=== PATIENT | female | born 1935 | race Hispanic/Latino ===

== ENCOUNTER 2017-06-26 20:02 | Observation (INO) | payer OTHER ==
--- OUTSIDE RECORDS SUMMARY | 2017-06-26 20:04 | XMS REPORT | Clinical Summary ---
:1935 Author Organization [facility] Address [address] [place] [address] Care Team Providers Name Role Phone Arslan Lema MD Primary Care Provider Allergies Active Allergy Reactions Severity Noted Date Comments Ramipril 10/30/2016 Codeine GI Intolerance 10/30/2016 Propoxyphene N-Acetaminophen 10/30/2016 Hydrocodone 10/30/2016 Feels like "drunk" Morphine Itching 10/30/2016 Clopidogrel GI Intolerance 10/30/2016 Enalapril Maleate 10/30/2016 Hydrocodone-Acetaminophen 10/30/2016 Simvastatin GI Intolerance 10/30/2016 Current Medications Prescription Sig. Disp. Refills Start Date End Date Status bimatoprost Administer 1 Active (LUMIGAN) 0.03 % drop to both ophthalmic drops eyes nightly. insulin regular Inject under the Active (HumuLIN-R, skin 3 (three) NovoLIN-R) 100 times a day. Per unit/mL injection sliding scale atorvastatin Take 40 mg by Active (LIPITOR) 40 MG mouth daily. tablet hydrALAZINE Take 50 mg by Active (APRESOLINE) 50 MG mouth 3 (three) tablet times a day. lisinopril Take 20 mg by Active (PRINIVIL,ZESTRIL) mouth 2 (two) 20 mg tablet times a day. QUEtiapine Take 50 mg by Active (SEROquel) 50 MG mouth nightly. tablet gabapentin Take 300 mg by Active (NEURONTIN) 300 mg mouth 2 (two) capsule times a day. warfarin Take 4 mg by Active (COUMADIN) 4 MG mouth daily. tablet B complex-minerals Take by mouth. Active tablet calcium acetate TK 2 CS PO WITH 11 10/07/2016 Active (PHOSLO) 667 mg MEALS AND 1 C PO capsule WITH SNACK carvedilol (COREG) Take 6.25 mg by Active 6.25 MG tablet mouth 2 (two) times a day with meals. citalopram Take 1.5 tablets 0 08/17/2016 Active (CeleXA) 20 MG by mouth daily. tablet clonIDINE TK 1 T PO Q 8 H 2 10/03/2016 Active (CATAPRES) 0.1 MG PRN IF SYSTOLIC tablet BLOOD PRESSURE IS GREATER THAN 160-180 fluticasone USE 1 SPRAY IEN 5 10/25/2016 Active (FLONASE) 50 BID mcg/actuation nasal spray GÓMEZ-CASSIA RX 1 tablet daily. 8 09/27/2016 Active 1-60-300 mg-mg-mcg tablet carvedilol (COREG) Take 12.5 mg by Discontinued 12.5 MG tablet mouth 2 (two) 7 times a day with meals. citalopram Take 10 mg by Discontinued (CeleXA) 10 MG mouth daily. 7 tablet traMADol (ULTRAM) Take 1 tablet 40 tablet 0 11/08/2016 50 mg tablet (50 mg total) by 7 mouth every 6 (six) hours as needed for moderate pain for up to 40 doses. Active Problems No known active problems Encounters Date Type Specialty Care Team Description 11/09/2016 Office Visit General Surgery [place], ESRD on dialysis Herman Bazan MD (Primary Dx) 11/08/2016 Hospital Encounter General Surgery [place], ESRD (end stage renal Herman Bazan MD disease) on dialysis (Primary Dx) 11/08/2016 Procedure Pass General Surgery 11/08/2016 Surgery General Surgery [place], LEFT UPPER EXTREMITY Herman Bazan MD AV GRAFT REVISION 10/30/2016 Pre-Admit Testing Pre-Admission [place], Preop testing Appointment Testing Herman Bazan MD (Primary Dx) 10/30/2016 Office Visit General Surgery [place], Hemodialysis access, Herman Bazan MD AV graft (Primary Dx) 10/30/2016 Anesthesia Event General [facility], TOMAS after 06/25/2016 Social History Tobacco Use Types Packs/Day Years Used Date Former Smoker Cigarettes Quit: 1989 Smokeless Tobacco: Never Used Alcohol Use Drinks/Week oz/Week Comments Yes wine occasionally Sex Assigned at Date Recorded Not on file Last Filed Vital Signs Vital Sign Reading Time Taken Blood Pressure 159/72 11/08/2016 3:26 PM CDT Pulse 71 11/08/2016 3:26 PM CDT Temperature 36.5 C (97.7 F) 11/08/2016 3:26 PM CDT Respiratory Rate 18 11/08/2016 3:26 PM CDT Oxygen Saturation 95% 11/08/2016 3:26 PM CDT Inhaled Oxygen Concentration - - Weight 68.5 kg (151 lb) 11/08/2016 10:10 AM CDT Height 160 cm (5' 3") 11/08/2016 10:10 AM CDT Body Mass Index 26.75 11/08/2016 10:10 AM CDT Plan of Treatment Health Maintenance Due Date Last Done Comments ZOSTER VACCINE 1996 PNEUMOCOCCAL POLYSACCHARIDE VACCINE AGE 65 AND OVER 2001 PNEUMOCOCCAL-13 2001 INFLUENZA VACCINE 10/24/2016 Implants Implanted Type Area Grounds Supervisor Device Expiration Model / Identifier Date Serial / Lot Graft Vasclr Acuseal 40cm 6mm - [id number] - [id number] Vascular N/A: N/A W L GORE 05/19/2019 [id number] / Implanted: Qty: 1 on 11/08/2016 by Herman Fraga MD Graft [id number] / [id number] Procedures Procedure Name Priority Date/Time Associated Diagnosis Comments NJ AN ELECTIVE Routine 11/08/2016 11:06 AM SUPRAGLOTTIC AIRWAY CDT Procedure Note - Gene Coffman MD - 11/08/2016 11:05 AM CDT Airway Performed by: GENE COFFMAN Authorized by: GENE COFFMAN Location: OR Urgency: Elective Difficult Airway: No Preoxygenated with 100% O2: No C-spine Precautions Maintained Throughout: No Mask Ventilation: Assisted mask Final Airway Type: Supraglottic airway Final LMA: Classic LMA Size: 4 Number of Attempts at Approach: 1 LEFT UPPER EXTREMITY AV GRAFT 11/08/2016 10:30 AM CDT End stage renal disease REVISION after 06/25/2016 Results POC glucose (11/08/2016 12:58 PM)Only the most recent of2 resultswithin the time period is included. Component Value Ref Range POC glucose 85 65 - 99 mg/dL Comment: Meter ID: [id number] Shredded Filler Cigar Maker Machine: Beni Lowry Specimen Performing Laboratory [facility] DEPARTMENT OF PATHOLOGY AND [facility] MEDICINE [address] [place] [id number] Potassium, syringe (11/08/2016 9:50 AM) Component Value Ref Range Potassium, syringe 3.7 3.5 - 5.0 mEq/L Specimen Performing Laboratory Blood [facility] DEPARTMENT OF PATHOLOGY AND [facility] MEDICINE [address] [place] [address] Hemoglobin, syringe (11/08/2016 9:50 AM) Component Value Ref Range Hemoglobin, syringe 10.2 (L) 12.0 - 16.0 g/dL Specimen Performing Laboratory Blood [facility] DEPARTMENT OF PATHOLOGY AND [facility] MEDICINE [address] [place] [phone] Glucose level, syringe (11/08/2016 9:50 AM) Component Value Ref Range Glucose, syringe 99 65 - 99 mg/dL Specimen Performing Laboratory Blood [facility] DEPARTMENT OF PATHOLOGY [address] [address] Partial thromboplastin time, activated (11/08/2016 9:50 AM)Only the most recent of2 resultswithin the time period is included. Component Value Ref Range PTT 37.3 (H) 23.0 - 36.0 sec Comment: PTT therapeutic range for unfractionated heparin is 61.0-112.0 seconds which corresponds to Anti-Xa 0.3-0.7 U/ml. Specimen Performing Laboratory Blood [facility] DEPARTMENT PATHOLOGY [facility] MEDICINE [address] [place] [address] Prothrombin time with INR (11/08/2016 9:50 AM)Only the most recent of2 resultswithin the time period is included. Component Value Ref Range Prothrombin time 15.4 (H) 12.0 - 15.0 sec INR 1.2 Comment: The International Normalized Ratio (INR) is a therapeutic monitoring tool for patients who are stable on oral anticoagulant therapy. An INR of 2.0-3.0 is suggested for deep vein thrombosis/pulmonary embolism. Specimen Performing Laboratory Blood [facility] DEPARTMENT PATHOLOGY AND [facility] MEDICINE [address] [place] [address] ECG Pre/Post Op (10/30/2016 1:45 PM) Component Value Ref Range Ventricular rate 66 Atrial rate 66 QRSD interval 84 QT interval 442 QTC interval 463 QRS axis 1 56 T wave axis 112 EKG impression Electronic atrial pacemaker-Low voltage QRS-Cannot rule out Anterior infarct , age undetermined-Abnormal ECG- Specimen Performing Laboratory [facility] MUSE [address] [place] [phone] Estimated GFR (10/30/2016 1:29 PM) Component Value Ref Range GFR Non Af Amer 6 (A) mL/min/1.73 m2 GFR Af Amer 7 (A) mL/min/1.73 m2 Comment: Chronic kidney disease: <60 mL/min/1.73m2 Kidney failure: <15 mL/min/1.73m2 The estimated GFR is calculated from the IDMS-traceable Modification of Diet in Renal Disease Equation. The accuracy of the calculation is poor when the creatinine is normal. Calculated values >90 mL/min/1.73m2 are not reported. This equation has not been validated in children (<18 years), women, the elderly (>70 years), or ethnic groups other than Caucasians and Americans. Specimen Performing Laboratory Plasma specimen [facility] DEPARTMENT OF PATHOLOGY AND GENOMIC MEDICINE [address] [place] [address] CBC with platelet and differential (10/30/2016 1:29 PM) Component Value Ref Range WBC 7.17 4.50 - 11.00 k/uL RBC 3.32 (L) 4.20 - 5.50 m/uL HGB 10.1 (L) 12.0 - 16.0 g/dL HCT 33.1 (L) 37.0 - 47.0 % MCV 99.7 82.0 - 100.0 fL MCH 30.4 27.0 - 34.0 pg MCHC 30.5 (L) 31.0 - 37.0 g/dL RDW - SD 51.8 37.0 - 55.0 fL MPV 10.2 8.8 - 13.2 fL Platelet count 278 150 - 400 k/uL Nucleated RBC 0.00 /100 WBC Neutrophils 71.1 (H) 39.0 - 69.0 % Lymphocytes 14.4 (L) 25.0 - 45.0 % Monocytes 9.1 0.0 - 10.0 % Eosinophils 4.2 0.0 - 5.0 % Basophils 0.4 0.0 - 1.0 % Immature granulocytes 0.8Comment: "Immature granulocytes" 0.0 - 1.0 % (promyelocytes, myelocytes, metamyelocytes) Specimen Performing Laboratory Blood [facility] DEPARTMENT OF PATHOLOGY AND GENOMIC MEDICINE [address] [place] [address] Hemoglobin A1c (10/30/2016 1:29 PM) Component Value Ref Range Hemoglobin A1C 6.5 (H) 4.0 - 5.6 % Comment: HbA1c cutoffs for diagnosing diabetes: 4.0% - 5.6%=normal 5.7% - 6.4%=increased risk for diabetes (prediabetes) >=6.5%=diabetes Goals for glycemic control (ADA 2016) < 7.0%Target for non adults with diabetes. More or less stringent targets may be appropriate for individual patients. <7.5% Target for Children and adolescents with type 1 diabetes. Specimen Performing Laboratory Blood [facility] DEPARTMENT OF PATHOLOGY AND GENOMIC MEDICINE [address] [place] [address] Comprehensive metabolic panel (10/30/2016 1:29 PM) Component Value Ref Range Sodium 135 135 - 148 mEq/L Potassium 4.7 3.5 - 5.0 mEq/L Chloride 94 (L) 98 - 112 mEq/L CO2 26 24 - 31 mEq/L Anion gap 15 7 - 15 mEq/L Comment: Starting from June , anion gap calculation no longer incorporates potassium. Please note the change. BUN 30 (H) 8 - 23 mg/dL Creatinine 6.6 (H) 0.5 - 0.9 mg/dL Glucose 104 (H) 65 - 99 mg/dL Calcium 9.6 8.8 - 10.2 mg/dL Protein 6.9 6.3 - 8.3 g/dL Comment: [place] 4.6-7.0 g/dL 1 week 4.4-7.6 g/dL 7 months-1year5.1-7.3 g/dL 1-2 years5.6-7.5 g/dL >3 years6.0-8.0 g/dL 18-150 6.3-8.3 g/dL Albumin 3.2 (L) 3.5 - 5.0 g/dL A/G ratio 0.9 0.7 - 3.8 Alkaline phosphatase 119 (H) 35 - 104 U/L AST 18 10 - 35 U/L ALT 14 5 - 50 U/L Total bilirubin 0.4 0.0 - 1.2 mg/dL Specimen Performing Laboratory Plasma specimen [facility] DEPARTMENT OF PATHOLOGY AND GENOMIC MEDICINE [address] [place] [address] after 06/25/2016 Insurance Payer Benefit Plan / Group Subscriber ID Type Phone Address MEDICARE MEDICARE PART A AND B xxxxxxxxxx Medicare [place], [place] [phone] [place], [place] [address]
[2017-06-26 21:02] LABS: Absolute Lymphocytes (CBC) 1.2 K/uL (0.7-4.9); Absolute Monocytes 0.6 K/uL (0.1-1.3); Absolute Neutrophil 6.6 K/uL (1.8-8.0); Basophils % 0.9 % (0-1.3); Eosinophils % 2.7 % (0-4.4); Hematocrit 38.9 % (36.0-45.0); Lymphocytes % 13.5 % (15.3-44.8); MCH 30.6 pg (27.0-35.0); MCV 93.3 fL (80-100); MPV 8.3 fL (7.6-11.3); Monocytes % 6.9 % (3.3-12.3); RBC Red Blood Cell Count 4.16 M/uL (3.86-4.86)
[2017-06-26] MEDS ORDERED: MUPIROCIN 2% OINT 22GM TUBE TOP ONE (21:07)
[2017-06-26] MEDS ORDERED: NA CHLORIDE 0.9% 1,000 ML ONE (21:07)
[2017-06-26 21:21] LABS: Albumin 3.9 g/dL (3.2-5.5); Bilirubin Total 0.8 mg/dL (0.3-1.2); Protein, Total 7.8 g/dL (6.0-8.3)
--- NOTE | 2017-06-26 21:39 | EDPHYS ---
Physician Documentation [facility] Name: Dianelys Carroll Age: 82 yrs Sex: Female : 1935 Arrival Date: 06/26/2017 Time: 20:06 Bed 15 Private MD: Arslan Lema ED Physician Michael Tamayo HPI: 06/26 20:43 This 82 yrs old Female presents to ER via Wheelchair with complaints of Toe aron Injury. 20:43 The patient presents with pain, tenderness. The complaints affect the right foot. aron Context: The problem was sustained at an unknown location. Onset: The symptoms/episode began/occurred 2 day(s) ago. Modifying factors: The symptoms are alleviated by elevation of extremity, the symptoms are aggravated by nothing. wearing shoes. Associated signs and symptoms: The patient has no apparent associated signs or symptoms. Severity of symptoms: At their worst the symptoms were mild, moderate, in the emergency department the symptoms are unchanged. The patient has experienced similar episodes in the past, several times. Historical: - Allergies: 20:17 clopidogrel bisulfate; aj 20:17 Codeine; aj 20:17 enalapril maleate; aj 20:17 enalaprilat dihydrate; aj 20:17 hydrocodone bitartrate; aj 20:17 OPIATES; aj 20:17 propoxyphene napsylate; aj 20:17 Ramipril; aj 20:17 Simvastatin; aj 20:17 Demerol; aj - Home Meds: 20:17 carvedilol Oral [Active]; insulin [Active]; carvedilol 12.5 mg oral tab 1 tab 2 times aj per day [Active]; Lipitor 40 mg Oral tab 1 tab once daily [Active]; lisinopril 20 mg Oral tab 1 tab once daily [Active]; Seroquel 50 mg Oral tab 1 tab 2 times per day [Active]; citalopram oral 30mg once daily [Active]; gabapentin 300 mg oral cap 1 cap 3 times per day [Active]; - PMHx: 20:17 Diabetes - IDDM; ESRD; Pacemaker; Dialysis; aj - PSHx: 20:17 dialysis graft to left arm; Bladder suspension; Carpal Tunnel Repair; Hysterectomy; aj Kidney stents; cataract surgery; - Immunization history:: Adult Immunizations up to date. - Social history:: Smoking status: Patient/guardian denies using tobacco. - Family history:: not pertinent. ROS: 20:43 Constitutional: Negative for fever, chills, and weight loss, Eyes: Negative for injury, aron pain, redness, and discharge, ENT: Negative for injury, pain, and discharge, Neck: Negative for injury, pain, and swelling, Cardiovascular: Negative for chest pain, palpitations, and edema, Respiratory: Negative for shortness of breath, cough, wheezing, and pleuritic chest pain, Abdomen/GI: Negative for abdominal pain, nausea, vomiting, diarrhea, and constipation, Back: Negative for injury and pain, : Negative for injury, bleeding, discharge, and swelling, Skin: Negative for injury, rash, and discoloration, Neuro: Negative for headache, weakness, numbness, tingling, and seizure, Psych: Negative for depression, anxiety, suicide ideation, homicidal ideation, and hallucinations, Allergy/Immunology: Negative for hives, rash, and allergies, Endocrine: Negative for neck swelling, polydipsia, polyuria, polyphagia, and marked weight changes. 20:43 MS/extremity: Positive for decreased range of motion, pain, tenderness, of the ball of right foot. Exam: 20:43 Constitutional: This is a well developed, well nourished patient who is awake, alert, aron and in no acute distress. Head/Face: Normocephalic, atraumatic. Eyes: Pupils equal round and reactive to light, extra-ocular motions intact. Lids and lashes normal. Conjunctiva and sclera are non-icteric and not injected. Cornea within normal limits. Periorbital areas with no swelling, redness, or edema. ENT: Nares patent. No nasal discharge, no septal abnormalities noted. Tympanic membranes are normal and external auditory canals are clear. Oropharynx with no redness, swelling, or masses, exudates, or evidence of obstruction, uvula midline. Mucous membranes moist. Neck: Trachea midline, no thyromegaly or masses palpated, and no cervical lymphadenopathy. Supple, full range of motion without nuchal rigidity, or vertebral point tenderness. No Meningismus. Chest/axilla: Normal chest wall appearance and motion. Nontender with no deformity. No lesions are appreciated. Cardiovascular: Regular rate and rhythm with a normal S1 and S2. No gallops, murmurs, or rubs. Normal PMI, no JVD. No pulse deficits. Respiratory: Lungs have equal breath sounds bilaterally, clear to auscultation and percussion. No rales, rhonchi or wheezes noted. No increased work of breathing, no retractions or nasal flaring. Abdomen/GI: Soft, non-tender, with normal bowel sounds. No distension or tympany. No guarding or rebound. No evidence of tenderness throughout. Back: No spinal tenderness. No costovertebral tenderness. Full range of motion. Female : Normal external genitalia. Neuro: Awake and alert, GCS 15, oriented to person, place, time, and situation. Cranial nerves II-XII grossly intact. Motor strength 5/5 in all extremities. Sensory grossly intact. Cerebellar exam normal. Normal gait. Psych: Awake, alert, with orientation to person, place and time. Behavior, mood, and affect are within normal limits. 20:43 Skin: Appearance: Color: erythematous, Temperature: cool, Moisture: dry, petechiae, not noted, ecchymosis, not noted, diaphoresis is not appreciated. Vital Signs: 20:17 BP 85 / 47; Pulse 81; Resp 18; Temp 97.5; Pulse Ox 92% on R/A; Weight 66 kg; Height 5 aj ft. 3 in. (160.02 cm); 21:30 BP 115 / 57; Pulse 80; Resp 14; Pulse Ox 98% ; bp 22:30 BP 118 / 73; Pulse 73; Resp 19; Pulse Ox 97% ; bp 23:08 BP 111 / 62; Pulse 73; Resp 17; Pulse Ox 99% on R/A; Pain 0/10; bs1 06/27 00:00 BP 115 / 68; Pulse 82; Resp 16; Pulse Ox 99% on R/A; Pain 0/10; bs1 06/26 20:17 Body Mass Index 25.77 (66.00 kg, 160.02 cm) [facility]: 06/26 20:23 Patient medically screened. [facility] 20:43 Data reviewed: vital signs, nurses notes, lab test result(s), EKG, radiologic studies, aron doppler, plain films. 06/26 20:42 Order name: CBC with Diff; Complete Time: 21:25 [facility] 06/26 20:42 Order name: Comprehensive Metabolic Panel [facility] 06/26 20:46 Order name: Troponin I; Complete Time: 21:25 [facility] 06/26 20:58 Order name: Creatine Phosphokinase EDUT 06/26 20:42 Order name: Chest Single View XRAY [facility] 06/26 20:42 Order name: US Lower Extremity (Artery [employer]) [facility] 06/26 20:42 Order name: Foot Right 2 View XRAY [facility] 06/26 20:58 Order name: CKMB Creatine Kinase MB EDUT 06/26 22:00 Order name: Sed Rate [facility] 06/26 23:19 Order name: Sedimentation Rate, Stephanieren EDUT 06/26 20:42 Order name: EKG; Complete Time: 20:43 [facility] 06/26 20:42 Order name: EKG - Nurse/Tech; Complete Time: 20:53 [facility] Administered Medications: 21:09 Drug: Bactroban Ointment 2 % 1 application Route: Topical; Site: affected area; bs1 21:18 Drug: NS 0.9% 1000 ml Route: IV; Rate: 100 ml/hr; Site: right forearm; bs1 22:59 Follow up: IV Status: Completed infusion bp 22:21 Drug: Zosyn 2.25 grams Route: IVPB; Infused Over: 60 mins; Site: right hand; bp 22:59 Follow up: IV Status: Completed infusion bp Disposition: 06/26/17 21:38 Hospitalization ordered by Nisha Lee for Observation. Preliminary diagnosis are Other peripheral vascular diseases, Type 1 diabetes mellitus, Non-pressure chronic ulcer of other part of right foot, Hypotension - elevated troponion. - Bed requested for Telemetry/MedSurg (observation). - Status is Observation. bs1 - Condition is Fair. - Problem is new. - Symptoms have improved. UTI on Admission? No Signatures: Dispatcher [employer] EDMS Vanda Mejia RN RN kl Myers, Amanda, RN RN aj Anderson, Corey, MD MD cha Peltier, Brian, RN RN bp Salazar, Brittany, RN RN bs1 Corrections: (The following items were deleted from the chart) 20:58 20:46 CREATINE PHOSPHOKINASE+C.LAB.BRZ ordered. EDMS EDMS 20:58 20:46 CKMB+C.LAB.BRZ ordered. EDMS EDMS
--- NOTE | 2017-06-26 21:39 | ER ---
Nurse's Notes [facility] Name: Dianelys Carroll Age: 82 yrs Sex: Female : 1935 Arrival Date: 06/26/2017 Time: 20:06 Bed 15 Private MD: Arslan Lema Diagnosis: Other peripheral vascular diseases;Type 1 diabetes mellitus;Non-pressure chronic ulcer of other part of right foot;Hypotension-elevated troponion Presentation: 06/26 20:13 Presenting complaint: Patient states: Wound to right foot for 1 week. Transition of aj care: patient was not received from another setting of care. Onset of symptoms was June 19, 2017. Care prior to arrival: None. 20:13 Method Of Arrival: Wheelchair aj 20:13 Acuity: EFRAÍN 3 aj Triage Assessment: 20:17 General: Appears in no apparent distress. comfortable, Behavior is calm, cooperative, aj appropriate for age. Pain: Complains of pain in medial aspect of right toes. Neuro: Level of Consciousness is awake, alert, obeys commands, Oriented to person, place, time, situation. Respiratory: Airway is patent Respiratory effort is even, unlabored, Respiratory pattern is regular, symmetrical. Derm: Skin is intact, is healthy with good turgor, Skin is pink, warm \T\ dry. normal, Wound noted medial aspect of right toes. Historical: - Allergies: 20:17 clopidogrel bisulfate; aj 20:17 Codeine; aj 20:17 enalapril maleate; aj 20:17 enalaprilat dihydrate; aj 20:17 hydrocodone bitartrate; aj 20:17 OPIATES; aj 20:17 propoxyphene napsylate; aj 20:17 Ramipril; aj 20:17 Simvastatin; aj 20:17 Demerol; aj - Home Meds: 20:17 carvedilol Oral [Active]; insulin [Active]; carvedilol 12.5 mg oral tab 1 tab 2 times aj per day [Active]; Lipitor 40 mg Oral tab 1 tab once daily [Active]; lisinopril 20 mg Oral tab 1 tab once daily [Active]; Seroquel 50 mg Oral tab 1 tab 2 times per day [Active]; citalopram oral 30mg once daily [Active]; gabapentin 300 mg oral cap 1 cap 3 times per day [Active]; - PMHx: 20:17 Diabetes - IDDM; ESRD; Pacemaker; Dialysis; aj - PSHx: 20:17 dialysis graft to left arm; Bladder suspension; Carpal Tunnel Repair; Hysterectomy; aj Kidney stents; cataract surgery; - Immunization history:: Adult Immunizations up to date. - Social history:: Smoking status: Patient/guardian denies using tobacco. - Family history:: not pertinent. Screenin:07 Abuse screen: Denies threats or abuse. Denies injuries from another. Nutritional bs1 screening: No deficits noted. Tuberculosis screening: No symptoms or risk factors identified. Fall Risk None identified. Assessment: 21:03 General: Appears in no apparent distress. uncomfortable, Behavior is calm, cooperative, bs1 appropriate for age. Pain: Complains of pain in ball of right foot Pain does not radiate. Pain currently is 6 out of 10 on a pain scale. Neuro: Level of Consciousness is awake, alert, obeys commands, Oriented to person, place, time, situation, Appropriate for age Pantograph Watcher are equal bilaterally Moves all extremities. Cardiovascular: Denies chest pain, palpitations, shortness of breath, Heart tones S1 S2 present Capillary refill < 3 seconds Patient's skin is warm and dry. Respiratory: Airway is patent Trachea midline Respiratory effort is even, unlabored, Respiratory pattern is regular, symmetrical, Breath sounds are clear bilaterally. GI: No deficits noted. No signs and/or symptoms were reported involving the gastrointestinal system. : No deficits noted. No signs and/or symptoms were reported regarding the genitourinary system. EENT: No deficits noted. No signs and/or symptoms were reported regarding the EENT system. Derm: Skin open sore noted to right ball of foot, red/swollen, no drainage noted, no sign of infection noted. Musculoskeletal: Circulation, motion, and sensation intact. Capillary refill < 3 seconds, Range of motion: limited in right foot Swelling present in ball of right foot and right foot small healing sores noted to left /right foot, old sore noted to right 3rd digit. No drainage noted. Some discoloration noted to bilateral feet, purple in color. 21:26 Reassessment: Cleansed right foot w/ NS, bactroban applied, with band aid. Tolerated bs1 well. 22:30 Reassessment: DIVINSKI AT B/S FOR ADMIT EVAL. bp 23:08 Reassessment: No changes from previously documented assessment. Patient and/or family bs1 updated on plan of care and expected duration. Pain level reassessed. Patient is alert, oriented x 3, equal unlabored respirations, skin warm/dry/pink. 06/27 00:00 Reassessment: Patient appears in no apparent distress at this time. Patient and/or bs1 family updated on plan of care and expected duration. Pain level reassessed. Patient is alert, oriented x 3, equal unlabored respirations, skin warm/dry/pink. Vital Signs: 06/26 20:17 BP 85 / 47; Pulse 81; Resp 18; Temp 97.5; Pulse Ox 92% on R/A; Weight 66 kg; Height 5 aj ft. 3 in. (160.02 cm); 21:30 BP 115 / 57; Pulse 80; Resp 14; Pulse Ox 98% ; bp 22:30 BP 118 / 73; Pulse 73; Resp 19; Pulse Ox 97% ; bp 23:08 BP 111 / 62; Pulse 73; Resp 17; Pulse Ox 99% on R/A; Pain 0/10; bs1 06/27 00:00 BP 115 / 68; Pulse 82; Resp 16; Pulse Ox 99% on R/A; Pain 0/10; bs1 06/26 20:17 Body Mass Index 25.77 (66.00 kg, 160.02 cm) aj ED Course: 06/26 20:06 Patient arrived in ED. es 20:06 Arslan Lema MD is Private Physician. es 20:14 Triage completed. aj 20:17 Arm band placed on left wrist. Patient placed in an exam room. aj 20:23 Michael Tamayo MD is Attending Physician. aron 20:25 Jennifer Costa, JOSE is Primary Nurse. bs1 20:53 Troponin I Sent. cc 20:53 Comprehensive Metabolic Panel Sent. cc 20:53 CBC with Diff Sent. cc 20:53 Initial lab(s) drawn, by me, sent to lab. Inserted saline lock: 20 gauge in right cc wrist, using aseptic technique. 20:57 EKG done, by ED staff, reviewed by Michael Tamayo MD. ao 21:02 X-ray completed. Portable x-ray completed in exam room. Patient tolerated procedure kc2 well. 21:03 Chest Single View XRAY In Process Unspecified. EDMS 21:03 Foot Right 2 View XRAY In Process Unspecified. EDMS 21:08 Patient has correct armband on for positive identification. Bed in low position. Call bs1 light in reach. Side rails up X 1. Pulse ox on. NIBP on. 21:18 Ultrasound completed. Patient tolerated well. aa4 21:23 US Lower Extremity (Artery Uni Ltd) In Process Unspecified. EDMS 21:36 Nisha Lee MD is Hospitalizing Provider. aron 23:53 No provider procedures requiring assistance completed. Patient admitted, IV remains in bp place. Administered Medications: 21:09 Drug: Bactroban Ointment 2 % 1 application Route: Topical; Site: affected area; bs1 21:18 Drug: NS 0.9% 1000 ml Route: IV; Rate: 100 ml/hr; Site: right forearm; bs1 22:59 Follow up: IV Status: Completed infusion bp 22:21 Drug: Zosyn 2.25 grams Route: IVPB; Infused Over: 60 mins; Site: right hand; bp 22:59 Follow up: IV Status: Completed infusion bp Outcome: 21:38 Decision to Hospitalize by Provider. aron 23:53 Admitted to Tele accompanied by tech, family with patient, via stretcher, room 405, bp with chart, Report called to 4TH FLOOR TELE 23:53 Condition: stable 23:53 Instructed on the need for admit. 04/04 00:08 Patient left the ED. bs1 Signatures: Dispatcher [employer] Loretta Johnson, RN RN Mcihael Guillermo MD MD cha Salyer, Edna es Frazier, Amanda aa4 Jaqueline Balderas cc Yandel Beasley, RN Minnie Alonso 2 Rajeev Mercado RN RN bp Jennifer Costa RN RN bs1 Corrections: (The following items were deleted from the chart) 06/26 20:58 20:53 CKMB+C.LAB.BRZ drawn and sent. cc EDWI 20:58 20:53 CREATINE PHOSPHOKINASE+C.LAB.BRZ drawn and sent. cc EDMS
[2017-06-26] MEDS ORDERED: D50W 25 GM/50 ML SYRINGE IV PRN (21:46)
[2017-06-26] MEDS ORDERED: GLUCAGON 1 MG/VIAL IM PRN (21:46)
--- NOTE | 2017-06-26 22:00 | RAD REPORT ---
EXAM DESCRIPTION: RAD - Chest Single View - 06/26/2017 9:03 pm CLINICAL HISTORY: Cough COMPARISON: January 2017 TECHNIQUE: AP portable chest image was obtained 2055 hours . FINDINGS: Lung volumes are low. Interstitial markings are prominent, accentuated by shallow inspirat ion. Lung markings are less pronounced than seen previously. No focal consolidation. Early edema or i nfiltrate can be masked. Pacemaker is in place. Heart size is normal for shallow inspiration. No pamella urable pleural effusion and no pneumothorax. No gross bony abnormality seen. No acute aortic findings suspected. IMPRESSION: No peripheral mass or consolidation. Prominent interstitial markings, decreased from comparison.
--- NOTE | 2017-06-26 22:03 | RAD REPORT ---
EXAM DESCRIPTION: RAD - Foot Right 2 View - 06/26/2017 9:04 pm CLINICAL HISTORY: Soft tissue wound, location not specified COMPARISON: None. FINDINGS: No fracture, dislocation or periosteal reaction. Underlying osteopenic changes are present . Plantar and Achilles spurs are present. Dense arterial tree calcifications are noted. IP joint dege nerative changes are present. There degenerative changes moderate in degree at the tibiotalar joint s pace. No destructive bone process seen. No air or foreign body in the soft tissues. IMPRESSION: Osteopenic and degenerative bony changes are present. No acute or destructive bone proce ss seen.
--- NOTE | 2017-06-26 22:12 | RAD REPORT ---
EXAM DESCRIPTION: VAS - Lower Extremity Artery Uni Ltd - 06/26/2017 9:22 pm CLINICAL HISTORY: Nonhealing wound COMPARISON: None. TECHNIQUE: Doppler evaluation of the right lower extremity arterial tree performed. Waveforms and ve locity values were obtained along with visual inspection. FINDINGS: Biphasic waveform seen along the length of right lower extremity. Atherosclerotic calcific ations are present moderate in severity. No flow restricting lesion or occlusion identified. Common femoral artery velocity was 59 cm/second. Superficial femoral artery velocity range from 50-77 cm/second. Popliteal was 26 cm/second with posterior tibial and dorsalis pedis artery velocities 37 cm/second and 59 cm/second, respectively. IMPRESSION: At least moderate severity right lower extremity peripheral arterial disease is present. No occlusion or focal flow restricting lesion identified.
[2017-06-26] MEDS ORDERED: PIPER/TAZO/NS 2.25gm 2.25 GM/50 ML BAG ONE (22:29)
[2017-06-27] MEDS ORDERED: VANCOMYCIN 1 GM in NA CHLORIDE 0.9% 500 ML IVPB ONE (00:14)
[2017-06-27] MEDS ORDERED: ONDANSETRON 4 MG/2 ML VIAL IV PRN (00:14)
[2017-06-27 00:39] VITALS: BMI 25.8
--- NOTE | 2017-06-27 01:01 | P.HP ---
Certification for Inpatient Patient admitted to: Observation With expected LOS: <2 Midnights Practitioner: I am a practitioner with admitting privileges, knowledge of patient current condition, hospital course, and medical plan of care. Services: Services provided to patient in accordance with Admission requirements found in Title 42 Section 412.3 of the Code of Federal Regulations Patient History Date of Service: 06/26/17 Reason for admission: diabetic foot ulcer History of Present Illness: Ms Carroll is an 82 years old woman with history of diabetes mellitus II, pacemaker placement, HTN, ESRD on HD, who start about 1 week ago with a bump in her right foot. It was located externally on right toe. Gradually it start growing, and was uncomfortable using shoes. Then lesion was getting worse, become ulcerated. The patient noted some secretions coming out. She also has had purple discoloration of the her right foot. She states that had fever yesterday, bur did not measure her temp. Dialysis nurse and home care nurse were agree to have the patient evaluated by a physician. At arrival the patient was afebrile, WBC WNL. Allergies ramipril [From Altace] Allergy (Unknown, Verified 05/23/16 14:17) Hives/Rash clopidogrel bisulfate [From Plavix] Allergy (Verified 05/23/16 14:17) Hives enalapril maleate [From Vasotec] Allergy (Verified 05/23/16 14:17) Hives enalaprilat dihydrate [From Vasotec] Allergy (Verified 05/23/16 14:17) Hives morphine Allergy (Verified 02/05/17 10:47) Itching/Hives/Rash propoxyphene napsylate [From Darvocet-N 100] Allergy (Verified 05/23/16 14:17) Hives/Rash simvastatin [From Zocor] Allergy (Verified 05/23/16 14:17) Hives/Rash acetaminophen [From Vicodin] Adverse Reaction (Mild, Verified 05/23/16 14:17) vomiting hives codeine [Codeine] Adverse Reaction (Mild, Verified 05/23/16 14:17) vomiting rash hydrocodone [Hydrocodone] Adverse Reaction (Mild, Verified 05/23/16 14:17) vomiting rash hydrocodone bitartrate [From Vicodin] Adverse Reaction (Mild, Verified 05/23/16 14:17) vomiting hives Hydrocodone-Acetaminophen Allergy (Mild, Uncoded 05/21/15 02:14) Hives/Rash Codeine Allergy (Unknown, Uncoded 05/21/15 02:14) Hives/Rash Home Medications: Citalopram Hydrobromide [Celexa] 10 mg PO DAILY 09/09/11 Hydralazine HCl [Apresoline] 50 mg PO TID 09/09/11 Lisinopril 20 mg PO BID 09/09/11 Quetiapine Fumarate [Seroquel Xr] 50 mg PO BEDTIME 09/09/11 Bimatoprost [Lumigan Opthalmic Drops*] 1 drop OP BEDTIME 05/20/15 Carvedilol [Coreg] 12.5 mg PO BID 05/20/15 Gabapentin [Gralise] 300 mg PO BID 05/20/15 Insulin -Regular Human [Novolin -R] See Protocol SQ ACHS 05/20/15 Atorvastatin Calcium [Lipitor] 40 mg PO DAILY 01/30/17 Gabapentin [Gralise] 1 tab PO BEDTIME 02/06/17 Prasugrel Hydrochloride [Effient] 10 mg PO DAILY #30 tab 02/07/17 - Past Medical/Surgical History Diabetic: Yes -: depression -: GERD -: HTN -: ESRD -: PACEMAKER -: IDDM -: high cholesterol -: STENTS IN HEART -: STENT IN KIDNEY -: CARPAL TUNNEL R HAND -: BLADDER SUSPENSION - Family History Father Notes: bleeding ulcers Mother -: Heart disease, Hypertension, Stroke Brother -: Heart disease, Diabetes, Stroke, Cancer Notes: esphogeal cancer Sister -: Heart disease, Hypertension, Diabetes - Social History Alcohol use: No CD- Drugs: No Caffeine use: No Place of Residence: Home Review of Systems 10-point ROS is otherwise unremarkable Physical Examination - Vital Signs Temperature: 97.7 F Blood Pressure: 137/64 Pulse: 72 Respirations: 17 Pulse Ox (%): 98 - Physical Exam General: Alert, In no apparent distress HEENT: Atraumatic, PERRLA, Mucous membr. moist/pink, EOMI, Sclerae nonicteric Neck: Supple, 2+ carotid pulse no bruit, No LAD, Without JVD or thyroid abnormality Respiratory: Clear to auscultation bilaterally, Normal air movement Cardiovascular: Regular rate/rhythm, Normal S1 S2 Gastrointestinal: Normal bowel sounds, No tenderness Musculoskeletal: No tenderness Integumentary: Cyanosis (right foot), Diabetic ulcer Neurological: Normal speech, Normal strength at 5/5 x4 extr, Normal tone, Normal affect Lymphatics: No axilla or inguinal lymphadenopathy - Studies Laboratory Data (last 24 hrs) 06/26/17 20:45: Troponin I 0.10 H 06/26/17 20:45: Sodium 133 L, Potassium 5.0, BUN 25 H, Creatinine 5.43 H*, Glucose 119, Total Bilirubin 0.8, AST 16, ALT 13, Alkaline Phosphatase 70 06/26/17 20:45: WBC 8.6, Hgb 12.7, Hct 38.9, Plt Count 273 Assessment and Plan - Problems (Diagnosis) (1) diabetic wound Current Visit: Yes Status: Acute (2) PVD (peripheral vascular disease) Current Visit: Yes Status: Acute (3) ESRD (end stage renal disease) Onset Date: 06/17/14 Current Visit: No Status: Acute (4) Diabetes mellitus Current Visit: No Status: Chronic Qualifiers: Diabetes mellitus type: type 2 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 She has PVD, arterial doppler US shows moderate PVD on the right leg without flow obstruction. Will start empiric antibiotic, consult Dr Marley. She will need a vascular surgeon evaluation down the road. - Advance Directives Does patient have a Living Will: No Does patient have a Durable POA for Healthcare: No - Code Status/Comfort Care Code Status Assessed: Yes Code Status: Full Code
[2017-06-27] MEDS ORDERED: Levofloxacin500mg IV 500 MG/100 ML BAG IV ONE (01:05)
[2017-06-27] MEDS ORDERED: VANCOMYCIN/NS 1 gm 1 GM/250 ML BAG ONE (01:41)
[2017-06-27] MEDS: ACETAMINOPHEN 500 MG TAB PO PRN ×2 (05:18→11:11)
[2017-06-27] MEDS: INSULIN -REGULAR HUMAN 50 UNIT/0.5 ML ML SQ SCH ×2 (07:30→11:30)
--- NOTE | 2017-06-27 07:35 | EKG ---
Test Date: 2017-06-26 Test Time: 20:52:33 Manager Of Application Development: SHAILESH MEASUREMENT RESULTS: Intervals: Rate: 79 MA: QRSD: 158 QT: 464 QTc: 532 [place]: P: MA: QRS: -82 T: 103 INTERPRETIVE STATEMENTS: Ventricular-paced rhythm Abnormal ECG Compared to ECG 02/07/2017 06:35:58 Atrial-sensed ventricular-paced complex(es) or rhythm no longer present Electronically Signed On 06-27-17 07:34:50 CDT by Boris Page
[2017-06-27 11:07] VITALS: O2SAT 95
[2017-06-27] MEDS ORDERED: MANNITOL 25% 12.5 GM/50 ML VIAL IV PRN (11:28)
[2017-06-27] MEDS ORDERED: NA CHLORIDE 0.9% 1,000 ML IV PRN (11:28)
[2017-06-27] MEDS ORDERED: ALBUMIN HUMAN 25% 50 ML IV SCH (12:00)
[2017-06-27] MEDS ORDERED: CA ACETATE 667 MG CAP PO SCH (12:00)
[2017-06-27 12:09] VITALS: BP 150/68; TEMP 97.2
--- NOTE | 2017-06-27 12:58 | P.CNS ---
Date of Consult: 06/27/17 Reason for Consult: wound right foot Requesting Physician: Reddy Ferreira Chief Complaint: diabetic foot ulcer History of Present Illness: Patient states that the wound has been present for several days. Has been applying antibiotic ointment to the wound and irrigating with saliine. Has also applied betadine Allergies ramipril [From Altace] Allergy (Unknown, Verified 06/27/17 03:26) Hives/Rash clopidogrel bisulfate [From Plavix] Allergy (Verified 06/27/17 03:26) Hives enalapril maleate [From Vasotec] Allergy (Verified 06/27/17 03:26) Hives morphine Allergy (Verified 06/27/17 03:26) Itching/Hives/Rash propoxyphene napsylate [From Darvocet-N 100] Allergy (Verified 06/27/17 03:26) Hives/Rash simvastatin [From Zocor] Allergy (Verified 06/27/17 03:26) Hives/Rash acetaminophen [From Vicodin] Adverse Reaction (Mild, Verified 06/27/17 03:26) vomiting hives codeine [Codeine] Adverse Reaction (Mild, Verified 06/27/17 03:26) vomiting rash hydrocodone [Hydrocodone] Adverse Reaction (Mild, Verified 06/27/17 03:26) vomiting rash Home Medications: Citalopram Hydrobromide [Celexa] 30 mg PO DAILY 09/09/11 Hydralazine HCl [Apresoline] 50 mg PO TID 09/09/11 Lisinopril 20 mg PO BID 09/09/11 Quetiapine Fumarate [Seroquel Xr] 50 mg PO BEDTIME 09/09/11 Bimatoprost [Lumigan Opthalmic Drops*] 1 drop OP BEDTIME 05/20/15 Carvedilol [Coreg] 12.5 mg PO BID 05/20/15 Gabapentin [Gralise] 600 mg PO BEDTIME 05/20/15 Insulin -Regular Human [Novolin -R*] See Protocol SQ ACHS 05/20/15 Atorvastatin Calcium [Lipitor] 40 mg PO DAILY 01/30/17 Prasugrel Hydrochloride [Effient*] 10 mg PO DAILY #30 tab 02/07/17 Calcium Acetate 3 cap PO TID 06/27/17 Levofloxacin [Levaquin] 500 mg PO SEECOM #10 tab 06/27/17 - Past Medical/Surgical History Diabetic: Yes -: depression -: GERD -: HTN -: ESRD -: PACEMAKER -: IDDM -: high cholesterol -: PVD -: STENTS IN HEART -: STENT IN KIDNEY -: CARPAL TUNNEL R HAND -: BLADDER SUSPENSION - Family History Father Notes: bleeding ulcers Mother Medical History: Heart disease, Hypertension, Stroke Brother Medical History: Heart disease, Diabetes, Stroke, Cancer Notes: esphogeal cancer Sister Medical History: Heart disease, Hypertension, Diabetes - Social History Smoking Status: Former smoker, Never smoker Alcohol use: No CD- Drugs: No Caffeine use: No Place of Residence: Home Review of Systems 10-point ROS is otherwise unremarkable Physical Examination Temp Pulse Resp BP Pulse Ox 97.2 F 78 18 150/68 H 92 06/27/17 12:00 06/27/17 12:00 06/27/17 12:00 06/27/17 12:00 06/27/17 12:00 General: Alert, In no apparent distress, Oriented x3 Cardiovascular: No edema, Abnormal pulses Capillary refill: <2 Seconds Musculoskeletal: No clubbing, No swelling, No contractures, No erythema, No tenderness, No warmth Integumentary: Diabetic ulcer (ulceration to medial aspect of left 1st mpj measuring 0.5cm X 0.3cm X 0.2cm with fibrinous base, no probing or undermining, no purulence noted. Mild painon palpation of are) Neurological: Sensation intact Laboratory Data (last 24 hrs) 06/26/17 20:45: Troponin I 0.10 H 06/26/17 20:45: Sodium 133 L, Potassium 5.0, BUN 25 H, Creatinine 5.43 H*, Glucose 119, Total Bilirubin 0.8, AST 16, ALT 13, Alkaline Phosphatase 70 06/26/17 20:45: WBC 8.6, Hgb 12.7, Hct 38.9, Plt Count 273 - Problems (1) diabetic wound Current Visit: Yes Status: Acute Conclusions/Impression: Tierney grade II ulceration right foot without signs of symptoms of infection. Santyl to be applied to wound daily with saline moistened gauze. Patient to follow up with Dr. Marley in the wound care center Physician Review: Patient Assessed, Agree with Above Assessment and Plan Critical Care: No
[2017-06-27] MEDS ORDERED: HYDRALAZINE HCL 25 MG TABLET PO SCH (14:00)
--- NOTE | 2017-06-27 20:25 | CON ---
Date of Consultation: 06/27/2017 Additional Consulting Physician: Reddy Ferreira M.D. Reason For Consultation: Elevated BUN and creatinine, hypertension, fluid management, end-stage chandni l disease. History Of Present Illness: This is a pleasant 82-year-old female, well known to me from the [facility] with significant past medical history of end-stage renal disease, on hemodialysis; TTS at [facility]; hypertension; diabetes; coronary artery disease status post PTCA in 2014; hype rlipidemia; COPD; the patient was in her regular state of health, started complaining of pain in her right feet with ulceration and slight swelling, went to the dialysis. After dialysis pain get worse, for that reason home health evaluated her and sent her to the ER. In the ER, the patient was admitt ed. The patient denied any fever or any chills. Past Medical History: 1.End-stage renal disease, on hemodialysis. 2.TTS at [facility]. 3.Hypertension. 4.Diabetes complicated with neuropathy and nephropathy. 5.Coronary artery disease status post PTCA back in 2014. 6.Hyperlipidemia. 7.COPD. Allergies: TO PLAVIX, ENALAPRIL, SIMVASTATIN, RAMIPRIL, TYLENOL, CODEINE, AND HYDROCODONE. Past Surgical History: 1.AV fistula. 2.Cardiac cath. 3.PTCA. 4.Hysterectomy. Social History: Denies smoking, denies drinking, denies drugs abuse. Medications: Home medications include: 1.Aspirin. 2.Insulin. 3.Carvedilol. 4.PhosLo. 5.Gabapentin. 6.Lisinopril. Current medications include: 1.Insulin. 2.Pantoprazole. 3.Tylenol. 4.Citalopram. 5.Lumigan. 6.PhosLo. Physical Examination: Vital Signs: When I saw the patient, blood pressure 150/68, pulse of 78, afebrile. Chest: Clear to auscultation. Heart: S1, S2. Regular. Abdomen: Soft, nontender. Extremities: Tenderness on the right sole. Neurologic: Alert and oriented x3. Review of Systems: Head and Neck: No red eye. No ear pain. GI: No nausea. No vomiting. : No polyuria. No dysuria. No hematuria. 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 Respiratory: No shortness of breath. Cardiovascular: No chest pain. Neurologic: Has neuropathy. Musculoskeletal: Has right foot pain. Endocrine: No polydipsia. Skin: No rash. Laboratory Data: WBC 8.6, H and H 12.7/38.9, and platelet 273. Sodium 133, potassium 5, bicarb 28, BUN 25, creatinine 5, calcium 10.3. Assessment And Plan: 1.End-stage renal disease, marginal hyperkalemia. We will arrange for dialysis tomorrow. 2.Hypertension, controlled optimal. Continue current medication. 3.Electrolyte imbalance with alkalosis, secondary to poor intake, and it will be corrected on dialys is. 4.Anemia of chronic kidney disease. No need for JESSICA. 5.Foot infection. Will follow up with podiatry. The patient cleared from the renal standpoint for discharge planning. JOHNNY Voice ID: [id number] Report ID: [id number]
[2017-06-27] MEDS ORDERED: ATORVASTATIN 40 MG TAB PO SCH (21:00)
[2017-06-27] MEDS ORDERED: HOME MED 1 EA UNK (Gabapentin [Gralise] 600 MG) PO SCH (21:00)
[2017-06-27] MEDS ORDERED: LISINOPRIL 20 MG TAB PO SCH (21:00)
[2017-06-27] MEDS ORDERED: QUETIAPINE FUMARATE 50 MG PO SCH (21:00)
[2017-06-27] MEDS ORDERED: BIMATOPROST OPHTH DROPS/2.5 ML BTL OPTH SCH (21:00)
[2017-06-27] MEDS ORDERED: CARVEDILOL 12.5 MG TAB PO SCH (21:00)
--- NOTE | 2017-06-28 01:11 | DS ---
Date of Discharge: 06/27/2017 Bulk Tank Car Unloader: Dr. Marley. Procedures: None. Admitting Diagnoses: 1.Diabetic foot wound. 2.Peripheral vascular disease. 3.End-stage renal disease. 4.Diabetes mellitus type 2 with long-term use of insulin. 5.Essential hypertension. Discharge Diagnoses: 1.Diabetic foot wound, right. 2.Peripheral vascular disease. 3.End-stage renal disease. 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 5.Essential hypertension. 6.Major depressive disorder. 7.Gastroesophageal reflux disease without esophagitis. 8.Status post pacemaker. 9.Hyperlipidemia. Hospital Course: The patient is an 82-year-old female, who came in with diabetic foot ulcer on her r ight foot. The patient felt that her wound was becoming ulcerated and having some secretions, having some discharge, therefore came in for further evaluation. The patient was started on IV antibiotics . Her white count was normal. Of note, the patient did have a mildly elevated troponin of 0.1, but no chest pain. Her EKG showed a paced rhythm. No acute changes. X-ray of her foot was done, which showed osteopenic and degenerative bony changes. No destructive bone process seen. Dr. Marley with P odiatry was consulted. The patient did well on IV antibiotics. She responded well to treatment. Th e patient was then cleared for discharge and was sent home in a fair condition. Activity: As tolerated. Diet: Diabetic. Followup: Follow up with primary care physician in 1 week. Follow up with electrical inspector, Dr. Marley, in 1 to 2 weeks. Return to ER for worsening condition. Medications: As per medication reconciliation list. Physical Examination: General: Awake, alert, oriented, no acute distress, elderly female. CV: S1, S2. No murmurs. Decreased pulses peripherally. Respiratory: Moving air well bilaterally. No wheezing. Abdomen: Soft, nontender, nondistended. Positive bowel sounds. Extremities: No clubbing, cyanosis, edema. Skin: The patient has some diabetic foot wound on the lateral aspect of the right foot and 5th digit . No active drainage. SA/MODL Voice ID: [id number] Report ID: [id number]
[2017-06-28] MEDS ORDERED: CITALOPRAM 10 MG TABLET PO SCH (09:00)
[2017-06-28] MEDS ORDERED: PRASUGREL (EFFIENT) 10 MG TAB PO SCH (09:00)
[2017-06-28] MEDS ORDERED: COLLAGENASE 30 GM OINTMENT TOP SCH (09:00)
[2017-06-29] MEDS ORDERED: Levofloxacin500mg IV 500 MG/100 ML BAG IV SCH ×2 (09:00)
== END 2017-06-27 15:06 | disposition home or self-care (01) ==
LOC: ER 20:02 → ERHOLD 21:38 → 4TH 23:28
PROVIDERS: ADMIT Internal Medicine; ATTEND Internal Medicine
DX: E11.621 Type 2 diabetes mellitus with foot ulcer (principal); L97.519 Non-pressure chronic ulcer of other part of right foot with unspecified severity; I12.0 Hypertensive chronic kidney disease with stage 5 chronic kidney disease or end stage renal disease; E11.22 Type 2 diabetes mellitus with diabetic chronic kidney disease; N18.6 End stage renal disease; K21.9 Gastro-esophageal reflux disease without esophagitis; I73.9 Peripheral vascular disease, unspecified; I25.10 Atherosclerotic heart disease of native coronary artery without angina pectoris; E78.5 Hyperlipidemia, unspecified; J44.9 Chronic obstructive pulmonary disease, unspecified; E87.3 Alkalosis; D63.1 Anemia in chronic kidney disease; F32.9 Major depressive disorder, single episode, unspecified; Z95.5 Presence of coronary angioplasty implant and graft; Z95.0 Presence of cardiac pacemaker
CPT/HCPCS: 36415; 71045; 73620; 80053; 82550; 82553; 82962 ×2; 84484; 85025; 85652; 87040 ×2; 93005; 93926; 96361; 96365; 99285; G0378 ×2; J2543; J3370; J7030; J3590

== ENCOUNTER 2017-07-03 09:51 | Emergency (ER) | payer OTHER ==
--- OUTSIDE RECORDS SUMMARY | 2017-07-03 09:53 | XMS REPORT | Clinical Summary ---
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 after 07/02/2016 Social History Tobacco Use Types Packs/Day Years [...] 11/08/2016 10:10 AM CDT Plan of Treatment Date Type Specialty Care Team Description 07/09/2017 Office Visit General Surgery Herman Fraga MD [address] [facility] [address] [place] [id number] 07/11/2017 Procedure Pass General Surgery Health Maintenance Due Date Last Done Comments ZOSTER VACCINE 1996 PNEUMOCOCCAL POLYSACCHARIDE VACCINE AGE 65 AND OVER 2001 PNEUMOCOCCAL-13 2001 INFLUENZA VACCINE 10/24/2017 Implants Implanted Type Area Addiction Counselor Device Expiration Model / Identifier Date Serial / Lot Graft Vasclr Acuseal 40cm 6mm - [id number] - [id number] Vascular N/A: N/A [employer] 05/19/2019 [id number] / Implanted: Qty: 1 on 11/08/2016 by Herman Fraga MD Graft [id number] / [id number] Procedures Procedure Name Priority Date/Time Associated Diagnosis Comments VA AN ELECTIVE Routine 11/08/2016 11:06 AM SUPRAGLOTTIC [...] CDT End stage renal disease REVISION after 07/02/2016 Results POC glucose (11/08/2016 12:58 PM)Only the most recent of2 resultswithin the time period is included. Component Value Ref Range POC glucose 85 65 - 99 mg/dL Comment: Meter ID: [id number] Hand Nailer: Beni Lowry Specimen Performing Laboratory [facility] DEPARTMENT OF PATHOLOGY AND GENOMIC MEDICINE [address] [place] [phone] Potassium, syringe (11/08/2016 9:50 AM) Component Value Ref Range Potassium, syringe 3.7 3.5 - 5.0 mEq/L Specimen Performing Laboratory Blood [facility] DEPARTMENT OF PATHOLOGY AND [facility] MEDICINE [address] [place] [phone] Hemoglobin, syringe (11/08/2016 9:50 AM) Component Value Ref Range Hemoglobin, syringe 10.2 (L) 12.0 - 16.0 g/dL Specimen Performing Laboratory Blood [facility] DEPARTMENT OF PATHOLOGY AND [facility] [address] [place] [phone] Glucose level, syringe (11/08/2016 9:50 AM) Component Value Ref Range Glucose, syringe 99 65 - 99 mg/dL Specimen Performing Laboratory Blood [facility] DEPARTMENT OF PATHOLOGY AND [facility] [address] [place] [phone] Partial thromboplastin time, activated (11/08/2016 9:50 AM)Only the most recent of2 resultswithin the time period is included. Component Value Ref Range PTT 37.3 (H) 23.0 - 36.0 sec Comment: PTT therapeutic range for unfractionated heparin is 61.0-112.0 seconds which corresponds to Anti-Xa 0.3-0.7 U/ml. Specimen Performing Laboratory Blood [facility] DEPARTMENT PATHOLOGY [facility] MEDICINE [address] [place] [address] Prothrombin time with INR (11/08/2016 9:50 AM)Only [...] vein thrombosis/pulmonary embolism. Specimen Performing Laboratory Blood [facility] OF PATHOLOG[facility] AND GENOMIC MEDICINE [address] [place] [address] ECG Pre/Post Op (10/30/2016 1:45 PM) Component Value Ref Range Ventricular rate 66 Atrial rate 66 QRSD interval 84 QT interval 442 QTC interval 463 QRS axis 1 56 T wave axis 112 EKG impression Electronic atrial pacemaker-Low voltage QRS-Cannot rule out Anterior infarct , age undetermined-Abnormal ECG- Specimen Performing Laboratory [facility] MUSE [address] [place] [phone] Estimated GFR (10/30/2016 1:29 PM) Component Value [...] and Americans. Specimen Performing Laboratory Plasma specimen [facility] DEPARTMENT OF PATHOLOGY AND GENOMIC MEDICINE [address] [place] [phone] CBC with platelet and differential (10/30/2016 1:29 [...] (promyelocytes, myelocytes, metamyelocytes) Specimen Performing Laboratory Blood [facility] DEPARTMENT OF PATHOLOGY AND GENOMIC MEDICINE [address] [place] [phone] Hemoglobin A1c (10/30/2016 1:29 PM) Component Value [...] type 1 diabetes. Specimen Performing Laboratory Blood [facility] DEPARTMENT OF PATHOLOGY AND [facility] [address] [place] [phone] Comprehensive metabolic panel (10/30/2016 1:29 PM) Component [...] Protein 6.9 6.3 - 8.3 g/dL Comment: [place] 4.6-7.0 g/dL 1 week 4.4-7.6 g/dL 7 months-1year5.1-7.3 g/dL 1-2 years5.6-7.5 g/dL >3 years6.0-8.0 g/dL 18-150 6.3-8.3 g/dL Albumin 3.2 (L) 3.5 - 5.0 g/dL A/G ratio 0.9 0.7 - 3.8 Alkaline phosphatase 119 (H) 35 - 104 U/L AST 18 10 - 35 U/L ALT 14 5 - 50 U/L Total bilirubin 0.4 0.0 - 1.2 mg/dL Specimen Performing Laboratory Plasma specimen [facility] DEPARTMENT OF PATHOLOGY AND GENOMIC MEDICINE [address] [place] [address] after 07/02/2016 Insurance Payer Benefit Plan / Group Subscriber ID Type Phone Address MEDICARE MEDICARE PART A AND B xxxxxxxxxx Medicare [place], [place] [phone] [address]
--- NOTE | 2017-07-03 11:06 | RAD REPORT ---
EXAM DESCRIPTION: CT - Head Brain Wo Cont - 07/03/2017 10:50 am CLINICAL HISTORY: Fall, head injury COMPARISON: 05/16/2016 TECHNIQUE: All CT scans are performed using dose optimization technique as appropriate and may inclu de automated exposure control or mA/KV adjustment according to patient size. FINDINGS: No intracranial hemorrhage, hydrocephalus or extra-axial fluid collection.Generalized brai n atrophy is present, moderate in severity.No areas of brain edema or evidence of midline shift. The paranasal sinuses and mastoids are clear. The calvarium is intact. Vertebral arteries are calcifi ed. IMPRESSION: No acute intracranial abnormality.
--- NOTE | 2017-07-03 11:11 | ER ---
Nurse's Notes [facility] Name: Dianelys Carroll Age: 82 yrs Sex: Female : 1935 Arrival Date: 07/03/2017 Time: 09:52 Bed 26 Private MD: Arslan Lema Diagnosis: Fall;Superficial injury of head Presentation: 07/03 10:02 Presenting complaint: Patient states: "i fell last night, hit my head on the window tw2 seal and fell again this morning, the boot i have for the wound on my foot made me slip and fall" has been off blood thinners (warfarin) for 5 days now. Transition of care: patient was not received from another setting of care. Onset of symptoms was July 03, 2017. Care prior to arrival: None. 10:02 Method Of Arrival: Wheelchair tw2 10:02 Acuity: EFRAÍN 3 tw2 Triage Assessment: 10:05 General: Appears in no apparent distress. well groomed, Behavior is calm, cooperative, tw2 appropriate for age. Pain: Complains of pain in left parietal area and right parietal area Pain currently is 6 out of 10 on a pain scale. Historical: - Allergies: 10:04 clopidogrel bisulfate; tw2 10:04 Codeine; tw2 10:04 Demerol; tw2 10:04 enalapril maleate; tw2 10:04 enalaprilat dihydrate; tw2 10:04 hydrocodone bitartrate; tw2 10:04 OPIATES; tw2 10:04 propoxyphene napsylate; tw2 10:04 Ramipril; tw2 10:04 Simvastatin; tw2 10:04 Ibuprofen; tw2 - Home Meds: 10:04 carvedilol 12.5 mg Oral tab 1 tab 2 times per day [Active]; citalopram oral 30mg once tw2 daily [Active]; gabapentin 300 mg Oral cap 1 cap 3 times per day [Active]; insulin [Active]; Lipitor 40 mg Oral tab 1 tab once daily [Active]; lisinopril 20 mg Oral tab 1 tab once daily [Active]; Seroquel 50 mg Oral tab 1 tab 2 times per day [Active]; - PMHx: 10:04 Diabetes - IDDM; ESRD; Pacemaker; Dialysis; tw2 - PSHx: 10:04 dialysis graft to left arm; Bladder suspension; Carpal Tunnel Repair; Kidney stents; tw2 cataract surgery; Hysterectomy; - Immunization history:: Adult Immunizations up to date. - Social history:: Smoking status: Patient/guardian denies using tobacco. - Family history:: not pertinent. - Hospitalizations: : No recent hospitalization is reported. Screenin:32 Abuse screen: Denies threats or abuse. Denies injuries from another. Nutritional aj1 screening: No deficits noted. Tuberculosis screening: No symptoms or risk factors identified. 11:49 Fall Risk None identified. aj1 Assessment: 10:32 General: Appears in no apparent distress. comfortable, Behavior is calm, cooperative, aj1 appropriate for age. Pain: Complains of pain in right parietal area and left parietal area Pain does not radiate. Pain currently is 6 out of 10 on a pain scale. Quality of pain is described as aching. Neuro: Level of Consciousness is awake, alert, obeys commands, Oriented to person, place, time, situation, Non Destructive Evaluation Manager are equal bilaterally Moves all extremities. Weakness in left leg(s) Speech is normal, Facial symmetry appears normal, Pupils are PERRLA, Reports dizziness, nausea, patient was given Phenergan in dialysis which has relieved her nausea. Cardiovascular: Denies chest pain, Heart tones S1 S2 present Patient's skin is warm and dry. Rhythm is regular. Respiratory: Airway is patent Respiratory effort is even, unlabored, Respiratory pattern is regular, symmetrical, Breath sounds are clear bilaterally. GI: No signs and/or symptoms were reported involving the gastrointestinal system. : No signs and/or symptoms were reported regarding the genitourinary system. EENT: No signs and/or symptoms were reported regarding the EENT system. Derm: No signs and/or symptoms reported regarding the dermatologic system. Skin is pink, warm \\T\\ dry. normal. Musculoskeletal: No signs and/or symptoms reported regarding the musculoskeletal system. Circulation, motion, and sensation intact. 11:48 Reassessment: Patient appears in no apparent distress at this time. No changes from aj1 previously documented assessment. Patient and/or family updated on plan of care and expected duration. Pain level reassessed. Patient is alert, oriented x 3, equal unlabored respirations, skin warm/dry/pink. Vital Signs: 10:05 BP 135 / 63; Pulse 82; Resp 16; Temp 98.7(O); Pulse Ox 100% on R/A; Weight 66 kg (R); tw2 Height 5 ft. 3 in. (160.02 cm) (R); Pain 6/10; 11:47 BP 158 / 58; Pulse 67; Resp 19; Pulse Ox 100% on R/A; hb 10:05 Body Mass Index 25.77 (66.00 kg, 160.02 cm) tw2 ED Course: 09:52 Patient arrived in ED. mr 09:53 Arslan Lema MD is Private Physician. mr 10:03 Triage completed. tw2 10:06 Arm band placed on. tw2 10:20 Pam Beltran, RN is Primary Nurse. aj1 10:27 Pop Howard MD is Attending Physician. rn 10:32 Patient has correct armband on for positive identification. Bed in low position. Call aj1 light in reach. Side rails up X 1. compliance monitor on. Pulse ox on. NIBP on. 10:32 No provider procedures requiring assistance completed. aj1 10:49 CT completed. Patient tolerated procedure well. Patient moved to CT via stretcher. Patient moved back from CT. 10:49 CT Head Brain wo Cont In Process Unspecified. EDMS 11:10 Arslan Lema MD is Referral Physician. rn 11:49 Patient did not have IV access during this emergency room visit. aj1 Administered Medications: No medications were administered Outcome: 11:11 Discharge ordered by . rn 11:47 Discharged to home via wheelchair, with family. hb 11:47 Condition: stable 11:47 Discharge instructions given to patient, Instructed on discharge instructions, follow up and referral plans. Demonstrated understanding of instructions, follow-up care. 11:48 Patient left the ED. hb Signatures: Dispatcher [employer] EDAL Pam Beltran, RN RN aj1 ReadGrace Magalys Sorto Pop Howard MD MD rn Baxter, Heather, RN RN hb Wise, Tara, RN RN tw2
--- NOTE | 2017-07-03 11:11 | EDPHYS ---
Physician Documentation [facility] Name: Dianelys Carroll Age: 82 yrs Sex: Female : 1935 Arrival Date: 07/03/2017 Time: 09:52 Bed 26 Private MD: Arslan Lema ED Physician Pop Howard HPI: 07/03 11:08 This 82 yrs old Female presents to ER via Wheelchair with complaints of Fall rn Injury. 11:08 Details of fall: The patient fell from an upright position, while walking. Onset: The rn symptoms/episode began/occurred last night. Associated injuries: The patient sustained injury to the head. Severity of symptoms: At their worst the symptoms were very mild, in the emergency department the symptoms are unchanged. The patient has experienced similar episodes in the past. The patient has not recently seen a physician. Fall, hit back of head last night and this AM, tripped over her boot, no LOC, off her coumadin for 5 days. . Historical: - Allergies: 10:04 clopidogrel bisulfate; tw2 10:04 Codeine; tw2 10:04 Demerol; tw2 10:04 enalapril maleate; tw2 10:04 enalaprilat dihydrate; tw2 10:04 hydrocodone bitartrate; tw2 10:04 OPIATES; tw2 10:04 propoxyphene napsylate; tw2 10:04 Ramipril; tw2 10:04 Simvastatin; tw2 10:04 Ibuprofen; tw2 - Home Meds: 10:04 carvedilol 12.5 mg Oral tab 1 tab 2 times per day [Active]; citalopram oral 30mg once tw2 daily [Active]; gabapentin 300 mg Oral cap 1 cap 3 times per day [Active]; insulin [Active]; Lipitor 40 mg Oral tab 1 tab once daily [Active]; lisinopril 20 mg Oral tab 1 tab once daily [Active]; Seroquel 50 mg Oral tab 1 tab 2 times per day [Active]; - PMHx: 10:04 Diabetes - IDDM; ESRD; Pacemaker; Dialysis; tw2 - PSHx: 10:04 dialysis graft to left arm; Bladder suspension; Carpal Tunnel Repair; Kidney stents; tw2 cataract surgery; Hysterectomy; - Immunization history:: Adult Immunizations up to date. - Social history:: Smoking status: Patient/guardian denies using tobacco. - Family history:: not pertinent. - Hospitalizations: : No recent hospitalization is reported. ROS: 11:08 Constitutional: Negative for fever, chills, and weight loss, Eyes: Negative for injury, rn pain, redness, and discharge, Neck: Negative for injury, pain, and swelling, Cardiovascular: Negative for chest pain, palpitations, and edema, Respiratory: Negative for shortness of breath, cough, wheezing, and pleuritic chest pain, Abdomen/GI: Negative for abdominal pain, nausea, vomiting, diarrhea, and constipation, Back: Negative for injury and pain, MS/Extremity: Negative for injury and deformity, Skin: Negative for injury, rash, and discoloration, Neuro: Negative for headache, weakness, numbness, tingling, and seizure. Exam: 11:08 Constitutional: This is a well developed, well nourished patient who is awake, alert, rn and in no acute distress. Head/Face: Normocephalic, atraumatic. Eyes: Pupils equal round and reactive to light, extra-ocular motions intact. Lids and lashes normal. Conjunctiva and sclera are non-icteric and not injected. Cornea within normal limits. Periorbital areas with no swelling, redness, or edema. Neck: Trachea midline, no thyromegaly or masses palpated, and no cervical lymphadenopathy. Supple, full range of motion without nuchal rigidity, or vertebral point tenderness. No Meningismus. Cardiovascular: Regular rate and rhythm with a normal S1 and S2. No gallops, murmurs, or rubs. Normal PMI, no JVD. No pulse deficits. Respiratory: Lungs have equal breath sounds bilaterally, clear to auscultation and percussion. No rales, rhonchi or wheezes noted. No increased work of breathing, no retractions or nasal flaring. MS/ Extremity: Pulses equal, no cyanosis. Neurovascular intact. Full, normal range of motion. Equal circumference. Neuro: Awake and alert, GCS 15, oriented to person, place, time, and situation. Cranial nerves II-XII grossly intact. Motor strength 5/5 in all extremities. Sensory grossly intact. Cerebellar exam normal. Normal gait. Vital Signs: 10:05 BP 135 / 63; Pulse 82; Resp 16; Temp 98.7(O); Pulse Ox 100% on R/A; Weight 66 kg (R); tw2 Height 5 ft. 3 in. (160.02 cm) (R); Pain 6/10; 11:47 BP 158 / 58; Pulse 67; Resp 19; Pulse Ox 100% on R/A; hb 10:05 Body Mass Index 25.77 (66.00 kg, 160.02 cm) tw2 MDM: 10:27 Patient medically screened. rn 11:08 Differential diagnosis: closed head injury, contusion. Data reviewed: vital signs, rn nurses notes, radiologic studies, CT scan, and as a result, I will discharge patient. Counseling: I had a detailed discussion with the patient and/or guardian regarding: the historical points, exam findings, and any diagnostic results supporting the discharge/admit diagnosis, radiology results, the need for outpatient follow up, to return to the emergency department if symptoms worsen or persist or if there are any questions or concerns that arise at home. Special discussion: Based on the patient's history, exam and DX evaluation, there is no indication for emergent intervention or inpatient [place]. It is understood by the patient/guardian that if the SXs persist or worsen they need to return immediately for re-evaluation. I discussed with the patient/guardian in detail that at this point there is no indication for admission to the hospital. It is understood, however, that if the symptoms persist or worsen the patient needs to return immediately for re-evaluation. 07/03 10:33 Order name: CT Head Brain wo Cont; Complete Time: 11:08 rn Administered Medications: No medications were administered Disposition: 07/03/17 11:11 Discharged to Home. Impression: Fall, Superficial injury of head. - Condition is Stable. - Discharge Instructions: Head Injury, Adult. - Medication Reconciliation Form, Thank You Letter, Antibiotic Education, Prescription Opioid Use form. - Follow up: Arslan Lema MD; When: As needed; Reason: Recheck today's complaints, Re-evaluation by your physician. - Problem is new. - Symptoms have improved. Signatures: Dispatcher [employer] EDMS Pop Howard MD MD rn Baxter, Heather, RN RN hb Wise, Tara, RN RN tw2
[2017-07-03 11:52] VITALS: TEMP 98.7; O2SAT 100
[2017-07-03 11:53] VITALS: BP 158/58
== END 2017-07-03 11:48 | disposition home or self-care (01) ==
LOC: ER 09:51
DX: S00.90XA Unspecified superficial injury of unspecified part of head, initial encounter (principal); E11.9 Type 2 diabetes mellitus without complications; W01.0XXA Fall on same level from slipping, tripping and stumbling without subsequent striking against object, initial encounter; Y93.9 Activity, unspecified; Y92.009 Unspecified place in unspecified non-institutional (private) residence as the place of occurrence of the external cause; Z88.6 Allergy status to analgesic agent; Z88.1 Allergy status to other antibiotic agents
CPT/HCPCS: 70450; 99284

== ENCOUNTER 2017-10-16 08:14 | Observation (INO) | payer OTHER ==
--- OUTSIDE RECORDS SUMMARY | 2017-10-16 08:16 | XMS REPORT | Clinical Summary ---
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 after 10/15/2016 Social History Tobacco Use Types Packs/Day Years [...] Health Maintenance Due Date Last Done Comments SHINGRIX VACCINE (#1) 1986 ZOSTER VACCINE 1996 PNEUMOCOCCAL POLYSACCHARIDE VACCINE AGE 65 AND OVER 2001 PNEUMOCOCCAL-13 2001 INFLUENZA VACCINE 10/24/2017 Implants Implanted Type Area Equipment Processer Storage Device Expiration Model / Identifier Date Serial / Lot Graft Vasclr Acuseal 40cm 6mm - [id number] - [id number] Vascular N/A: N/A [employer] 05/19/2019 [id number] / Implanted: Qty: 1 on 11/08/2016 by Herman Fraga MD Graft [id number] / [id number] Procedures Procedure Name Priority Date/Time Associated Comments Diagnosis POC GLUCOSE Routine 11/08/2016 12:58 Results for this PM CDT procedure are in the results section. LA AN ELECTIVE Routine 11/08/2016 11:06 SUPRAGLOTTIC AIRWAY AM CDT Procedure Note - Gene Coffman MD - 11/08/2016 11:05 AM CDT Airway Performed by: GENE OCFFMAN Authorized by: GENE COFFMAN Location: OR Urgency: Elective Difficult Airway: No Preoxygenated with 100% O2: No C-spine Precautions Maintained Throughout: No Mask Ventilation: Assisted mask Final Airway Type: Supraglottic airway Final LMA: Classic LMA Size: 4 Number of Attempts at Approach: 1 THROMBECTOMY, AV GRAFT, 11/08/2016 10:30 AM End stage renal WITH REVISION CDT disease PARTIAL THROMBOPLASTIN STAT 11/08/2016 9:50 AM Results for this TIME (PTT) CDT procedure are in the results section. PROTHROMBIN TIME WITH STAT 11/08/2016 9:50 AM Results for this INR CDT procedure are in the results section. HEMOGLOBIN, SYRINGE STAT 11/08/2016 9:50 AM Results for this CDT procedure are in the results section. POTASSIUM, SYRINGE STAT 11/08/2016 9:50 AM Results for this CDT procedure are in the results section. GLUCOSE LEVEL, SYRINGE STAT 11/08/2016 9:50 AM Results for this CDT procedure are in the results section. POC GLUCOSE Routine 11/08/2016 9:40 AM Results for this CDT procedure are in the results section. ECG PRE/POST OP Routine 10/30/2016 1:45 PM Preop testing Results for this CDT procedure are in the results section. ESTIMATED GFR Routine 10/30/2016 1:29 PM Results for this CDT procedure are in the results section. HEMOGLOBIN A1C Routine 10/30/2016 1:29 PM Preop testing Results for this CDT procedure are in the results section. PARTIAL THROMBOPLASTIN Routine 10/30/2016 1:29 PM Preop testing Results for this TIME (PTT) CDT procedure are in the results section. PROTHROMBIN TIME WITH Routine 10/30/2016 1:29 PM Preop testing Results for this INR CDT procedure are in the results section. COMPREHENSIVE METABOLIC Routine 10/30/2016 1:29 PM Preop testing Results for this PANEL CDT procedure are in the results section. HC COMPLETE BLD COUNT Routine 10/30/2016 1:29 PM Preop testing Results for this W/AUTO DIFF CDT procedure are in the results section. after 10/15/2016 Results POC glucose (11/08/2016 12:58 PM)Only the most recent of2 resultswithin the time period is included. POC glucose 85 65 - 99 mg/dL [facility] DEPARTMENT OF PATHOLOGY AND Comment: GENOMIC MEDICINE Meter ID: [id number] Block Cableman: Beni Lowry Performing Organization Address City/State/Zipcode Phone Number [facility] DEPARTMENT OF PATHOLOGY AND [address] [place] [address] [employer] [facility] Potassium, syringe (11/08/2016 9:50 AM) Potassium, syringe 3.7 3.5 - 5.0 mEq/L [facility] DEPARTMENT OF PATHOLOGY AND GENOMIC MEDICINE Specimen Blood Performing Organization Address [facility] Phone Number [facility] DEPARTMENT OF PATHOLOGY AND [address] [place] [address] Hemoglobin, syringe (11/08/2016 9:50 AM) Hemoglobin, syringe 10.2 (L) 12.0 - 16.0 g/dL [facility] DEPARTMENT OF PATHOLOGY AND GENOMIC MEDICINE Specimen Blood Performing Organization Address [facility] Phone Number [facility] DEPARTMENT OF PATHOLOGY AND [address] [place] [address] Glucose level, syringe (11/08/2016 9:50 AM) Glucose, syringe 99 65 - 99 mg/dL [facility] DEPARTMENT OF PATHOLOGY AND GENOMIC MEDICINE Specimen Blood Performing Organization Address [facility] Number [facility] DEPARTMENT OF PATHOLOGY AND [address] [place] [address] Partial thromboplastin time, activated (11/08/2016 9:50 AM)Only the most recent of2 resultswithin the time period is included. PTT 37.3 (H) 23.0 - 36.0 sec [facility] DEPARTMENT OF PATHOLOGY Comment: AND [facility] PTT therapeutic range for unfractionated heparin is 61.0-112.0 seconds which corresponds to Anti-Xa 0.3-0.7 U/ml. Specimen Blood Performing Organization Address [facility] Phone Number [facility] DEPARTMENT OF PATHOLOGY AND [address] [place] [address] Prothrombin time with INR (11/08/2016 9:50 AM)Only the most recent of2 resultswithin the time period is included. Prothrombin time 15.4 (H) 12.0 - 15.0 sec [facility] DEPARTMENT OF PATHOLOGY AND GENOMIC MEDICINE INR 1.2 [facility] DEPARTMENT OF Comment: PATHOLOGY AND GENOMIC The International Normalized Ratio (INR) is a therapeutic MEDICINE monitoring tool for patients who are stable on oral anticoagulant therapy. An INR of 2.0-3.0 is suggested for deep vein thrombosis/pulmonary embolism. Specimen Blood Performing Organization Address [facility] Phone Number [facility] DEPARTMENT OF PATHOLOGY AND [address] [place] [address] MEDICINE ECG Pre/Post Op (10/30/2016 1:45 PM) Ventricular rate 66 [facility] Atrial rate 66 [facility] QRSD interval 84 [facility] QT interval 442 [facility] QTC interval 463 [facility] QRS axis 1 56 [facility] T wave axis 112 [facility] EKG impression Electronic atrial pacemaker-Low voltage [facility] QRS-Cannot rule out Anterior infarct , age undetermined-Abnormal ECG- Performing Organization Address [facility] Phone Number [facility] MUSE [address] [place] [address] Estimated GFR (10/30/2016 1:29 PM) GFR Non Af Amer 6 (A) mL/min/1.73 m2 [facility] DEPARTMENT OF PATHOLOGY AND GENOMIC MEDICINE GFR Af Amer 7 (A) mL/min/1.73 m2 [facility] DEPARTMENT OF Comment: PATHOLOGY AND GENOMIC Chronic kidney disease: <60 mL/min/1.73m2 MEDICINE Kidney failure: <15 mL/min/1.73m2 The estimated GFR is calculated from the IDMS-traceable Modification of Diet in Renal Disease Equation. The accuracy of the calculation is poor when the creatinine is normal. Calculated values >90 mL/min/1.73m2 are not reported. This equation has not been validated in children (<18 years), women, the elderly (>70 years), or ethnic groups other than Caucasians and Americans. Specimen Plasma specimen Performing Organization Address City/[facility] Phone Number [facility] DEPARTMENT OF PATHOLOGY AND [address] [place], [place] [id number] [facility] CBC with platelet and differential (10/30/2016 1:29 PM) WBC 7.17 4.50 - 11.00 k/uL [facility] DEPARTMENT OF PATHOLOGY AND GENOMIC MEDICINE RBC 3.32 (L) 4.20 - 5.50 m/uL [facility] DEPARTMENT OF PATHOLOGY AND GENOMIC MEDICINE HGB 10.1 (L) 12.0 - 16.0 g/dL [facility] DEPARTMENT OF PATHOLOGY AND GENOMIC MEDICINE HCT 33.1 (L) 37.0 - 47.0 % [facility] DEPARTMENT OF PATHOLOGY AND GENOMIC MEDICINE MCV 99.7 82.0 - 100.0 fL [facility] DEPARTMENT OF PATHOLOGY AND GENOMIC MEDICINE MCH 30.4 27.0 - 34.0 pg [facility] DEPARTMENT OF PATHOLOGY AND GENOMIC MEDICINE MCHC 30.5 (L) 31.0 - 37.0 g/dL [facility] DEPARTMENT OF PATHOLOGY AND GENOMIC MEDICINE RDW - SD 51.8 37.0 - 55.0 fL [facility] DEPARTMENT OF PATHOLOGY AND GENOMIC MEDICINE MPV 10.2 8.8 - 13.2 fL [facility] DEPARTMENT OF PATHOLOGY AND GENOMIC MEDICINE Platelet count 278 150 - 400 k/uL [facility] DEPARTMENT OF PATHOLOGY AND GENOMIC MEDICINE Nucleated RBC 0.00 /100 WBC [facility] DEPARTMENT OF PATHOLOGY AND GENOMIC MEDICINE Neutrophils 71.1 (H) 39.0 - 69.0 % [facility] DEPARTMENT OF PATHOLOGY AND GENOMIC MEDICINE Lymphocytes 14.4 (L) 25.0 - 45.0 % [facility] DEPARTMENT OF PATHOLOGY AND GENOMIC MEDICINE Monocytes 9.1 0.0 - 10.0 % [facility] DEPARTMENT OF PATHOLOGY AND GENOMIC MEDICINE Eosinophils 4.2 0.0 - 5.0 % [facility] DEPARTMENT OF PATHOLOGY AND GENOMIC MEDICINE Basophils 0.4 0.0 - 1.0 % [facility] DEPARTMENT OF PATHOLOGY AND GENOMIC MEDICINE Immature granulocytes 0.8Comment: 0.0 - 1.0 % [facility] DEPARTMENT OF "Immature PATHOLOGY AND GENOMIC granulocytes" MEDICINE (promyelocytes, myelocytes, metamyelocytes) Specimen Blood Performing Organization Address City/State/Zipcode Phone Number [facility] DEPARTMENT OF PATHOLOGY AND [address] [place] [address] Hemoglobin A1c (10/30/2016 1:29 PM) Hemoglobin A1C 6.5 (H) 4.0 - 5.6 % [facility] DEPARTMENT OF PATHOLOGY Comment: AND GENOMIC MEDICINE HbA1c cutoffs for diagnosing diabetes: 4.0% - 5.6%=normal 5.7% - 6.4%=increased risk for diabetes (prediabetes) >=6.5%=diabetes Goals for glycemic control (ADA 2016) < 7.0%Target for non adults with diabetes. More or less stringent targets may be appropriate for individual patients. <7.5% Target for Children and adolescents with type 1 diabetes. Specimen Blood Performing Organization Address City/State/Zipcode Phone Number [facility] DEPARTMENT OF PATHOLOGY AND [address] [place] [phone] [facility] Comprehensive metabolic panel (10/30/2016 1:29 PM) Sodium 135 135 - 148 mEq/L [facility] DEPARTMENT OF PATHOLOGY AND GENOMIC MEDICINE Potassium 4.7 3.5 - 5.0 mEq/L [facility] DEPARTMENT OF PATHOLOGY AND GENOMIC MEDICINE Chloride 94 (L) 98 - 112 mEq/L [facility] DEPARTMENT OF PATHOLOGY AND GENOMIC MEDICINE CO2 26 24 - 31 mEq/L [facility] DEPARTMENT OF PATHOLOGY AND GENOMIC MEDICINE Anion gap 15 7 - 15 mEq/L [facility] DEPARTMENT OF Comment: PATHOLOGY AND GENOMIC Starting from June , anion gap calculation MEDICINE no longer incorporates potassium. Please note the change. BUN 30 (H) 8 - 23 mg/dL [facility] DEPARTMENT OF PATHOLOGY AND GENOMIC MEDICINE Creatinine 6.6 (H) 0.5 - 0.9 mg/dL [facility] DEPARTMENT OF PATHOLOGY AND GENOMIC MEDICINE Glucose 104 (H) 65 - 99 mg/dL [facility] DEPARTMENT OF PATHOLOGY AND GENOMIC MEDICINE Calcium 9.6 8.8 - 10.2 mg/dL [facility] DEPARTMENT OF PATHOLOGY AND GENOMIC MEDICINE Protein 6.9 6.3 - 8.3 g/dL [facility] DEPARTMENT OF Comment: PATHOLOGY AND GENOMIC 4.6-7.0 g/dL MEDICINE 1 week 4.4-7.6 g/dL 7 months-1year5.1-7.3 g/dL 1-2 years5.6-7.5 g/dL >3 years6.0-8.0 g/dL 18-150 6.3-8.3 g/dL Albumin 3.2 (L) 3.5 - 5.0 g/dL [facility] DEPARTMENT OF PATHOLOGY AND GENOMIC MEDICINE A/G ratio 0.9 0.7 - 3.8 [facility] DEPARTMENT OF PATHOLOGY AND GENOMIC MEDICINE Alkaline phosphatase 119 (H) 35 - 104 U/L [facility] DEPARTMENT OF PATHOLOGY AND GENOMIC MEDICINE AST 18 10 - 35 U/L [facility] DEPARTMENT OF PATHOLOGY AND GENOMIC MEDICINE ALT 14 5 - 50 U/L [facility] DEPARTMENT OF PATHOLOGY AND GENOMIC MEDICINE Total bilirubin 0.4 0.0 - 1.2 mg/dL [facility] DEPARTMENT OF PATHOLOGY AND GENOMIC MEDICINE Specimen Plasma specimen Performing Organization Address City/State/Zipcode Phone Number [facility] DEPARTMENT OF PATHOLOGY AND [address] [place] [address] GENOMIC [facility] after 10/15/2016 Insurance Payer Benefit Plan / Group Subscriber ID Type Phone Address MEDICARE MEDICARE PART A AND B xxxxxxxxxx Medicare [place], [place] Home: [address] [facility] [phone] [address]
[2017-10-16 08:55] LABS: Absolute Monocytes 0.5 K/uL (0.1-1.3); Absolute Neutrophil 8.1 K/uL (1.8-8.0); Basophils % 0.6 % (0-1.3); Eosinophils % 3.3 % (0-4.4); Hematocrit 34.9 % (36.0-45.0); MCH 30.7 pg (27.0-35.0); MCV 92.4 fL (80-100); MPV 8.8 fL (7.6-11.3); RBC Red Blood Cell Count 3.78 M/uL (3.86-4.86)
[2017-10-16 08:58] LABS: Protime INR 0.99
--- NOTE | 2017-10-16 09:14 | RAD REPORT ---
EXAM DESCRIPTION: Adam Single View10/16/2017 8:34 am CLINICAL HISTORY: Chest pain COMPARISON: June 2017 FINDINGS: Mild bilateral interstitial lung opacities are suspected. The heart is mildly enlarged. Pa cemaker leads are in place. IMPRESSION: Mild CHF
--- NOTE | 2017-10-16 10:02 | ER ---
Nurse's Notes [facility] Name: Dianelys Carroll Age: 82 yrs Sex: Female : 1935 Arrival Date: 10/16/2017 Time: 08:15 Bed 2 Private MD: Arslan Lema Diagnosis: Chest pain, unspecified;End stage renal disease Presentation: 10/16 08:10 Presenting complaint: EMS states: Pt was receiving dialysis and had about 0.8 L removed sv and pt started c/o midsternal chest pressure with no radiation. Pain 10/10. BP 224/100 96% RA. Nitro x 2 and ASA 324 mg PO given BP 179/98. c/o SOB. Transition of care: Dialysis center. Onset of symptoms was October 16, 2017. Risk Assessment: Do you want to hurt yourself or someone else? Patient reports no desire to harm self or others. Initial Sepsis Screen: Does the patient meet any 2 criteria? No. Patient's initial sepsis screen is negative. Does the patient have a suspected source of infection? No. Patient's initial sepsis screen is negative. Care prior to arrival: Medication(s) given: ASA, 81 mg, x 4, Nitroglycerin, 0.4 mg SL x 2. 08:10 Method Of Arrival: EMS: [facility] sv 08:10 Acuity: EFRAÍN 3 sv Triage Assessment: 08:10 General: Appears in no apparent distress. comfortable, Behavior is calm, cooperative, sv appropriate for age. Pain: Complains of pain in mid-sternal area Pain does not radiate. Pain currently is 6 out of 10 on a pain scale. Quality of pain is described as pressure, Pain began 30 min ago. Is intermittent. EENT: No signs and/or symptoms were reported regarding the EENT system. Neuro: Level of Consciousness is awake, alert, obeys commands, Oriented to person, place, time, situation, Moves all extremities. Full function Gait is steady. Cardiovascular: Patient's skin is warm and dry. Respiratory: Reports shortness of breath at rest Respiratory effort is even, unlabored, Respiratory pattern is regular, symmetrical. Derm: Skin is pink, warm \\T\\ dry. Musculoskeletal: Range of motion: intact in all extremities. Historical: - Allergies: 08:20 clopidogrel bisulfate; sv 08:20 Codeine; sv 08:20 Demerol; sv 08:20 enalapril maleate; sv 08:20 enalaprilat dihydrate; sv 08:20 hydrocodone bitartrate; sv 08:20 Ibuprofen; sv 08:20 OPIATES; sv 08:20 propoxyphene napsylate; sv 08:20 Ramipril; sv 08:20 Simvastatin; sv 08:44 Vioxx; sv 08:44 altase; sv - Home Meds: 08:26 Lipitor 40 mg Oral tab 1 tab once daily [Active]; lisinopril 20 mg Oral tab 1 tab once tw2 daily [Active]; 08:44 carvedilol 6.25 mg oral tab 2 times per day [Active]; citalopram 20 mg oral tab once sv daily [Active]; gabapentin 300 mg Oral cap 1 cap nightly [Active]; Seroquel 50 mg Oral tab 1 tab daily [Active]; aspirin 81 mg Oral TbEC 1 tab once daily [Active]; novolin SS [Active]; PhosLo 667 mg Oral cap 3 caps 3 times per day [Active]; renavite 1 tab after HD [Active]; warfarin 5 mg Oral tab 1 tab once daily [Active]; - PMHx: 08:20 Diabetes - IDDM; Dialysis; ESRD; Pacemaker; sv 08:44 Anemia; hypercalcemia; hyperkalemia; hyperglycemia; High Cholesterol; sv hyperparathyroidism; - PSHx: 08:20 dialysis graft to left arm; Bladder suspension; Carpal Tunnel Repair; Kidney stents; sv cataract surgery; Hysterectomy; - Immunization history:: Adult Immunizations up to date. - Ebola Screening: : No symptoms or risks identified at this time. - Family history:: not pertinent. - Social history:: Smoking status: Patient/guardian denies using tobacco. - Hospitalizations: : No recent hospitalization is reported. Screenin:21 Abuse screen: Denies threats or abuse. Denies injuries from another. Nutritional sv screening: No deficits noted. Tuberculosis screening: No symptoms or risk factors identified. Fall Risk None identified. Assessment: 09:00 Reassessment: see triage assessment. tw2 09:28 Reassessment: Patient appears in no apparent distress at this time. Patient and/or tw2 family updated on plan of care and expected duration. Pain level reassessed. Patient is alert, oriented x 3, equal unlabored respirations, skin warm/dry/pink. 09:28 Reassessment: pt states "the pain is better". tw2 10:30 Reassessment: Patient appears in no apparent distress at this time. Patient and/or tw2 family updated on plan of care and expected duration. Pain level reassessed. Patient is alert, oriented x 3, equal unlabored respirations, skin warm/dry/pink. 11:58 Reassessment: Patient appears in no apparent distress at this time. Patient and/or tw2 family updated on plan of care and expected duration. Pain level reassessed. Patient is alert, oriented x 3, equal unlabored respirations, skin warm/dry/pink. 12:24 Reassessment: Patient appears in no apparent distress at this time. Patient and/or tw2 family updated on plan of care and expected duration. Pain level reassessed. Patient is alert, oriented x 3, equal unlabored respirations, skin warm/dry/pink. Vital Signs: 08:20 BP 144 / 61; Pulse 79; Resp 14; Temp 97.8(O); Pulse Ox 96% on 2 lpm NC; sv 09:26 BP 141 / 65; Pulse 72; Resp 18; Pulse Ox 95% on 2 lpm NC; sv 10:29 BP 151 / 63; Pulse 71; Resp 18; Pulse Ox 98% on 2 lpm NC; sv 11:00 BP 169 / 64; Pulse 68; Resp 17; Pulse Ox 96% on 2 lpm NC; tw2 11:57 BP 150 / 68; Pulse 68; Resp 19; Pulse Ox 98% on 2 lpm NC; tw2 ED Course: 08:10 Oxygen administration via nasal cannula \\T\\ 2L/min. sv 08:15 Patient arrived in ED. sv 08:16 Lorrie Shukla, RN is Primary Nurse. sv 08:16 Pop Howard MD is Attending Physician. rn 08:19 Triage completed. sv 08:21 Arm band placed on left wrist. sv 08:21 Patient has correct armband on for positive identification. Placed in gown. Bed in low sv position. Call light in reach. Side rails up X2. classroom monitor on. Pulse ox on. NIBP on. Door closed. Warm blanket given. Head of bed elevated. 08:24 Missed attempt(s): 22 gauge in right wrist. Bleeding controlled, band aid applied, tw2 catheter tip intact. Missed attempt(s): 22 gauge in right forearm. Bleeding controlled, band aid applied, catheter tip intact. 08:27 X-ray(s) taken. sv 08:32 X-ray completed. Portable x-ray completed in exam room. Patient tolerated procedure jb2 well. 08:32 XRAY Chest (1 view) In Process Unspecified. EDMS 08:44 Initial lab(s) drawn, by me, sent to lab. Inserted saline lock: 22 gauge in right em1 forearm, using aseptic technique. Blood collected. 09:17 EKG done, by battery service technician. reviewed by Pop Howard MD. at1 09:45 Arslan Lema MD is Private Physician. as 10:00 Arslan Lema MD is Hospitalizing Provider. rn 12:02 attempted to call report, was told this nurse is getting all the pts from ER per tw2 JOSE Beltran and I can hold or call back, holding at this time. 12:10 Awaiting: still on hold at this time with 2nd floor trying to give report. tw2 12:23 Awaiting: still on HOLD at this time to give report to 2nd floor. tw2 12:24 No provider procedures requiring assistance completed. Patient admitted, IV remains in tw2 place. 12:31 Awaiting: able to call report at this time. tw2 Administered Medications: No medications were administered Point of Care Testing: Blood Glucose: 08:39 Blood Glucose: 137 mg/dL; sv Ranges: Outcome: 10:01 Decision to Hospitalize by Provider. rn 12:29 Admitted to Med/surg accompanied by tech, via stretcher, room 220, with chart, Report tw2 called to JOSE Mercado 12:29 Condition: stable 12:29 Instructed on the need for admit. 12:54 Patient left the ED. tw2 Signatures: Dispatcher [employer] EDMS Lorrie Shukla RN RN sv Buechter, Jesse jb2 Yee Rondon Roman, MD MD rn Martinez, Eric em1 Loretta goodrich, chef EKG Tat1 Adelaida Vazquez RN RN tw2 Corrections: (The following items were deleted from the chart) 08:44 08:26 Home Meds: carvedilol 12.5 mg Oral tab 1 tab 2 times per day; tw2 sv 08:44 08:26 Home Meds: citalopram oral 30mg once daily; 08: Home Meds: gabapentin 300 mg Oral cap 1 cap 3 times per day; 08: Home Meds: insulin; 08: Home Meds: Seroquel 50 mg Oral tab 1 tab 2 times per day;
--- NOTE | 2017-10-16 10:02 | EDPHYS ---
Physician Documentation [facility] Name: Dianelys Carroll Age: 82 yrs Sex: Female : 1935 Arrival Date: 10/16/2017 Time: 08:15 Bed 2 Private MD: Arslan Lema ED Physician Pop Howard HPI: 10/16 08:18 This 82 yrs old Female presents to ER via Unassigned with complaints of Chest rn Pressure. 08:18 The patient or guardian reports chest pain that is located primarily in the substernal rn area. Onset: just prior to arrival. The pain does not radiate. Associated signs and symptoms: Pertinent positives: cough, shortness of breath, Pertinent negatives: abdominal pain, diaphoresis, headache, lightheadedness, palpitations, syncope, vomiting. The chest pain is described as a pressure. Duration: The patient or guardian reports a single episode, that is still ongoing. Severity of pain: At its worst the pain was moderate in the emergency department the pain has improved. The patient has not experienced similar symptoms in the past. Reports chest pain, substernal, no radiation, happened during dialysis, was 10/10, improved to 6/10 after nitro and aspirin.. Historical: - Allergies: 08:20 clopidogrel bisulfate; sv 08:20 Codeine; sv 08:20 Demerol; sv 08:20 enalapril maleate; sv 08:20 enalaprilat dihydrate; sv 08:20 hydrocodone bitartrate; sv 08:20 Ibuprofen; sv 08:20 OPIATES; sv 08:20 propoxyphene napsylate; sv 08:20 Ramipril; sv 08:20 Simvastatin; sv 08:44 Vioxx; sv 08:44 altase; sv - Home Meds: 08:26 Lipitor 40 mg Oral tab 1 tab once daily [Active]; lisinopril 20 mg Oral tab 1 tab once tw2 daily [Active]; 08:44 carvedilol 6.25 mg oral tab 2 times per day [Active]; citalopram 20 mg oral tab once sv daily [Active]; gabapentin 300 mg Oral cap 1 cap nightly [Active]; Seroquel 50 mg Oral tab 1 tab daily [Active]; aspirin 81 mg Oral TbEC 1 tab once daily [Active]; novolin SS [Active]; PhosLo 667 mg Oral cap 3 caps 3 times per day [Active]; renavite 1 tab after HD [Active]; warfarin 5 mg Oral tab 1 tab once daily [Active]; - PMHx: 08:20 Diabetes - IDDM; Dialysis; ESRD; Pacemaker; sv 08:44 Anemia; hypercalcemia; hyperkalemia; hyperglycemia; High Cholesterol; sv hyperparathyroidism; - PSHx: 08:20 dialysis graft to left arm; Bladder suspension; Carpal Tunnel Repair; Kidney stents; sv cataract surgery; Hysterectomy; - Immunization history:: Adult Immunizations up to date. - Ebola Screening: : No symptoms or risks identified at this time. - Family history:: not pertinent. - Social history:: Smoking status: Patient/guardian denies using tobacco. - Hospitalizations: : No recent hospitalization is reported. ROS: 08:18 Constitutional: Negative for fever, chills, and weight loss, Eyes: Negative for injury, rn pain, redness, and discharge, Cardiovascular: + chest pain Respiratory: + sob Abdomen/GI: Negative for abdominal pain, nausea, vomiting, diarrhea, and constipation, Back: Negative for injury and pain, MS/Extremity: Negative for injury and deformity, Neuro: Negative for headache, weakness, numbness, tingling, and seizure. Exam: 08:18 Constitutional: This is a well developed, well nourished patient who is awake, alert, rn and in no acute distress. Head/Face: Normocephalic, atraumatic. Eyes: Pupils equal round and reactive to light, extra-ocular motions intact. Lids and lashes normal. Conjunctiva and sclera are non-icteric and not injected. Cornea within normal limits. Periorbital areas with no swelling, redness, or edema. Cardiovascular: Regular rate and rhythm with a normal S1 and S2. No pulse deficits. Respiratory: + bibasilar crackles, no wheezing Abdomen/GI: Soft, non-tender, with normal bowel sounds. No distension or tympany. No guarding or rebound. No evidence of tenderness throughout. MS/ Extremity: Pulses equal, no cyanosis. Neurovascular intact. Full, normal range of motion. Equal circumference. + thrill LUE dialysis access Neuro: Awake and alert, GCS 15, oriented to person, place, time, and situation. Cranial nerves II-XII grossly intact. Motor strength 5/5 in all extremities. Sensory grossly intact. Vital Signs: 08:20 BP 144 / 61; Pulse 79; Resp 14; Temp 97.8(O); Pulse Ox 96% on 2 lpm NC; sv 09:26 BP 141 / 65; Pulse 72; Resp 18; Pulse Ox 95% on 2 lpm NC; sv 10:29 BP 151 / 63; Pulse 71; Resp 18; Pulse Ox 98% on 2 lpm NC; sv 11:00 BP 169 / 64; Pulse 68; Resp 17; Pulse Ox 96% on 2 lpm NC; tw2 11:57 BP 150 / 68; Pulse 68; Resp 19; Pulse Ox 98% on 2 lpm NC; tw2 MDM: 08:17 Patient medically screened. rn 09:59 Differential diagnosis: abnormal EKG, acute myocardial infarction, acute pericarditis, rn coronary artery disease pleurisy, pneumothorax, stable angina, unstable angina. The patient was not given aspirin in the Emergency Department. Administered by EMS. Data reviewed: vital signs, nurses notes, lab test result(s), EKG, radiologic studies, plain films, and as a result, I will admit patient. Counseling: I had a detailed discussion with the patient and/or guardian regarding: the historical points, exam findings, and any diagnostic results supporting the discharge/admit diagnosis, lab results, radiology results, the need for further work-up and treatment in the hospital. Response to treatment: the patient's symptoms have mildly improved after treatment, and as a result, I will admit patient. Admission orders: after a detailed discussion of the patient's condition and case, the admit orders are written by me. ED course: Spoke with Dr. Lema, will admit for cardiac eval, cardiology consult, and renal consult.. 10/16 08:18 Order name: Basic Metabolic Panel; Complete Time: : rn 10/16 08:18 Order name: CBC with Diff; Complete Time: : rn 10/16 08:18 Order name: NT PRO-BNP; Complete Time: 10/16 08:18 Order name: PT-INR; Complete Time: 09:10/16 08:18 Order name: Ptt, Activated; Complete Time: :10/16 08:18 Order name: Troponin (emerg Dept Use Only); Complete Time: 09:21 rn 10/16 08:18 Order name: XRAY Chest (1 view); Complete Time: 09:17 rn 10/16 08:18 Order name: EKG; Complete Time: 08:18 rn 10/16 08:18 Order name: Cardiac monitoring; Complete Time: 08:24 rn 10/16 08:18 Order name: EKG - Nurse/Tech; Complete Time: 10:04 rn 10/16 08:18 Order name: IV Saline Lock; Complete Time: 08:43 rn 10/16 08:56 Order name: Glucose, Ancillary Testing; Complete Time: 09:00 EDMS 10/16 10:12 Order name: Renal Panel 10/16 12:49 Order name: Renal Panel EDWY 10/16 08:18 Order name: Labs collected and sent; Complete Time: 08:44 rn 10/16 08:18 Order name: O2 Per Protocol; Complete Time: 08:25 rn 10/16 08:18 Order name: O2 Sat Monitoring; Complete Time: 08:25 rn 10/16 11:32 Order name: Labs - recollect needed; Complete Time: 12:30 bd Administered Medications: No medications were administered Point of Care Testing: Blood Glucose: 08:39 Blood Glucose: 137 mg/dL; sv Ranges: Critical Glucose Levels:Adult <50 mg/dl or >400 mg/dl <40 mg/dl or >180 mg/dl Disposition: 10/16/17 10:01 Hospitalization ordered by Arslan Lema for Observation. Preliminary diagnosis are Chest pain, unspecified, End stage renal disease. - Bed requested for Telemetry/MedSurg (observation). - Status is Observation. tw2 - Condition is Stable. - Problem is new. - Symptoms have improved. UTI on Admission? No Signatures: Dispatcher [employer] EDMS Nicolasa Blair Stephanie, RN RN sv Woody, Diana, RN RN dw Nieto, Roman, MD MD rn Wise, Tara, RN RN tw2 Corrections: (The following items were deleted from the chart) 08:44 08:26 Home Meds: carvedilol 12.5 mg Oral tab 1 tab 2 times per day; tw2 sv 08:44 08:26 Home Meds: citalopram oral 30mg once daily; tw2 sv 08:44 08:26 Home Meds: gabapentin 300 mg Oral cap 1 cap 3 times per day; tw2 sv 44 08:26 Home Meds: insulin; tw2 sv :44 08:26 Home Meds: Seroquel 50 mg Oral tab 1 tab 2 times per day; tw2 sv 11:27 10:01 Hospitalization Ordered by Arslan Lema MD for Observation. Preliminary dw diagnosis is Chest pain, unspecified; End stage renal disease. Bed requested for Telemetry/MedSurg (observation). Status is Observation. Condition is Stable. Problem is new. Symptoms have improved. UTI on Admission? No. rn 12:54 11:27 10/16/2017 10:01 Hospitalization Ordered by Arslan Lema MD for Observation. tw2 Preliminary diagnosis is Chest pain, unspecified; End stage renal disease. Bed requested for Telemetry/MedSurg (observation). Status is Observation. Condition is Stable. Problem is new. Symptoms have improved. UTI on Admission? No. dw
--- NOTE | 2017-10-16 12:13 | EKG ---
Test Date: 2017-10-16 Test Time: 08:50:43 Superintendent Recreation: KAYLYN MEASUREMENT RESULTS: Intervals: Rate: 73 [place]: 326 QRSD: 172 QT: 516 QTc: 568 [place]: P: [place]: 326 QRS: -79 T: 94 INTERPRETIVE STATEMENTS: Atrial-sensed ventricular-paced rhythm with prolonged AV conduction Abnormal ECG Compared to ECG 06/26/2017 20:52:33 No significant changes Electronically Signed On 10-16-17 12:11:46 CDT by Boris Page
[2017-10-16] MEDS ORDERED: ONDANSETRON 4 MG/2 ML VIAL IV PRN (12:48)
[2017-10-16] MEDS ORDERED: ACETAMINOPHEN 500 MG TAB PO PRN (12:48)
[2017-10-16 12:49] LABS: Albumin 2.9 g/dL (3.4-5.0)
[2017-10-16 13:15] LABS: Potassium 4.1 mmol/L (3.5-5.1)
[2017-10-16 13:23] LABS: Phosphorus 3.7 mg/dL (2.5-4.9)
--- NOTE | 2017-10-17 01:21 | CON ---
Date of Consultation: 10/16/2017 Reason For Consultation: Unstable angina. History Of Present Illness: Ms. Carroll is an 82-year-old white woman. She is known to me for many year s because of history of coronary artery disease status post PCI in January of 2017. She had a SUB s tent in the past. She has had an RCA stent. She has a history of diabetes, end-stage renal disease on dialysis. While she was having hemodialysis today, developed substernal chest pressure radiating to the back and the jaw with some nausea, diaphoresis, but no vomiting. She had shortness of breath. She denied any PND, orthopnea, pedal edema, palpitations, or syncope. She had a positive troponin of 0.19. Her EKG showed nonspecific changes. The chest x-ray was unremarkable. Her creatinine was 6.1. Allergies: PLAVIX, GAIL INHIBITORS, MORPHINE. Medications: At home include Lipitor, Coreg, hydralazine, Effient, and lisinopril. Family History: Negative. Social History: Negative. Review of Systems: Negative. Physical Examination: Vital Signs: Stable. She is afebrile. HEENT: Negative. Neck: Supple without any bruit, lymphadenopathy, JVD, or thyromegaly. Chest: Clear to auscultation and percussion. Cardiac: Revealed a regular rhythm and rate with an S4 gallops. No murmurs or rubs. Abdomen: Benign. Extremities: Revealed no clubbing, cyanosis, or edema. Diagnostic Data: As stated earlier. Impression And Plan: 1.Acute coronary syndrome, elevated troponin, classic symptoms for unstable angina. 2.History of coronary artery disease, status post RCA stent and circumflex stent in the past. I rec ommend we do a heart catheterization on her tomorrow to evaluate her coronary anatomy. She will be d ue for dialysis on 10/18/2017. 3.Hypertension, poorly controlled. We may have to go up on the hydralazine dose or the Coreg dose. 4.Diabetes. 5.Dyslipidemia, on Lipitor. 6.Allergies to Plavix. The patient is taking Effient instead. We will follow her along. GHAZALA/MICHAEL Voice ID: [id number] Report ID: [id number]
[2017-10-17 04:19] LABS: Absolute Lymphocytes (CBC) 1.2 K/uL (0.7-4.9); Absolute Monocytes 0.8 K/uL (0.1-1.3); Absolute Neutrophil 5.7 K/uL (1.8-8.0); Basophils % 1.2 % (0-1.3); Eosinophils % 6.6 % (0-4.4); Hematocrit 32.1 % (36.0-45.0); Lymphocytes % 14.6 % (15.3-44.8); MCH 30.5 pg (27.0-35.0); MCV 92.5 fL (80-100); MPV 8.4 fL (7.6-11.3); Monocytes % 9.6 % (3.3-12.3); RBC Red Blood Cell Count 3.47 M/uL (3.86-4.86)
[2017-10-17 04:33] LABS: Albumin 2.9 g/dL (3.4-5.0); Phosphorus 4.3 mg/dL (2.5-4.9); Potassium 4.9 mmol/L (3.5-5.1)
[2017-10-17] MEDS ORDERED: LIDOCAINE 1% MPF 2 ML AMPULE ONE ×2 (07:09→08:13)
[2017-10-17] MEDS ORDERED: HEPA 1000U/500MLS 2,000 UNIT/1,000 ML BAG IV ONE (07:09)
[2017-10-17] MEDS ORDERED: NA CHLORIDE 0.9% 500 ML ONE (07:40)
[2017-10-17] MEDS ORDERED: MIDAZOLAM HCL 2 MG/2 ML INJ ONE (07:40)
[2017-10-17] MEDS ORDERED: FENTANYL CITR 100 MCG/2 ML ONE (07:41)
[2017-10-17] MEDS ORDERED: ATROPINE SULF 1 MG/10 ML SYR IV ONE (07:45)
[2017-10-17] MEDS ORDERED: NA CHLORIDE 0.9% 50 ML ONE (07:45)
[2017-10-17] MEDS ORDERED: NICARDIPINE HCL 25 MG/10 ML IV ONE (07:45)
[2017-10-17] MEDS: ASPIRIN EC 81 MG TAB PO SCH (08:51)
[2017-10-17] MEDS ORDERED: PRASUGREL (EFFIENT) 10 MG TAB ONE (09:17)
[2017-10-17] MEDS ORDERED: HYDRALAZINE HCL 20 MG/ML VIAL ONE (09:22)
[2017-10-17] MEDS ORDERED: NITROGLYCERIN 0.4 MG/TAB SL ONE (09:47)
[2017-10-17] MEDS ORDERED: cloNIDine HCl 0.1 MG TAB PO PRN (10:00)
--- NOTE | 2017-10-17 10:27 | EKG ---
Test Date: 2017-10-17 Test Time: 09:41:55 Senior Mechanical Development Engineer: KAYLYN MEASUREMENT RESULTS: Intervals: Rate: 74 ND: 296 QRSD: 166 QT: 504 QTc: 559 [place]: P: ND: 296 QRS: -79 T: 100 INTERPRETIVE STATEMENTS: Electronic ventricular pacemaker Compared to ECG 10/16/2017 08:50:43 Atrial-sensed ventricular-paced complex(es) or rhythm no longer present Electronically Signed On 10-17-17 10:27:42 CDT by Marcelo Napoles
[2017-10-17] MEDS: CA ACETATE 667 MG CAP PO SCH ×2 (12:00→16:38)
[2017-10-17] MEDS: MEDIHONEY 44 ML TOPICAL TUBE TOP SCH (15:44)
--- NOTE | 2017-10-17 18:55 | PN ---
Subjective: The patient seems much better this evening. She is no longer short of breath. Her rhyt hm is stable. She has been seen by Cardiology. A catheterization will be done in the a.m. HR/MODL Voice ID: [id number] Report ID: [id number]
--- NOTE | 2017-10-17 19:08 | HP ---
Date of Admission: 10/16/2017 Entrance Complaint: Shortness of breath. History Of Present Illness: The patient states she was in her usual state of health when she went to dialysis the morning of admission. Part way through she started getting some chest discomfort, wandy me painful, associated with this was some dyspnea. She was removed from dialysis and sent to the ER where diagnosis of acute CHF was made. She was diuresed and admitted for further evaluation. Past Medical History: The patient has had significant cardiovascular events over the past few years associated with cardiac, renal, and peripheral vascular. She has had down healing wounds at the [facility] ent time, which is being seen in the [facility]ound Center here and has been has evaluations and treatments by Peripheral Vascular Surgery in [place]. She was seen by Cardiology off and on for a number of ye ars as well. She is currently undergoing dialysis, which has been going on for a number of years wit hout any events that of the morning. Social History: Nonsmoker, nondrinker. Family History: Noncontributory. Physical Examination: GENERAL: At present time, patient is comfortable, elderly female, orientated. Vital Signs: Stable. Head and Neck: Normocephalic. Pupils equal and reactive to light and accommodation. Fundi negative . Trachea midline. Thyroid not palpable. ENT: Negative. Chest: Occasional rhonchi bilaterally. However, increased rales at both bases. Adequate air entry and movement bilaterally. No use of accessory muscles. Cardiovascular: PMI in midclavicular line. Heart: Sounds normal. Peripheral pulses are present and equal bilaterally. Abdomen: No organomegaly. Bowel sounds present. Extremities: Slightly dehydrated. Good tone and movement. Bilateral reflexes. Physiologic: Deferred. Rectal: Deferred. Pelvic: Deferred. Impression: Acute episode of congestive heart failure superimposed on chronic congestive heart failu re, renal failure on dialysis, peripheral vascular disease with multiple peripheral wounds nonhealing at present, cardiac arrhythmia, controlled by pacemaker, hypertension controlled, insulin-dependent diabetes mellitus controlled. Plan: The patient will be admitted and diuresed. Depending on the cardiology evaluation, initially looked like the troponin was elevated. The possibility of vascular incident leading to the CHF was m ore than likely factor being considered for catheterization in the morning. HR/MODL Voice ID: [id number]
--- NOTE | 2017-10-17 19:48 | OP ---
Surgeon: Marcelo Napoles MD Procedure: Left heart catheterization with coronary angiography, percutaneous coronary intervention of the mid right coronary artery with 2 stents, a 3.0 x 12 and a 3.0 x 9 Synergy stent. Both stents were post dilated with a 3.0 x 15 Emerge balloon to 14 atmospheres. Procedure Findings: The angiographic result was good. There was 10% residual stenosis. The stenosi s appeared to be friable and possibly thrombosed before and that resolved with the stenting procedure . Procedure In Detail: The patient was brought to the cardiac clinical genetics laboratory chief in fasting state, sedated with Versed and fentanyl. Right femoral artery was used. Lidocaine was used to anesthetize the tissues a round the right femoral artery, was entered using an 18-gauge needle, short J-wire, modified Seldinge r technique, 4-Venezuelan sheath. We angiogramed the coronaries with 4-Venezuelan JL4, 4-Venezuelan 3DRC. Decis ion was made to do a stent, so we gave Angiomax, demonstrated activated clotting time more than 300 s econds. We exchanged for a 6-Venezuelan sheath. Our guide catheter was a 6-Venezuelan 3DRC with side holes. The wire was a [place] wire. There was no predilation. Stents were deployed in [address]. It appeared to be that after the first stent, the more proximal part of the artery looked more abnor mal, so we placed a second stent more proximal to the first and post dilated both with an Emerge ball oon. The angiographic result was good, all the friability thrombus had resolved. CHAYA flow was 3. No complications, so after pictures were taken, wires and balloons removed from the patient, angiogra m was done of the right femoral artery through the sheath. Decision was made to close with Angio-Seal when the activated clotting time was less than 250 seconds . JUDY/MICHAEL Voice ID: [id number] Report ID: [id number]
[2017-10-17] MEDS ORDERED: QUETIAPINE FUMARATE 50 MG PO SCH (21:00)
[2017-10-17] MEDS ORDERED: HOME MED 1 EA UNK (Gabapentin [Gralise] 300 MG) PO SCH (21:00)
[2017-10-17] MEDS ORDERED: ATORVASTATIN 80 MG TAB PO SCH (21:00)
--- NOTE | 2017-10-18 01:35 | CON ---
Date of Consultation: 10/17/2017 Reason For Consultation: Elevated BUN and creatinine, hypertension, end-stage renal disease. History Of Present Illness: This is an 82-year-old female with significant past medical history of e nd-stage renal disease, on hemodialysis, TTS; hypertension; diabetes, complicated with neuropathy and nephropathy; carotid artery disease, status post PTCA; COPD; hypertension. The patient was in her r ular state of health yesterday on dialysis, the patient started having chest pain. For that reason , sent to the hospital. Primary workup showed unstable angina. Today, the patient underwent cardiac cath. The patient is anuric. Denied any nausea, any vomiting. Lab showed acidosis. Past Medical History: 1.Hypertension. 2.Hyperlipidemia. 3.End-stage renal disease, on hemodialysis, TTS. 4.Diabetes, complicated with neuropathy and nephropathy. 5.Coronary artery disease, status post PTCA. 6.COPD. Allergies: TO PLAVIX, ENALAPRIL, SIMVASTATIN, TYLENOL, RAMIPRIL, CODEINE, AND HYDROCODONE. Past Surgical History: PTCA, cardiac cath, AV fistula creation, hysterectomy. Social History: Denies smoking, denies drinking, denies drugs abuse. Home Medications: 1.Aspirin. 2.Insulin. 3.Carvedilol. 4.PhosLo. 5.Gabapentin. 6.Lisinopril. Review of Systems: Head and Neck: No red eye. No ear pain. GI: No nausea, no vomiting. : No polyuria. No dysuria. No hematuria. SILK FOLDER: No vaginal discharge. Respiratory: Has no shortness of breath. Cardiovascular: Has chest pain. Endocrine: No polydipsia. Skin: No rash. Neuro: Has neuropathy. Musculoskeletal: No joint pain. Skin: No rash. Physical Examination: Vital Signs: When I saw the patient, her blood pressure of the 174/73, pulse of 85, afebrile. Chest: Clear to auscultation. Heart: S1, S2. Systolic murmur. Abdomen: Soft, nontender. Extremities: No edema. Laboratory Data: WBC 8.4, H and H 10.6/32.1, platelets 260. Sodium 135, potassium 4.9, bicarb 30, B UN 38, creatinine 7.2, calcium 8.8, phosphorus 4.3. Medications: Current medications in the hospital include Tylenol, aspirin, atorvastatin, carvedilol 3.25 b.i.d., lisinopril 20, Zofran. Assessment And Plan: 1.End-stage renal disease, normal volume, anuric. I am going to go ahead and arrange for dialysis t omorrow as per her schedule. 2.Hypertension, controlled, optimal. Continue current medication. 3.Alkalosis, secondary to renal failure. We will continue dialysis. 4.Anemia of chronic kidney disease. Resume Epogen. 5.Marginal hyperkalemia. We will dialyze on low potassium bath. 6.Coronary artery disease as by Cardiology. MARY/MICHAEL Voice ID: [id number] Report ID: [id number]
[2017-10-18 05:26] VITALS: BMI 26.3
[2017-10-18 07:44] LABS: Hematocrit 30.7 % (36.0-45.0); MCH 30.7 pg (27.0-35.0); MCV 91.5 fL (80-100); MPV 8.7 fL (7.6-11.3); RBC Red Blood Cell Count 3.36 M/uL (3.86-4.86)
[2017-10-18 07:55] LABS: Potassium 5.4 mmol/L (3.5-5.1)
[2017-10-18] MEDS ORDERED: PRASUGREL (EFFIENT) 10 MG TAB PO SCH ×2 (09:00)
[2017-10-18] MEDS ORDERED: CARVEDILOL 3.125 MG TAB PO SCH (09:00)
[2017-10-18] MEDS ORDERED: LISINOPRIL 20 MG TAB PO SCH (09:00)
[2017-10-18] MEDS ORDERED: CITALOPRAM 10 MG TABLET PO SCH (09:00)
[2017-10-18] MEDS: ASPIRIN EC 81 MG TAB PO SCH (09:37)
[2017-10-18] MEDS: CA ACETATE 667 MG CAP PO SCH ×3 (09:39→17:00)
[2017-10-18] MEDS: MEDIHONEY 44 ML TOPICAL TUBE TOP SCH (09:41)
[2017-10-18 14:20] VITALS: O2SAT 98
[2017-10-18 18:44] VITALS: BP 112/75; TEMP 96.7
--- NOTE | 2017-10-18 19:24 | PN ---
Date of Progress Note: 10/17/2017 The patient underwent catheterization procedure. She was actually feeling quite a bit better prior t o the procedure. Depending on the results, further disposition will be made. Review of her records from the [facility]ound Center does reveal extensive bilateral peripheral vascular disease necessitating proce dures over the past few months, compatible with her cardiac status as well. HR/MODL Voice ID: [id number] Report ID: [id number]
--- NOTE | 2017-10-18 21:49 | PN ---
Date of Progress Note: 10/18/2017 Subjective: The patient doing better. Status post cardiac cath yesterday, tolerated well. The vaughn ent is scheduled for dialysis today. Physical Examination: Vital Signs: When I saw the patient, the patient lying in bed, comfortable, not in any distress. Vital Signs: Blood pressure 150/78, pulse of 88. Chest: Clear to auscultation. Heart: S1, S2. Regular. Abdomen: Soft, nontender. Extremities: No edema. Current Medications: The patient is on include; 1.Pantoprazole. 2.Nitroglycerin p.r.n. 3.Zofran. 4.Lopressor. Laboratory Data: Reviewed. Creatinine 10.6. BUN above 50. No hyperkalemia. H and H 10.3/30.7. Sodium 132, potassium 5.4, bicarb 27, BUN 46, creatinine 8.7. Assessment And Plan: 1.End-stage renal disease, normal volume. The patient is going to be scheduled for dialysis today. 2.Hypertension, controlled, optimal. Continue current medication. 3.Coronary artery disease as by Cardiology. 4.Hyperkalemia. The patient is going to be dialyzed on low potassium bath. The patient cleared for discharge planning. Cardiology clear. Will follow up as outpatient. Case d iscussed with the patient, verbalized understanding. Discussed with the staff, agreed. JOHNNY Voice ID: [id number] Report ID: [id number]
--- NOTE | 2017-10-19 18:46 | PN ---
Date of Progress Note: 10/18/2017 The patient has completed her dialysis today. She states she feels back to baseline. She has tolera geovanna the catheterization and stent placement without problem. She will be discharged on the same medi cation. Follow up with myself and Cardiology next week. HR/MODL Voice ID: [id number] Report ID: [id number]
--- NOTE | 2017-10-21 19:28 | PN ---
Date of Progress Note: 10/18/2017 Ms. Carroll was admitted on 10/16/2017. On 10/18/2017 because of unstable angina, underwent an RCA stent by Dr. Dony mcduffie. The patient tolerated the procedure well. She will be having hemodialysis today. No complications. No telemetry issues. Cath site is intact. She can go home on her home me dications plus Effient. She is allergic to Plavix. We will see her in the office in 2 weeks. GHAZALA/MICHAEL Voice ID: [id number] Report ID: [id number]
--- NOTE | 2017-11-19 23:14 | CON ---
Date of Consultation: 11/19/2017 History Of Present Illness: Ms. Carroll is an 82-year-old patient with multiple medical problems [place] end-stage renal disease, on hemodialysis; found to have a gangrene of the left foot multiple digit and a surgical consult were obtained for left below-knee amputation. Dr. Marley one of the podiatris t in the area had seen the patient in the wound healing center trying to get this foot better, has be en working hard and trying to her improved, but noticed in the last 24 hours had changed dramatically to the point that she has gangrene over that area. Surgical consult was obtained for the below-knee amputation. Past Medical History: End-stage renal disease, on hemodialysis; cardiac disease. The patient has hi story of stent placed 1 month ago. I discussed the case with Dr. Napoles today. The patient also hav e revascularization in [place] by the Vascular surgeons with this still in the process of also doi richard some more workup even if the amputation is done. Social History: She does not smoke. She does not drink alcohol. Family History: Noncontributory. Review of Systems: Ten points otherwise unremarkable. Physical Examination: General: The patient awake, alert. No distress. HEENT: Pupils anicteric. Neck: Supple. Chest: Clear. Abdomen: Soft and depressible. Nontender. Nondistended. Extremities: Over the left foot area, patient has gangrenous changes in the distal part of the foot and digits. Dorsalis pedis pulses now present. The patient also have gangrenous changes in the sole of the foot near the heel region. Assessment: An 82-year-old patient with gangrene of the left foot area distally on the patient and t he primary doctors sat down and then discuss with me the possibility of left below-knee amputation. I discussed the case also with Cardiology Department. We are going to proceed with left below-knee a mputation with benefits, alternatives, and risks fully explained to the patient, which include but ar e not limited to infection, bleeding, damage to adjacent structures, anesthesia complication, flap fa ilure, myocardial infarction, or even . She also understands this may not relieve symptoms. Sh e might need more than one surgical intervention. She understands the importance of continue workup for her vascular problems including any necessary procedures that they believe is prudent to improve the circulation to the stump area to increase the chance of healing. HM/MICHAEL Voice ID: [id number] Report ID: [id number]
== END 2017-10-18 19:05 | disposition home or self-care (01) ==
LOC: ER 08:14 → ERHOLD 10:02 → 2ND 12:31
PROVIDERS: ADMIT Family Medicine; ATTEND Family Medicine
PROC: 5A1D70Z Performance of Urinary Filtration, Intermittent, Less than 6 Hours Per Day (ICD-10-PCS; principal; 2017-10-18)
DX: I25.110 Atherosclerotic heart disease of native coronary artery with unstable angina pectoris (principal); Z95.5 Presence of coronary angioplasty implant and graft; I13.2 Hypertensive heart and chronic kidney disease with heart failure and with stage 5 chronic kidney disease, or end stage renal disease; E11.22 Type 2 diabetes mellitus with diabetic chronic kidney disease; N18.6 End stage renal disease; I50.9 Heart failure, unspecified; Z99.2 Dependence on renal dialysis; E11.40 Type 2 diabetes mellitus with diabetic neuropathy, unspecified; J44.9 Chronic obstructive pulmonary disease, unspecified; E78.5 Hyperlipidemia, unspecified; E87.5 Hyperkalemia; E87.3 Alkalosis; I73.9 Peripheral vascular disease, unspecified; Z79.82 Long term (current) use of aspirin
CPT/HCPCS: 36415; 71045; 80048; 80069; 82962; 83880; 84484; 85025; 85027; 85347; 85610; 85730; 93005; 93280; 93454; 99285; C1725; C1760; C1893; C9600; G0378; J0360; J0583; J2001; J2250; J3010

== ENCOUNTER 2017-11-19 10:30 | Inpatient (IN) | payer OTHER ==
--- OUTSIDE RECORDS SUMMARY | 2017-11-19 12:12 | XMS REPORT | Clinical Summary ---
:1935 Author Organization [facility] Address [address] [place] [address] Care Team Providers Name Role Phone Arslan [...] Date End Date Status bimatoprost Administer 1 drop Active (LUMIGAN) 0.03 % to both eyes ophthalmic drops nightly. insulin regular Inject under the Active [...] 2 (two) capsule times a day. warfarin (COUMADIN) Take 4 mg by Active 4 MG tablet mouth daily. B complex-minerals Take by mouth. Active tablet calcium acetate TK 2 CS PO WITH 11 10/07/2016 Active (PHOSLO) 667 mg MEALS AND 1 C PO capsule WITH SNACK carvedilol (COREG) Take 6.25 mg by Active 6.25 MG tablet mouth 2 (two) times a day with meals. citalopram (CeleXA) Take 1.5 tablets 0 08/17/2016 Active 20 MG tablet by mouth daily. clonIDINE (CATAPRES) TK 1 T PO Q 8 H 2 10/03/2016 Active 0.1 MG tablet PRN IF SYSTOLIC BLOOD PRESSURE IS GREATER THAN 160-180 fluticasone USE 1 SPRAY IEN 5 10/25/2016 Active (FLONASE) 50 BID mcg/actuation nasal spray GÓMEZ-CASSIA RX 1 tablet daily. 8 09/27/2016 Active 1-60-300 mg-mg-mcg tablet traMADol (ULTRAM) 50 Take 1 tablet (50 40 tablet 0 11/08/2016 11/22/2016 mg tablet mg total) by mouth every 6 (six) hours as needed for moderate pain for up to 40 doses. Active Problems No known active problems Encounters Date Type Specialty Care Team Description 07/11/2017 Procedure Pass General Surgery after 11/18/2016 Social History Tobacco Use Types Packs/Day Years Used Date Former Smoker Cigarettes Quit: 1989 Smokeless Tobacco: Never Used Alcohol Use Drinks/Week oz/Week Comments Yes wine occasionally Sex Assigned at Date Recorded Not on file Last Filed Vital Signs Not on file Plan of Treatment Health Maintenance Due Date Last Done Comments SHINGRIX VACCINE (#1) 1986 ZOSTER VACCINE 1996 PNEUMOCOCCAL POLYSACCHARIDE VACCINE AGE 65 AND OVER 2001 PNEUMOCOCCAL-13 2001 INFLUENZA VACCINE 10/24/2017 Implants Implanted Type Area Production Support Specialist Device Expiration Model / Identifier Date Serial / Lot Graft Vasclr Acuseal 40cm 6mm - [id number] - [id number] Vascular N/A: N/A W Amie GORE 05/19/2019 [id number] / Implanted: Qty: 1 on 11/08/2016 by Herman Fraga MD Graft [id number] / [id number] Results Not on fileafter 11/18/2016 Insurance Payer Benefit Plan / Group Subscriber ID Type Phone Address MEDICARE MEDICARE PART A AND B xxxxxxxxxx Medicare [place], [place] [phone] [id number]
[2017-11-19] MEDS ORDERED: ACETAMINOPHEN 500 MG TAB PO PRN (12:15)
[2017-11-19 13:01] LABS: Absolute Lymphocytes (CBC) 1.4 K/uL (0.7-4.9); Absolute Monocytes 0.9 K/uL (0.1-1.3); Absolute Neutrophil 10.9 K/uL (1.8-8.0); Basophils % 0.6 % (0-1.3); Eosinophils % 3.2 % (0-4.4); Hematocrit 28.9 % (36.0-45.0); Lymphocytes % 10.3 % (15.3-44.8); MCH 29.4 pg (27.0-35.0); MCV 92.7 fL (80-100); MPV 8.2 fL (7.6-11.3); Monocytes % 6.5 % (3.3-12.3); RBC Red Blood Cell Count 3.12 M/uL (3.86-4.86)
[2017-11-19 13:04] LABS: Potassium 3.7 mmol/L (3.5-5.1)
[2017-11-19 13:19] LABS: Protime INR 1.14
[2017-11-19] MEDS: NA CHLORIDE 0.9% 1,000 ML IV SCH (14:03)
--- NOTE | 2017-11-19 15:45 | EKG ---
Test Date: 2017-11-19 Test Time: 12:41:00 Mutuel Machine Operator: WANDER MEASUREMENT RESULTS: Intervals: Rate: 67 MN: 400 QRSD: 178 QT: 492 QTc: 519 Saxe: P: MN: 400 QRS: -78 T: 105 INTERPRETIVE STATEMENTS: Electronic ventricular pacemaker Compared to ECG 10/17/2017 09:41:55 No significant changes Electronically Signed On 11-19-17 15:44:54 CDT by Marcelo Napoles
[2017-11-19] MEDS: PIPER/TAZO/NS 2.25gm 2.25 GM/50 ML BAG IVPB SCH (18:07)
[2017-11-19] MEDS ORDERED: cloNIDine HCl 0.1 MG TAB PO PRN (19:48)
--- NOTE | 2017-11-19 20:58 | CON ---
Ms. Carroll is in the hospital because of problems with her left foot. Dr. Rondon has recommended a be [id number] amputation. She has very poor circulation, gangrene of the fifth digit, evidence of pina lulitis and osteomyelitis. Otherwise, 1 month ago, she had 2 intracoronary stents placed in right co ronary and she remains on anti-platelet therapy for that. She is allergic to Plavix but she has been on Effient and aspirin. On October 16, 2017 so it is definitely not a time when we should w ithhold Effient from her even though she needs an amputation. Hemostasis can be obtained even though Plavix undesirable, but we are at the point where the removal of the foot is emergent and equally urgent is preventing stent closure. We will talk with Dr. Rondon some of the recommendati ons. JUDY/MICHAEL Voice ID: [id number] Report ID: [id number]
[2017-11-19] MEDS: HOME MED 1 EA UNK (Gabapentin [Gralise] 600 MG) PO SCH (21:00)
[2017-11-19] MEDS: LATANOPROST 0.005% 2.5ML OPTH OPTH SCH (21:00)
[2017-11-19] MEDS: QUETIAPINE FUMARATE 50 MG PO SCH (21:00)
[2017-11-19] MEDS: INSULIN -REGULAR HUMAN 50 UNIT/0.5 ML ML SQ SCH (21:00)
[2017-11-19] MEDS: CA ACETATE 667 MG CAP PO SCH (21:19)
[2017-11-19] MEDS: ATORVASTATIN 80 MG TAB PO SCH (21:20)
[2017-11-19] MEDS: TRAMADOL HCL 50 MG TAB PO PRN (21:20)
[2017-11-19] MEDS: CARVEDILOL 3.125 MG TAB PO SCH (21:20)
--- NOTE | 2017-11-19 23:59 | HP ---
Date of Admission: 11/19/2017 Primary Care Physician: Dr. Lema. Consultants: Dr. Rondon and Dr. Napoles with Surgery and Cardiology respectively. Chief Complaint: Gangrene of the fourth and fifth left toe. Code Status: Full code. Hpi: The patient is an 82-year-old female with past medical history of severe peripheral arterial disease, coronary artery disease with recent stents and multiple wounds, who has been following [facility] as well as with Dr. Marley. The patient states that her left fifth toe became erythematous and then subsequently gangrenous over the past couple of days. She does report foul smelling odor and redness that is extending around her left foot with some pain and swelling. The patient's symptoms are constant, moderate, progressively worsening; therefore, she came into the [facility], was seen by Dr. Marley today and was referred for direct admission to the floor for cellulitis and possible amputation. Past Medical History: Cardiovascular disease with multiple stents in her heart and her legs, multiple wounds, recent atherectomy and stent placement in her lower extremities in [place]. ESRD on HD Medications: List reviewed. Allergies: TO RAMIPRIL, PLAVIX, ENALAPRIL, MORPHINE, HYDROCODONE, CODEINE, ACETAMINOPHEN FROM VICODIN, SIMVASTATIN, PROPOXYPHENE FROM DARVOCET. Social History: The patient denies any tobacco use, alcohol use, or illicit drug use. Family History: Denies any premature coronary artery disease in the family. Review of Systems: An 11-point system reviewed, negative except as per HPI. Physical Examination: Vital Signs: HR:66 RR:16 BP: 173/79 O2 saturation is 91% on room air. General: Awake, alert, oriented x3. Some mild distress. Elderly female, ill- appearing. HEENT: Normocephalic, atraumatic. PERRLA. EOMI. Moist mucous membranes. Poor dentition. Oropharynx is clear. Conjunctiva is anicteric. Neck: Supple. No JVD. Trachea midline. CV: S1, S2. Peripheral pulses weak bilaterally. No murmurs. Respiratory: Moving air well bilaterally. No wheezing. No stridor. Gastrointestinal: Abdomen is soft, nontender, nondistended. Positive bowel sounds. No guarding or rigidity. Extremities: No clubbing, cyanosis. The patient does have lower extremity edema. No calf tenderness. Neuro: Cranial nerves 2 through 12 intact grossly. No focal neurological deficit. Speech is normal. Skin: Left foot, fourth and fifth toe are gangrenous along with erythema of the foot with swelling and some mild tenderness to palpation. Warm to touch. Psych: Mood is okay. Affect is full. Insight and judgment are good. Laboratory Data: Sodium 137, potassium 3.7, chloride 100, CO2 29, BUN 27, creatinine 6.6, glucose 141, calcium 10.3. INR pending. WBC 13.7, H and H 7.2 and 28.9, platelets 355, neutrophils 79%. Assessment And Plan: An 82-year-old female with: 1. Left fourth and fifth toe gangrene with cellulitis. The patient will likely need amputation. Dr. Rondon is being consulted. Spoke with Dr. Page, the patient's trade show specialist. Okay for surgery from his standpoint. The patient already took her blood thinner today. Would anticipate surgery in a.m. 2. Severe peripheral vascular disease, status post stents. 3. Coronary artery disease, [place] artery and [place] heart without angina, status post stents, on blood thinners. 4. End-stage renal disease, on hemodialysis. We will consult the patient's nip wrapper. She has seen Dr. Crowder in the past. We will continue hemodialysis as scheduled. 5. Gastrointestinal and deep venous thrombosis prophylaxis addressed. Plan: Admit the patient to Med-Surg, place as inpatient. We will start on IV antibiotics. Obtain wound cultures and blood cultures. Transfer service to Dr Lema once he is back /MICHAEL Voice ID: [id number] [facility] HOSPITALAishwarya
--- NOTE | 2017-11-20 02:53 | CON ---
Date of Consultation: 11/19/2017 Chief Complaint: End-stage renal disease, on dialysis. History Of Present Illness: The patient has history of end-stage renal disease , she has been dialyzed 3 times per week on Sunday, , Sunday. She has severe peripheral vascular disease, and she is admitted for the fifth digit gangrene. There is severe cellulitis and osteomyelitis in left lower extremity. The patient is to have BKA. Cardiology consultation was obtained to evaluate the patient prior to surgery and cleared her for procedure. Lab work was obtained in the hospital and it showed leukocytosis, WBC 13.7. The patient has chronic anemia, hemoglobin is 9.2. There is no evidence of bleeding. Electrolytes are stable, potassium level is 3.7, and there is no evidence of decompensated metabolic acidosis. Review of Systems: Constitutional: The patient is complaining of generalized weakness. Denies fever, chills. Eyes: Denies vision changes. Ears, Nose, Mouth, and Throat. Denies sore throat, earache. Respiratory: Denies PND, orthopnea. Cardiovascular: Denies chest pain, palpitation. GI: Denies nausea, vomiting. : Denies dysuria, hematuria. Musculoskeletal: Denies muscle aches or joint swelling. All other systems reviewed and all are negative. Past Medical History: Hypertension; hyperlipidemia; end-stage renal disease, on Sunday, , and Sunday; diabetes mellitus with peripheral neuropathy , nephropathy, retinopathy; coronary artery disease status post PTCA; COPD. Past Surgical History: Hysterectomy, AV fistula creation, PTCA, cardiac catheterization, AV graft. Social History: Denies tobacco, alcohol, or illicit drugs. Family History: No kidney disease in the family. Physical Examination: General: The patient is awake, alert. Eyes: Anicteric sclerae. EOMI. Ears, Nose, Mouth, and Throat: Oral mucosa moist. No pallor. Neck: Supple. No JVD. No bruits. Lungs: Clear to auscultation bilaterally. Heart: S1, S2. No pericardial friction rub. Abdomen: Soft, benign, nontender. Extremities: Dressing on right feet. No oozing, no drainage of blood. Neurological: Moving extremities. Cranial nerves intact. Psychiatric: Alert, oriented x3. Normal affect. Laboratory Data: WBC 13.7, hemoglobin 9.2, platelet count is 355,000. Chemistry showed sodium 137, potassium 3.7, chloride 100, CO2 29, BUN 27, creatinine 6.6, calcium 10.3. Impression And Plan: 1. End-stage renal disease, dialysis will be done tomorrow morning. 2. Potassium level is in good control. Monitor electrolytes. 3. Hypertension. Continue blood pressure medication. 4. Severe peripheral vascular disease. Recommendations from Cardiology. 5. Anemia in chronic kidney disease. Continue JESSICA. 6. Cellulitis, osteomyelitis, gangrene. Continue IV antibiotics. The patient is awaiting BKA. RINA/MICHAEL Voice ID: [id number] Report ID: [id number] MTDAishwarya
[2017-11-20] MEDS: NA CHLORIDE 0.9% 1,000 ML IV SCH ×3 (03:29→13:17)
[2017-11-20] MEDS: PIPER/TAZO/NS 2.25gm 2.25 GM/50 ML BAG IVPB SCH ×3 (03:29→17:26)
[2017-11-20 05:12] LABS: Absolute Lymphocytes (CBC) 0.8 K/uL (0.7-4.9); Absolute Monocytes 0.7 K/uL (0.1-1.3); Absolute Neutrophil 7.5 K/uL (1.8-8.0); Basophils % 0.9 % (0-1.3); Eosinophils % 4.2 % (0-4.4); Hematocrit 25.1 % (36.0-45.0); Lymphocytes % 8.1 % (15.3-44.8); MCH 30.5 pg (27.0-35.0); MPV 8.1 fL (7.6-11.3); Monocytes % 7.7 % (3.3-12.3); RBC Red Blood Cell Count 2.73 M/uL (3.86-4.86)
[2017-11-20 05:35] LABS: Potassium 3.6 mmol/L (3.5-5.1)
[2017-11-20] MEDS: VANCOMYCIN 500 MG in NA CHLORIDE 0.9% 100 ML IV SCH (06:34)
[2017-11-20] MEDS: INSULIN -REGULAR HUMAN 50 UNIT/0.5 ML ML SQ SCH ×4 (07:30→21:00)
[2017-11-20] MEDS: CA ACETATE 667 MG CAP PO SCH ×3 (09:00→20:51)
[2017-11-20] MEDS: PRASUGREL (EFFIENT) 10 MG TAB PO SCH (09:00)
[2017-11-20] MEDS ORDERED: LISINOPRIL 20 MG TAB PO SCH (09:00)
[2017-11-20] MEDS: CARVEDILOL 3.125 MG TAB PO SCH ×2 (09:00→20:51)
[2017-11-20] MEDS: CITALOPRAM 10 MG TABLET PO SCH (09:00)
[2017-11-20] MEDS ORDERED: DESMOPRESSIN 4 MCG/ML AMP IV ONE (11:05)
[2017-11-20] MEDS ORDERED: DIPHENHYDRAMINE 50 MG/ML VIAL IV ONE (11:06)
[2017-11-20] MEDS ORDERED: DESMOPRESSIN 20 MCG in NA CHLORIDE 0.9% 50 ML IV ONE (11:15)
[2017-11-20] MEDS ORDERED: FENTANYL CITR 100 MCG/2 ML ONE (12:41)
[2017-11-20] MEDS ORDERED: MIDAZOLAM HCL 2 MG/2 ML INJ ONE (12:41)
[2017-11-20] MEDS ORDERED: ETOMIDATE 20 MG/10 ML VIAL IV ONE (12:42)
[2017-11-20] MEDS ORDERED: KETAMINE HCL 500 MG/5 ML VIAL ONE (12:58)
--- NOTE | 2017-11-20 14:47 | P.BOP ---
Preoperative diagnosis: Left foot gangrene Postoperative diagnosis: same Primary procedure: Left Below knee amputation Estimated blood loss: <10occ Specimen: foot Findings: as above Anesthesia: General Complications: None Drain(s): HAZEL drain Transferred to: Recovery Room Condition: Good
[2017-11-20] MEDS ORDERED: MORPHINE 4 MG/ML SYR ONE (14:58)
[2017-11-20] MEDS ORDERED: MEPERIDINE HCL 50 MG/ML AMP ONE (15:04)
[2017-11-20] MEDS: FENTANYL CITR 100 MCG/2 ML ONE ×7 (15:16→16:28)
[2017-11-20] MEDS ORDERED: MEPERIDINE HCL 50 MG/ML AMP IV PRN (15:31)
[2017-11-20] MEDS: MIDAZOLAM HCL 2 MG/2 ML INJ ONE ×3 (15:44→16:41)
[2017-11-20] MEDS: TRAMADOL HCL 50 MG TAB PO PRN ×2 (17:55→21:49)
[2017-11-20] MEDS: MEPERIDINE HCL 50 MG/ML AMP IV PRN ×2 (18:05→20:48)
[2017-11-20] MEDS: LATANOPROST 0.005% 2.5ML OPTH OPTH SCH (21:00)
[2017-11-20] MEDS: QUETIAPINE FUMARATE 50 MG PO SCH (21:00)
[2017-11-20] MEDS: HOME MED 1 EA UNK (Gabapentin [Gralise] 600 MG) PO SCH (21:00)
[2017-11-20] MEDS: ATORVASTATIN 80 MG TAB PO SCH (21:28)
[2017-11-21] MEDS: PIPER/TAZO/NS 2.25gm 2.25 GM/50 ML BAG IVPB SCH ×3 (01:05→16:04)
--- NOTE | 2017-11-21 01:56 | PN ---
Date of Progress Note: 11/20/2017 Subjective: The patient was admitted with ischemic leg, plan for below-knee amputation. Physical Examination: Vital Signs: Blood pressure 174/81, pulse of 75. Chest: Clear to auscultation. Heart: S1, S2. Regular. Abdomen: Soft, nontender. Extremities: No edema. Gangrenous left little toe. Laboratory Data: WBC 9.5, H and H 8.3/25.1, platelets 281. Sodium 141, potassium 3.6, bicarb 32, BU N 13, creatinine 3.8, calcium 9.2. Medications: Current medications the patient on it include: 1.Vancomycin. 2.Zosyn. 3.Carvedilol 3.125. 4.Clonidine 0.1 p.r.n. 5.Lisinopril 20 daily. 6.Tylenol. 7.PhosLo. 8.Normal saline at 75 per hour. Assessment And Plan: 1.End-stage renal disease, stable on baseline. Continue hemodialysis. The patient will be schedule d for dialysis tomorrow. The patient is going to be undergoing foot amputation. I am going to go ah ead and give DDAVP and we will follow up the patient. 2.Hypertension, uncontrolled. We will go ahead and increase her lisinopril to b.i.d. and increase h er carvedilol and we will follow up the patient. 3.Diabetes as by primary. 4.Gangrenous toe with peripheral vascular disease. Follow up with Surgery. 5.Anemia. Continue Epogen. MARY/MICHAEL Voice ID: [id number] Report ID: [id number]
[2017-11-21] MEDS: MEPERIDINE HCL 50 MG/ML AMP IV PRN ×5 (04:01→18:01)
[2017-11-21] MEDS: TRAMADOL HCL 50 MG TAB PO PRN ×4 (05:16→17:04)
[2017-11-21 05:44] LABS: Absolute Lymphocytes (CBC) 0.9 K/uL (0.7-4.9); Absolute Monocytes 0.8 K/uL (0.1-1.3); Absolute Neutrophil 9.1 K/uL (1.8-8.0); Basophils % 0.8 % (0-1.3); Eosinophils % 3.4 % (0-4.4); Hematocrit 25.4 % (36.0-45.0); Lymphocytes % 8.3 % (15.3-44.8); MCH 29.9 pg (27.0-35.0); MCV 92.1 fL (80-100); MPV 8.3 fL (7.6-11.3); Monocytes % 7.5 % (3.3-12.3); RBC Red Blood Cell Count 2.76 M/uL (3.86-4.86)
[2017-11-21 06:04] LABS: Potassium 4.3 mmol/L (3.5-5.1)
[2017-11-21] MEDS: INSULIN -REGULAR HUMAN 50 UNIT/0.5 ML ML SQ SCH ×4 (07:30→20:52)
[2017-11-21] MEDS: CARVEDILOL 3.125 MG TAB PO SCH ×2 (08:15→20:59)
[2017-11-21] MEDS: CITALOPRAM 10 MG TABLET PO SCH (08:15)
[2017-11-21] MEDS: LISINOPRIL 20 MG TAB PO SCH ×2 (08:16→21:00)
[2017-11-21] MEDS ORDERED: NALOXONE HCL 2 MG/2 ML VIAL ONE (08:31)
--- NOTE | 2017-11-21 09:04 | CON ---
Date of Consultation: 11/20/2017 Reason For Consultation: Cardiac clearance for PAD. History Of Present Illness: Mrs. Carroll is an 82-year-old woman. She is very well known to me from pre vious office visits and admission. She has recently had an OM stent by Dr. Napoles. Has had RCA and LAD stents in the past. She has a history of end-stage renal disease, on hemodialysis. She has a pa cemaker, chronic diastolic congestive heart failure, diabetes, hypertension, dyslipidemia. Has had a history of peripheral arterial disease. She sees some Vascular Clinic in [place] and they had do ne 7 or 8 stents on her legs and the left side and right side. Came in with an ischemic toe. There is plan for below-knee amputation. She has not had any cardiac symptoms since her last stent. Reque sting to see her for clearance. Past Medical History: As stated above. Allergies: SHE IS ALLERGIC TO RAMIPRIL, LISINOPRIL, PLAVIX, AND MORPHINE. Medications: Lipitor, Effient, clonidine, Coreg, and insulin. Review of Systems: Negative. Social History: Negative. Family History: Positive for heart disease and diabetes. Physical Examination: General: She was in no acute distress. Vital Signs: Stable. She was in a sinus rhythm. HEENT: Negative. Neck: Supple with no bruit, lymphadenopathy, or JVD. Chest: Clear. Cardiac Exam: Revealed a regular rhythm and rate with an S4 gallops. No murmurs or rubs. Abdomen: Benign. Extremities: Revealed no clubbing, no edema. She had cyanosis of her right foot. Diagnostic Data: Her EKGs showed LVH. White count of 13,000, hemoglobin 9.2, creatinine is 6.6. Tr oponin is negative. Impression And Plan: I think Mrs. Carroll is at low risk for perioperative mortality from a cardiac jesus dpoint. I would suggest not holding the Effient for too long to do the surgery. May need to be star geovanna frequently after the surgery just because of the recent stent. We will be available for question s if the need arise. Rest of her problems include diastolic congestive heart failure, history of pac emaker placement, end-stage renal disease, diabetes, hypertension, and dyslipidemia seem to be stable at this point. GHAZALA/MICHAEL Voice ID: [id number] Report ID: [id number]
[2017-11-21] MEDS: PRASUGREL (EFFIENT) 10 MG TAB PO SCH (09:24)
[2017-11-21] MEDS: CA ACETATE 667 MG CAP PO SCH ×3 (09:25→20:58)
[2017-11-21] MEDS: EPOETIN ALFA 10,000 UNIT/ML VIAL IV SCH (09:50)
[2017-11-21] MEDS: VANCOMYCIN 500 MG in NA CHLORIDE 0.9% 100 ML IV SCH (11:54)
[2017-11-21] MEDS ORDERED: MELOXICAM 7.5 MG TAB PO ONE (12:00)
[2017-11-21] MEDS ORDERED: LORAZEPAM 1 MG TABLET PO PRN (15:51)
[2017-11-21] MEDS: ATORVASTATIN 80 MG TAB PO SCH (21:00)
[2017-11-21] MEDS: LATANOPROST OPTH SCH (21:00)
[2017-11-21] MEDS: QUETIAPINE 50 MG PO SCH (21:01)
--- NOTE | 2017-11-21 21:56 | PN ---
Date of Progress Note: 11/21/2017 The patient is doing quite well following her BKA. Blood sugars are stable. Blood pressure is stabl e. There has been some adjustment of her medication. There is difficulty controlling her pain. How ever, it is difficult to evaluate as well as there is some overlying anxiety status as well. Various combinations will be utilized. She should be able to be transferred to the floor care in the [facility] HR/MODL Voice ID: [id number] Report ID: [id number]
--- NOTE | 2017-11-21 23:01 | PN ---
Date of Progress Note: 11/21/2017 Diagnosis: Status post below-knee amputation. Subjective: The patient is doing well. No complaints. Talkative. No distress. Physical Examination: Abdomen: Soft and depressible. Extremities: Intact surgical site. HAZEL drain, serosanguineous minimal. Laboratory Data: Blood work shows a hemoglobin of 8.3. INR is 1.14. Creatinine is 5.3. Assessment: An 82-year-old patient, status post below-knee amputation. The patient is doing well. We continue the same medical treatment. Knee immobilizer, IV antibiotics, and HAZEL drain care. HM/MODL Voice ID: [id number] Report ID: [id number]
--- NOTE | 2017-11-22 00:46 | OP ---
Date of Procedure: 11/20/2017 Surgeon: Matt Rondon MD Preoperative Diagnosis: Left foot gangrene. Postoperative Diagnosis: Left foot gangrene. Procedure: Left below-knee amputation. Anesthesia: General plus local. Drains: HAZEL #10. Indications: This is the case of a female who comes to us with gangrene of left foot, cardiac diseas e, on anticoagulation, recent MS. Due to the fast progression of the gangrene, I was asked to an marvin rgent below-knee amputation with benefits, alternatives, and risks including, but not limited to infe ction, bleeding, damage to adjacent structures, anesthesia complication, flap failure, MS, and even d eath. She also understands this may not relieve any symptoms, she might need more than one surgical intervention. The case was discussed with the family member, Dr. Napoles, Dr. Page, Dr. Lema, Aishwarya Marley, and . After discussing the pros and cons, we just came to the conclusion pato t knee amputation emergently will be the best for her at this moment. Procedure In Detail: The patient was brought to the operating room, placed in supine position. Anes thesia was done without complication. The left foot and leg were prepped and draped in usual sterile fashion. After that, anterior and posterior skin incisions were outlined with a marking pen. An in cision was made in the anterior skin about 12 cm from anterior tuberosity distal, extending medial an d lateral down to the edges of the gastrocnemius muscle. At that moment, we proceeded to distally ab out 12 cm from the tibia. We proceeded to create a posterior flap. The skin and subcutaneous tissue s were carefully incised down to the fascia. Saphenous veins were identified and ligated. The fasci a and muscle were then divided with electrocautery. The muscles in the anterior and lateral compartm ents were divided exposing the anterior tibial vessels which looked calcified, but still suture ligat ed with 0 silk. Interosseous membrane was carefully incised. Periosteal tibia was circumferentially elevated with a periosteum elevator. The periosteum was then stripped down to about 2 cm. The tibi a was transected with a Gigli saw with an anterior bevel. The fibula was then exposed, dissected cir cumferentially, and transected with a bone cutter. Amputation was then completed with a nice transec ting the soleus muscle, gastrocnemius muscle. The posterior tibia and peroneal vessels were also lig ated, although once again looked calcified with minimal bleeding. The bone was then filed. __ was placed on the bone medulla. The fascia of the anterior and posterior muscle flaps were approx imated with 0 Vicryl. Then, the skin was approximated with staple after putting a HAZEL drain in exitin g through a different side and secured in place with 2-0 nylon. The patient tolerated the procedure well. Sterile dressing was placed over the area. Flaps have good capillary refill. Sponge count an d instrument counts were correct. The patient was sent to recovery in stable condition. GALINDO/MICHAEL Voice ID: [id number] Report ID: [id number]
[2017-11-22] MEDS: PIPER/TAZO/NS 2.25gm 2.25 GM/50 ML BAG IVPB SCH ×3 (00:58→17:34)
--- NOTE | 2017-11-22 02:17 | PN ---
Date of Progress Note: 11/21/2017 Subjective: The patient is status post below-knee amputation yesterday, tolerated well. Today, had a hemodialysis management to remove 700. The patient has episode of altered mental status during the dialysis and malfunction with the clot removal from the access. Physical Examination: Vital Signs: Blood pressure 137/66, pulse of 64. Chest: Clear to auscultation. Heart: S1, S2. Systolic murmur. Abdomen: Soft, nontender, Extremities: Left below-knee amputation. Neurologic: Alert. Nonfocal. Laboratory Data: WBC 11.3, H and H 8.3/25.4, platelets 277. Sodium 141, potassium 4.3, bicarb 29, B UN 21, creatinine 5.3, calcium 9.1. Medications: Current medications the patient on include Zosyn; vancomycin; Epogen 10,000; atorvastat in; carvedilol 6.25; clonidine 0.1; lisinopril 20 b.i.d.; citalopram; Lorazepam; PhosLo 3 tablets wit h each meal; tramadol p.r.n. Assessment And Plan: 1.End-stage renal disease. Normal volume. Continue current dialysis; Sunday, Sunday, Sunday. 2.Secondary hyperparathyroidism. Continue PhosLo. 3.Hypertension, controlled, optimal. Continue current dose of lisinopril. 4.Anemia of chronic kidney disease. Continue Epogen. 5.Gangrenous toe. Status post below-knee amputation. Follow up with the Surgery. Continue current antibiotic. Gram stain growing Proteus mirabilis, resistant to ampicillin, sensitive to Zosyn; we will continue. 6.Diabetes as by primary. MARY/JUAN JL Voice ID: [id number] Report ID: [id number]
[2017-11-22 05:31] LABS: Absolute Lymphocytes (CBC) 1.2 K/uL (0.7-4.9); Absolute Monocytes 1.1 K/uL (0.1-1.3); Absolute Neutrophil 9.5 K/uL (1.8-8.0); Basophils % 0.7 % (0-1.3); Hematocrit 23.6 % (36.0-45.0); Lymphocytes % 10.1 % (15.3-44.8); MCH 30.3 pg (27.0-35.0); MCV 92.2 fL (80-100); MPV 8.4 fL (7.6-11.3); Monocytes % 8.8 % (3.3-12.3); RBC Red Blood Cell Count 2.56 M/uL (3.86-4.86)
[2017-11-22 06:00] LABS: Potassium 3.9 mmol/L (3.5-5.1)
[2017-11-22] MEDS: INSULIN -REGULAR HUMAN 50 UNIT/0.5 ML ML SQ SCH ×4 (07:30→21:00)
[2017-11-22] MEDS: LISINOPRIL 20 MG TAB PO SCH ×2 (08:36→21:52)
[2017-11-22] MEDS: TRAMADOL HCL 50 MG TAB PO PRN (08:36)
[2017-11-22] MEDS: CITALOPRAM 10 MG TABLET PO SCH (08:36)
[2017-11-22] MEDS: CA ACETATE 667 MG CAP PO SCH ×3 (08:36→21:53)
[2017-11-22] MEDS: CARVEDILOL 3.125 MG TAB PO SCH ×2 (08:37→17:33)
[2017-11-22] MEDS ORDERED: NA CHLORIDE 0.9% 250 ML ONE (11:13)
[2017-11-22] MEDS ORDERED: MELOXICAM 7.5 MG TAB PO ONE (12:00)
[2017-11-22] MEDS: MEPERIDINE HCL 50 MG/ML AMP IV PRN (13:59)
[2017-11-22] MEDS: PRASUGREL (EFFIENT) 10 MG TAB PO SCH (17:34)
--- NOTE | 2017-11-22 21:04 | PN ---
Date of Progress Note: 11/22/2017 The patient has dropped below appropriate level for hemoglobin, nephrology transfused, blood pressure still low. Her beta [place] dose will be decreased. Discussion with Cardiology in regard to her bl ood thinners due to the cardiac status, it is felt that when she has the transfusion should be restar geovanna, this will be done. Possibility of transfer to floor care will be considered later on today. HR/MODL Voice ID: [id number] Report ID: [id number]
[2017-11-22] MEDS: COLLAGENASE 30 GM OINTMENT TOP SCH (21:51)
[2017-11-22] MEDS: QUETIAPINE 50 MG PO SCH (21:52)
[2017-11-22] MEDS: LATANOPROST OPTH SCH (21:52)
[2017-11-22] MEDS: ATORVASTATIN 80 MG TAB PO SCH (21:53)
[2017-11-23] MEDS: TRAMADOL HCL 50 MG TAB PO PRN ×4 (01:20→21:19)
[2017-11-23] MEDS: PIPER/TAZO/NS 2.25gm 2.25 GM/50 ML BAG IVPB SCH ×3 (01:21→16:23)
--- NOTE | 2017-11-23 02:30 | PN ---
Date of Progress Note: 11/22/2017 Chief Complaint: End-stage renal disease. History Of Present Illness: The patient was dialyzed yesterday and today, the patient received blood transfusion and blood pressure medications were on hold due to borderline hypotension. The patient remains hemodynamically stable, is responding to voice and follows commands. Review of Systems: Denies fever, chills. Physical Examination: Lungs: Clear to auscultation bilaterally. Heart: S1, S2. Abdomen: Soft, benign. Extremities: Left below-knee amputation, dressing in place. Impression And Plan: 1.End-stage renal disease, volemia, electrolytes, and azotemia, controlled. 2.Dialysis will be scheduled for tomorrow. 3.Secondary hyperparathyroidism. Monitor phosphorus level. Continue PhosLo. 4.Hypertension. Blood pressure was on low side and blood pressure medication currently on hold and adjusted. 5.Gangrenous toes, status post below-knee amputation. Continue wound care and continue Zosyn accord ing to sensitivities. 6.Diabetes mellitus. Continue insulin per sliding scale. RINA/MODL Voice ID: [id number] Report ID: [id number]
[2017-11-23] MEDS: CARVEDILOL 3.125 MG TAB PO SCH ×2 (06:30→17:30)
[2017-11-23] MEDS: INSULIN -REGULAR HUMAN 50 UNIT/0.5 ML ML SQ SCH ×4 (07:30→21:00)
[2017-11-23] MEDS: LISINOPRIL 20 MG TAB PO SCH ×2 (09:00→19:49)
[2017-11-23] MEDS: COLLAGENASE 30 GM OINTMENT TOP SCH (09:00)
[2017-11-23] MEDS: CA ACETATE 667 MG CAP PO SCH ×3 (09:22→17:29)
[2017-11-23] MEDS: CITALOPRAM 10 MG TABLET PO SCH (09:22)
[2017-11-23] MEDS: PRASUGREL (EFFIENT) 10 MG TAB PO SCH (10:30)
[2017-11-23] MEDS: LATANOPROST OPTH SCH (19:48)
[2017-11-23] MEDS: ATORVASTATIN 80 MG TAB PO SCH (19:49)
[2017-11-23] MEDS: QUETIAPINE 50 MG PO SCH (19:49)
--- NOTE | 2017-11-23 20:19 | PN ---
Date of Progress Note: 11/23/2017 Subjective: The patient is seen and examined. Chart reviewed and case discussed with RN and Dr. Chi. The patient is under Dr. Lema. The patient has been transferred to hospitalist service [facility] Dr. Lema is out of town until Sunday. The patient is doing well in the ICU. Did have some ep isodes of confusion overnight. Going for dialysis today. The patient denies any significant amount of pain. Review of Systems: Negative except as above. Medications: List reviewed. Physical Examination: Vital Signs: Temperature 98, heart rate 65, blood pressure 116/60, respirations 16, O2 100% on room air. General: Awake, alert, oriented x2, not in acute distress. Elderly female. CV: S1, S2. Peripheral pulses weak bilaterally. Respiratory: Moving air well bilaterally. No wheezing. Gastrointestinal: Abdomen is soft, nontender, nondistended. Positive bowel sounds. Extremities: No clubbing, cyanosis, edema. Musculoskeletal: Left BKA. Skin: Left BKA stump bandaged. Neurologic: Nonfocal. Laboratory Data: Glucose 120/151. Wound from the toe is growing out Proteus vulgaris. Assessment And Plan: An 82-year-old female with: 1.Left fourth and fifth toe gangrene with cellulitis, status post left BKA. Appreciate Dr. Rondon 's input. 2.Severe peripheral vascular disease, status post stent. 3.Coronary artery disease, resighini artery and resighini heart without angina, status post stents. Sylwia nue blood thinner. 4.Continue on hemodialysis. 5.Gastrointestinal and deep venous thrombosis prophylaxis addressed. 6.Acute blood loss anemia, transfused. Monitor H and H. Plan: Step down from ICU. SA/MODL Voice ID: [id number] Report ID: [id number]
[2017-11-24] MEDS ORDERED: VANCOMYCIN 500 MG/VIAL ONE (00:44)
[2017-11-24] MEDS: EPOETIN ALFA 10,000 UNIT/ML VIAL IV SCH (01:52)
[2017-11-24] MEDS: PIPER/TAZO/NS 2.25gm 2.25 GM/50 ML BAG IVPB SCH ×3 (02:20→17:17)
[2017-11-24] MEDS: MEPERIDINE HCL 50 MG/ML AMP IV PRN (03:33)
[2017-11-24] MEDS ORDERED: NA CHLORIDE 0.9% 100 ML ONE (03:40)
--- NOTE | 2017-11-24 04:05 | PN ---
Date of Progress Note: 11/23/2017 Subjective: The patient was admitted with gangrenous toe status post total knee amputation. Physical Examination: Vital Signs: When I saw the patient, blood pressure 142/80, pulse of 88. Chest: Clear to auscultation. Heart: S1, S2. Regular. Abdomen: Soft, nontender. Extremities: Left below-knee amputation. Laboratory Data: The patient's H and H 7.7/23.6, sodium of 138, potassium 3.9, bicarb 30, BUN 21, cr eatinine 4.7, calcium 9.2. Medications: Current medications include 1.Zosyn. 2.Vancomycin. 3.Epogen. 4.Carvedilol 3.125 b.i.d. 5.Clonidine 0.1 p.r.n. 6.Lisinopril 20 b.i.d. 7.Citalopram. 8.Lorazepam. 9.PhosLo. 10.Tramadol. Assessment And Plan: 1.End-stage renal disease. We will continue the patient on dialysis, Sunday, Sunday, Sunday. We will schedule for dialysis today. 2.Hypertension, controlled, optimal. Continue current medication. 3.Secondary hypercholesteremia. 4.Anemia. Continue Epogen. 5.Gangrenous toe status post below-knee amputation. Continue antibiotic. We will follow up with Rosanna jade. The patient's case is discussed with family of the by bedside, verbalized understanding and agreed on the plan. JOHNNY Voice ID: [id number] Report ID: [id number]
[2017-11-24] MEDS: CARVEDILOL 3.125 MG TAB PO SCH ×2 (05:24→17:17)
[2017-11-24] MEDS: INSULIN -REGULAR HUMAN 50 UNIT/0.5 ML ML SQ SCH ×4 (07:30→21:00)
[2017-11-24] MEDS: CA ACETATE 667 MG CAP PO SCH ×3 (08:18→17:00)
[2017-11-24] MEDS: CITALOPRAM 10 MG TABLET PO SCH (08:18)
[2017-11-24] MEDS: LISINOPRIL 20 MG TAB PO SCH ×2 (08:18→21:20)
[2017-11-24] MEDS: TRAMADOL HCL 50 MG TAB PO PRN ×2 (08:19→12:40)
[2017-11-24] MEDS: COLLAGENASE 30 GM OINTMENT TOP SCH (08:28)
[2017-11-24] MEDS: PRASUGREL (EFFIENT) 10 MG TAB PO SCH (11:06)
--- NOTE | 2017-11-24 12:30 | P.PN ---
Subjective Date of Service: 11/24/17 Chief Complaint: Diarhea Subjective: Tolerating diet, Improving (Still has diarhea.No other complaints. S /P LAKA amputation) s/o LBKA and gangrenous toes R foot. c/o diarha. No other complaints Review of Systems General: Weakness Musculoskeletal: Leg Pain Physical Examination - Vital Signs Temperature: 97.7 F Blood Pressure: 151/75 Pulse: 81 Respirations: 19 Pulse Ox (%): 94 - Physical Exam General: Alert, Oriented x3 Neck: Supple Respiratory: Clear to auscultation bilaterally - Studies Microbiology Data (last 24 hrs): 11/19/17 13:40 Wound - Left Foot Gram Stain - Final 11/19/17 13:40 Wound - Left Foot Anaerobic Culture - Final NO ANAEROBES GROWN. Assessment & Plan - Problems (Diagnosis) (1) Diarrhea Current Visit: Yes Status: Acute Plan: c/o dairhea. C def pending. Qualifiers: Diarrhea type: unspecified type Qualified Code(s): R19.7 - Diarrhea, unspecified (2) PVD (peripheral vascular disease) Onset Date: 06/28/17 Current Visit: No Status: Acute Plan: s/p amputaton and gangerene of the left foot. proteus isolated. Cw Zojohnathan. Stable tx to floor. Change to Dialudid, D/C Demerol due to renal fialure
[2017-11-24] MEDS: HYDROCODONE/APAP 7.5/325 MG TAB PO PRN (15:40)
[2017-11-24] MEDS: metroNIDAZOLE 500 MG TABLET PO SCH ×2 (15:41→21:20)
[2017-11-24] MEDS: ATORVASTATIN 80 MG TAB PO SCH (21:20)
[2017-11-24] MEDS: QUETIAPINE 50 MG PO SCH (21:21)
[2017-11-24] MEDS: LATANOPROST OPTH SCH (21:22)
--- NOTE | 2017-11-25 00:25 | PN ---
Date of Progress Note: 11/24/2017 Subjective: The patient is doing better. Blood pressure maintained good. Status post dialysis yest erday. Tolerated dialysis. No fluid removal. Physical Examination: Vital Signs: When I saw the patient, blood pressure of 142/76, pulse of 88. Chest: Clear to auscultation. Heart: S1, S2. Systolic murmur. Abdomen: Soft, nontender. Extremities: Left below-knee amputation. Laboratory Data: H and H 9.2/32. Sodium 138, potassium 3.9, bicarb 30, BUN 21, creatinine 0.7, calc ium 9.2. Medications: Current medications the patient on it includes: 1.Metronidazole. 2.Zosyn. 3.Vancomycin. 4.Epogen. 5.Clonidine 0.1 t.i.d. p.r.n. 6.Lisinopril 20 b.i.d. 7.Citalopram. 8.Lorazepam. 9.PhosLo. Assessment And Plan: 1.End-stage renal disease. We will continue the patient on dialysis Sunday, Sunday, Sunday. 2.Secondary hyperparathyroidism, stable. Continue PhosLo. 3.Anemia. Continue p.r.n. transfusion. Continue Epogen. 4.Foot infection status post below-knee amputation. Follow up with Surgery. 5.Diarrhea. Possible Clostridium difficile. I will start the patient on Flagyl. JOHNNY Voice ID: [id number] Report ID: [id number]
[2017-11-25] MEDS: PIPER/TAZO/NS 2.25gm 2.25 GM/50 ML BAG IVPB SCH ×2 (00:37→09:00)
[2017-11-25] MEDS ORDERED: SODIUM CHLORIDE 0.9% 10ML INJ IV PRN (04:06)
[2017-11-25] MEDS ORDERED: MAGNES/ALUMIN/SIMET 30ML UCUP PO PRN (04:07)
[2017-11-25] MEDS: ONDANSETRON 4 MG/2 ML VIAL IV PRN ×3 (04:17→13:50)
[2017-11-25 05:24] LABS: Absolute Lymphocytes (CBC) 0.7 K/uL (0.7-4.9); Absolute Monocytes 0.7 K/uL (0.1-1.3); Absolute Neutrophil 11.6 K/uL (1.8-8.0); Basophils % 0.5 % (0-1.3); Eosinophils % 2.5 % (0-4.4); Hematocrit 30.6 % (36.0-45.0); Lymphocytes % 4.9 % (15.3-44.8); MCH 30.7 pg (27.0-35.0); MPV 8.7 fL (7.6-11.3); Monocytes % 5.4 % (3.3-12.3); RBC Red Blood Cell Count 3.29 M/uL (3.86-4.86)
[2017-11-25] MEDS: CARVEDILOL 3.125 MG TAB PO SCH (05:45)
[2017-11-25 05:57] LABS: Albumin 2.2 g/dL (3.4-5.0); Bilirubin Total 0.6 mg/dL (0.2-1.0); Magnesium 1.9 mg/dL (1.8-2.4); Phosphorus 1.2 mg/dL (2.5-4.9); Potassium 3.7 mmol/L (3.5-5.1); Protein, Total 6.4 g/dL (6.4-8.2)
[2017-11-25 06:11] LABS: Blood Morphology Comment NOTED (NOT SEEN); Burr Cells 1+; Ovalocytes 2+; Platelet Estimate ADEQ
[2017-11-25] MEDS: INSULIN -REGULAR HUMAN 50 UNIT/0.5 ML ML SQ SCH ×4 (07:30→21:00)
[2017-11-25] MEDS: PANTOPRAZOLE 40 MG INJ IVP SCH ×2 (08:36→21:11)
[2017-11-25] MEDS: CA ACETATE 667 MG CAP PO SCH (09:45)
[2017-11-25] MEDS: CITALOPRAM 10 MG TABLET PO SCH (09:47)
[2017-11-25] MEDS: LISINOPRIL 20 MG TAB PO SCH ×2 (09:48→21:08)
[2017-11-25] MEDS: metroNIDAZOLE 500 MG TABLET PO SCH (09:49)
[2017-11-25] MEDS: PRASUGREL (EFFIENT) 10 MG TAB PO SCH (09:59)
[2017-11-25] MEDS: COLLAGENASE 30 GM OINTMENT TOP SCH (10:39)
[2017-11-25] MEDS ORDERED: HYDROMORPHONE HCL 1 MG/ML INJ IV PRN (10:48)
[2017-11-25] MEDS ORDERED: DIPHENOX/ATROP SULF 1 TAB PO PRN (10:50)
--- NOTE | 2017-11-25 10:52 | P.PN ---
Subjective Date of Service: 11/25/17 Chief Complaint: Nicolerhea Patient is still complaining of for diarrhea and epigastric discomfort in addition to pain from her amputation Review of Systems General: Weakness Gastrointestinal: Abdominal Pain, Diarrhea Musculoskeletal: Leg Pain Physical Examination - Vital Signs Temperature: 98.1 F Blood Pressure: 173/78 Pulse: 79 Respirations: 20 Pulse Ox (%): 92 - Physical Exam General: Alert, Oriented x3 Respiratory: Clear to auscultation bilaterally Cardiovascular: No edema, Normal S1 S2 Gastrointestinal: Normal bowel sounds, Soft and benign, No tenderness - Studies Laboratory Data (last 24 hrs) 11/25/17 05:12: Sodium 138, Potassium 3.7, BUN 20 H, Creatinine 5.20 H*, Glucose 153 H, Phosphorus 1.2 L, Magnesium 1.9, Total Bilirubin 0.6, AST 15, ALT 16, Alkaline Phosphatase 69 11/25/17 05:12: WBC 13.4 H, Hgb 10.1 L, Hct 30.6 L D, Plt Count 280 D Microbiology Data (last 24 hrs): 11/23/17 22:55 Stool Clostridium difficile Toxin Assay - Final Assessment & Plan - Problems (Diagnosis) (1) Diarrhea Current Visit: Yes Status: Acute Plan: Patient still continues to have diarrhea C. difficile negative Dc Flagyl Qualifiers: Diarrhea type: unspecified type Qualified Code(s): R19.7 - Diarrhea, unspecified (2) PVD (peripheral vascular disease) Onset Date: 06/28/17 Current Visit: No Status: Acute Plan: Patient has significant pain I have added Dilaudid continue with p.o. meds continue with present antibiotic blood pressure is mildly elevated
[2017-11-25] MEDS: Levofloxacin 250mg IV 250 MG/50 ML BAG IV SCH (12:36)
[2017-11-25] MEDS: HYDROCODONE/APAP 7.5/325 MG TAB PO PRN (13:49)
--- NOTE | 2017-11-25 16:46 | PN ---
Date of Progress Note: 11/25/2017 Subjective: The patient complaining from diarrhea and abdominal cramps, yesterday had dialysis. Physical Examination: Vital Signs: Blood pressure 158/78, afebrile. Chest: Clear to auscultation. Heart: S1, S2. Regular. Abdomen: Soft. Nontender. Extremities: Left below-knee amputation. Laboratory Data: H and H 10.1/30.6, sodium 138, potassium 3.7, bicarb 31, BUN 20, creatinine 5.2, ca lcium 9.2, phosphor 1.2. Medications: Current medications the patient on include: 1.Epogen. 2.Zosyn. 3.Vancomycin. 4.Atorvastatin. 5.Carvedilol 3.125. 6.Lisinopril 20. 7.Citalopram. 8.Lorazepam. 9.Tramadol. Culture growing Proteus mirabilis, sensitive to quinolone and Zosyn. Assessment And Plan: 1.End-stage renal disease. We will maintain the patient on dialysis, Sunday, Sunday, Sunday. Sc heduled for dialysis tomorrow. 2.Hypertension, uncontrolled. I am going to increase carvedilol. 3.Foot infection status post transmetatarsal amputation. Culture of Proteus mirabilis, giving the r esist of diarrhea. I am going to stop the current antibiotic. I will follow up culture. We will place the patient on Levaquin 250 daily and we will follow up the patient. JOHNNY Voice ID: [id number] Report ID: [id number]
[2017-11-25] MEDS: TRAMADOL HCL 50 MG TAB PO PRN ×2 (17:07→21:08)
[2017-11-25] MEDS: CARVEDILOL 6.25 MG TAB PO SCH (17:11)
[2017-11-25] MEDS: ATORVASTATIN 80 MG TAB PO SCH (21:11)
[2017-11-25] MEDS: QUETIAPINE 50 MG PO SCH (21:12)
[2017-11-25] MEDS: LATANOPROST OPTH SCH (21:12)
[2017-11-26] MEDS: HYDROCODONE/APAP 7.5/325 MG TAB PO PRN ×4 (05:01→21:12)
[2017-11-26] MEDS: CARVEDILOL 6.25 MG TAB PO SCH ×2 (05:01→16:52)
[2017-11-26] MEDS: INSULIN -REGULAR HUMAN 50 UNIT/0.5 ML ML SQ SCH ×5 (08:43→20:59)
[2017-11-26] MEDS: PANTOPRAZOLE 40 MG INJ IVP SCH (08:44)
[2017-11-26] MEDS: LISINOPRIL 20 MG TAB PO SCH ×2 (08:44→21:06)
[2017-11-26] MEDS: CITALOPRAM 10 MG TABLET PO SCH (08:45)
[2017-11-26] MEDS: COLLAGENASE 30 GM OINTMENT TOP SCH (08:50)
[2017-11-26] MEDS: PRASUGREL (EFFIENT) 10 MG TAB PO SCH (08:52)
--- NOTE | 2017-11-26 11:15 | P.PN ---
Subjective Date of Service: 11/26/17 Chief Complaint: Diarhea Subjective: Improving (Patient has no issues with the L BKA site) Physical Examination - Vital Signs Temperature: 97.1 F Blood Pressure: 144/69 Pulse: 72 Respirations: 16 Pulse Ox (%): 96 - Physical Exam General: Alert, In no apparent distress, Cooperative Musculoskeletal: Other (Left BKA site is clean and dry, flaps viable, HAZEL in place) Assessment And Plan - Current Problems (Diagnosis) (1) Below knee amputation status Current Visit: Yes Status: Acute Plan: - dressings changed, stump is viable - HAZEL removed with minimal output - continue immobilizer, elevation, dressing changes daily
[2017-11-26] MEDS: Levofloxacin 250mg IV 250 MG/50 ML BAG IV SCH (12:00)
--- NOTE | 2017-11-26 12:42 | PN ---
Date of Progress Note: 11/26/2017 Subjective: The patient seen and examined, chart reviewed, and case discussed with RN. The patient in dialysis today. Somewhat emotionally labile, tearful, stating that she is hurting. Review of Systems: Negative except as above. Medications: List reviewed. Objective: Vital Signs: Temperature 97.1, heart rate 72, blood pressure 144/69, respirations 16, O2 96% on room air. General: Awake, alert, oriented x3. Some mild distress. Elderly female, ill-appearing. CV: S1 and S2. No murmurs. Peripheral pulses on the right lower extremity weak. Respiratory: Moving air well bilaterally. No wheezing. Gastrointestinal: Abdomen is soft, nontender, nondistended. Positive bowel sounds. Extremities: No clubbing, cyanosis, or edema on the lower extremity. Musculoskeletal: Left BKA. Skin: left BKA incision site bandaged. No oozing. Right foot second and third toe ulceration. Neurologic: Nonfocal. Laboratory Data: Glucose 88 and 91. Otherwise, labs are pending. Wound culture growing out Proteus vulgaris from the toe. C. diff assay is negative. 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 Appreciate Dr. Bond's input. Dres sing changed today. Tissues viable. We will continue with PT. 2.End-stage renal disease, on hemodialysis. The patient being dialyzed today. 3.Diarrhea. Clostridium difficile ruled out, improving. We will continue with Lactinex. 4.Severe peripheral vascular disease status post stent. 5.Coronary artery disease, [place] artery, [place] heart without angina, status post stent. Continue blood thinner. 6.Acute blood loss anemia. Transfuse. H and H stable. 7.Right foot second and third digit ulceration. Continue wound care. Plan: Continue antibiotics. The patient currently growing Proteus vulgaris. She will likely need 2 -4 weeks of IV antibiotics. Service will be switched over to Dr. Lema tomorrow at 7:00 a.m. once he is back in town. /MICHAEL Voice ID: [id number] Report ID: [id number]
[2017-11-26] MEDS: levoFLOXacin 250 MG TAB PO SCH (15:36)
[2017-11-26] MEDS: PANTOPRAZOLE 40MG TABLET PO SCH (15:36)
--- NOTE | 2017-11-26 20:04 | PN ---
Date of Progress Note: 11/26/2017 Chief Complaint: End-stage renal disease. Subjective: The patient was scheduled to have dialysis with ultrafiltration. Dialysis was well tole rated. The patient has severe peripheral vascular disease. She underwent BKA for diabetic foot infe ction with gangrene. Review of Systems: Denies PND, orthopnea. Physical Examination: Lungs: Clear to auscultation bilaterally. Heart: S1, S2. Abdomen: Soft. Benign. Extremities: Left below-knee amputation. Laboratory Data: Potassium 3.7, BUN 20, creatinine 5.2, phosphorus 1.2, calcium 9.2. Impression And Plan: 1.End-stage renal disease. Continue dialysis 3 times per week. 2.Diarrhea, resolved. The patient is undergoing workup to rule out C. diff colitis. 3.Status post BKA and diabetic foot infection. Continue antibiotics. Cultures show proteus mirabil is. The patient is on Levaquin, adjust antibiotics according to sensitivity panel. 4.Anemia chronic kidney disease. Monitor hemoglobin level. Adjust JESSICA. 5.Renal osteodystrophy. Phosphorus level below normal ranges. Replacement as needed and advance di et as tolerated. EB/MODL Voice ID: [id number] Report ID: [id number]
[2017-11-26] MEDS: LATANOPROST OPTH SCH (21:00)
[2017-11-26] MEDS: ATORVASTATIN 80 MG TAB PO SCH (21:06)
[2017-11-26] MEDS: QUETIAPINE 50 MG PO SCH (21:07)
[2017-11-27 05:12] LABS: Absolute Lymphocytes (CBC) 0.9 K/uL (0.7-4.9); Absolute Monocytes 0.8 K/uL (0.1-1.3); Absolute Neutrophil 9.5 K/uL (1.8-8.0); Basophils % 0.6 % (0-1.3); Eosinophils % 3.3 % (0-4.4); Hematocrit 29.6 % (36.0-45.0); Lymphocytes % 7.8 % (15.3-44.8); MCH 30.5 pg (27.0-35.0); MCV 93.7 fL (80-100); Monocytes % 6.6 % (3.3-12.3); RBC Red Blood Cell Count 3.16 M/uL (3.86-4.86)
[2017-11-27] MEDS: CARVEDILOL 6.25 MG TAB PO SCH ×2 (05:15→17:11)
[2017-11-27] MEDS: HYDROCODONE/APAP 7.5/325 MG TAB PO PRN ×2 (05:16→09:26)
[2017-11-27 05:33] LABS: Bilirubin Total 0.5 mg/dL (0.2-1.0); Phosphorus 1.7 mg/dL (2.5-4.9); Potassium 3.9 mmol/L (3.5-5.1); Protein, Total 5.9 g/dL (6.4-8.2)
[2017-11-27] MEDS: INSULIN -REGULAR HUMAN 50 UNIT/0.5 ML ML SQ SCH ×4 (07:30→20:58)
[2017-11-27] MEDS: PANTOPRAZOLE 40MG TABLET PO SCH ×2 (09:12→17:12)
[2017-11-27] MEDS: CHOLESTYRAMINE/ASP 4 GM/PKT PO SCH (09:12)
[2017-11-27] MEDS: levoFLOXacin 250 MG TAB PO SCH (09:13)
[2017-11-27] MEDS: LISINOPRIL 20 MG TAB PO SCH ×2 (09:14→21:01)
[2017-11-27] MEDS: CITALOPRAM 10 MG TABLET PO SCH (09:15)
[2017-11-27] MEDS: PRASUGREL (EFFIENT) 10 MG TAB PO SCH (09:15)
[2017-11-27] MEDS: COLLAGENASE 30 GM OINTMENT TOP SCH (09:19)
[2017-11-27] MEDS: HYDROMORPHONE HCL 2 MG/ML inj IV PRN (13:55)
--- NOTE | 2017-11-27 20:10 | PN ---
Date of Progress Note: 11/27/2017 Subjective: The patient doing well. Diarrhea has been subsided. Complaining of some itching. Objective: Vital Signs: Blood pressure 176/71, pulse of 79. Earlier blood pressure was under 150. Chest: Clear to auscultation. Heart: S1, S2. Regular. Abdomen: Soft. Nontender. Extremity: Left below-knee amputation. Laboratory Data: H and H 9.6/29.6. Sodium 139, potassium 3.9, bicarb 28, BUN 16, creatinine 4.7, ca lcium 8.5, phosphorus 1.7. Current Medications: The patient on is include: 1.Epogen. 2.Levaquin. 3.Carvedilol 6.25. 4.Clonidine p.r.n. 5.Lisinopril 20. 6.Citalopram. 7.Zofran. 8.Pantoprazole. 9.Tramadol. Assessment And Plan: 1.End-stage renal disease, stable. We will continue dialysis Sunday, Sunday, Sunday. The patien t is going to be scheduled for dialysis tomorrow, and we will follow up. 2.Hypertension, controlled, optimal. We will accept current blood pressure as the patient had occas ional low blood pressure on dialysis. 3.Peripheral vascular disease, status post below-knee amputation for foot infection. Continue Levaq uin as the culture grew Proteus mirabilis. 4.Diarrhea secondary to antibiotic, resolved. 5.Secondary hyperparathyroid. Phosphorus on the lower side. Discontinue all binder. We will sophie nue. 6.Anemia of chronic kidney disease. Continue Epogen. 7.Deconditioning follow up with the primary, PT/OT. Consult for rehab. MARY/MODL Voice ID: [id number] Report ID: [id number]
[2017-11-27] MEDS: LATANOPROST OPTH SCH (21:00)
[2017-11-27] MEDS: ATORVASTATIN 80 MG TAB PO SCH (21:01)
[2017-11-27] MEDS: QUETIAPINE 50 MG PO SCH (21:02)
[2017-11-28] MEDS: ONDANSETRON 4 MG/2 ML VIAL IV PRN ×2 (01:30→14:09)
[2017-11-28 05:13] VITALS: BMI 28.5
[2017-11-28] MEDS: HYDROCODONE/APAP 7.5/325 MG TAB PO PRN ×2 (05:13→12:09)
[2017-11-28] MEDS: CARVEDILOL 6.25 MG TAB PO SCH ×2 (05:31→16:49)
[2017-11-28] MEDS: INSULIN -REGULAR HUMAN 50 UNIT/0.5 ML ML SQ SCH ×3 (07:30→16:30)
[2017-11-28] MEDS: CHOLESTYRAMINE/ASP 4 GM/PKT PO SCH (08:41)
[2017-11-28] MEDS: PANTOPRAZOLE 40MG TABLET PO SCH ×2 (08:42→16:50)
[2017-11-28] MEDS: LISINOPRIL 20 MG TAB PO SCH (08:42)
[2017-11-28] MEDS: CITALOPRAM 10 MG TABLET PO SCH (08:43)
[2017-11-28] MEDS: PRASUGREL (EFFIENT) 10 MG TAB PO SCH (08:43)
[2017-11-28] MEDS: levoFLOXacin 250 MG TAB PO SCH (08:43)
[2017-11-28] MEDS: COLLAGENASE 30 GM OINTMENT TOP SCH (08:47)
[2017-11-28] MEDS: HYDROMORPHONE HCL 2 MG/ML inj IV PRN (09:18)
[2017-11-28] MEDS ORDERED: MANNITOL 25% 12.5 GM/50 ML VIAL IV PRN (11:21)
[2017-11-28] MEDS ORDERED: LORAZEPAM 1 MG TABLET PO PRN (11:56)
[2017-11-28] MEDS ORDERED: ALBUMIN HUMAN 25% 50 ML IV SCH (12:00)
[2017-11-28] MEDS: EPOETIN ALFA 10,000 UNIT/ML VIAL IV SCH (12:15)
[2017-11-28 13:10] VITALS: TEMP 97.4
--- NOTE | 2017-11-28 15:11 | PN ---
Date of Progress Note: 11/28/2017 Diagnosis: Left foot gangrene, status post left below-knee amputation. Subjective: The patient is doing well. No complaint on the foot amputation area. Review of Systems: Ten points otherwise unremarkable. Physical Examination: General: The patient is awake and alert. No distress. Abdomen: Soft and depressible. Benign. Extremity: Below-knee amputation looks intact. Flaps are intact. No cellulitis present. Incisions are intact. No cyanosis. Plan: Continue rehabilitation and medical optimization. The patient may be discharged home or to re hab whenever the medical doctor believes is safe from the medical standpoint. GALINDO/MICHAEL Voice ID: [id number] Report ID: [id number]
[2017-11-28 16:59] VITALS: BP 112/68
[2017-11-28 18:10] VITALS: O2SAT 98
--- NOTE | 2017-11-28 19:32 | PN ---
Date of Progress Note: 11/27/2017 The patient is progressing quite nicely post BKA, although she complains of significant pain episodes . She, in fact, seems out of proportion to her actual responsiveness, as when she starts talking it seems to dissipate some, although obviously she does have some pain. As far as her right leg is conc erned, she states this too has been worse, but in an actual fact, areas of necrosis have stabilized i f not improved somewhat on the antibiotic treatment. She continues to undergo dialysis. Blood work is basically stable as is her vital signs. Disposition will be made with PT, rehab, and/or SNF units . This probably will be arranged in the next 24 to 48 hours. HR/MODL Voice ID: [id number] Report ID: [id number]
--- NOTE | 2017-11-28 20:04 | PN ---
Date of Progress Note: 11/28/2017 The patient is basically status quo. She has been accepted at local SNF unit. This will occur this afternoon. She has been under the 21-day scenario. Issues were discussed with the family as far as physician and placement following this period of time, obviously depending on the circumstances, vari ous possibilities exist. She was discharged on same medications she has been on here and continue wi th her dialysis. HR/MODL Voice ID: [id number] Report ID: [id number]
--- NOTE | 2017-11-28 22:08 | PN ---
Date of Progress Note: 11/28/2017 Subjective: The patient has no event, feeling okay. Physical Examination: Vital Signs: Blood pressure of 151/71, pulse of 77. Chest: Clear to auscultation. Heart: S1, S2. Systolic murmur. Abdomen: Soft, nontender. Extremities: Left below-knee amputation. Laboratory Data: H and H 9.6/29.6. Sodium 139, potassium 3.9, bicarb 28, BUN 16, creatinine 4.7, ca lcium 8.5. Current Medications: 1.Epogen. 2.Atorvastatin. 3.Carvedilol 6.25. 4.Clonidine p.r.n. 5.Lisinopril 20 b.i.d. 6.Citalopram. 7.Lorazepam. 8.Insulin. 9.Gabapentin. Assessment And Plan: 1.End-stage renal disease, normal volume. We will continue dialysis. The patient is going to be sc heduled for dialysis tomorrow. 2.Hypertension, controlled, optimal. Continue current medication. 3.Anemia of chronic kidney disease. Continue Epogen. 4.Foot infection, status post amputation. Follow up with PT/OT. The patient is going to be dischar ged to rehab. MARY/MICHAEL Voice ID: [id number] Report ID: [id number]
--- NOTE | 2017-11-29 20:47 | PN ---
Date of Progress Note: 11/28/2017 The patient basically is status quo, feels she is ready to be transferred to SNF for further treatmen t and rehab and depending on our progress is perhaps physical therapy units at a later date. She is to continue on her dialysis. She has been somewhat emotional and Ativan was added to her regimen. B lood pressure is still labile. She is especially hypotensive after her dialysis, somewhat borderline hypertensive in between. Wounds seem to be healing okay and her vital signs otherwise are stable. Arrangements were been made to transfer to local SNF this afternoon and this will be done. HR/MODL Voice ID: [id number] Report ID: [id number]
== END 2017-11-28 18:37 | DRG 239 ==
LOC: 4TH 12:10 → 3RD-ICU 11-20 14:58 → INP 11-20 15:01 → 3RD-ICU 11-20 15:34 → 2ND 11-24 13:51
PROVIDERS: ADMIT Family Medicine; ATTEND Family Medicine
PROC: 5A1D70Z Performance of Urinary Filtration, Intermittent, Less than 6 Hours Per Day (ICD-10-PCS; 2017-11-19)
PROC: 30233N1 Transfusion of Nonautologous Red Blood Cells into Peripheral Vein, Percutaneous Approach (ICD-10-PCS; 2017-11-19)
PROC: 0Y6J0Z1 Detachment at Left Lower Leg, High, Open Approach (ICD-10-PCS; principal; 2017-11-20 11:00)
DX: E11.52 Type 2 diabetes mellitus with diabetic peripheral angiopathy with gangrene (principal); N18.6 End stage renal disease; I96 Gangrene, not elsewhere classified; N25.81 Secondary hyperparathyroidism of renal origin; K52.1 Toxic gastroenteritis and colitis; D62 Acute posthemorrhagic anemia; I13.2 Hypertensive heart and chronic kidney disease with heart failure and with stage 5 chronic kidney disease, or end stage renal disease; I50.32 Chronic diastolic (congestive) heart failure; M86.672 Other chronic osteomyelitis, left ankle and foot; E11.22 Type 2 diabetes mellitus with diabetic chronic kidney disease; Z99.2 Dependence on renal dialysis; D63.1 Anemia in chronic kidney disease; B96.4 Proteus (mirabilis) (morganii) as the cause of diseases classified elsewhere; T36.95XA Adverse effect of unspecified systemic antibiotic, initial encounter; Y92.230 Patient room in hospital as the place of occurrence of the external cause; E11.621 Type 2 diabetes mellitus with foot ulcer; L97.529 Non-pressure chronic ulcer of other part of left foot with unspecified severity; N25.0 Renal osteodystrophy; I25.10 Atherosclerotic heart disease of native coronary artery without angina pectoris; L97.519 Non-pressure chronic ulcer of other part of right foot with unspecified severity; L03.032 Cellulitis of left toe; Z95.5 Presence of coronary angioplasty implant and graft; Z95.0 Presence of cardiac pacemaker; E78.5 Hyperlipidemia, unspecified; Z95.820 Peripheral vascular angioplasty status with implants and grafts; Z88.5 Allergy status to narcotic agent; Z88.8 Allergy status to other drugs, medicaments and biological substances; E11.42 Type 2 diabetes mellitus with diabetic polyneuropathy; E11.21 Type 2 diabetes mellitus with diabetic nephropathy; E11.319 Type 2 diabetes mellitus with unspecified diabetic retinopathy without macular edema; E11.69 Type 2 diabetes mellitus with other specified complication
CPT/HCPCS: 36415; 80048; 80053; 80202; 82962; 83735; 84100; 85018; 85025; 85610; 86850; 86900; 86901; 87070; 87075; 87077; 87186; 87205; 87493; 88307; 88311; 90935; 93005; 94760; 97163; 99215; C9113; J1170; J2150; J2175; J2250; J2405; J2597; J3010; J3590; J7030; P9016; P9047; Q4081

== ENCOUNTER 2018-01-13 19:48 | Inpatient (IN) | payer OTHER ==
--- OUTSIDE RECORDS SUMMARY | 2018-01-13 19:51 | XMS REPORT | Clinical Summary ---
:1935 Author Organization [facility] Address [address] [place] [address] Care Team Providers Name Role Phone Arslan Lema MD Primary Care Provider Allergies Active Allergy Reactions Severity Noted Date Comments Ramipril 10/30/2016 Codeine GI Intolerance 10/30/2016 Propoxyphene N-Acetaminophen 10/30/2016 Hydrocodone 10/30/2016 Feels like "drunk" Morphine Itching 10/30/2016 Clopidogrel GI Intolerance 10/30/2016 Enalapril Maleate 10/30/2016 Hydrocodone-Acetaminophen 10/30/2016 Simvastatin GI Intolerance 10/30/2016 Current Medications Prescription Sig. Disp. Refills Start Date End Date Status bimatoprost (LUMIGAN) Administer 1 drop to Active 0.03 % ophthalmic drops both eyes nightly. insulin regular Inject under the skin Active (HumuLIN-R, NovoLIN-R) 3 (three) times a 100 unit/mL injection day. Per sliding scale atorvastatin (LIPITOR) Take 40 mg by mouth Active 40 MG tablet daily. hydrALAZINE Take 50 mg by mouth 3 Active (APRESOLINE) 50 MG (three) times a day. tablet lisinopril Take 20 mg by mouth 2 Active (PRINIVIL,ZESTRIL) 20 (two) times a day. mg tablet QUEtiapine (SEROquel) Take 50 mg by mouth Active 50 MG tablet nightly. gabapentin (NEURONTIN) Take 300 mg by mouth Active 300 mg capsule 2 (two) times a day. warfarin (COUMADIN) 4 Take 4 mg by mouth Active MG tablet daily. B complex-minerals Take by mouth. Active tablet calcium acetate TK 2 CS PO WITH MEALS 11 10/07/2016 Active (PHOSLO) 667 mg capsule AND 1 C PO WITH SNACK carvedilol (COREG) 6.25 Take 6.25 mg by mouth Active MG tablet 2 (two) times a day with meals. citalopram (CeleXA) 20 Take 1.5 tablets by 0 08/17/2016 Active MG tablet mouth daily. clonIDINE (CATAPRES) TK 1 T PO Q 8 H PRN 2 10/03/2016 Active 0.1 MG tablet IF SYSTOLIC BLOOD PRESSURE IS GREATER THAN 160-180 fluticasone (FLONASE) USE 1 SPRAY IEN BID 5 10/25/2016 Active 50 mcg/actuation nasal spray GÓMEZ-ACSSIA RX 1-60-300 1 tablet daily. 8 09/27/2016 Active mg-mg-mcg tablet Active Problems No known active problems Encounters Date Type Specialty Care Team Description 07/11/2017 Procedure Pass General Surgery after 01/12/2017 Social History Tobacco Use Types Packs/Day Years [...] INFLUENZA VACCINE 10/24/2017 Implants Implanted Type Area Hair Colorist Device Expiration Model / Identifier Date Serial / Lot Graft Vasclr Acuseal 40cm 6mm - [id number] - [id number] Vascular N/A: N/A W L GORE 05/19/2019 [id number] / Implanted: Qty: 1 on 11/08/2016 by Herman Fraga MD Graft [id number] / [id number] Results Not on fileafter 01/12/2017 Insurance Payer Benefit Plan / Group Subscriber ID Type Phone Address MEDICARE MEDICARE PART A AND B xxxxxxxxxx Medicare [place], [place] [phone] [address] [place] [address]
[2018-01-13 20:46] LABS: Absolute Monocytes 0.7 K/uL (0.1-1.3); Basophils % 0.8 % (0-1.3); Eosinophils % 4.4 % (0-4.4); Hematocrit 26.6 % (36.0-45.0); MCV 87.4 fL (80-100); MPV 8.8 fL (7.6-11.3); Monocytes % 7.7 % (3.3-12.3); RBC Red Blood Cell Count 3.05 M/uL (3.86-4.86)
[2018-01-13 21:16] LABS: Potassium 3.7 mmol/L (3.5-5.1)
[2018-01-13] MEDS ORDERED: HYDROCODONE/APAP 5/325 MG TAB ONE (21:41)
[2018-01-13] MEDS ORDERED: VANCOMYCIN 1 GM/250 ML BAG ONE (21:42)
--- NOTE | 2018-01-13 21:46 | ER ---
Nurse's Notes [facility] Name: Dianelys Carroll Age: 82 yrs Sex: Female : 1935 Arrival Date: 01/13/2018 Time: 19:50 Bed 18 Private MD: Diagnosis: Cellulitis of left lower limb Presentation: 01/13 19:52 Presenting complaint: EMS states: Tone up for reported amputated foot infections. ao Patient reports having amputated left foot last month. Transition of care: patient was not received from another setting of care. Onset of symptoms is unknown. Risk Assessment: Do you want to hurt yourself or someone else? Patient reports no desire to harm self or others. Initial Sepsis Screen: Does the patient meet any 2 criteria? No. Patient's initial sepsis screen is negative. Does the patient have a suspected source of infection? Yes: Skin breakdown/wound Bone or joint infection. Care prior to arrival: None. 19:52 Method Of Arrival: EMS: [facility] ao 19:52 Acuity: EFRAÍN 3 ao Historical: - Allergies: 19:59 altase; ao 19:59 clopidogrel bisulfate; ao 19:59 Codeine; ao 19:59 Demerol; ao 19:59 enalapril maleate; ao 19:59 enalaprilat dihydrate; ao 19:59 Ibuprofen; ao 19:59 OPIATES; ao 19:59 propoxyphene napsylate; ao 19:59 Ramipril; ao 19:59 Simvastatin; ao 19:59 Vioxx; ao - Home Meds: 22:59 calcium acetate oral oral [Active]; Imodium Oral [Active]; Lidocaine Viscous mucous ao membrane MM [Active]; gabapentin 300 mg Oral cap 1 cap nightly [Active]; tramadol 50 mg oral tab [Active]; Effient oral oral [Active]; carvedilol 3.125 mg oral tab [Active]; lisinopril 20 mg Oral tab 1 tab once daily [Active]; citalopram 20 mg tab once daily [Active]; novolin SS [Active]; Lipitor 40 mg Oral tab 1 tab once daily [Active]; clonidine HCl 0.1 mg Oral tab 1 tab 2 times per day [Active]; Ativan Oral [Active]; - PMHx: 19:59 Anemia; Diabetes - IDDM; Dialysis; ESRD; High Cholesterol; hypercalcemia; ao HYPERGLYCEMIA; hyperkalemia; hyperparathyroidism; Pacemaker; - PSHx: 19:59 None; ao - Immunization history:: Adult Immunizations unknown. - Social history:: Smoking status: Patient/guardian denies using tobacco. - Ebola Screening: : Patient negative for fever greater than or equal to 101.5 degrees Fahrenheit, and additional compatible Ebola Virus Disease symptoms Patient denies exposure to infectious person Patient denies travel to an Ebola-affected area in the 21 days before illness onset. - Family history:: not pertinent. - Hospitalizations: : The patient was recently seen at [facility]. Screenin:50 Abuse screen: Denies threats or abuse. Denies injuries from another. Nutritional aa1 screening: No deficits noted. Tuberculosis screening: No symptoms or risk factors identified. Fall Risk Gait- Impaired (20 pts.). Assessment: 19:50 General: Appears in no apparent distress. comfortable, Behavior is calm, cooperative, aa1 appropriate for age. Pain: Complains of pain in left leg Pain began several weeks ago after AKA sx Is continuous. Neuro: Level of Consciousness is awake, alert, obeys commands, Oriented to person, place, time, situation, Moves all extremities. Speech is normal. Respiratory: Airway is patent Respiratory effort is even, unlabored, Respiratory pattern is regular, symmetrical. GI: No signs and/or symptoms were reported involving the gastrointestinal system. : No signs and/or symptoms were reported regarding the genitourinary system. EENT: No signs and/or symptoms were reported regarding the EENT system. Derm: Skin is intact, is healthy with good turgor, Skin is pink, warm \T\ dry. Musculoskeletal: Amputation of L AKA done approx 1 month ago. Incision slightly reddened with eschar present. No drainage or odor noted at this time Circulation, motion, and sensation intact. Capillary refill < 3 seconds, Range of motion: intact in all extremities. 20:59 Reassessment: Patient appears in no apparent distress at this time. Patient and/or ao family updated on plan of care and expected duration. Pain level reassessed. 22:18 Reassessment: Patient appears in no apparent distress at this time. Patient and/or ao family updated on plan of care and expected duration. Pain level reassessed. Patient to be admitted to the hospital. Patient agree with POC. 22:46 Reassessment: Call 4th for report and nurse unavailable. Nurse to call back 10 -20 min. ao Vital Signs: 19:54 BP 111 / 56; Pulse 72; Resp 16; Temp 99.0(O); Pulse Ox 94% on R/A; Weight 77.11 kg (R); ao Height 5 ft. 1 in. (154.94 cm) (R); Pain 6/10; 20:59 BP 128 / 60; Pulse 75; Resp 16; Pulse Ox 96% on R/A; ao 21:43 BP 149 / 67; Pulse 70; Resp 16; Pulse Ox 95% on R/A; mt 22:18 BP 147 / 69; Pulse 73; Resp 16; Pulse Ox 98% on R/A; ao 19:54 Body Mass Index 32.12 (77.11 kg, 154.94 cm) ao ED Course: 19:50 Patient arrived in ED. aa1 19:50 Patient has correct armband on for positive identification. Placed in gown. Bed in low aa1 position. Call light in reach. Side rails up X2. Pulse ox on. NIBP on. 19:51 Yandel Beasley RN is Primary Nurse. ao 19:53 Pop Howard MD is Attending Physician. rn 19:54 Triage completed. ao 20:25 Arm band placed on Patient placed in an exam room, on a stretcher, on pulse oximetry, ao Patient notified of wait time. 21:45 Nisha Lee MD is Hospitalizing Provider. rn 23:27 No provider procedures requiring assistance completed. Patient admitted, IV remains in ao place. Administered Medications: 21:45 Drug: vancoMYCIN 1 grams Route: IVPB; Infused Over: 2 hrs; Site: right forearm; ao 23:29 Follow up: IV Status: Infusion continued upon admission ao 21:54 Drug: [place] 5 mg-325 mg 1 tabs Route: PO; ao 23:20 Follow up: Response: No adverse reaction ao Outcome: 21:45 Decision to Hospitalize by Provider. rn 23:27 Admitted to Tele accompanied by nurse, room 416, with chart, Report called to delicia Edwards RN 23:27 Condition: stable 23:27 Instructed on the need for admit. 23:28 Patient left the ED. ao Signatures: Ashely Castillo RN RN aa1 Pop Howard MD MD rn Ortiz, Alex, RN RN ao Thompson, Moriah pr Corrections: (The following items were deleted from the chart) 23:00 19:59 Allergies: hydrocodone bitartrate; delicia nesbitt
--- NOTE | 2018-01-13 21:46 | EDPHYS ---
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 20:16 The patient presents with pain. The complaints affect the left BKA wound. Onset: The rn symptoms/episode began/occurred at an unknown time. Modifying factors: The symptoms are alleviated by nothing. the symptoms are aggravated by nothing. Severity of symptoms: At their worst the symptoms were mild, in the emergency department the symptoms are unchanged. The patient has not experienced similar symptoms in the past. REports had BKA amputation 3-4 weeks ago, by Dr. Howard, reports has been having pain since surgery, prison/rehab sent her here because wound a little red and smelling different, unknown onset, patient reports hasn't noticed a difference, no drainage, no fever. . Historical: - Allergies: 19:59 altase; ao 19:59 clopidogrel bisulfate; ao 19:59 Codeine; ao 19:59 Demerol; ao 19:59 enalapril maleate; ao 19:59 enalaprilat dihydrate; ao 19:59 Ibuprofen; ao 19:59 OPIATES; ao 19:59 propoxyphene napsylate; ao 19:59 Ramipril; ao 19:59 Simvastatin; ao 19:59 Vioxx; ao - Home Meds: 22:59 calcium acetate oral oral [Active]; Imodium Oral [Active]; Lidocaine Viscous mucous ao membrane MM [Active]; gabapentin 300 mg Oral cap 1 cap nightly [Active]; tramadol 50 mg oral tab [Active]; Effient oral oral [Active]; carvedilol 3.125 mg oral tab [Active]; lisinopril 20 mg Oral tab 1 tab once daily [Active]; citalopram 20 mg tab once daily [Active]; novolin SS [Active]; Lipitor 40 mg Oral tab 1 tab once daily [Active]; clonidine HCl 0.1 mg Oral tab 1 tab 2 times per day [Active]; Ativan Oral [Active]; - PMHx: 19:59 Anemia; Diabetes - IDDM; Dialysis; ESRD; High Cholesterol; hypercalcemia; ao HYPERGLYCEMIA; hyperkalemia; hyperparathyroidism; Pacemaker; - PSHx: 19:59 None; ao - Immunization history:: Adult Immunizations unknown. - Social history:: Smoking status: Patient/guardian denies using tobacco. - Ebola Screening: : Patient negative for fever greater than or equal to 101.5 degrees Fahrenheit, and additional compatible Ebola Virus Disease symptoms Patient denies exposure to infectious person Patient denies travel to an Ebola-affected area in the 21 days before illness onset. - Family history:: not pertinent. - Hospitalizations: : The patient was recently seen at [facility]. ROS: 20:16 Constitutional: Negative for fever, chills, and weight loss, Eyes: Negative for injury, rn pain, redness, and discharge, Cardiovascular: Negative for chest pain, palpitations, and edema, Respiratory: Negative for shortness of breath, cough, wheezing, and pleuritic chest pain, Abdomen/GI: Negative for abdominal pain, nausea, vomiting, diarrhea, and constipation, MS/Extremity: Negative for injury and deformity, Skin: + redness to wound Neuro: Negative for headache, weakness, numbness, tingling, and seizure. Exam: 20:16 Constitutional: This is a well developed, well nourished patient who is awake, alert, rn and in no acute distress. Cardiovascular: Regular rate and rhythm Respiratory: Lungs have equal breath sounds bilaterally, clear to auscultation. No increased work of breathing, no retractions or nasal flaring. Abdomen/GI: soft, non-tender MS/ Extremity: Left BKA wound with mild erythema surrounding wound, slight odor, no drainage, no fluctuance, wound intact Vital Signs: 19:54 BP 111 / 56; Pulse 72; Resp 16; Temp 99.0(O); Pulse Ox 94% on R/A; Weight 77.11 kg (R); ao Height 5 ft. 1 in. (154.94 cm) (R); Pain 6/10; 20:59 BP 128 / 60; Pulse 75; Resp 16; Pulse Ox 96% on R/A; ao 21:43 BP 149 / 67; Pulse 70; Resp 16; Pulse Ox 95% on R/A; mt 22:18 BP 147 / 69; Pulse 73; Resp 16; Pulse Ox 98% on R/A; ao 19:54 Body Mass Index 32.12 (77.11 kg, 154.94 cm) ao MDM: 19:53 Patient medically screened. rn 21:44 Differential diagnosis: cellulitis. Data reviewed: vital signs, nurses notes, lab test rn result(s), and as a result, I will admit patient. Counseling: I had a detailed discussion with the patient and/or guardian regarding: the historical points, exam findings, and any diagnostic results supporting the discharge/admit diagnosis, lab results, the need for further work-up and treatment in the hospital. Response to treatment: the patient's symptoms have mildly improved after treatment, and as a result, I will admit patient. Admission orders: after a detailed discussion of the patient's condition and case, the admit orders are written by me. ED course: Pt with diabetes, ESRD, wound appears infected, localized, no abscess, + foul smell, elevated procalcitonin, will admit with IV abx to Dr. Brown. . 01/13 19:54 Order name: CBC with Diff; Complete Time: 21:27 rn 01/13 19:54 Order name: Basic Metabolic Panel; Complete Time: 21:27 rn 01/13 19:54 Order name: Blood Culture Adult (2) rn 01/13 19:54 Order name: Procalcitonin; Complete Time: 21:27 rn 01/13 19:54 Order name: IV Start; Complete Time: 20:25 rn Administered Medications: 21:45 Drug: vancoMYCIN 1 grams Route: IVPB; Infused Over: 2 hrs; Site: right forearm; ao 23:29 Follow up: IV Status: Infusion continued upon admission ao 21:54 Drug: [place] 5 mg-325 mg 1 tabs Route: PO; ao 23:20 Follow up: Response: No adverse reaction ao Disposition: 01/13/18 21:45 Hospitalization ordered by Nisha Lee for Inpatient Admission. Preliminary diagnosis is Cellulitis of left lower limb. - Bed requested for Telemetry/MedSurg (Inpatient). - Status is Inpatient Admission. ao - Condition is Stable. - Problem is new. - Symptoms have improved. UTI on Admission? No Signatures: Dispatcher [employer] EDMS Pop Howard MD MD rn Ortiz, Alex, RN RN ao Neo Gaines mw2 Corrections: (The following items were deleted from the chart) 22:35 21:45 Hospitalization Ordered by Nisha Lee MD for Inpatient Admission. Preliminary mw2 diagnosis is Cellulitis of left lower limb. Bed requested for Telemetry/MedSurg (Inpatient). Status is Inpatient Admission. Condition is Stable. Problem is new. Symptoms have improved. UTI on Admission? No. rn 23:00 19:59 Allergies: hydrocodone bitartrate; ao ao 23:28 22:35 01/13/2018 21:45 Hospitalization Ordered by Nisha Lee MD for Inpatient ao Admission. Preliminary diagnosis is Cellulitis of left lower limb. Bed requested for Telemetry/MedSurg (Inpatient). Status is Inpatient Admission. Condition is Stable. Problem is new. Symptoms have improved. UTI on Admission? No. mw2
--- NOTE | 2018-01-13 22:31 | P.HP ---
Certification for Inpatient Patient admitted to: Inpatient With expected LOS: >2 Midnights Practitioner: I am a practitioner with admitting privileges, knowledge of patient current condition, hospital course, and medical plan of care. Services: Services provided to patient in accordance with Admission requirements found in Title 42 Section 412.3 of the Code of Federal Regulations Patient History Date of Service: 01/13/18 Reason for admission: Left BKA surgical wound infection History of Present Illness: Ms Carroll is an 82-year-old woman with history of hypertension, end-stage renal disease on hemodialysis, diabetes mellitus, dyslipidemia who had a left BKA done about [address] Rondon. The patient was discharged head to the [facility]. Today the patient was sent to ER due to foul swelling secretions, increasing swelling, pain and getting warmer. No reported history of fever or chills. In ER the patient was in no distress, temperature was 99 F. lab work shows normal WBC count but elevated procalcitonin. Allergies ramipril [From Altace] Allergy (Unknown, Verified 06/27/17 03:26) Hives/Rash clopidogrel bisulfate [From Plavix] Allergy (Verified 06/27/17 03:26) Hives enalapril maleate [From Vasotec] Allergy (Verified 06/27/17 03:26) Hives morphine Allergy (Verified 06/27/17 03:26) Itching/Hives/Rash propoxyphene napsylate [From Darvocet-N 100] Allergy (Verified 06/27/17 03:26) Hives/Rash simvastatin [From Zocor] Allergy (Verified 06/27/17 03:26) Hives/Rash acetaminophen [From Vicodin] Adverse Reaction (Mild, Verified 06/27/17 03:26) vomiting hives codeine [Codeine] Adverse Reaction (Mild, Verified 06/27/17 03:26) vomiting rash hydrocodone [Hydrocodone] Adverse Reaction (Mild, Verified 06/27/17 03:26) vomiting rash Home medications list reviewed: Yes Home Medications: Citalopram Hydrobromide [Celexa] 20 mg PO DAILY 09/09/11 Lisinopril 20 mg PO DAILY 09/09/11 Quetiapine Fumarate [Seroquel Xr] 50 mg PO BEDTIME 09/09/11 Carvedilol [Coreg] 3.125 mg PO BID 05/20/15 Gabapentin [Gralise] 300 mg PO BID PRN 05/20/15 Insulin -Regular Human [Novolin -R*] See Protocol SQ ACHS 05/20/15 Calcium Acetate 3 cap PO TID 06/27/17 Clonidine HCl [Catapres] 0.1 mg PO SEECOM PRN 10/16/17 Latanoprost [Xalatan] 1 drop EACH EYE BEDTIME 10/16/17 Atorvastatin Calcium [Lipitor] 80 mg PO BEDTIME tab 10/18/17 Prasugrel Hydrochloride [Effient*] 10 mg PO DAILY tab 10/18/17 LORazepam [Ativan] 1 mg PO Q6HP PRN #12 tab 11/28/17 - Past Medical/Surgical History Diabetic: Yes -: depression -: GERD -: HTN -: ESRD -: PACEMAKER -: IDDM -: high cholesterol -: PVD -: STENTS IN HEART -: STENT IN KIDNEY -: CARPAL TUNNEL R HAND -: BLADDER SUSPENSION -: Hysterectomy - Family History Father Notes: bleeding ulcers Mother -: Heart disease, Hypertension, Stroke Brother -: Heart disease, Diabetes, Stroke, Cancer Notes: esphogeal cancer Sister -: Heart disease, Hypertension, Diabetes - Social History Alcohol use: No CD- Drugs: No Caffeine use: Yes Place of Residence: Shelter Review of Systems 10-point ROS is otherwise unremarkable Physical Examination - Physical Exam General: Alert, In no apparent distress HEENT: Atraumatic, PERRLA, Mucous membr. moist/pink, EOMI, Sclerae nonicteric Neck: Supple, 2+ carotid pulse no bruit, No LAD, Without JVD or thyroid abnormality Respiratory: Clear to auscultation bilaterally, Normal air movement Cardiovascular: Regular rate/rhythm, Normal S1 S2 Gastrointestinal: Normal bowel sounds, No tenderness Musculoskeletal: Erythema, Tenderness, Warmth, Other (Left surgical wound has necrotic eschar with yellowish secretion coming out) Integumentary: No rashes Neurological: Normal speech, Normal strength at 5/5 x4 extr, Normal tone, Normal affect Lymphatics: No axilla or inguinal lymphadenopathy - Studies Laboratory Data (last 24 hrs) 01/13/18 20:20: Sodium 134 L, Potassium 3.7, BUN 46 H, Creatinine 5.30 H*, Glucose 191 H 01/13/18 20:20: WBC 9.3, Hgb 8.8 L, Hct 26.6 L, Plt Count 286 Assessment and Plan - Problems (Diagnosis) (1) Status post below knee amputation of left lower extremity Current Visit: Yes Status: Acute (2) Surgical wound infection Current Visit: Yes Status: Acute (3) Diabetes mellitus Onset Date: 06/28/17 Current Visit: No Status: Chronic Qualifiers: Diabetes mellitus type: type 2 Diabetes mellitus usp insulin use: with 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 inspector use Diabetes mellitus complication status: with neurologic complications Diabetes mellitus complication detail: with unspecified neuropathy Qualified Code(s): E11.40 - Type 2 diabetes mellitus with diabetic neuropathy, unspecified; Z79.4 - director long term care (current) use of insulin (4) ESRD on hemodialysis Onset Date: 06/28/17 Current Visit: No Status: Chronic (5) Hypertension Onset Date: 06/28/17 Current Visit: No Status: Chronic Qualifiers: Hypertension type: essential hypertension Qualified Code(s): I10 - Essential (primary) hypertension - Plan The patient will be admitted to the hospital due to a surgical wound infection. Will start empiric IV antibiotic, blood cultures are in process, will order CT to rule out fluid collection osteomyelitis. Consult Dr. 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
[2018-01-13] MEDS ORDERED: ONDANSETRON 4 MG/2 ML VIAL IV PRN (22:53)
[2018-01-13] MEDS ORDERED: VANCOMYCIN 1 GM in NA CHLORIDE 0.9% 500 ML IVPB SCH (23:00)
[2018-01-14] MEDS ORDERED: PIPER/TAZO/NS 2.25gm 4.50 GM/100 ML BAG ONE (01:31)
[2018-01-14 05:59] LABS: Absolute Lymphocytes (CBC) 1.1 K/uL (0.7-4.9); Absolute Monocytes 0.7 K/uL (0.1-1.3); Absolute Neutrophil 5.7 K/uL (1.8-8.0); Basophils % 0.8 % (0-1.3); Eosinophils % 6.1 % (0-4.4); Hematocrit 27.5 % (36.0-45.0); MCH 28.7 pg (27.0-35.0); MCV 88.4 fL (80-100); MPV 8.9 fL (7.6-11.3); Monocytes % 9.1 % (3.3-12.3); RBC Red Blood Cell Count 3.11 M/uL (3.86-4.86)
[2018-01-14] MEDS: PIPER/TAZO/NS 2.25gm 2.25 GM/50 ML BAG IVPB SCH ×4 (06:00→18:41)
[2018-01-14 06:24] LABS: Potassium 3.9 mmol/L (3.5-5.1)
[2018-01-14] MEDS ORDERED: POTASSIUM CL SA 10 MEQ TAB PO ONE (06:41)
[2018-01-14] MEDS: ACETAMINOPHEN 500 MG TAB PO PRN ×2 (06:58→15:13)
[2018-01-14] MEDS: INSULIN -REGULAR HUMAN 50 UNIT/0.5 ML ML SQ SCH ×6 (07:30→21:00)
--- NOTE | 2018-01-14 07:46 | RAD REPORT ---
EXAM DESCRIPTION: CT - Lower Ext Wo Con W/ Mpr - 01/14/2018 6:23 am CLINICAL HISTORY: Below-knee amputation left leg, soft tissue swelling, suspected abscess A preliminary report was provided at the time of the study and reviewed prior to final report. COMPARISON: None. TECHNIQUE: Axial noncontrast 2 millimeter thick images were obtained from the distal left femoral sh aft through the soft tissue stump of the amputation. Sagittal and coronal reformatted images were gen erated and reviewed. The CT scan was performed using dose optimization techniques as appropriate to a performed exam incl uding one or more of the following: Automated exposure control, adjustment of the mA and/or kV accord ing to patient size (this includes techniques or standardized protocols for targeted exams where dose is matched to indication/reason for exam) and use of iterative reconstruction technique. FINDINGS: Osteopenic changes involve the distal femur. No cortical thickening, disruption or acute d istal femur finding. Osteopenia of the patella present as well. Patient has a tri compartment degener ative pattern at the knee joint. There is marginal spurring present. Meniscal calcifications are pres ent. Punctate intra-articular calcified loose bodies also present. Supra patella joint effusion is pr esent with relatively high attenuation value of 45 Hounsfield units. This could be high protein damon nt or hemorrhagic material within the joint space. No intra-articular air. Osteopenic changes involve the tibia from plateau to amputation site. Margins of the amputation are r elatively crisp and distinct. No erosive or destructive change to elevate likelihood of osteomyelitis . There is a comminuted fracture at the distal fibula. Multiple small bone fragments are seen. Age is uncertain. There is some callus formation but no union of the fragment seen. No erosive or destructi ve component to elevate probability of osteomyelitis. Dense vascular calcifications are present. Approximately 5 centimeter Carr's cyst is present in the medial popliteal fossa. This has a heterogeneous, relatively high attenuation value similar to the jairo int effusion. There is likely high protein content or hemorrhagic debris in the popliteal fossa cyst as well. No air or foreign body in the soft tissues. There is edema attenuation at the soft tissue stump. Hete rogeneous low-attenuation material distal to the tibia stump could be reactive fluid or edema small a bscess collections in the soft tissues cannot be excluded. The absence of contrast limits ability to define an abscess rind. IMPRESSION: No CT evidence for osteomyelitis of the distal tibia or fibula. Osteopenic changes are p resent. Comminuted distal fibula fracture. Age is uncertain. Fragments show no union and there is only a mini mal amount of callus formation seen. Edema and ill-defined soft tissue at the soft tissue stump. Small soft tissue abscess is not entirely excluded. No air in the soft tissues. Large 5 centimeter carr cyst and moderately large joint effusion, both with increased attenuation in dicating high protein content and/ or hemorrhagic material. No acute bone or joint finding as a sourc e for intra-articular hemorrhage.
[2018-01-14] MEDS ORDERED: SODIUM CHLORIDE 0.9% 10ML INJ IV PRN (09:35)
[2018-01-14] MEDS: PANTOPRAZOLE 40 MG INJ IVP SCH (11:06)
[2018-01-14] MEDS ORDERED: VANCOMYCIN 1 GM in NA CHLORIDE 0.9% 250 ML IVPB SCH (13:00)
[2018-01-14] MEDS ORDERED: VANCOMYCIN 1 GM in NA CHLORIDE 0.9% 500 ML IVPB SCH (13:00)
[2018-01-14] MEDS ORDERED: ACETAMINOPHEN 650 MG PO PRN (14:47)
[2018-01-14] MEDS ORDERED: cloNIDine HCl 0.1 MG TAB PO PRN (14:47)
[2018-01-14] MEDS ORDERED: NA CHLORIDE 0.9% 1,000 ML IV PRN (14:52)
[2018-01-14] MEDS ORDERED: LIDOCAINE 1% MPF 5 ML VIAL IJ SCH (15:00)
[2018-01-14] MEDS ORDERED: EPOETIN ALFA 10,000 UNIT/ML VIAL IV SCH (15:00)
[2018-01-14] MEDS ORDERED: ALBUMIN HUMAN 25% 50 ML IV SCH (15:00)
[2018-01-14] MEDS: TRAMADOL HCL 50 MG TAB PO PRN (15:37)
[2018-01-14] MEDS ORDERED: HOME MED 1 EA UNK (Gabapentin [Gralise] 300 MG) PO SCH (17:00)
[2018-01-14] MEDS: GABAPENTIN 300 MG CAP PO SCH (17:00)
[2018-01-14] MEDS: LATANOPROST EACH EYE SCH (21:00)
[2018-01-14] MEDS: CARVEDILOL 3.125 MG TAB PO SCH (21:20)
[2018-01-14] MEDS: LORAZEPAM 1 MG TABLET PO PRN (21:20)
[2018-01-14] MEDS: CA ACETATE 667 MG CAP PO SCH (21:21)
[2018-01-14] MEDS: ATORVASTATIN 80 MG TAB PO SCH (21:21)
[2018-01-14] MEDS: HYDROCODONE/APAP 5/325 MG TAB PO PRN (21:32)
[2018-01-15] MEDS: GABAPENTIN 300 MG CAP PO SCH ×3 (00:51→16:08)
[2018-01-15] MEDS: PIPER/TAZO/NS 2.25gm 2.25 GM/50 ML BAG IVPB SCH ×4 (00:51→17:47)
--- NOTE | 2018-01-15 02:19 | CON ---
Date of Consultation: 01/14/2018 Chief Complaint: End-stage renal disease. History Of Present Illness: The patient is undergoing dialysis 3 times per week on Sunday, , and Sunday. The patient was dialyzed on Sunday. The patient presented to the hospital because of left BKA surgical wound infection, nonhealing surgical wound. The patient is to have revision of the surgical wound with infected stump, status post left BKA. The patient is an 82-year-old woman w ith history of hypertension; end-stage renal disease, on dialysis; diabetes mellitus; and dyslipidemi a. Recently, she had a BKA done 6 weeks ago. The patient was discharged to the half-way. The p atient was sent to ER because of a redness, swelling of the stump, and increased warmness. The patie nt does not report fever or chills. Review of Systems: Constitutional: Denies fever or chills. Eyes: Denies vision changes. Ears, Nose, Mouth, and Throat: Denies sore throat or earache. Respiratory: Denies PND or orthopnea. Cardiovascular: Denies chest pain or palpitation. Gastrointestinal: Denies nausea or vomiting. All other systems are reviewed and all are negative. Past Medical History: 1.Diabetes mellitus, on insulin. 2.Depression. 3.GERD. 4.Hypertension. 5.End-stage renal disease. 6.Pacemaker. 7.Hypercholesteremia. 8.Peripheral vascular disease. 9.Stent for coronary artery disease. 10.Stents for renovascular disease. 11.Carpal tunnel syndrome. 12.Bladder suspension. 13.Hysterectomy. Family History: Father with bleeding ulcer. Mother with hypertension and stroke. Brother with stro ke, diabetes, and heart disease. Social History: Denies tobacco, alcohol, or illicit drug. Physical Examination: General: The patient is alert and oriented x3. Eyes: Anicteric sclerae. EOMI. Ears, Nose, Mouth, and Throat: Oral mucosa is moist. No pallor. Neck: Supple. No JVD. No bruits. Lungs: Clear to auscultation bilaterally. Heart: S1 and S2. Abdomen: Soft and benign. Extremities: Infected stump with redness. There is no bleeding. No oozing. No discharge. Neurological: Moving extremities. Cranial nerves intact. Psychiatric: Alert and oriented x3. Normal affect. Laboratory Data: Sodium 134, potassium 3.7, BUN 46, creatinine 5.3, and glucose 191. Hemoglobin 8.8 , hematocrit 26.6. Impression And Plan: 1.Status post [id number] amputation of the left lower extremity. The patient will have antibiot ics and is to have surgical evaluation for possible revision of the stump. 2.Diabetes mellitus. Continue insulin. 3.End-stage renal disease, mild fluid overload. Dialysis will be done today to control fluid overlo ad and control electrolytes. Monitor fluid balance and continue p.o. fluid restriction. 4.Diabetes mellitus. Continue insulin. Adjust treatment as needed. 5.Hypertension. Blood pressure is controlled. Continue p.o. fluid restriction, low-sodium diet, an d continue blood pressure medication. 6.Renal osteodystrophy. The patient will continue low-phosphorus diet. Binders as before. RINA/MODL Voice ID: [id number] Report ID: [id number]
[2018-01-15 06:22] LABS: Potassium 4.3 mmol/L (3.5-5.1)
[2018-01-15] MEDS: INSULIN -REGULAR HUMAN 50 UNIT/0.5 ML ML SQ SCH ×5 (07:30→21:00)
[2018-01-15] MEDS ORDERED: HOME MED 1 EA UNK (Citalopram Hydrobromide [Celexa] 20 MG) PO SCH (09:00)
[2018-01-15] MEDS: CA ACETATE 667 MG CAP PO SCH ×2 (09:50→21:25)
[2018-01-15] MEDS: LISINOPRIL 20 MG TAB PO SCH (09:50)
[2018-01-15] MEDS: PRASUGREL (EFFIENT) 10 MG TAB PO SCH (09:51)
[2018-01-15] MEDS: CITALOPRAM 10 MG TABLET PO SCH (09:51)
[2018-01-15] MEDS: CARVEDILOL 3.125 MG TAB PO SCH ×2 (09:51→21:23)
[2018-01-15] MEDS: PANTOPRAZOLE 40 MG INJ IVP SCH (09:51)
[2018-01-15] MEDS: HYDROCODONE/APAP 5/325 MG TAB PO PRN (10:11)
[2018-01-15] MEDS: LORAZEPAM 1 MG TABLET PO PRN (11:36)
--- NOTE | 2018-01-15 19:43 | RAD REPORT ---
EXAM DESCRIPTION: RAD - Foot Right 2 View - 01/15/2018 7:28 pm CLINICAL HISTORY: Right foot wound not further localized COMPARISON: June 2017 FINDINGS: No fracture or dislocation seen. Degenerative changes at the first MTP joint noted. Lucenc y in the base of the first proximal phalanx is probably degenerative change. This is progressive even from June. More distally the first proximal phalanx and the distal first phalanx show no additional acute findings. No erosive or destructive change to the first metatarsal head. The second- fifth toe s and metatarsals show no acute finding or progressive change from June. Patient has midfoot degener ative change that is stable. Dense arterial tree calcifications are present. No air or foreign body in the soft tissues. IMPRESSION: No fracture seen and no frankly destructive bone process identifiable. Degenerative changes are present at the first MTP joint and there is some subtle increase in lucency at the base of the first proximal phalanx. Provided history did not indicate the location of the foot wound. First proximal phalanx osteomyeliti s is not excluded if the wound is in proximity to the MTP joint.
[2018-01-15] MEDS: LATANOPROST EACH EYE SCH (21:23)
[2018-01-15] MEDS: ATORVASTATIN 80 MG TAB PO SCH (21:24)
[2018-01-15] MEDS: QUETIAPINE 25 MG TAB PO SCH (21:25)
[2018-01-16] MEDS: PIPER/TAZO/NS 2.25gm 2.25 GM/50 ML BAG IVPB SCH ×4 (00:11→17:23)
[2018-01-16] MEDS: GABAPENTIN 300 MG CAP PO SCH ×3 (01:00→17:20)
--- NOTE | 2018-01-16 02:25 | CON ---
Date of Consultation: 01/15/2018 Additional Consulting Physician: Arslan Lema MD Reason For Consultation: Elevated BUN and creatinine, fluid management. History Of Present Illness: This is a pleasant 82-year-old female, well known to me from the dialysi s with significant past medical history of hypertension; end-stage renal disease on hemodialysis, Sun, Sunday, Sunday at [facility]; peripheral vascular disease status post bel ow-knee amputation recently; hypertension; hyperlipidemia; coronary artery disease status post MO; co ngestive heart failure; diabetes complicated with neuropathy and nephropathy; COPD; the patient came to the hospital for foot infection and cellulitis of the stump, but apparently she has some gangrenou s toe change on the other foot. Physical Examination: Vital Signs: When I saw the patient, the patient lying in bed, comfortable, not on any distress. Chest: Clear to auscultation. Heart: S1, S2. Regular. Abdomen: Soft, nontender. Extremities: Left below-knee amputation, right dressing on the foot with the 2 middle toe gangrenous plaque. Laboratory Data: WBC 8.1, H and H 8.9/27.5, platelets 247. Sodium 137, potassium 4.3, bicarb 28, BU N 25, creatinine 3.9, calcium of 9. Current Medications: The patient at home includes: 1.Zosyn. 2.Vancomycin. 3.Epogen. 4.Carvedilol 3.25. 5.Lisinopril. 6.Clonidine. 7.Pantoprazole. 8.Hydrocodone. Assessment And Plan: 1.End-stage renal disease, stable. We will continue the patient on dialysis Sunday, Sunday, ay. We will arrange for the dialysis tomorrow and we will follow up the patient. 2.Hypertension, controlled, optimal. Continue current medication. 3.Secondary hyperparathyroidism, stable. Continue to monitor. 4.Anemia. Start the patient on Epogen. 5.Gangrenous toe, will follow up culture. Continue current antibiotic, dose appropriate. 6.Diabetes as by primary. MARY/MICHAEL Voice ID: [id number] Report ID: [id number]
--- NOTE | 2018-01-16 04:21 | PN ---
Date of Progress Note: 01/15/2018 The patient states she feels considerably better today and she is much more alert. Examination of th e wounds shows minimal changes in the stump part of the wound. No evidence of any active infection, however, the right lower medial aspect of the ankle still shows some necrotic area. However, it is n oticed this area is erythematous as has been. In view of this, we will continue IV antibiotics. We will obtain an x-ray of the area to make sure there is no osteomyelitis. Depending on results, an MR I may be necessary. Continue on her IV antibiotics. She was seen by Renal, will continue her dialysi s. HR/MODL Voice ID: [id number] Report ID: [id number]
[2018-01-16] MEDS: INSULIN -REGULAR HUMAN 50 UNIT/0.5 ML ML SQ SCH ×4 (07:30→21:00)
[2018-01-16] MEDS: HYDROCODONE/APAP 5/325 MG TAB PO PRN ×3 (09:21→22:24)
[2018-01-16] MEDS: CITALOPRAM 10 MG TABLET PO SCH (09:22)
[2018-01-16] MEDS: PRASUGREL (EFFIENT) 10 MG TAB PO SCH (09:22)
[2018-01-16] MEDS: CA ACETATE 667 MG CAP PO SCH ×2 (09:22→22:04)
[2018-01-16] MEDS: CARVEDILOL 3.125 MG TAB PO SCH ×2 (09:22→22:11)
[2018-01-16] MEDS: LISINOPRIL 20 MG TAB PO SCH (09:22)
[2018-01-16] MEDS: PANTOPRAZOLE 40 MG INJ IVP SCH (09:22)
[2018-01-16] MEDS: TRAMADOL HCL 50 MG TAB PO PRN (13:50)
--- NOTE | 2018-01-16 14:39 | PN ---
Date of Progress Note: 01/16/2018 Subjective: The patient doing well. No nausea. No vomiting. Sleepy today. Physical Examination: Vital Signs: Blood pressure 147/70, pulse of 70. Chest: Clear to auscultation. Heart: S1, S2. Regular. Abdomen: Soft, nontender. Extremities: Dressing on the left stump with dressing on the right foot gangrenous second and third toe. Neuro: No focal. Laboratory Data: WBC 8.1, H and H 8.9/27.5, platelets 247. Sodium of 137, potassium 4.3, bicarb 28, BUN 25, creatinine 3.9, calcium 9.0. Current Medications: The patient on its include: 1.Zosyn. 2.Vancomycin. 3.Epogen. 4.Carvedilol 3.125 b.i.d. 5.Clonidine p.r.n. 6.Lisinopril. 7.Atorvastatin. 8.Gabapentin 300 t.i.d. 9.Citalopram. 10.PhosLo 2 tablets with each meal. 11.Tramadol. 12.Hydrocodone. 13.Pantoprazole. 14.Tylenol. Assessment And Plan: 1.End-stage renal disease. We will continue the patient on dialysis Sunday, Sunday, and Sunday. Scheduled for dialysis today. 2.Hypertension, controlled, optimal. Continue current medication. 3.Secondary hyperparathyroid. I am going to continue with PhosLo. 4.Stump infection. Continue current antibiotic. Culture still negative. 5.Possible osteomyelitis on the right foot. We will consider MRI. I will discuss the case with Dr. Lema and we will follow up. 6.Diabetes as by primary. MARY/JUAN JL Voice ID: [id number] Report ID: [id number]
[2018-01-16] MEDS: MUPIROCIN 2% OINT 22GM TUBE TOP SCH (17:19)
[2018-01-16 18:41] LABS: HBsAG Nonreactive (Nonreactive)
[2018-01-16] MEDS: EPOETIN ALFA 10,000 UNIT/ML VIAL IV SCH (19:49)
[2018-01-16] MEDS: ATORVASTATIN 80 MG TAB PO SCH (22:04)
[2018-01-16] MEDS: LATANOPROST EACH EYE SCH (22:05)
[2018-01-16] MEDS: QUETIAPINE 25 MG TAB PO SCH (22:06)
[2018-01-16] MEDS: PROMOD 30 ML DOSE PO SCH (22:06)
[2018-01-17] MEDS: GABAPENTIN 300 MG CAP PO SCH ×3 (01:00→17:59)
[2018-01-17] MEDS: PIPER/TAZO/NS 2.25gm 2.25 GM/50 ML BAG IVPB SCH ×4 (01:12→17:59)
[2018-01-17] MEDS: VANCOMYCIN 1.25 GM in NA CHLORIDE 0.9% 250 ML IVPB SCH ×2 (02:00→03:45)
[2018-01-17] MEDS: INSULIN -REGULAR HUMAN 50 UNIT/0.5 ML ML SQ SCH ×4 (07:30→20:34)
[2018-01-17] MEDS: PROMOD 30 ML DOSE PO SCH ×2 (09:00→20:35)
[2018-01-17] MEDS: HYDROCODONE/APAP 5/325 MG TAB PO PRN ×2 (09:57→15:50)
[2018-01-17] MEDS: CITALOPRAM 10 MG TABLET PO SCH (09:59)
[2018-01-17] MEDS: PRASUGREL (EFFIENT) 10 MG TAB PO SCH (09:59)
[2018-01-17] MEDS: CA ACETATE 667 MG CAP PO SCH ×2 (09:59→20:31)
[2018-01-17] MEDS: CARVEDILOL 3.125 MG TAB PO SCH ×2 (09:59→20:32)
[2018-01-17] MEDS: LISINOPRIL 20 MG TAB PO SCH (09:59)
[2018-01-17] MEDS: PANTOPRAZOLE 40 MG INJ IVP SCH (10:00)
[2018-01-17] MEDS: MUPIROCIN 2% OINT 22GM TUBE TOP SCH (10:00)
--- NOTE | 2018-01-17 15:31 | PN ---
Date of Progress Note: 01/17/2018 Subjective: The patient doing well. No nausea. No vomiting. More comfortable. Physical Examination: Vital Signs: Blood pressure 124/56, pulse of 70, afebrile. Chest: Clear to auscultation. Heart: S1, S2. Regular. Abdomen: Soft, nontender. Extremities: Dressing on the right foot and stump of the left below-knee amputation. Laboratory Data: H and H 8.9/27.5. Sodium 137, potassium 4.3, bicarb 28, BUN 25, creatinine 3.9. Current Medications: The patient on include Epogen, , atorvastatin, clonidine p.r.n., carv edilol 3.125, lisinopril 20, Tylenol, Zofran, pantoprazole, Zosyn, and vancomycin. Assessment And Plan: 1.End-stage renal disease. We will arrange patient on for dialysis tomorrow. 2.Hypertension, controlled, optimal. We will continue to monitor the patient. 3.Anemia of chronic kidney disease. Continue current Epogen. 4.Secondary hyperparathyroid, stable. 5.Osteomyelitis with stump infection. Continue current antibiotic. Culture still pending. Waiting for bone scan to evaluate if there is osteomyelitis or cellulitis on the right foot. JOHNNY Voice ID: [id number] Report ID: [id number]
--- NOTE | 2018-01-17 17:01 | PN ---
Date of Progress Note: 01/17/2018 Subjective: The patient doing well. Physical Examination: Vital Signs: Blood pressure 139/63, pulse of 75. Chest: Clear to auscultation. Heart: S1 and S2. Systolic murmur. Abdomen: Soft, nontender. Extremities: Dressing on the right foot gangrenous tip, second, third and first. Dressing on the st ump. Neuro: No focal. Laboratory Data: H and H 8.9/27.5. Sodium of 137, potassium 4.3, bicarb 25, BUN 25, creatinine 3.9, calcium of 9. Current Medications: The patient on its include: 1.Hydrocodone. 2.Atorvastatin. 3.PhosLo. 4.Carvedilol 3.125. 5.Gabapentin. 6.Epogen. 7.Pantoprazole. 8.Zosyn. 9.Vancomycin. 10.Tramadol. Assessment And Plan: 1.End-stage renal disease. We will continue the patient on dialysis Sunday, Sunday, Sunday. The patient is scheduled for dialysis tomorrow. 2.Secondary hyperparathyroid, stable. Continue binder. 3.Anemia of chronic kidney disease. Continue Epogen. 4.Stump infection and cellulitis of the foot with gangrenous toe, possible osteomyelitis. Waiting for bone scan 3 phase. We will follow up with the primary. Continu e current antibiotic. JOHNNY Voice ID: [id number] Report ID: [id number]
--- NOTE | 2018-01-17 19:22 | CON ---
Date of Consultation: 01/17/2018 Reason For Consultation: Right lower extremity open wounds. History Of Present Illness: This is the case of an 82-year-old patient with a history of peripheral vascular disease, who received an emergent left below-knee amputation several months ago and now come with a new findings in the right foot with ischemia changes under toes region with severe peripheral vascular disease. The patient cannot give much information. Most of the information obtained from the chart and from the family. The patient came here with some foul-smelling secretion. Allergies: REVIEWED. Past Medical History: Problems reviewed including depression, renal failure, diabetes, peripheral va scular disease. Family History: Stroke, cardiac disease. Review of Systems: Unable to be obtained. Physical Examination: General: The patient is awake and alert. HEENT: Pupils anicteric. Abdomen: Soft and depressible. Extremities: Left below-knee area with some scabs over the amputation site. The patient has not baldo ng in the office before. There is still no purulent discharge present and no cellulitis present at t his moment. The right foot region shows open ulcers and diabetic ulcers in the foot itself with isch emic changes of the toes 1-4. Distal dorsalis pedis in the right side is not palpable. 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 Imaging: CAT scan of the leg shows no CT evidence of osteomyelitis or distal fibula, some postop aron nges at stump. No evidence of fluctuance seen, no crepitus. Assessment: An 82-year-old patient with nonhealing wound. The patient has some new changes on the s tump area of the pressure points and then patient also have ischemic changes in the right foot. The left stump area looks intact with no cellulitis. There is a pressure for patient bending her leg that is just compromising some of the flaps. No fluctuance, no crepitus. No evidence of an abscess or fluid collection. On the right foot, patient has cellulitis of the with open u lcer and ischemic changes. So, the impression will be osteomyelitis of the right foot multiple phala nx. From the stump standpoint, the left side we are going to leave that alone. We can go and remove the scab and exposed areas in that region. She has severe peripheral vascular disease. There is no fluctuance or crepitus in that area. On the right side, patient's osteomyelitis will be treated wit h antibiotics. She may develop a changes enough that required below-knee amputation, but we know pato t below-knee amputations on her does not heal properly because of the severe peripheral vascular dise ase and we know that also above-knee amputation of higher mortality. So at this moment, w e are trying to get the evidence of osteomyelitis within possible MRI. They allows and then proceed accordingly. If below-knee amputation is needed, then we will proceed accordingly. GALINDO/MICHAEL Voice ID: [id number] Report ID: [id number]
[2018-01-17] MEDS: ATORVASTATIN 80 MG TAB PO SCH (20:32)
[2018-01-17] MEDS: QUETIAPINE 25 MG TAB PO SCH (20:32)
[2018-01-17] MEDS: LATANOPROST EACH EYE SCH (20:32)
[2018-01-18] MEDS: PIPER/TAZO/NS 2.25gm 2.25 GM/50 ML BAG IVPB SCH ×4 (00:54→17:41)
[2018-01-18] MEDS: GABAPENTIN 300 MG CAP PO SCH ×3 (00:55→16:59)
--- NOTE | 2018-01-18 01:17 | PN ---
Date of Progress Note: 01/16/2018 The patient states she continues to feel somewhat better. Her wound on the right medial aspect of th e ankle does look somewhat better, although it is still necrotic, central area, and some erythema norman und the end of the BKA areas. No significant change. She continues on dialysis. X-ray was nonspeci fic as far as the osteo was concerned. After discussion with the Nephrology, it was felt that determ ination need to be made as far as which way to treat the ulceration and wound on the right. In view of overall findings, we decided to do study with the thought being if it was positive for , she will require IV antibiotics probably at [facility]. If it was negative, she could continue with symptomatic treatment and p.o. antibiotics. Therefore, the latter was ordered, and depending o n this, disposition will be made. /MICHAEL Voice ID: [id number] Report ID: [id number]
[2018-01-18 07:18] LABS: Albumin 2.2 g/dL (3.4-5.0); Phosphorus 2.5 mg/dL (2.5-4.9); Potassium 4.1 mmol/L (3.5-5.1)
[2018-01-18] MEDS: INSULIN -REGULAR HUMAN 50 UNIT/0.5 ML ML SQ SCH ×4 (07:30→21:00)
[2018-01-18] MEDS: PANTOPRAZOLE 40 MG INJ IVP SCH (08:45)
[2018-01-18] MEDS: LISINOPRIL 20 MG TAB PO SCH (08:45)
[2018-01-18] MEDS: PRASUGREL (EFFIENT) 10 MG TAB PO SCH (08:45)
[2018-01-18] MEDS: CITALOPRAM 10 MG TABLET PO SCH (08:45)
[2018-01-18] MEDS: CA ACETATE 667 MG CAP PO SCH ×2 (08:46→21:01)
[2018-01-18] MEDS: MUPIROCIN 2% OINT 22GM TUBE TOP SCH (08:46)
[2018-01-18] MEDS: CARVEDILOL 3.125 MG TAB PO SCH ×2 (08:46→21:01)
[2018-01-18] MEDS: PROMOD 30 ML DOSE PO SCH ×2 (08:47→21:02)
[2018-01-18] MEDS: COLLAGENASE 30 GM OINTMENT TOP SCH (08:47)
--- NOTE | 2018-01-18 11:46 | RAD REPORT ---
EXAM DESCRIPTION: NM - Bone Imaging Three Phase - 01/18/2018 11:13 am CLINICAL HISTORY: Foot wound, abnormal plain films COMPARISON: Right foot films January 15 TECHNIQUE: The patient was administered 25.2 mCi Tc 99m MDP. Dynamic flow imaging was performed at the area of interest. Immediate blood pool and 3-4 hour delayed images were obtained. FINDINGS: Dynamic flow imaging shows an increase in activity in the right foot near the MTP joint. T his matches the area of abnormality on plain film. Blood pool and delayed imaging shows focally inten se activity in the region of the first MTP joint. This could be in the first metatarsal head, first p roximal phalanx or both. There is increased activity in the midfoot and ankle region as well. Midfoot and ankle activity was not abnormal on either blood pool or dynamic flow sequences. In the setting of a known soft tissue wound and suspected bone loss on plain film, findings are most likely osteomyelitis. An active inflammatory or degenerative process would be possible as well. Exact site of the soft tissue wound is not known. The midfoot and ankle activity is favored to be degenera tive. IMPRESSION: Abnormal 3 phase bone scan showing abnormal activity in the region of first MTP joint. Based on collective imaging and history, osteomyelitis is favored over inflammatory or active degener ative change.
[2018-01-18] MEDS: HYDROCODONE/APAP 5/325 MG TAB PO PRN ×2 (13:09→21:02)
--- NOTE | 2018-01-18 17:56 | CON ---
Reason For Consultation: Right foot cellulitis, osteomyelitis, diabetic ulcers, ischemia, peripheral vascular disease. History Of Present Illness: This is the case of an 82-year-old patient known to us with severe perip heral vascular disease that required several months ago an amputation of a left below knee emergently . She has not been seen since the day of the surgery but now she comes to the hospital with the righ t foot cellulitis, open ulcers and osteomyelitis. Physical Examination: General: The patient is awake and alert. Abdomen: Soft and depressible. Extremities: Left leg, the patient has below-knee amputation. Scabs are present. No fluctuance, no crepitus. On the right lower extremity, the patient has diabetic ulcers between the toes with ische luís changes. Chronic ischemia of the toes and the foot but no dorsalis pedis present, possible osteo myelitis. Laboratory Data: Blood work shows WBC count of 8.1 with hemoglobin of 8.9. Bone scan, osteomyelitis of the first MTP joint that is on the right foot. Assessment: This is an 82-year-old patient with a right foot osteomyelitis and cellulitis. In the p ast, the patient had an amputation of the left lower extremity since peripheral vascular disease had not allowed this to heal properly. Even that, healing in that area has been difficult with scabs pre sent in the amputation, imagine when we trying to go the right side but apparently with this inflamma tion and no way to improve her circulation that might be the case either below or above-knee amputati on. We will discuss the case with the family once again to see what their wishes are. In the meantime, the antibiotics, infectious disease evaluation should be done. GALINDO/MICHAEL Voice ID: [id number] Report ID: [id number]
[2018-01-18] MEDS: QUETIAPINE 25 MG TAB PO SCH (21:01)
[2018-01-18] MEDS: ATORVASTATIN 80 MG TAB PO SCH (21:01)
[2018-01-18] MEDS: LATANOPROST EACH EYE SCH (21:03)
[2018-01-19] MEDS: GABAPENTIN 300 MG CAP PO SCH ×3 (00:14→17:06)
[2018-01-19] MEDS: PIPER/TAZO/NS 2.25gm 2.25 GM/50 ML BAG IVPB SCH ×4 (00:14→17:05)
--- NOTE | 2018-01-19 01:42 | PN ---
Date of Progress Note: 01/18/2018 Chief Complaint: End-stage renal disease on dialysis. History Of Present Illness: The patient is scheduled to have dialysis today. Volemia and electrolyt es are controlled. The patient has history of hypertension and blood pressure remains well controlle d on blood pressure medication. History of peripheral vascular disease with gangrene. The patient previously underwent amputation an d she is admitted for stump infection and cellulitis of the foot with gangrenous toe. Review of Systems: Denies fever, chills. Physical Examination: Lungs: Clear to auscultation bilaterally. Heart: S1, S2. Abdomen: Soft, benign. Extremities: Dressing in place. Impression And Plan: 1.End-stage renal disease. Dialysis will be done today with ultrafiltration. Continue low-sodium d iet and renal diet. Monitor electrolytes. 2.Secondary hyperparathyroidism. Continue binder and monitor intact PTH. Monitor phosphorus level. Adjust binder as needed. 3.Anemia in chronic kidney disease. The patient will continue JESSICA. 4.Stump infection cellulitis, possible osteomyelitis. Start the antibiotics per primary team and Marte yasmany, wound care per Surgery. EB/MODL Voice ID: [id number] Report ID: [id number]
[2018-01-19 07:13] LABS: Albumin 2.1 g/dL (3.4-5.0); Phosphorus 2.1 mg/dL (2.5-4.9); Potassium 3.9 mmol/L (3.5-5.1)
[2018-01-19] MEDS: INSULIN -REGULAR HUMAN 50 UNIT/0.5 ML ML SQ SCH ×4 (07:30→21:00)
[2018-01-19] MEDS: COLLAGENASE 30 GM OINTMENT TOP SCH (09:00)
[2018-01-19] MEDS: HYDROCODONE/APAP 5/325 MG TAB PO PRN ×3 (09:50→21:17)
[2018-01-19] MEDS: LISINOPRIL 20 MG TAB PO SCH (10:18)
[2018-01-19] MEDS: CA ACETATE 667 MG CAP PO SCH ×2 (10:18→21:05)
[2018-01-19] MEDS: CARVEDILOL 3.125 MG TAB PO SCH ×2 (10:19→21:05)
[2018-01-19] MEDS: PRASUGREL (EFFIENT) 10 MG TAB PO SCH (10:19)
[2018-01-19] MEDS: CITALOPRAM 10 MG TABLET PO SCH (10:19)
[2018-01-19] MEDS: PANTOPRAZOLE 40 MG INJ IVP SCH (10:20)
[2018-01-19] MEDS: MUPIROCIN 2% OINT 22GM TUBE TOP SCH (10:21)
[2018-01-19] MEDS: PROMOD 30 ML DOSE PO SCH ×2 (10:21→21:07)
[2018-01-19] MEDS: TRAMADOL HCL 50 MG TAB PO PRN (16:17)
--- NOTE | 2018-01-19 20:42 | PN ---
Date of Progress Note: 01/18/2018 The patient is basically status quo. She states she continues to feel better; however, the area on t he right medial aspect of the malleolus was a little more open today, culture was taken. The plan wi ll be to continue her on her IV antibiotics. The area was evaluated with various modalities for oste o and was rather suspicious for a small amount. The discussion for disposition, whether to go home a nd/or return to the senior care home will be undertaken over the next day or so with her family. HR/MODL Voice ID: [id number] Report ID: [id number]
[2018-01-19] MEDS: LATANOPROST EACH EYE SCH (21:04)
[2018-01-19] MEDS: ATORVASTATIN 80 MG TAB PO SCH (21:05)
[2018-01-19] MEDS: QUETIAPINE 25 MG TAB PO SCH (21:06)
[2018-01-20] MEDS: PIPER/TAZO/NS 2.25gm 2.25 GM/50 ML BAG IVPB SCH ×4 (00:30→17:33)
[2018-01-20] MEDS: GABAPENTIN 300 MG CAP PO SCH ×3 (00:30→17:33)
--- NOTE | 2018-01-20 03:20 | PN ---
Date of Progress Note: 01/19/2018 Chief Complaint: End-stage renal disease. History Of Present Illness: The patient received dialysis yesterday. The patient is stable after di alysis. Review of Systems: Denies PND, orthopnea. Physical Examination: Lungs: Clear to auscultation bilaterally. Heart: S1, S2. Abdomen: Soft, benign. Extremities: Dressing in place. Impression And Plan: 1.End-stage renal disease. Next dialysis on Sunday. Monitor electrolytes closely. Continue potass ium diet/renal diet. 2.Secondary hyperparathyroidism. Continue binders and monitor phosphorus level. 3.Anemia in chronic kidney disease. Monitor hemoglobin level. Adjust JESSICA. 4.Stump infection cellulitis, osteomyelitis. Continue antibiotics and wound care. EB/MODL Voice ID: [id number] Report ID: [id number]
--- NOTE | 2018-01-20 06:04 | PN ---
Date of Progress Note: 01/19/2018 Subjective: Status quo as far as her overall condition. Discussion in regard to how aggressive william tment of her leg ulcers will be done with the family once her cultures are obtained. At the present time, I favor the conservative treatment in form of IV vancomycin at the time of dialysis, possible a ddition of oral medication. Disposition should be made for the next 24-48 hours. HR/MODL Voice ID: [id number] Report ID: [id number]
[2018-01-20 06:57] LABS: Albumin 2.2 g/dL (3.4-5.0); Potassium 4.1 mmol/L (3.5-5.1)
[2018-01-20] MEDS: INSULIN -REGULAR HUMAN 50 UNIT/0.5 ML ML SQ SCH ×4 (07:30→21:00)
[2018-01-20] MEDS: MUPIROCIN 2% OINT 22GM TUBE TOP SCH (09:00)
[2018-01-20] MEDS: COLLAGENASE 30 GM OINTMENT TOP SCH (09:00)
[2018-01-20] MEDS: PROMOD 30 ML DOSE PO SCH ×3 (09:00→21:32)
[2018-01-20] MEDS: HYDROCODONE/APAP 5/325 MG TAB PO PRN ×2 (10:28→15:24)
[2018-01-20] MEDS: CITALOPRAM 10 MG TABLET PO SCH (10:29)
[2018-01-20] MEDS: PRASUGREL (EFFIENT) 10 MG TAB PO SCH (10:29)
[2018-01-20] MEDS: CARVEDILOL 3.125 MG TAB PO SCH ×2 (10:29→21:30)
[2018-01-20] MEDS: CA ACETATE 667 MG CAP PO SCH ×2 (10:29→21:28)
[2018-01-20] MEDS: LISINOPRIL 20 MG TAB PO SCH (10:29)
[2018-01-20] MEDS: PANTOPRAZOLE 40 MG INJ IVP SCH (10:30)
[2018-01-20] MEDS: TRAMADOL HCL 50 MG TAB PO PRN (21:28)
[2018-01-20] MEDS: QUETIAPINE 25 MG TAB PO SCH (21:28)
[2018-01-20] MEDS: ATORVASTATIN 80 MG TAB PO SCH (21:28)
[2018-01-20] MEDS: LATANOPROST EACH EYE SCH (21:30)
[2018-01-20] MEDS: LORAZEPAM 1 MG TABLET PO PRN (21:46)
[2018-01-21] MEDS: GABAPENTIN 300 MG CAP PO SCH ×3 (00:42→17:05)
[2018-01-21] MEDS: PIPER/TAZO/NS 2.25gm 2.25 GM/50 ML BAG IVPB SCH ×4 (00:42→18:00)
[2018-01-21 05:33] LABS: Albumin 2.2 g/dL (3.4-5.0); Potassium 4.4 mmol/L (3.5-5.1)
[2018-01-21 05:53] VITALS: BMI 25.9
[2018-01-21] MEDS: INSULIN -REGULAR HUMAN 50 UNIT/0.5 ML ML SQ SCH ×4 (07:30→21:00)
[2018-01-21] MEDS: CITALOPRAM 10 MG TABLET PO SCH (10:44)
[2018-01-21] MEDS: LISINOPRIL 20 MG TAB PO SCH (10:44)
[2018-01-21] MEDS: CA ACETATE 667 MG CAP PO SCH ×2 (10:44→21:08)
[2018-01-21] MEDS: CARVEDILOL 3.125 MG TAB PO SCH ×2 (10:44→21:09)
[2018-01-21] MEDS: PRASUGREL (EFFIENT) 10 MG TAB PO SCH (10:45)
[2018-01-21] MEDS: PANTOPRAZOLE 40 MG INJ IVP SCH (10:45)
[2018-01-21] MEDS: TRAMADOL HCL 50 MG TAB PO PRN (10:54)
[2018-01-21] MEDS: MUPIROCIN 2% OINT 22GM TUBE TOP SCH (10:56)
[2018-01-21] MEDS: PROMOD 30 ML DOSE PO SCH ×2 (10:56→21:10)
[2018-01-21] MEDS: COLLAGENASE 30 GM OINTMENT TOP SCH (10:57)
[2018-01-21] MEDS: HYDROCODONE/APAP 5/325 MG TAB PO PRN ×2 (14:23→21:08)
[2018-01-21] MEDS: EPOETIN ALFA 10,000 UNIT/ML VIAL IV SCH (19:12)
--- NOTE | 2018-01-21 20:17 | PN ---
Date of Progress Note: 01/21/2018 The patient states she feels okay. She does seem stable. She is more alert and the discussion was h marce with the radiologist as a osteomyelitis of the right foot was concerned secondary to the ulcer an d he felt that there was a high likelihood this was . Culture came back, MRSA sensitive to vancomycin and Bactrim. to have strength according to dialysis protocol and the question is what procedure should be done if any and I feel at this stage the antibiotics as indicated may be the best course. ID will be consulted. If in fact if this is agreeable, then will be transferred baylee sony to her residential hopefully tomorrow. If in fact this does not produce an improveme nt, then surgical procedure as discussed with Dr. Rondon may be indicated. However, for the time baylee mayers, I would like to put this on hold if at all possible. HR/MODL Voice ID: [id number] Report ID: [id number]
[2018-01-21] MEDS: LATANOPROST EACH EYE SCH (21:08)
[2018-01-21] MEDS: SMZ./TMP. 800/160 MG TABLET PO SCH (21:09)
[2018-01-21] MEDS: ATORVASTATIN 80 MG TAB PO SCH (21:09)
[2018-01-21] MEDS: QUETIAPINE 25 MG TAB PO SCH (21:10)
[2018-01-22] MEDS: GABAPENTIN 300 MG CAP PO SCH ×3 (00:41→17:15)
[2018-01-22] MEDS: PIPER/TAZO/NS 2.25gm 2.25 GM/50 ML BAG IVPB SCH ×2 (00:41→05:00)
--- NOTE | 2018-01-22 01:27 | PN ---
Date of Progress Note: 01/21/2018 Chief Complaint: End-stage renal disease, on dialysis. History Of Present Illness: The patient is scheduled to have dialysis today with ultrafiltration. Review of Systems: Denies PND, orthopnea. Cardiovascular: Denies chest pain, palpitation, syncope. All other systems reviewed and all are negative. Impression And Plan: 1.End-stage renal disease, on dialysis. Continue with dialysis 3 times per week. 2.Severe peripheral vascular disease, nonhealing lower extremity wounds. Physical therapy will be or dered as tolerated. 3.Anemia of chronic kidney disease, continue JESSICA. 4.Renal osteodystrophy. Continue renal diet and binders. EB/MODL Voice ID: [id number] Report ID: [id number]
[2018-01-22 06:24] LABS: Albumin 2.1 g/dL (3.4-5.0); Phosphorus 2.7 mg/dL (2.5-4.9); Potassium 4.2 mmol/L (3.5-5.1)
[2018-01-22] MEDS: INSULIN -REGULAR HUMAN 50 UNIT/0.5 ML ML SQ SCH ×4 (07:30→21:00)
[2018-01-22] MEDS: MUPIROCIN 2% OINT 22GM TUBE TOP SCH (09:00)
[2018-01-22] MEDS: COLLAGENASE 30 GM OINTMENT TOP SCH (09:00)
--- NOTE | 2018-01-22 09:00 | CON ---
History Of Present Illness: This is an 82-year-old female, known to me from a shelter admission. The patient had a significant history of left BKA, which has a scar tissue and a scab formation at the stump location and then also has right foot with some gangrenous changes in first, second, third, and fifth toes. The patient came in after being discharged from the nursing facility with swelling and secretion and pain in her left leg. The patient also had a temperature of 99 degrees. Past Medical History: Depression, reflux, end-stage renal disease on dialysis, hypertension, pacemaker, insulin-dependent diabetes, hypercholesteremia, PVD, stent in heart and kidney, carpal tunnel in the right hand and bladder suspension, hysterectomy. Surgical History: Nonsmoker, nondrinker. Family History: Noncontributory. Medications: Zosyn and Bactrim. Allergies: PLAVIX, MORPHINE, CODEINE, SIMVASTATIN, ALTACE. Review of Systems: A 10-point review was performed. Physical Examination: General: This is an 82-year-old female, lying in bed, not in any acute cardiopulmonary distress. Vital Signs: Temperature 98, pulse 88, respirations 16, blood pressure 130/70. HEENT: Unremarkable. Neck: Supple. Lungs: Basal crackles. Heart: S1, S2. Regular. Abdomen: Soft, nontender. Bowel sounds positive. Extremities: Left BKA wound noted. Right foot ulceration noted. Laboratory Data: Shows WBC 8.1, hemoglobin 8.9, platelets of 247. Chemistry shows sodium 137, potassium 4.4, chloride 102, bicarb 28, BUN 26, creatinine 0.6 , glucose 130. Micro data shows MRSA from the right foot wound culture. Nuclear bone scan shows that the patient has osteomyelitis MTP joint placed on right foot. Assessment And Plan: Right foot osteomyelitis, first metatarsal joint; nonhealing left BKA wound; right foot first, second, third, and fifth toe gangrenous changes with peripheral vascular disease. Poor prognosis, possible in the near future left AKA and right BKA. Prognosis guarded. Continue supportive care and antibiotics. Consider half-way facility. We will follow the patient as needed. TONE/MODL Voice ID: [id number] Report ID: [id number] MARIAELENA
[2018-01-22] MEDS: PRASUGREL (EFFIENT) 10 MG TAB PO SCH (09:58)
[2018-01-22] MEDS: CITALOPRAM 10 MG TABLET PO SCH (09:58)
[2018-01-22] MEDS: LISINOPRIL 20 MG TAB PO SCH (09:58)
[2018-01-22] MEDS: PANTOPRAZOLE 40 MG INJ IVP SCH (09:58)
[2018-01-22] MEDS: CARVEDILOL 3.125 MG TAB PO SCH ×2 (09:59→21:17)
[2018-01-22] MEDS: SMZ./TMP. 800/160 MG TABLET PO SCH ×2 (09:59→21:18)
[2018-01-22] MEDS: CA ACETATE 667 MG CAP PO SCH (09:59)
[2018-01-22] MEDS: PROMOD 30 ML DOSE PO SCH ×2 (10:01→21:20)
[2018-01-22] MEDS: HYDROCODONE/APAP 5/325 MG TAB PO PRN ×2 (14:43→21:17)
--- NOTE | 2018-01-22 16:24 | PN ---
Date of Progress Note: 01/22/2018 Subjective: The patient complaining of diaper rash. The patient was admitted with some infection an d gangrenous toe. Physical Examination: Vital Signs: Blood pressure 167/71, pulse of 74. Chest: Clear to auscultation. Heart: S1 and S2 regular. Abdomen: Soft, nontender. Extremities: Left below-knee amputation. Dressing on the stump, right 3 toe gangrene. Dressing as left. Laboratory Data: WBC 8.1, H and H 8.9/27.5, platelets 247. Sodium 138, potassium 4.2, bicarb 27, BU N 16, creatinine 3.8, GFR of 11, calcium 8.4, phos 2.7, albumin 2.1. Corrected calcium is 10. Current Medications: The patient on its include Zosyn, Bactrim, and vancomycin. Epogen, carvedilol 3.125, clonidine 0.1 as needed, lisinopril 20, gabapentin, PhosLo. Assessment And Plan: 1.End-stage renal disease, normal volume. I am going to continue dialysis. We will arrange for macey lysis tomorrow. She been dialyzed Sunday, Sunday and Sunday. 2.Secondary hyperparathyroid. Calcium and phosphorus on the goal. In fact phosphorus on the lower side. I am going to go ahead and discontinue PhosLo. We will monitor the patient. 3.Diaper rash. Start the patient on nystatin local. 4.Methicillin-resistant Staphylococcus aureus wound infection with osteomyelitis on the right foot. The patient was started on Vanco and Bactrim, we will continue. The patient is going to need vancom ycin for 6 week, then re-evaluate. We will follow up with the primary. 5.Diabetes, as by primary. 6.Peripheral vascular disease with ischemic toe, as above. MARY/MICHAEL Voice ID: [id number] Report ID: [id number]
[2018-01-22] MEDS: NYSTATIN PWDR 100000 UNIT/GM TOP SCH ×2 (17:15→21:19)
--- NOTE | 2018-01-22 21:11 | PN ---
Subjective: The patient lying in bed, not in any acute distress. Objective: Vital Signs: Temperature 98, pulse 77, respirations 18, blood pressure 173/76. Lungs: Basilar crackles. Heart: S1, S2. Regular. Abdomen: Soft, nontender. Bowel sounds positive. Extremities: Left BKA wound noted. Right foot wound noted. Laboratory Data: No new labs available at this time. Micro data from 01/19 shows MRSA in right foot wound. Currently patient is on vancomycin. Assessment And Plan: Right foot osteomyelitis, left below-knee amputation wound, healing. Continue wound care and IV antibiotic, total course of 6 weeks. We will follow the patient as needed. TONE/MODAmie Voice ID: [id number] Report ID: [id number]
[2018-01-22] MEDS: QUETIAPINE 25 MG TAB PO SCH (21:17)
[2018-01-22] MEDS: LORAZEPAM 1 MG TABLET PO PRN (21:17)
[2018-01-22] MEDS: ATORVASTATIN 80 MG TAB PO SCH (21:18)
[2018-01-22] MEDS: LATANOPROST EACH EYE SCH (21:19)
--- NOTE | 2018-01-23 00:06 | PN ---
Date of Progress Note: 01/22/2018 The patient is status quo. The wound did not look much different. After discussion with various phy sicians involved, it was felt that we should attempt the IV antibiotics, p.o. antibiotics for 4-6 wee ks, and then make a reassessment as far as the osteo is concerned. Arrangements are in progress to montse lechuga to [facility]. HR/MODL Voice ID: [id number] Report ID: [id number]
[2018-01-23] MEDS: INSULIN -REGULAR HUMAN 50 UNIT/0.5 ML ML SQ SCH ×2 (07:30→11:30)
[2018-01-23] MEDS: NYSTATIN PWDR 100000 UNIT/GM TOP SCH (09:00)
[2018-01-23] MEDS: LISINOPRIL 20 MG TAB PO SCH ×2 (09:00)
[2018-01-23] MEDS: SMZ./TMP. 800/160 MG TABLET PO SCH (09:00)
[2018-01-23] MEDS: PROMOD 30 ML DOSE PO SCH (09:00)
[2018-01-23] MEDS: CARVEDILOL 3.125 MG TAB PO SCH (09:00)
[2018-01-23] MEDS: PRASUGREL (EFFIENT) 10 MG TAB PO SCH (09:21)
[2018-01-23] MEDS: PANTOPRAZOLE 40 MG INJ IVP SCH (09:21)
[2018-01-23] MEDS: CITALOPRAM 10 MG TABLET PO SCH (09:21)
[2018-01-23] MEDS: GABAPENTIN 300 MG CAP PO SCH ×2 (09:22)
[2018-01-23] MEDS: HYDROCODONE/APAP 5/325 MG TAB PO PRN (09:51)
[2018-01-23 12:03] VITALS: O2SAT 100
[2018-01-23] MEDS: COLLAGENASE 30 GM OINTMENT TOP SCH (14:00)
[2018-01-23] MEDS: MUPIROCIN 2% OINT 22GM TUBE TOP SCH (14:00)
[2018-01-23 15:41] VITALS: BP 157/67; TEMP 98
--- NOTE | 2018-01-23 16:37 | PN ---
Subjective: The patient is doing well. The patient was seen by ID, recommended antibiotic. The pat ient is going to need antibiotic for 6 weeks, and depending on the response, we will decide if the pa tient is going to need amputation or debridement for the time being. Physical Examination: General: When I saw the patient, the patient lying on her back, comfortable, not in any distress. Vital signs: Blood pressure 106/55, pulse of 68. Afebrile. Chest: Clear to auscultation. Heart: S1, S2. Systolic murmur. Abdomen: Soft, nontender. Extremities: Left rogcg-sni-lobb amputation with dressing on the stump. Right foot in dressing. Wh en I saw yesterday, she had 3 toes gangrene. Laboratory Data: WBC 8.1, H and H 8.9/27.5. Sodium 138, potassium 4.2, bicarb 27, BUN 15, creatinin e 3.8, calcium 8.4. Medications: Current medications the patient on its include nystatin, vancomycin, bactrim, Epogen, c lonidine 0.1 p.r.n., Carvedilol 3.125, lisinopril 20 daily, citalopram, quetiapine, Zofran, lorazepam , insulin, and pain medication. Assessment And Plan: 1.End-stage renal disease. I am going to put the patient back on her regular schedule as TTS, and w e will follow up the patient. 2.Hypertension, controlled, optimal. Discontinue clonidine. 3.Anemia of chronic kidney disease, stable. Continue Epogen. 4.Secondary hyperparathyroid, controlled. Off binder. We will follow up with Primary. 5.Osteomyelitis. We will follow up with ID and Primary. Continue vancomycin and Bactrim for the ti me being. 6.Diabetes, as by Primary. 7.Peripheral vascular disease. Continue supportive care. MARY/MICHAEL Voice ID: [id number] Report ID: [id number]
== END 2018-01-23 16:25 | DRG 862 ==
LOC: ER 19:48 → ERHOLD 22:02 → 4TH 23:01
PROVIDERS: ADMIT Family Medicine; ATTEND Family Medicine
PROC: 5A1D70Z Performance of Urinary Filtration, Intermittent, Less than 6 Hours Per Day (ICD-10-PCS; principal; 2018-01-14)
PROC: 5A1D70Z Performance of Urinary Filtration, Intermittent, Less than 6 Hours Per Day (ICD-10-PCS; 2018-01-16)
PROC: 5A1D70Z Performance of Urinary Filtration, Intermittent, Less than 6 Hours Per Day (ICD-10-PCS; 2018-01-18)
PROC: 5A1D70Z Performance of Urinary Filtration, Intermittent, Less than 6 Hours Per Day (ICD-10-PCS; 2018-01-21)
DX: T81.42XA Infection following a procedure, deep incisional surgical site, initial encounter (principal); N18.6 End stage renal disease; T87.44 Infection of amputation stump, left lower extremity; I12.0 Hypertensive chronic kidney disease with stage 5 chronic kidney disease or end stage renal disease; N25.81 Secondary hyperparathyroidism of renal origin; E11.52 Type 2 diabetes mellitus with diabetic peripheral angiopathy with gangrene; I96 Gangrene, not elsewhere classified; L97.518 Non-pressure chronic ulcer of other part of right foot with other specified severity; M86.171 Other acute osteomyelitis, right ankle and foot; Z99.2 Dependence on renal dialysis; E11.22 Type 2 diabetes mellitus with diabetic chronic kidney disease; E78.5 Hyperlipidemia, unspecified; F32.9 Major depressive disorder, single episode, unspecified; K21.9 Gastro-esophageal reflux disease without esophagitis; Z95.0 Presence of cardiac pacemaker; E11.40 Type 2 diabetes mellitus with diabetic neuropathy, unspecified; Z79.4 Long term (current) use of insulin; N25.0 Renal osteodystrophy; I25.2 Old myocardial infarction; I25.10 Atherosclerotic heart disease of native coronary artery without angina pectoris; Z95.5 Presence of coronary angioplasty implant and graft; E11.21 Type 2 diabetes mellitus with diabetic nephropathy; E11.621 Type 2 diabetes mellitus with foot ulcer; D63.1 Anemia in chronic kidney disease; E11.69 Type 2 diabetes mellitus with other specified complication; B95.62 Methicillin resistant Staphylococcus aureus infection as the cause of diseases classified elsewhere
CPT/HCPCS: 36415; 73700; 76377; 78315; 80048; 80069; 80202; 82962; 83735; 84145; 85025; 86704; 86706; 86803; 87040; 87070; 87075; 87077; 87186; 87205; 87340; 90935; 96365; 96366; 99285; A9503; C9113; J2543; J3370; J3590; Q4081

== ENCOUNTER 2018-02-20 14:35 | Inpatient (IN) | payer OTHER ==
--- OUTSIDE RECORDS SUMMARY | 2018-02-20 14:37 | XMS REPORT | Clinical Summary ---
:1935 Author Organization [facility] Address [address] [place] [address] Care Team Providers Name Role Phone Arslan Lema MD Primary Care Provider Allergies Active Allergy Reactions Severity Noted Date Comments Ramipril 10/30/2016 Codeine GI Intolerance 10/30/2016 Propoxyphene N-Acetaminophen 10/30/2016 Hydrocodone 10/30/2016 Feels like "drunk" Morphine Itching 10/30/2016 Clopidogrel GI Intolerance 10/30/2016 Enalapril Maleate 10/30/2016 Hydrocodone-Acetaminophen 10/30/2016 Simvastatin GI Intolerance 10/30/2016 Medications Medication Sig Dispensed Refills Start Date End Date Status bimatoprost (LUMIGAN) Administer 1 drop 0 Active 0.03 % ophthalmic to both eyes drops nightly. insulin regular Inject under the 0 Active (HumuLIN-R, skin 3 (three) NovoLIN-R) 100 times a day. Per unit/mL injection sliding scale atorvastatin Take 40 mg by mouth 0 Active (LIPITOR) 40 MG daily. tablet hydrALAZINE Take 50 mg by mouth 0 Active (APRESOLINE) 50 MG 3 (three) times a tablet day. lisinopril Take 20 mg by mouth 0 Active (PRINIVIL,ZESTRIL) 20 2 (two) times a mg tablet day. QUEtiapine (SEROquel) Take 50 mg by mouth 0 Active 50 MG tablet nightly. gabapentin Take 300 mg by 0 Active (NEURONTIN) 300 mg mouth 2 (two) times capsule a day. warfarin (COUMADIN) 4 Take 4 mg by mouth 0 Active MG tablet daily. B complex-minerals Take by mouth. 0 Active tablet calcium acetate TK 2 CS PO WITH 11 10/07/2016 Active (PHOSLO) 667 mg MEALS AND 1 C PO capsule WITH SNACK carvedilol (COREG) Take 6.25 mg by 0 Active 6.25 MG tablet mouth 2 (two) times a day with meals. citalopram (CeleXA) Take 1.5 tablets by 0 08/17/2016 Active 20 MG tablet mouth daily. clonIDINE (CATAPRES) TK 1 T PO Q 8 H PRN 2 10/03/2016 Active 0.1 MG tablet IF SYSTOLIC BLOOD PRESSURE IS GREATER THAN 160-180 fluticasone (FLONASE) USE 1 SPRAY IEN BID 5 10/25/2016 Active 50 mcg/actuation nasal spray GÓMEZ-CASSIA RX 1-60-300 1 tablet daily. 8 09/27/2016 Active mg-mg-mcg tablet Active Problems No known active problems Social History Tobacco Use Types Packs/Day Years Used Date Former Smoker Cigarettes Quit: 1989 Smokeless Tobacco: Never Used Alcohol Use Drinks/Week oz/Week Comments Yes wine occasionally Sex Assigned at Date Recorded Not on file Job Start Date Occupation Industry Not on file Not on file Not on file Travel History Travel Start Travel End No recent travel history available. Last Filed Vital Signs Not on file Plan of Treatment Health Maintenance Due Date Last Done Comments SHINGRIX VACCINE (1 of 2) 1986 ZOSTER VACCINE 1996 PNEUMOCOCCAL POLYSACCHARIDE VACCINE AGE 65 AND OVER 2001 PNEUMOCOCCAL-13 2001 INFLUENZA VACCINE 10/24/2017 Implants Implanted Type Area Field Checker Device Shelf Model / Identifier Expiration Serial / Date Lot Graft Vasclr Acuseal 40cm 6mm - [id number] - [id number] Vascular N/A: N/A W L GORE 05/19/2019 [id number] / Implanted: Qty: 1 on 11/08/2016 by Herman Fraga MD Graft [id number] / [id number] Results Not on fileafter 02/19/2017 Insurance Payer Benefit Plan / Group Subscriber ID Type Phone Address MEDICARE MEDICARE PART A AND B xxxxxxxxxx Medicare [place], [place] Advance Directives Patient has advance care planning documents on file. For more information, please contact:Joseluis Gentile[address] [place] [address]
--- NOTE | 2018-02-20 15:42 | RAD REPORT ---
EXAM DESCRIPTION: CT - Head Brain Wo Cont - 02/20/2018 3:18 pm CLINICAL HISTORY: Transient alteration of awareness COMPARISON: From July 03, 2017 TECHNIQUE: Axial 5 mm thick images of the head were obtained without IV contrast. All CT scans are performed using dose optimization technique as appropriate and may include automated exposure control or mA/KV adjustment according to patient size. FINDINGS: No intracranial hemorrhage, mass, edema or shift of mid-line structures. No acute infarcti on changes seen. Advanced atrophy and chronic ischemic changes are present. Ventricles are in proport ion to volume loss. Physiologic and dense arterial tree calcifications are present. Intracranial find ings are similar to comparison. Mastoid air cells and visualized portions of the paranasal sinuses are clear. No acute bony findings. IMPRESSION: Advanced atrophy and chronic ischemic change similar to comparison. No acute finding.
--- NOTE | 2018-02-20 15:53 | RAD REPORT ---
EXAM DESCRIPTION: RAD - Chest Single View - 02/20/2018 3:39 pm CLINICAL HISTORY: Cough and congestion, altered mental status COMPARISON: October 16 TECHNIQUE: AP portable chest image was obtained 1525 hours . FINDINGS: Low lung volumes noted. Diffusely prominent interstitial markings are present progressive from comparison. Cardiomegaly is present but not substantially different. Mild vascular engorgement. Right-sided pacemaker in place. No measurable pleural effusion and no pneumothorax. No acute bony abn ormality seen. No acute aortic findings suspected. IMPRESSION: Increased interstitial markings above baseline fibrosis. Failure/volume overload is favored over infectious etiology.
[2018-02-20 16:09] LABS: Absolute Lymphocytes (CBC) 1.2 K/uL (0.7-4.9); Absolute Monocytes 0.5 K/uL (0.1-1.3); Absolute Neutrophil 5.8 K/uL (1.8-8.0); Eosinophils % 1.8 % (0-4.4); Hematocrit 31.1 % (36.0-45.0); Lymphocytes % 15.9 % (15.3-44.8); MCH 28.1 pg (27.0-35.0); MPV 8.9 fL (7.6-11.3); Monocytes % 6.5 % (3.3-12.3); RBC Red Blood Cell Count 3.62 M/uL (3.86-4.86)
[2018-02-20 16:14] LABS: Protime INR 1.26
--- NOTE | 2018-02-20 17:02 | EDPHYS ---
Physician Documentation [facility] Name: Dianelys Carroll Age: 82 yrs Sex: Female : 1935 Arrival Date: 02/20/2018 Time: 14:49 Bed 20 Private MD: ED Physician Michael Tamayo HPI: 02/20 15:36 This 82 yrs old Female presents to ER via EMS with complaints of Altered aron Mental Status. 15:39 The patient presents with confusion. Onset: The symptoms/episode began/occurred 3 aron day(s) ago. Possible causes: unknown. Associated signs and symptoms: Pertinent positives: diarrhea, nausea, vomiting. Patient's baseline: Neuro: alert and fully oriented, alert but confused. The patient has experienced similar episodes in the past, a few times. Historical: - Allergies: 18:12 altase; tl3 18:12 clopidogrel bisulfate; tl3 18:12 Codeine; tl3 18:12 Demerol; tl3 18:12 enalapril maleate; tl3 18:12 enalaprilat dihydrate; tl3 18:12 Ibuprofen; tl3 18:12 OPIATES; tl3 18:12 propoxyphene napsylate; tl3 18:12 Ramipril; tl3 18:12 Simvastatin; tl3 18:12 Vioxx; tl3 - Home Meds: 18:12 Ativan 1 mg oral tab 1 tab every 6 hours for Anxiety [Active]; calcium acetate 667 mg tl3 oral cap 2 caps twice a day [Active]; carvedilol 3.125 mg Oral tab 1 tab 2 times per day [Active]; citalopram 20 mg tab once daily for Anxiety with Depression [Active]; clonidine HCl 0.1 mg Oral tab 1 tab 2 times per day [Active]; Effient 10 mg oral tab 1 tab once daily [Active]; gabapentin 300 mg Oral cap 1 cap nightly [Active]; Imodium Oral [Active]; Lipitor 40 mg Oral tab 1 tab once daily [Active]; tramadol 50 mg Oral tab [Active]; novolin SS [Active]; lisinopril 20 mg Oral tab 1 tab once daily [Active]; - PMHx: 18:12 Anemia; Diabetes - IDDM; Dialysis; ESRD; High Cholesterol; hypercalcemia; tl3 HYPERGLYCEMIA; hyperkalemia; hyperparathyroidism; Pacemaker; - PSHx: 18:12 left BKA; tl3 - Immunization history:: Adult Immunizations up to date. - Social history:: Smoking status: unknown. - Ebola Screening: : No symptoms or risks identified at this time. ROS: 15:40 Constitutional: Negative for fever, chills, and weight loss, Eyes: Negative for injury, aron pain, redness, and discharge, ENT: Negative for injury, pain, and discharge, Neck: Negative for injury, pain, and swelling, Cardiovascular: Negative for chest pain, palpitations, and edema, Respiratory: Negative for shortness of breath, cough, wheezing, and pleuritic chest pain, Abdomen/GI: Negative for abdominal pain, nausea, vomiting, diarrhea, and constipation, Back: Negative for injury and pain, : Negative for injury, bleeding, discharge, and swelling, Skin: Negative for injury, rash, and discoloration, Psych: Negative for depression, anxiety, suicide ideation, homicidal ideation, and hallucinations, Allergy/Immunology: Negative for hives, rash, and allergies, Endocrine: Negative for neck swelling, polydipsia, polyuria, polyphagia, and marked weight changes, Hematologic/Lymphatic: Negative for swollen nodes, abnormal bleeding, and unusual bruising. 15:40 MS/extremity: Positive for decreased range of motion, pain. Exam: 15:40 Constitutional: This is a well developed, well nourished patient who is awake, alert, aron and in no acute distress. Head/Face: Normocephalic, atraumatic. Eyes: Pupils equal round and reactive to light, extra-ocular motions intact. Lids and lashes normal. Conjunctiva and sclera are non-icteric and not injected. Cornea within normal limits. Periorbital areas with no swelling, redness, or edema. ENT: Nares patent. No nasal discharge, no septal abnormalities noted. Tympanic membranes are normal and external auditory canals are clear. Oropharynx with no redness, swelling, or masses, exudates, or evidence of obstruction, uvula midline. Mucous membranes moist. Neck: Trachea midline, no thyromegaly or masses palpated, and no cervical lymphadenopathy. Supple, full range of motion without nuchal rigidity, or vertebral point tenderness. No Meningismus. Chest/axilla: Normal chest wall appearance and motion. Nontender with no deformity. No lesions are appreciated. Cardiovascular: Regular rate and rhythm with a normal S1 and S2. No gallops, murmurs, or rubs. Normal PMI, no JVD. No pulse deficits. Respiratory: Lungs have equal breath sounds bilaterally, clear to auscultation and percussion. No rales, rhonchi or wheezes noted. No increased work of breathing, no retractions or nasal flaring. Abdomen/GI: Soft, non-tender, with normal bowel sounds. No distension or tympany. No guarding or rebound. No evidence of tenderness throughout. Back: No spinal tenderness. No costovertebral tenderness. Full range of motion. Female : Normal external genitalia. Skin: Warm, dry with normal turgor. Normal color with no rashes, no lesions, and no evidence of cellulitis. MS/ Extremity: Pulses equal, no cyanosis. Neurovascular intact. Full, normal range of motion. Psych: Awake, alert, with orientation to person, place and time. Behavior, mood, and affect are within normal limits. 15:40 Neuro: Orientation: is normal, appropriate for stated age, no acute changes, Mentation: slow to respond, Cerebellar function: is grossly normal based on the patient's age, no acute changes, Motor: moves all fours, Sensation: no obvious gross deficits, appropriate no acute changes, Gait: not tested. Babinski testing is normal, seizure activity, is not displayed by the patient. Vital Signs: 14:53 BP 146 / 52; Pulse 79; Resp 18; Temp 98(O); Pulse Ox 96% ; tl3 16:00 BP 155 / 61; Pulse 79; Resp 18; Pulse Ox 98% on R/A; tl3 18:17 BP 142 / ???; Pulse 96; Resp 18; Pulse Ox 99% on R/A; tl3 MDM: 14:58 Patient medically screened. [facility] 15:41 Data reviewed: vital signs, nurses notes, lab test result(s), EKG, radiologic studies, [facility] CT scan, plain films. 02/20 14:57 Order name: Basic Metabolic Panel; Complete Time: 17:34 [facility] 02/20 14:57 Order name: CBC with Diff; Complete Time: 17:24 [facility] 02/20 14:57 Order name: LFT's; Complete Time: 17:34 [facility] 02/20 14:57 Order name: Magnesium; Complete Time: 17:34 [facility] 02/20 14:57 Order name: NT PRO-BNP; Complete Time: 17:34 [facility] 02/20 14:57 Order name: PT-INR; Complete Time: 17:00 [facility] 02/20 14:57 Order name: Troponin (emerg Dept Use Only); Complete Time: 17:34 [facility] 02/20 14:57 Order name: Urine Culture [facility] 02/20 14:57 Order name: Lipase; Complete Time: 17:34 [facility] 02/20 15:39 Order name: Stool Culture [facility] 02/20 15:39 Order name: Fecal Leukocyte Stain [facility] 02/20 15:39 Order name: CDIFF [facility] 02/20 16:13 Order name: CBC Smear Scan; Complete Time: 17:24 [facility] 02/20 17:09 Order name: Basic Metabolic Panel [facility] 02/20 14:57 Order name: XRAY Chest (1 view); Complete Time: 17:00 [facility] 02/20 14:57 Order name: EKG; Complete Time: 14:59 [facility] 02/20 14:57 Order name: CT Head Brain wo Cont; Complete Time: 17:00 [facility] 02/20 17:09 Order name: CONS Physician Consult [facility] 02/20 17:09 Order name: Basic Metabolic Panel [facility] 02/20 17:09 Order name: CBC with Automated Diff [facility] 02/20 17:09 Order name: CBC with Automated Diff [facility] 02/20 17:09 Order name: NT PRO-BNP [facility] 02/20 17:09 Order name: NT PRO-BNP [facility] 02/20 17:09 Order name: Troponin I [facility] 02/20 17:09 Order name: Troponin I [facility] 02/20 17:09 Order name: Troponin I [facility] 02/20 17:09 Order name: Chest Single View [facility] 02/20 17:10 Order name: Chest Single View [facility] 02/20 14:57 Order name: Cardiac monitoring; Complete Time: 18:27 [facility] 02/20 14:57 Order name: EKG - Nurse/Tech; Complete Time: 18:27 [facility] 02/20 14:57 Order name: IV Saline Lock; Complete Time: 18:27 [facility] 02/20 14:57 Order name: Labs collected and sent; Complete Time: 17:54 [facility] 02/20 14:57 Order name: O2 Per Protocol; Complete Time: 17:54 [facility] 02/20 14:57 Order name: O2 Sat Monitoring; Complete Time: 17:54 [facility] 02/20 16:20 Order name: Labs - recollect needed; Complete Time: 18:26 02/20 17:09 Order name: Consistent Carb (ADA) [address] EDWA 02/20 17:09 Order name: EKG Electrocardiogram EDWA 02/20 17:09 Order name: EKG Electrocardiogram EDMS Administered Medications: 15:29 CANCELLED (Duplicate Order): NS 0.9% 1000 ml IV at 125 ml/hr continuous [facility] 18:26 Drug: Aspirin 81 mg Route: PO; tl3 Disposition: 02/20/18 17:02 Hospitalization ordered by Arslan Lema for Inpatient Admission. Preliminary diagnosis are Altered mental status, unspecified, Weakness, End stage renal disease, Unspecified combined systolic (congestive) and diastolic (congestive) heart failure, Hypokalemia. - Bed requested for Telemetry/MedSurg (Inpatient). - Status is Inpatient Admission. tl3 - Condition is Fair. - Problem is new. - Symptoms have improved. UTI on Admission? No Signatures: Dispatcher [employer] EDWA Michael Tamayo MD MD cha Williams, Irene, RN RN Shelby Grace RN RN tl3 Shawnee Mckeon Corrections: (The following items were deleted from the chart) 15:29 14:57 NS 0.9% 1000 ml IV at 125 ml/hr continuous ordered. [facility] 17:36 17:02 Hospitalization Ordered by Arslan Lema MD for Inpatient Admission. Preliminary diagnosis is Altered mental status, unspecified; Weakness; End stage renal disease; Unspecified combined systolic (congestive) and diastolic (congestive) heart failure. Bed requested for Telemetry/MedSurg (Inpatient). Status is Inpatient Admission. Condition is Fair. Problem is new. Symptoms have improved. UTI on Admission? No. aron 17:37 17:36 02/20/2018 17:02 Hospitalization Ordered by Arslan Lema MD for Inpatient [facility] Admission. Preliminary diagnosis is Altered mental status, unspecified; Weakness; End stage renal disease; Unspecified combined systolic (congestive) and diastolic (congestive) heart failure. Bed requested for Telemetry/MedSurg (Inpatient). Status is Inpatient Admission. Condition is Fair. Problem is new. Symptoms have improved. UTI on Admission? No. 17:54 14:57 Urine Dipstick-Ancillary ordered. aron tl3 18:27 17:37 02/20/2018 17:02 Hospitalization Ordered by Arslan Lema MD for Inpatient tl3 Admission. Preliminary diagnosis is Altered mental status, unspecified; Weakness; End stage renal disease; Unspecified combined systolic (congestive) and diastolic (congestive) heart failure; Hypokalemia. Bed requested for Telemetry/MedSurg (Inpatient). Status is Inpatient Admission. Condition is Fair. Problem is new. Symptoms have improved. UTI on Admission? No. aron
--- NOTE | 2018-02-20 17:02 | ER ---
Nurse's Notes [facility] Name: Dianelys Carroll Age: 82 yrs Sex: Female : 1935 Arrival Date: 02/20/2018 Time: 14:49 Bed 20 Private MD: Diagnosis: Altered mental status, unspecified;Weakness;End stage renal disease;Unspecified combined systolic (congestive) and diastolic (congestive) heart failure;Hypokalemia Presentation: 02/20 14:53 Presenting complaint: EMS states: detention felt that pt was not returning to A\T\O X tl3 3 after dialysis. Pt able to tell her name, date, president's name and the appropriate year. Transition of care: patient was received from another setting of care (long-term care [facility]), [facility]. Onset of symptoms was February 19, 2018 at 15:00. Risk Assessment: Do you want to hurt yourself or someone else? Patient reports no desire to harm self or others. Initial Sepsis Screen: Does the patient meet any 2 criteria? No. Patient's initial sepsis screen is negative. Does the patient have a suspected source of infection? Yes:. Care prior to arrival: None. 14:53 Method Of Arrival: EMS: [facility] tl3 14:53 Acuity: EFRAÍN 4 tl3 Triage Assessment: 14:53 General: Appears in no apparent distress. comfortable, slender, well groomed, well tl3 developed, well nourished, Behavior is calm, cooperative, appropriate for age. Pain: Denies pain. Neuro: No deficits noted. Level of Consciousness is awake, alert, obeys commands, Oriented to person, place, time, situation, Appropriate for age. Cardiovascular: Patient's skin is warm and dry. Respiratory: Airway is patent Respiratory effort is even, unlabored, Respiratory pattern is regular, symmetrical. GI: No signs and/or symptoms were reported involving the gastrointestinal system. : No signs and/or symptoms were reported regarding the genitourinary system. Derm: No signs and/or symptoms reported regarding the dermatologic system. Musculoskeletal: Amputation of lower left leg. Historical: - Allergies: 18:12 altase; tl3 18:12 clopidogrel bisulfate; tl3 18:12 Codeine; tl3 18:12 Demerol; tl3 18:12 enalapril maleate; tl3 18:12 enalaprilat dihydrate; tl3 18:12 Ibuprofen; tl3 18:12 OPIATES; tl3 18:12 propoxyphene napsylate; tl3 18:12 Ramipril; tl3 18:12 Simvastatin; tl3 18:12 Vioxx; tl3 - Home Meds: 18:12 Ativan 1 mg oral tab 1 tab every 6 hours for Anxiety [Active]; calcium acetate 667 mg tl3 oral cap 2 caps twice a day [Active]; carvedilol 3.125 mg Oral tab 1 tab 2 times per day [Active]; citalopram 20 mg tab once daily for Anxiety with Depression [Active]; clonidine HCl 0.1 mg Oral tab 1 tab 2 times per day [Active]; Effient 10 mg oral tab 1 tab once daily [Active]; gabapentin 300 mg Oral cap 1 cap nightly [Active]; Imodium Oral [Active]; Lipitor 40 mg Oral tab 1 tab once daily [Active]; tramadol 50 mg Oral tab [Active]; novolin SS [Active]; lisinopril 20 mg Oral tab 1 tab once daily [Active]; - PMHx: 18:12 Anemia; Diabetes - IDDM; Dialysis; ESRD; High Cholesterol; hypercalcemia; tl3 HYPERGLYCEMIA; hyperkalemia; hyperparathyroidism; Pacemaker; - PSHx: 18:12 left BKA; tl3 - Immunization history:: Adult Immunizations up to date. - Social history:: Smoking status: unknown. - Ebola Screening: : No symptoms or risks identified at this time. Screenin:16 Abuse screen: Denies threats or abuse. Nutritional screening: No deficits noted. tl3 Tuberculosis screening: No symptoms or risk factors identified. Fall Risk Secondary diagnosis (15 points) impaired mobility. Assessment: 15:16 Reassessment: No changes from previously documented assessment. tl3 16:00 Reassessment: No changes from previously documented assessment. Patient and/or family tl3 updated on plan of care and expected duration. Pain level reassessed. Patient is alert, oriented x 3, equal unlabored respirations, skin warm/dry/pink. daughter at bedside. 18:17 Reassessment: Patient appears in no apparent distress at this time. No changes from tl3 previously documented assessment. Patient and/or family updated on plan of care and expected duration. Pain level reassessed. Patient is alert, oriented x 3, equal unlabored respirations, skin warm/dry/pink. report called to JOSE Fabian. Vital Signs: 14:53 BP 146 / 52; Pulse 79; Resp 18; Temp 98(O); Pulse Ox 96% ; tl3 16:00 BP 155 / 61; Pulse 79; Resp 18; Pulse Ox 98% on R/A; tl3 18:17 BP 142 / ???; Pulse 96; Resp 18; Pulse Ox 99% on R/A; tl3 ED Course: 14:49 Patient arrived in ED. tl3 14:53 Arm band placed on right wrist. tl3 14:56 Triage completed. tl3 14:58 Michael Tamayo MD is Attending Physician. aron 15:16 CT completed. Patient tolerated procedure well. Patient moved to CT via stretcher. vr Patient moved back from CT. 15:16 Patient has correct armband on for positive identification. Bed in low position. Call tl3 light in reach. Side rails up X2. Adult w/ patient. Pulse ox on. NIBP on. 15:16 No provider procedures requiring assistance completed. tl3 15:18 CT Head Brain wo Cont In Process Unspecified. EDMS 15:28 EKG done, by air moving technician. reviewed by Michael Tamayo MD. at1 15:34 X-ray completed. Portable x-ray completed in exam room. Patient tolerated procedure ag1 well. 15:39 XRAY Chest (1 view) In Process Unspecified. EDMS 16:00 Initial lab(s) drawn, by md, sent to lab. Inserted saline lock: 20 gauge in right tl3 wrist, using aseptic technique. Blood collected. 17:01 Arslan Lema MD is Hospitalizing Provider. aron 17:52 Shelby Grace, JOSE is Primary Nurse. tl3 18:17 Patient admitted, IV remains in place. tl3 Administered Medications: 15:29 CANCELLED (Duplicate Order): NS 0.9% 1000 ml IV at 125 ml/hr continuous aron 18:26 Drug: Aspirin 81 mg Route: PO; tl3 Outcome: 17:02 Decision to Hospitalize by Provider. aron 18:17 Admitted to Med/surg accompanied by tech, via stretcher, with chart, Report called to 3 JOSE Fabian 18:17 Condition: stable 18:17 Instructed on the need for admit, Demonstrated understanding of instructions. 18:27 Patient left the ED. tl3 Signatures: Dispatcher [employer] EDMS Michael Tamayo, Eliza Anthony MD, cha, Amanda, assistant hall director EKG Tat1 Bailee Dillard1 Shelby Grace, RN RN tl3
[2018-02-20] MEDS ORDERED: IPRATROPIUM BROM 0.5MG/2.5ML NEB PRN (17:05)
[2018-02-20] MEDS ORDERED: ALBUTEROL 2.5 MG/3 ML NEB SOL NEB PRN (17:05)
[2018-02-20 17:22] LABS: Anisocytosis 1+; Blood Morphology Comment NOTED (NOT SEEN); Burr Cells 2+; Platelet Estimate ADEQ; Urine White Blood Cell Casts OK
[2018-02-20 17:29] LABS: Bilirubin Direct 0.2 mg/dL (0-0.2); Bilirubin Total 0.3 mg/dL (0.2-1.0); Magnesium 2.3 mg/dL (1.8-2.4); Potassium 3.1 mmol/L (3.5-5.1); Protein, Total 7.4 g/dL (6.4-8.2)
[2018-02-20 17:31] LABS: Troponin (Emerg Dept Use Only) 0.52 ng/mL (0.0-0.045)
[2018-02-20] MEDS: INSULIN -REGULAR HUMAN 50 UNIT/0.5 ML ML SQ SCH (21:00)
[2018-02-20] MEDS ORDERED: D50W 25 GM/50 ML SYRINGE IV PRN (21:06)
[2018-02-20] MEDS ORDERED: cloNIDine HCl 0.1 MG TAB PO ONE (21:06)
[2018-02-20] MEDS ORDERED: GLUCAGON 1 MG/VIAL IM PRN (21:06)
[2018-02-21] MEDS: CARVEDILOL 3.125 MG TAB PO SCH ×2 (05:42→16:30)
[2018-02-21] MEDS: ONDANSETRON 4 MG/2 ML VIAL IV PRN ×2 (06:12→13:32)
--- NOTE | 2018-02-21 06:45 | RAD REPORT ---
EXAM DESCRIPTION: RAD - Chest Single View - 02/21/2018 6:39 am CLINICAL HISTORY: Chest pain COMPARISON: February 20 TECHNIQUE: AP portable chest image was obtained 0622 hours . FINDINGS: Interstitial opacification remains throughout both lung lazo. No new or progressive lung parenchymal process. Heart size remains prominent. Mild vascular engorgement remains. No pneumothora x or enlarging pleural effusion. No acute bony abnormality seen. No acute aortic findings suspected. IMPRESSION: Diffuse lung parenchymal process similar to comparison. No new or progressive finding.
--- NOTE | 2018-02-21 07:20 | EKG ---
Test Date: 2018-02-20 Test Time: 15:06:36 Furniture Mover Helper: EMERY MEASUREMENT RESULTS: Intervals: Rate: 79 AR: 202 QRSD: 78 QT: 406 QTc: 465 [place]: P: 100 AR: 202 QRS: -40 T: 102 INTERPRETIVE STATEMENTS: Normal sinus rhythm Left axis deviation Low voltage QRS Inferior infarct, age undetermined Cannot rule out Anterior infarct, age undetermined Abnormal ECG Compared to ECG 11/19/2017 12:41:00 Left-axis deviation now present Low QRS voltage now present Myocardial infarct finding now present Ventricular-paced complex(es) or rhythm no longer present Electronically Signed On 02-21-18 07:19:32 PRESSURE CONTROLLER by Marcelo Napoles
[2018-02-21] MEDS: INSULIN -REGULAR HUMAN 50 UNIT/0.5 ML ML SQ SCH ×4 (07:30→20:52)
[2018-02-21 08:04] LABS: Absolute Lymphocytes (CBC) 0.6 K/uL (0.7-4.9); Absolute Monocytes 0.5 K/uL (0.1-1.3); Absolute Neutrophil 5.5 K/uL (1.8-8.0); Basophils % 1.2 % (0-1.3); Eosinophils % 1.9 % (0-4.4); Hematocrit 28.9 % (36.0-45.0); Lymphocytes % 9.4 % (15.3-44.8); MCH 28.4 pg (27.0-35.0); MCV 85.7 fL (80-100); MPV 8.3 fL (7.6-11.3); RBC Red Blood Cell Count 3.37 M/uL (3.86-4.86)
[2018-02-21 08:19] LABS: Potassium 3.2 mmol/L (3.5-5.1)
[2018-02-21] MEDS ORDERED: LISINOPRIL 20 MG TAB PO SCH (09:00)
[2018-02-21] MEDS ORDERED: cloNIDine HCl 0.1 MG TAB PO PRN ×2 (09:00→11:51)
[2018-02-21] MEDS ORDERED: DIPHENHYDRAMINE 25 MG TAB/CAP PO PRN (11:51)
--- NOTE | 2018-02-21 13:20 | P.CNS ---
Date of Consult: 02/21/18 Reason for Consult: ESRD and volume management Chief Complaint: AMS History of Present Illness: AN 82-year-old female, PMHx of hypertension; ESRD on hemodialysis at [facility], HLD , HTN , DM with PVD and lt BKA and Rt foot infection , CAD with UT and CHD and COPD pt was admitted for AMS now Pt , AAOX 2-3 , cant remeber what happened, head CT : not significant ca ok, BS >70 , afebrile no leuckocytosis Allergies ramipril [From Altace] Allergy (Unknown, Verified 06/27/17 03:26) Hives/Rash acetaminophen [From Vicodin] Allergy (Verified 02/20/18 20:23) unknown clopidogrel bisulfate [From Plavix] Allergy (Verified 06/27/17 03:26) Hives enalapril maleate [From Vasotec] Allergy (Verified 06/27/17 03:26) Hives hydrocodone [From Vicodin] Allergy (Verified 02/20/18 20:23) unknown morphine Allergy (Verified 06/27/17 03:26) Itching/Hives/Rash propoxyphene napsylate [From Darvocet-N 100] Allergy (Verified 06/27/17 03:26) Hives/Rash simvastatin [From Zocor] Allergy (Verified 06/27/17 03:26) Hives/Rash codeine [Codeine] Adverse Reaction (Mild, Verified 06/27/17 03:26) vomiting rash Home Medications: Atorvastatin Calcium [Lipitor] 80 mg PO BEDTIME 02/20/18 Calcium Acetate [Phoslo] 2 cap PO BID 02/20/18 Carvedilol [Coreg*] 1 tab PO BID 02/20/18 Citalopram Hydrobromide [Citalopram HBr] 1 tab PO DAILY 02/20/18 Clonidine HCl [Catapres] 0.1 mg PO Q12HP PRN 02/20/18 Diphenhydramine [Benadryl*] 25 mg PO Q12HP PRN 02/20/18 Gabapentin 1 cap PO TID 02/20/18 Margarita-Lanta 30 ml PO Q4HP PRN 02/20/18 Insulin -Regular Human [Novolin -R*] See Protocol SQ ACHS 02/20/18 LORazepam [Ativan*] 1 mg PO Q6HP PRN 02/20/18 Latanoprost/Pf [Latanoprost 0.005% Eye Drop] 1 gtt EACH EYE BEDTIME 02/20/18 Lisinopril [Prinivil*] 20 mg PO DAILY 02/20/18 Ondansetron HCl [Zofran] 4 mg PO Q6HP PRN 02/20/18 Prasugrel Hydrochloride [Effient*] 1 tab PO DAILY 02/20/18 Smz./Tmp. [Bactrim Ds 800 MG/160 MG*] 1 tab PO BID 02/20/18 Tramadol HCl [Ultram] 2 tab PO Q4HP PRN 02/20/18 Vancomycin HCl in Dextrose 5 % [Vancomycin 1.25 Gram/250Ml-D5w] 1 bag IV SEECOM 02/20/18 - Past Medical/Surgical History Diabetic: Yes -: depression -: GERD -: HTN -: ESRD -: PACEMAKER -: IDDM -: high cholesterol -: PVD -: STENTS IN HEART -: STENT IN KIDNEY -: CARPAL TUNNEL R HAND -: BLADDER SUSPENSION -: Hysterectomy - Family History Father Notes: bleeding ulcers Mother Medical History: Heart disease, Hypertension, Stroke Brother Medical History: Heart disease, Diabetes, Stroke, Cancer Notes: esphogeal cancer Sister Medical History: Heart disease, Hypertension, Diabetes - Social History Smoking Status: Unknown if ever smoked Alcohol use: Yes CD- Drugs: No Caffeine use: Yes Physical Examination Temp Pulse Resp BP Pulse Ox 97.1 F 81 17 176/81 H 95 02/21/18 08:00 02/21/18 08:00 02/21/18 08:00 02/21/18 08:00 02/21/18 08:00 General: Oriented x2, Oriented x1 HEENT: Atraumatic Neck: Supple, Without JVD or thyroid abnormality Respiratory: Clear to auscultation bilaterally Cardiovascular: No edema, Regular rate/rhythm, Normal S1 S2 Laboratory Data (last 24 hrs) 02/20/18 16:30: Sodium 135 L, Potassium 3.1 L, BUN 25 H, Creatinine 4.50 H, Glucose 78, Magnesium 2.3, Total Bilirubin 0.3, AST 16, ALT 12, Alkaline Phosphatase 83, Lipase 72 L 02/20/18 15:45: PT 14.9 H, INR 1.26 02/20/18 15:45: WBC 7.8 D, Hgb 10.2 L, Hct 31.1 L, Plt Count 242 - Problems (1) Altered mental status Onset Date: 02/21/18 Current Visit: No Status: Acute (2) ESRD (end stage renal disease) Onset Date: 06/17/14 Current Visit: No Status: Chronic (3) PVD (peripheral vascular disease) Onset Date: 06/28/17 Current Visit: No Status: Chronic (4) Status post below knee amputation of left lower extremity Current Visit: No Status: Chronic Conclusions/Impression: AN 82-year-old female, PMHx of hypertension; ESRD on hemodialysis at [facility], HLD , HTN , DM with PVD and lt BKA and Rt foot infection , CAD with UT and CHD and COPD pt was admitted for AMS now Pt , AAOX 2-3 , cant remeber what happened, head CT : not significant ca ok, BS >70 , afebrile no leuckocytosis ESRD on HD Will Cont TTsat for now renal diet renal dose all meds AMS improved head CT : not significant ca ok, BS >70 , afebrile no leuckocytosis Hypertension, controlled, resume home meds and increase lisniopril to 40mg daily Secondary hyperparathyroidism, stable. Continue to monitor. Anemia. Start the patient on Epogen. Rt food wound Wound care Podiatry evaluation Diabetes as by primary
[2018-02-21] MEDS ORDERED: POTASSIUM CL SA 10 MEQ TAB PO ONE ×2 (13:28→23:30)
[2018-02-21] MEDS: LISINOPRIL 20 MG TAB PO SCH (13:30)
[2018-02-21] MEDS: ASPIRIN 81 MG CHEWABLE TABLET PO SCH (13:31)
[2018-02-21] MEDS: FUROSEMIDE 20 MG/ 2ML VIAL IV SCH ×2 (13:31→16:29)
[2018-02-21] MEDS: CA ACETATE 667 MG CAP PO SCH (13:45)
--- NOTE | 2018-02-21 14:58 | ECHO ---
HEIGHT: 5 ft 3 in WEIGHT: 137 lb 0 oz DATE OF STUDY: 02/21/[address]: Boris Page MD 2-DIMENSIONAL: YES M.MODE: YES DOPPLER: YES COLOR FLOW: YES TDS: NO PORTABLE: NO DEFINITY: NO BUBBLE STUDY: NO DIAGNOSIS: AORTIC STENOSIS, HIGH TROPONIN CARDIAC HISTORY: CATHERIZATION: YES SURGERY: NO PROSTHETIC VALVE: NO PACEMAKER: YES MEASUREMENTS (cm) DIASTOLIC (NORMALS) SYSTOLIC (NORMALS) IVSd 1.1 (0.6-1.2) LA Diam 3.6 (1.9-4.0) LVEF 77% LVIDd 3.6 (3.5-5.7) LVIDs 2.0 (2.0-3.5) %FS 44% LVPWd 1.4 (0.6-1.2) Ao Diam 2.8 (2.0-3.7) 2 DIMENSIONAL ASSESSMENT: RIGHT ATRIUM: NORMAL LEFT ATRIUM: NORMAL RIGHT VENTRICLE: NORMAL LEFT VENTRICLE: LEFT VENTRICULAR HYPERTROPHY TRICUSPID VALVE: NORMAL MITRAL VALVE: MITRAL ANNULAR CALCIFICATION PULMONIC VALVE: NORMAL AORTIC VALVE: STENOSIS PERICARDIAL EFFUSION: MODERATE TO LARGE AORTIC ROOT: NORMAL LEFT VENTRICULAR WALL MOTION: NORMAL DOPPLER/COLOR FLOW: MILD AORTIC, MITRAL AND TRICUSPID REGURGITATION. COMMENTS: MODERATE TO LARGE PERCARDIAL EFFUSION. NO SIGN OF TAMPONADE. MITRAL ANNULAR CALCIFICATION. MILD AORTIC, MITRAL AND TRICUSPID REGURGITATION. MILD AORTIC STENOSIS 1.6 CENTIMETERS SQUARED. LEFT VENTRICULAR HYPERTROPHY. DECREASED LEFT VENTRICULAR COMPLIANCE. NORMAL LEFT VENTRICULAR EJECTION FRACTION. TECHNOLOGIST: Lavell BETH
[2018-02-21] MEDS: LOPERAMIDE HCL 2 MG CAPSULE PO PRN (16:29)
[2018-02-21] MEDS: CLOTRIMAZ/BETAMETH CREAM 15GM TOP SCH (20:51)
[2018-02-21] MEDS: QUETIAPINE 25 MG TAB PO SCH (20:53)
[2018-02-21] MEDS ORDERED: CARVEDILOL 3.125 MG TAB PO SCH (21:00)
--- NOTE | 2018-02-21 22:06 | PN ---
Date of Progress Note: 02/21/2018 The patient is still somewhat confused this afternoon. However, according to her family, is not quit e as marked as when she came to the hospital, referred by the Physical Therapy Department and the sta ff that she is at. She underwent dialysis this morning, and lab work is basically stable for. [facility] laura, I think the combination of DICTATION ENDS HERE. HR/MODL Voice ID: [id number] Report ID: [id number]
[2018-02-21] MEDS: ACETAMINOPHEN 500 MG TAB PO PRN (23:29)
[2018-02-22] MEDS: QUETIAPINE 25 MG TAB PO SCH ×2 (00:10→19:40)
[2018-02-22] MEDS: ONDANSETRON 4 MG/2 ML VIAL IV PRN (00:31)
[2018-02-22] MEDS: ACETAMINOPHEN 500 MG TAB PO PRN ×2 (04:32→14:59)
[2018-02-22] MEDS: CARVEDILOL 3.125 MG TAB PO SCH ×2 (05:15→17:11)
[2018-02-22 05:16] VITALS: BMI 28.1
[2018-02-22 06:17] LABS: Potassium 4.2 mmol/L (3.5-5.1)
[2018-02-22] MEDS: INSULIN -REGULAR HUMAN 50 UNIT/0.5 ML ML SQ SCH ×4 (07:30→21:00)
[2018-02-22] MEDS: CA ACETATE 667 MG CAP PO SCH ×2 (08:22→17:00)
[2018-02-22] MEDS: FUROSEMIDE 20 MG/ 2ML VIAL IV SCH ×2 (08:22→17:00)
[2018-02-22] MEDS: LOPERAMIDE HCL 2 MG CAPSULE PO PRN ×2 (08:23→10:30)
[2018-02-22] MEDS: LISINOPRIL 20 MG TAB PO SCH (08:23)
[2018-02-22] MEDS: ASPIRIN 81 MG CHEWABLE TABLET PO SCH (08:23)
[2018-02-22] MEDS: CLOTRIMAZ/BETAMETH CREAM 15GM TOP SCH ×2 (09:00→19:42)
[2018-02-22 09:05] VITALS: O2SAT 95
[2018-02-22] MEDS ORDERED: EPOETIN ALFA 10,000 UNIT/ML VIAL SQ SCH (10:00)
--- NOTE | 2018-02-22 12:50 | P.PN ---
Subjective Date of Service: 02/22/18 Chief Complaint: AMS Subjective: No new changes No new complaints pericardial effusion, no tamponade will arrange for daily HD as an OP Physical Examination - Vital Signs Temperature: 97.4 F Blood Pressure: 142/76 Pulse: 72 Respirations: 18 Pulse Ox (%): 98 - Physical Exam General: Alert, In no apparent distress HEENT: Atraumatic Neck: Supple, Without JVD or thyroid abnormality Respiratory: Clear to auscultation bilaterally Cardiovascular: Normal pulses, Regular rate/rhythm, Normal S1 S2 Assessment And Plan - Current Problems (Diagnosis) (1) Altered mental status Onset Date: 02/21/18 Current Visit: No Status: Acute (2) ESRD (end stage renal disease) Onset Date: 06/17/14 Current Visit: No Status: Chronic (3) PVD (peripheral vascular disease) Onset Date: 06/28/17 Current Visit: No Status: Chronic (4) Status post below knee amputation of left lower extremity Current Visit: No Status: Chronic - Plan AN 82-year-old female, PMHx of hypertension; ESRD on hemodialysis at [facility], HLD , HTN , DM with PVD and lt BKA and Rt foot infection , CAD with ND and CHD and COPD pt was admitted for AMS now Pt ar baseline mental status , cant remeber what happened, head CT : not significant ca ok, BS >70 , afebrile no leuckocytosis ESRD on HD now with pericardial effusion will arrange for daily HD renal diet renal dose all meds AMS resolved head CT : not significant ca ok, BS >70 , afebrile no leuckocytosis Pericardial now with pericardial effusion will arrange for daily HD f/u with cardiology after 2-3 wks to reasses and pericardial window if needed Hypertension, controlled, resume home meds and increase lisniopril to 40mg daily Secondary hyperparathyroidism, stable. Continue to monitor. Anemia. Start the patient on Epogen. Rt food wound Wound care Podiatry evaluation Diabetes as by primary
--- NOTE | 2018-02-22 13:19 | CON ---
Brief History: Mrs. Carroll is 82. She is a hemodialysis patient and is slowly developing a pericardial effusion. We do not have any suspicion that it is due to an underlying malignancy. She has recentl y had a coronary stent procedure in obtuse marginal that was in September 2017. She had a left below-the- knee amputation following several stent procedures in her left leg. Outpatient Medications: Latanoprost,atorvastatin, clonidine, vancomycin, Prasugrel, calcium acetate, escitalopram, carvedilol, gabapentin, Bactrim, lisinopril, insulin, Zofran, lorazepam, diphenhydrami ne, tramadol, and Margarita-Lanta. Allergies: SHE REPORTS DRUG INTOLERANCE TO RAMIPRIL, ACETAMINOPHEN, AND PLAVIX. Physical Examination: General: She is sleepy, arousable, somewhat confused. Vital Signs: Her blood pressure is 169/81. Lungs: Clear. Heart: Does not reveal a friction rub. It reveals a regular rate and rhythm. Extremities: Left [id number] amputation. Right distal pulses are not palpable. Impression: Mrs. Degroot has a pericardial effusion that is growing. The most likely cause of it is h ypertension and end-stage renal disease. She is not exhibiting signs of tamponade, so the preferred treatment for this would be acceleration of hemodialysis. Often times an effusion like this will res olve, if dialysis is done 6 days a week for a few weeks, and I would recommend that. If not then, a pericardial window should be given, the procedure that can be done up in [place], but not here in [facility]. Thank you very much for your kind referral of Mrs. Carroll. I will follow her with you. JUDY/MICHAEL Voice ID: [id number] Report ID: [id number]
[2018-02-22 19:43] VITALS: BP 182/98
[2018-02-22 20:34] VITALS: TEMP 97.6
--- NOTE | 2018-02-22 21:19 | PN ---
Date of Progress Note: 02/22/2018 The patient is seen, much more alert, orientated today, although she does have some short periods of confusion, which has been somewhat compatible with her pattern at the assisted. The only differe nce of significance in her medication was the use of Seroquel once again and no Ativan. However, christa fox was discussed with the emergency services director at the assisted and apparently the Seroquel unless y ou have a specific diagnosis which this patient does not have, cannot be given. The Ativan, there is some question whether playing a part or not and she only had a few doses over the past few weeks and one last dose 3 days before she became "ultimately confused." However, there may be some difference in the pharmacokinetics with dialysis. The latter has been increased to 6 times a week for a couple more weeks and until a repeat echo is done to see if we can remove some more fluid. She can be disch arged back to her SNF unit, which will be done later today. Continue on the same medication, althoug h any difference medicine cramer, other than the medication for her anxiety, is the increased lisinopri l from 20 to 40. HR/MODL Voice ID: [id number] Report ID: [id number]
--- NOTE | 2018-02-26 12:49 | CON ---
Date of Consultation: 02/21/2018 Reason For Consultation: Altered mental status and elevated troponin. History Of Present Illness: Ms. Carroll is 82, she is very well known to me from her recent hospital vis it and admission. She most recently had a stent in September of 2017 of circumflex and did not really hav e any cardiac symptoms per se. She came with altered mental status. Potassium 3.1 tropon in was 0.46. Denied any chest pain, shortness of breath, nausea, vomiting, syncope. Past Medical History: 1. status post PCI x2 most recent in September 2017. 2.Diastolic congestive heart failure. 3.Diabetes. 4.Hypertension. 5. . 6.Status post recent left BKA. 7.Mild aortic stenosis. 8.History of hyperparathyroidism. Allergies: SHE IS ALLERGIC TO MORPHINE, RAMIPRIL, PLAVIX, TYLENOL, AND ZOCOR. Medications At Home: Include lisinopril, Neurontin, Ativan, Effient, Colace, clonidine . Review of Systems: Negative. Social History: Negative. Family History: Negative. Physical Examination: General: She appears to be rather somnolent. . Vital Signs: Stable. She is in sinus rhythm. HEENT: Negative. Neck: Supple with no adenopathy, JVD or thyromegaly. Chest: Clear. Cardiac: Exam revealed a regular rhythm and rate. . Abdomen: Benign. Extremities: Revealed no edema status post left BKA. Diagnostic Data: As stated earlier. White blood cell count was 4.5, hemoglobin 10.2. CT of the hea d showed chronic ischemic changes. Impression And Plan: 1.Altered mental status, most likely secondary to end-stage renal disease and chronic ischemic encep halopathy type. 2.Elevated troponin, not clinically significant with elevated BNP and this was in the face of end-st age renal disease. We will repeat an echocardiogram to see if there are any new wall motion abnormal ities. 3.Aortic stenosis that is mild. 4.Status post pacemaker placement. 5.Status post left below knee amputation. 6.Hyperparathyroidism. 7.Coronary artery disease, status post recent stent. 8.Diastolic congestive heart failure. 9.Diabetes. 10.Hypertension, poorly controlled. 11.Dyslipidemia. We will see what her echocardiogram shows prior to making any final decisions. He r mainstay of therapy remains dialysis as usual. GHAZALA/MICHAEL Voice ID: [id number] Report ID: [id number]
--- NOTE | 2018-02-26 12:52 | PN ---
Addendum: The question of her mental acuity is whether or not it is a combination of vascular insuff iciency and generalized dementia from aging process and/or medication. The latter will be adjusted. We are holding the Ativan which she has been on in the halfway and getting her back to [facility] [place] with a tentative diagnosis of dementia with behavior problems and hallucinations and/or the other me dication that she has taken for her diabetes. Therefore, some adjustments will be made during her ho spitalization and depending on her mental acuity, she may or may not be able to be discharged in next day or so. HR/MODL Voice ID: [id number] Report ID: [id number]
== END 2018-02-22 21:40 | DRG 291 ==
LOC: ER 14:35 → ERHOLD 17:03 → 2ND 18:09
PROVIDERS: ADMIT Family Medicine; ATTEND Family Medicine
PROC: 5A1D70Z Performance of Urinary Filtration, Intermittent, Less than 6 Hours Per Day (ICD-10-PCS; principal; 2018-02-20)
DX: I13.2 Hypertensive heart and chronic kidney disease with heart failure and with stage 5 chronic kidney disease, or end stage renal disease (principal); I50.43 Acute on chronic combined systolic (congestive) and diastolic (congestive) heart failure; N18.6 End stage renal disease; I31.3 Pericardial effusion (noninflammatory); N25.81 Secondary hyperparathyroidism of renal origin; G93.49 Other encephalopathy; R41.82 Altered mental status, unspecified; E11.22 Type 2 diabetes mellitus with diabetic chronic kidney disease; Z99.2 Dependence on renal dialysis; Z89.512 Acquired absence of left leg below knee; I25.10 Atherosclerotic heart disease of native coronary artery without angina pectoris; Z98.61 Coronary angioplasty status; Z95.0 Presence of cardiac pacemaker; E78.5 Hyperlipidemia, unspecified; F41.9 Anxiety disorder, unspecified; F32.9 Major depressive disorder, single episode, unspecified; J44.9 Chronic obstructive pulmonary disease, unspecified; D64.9 Anemia, unspecified
CPT/HCPCS: 36415; 70450; 71045; 80048; 80076; 82962; 83690; 83735; 83880; 84132; 84484; 85025; 85610; 87045; 87046; 87070; 87077; 87186; 87205; 87493; 89055; 90935; 93005; 93306; 99285; J1644; J1940; J2405

== ENCOUNTER 2018-02-25 21:00 | Emergency (ER) | payer OTHER ==
--- OUTSIDE RECORDS SUMMARY | 2018-02-25 21:03 | XMS REPORT | Clinical Summary ---
:1935 Author Organization [facility] Address [address] [place] [address] Care Team Providers Name Role Phone Arslan [...] INFLUENZA VACCINE 10/24/2017 Implants Implanted Type Area Music Composer Device Shelf Model / Identifier Expiration Serial / Date Lot Graft Vasclr Acuseal 40cm 6mm - [id number] - [id number] Vascular N/A: N/A W L GORE 05/19/2019 [id number] / Implanted: Qty: 1 on 11/08/2016 by Herman Fraga MD Graft [id number] / [id number] Results Not on fileafter 02/24/2017 Insurance Payer Benefit Plan / Group Subscriber ID Type Phone Address MEDICARE MEDICARE PART A AND B xxxxxxxxxx Medicare [place], [place] Advance Directives Patient has advance care planning documents on file. For more information, please contact:Joseluis Gentile[address] [place] [address]
[2018-02-25 21:38] LABS: Bilirubin Total 0.5 mg/dL (0.2-1.0); Potassium 3.3 mmol/L (3.5-5.1); Protein, Total 7.3 g/dL (6.4-8.2)
--- NOTE | 2018-02-25 21:43 | RAD REPORT ---
EXAM DESCRIPTION: RAD - Chest Single View - 02/25/2018 9:35 pm CLINICAL HISTORY: graft bleed Chest pain. COMPARISON: Chest Single View dated 02/21/2018; Chest Single View dated 02/20/2018; Chest Single Vie w dated 10/16/2017; Chest Single View dated 06/26/2017 FINDINGS: Portable technique limits examination quality. Mild interstitial pulmonary edema is present. The heart is mildly to moderately enlarged in size with a dual lead pacer device present. No displaced fractures.Aortic atherosclerosis seen. Left-sided vas cular stenting present. IMPRESSION: Mild CHF versus volume overload pattern.
[2018-02-25 21:46] LABS: Absolute Lymphocytes (CBC) 0.7 K/uL (0.7-4.9); Absolute Monocytes 0.5 K/uL (0.1-1.3); Absolute Neutrophil 5.7 K/uL (1.8-8.0); Basophils % 0.9 % (0-1.3); Eosinophils % 3.7 % (0-4.4); Hematocrit 31.2 % (36.0-45.0); Lymphocytes % 9.7 % (15.3-44.8); MCH 27.7 pg (27.0-35.0); MPV 8.7 fL (7.6-11.3); RBC Red Blood Cell Count 3.58 M/uL (3.86-4.86)
[2018-02-25 21:53] LABS: Protime INR 1.21
--- NOTE | 2018-02-25 22:43 | EDPHYS ---
Physician Documentation [facility] Name: Dianelys Carroll Age: 82 yrs Sex: Female : 1935 Arrival Date: 02/25/2018 Time: 21:02 Bed 2 Private MD: ED Physician Kaden Tran HPI: 02/25 21:22 This 82 yrs old Female presents to ER via EMS with complaints of bleeding L wa arm AV graft. 21:22 The patient has a laceration related to: had dialysis earlier today. states had to get wa stuck 3 times with 16 gauge needle. on return to the rehab center noted brisk bleed. tourniquet applied by EMS in route. The laceration(s) is(are) located on the left arm. Onset: The symptoms/episode began/occurred just prior to arrival. Associated signs and symptoms: The patient has no apparent associated signs or symptoms. The patient has experienced similar episodes in the past, a few times. The patient has not recently seen a physician. as noted above. AV graft arterial bleed. Historical: - Allergies: 21:05 altase; bb 21:05 clopidogrel bisulfate; bb 21:05 Codeine; bb 21:05 Demerol; bb 21:05 enalapril maleate; bb 21:05 enalaprilat dihydrate; bb 21:05 Ibuprofen; bb 21:05 OPIATES; bb 21:05 propoxyphene napsylate; bb 21:05 Ramipril; bb 21:05 Simvastatin; bb 21:05 Vioxx; bb - Home Meds: 21:05 Ativan 1 mg Oral TbER 1 tab every 6 hours for Anxiety [Active]; calcium acetate 667 mg bb Oral cap 2 caps twice a day [Active]; carvedilol 3.125 mg Oral TbER 1 tab 2 times per day [Active]; citalopram 20 mg TbER once daily for Anxiety with Depression [Active]; clonidine HCl 0.1 mg Oral TbER 1 tab 2 times per day [Active]; Effient 10 mg Oral TbER 1 tab once daily [Active]; gabapentin 300 mg Oral cap 1 cap nightly [Active]; Imodium Oral [Active]; Lipitor 40 mg Oral TbER 1 tab once daily [Active]; lisinopril 20 mg Oral TbER 1 tab once daily [Active]; novolin SS [Active]; tramadol 50 mg Oral TbER [Active]; - PMHx: 21:05 Anemia; Diabetes - IDDM; Dialysis; ESRD; High Cholesterol; hypercalcemia; bb HYPERGLYCEMIA; hyperkalemia; hyperparathyroidism; Pacemaker; - Immunization history:: Adult Immunizations up to date. - Social history:: Smoking status: unknown. - Ebola Screening: : No symptoms or risks identified at this time. - Family history:: not pertinent. - Hospitalizations: : The patient was recently seen at [facility]. ROS: 21:27 Constitutional: Negative for fever, chills, and weight loss, Eyes: Negative for injury, wa pain, redness, and discharge, ENT: Negative for injury, pain, and discharge, Neck: Negative for injury, pain, and swelling, Cardiovascular: Negative for chest pain, palpitations, and edema, Respiratory: Negative for shortness of breath, cough, wheezing, and pleuritic chest pain, Abdomen/GI: Negative for abdominal pain, nausea, vomiting, diarrhea, and constipation, Back: Negative for injury and pain, : Negative for injury, bleeding, discharge, and swelling, MS/Extremity: Negative for injury and deformity, Neuro: Negative for headache, weakness, numbness, tingling, and seizure. 21:27 Skin: Positive for L upper arm bleeding graft.. Exam: 21:28 Constitutional: This is a well developed, well nourished patient who is awake, alert, wa and in no acute distress. Head/Face: Normocephalic, atraumatic. Eyes: Pupils equal round and reactive to light, extra-ocular motions intact. Lids and lashes normal. Conjunctiva and sclera are non-icteric and not injected. Cornea within normal limits. Periorbital areas with no swelling, redness, or edema. ENT: Nares patent. No nasal discharge, no septal abnormalities noted. Tympanic membranes are normal and external auditory canals are clear. Oropharynx with no redness, swelling, or masses, exudates, or evidence of obstruction, uvula midline. Mucous membranes moist. Neck: Trachea midline, no thyromegaly or masses palpated, and no cervical lymphadenopathy. Supple, full range of motion without nuchal rigidity, or vertebral point tenderness. No Meningismus. Chest/axilla: Normal chest wall appearance and motion. Nontender with no deformity. No lesions are appreciated. Cardiovascular: Regular rate and rhythm with a normal S1 and S2. No gallops, murmurs, or rubs. Normal PMI, no JVD. No pulse deficits. Respiratory: Lungs have equal breath sounds bilaterally, clear to auscultation and percussion. No rales, rhonchi or wheezes noted. No increased work of breathing, no retractions or nasal flaring. Abdomen/GI: Soft, non-tender, with normal bowel sounds. No distension or tympany. No guarding or rebound. No evidence of tenderness throughout. Back: No spinal tenderness. No costovertebral tenderness. Full range of motion. MS/ Extremity: Pulses equal, no cyanosis. Neurovascular intact. Full, normal range of motion. Neuro: Awake and alert, GCS 15, oriented to person, place, time, and situation. Cranial nerves II-XII grossly intact. Motor strength 5/5 in all extremities. Sensory grossly intact. Cerebellar exam normal. Normal gait. Psych: Awake, alert, with orientation to person, place and time. Behavior, mood, and affect are within normal limits. 21:28 Skin: injury, noted 3 small lacerations possibly trauma from 16 gauge dialysis needle. profuse bleed resolved when tourniquet was taken down. Vital Signs: 21:05 BP 177 / 79; Pulse 85; Resp 14 S; Pulse Ox 98% on R/A; Weight 58.97 kg (R); Height 5 bb ft. 3 in. (160.02 cm) (R); 21:15 BP 157 / 71; Pulse 86; Resp 21; Pulse Ox 99% on R/A; lp1 21:30 BP 132 / 78; Pulse 85; Resp 15; Pulse Ox 98% on R/A; lp1 22:20 BP 149 / 80; Pulse 83; Resp 18; Pulse Ox 97% on R/A; ea 22:40 BP 159 / 69; Pulse 85; Resp 20; Pulse Ox 100% ; rr5 21:05 Body Mass Index 23.03 (58.97 kg, 160.02 cm) MDM: 21:22 Patient medically screened. ca 21:30 Differential diagnosis: will dress with surgicel and gauze. will transfer to definitive ca vascular evaluation. 22:34 Data reviewed: vital signs, nurses notes, lab test result(s), radiologic studies. Test ca interpretation: by ED physician or midlevel provider: labs noted for elevated BNP at 8881. low K at 3.3. hyperglycemia at 163. GFR of 16. CXR: mild interstitial pulm edema. Response to treatment: the patient's symptoms have markedly improved after treatment. ED course: reassessment at 2230 hrs: no active bleed. dressing intact. Accepted by vascular surgery at [facility] (pt had her graft placed there). will effect transport via ground. 22:40 Physician consultation:. wa 02/25 21:08 Order name: CBC with Diff lp1 02/25 21:08 Order name: Type And Screen lp1 02/25 21:08 Order name: PT-INR; Complete Time: 22:30 lp1 02/25 21:08 Order name: BNP; Complete Time: 22:30 lp1 02/25 21:08 Order name: CMP; Complete Time: 22:30 lp1 02/25 21:08 Order name: XRAY Chest (1 view); Complete Time: 22:31 lp1 02/25 21:48 Order name: CBC Smear Scan EDMS Administered Medications: No medications were administered Disposition: 02/25/18 22:42 Transfer ordered to [facility]. Diagnosis is Bleeding L upper arm AV graft. - Reason for transfer: Higher level of care. - Accepting physician is Dr. Fraga ([facility]). - Condition is Stable. - Problem is new. - Symptoms have improved. Signatures: Dispatcher [employer] EDHI Carmen Leo RN RN Kaden Tran MD MD wa Roque, Raymond RN RN rr5 Corrections: (The following items were deleted from the chart) 21:11 21:09 BASIC METABOLIC PANEL+C.LAB.BRZ ordered. EDHI EDMS 23:22 22:42 02/25/2018 22:42 Transfer ordered to [facility]. Diagnosis is rr5 Bleeding L upper arm AV graft. Reason for transfer: Higher level of care. Accepting physician is Dr. Fraga ([facility]). Condition is Stable. Problem is new. Symptoms have improved. gene
--- NOTE | 2018-02-25 22:43 | ER ---
Nurse's Notes [facility] Name: Dianelys Carroll Age: 82 yrs Sex: Female : 1935 Arrival Date: 02/25/2018 Time: 21:02 Bed 2 Private MD: Diagnosis: Bleeding L upper arm AV graft Presentation: 02/25 21:02 Presenting complaint: EMS states: they were toned out for report of pt having an bb arterial bleed from her dialysis graft to her left arm. Transition of care: patient was received from another setting of care ([facility]. Onset of symptoms was February 25, 2018. Risk Assessment: Do you want to hurt yourself or someone else? Patient reports no desire to harm self or others. Initial Sepsis Screen: Does the patient meet any 2 criteria? No. Patient's initial sepsis screen is negative. Does the patient have a suspected source of infection? No. Patient's initial sepsis screen is negative. Care prior to arrival: pressure dressing. 21:02 Method Of Arrival: EMS: [facility] bb 21:02 Acuity: EFRAÍN 1 bb Historical: - Allergies: 21:05 altase; bb 21:05 clopidogrel bisulfate; bb 21:05 Codeine; bb 21:05 Demerol; bb 21:05 enalapril maleate; bb 21:05 enalaprilat dihydrate; bb 21:05 Ibuprofen; bb 21:05 OPIATES; bb 21:05 propoxyphene napsylate; bb 21:05 Ramipril; bb 21:05 Simvastatin; bb 21:05 Vioxx; bb - Home Meds: 21:05 Ativan 1 mg Oral TbER 1 tab every 6 hours for Anxiety [Active]; calcium acetate 667 mg bb Oral cap 2 caps twice a day [Active]; carvedilol 3.125 mg Oral TbER 1 tab 2 times per day [Active]; citalopram 20 mg TbER once daily for Anxiety with Depression [Active]; clonidine HCl 0.1 mg Oral TbER 1 tab 2 times per day [Active]; Effient 10 mg Oral TbER 1 tab once daily [Active]; gabapentin 300 mg Oral cap 1 cap nightly [Active]; Imodium Oral [Active]; Lipitor 40 mg Oral TbER 1 tab once daily [Active]; lisinopril 20 mg Oral TbER 1 tab once daily [Active]; novolin SS [Active]; tramadol 50 mg Oral TbER [Active]; - PMHx: 21:05 Anemia; Diabetes - IDDM; Dialysis; ESRD; High Cholesterol; hypercalcemia; bb HYPERGLYCEMIA; hyperkalemia; hyperparathyroidism; Pacemaker; - Immunization history:: Adult Immunizations up to date. - Social history:: Smoking status: unknown. - Ebola Screening: : No symptoms or risks identified at this time. - Family history:: not pertinent. - Hospitalizations: : The patient was recently seen at [facility]. Screenin:51 Abuse screen: Denies threats or abuse. Nutritional screening: No deficits noted. ea Tuberculosis screening: No symptoms or risk factors identified. Fall Risk Assessment: 21:15 General: Appears uncomfortable, Behavior is calm, cooperative, appropriate for age. ea Pain: Complains of pain in left arm. Neuro: Level of Consciousness is awake, alert, obeys commands, Oriented to person, place, time, situation. Cardiovascular: Heart tones S1 S2 present Patient's skin is warm and dry. Cardiovascular: Dialysis shunt: in the left arm, with palpable thrill, with no edema, mild amount of bleeding noted. Respiratory: Airway is patent Respiratory effort is even, unlabored, Respiratory pattern is regular, symmetrical, Breath sounds are clear bilaterally. Derm: Skin is pink, warm \T\ dry. 21:15 Cardiovascular: with pacemaker. rr5 21:20 Injury Description: Puncture sustained to left upper arm punctured wound is punctured rr5 wound on the dialysis shunt. 21:59 Reassessment: Patient appears in no apparent distress at this time. Patient and/or rr5 family updated on plan of care and expected duration. Pain level reassessed. dressing at left upper arm dry and intact. 22:43 Reassessment: [facility] informed and accepted the case. rr5 23:20 Reassessment: Patient appears in no apparent distress at this time. palpable radial rr5 pulse, dressing dry and intact on the left upper arm. handover to [facility]. Patient states symptoms have improved. Vital Signs: 21:05 BP 177 / 79; Pulse 85; Resp 14 S; Pulse Ox 98% on R/A; Weight 58.97 kg (R); Height 5 bb ft. 3 in. (160.02 cm) (R); 21:15 BP 157 / 71; Pulse 86; Resp 21; Pulse Ox 99% on R/A; lp1 21:30 BP 132 / 78; Pulse 85; Resp 15; Pulse Ox 98% on R/A; lp1 22:20 BP 149 / 80; Pulse 83; Resp 18; Pulse Ox 97% on R/A; ea 22:40 BP 159 / 69; Pulse 85; Resp 20; Pulse Ox 100% ; rr5 21:05 Body Mass Index 23.03 (58.97 kg, 160.02 cm) ED Course: 21:02 Patient arrived in ED. ds1 21:04 Triage completed. bb 21:05 Arm band placed on Patient placed in an exam room, on a stretcher, on pulse oximetry. bb 21:10 Patient has correct armband on for positive identification. Placed in gown. Bed in low rr5 position. Call light in reach. Side rails up X2. hog driver on. Pulse ox on. NIBP on. hog driver on. Pulse ox on. NIBP on. Head of bed elevated. 21:10 Inserted saline lock: 20 gauge in right forearm, using aseptic technique. Blood rr5 collected. 21:15 Patient has correct armband on for positive identification. Placed in gown. Bed in low ea position. Call light in reach. Side rails up X2. 21:20 assist provider in application of surgicel dressing and kerlix at left upper arm. rr5 21:22 Kaden Tran MD is Attending Physician. wa 21:35 XRAY Chest (1 view) In Process Unspecified. EDAL 21:51 Henry Umana RN is Primary Nurse. rr5 22:47 Patient transferred, IV remains in place. intact, No redness/swelling at site. rr5 Administered Medications: No medications were administered Outcome: 22:42 ER care complete, transfer ordered by . wa 22:42 Transferred by ground EMS to [facility], Transfer form completed. rr5 22:42 Condition: stable 22:42 Instructed on the need for transfer. 23:22 Patient left the ED. rr5 Signatures: Dispatcher [employer] EDAL Sharyn Salas ds1 Carmen Leo RN RN bb Starla Gramajo RN RN lp1 Greenwood, Laya, RN RN Kaden Lora MD MD wa Roque, Raymond, RN RN rr5 Corrections: (The following items were deleted from the chart) : 21:20 Dressings: Kerlix 4X4s X 4; left arm surgicel rr5 rr5 23:20 22:47 No provider procedures requiring assistance completed. rr5 rr5
[2018-02-25 23:30] LABS: Anisocytosis 1+; Blood Morphology Comment NOTED (NOT SEEN); Platelet Estimate ADEQ; Urine White Blood Cell Casts OK
[2018-02-25 23:31] LABS: Burr Cells 3+; Ovalocytes 3+
[2018-02-25 23:37] VITALS: BP 159/69; O2SAT 100
== END 2018-02-25 23:22 | disposition short-term general hospital (02) ==
LOC: ER 21:00
DX: T82.838A Hemorrhage due to vascular prosthetic devices, implants and grafts, initial encounter (principal); E11.22 Type 2 diabetes mellitus with diabetic chronic kidney disease; N18.6 End stage renal disease; E78.00 Pure hypercholesterolemia, unspecified; Z88.5 Allergy status to narcotic agent; Z88.6 Allergy status to analgesic agent; Z88.8 Allergy status to other drugs, medicaments and biological substances; Z95.0 Presence of cardiac pacemaker; Z99.2 Dependence on renal dialysis
CPT/HCPCS: 36415; 71045; 80053; 83880; 85025; 85610; 86850; 86900; 86901; 99291; 99292

== ENCOUNTER 2018-03-23 12:58 | Emergency (ER) | payer OTHER ==
--- OUTSIDE RECORDS SUMMARY | 2018-03-23 13:01 | XMS REPORT | Clinical Summary ---
:1935 Author Organization [facility] Address [address] [place] [address] Care Team Providers Name Role Phone Arslan Lema MD Primary Care Provider Allergies Active Allergy Reactions Severity Noted Date Comments Ramipril 10/30/2016 Codeine GI Intolerance 10/30/2016 Propoxyphene N-Acetaminophen 10/30/2016 Hydrocodone 10/30/2016 Feels like "drunk" Morphine Itching 10/30/2016 Clopidogrel GI Intolerance 10/30/2016 Enalapril Maleate 10/30/2016 Hydrocodone-Acetaminophen 10/30/2016 Simvastatin GI Intolerance 10/30/2016 Medications Medication Sig Dispensed Refills Start End Status Date Date insulin regular Inject under the skin every 4 (four) hours as needed. Per sliding scale: 0 Active (HumuLIN-R, If 201-250=2 unit; NovoLIN-R) 100 251-300=4 unit; unit/mL injection 301-350=6 unit; 351-400=8 unit; 401-450=10 unit give dose and call lisinopril Take 20 mg by 0 Active (PRINIVIL,ZESTRIL) mouth daily. 8 20 mg tablet Related to essential hypertension (110). Hold for sbp less than 100 or pulse less than 60 bpm. 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 8 Related to anxiety disorder clonIDINE Give 0.1 mg by 2 Active (CATAPRES) 0.1 MG mouth every 12 8 tablet hours as needed BP > 175/90 phenol Apply 2 sprays to 0 Active (CHLORASEPTIC the mouth or 8 THROAT SPRAY) 1.4 % throat every 4 aerosol,spray (four) hours as needed (for sore throat). sodium chloride 2 sprays into each 0 Active (OCEAN) 0.65 % nostril every 12 8 nasal spray (twelve) hours as needed for congestion. sodium phosphates Insert 1 Bottle 0 Active (CURAD) 19-7 into the rectum 8 gram/118 mL enema daily as needed. Insert 1 application rectally every 24 hours as needed for constipation guaiFENesin Take 5 mL by mouth 0 Active (ROBITUSSIN) 100 every 6 (six) 8 mg/5 mL syrup hours as needed for cough. magnesium hydroxide Take 30 mL by 0 Active 400 mg/5 mL mouth daily as 8 suspension needed (for constipation). acetaminophen Take 650 mg by 0 Active (TYLENOL) 325 MG mouth every 6 8 tablet (six) hours as needed (for mild pain or fever greater than 100.1 F. Do not exceed more than 3 grams in 24 hours from all sources.). acetaminophen Insert 650 mg into 0 Active (TYLENOL) 650 MG the rectum every 6 8 suppository (six) hours as needed for mild pain (or fever greater than 100.1 F. Do not exceed 3 grams in 24 hours from all sources.). diphenhydrAMINE Take 25 mg by 0 Active (BENADRYL) 25 mg mouth every 12 8 tablet (twelve) hours as needed for itching or sleep. LORAZepam (ATIVAN) Take 1 mg by mouth 0 Active 1 MG tablet every 6 (six) 8 018 hours as needed for anxiety (related to anxiety disorder). nystatin Apply 1 0 Active (MYCOSTATIN) application 8 100,000 unit/gram topically. Apply cream to perineum topically two times a day related to candidiasis of vulva and vagina ondansetron Take 4 mg by mouth 0 Active (ZOFRAN) 4 MG every 6 (six) 8 tablet hours as needed for nausea or vomiting. carvedilol (COREG) Take 3.125 mg by 0 Active 3.125 MG tablet mouth 2 (two) 8 times a day with meals. prasugrel (EFFIENT) Take 10 mg by 0 Active 10 mg tablet mouth daily. 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 traMADol (ULTRAM) Take 50 mg by 0 Active 50 mg tablet mouth every 4 (four) hours as needed for moderate pain. gabapentin Take 1 capsule 60 capsule 0 Active (NEURONTIN) 300 mg (300 mg total) by 8 019 capsule mouth 2 (two) times a day for 30 days. atorvastatin Take 1 tablet (40 30 tablet 0 Active (LIPITOR) 40 MG mg total) by mouth 8 019 tablet daily for 30 days. benzonatate Take 1 capsule 30 capsule 0 Active (TESSALON) 100 MG (100 mg total) by 8 019 capsule mouth every 6 (six) hours as needed for cough for up to 30 days. darbepoetin Inject 0.4 mL (40 1.6 mL 0 Active tang-polysorbate mcg total) under 8 019 (ARANESP) 40 the skin once a mcg/0.4 mL week at 4pm for 30 syringeIndications: days. ESRD on Dialysis povidone-iodine Apply topically as 118 mL 0 Active (BETADINE) 10 % needed for wound 8 019 external solution care for up to 30 days. B complex-vitamin Take 1 tablet by 30 tablet 0 Active C-folic acid mouth daily for 30 8 019 (FOLBEE PLUS 5 MG) days. 5 mg tablet per tablet bimatoprost Administer 1 drop 0 Discontinued (LUMIGAN) 0.03 % to both eyes 018 ophthalmic drops nightly. atorvastatin Take 80 mg by 0 Discontinued (LIPITOR) 40 MG mouth nightly. 8 018 tablet Related to hyperlipidemia hydrALAZINE Take 50 mg by 0 Discontinued (APRESOLINE) 50 MG mouth 3 (three) 018 tablet times a day. QUEtiapine Take 50 mg by 0 Discontinued (SEROquel) 50 MG mouth nightly. 018 tablet gabapentin Take 300 mg by 0 Discontinued (NEURONTIN) 300 mg mouth 3 (three) 018 capsule times a day. Related to peripheral vascular disease warfarin (COUMADIN) Take 4 mg by mouth 0 Discontinued 4 MG tablet daily. 018 B complex-minerals Take by mouth. 0 Discontinued tablet 018 carvedilol (COREG) Take 6.25 mg by 0 Discontinued 6.25 MG tablet mouth 2 (two) 018 times a day with meals. 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 Hold for systolic BP less than 100 or pulse less than 60. fluticasone USE 1 SPRAY IEN 5 Discontinued (FLONASE) 50 BID 7 018 mcg/actuation nasal spray GÓMEZ-CASSIA RX 1 tablet daily. 8 Discontinued 1-60-300 mg-mg-mcg 7 018 tablet traMADol (ULTRAM) Take 100 mg by 0 Discontinued 50 mg tablet mouth every 4 8 018 (four) hours as needed (for pain). 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/26/2018 Encounters Date Type Specialty Care Team Description 03/07/2018 Anesthesia Event General Surgery Gael Coffman MD 03/07/2018 Surgery General Surgery [place], LEFT UPPER AV GRAFT Herman Bazan MD THROMBECTOMY AND PATCH REVISION 03/05/2018 Surgery General Surgery [place], Canceled AV GRAFT Herman Bazan MD THROMBECTOMY, LEFT UPPER EXTREMITY 02/28/2018 Surgery Procedural Edwin, Cv periocardiocentesis Cardiology Haider Aviles MD [[id number] (CPT)] 02/26/2018 Hospital Cardiology Flakito, NALLELY (end stage renal disease) ( [facility]) (Primary Dx); - Encounter Herman Bazan MD 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 (HCC); 03/11/2018 Stanton Ronquillo Anemia, unspecified type MD Shanika Purvis Thuyen T., MD 02/25/2018 Intake Access N/A after 03/22/2017 Family History Medical History Relation Name Comments Ulcers Father Intracerebral hemorrhage Mother Relation Name Status Comments Father Mother Social History Tobacco Use Types Packs/Day Years Used Date Former Smoker Cigarettes Quit: 1989 Smokeless Tobacco: Never Used Alcohol Use Drinks/Week oz/Week Comments Yes wine occasionally Sex Assigned at Date Recorded Not on file Job Start Date Occupation Industry Not on file Not on file Not on file Travel History Travel Start Travel End No recent travel history available. Last Filed Vital Signs Vital Sign Reading Time Taken Blood Pressure 150/86 03/11/2018 7:50 PM [facility] Pulse 84 03/11/2018 7:50 PM [employer] Temperature 36.1 C (97 F) 03/11/2018 7:50 PM [facility] [facility] Respiratory Rate 14 03/11/2018 7:50 PM [facility] Oxygen Saturation 96% 03/11/2018 7:50 PM [employer] Inhaled Oxygen Concentration - - Weight 57.7 kg (127 lb 2 oz) 03/08/2018 7:00 AM [facility] Height 160 cm (5' 3") 03/07/2018 12:36 PM [employer] Body Mass Index 22.52 03/08/2018 7:00 AM [facility] Plan of Treatment Health Maintenance Due Date Last Done Comments SHINGLES VACCINES (1 of 2) 1986 PNEUMOCOCCAL POLYSACCHARIDE VACCINE AGE 65 AND OVER 2001 PNEUMOCOCCAL-13 2001 INFLUENZA VACCINE 10/24/2017 Implants Implanted Type Area Director Life Device Shelf Model / Identifier Expiration Serial / Date Lot Graft Vasclr Acuseal 40cm 6mm - [id number] - [id number] Vascular N/A: N/A [employer] 05/19/2019 [id number] / Implanted: Qty: 1 on 11/08/2016 by Herman Fraga MD Graft [id number] / [id number] Patch [employer] For Vasclr 0.5mm 1x9cm Acuseny - [id number] - [id number] Vascular N/ A: N/A [employer]ORE 01/09/2021 [id number] / Implanted: Qty: 1 on 03/07/2018 by Herman Fraga MD Graft [id number] / [id number] Procedures Procedure Name Priority Date/Time Associated Comments Diagnosis POC GLUCOSE Routine 03/11/2018 5:03 Results for this PM [facility] [facility] procedure are in the results section. POC GLUCOSE Routine 03/11/2018 1:26 Results for this PM [employer] [facility] procedure are in the results section. HC COMPLETE BLD COUNT Routine 03/11/2018 1:19 Results for this W/AUTO DIFF PM [employer] procedure are in the results section. ESTIMATED GFR Routine 03/11/2018 1:14 Results for this PM [employer] procedure are in the results section. PHOSPHORUS LEVEL Routine 03/11/2018 1:14 Results for this PM [employer] procedure are in the results section. BASIC METABOLIC PANEL Routine 03/11/2018 1:14 Results for this PM [employer] procedure are in the results section. POC GLUCOSE Routine 03/11/2018 11:37 Results for this AM [facility] procedure are in the results section. HEMODIALYSIS Routine 03/11/2018 10:07 AM [employer] POC GLUCOSE Routine 03/11/2018 7:44 Results for this AM [employer] procedure are in the results section. POC GLUCOSE Routine 03/10/2018 8:59 Results for this PM [employer] procedure are in the results section. POC GLUCOSE Routine 03/10/2018 5:21 Results for this PM [employer] procedure are in the results section. POC GLUCOSE Routine 03/10/2018 12:26 Results for this PM [employer] procedure are in the results section. POC GLUCOSE Routine 03/10/2018 7:56 Results for this AM [employer] procedure are in the results section. POC GLUCOSE Routine 03/09/2018 10:08 Results for this PM [employer] procedure are in the results section. POC GLUCOSE Routine 03/09/2018 6:35 Results for this PM [employer] procedure are in the results section. POC GLUCOSE Routine 03/09/2018 5:00 Results for this PM [facility] [employer] procedure are in the results section. POC GLUCOSE Routine 03/09/2018 11:51 Results for this AM [employer] [employer] procedure are in the results section. HEMODIALYSIS Routine 03/09/2018 10:41 AM [employer] ECHOCARDIOGRAM 2D Routine 03/09/2018 9:01 Results for this COMPLETE W MMODE AM [facility] [facility] procedure are in SPECTRAL COLOR DOPPLER the results (03741) section. POC GLUCOSE Routine 03/09/2018 7:42 Results for this AM [employer] procedure are in the results section. HC COMPLETE BLD COUNT Routine 03/09/2018 5:00 Results for this W/AUTO DIFF AM [facility] procedure are in the results section. ESTIMATED GFR Routine 03/09/2018 4:00 Results for this AM [facility] [employer] procedure are in the results section. PHOSPHORUS LEVEL Routine 03/09/2018 4:00 Results for this AM [facility] procedure are in the results section. BASIC METABOLIC PANEL Routine 03/09/2018 4:00 Results for this AM [employer] [employer] procedure are in the results section. POC GLUCOSE Routine 03/08/2018 10:26 Results for this PM [employer] procedure are in the results section. POC GLUCOSE Routine 03/08/2018 9:24 Results for this PM [employer] procedure are in the results section. TRANSFUSE RED BLOOD Routine 03/08/2018 9:05 CELLS PM [employer] TRANSFUSE RED BLOOD Routine 03/08/2018 7:49 CELLS PM [employer] HEMODIALYSIS Routine 03/08/2018 5:53 PM [employer] POC GLUCOSE Routine 03/08/2018 5:04 Results for this PM [facility] procedure are in the results section. POC GLUCOSE Routine 03/08/2018 3:15 Results for this PM [facility] [employer] procedure are in the results section. IR TUNNELED DIALYSIS Routine 03/08/2018 2:53 Results for this CATHETER PLACEMENT PM [facility] procedure are in the results section. POC GLUCOSE Routine 03/08/2018 11:17 Results for this AM [facility] procedure are in the results section. PREPARE RBC Timed 03/08/2018 10:58 Results for this AM [employer] procedure are in the results section. TYPE AND SCREEN Timed 03/08/2018 10:58 Results for this AM [facility] procedure are in the results section. POC GLUCOSE Routine 03/08/2018 7:17 Results for this AM [employer] procedure are in the results section. SMEAR REVIEW Routine 03/08/2018 4:37 Results for this AM [employer] procedure are in the results section. HC COMPLETE BLD COUNT Routine 03/08/2018 4:37 Results for this W/AUTO DIFF AM [facility] procedure are in the results section. ESTIMATED GFR Routine 03/08/2018 4:00 Results for this AM [facility] procedure are in the results section. PHOSPHORUS LEVEL Routine 03/08/2018 4:00 Results for this AM [employer] procedure are in the results section. BASIC METABOLIC PANEL Routine 03/08/2018 4:00 Results for this AM [employer] procedure are in the results section. POC GLUCOSE Routine 03/07/2018 9:55 Results for this PM [employer] procedure are in the results section. POC GLUCOSE Routine 03/07/2018 6:15 Results for this PM [employer] procedure are in the results section. POC GLUCOSE Routine 03/07/2018 4:32 Results for this PM [employer] procedure are in the results section. POC GLUCOSE Routine 03/07/2018 2:32 Results for this PM [facility] [employer] procedure are in the results section. NV AN ELECTIVE Routine 03/07/2018 1:32 ENDOTRACHEAL AIRWAY PM [facility] Procedure Note - Gael Coffman MD - 03/07/2018 1:32 PM [facility] ANESTHESIA INTUBATION Performed by: Gael Coffman MD Authorized by: Gael Coffman MD Location: [place] Urgency: Elective Difficult Airway: No Preoxygenated with 100% O2: Yes C-spine Precautions Maintained Throughout: Yes Mask Ventilation: Easy mask Final Airway Type: Endotracheal airway Final Endotracheal Airway: ETT Technique Used: Direct laryngoscopy Blade Type: Vaughn Laryngoscope Blade/Videolaryngoscope Blade Size: 2 ETT Size (mm): 7.0 Measured from: Lips ETT to Lips (cm): 21 Placement Verified by: CO2 detection, direct visualization and equal breath sounds Laryngoscopic view: Grade I - full view of glottis Rapid Sequence Induction (RSI): No Modified RSI: No Number of Attempts at Approach: 1 THROMBECTOMY, GRAFT, AV 03/07/2018 1:10 PM [facility] [employer] AV graft malfunction, initial encounter ([facility]) Case Notes C-ARM, R/S PER RIYA 03/06 [facility] Special Needs C-ARM SODIUM LEVEL, SYRINGE STAT 03/07/2018 12:40 PM Results for this [facility] [facility] procedure are in the results section. POTASSIUM, SYRINGE STAT 03/07/2018 12:40 PM Results for this [employer] procedure are in the results section. HEMOGLOBIN, SYRINGE STAT 03/07/2018 12:40 PM Results for this [employer] procedure are in the results section. GLUCOSE LEVEL, SYRINGE STAT 03/07/2018 12:40 PM Results for this [employer] procedure are in the results section. HEMODIALYSIS Routine 03/07/2018 12:22 PM [employer] POC GLUCOSE Routine 03/07/2018 11:13 AM Results for this [employer] procedure are in the results section. POC GLUCOSE Routine 03/07/2018 7:46 AM Results for this [employer] procedure are in the results section. POC GLUCOSE Routine 03/07/2018 5:13 AM Results for this [employer] procedure are in the results section. POC GLUCOSE Routine 03/07/2018 1:35 AM Results for this [employer] procedure are in the results section. POC GLUCOSE Routine 03/06/2018 9:23 PM Results for this [employer] procedure are in the results section. POC GLUCOSE Routine 03/06/2018 4:05 PM Results for this [employer] procedure are in the results section. POC GLUCOSE Routine 03/06/2018 12:51 PM Results for this [employer] procedure are in the results section. HEMODIALYSIS Routine 03/06/2018 12:08 PM [employer] POC GLUCOSE Routine 03/06/2018 7:30 AM Results for this [employer] procedure are in the results section. CLOSTRIDIUM DIFFICILE TOXIN Routine 03/06/2018 6:20 AM Results for this [employer] procedure are in the results section. HC COMPLETE BLD COUNT Routine 03/06/2018 4:20 AM Results for this W/AUTO DIFF [facility] procedure are in the results section. ESTIMATED GFR Routine 03/06/2018 4:00 AM Results for this [employer] procedure are in the results section. PROTHROMBIN TIME WITH INR Routine 03/06/2018 4:00 AM Results for this [employer] procedure are in the results section. PHOSPHORUS LEVEL Routine 03/06/2018 4:00 AM Results for this [employer] procedure are in the results section. BASIC METABOLIC PANEL Routine 03/06/2018 4:00 AM Results for this [employer] procedure are in the results section. POC GLUCOSE Routine 03/05/2018 10:56 PM Results for this [employer] procedure are in the results section. POC GLUCOSE Routine 03/05/2018 5:37 PM Results for this [employer] procedure are in the results section. POC GLUCOSE Routine 03/05/2018 12:11 PM Results for this [employer] procedure are in the results section. TROPONIN Timed 03/05/2018 8:00 AM Results for this [facility] procedure are in the results section. POC GLUCOSE Routine 03/05/2018 7:27 AM Results for this [facility] procedure are in the results section. ESTIMATED GFR Routine 03/05/2018 4:15 AM Results for this [employer] procedure are in the results section. PROTHROMBIN TIME WITH INR Routine 03/05/2018 4:15 AM Results for this [employer] procedure are in the results section. HC COMPLETE BLD COUNT Routine 03/05/2018 4:15 AM Results for this W/AUTO DIFF [facility] procedure are in the results section. PHOSPHORUS LEVEL Routine 03/05/2018 4:15 AM Results for this [facility] procedure are in the results section. MAGNESIUM LEVEL Routine 03/05/2018 4:15 AM Results for this [facility] procedure are in the results section. BASIC METABOLIC PANEL Routine 03/05/2018 4:15 AM Results for this [employer] procedure are in the results section. TROPONIN Timed 03/05/2018 4:15 AM Results for this [facility] procedure are in the results section. POC GLUCOSE Routine 03/04/2018 9:07 PM Results for this [facility] procedure are in the results section. XR CHEST 1 VW PORTABLE STAT 03/04/2018 7:03 PM Results for this [facility] procedure are in the results section. TYPE AND SCREEN Routine 03/04/2018 6:09 PM Results for this [employer] procedure are in the results section. POC GLUCOSE Routine 03/04/2018 5:58 PM Results for this [employer] procedure are in the results section. TROPONIN Timed 03/04/2018 4:00 PM Results for this [employer] procedure are in the results section. TROPONIN Routine 03/04/2018 2:17 PM Results for this [employer] procedure are in the results section. ECG 12-LEAD Routine 03/04/2018 1:48 PM Results for this [employer] procedure are in the results section. POC GLUCOSE Routine 03/04/2018 1:39 PM Results for this [facility] procedure are in the results section. POC GLUCOSE Routine 03/04/2018 11:53 AM Results for this [employer] procedure are in the results section. US DUPLEX HEMODIALYSIS AVG STAT 03/04/2018 9:20 AM Results for this AVF ACCESS [facility] procedure are in the results section. HEMODIALYSIS Routine 03/04/2018 9:05 AM [employer] POC GLUCOSE Routine 03/04/2018 7:47 AM Results for this [employer] procedure are in the results section. PROTHROMBIN TIME WITH INR Routine 03/04/2018 4:20 AM Results for this [employer] procedure are in the results section. HC COMPLETE BLD COUNT Routine 03/04/2018 4:20 AM Results for this W/AUTO DIFF [facility] procedure are in the results section. ESTIMATED GFR Routine 03/04/2018 4:00 AM Results for this [employer] procedure are in the results section. FERRITIN LEVEL Routine 03/04/2018 4:00 AM Results for this [employer] procedure are in the results section. TOTAL IRON BINDING CAPACITY Routine 03/04/2018 4:00 AM Results for this [employer] procedure are in the results section. PHOSPHORUS LEVEL Routine 03/04/2018 4:00 AM Results for this [employer] procedure are in the results section. MAGNESIUM LEVEL Routine 03/04/2018 4:00 AM Results for this [employer] procedure are in the results section. BASIC METABOLIC PANEL Routine 03/04/2018 4:00 AM Results for this [employer] procedure are in the results section. POC GLUCOSE Routine 03/03/2018 9:09 PM Results for this [employer] procedure are in the results section. POC GLUCOSE Routine 03/03/2018 5:17 PM Results for this [facility] procedure are in the results section. POC GLUCOSE Routine 03/03/2018 11:38 AM Results for this [employer] procedure are in the results section. POC GLUCOSE Routine 03/03/2018 7:23 AM Results for this [employer] procedure are in the results section. ESTIMATED GFR Routine 03/03/2018 4:00 AM Results for this [employer] procedure are in the results section. BASIC METABOLIC PANEL Routine 03/03/2018 4:00 AM Results for this [employer] procedure are in the results section. HC COMPLETE BLD COUNT Routine 03/03/2018 3:30 AM Results for this W/AUTO DIFF [facility] procedure are in the results section. HEMODIALYSIS CATHETER Routine 03/02/2018 8:59 PM ESRD (end Results for this PLACEMENT [facility] [facility] stage renal procedure are in disease) ([facility]) the results section. POC GLUCOSE Routine 03/02/2018 6:33 PM Results for this [employer] procedure are in the results section. HEMODIALYSIS Routine 03/02/2018 5:35 PM [employer] POC GLUCOSE Routine 03/02/2018 5:26 PM Results for this [employer] procedure are in the results section. POC GLUCOSE Routine 03/02/2018 11:35 AM Results for this [employer] procedure are in the results section. POC GLUCOSE Routine 03/02/2018 7:28 AM Results for this [employer] procedure are in the results section. ESTIMATED GFR Routine 03/02/2018 4:00 AM Results for this [employer] procedure are in the results section. PHOSPHORUS LEVEL Routine 03/02/2018 4:00 AM Results for this [employer] procedure are in the results section. BASIC METABOLIC PANEL Routine 03/02/2018 4:00 AM Results for this [employer] procedure are in the results section. POC GLUCOSE Routine 03/01/2018 9:22 PM Results for this [employer] procedure are in the results section. POC GLUCOSE Routine 03/01/2018 5:40 PM Results for this [employer] procedure are in the results section. POC GLUCOSE Routine 03/01/2018 12:11 PM Results for this [employer] procedure are in the results section. POC GLUCOSE Routine 03/01/2018 7:54 AM Results for this [employer] procedure are in the results section. POC GLUCOSE Routine 03/01/2018 4:34 AM Results for this [employer] procedure are in the results section. HC COMPLETE BLD COUNT Routine 03/01/2018 4:30 AM Results for this W/AUTO DIFF [facility] procedure are in the results section. ESTIMATED GFR Routine 03/01/2018 4:00 AM Results for this [employer] procedure are in the results section. PHOSPHORUS LEVEL Routine 03/01/2018 4:00 AM Results for this [employer] procedure are in the results section. BASIC METABOLIC PANEL Routine 03/01/2018 4:00 AM Results for this [employer] procedure are in the results section. POC GLUCOSE Routine 02/28/2018 9:14 PM Results for this [employer] procedure are in the results section. POC GLUCOSE Routine 02/28/2018 4:04 PM Results for this [employer] procedure are in the results section. HEMODIALYSIS Routine 02/28/2018 12:09 PM [employer] POC GLUCOSE Routine 02/28/2018 11:34 AM Results for this [employer] procedure are in the results section. ECHOCARDIOGRAM 2D COMPLETE Routine 02/28/2018 9:13 AM Results for this W MMODE SPECTRAL COLOR [employer] procedure are in DOPPLER ([id number]) the results section. POC GLUCOSE Routine 02/28/2018 9:09 AM Results for this [employer] procedure are in the results section. CV INTRACARDIAC Routine 02/28/2018 8:48 AM Results for this ECHOCARDIOGRAM [employer] procedure are in the results section. CV PERICARDIOCENTESIS Routine 02/28/2018 8:48 AM Results for this [employer] procedure are in the results section. PROTEIN, MISC FLUID Routine 02/28/2018 8:35 AM Results for this [employer] procedure are in the results section. LDH, MISC FLUID Routine 02/28/2018 8:35 AM Results for this [employer] procedure are in the results section. GLUCOSE LEVEL, MISC FLUID Routine 02/28/2018 8:35 AM Results for this [employer] procedure are in the results section. CELL COUNT AND Routine 02/28/2018 8:35 AM Results for this DIFFERENTIAL, BODY FLUID BOMB LOADER procedure are in the results section. CYTOLOGY Routine 02/28/2018 6:32 AM Results for this (NON-GYNECOLOGICAL) REQUEST BOMB LOADER procedure are in the results section. ESTIMATED GFR Routine 02/28/2018 3:50 AM Results for this BOMB LOADER procedure are in the results section. PHOSPHORUS LEVEL Routine 02/28/2018 3:50 AM Results for this BOMB LOADER procedure are in the results section. MAGNESIUM LEVEL Routine 02/28/2018 3:50 AM Results for this BOMB LOADER procedure are in the results section. BASIC METABOLIC PANEL Routine 02/28/2018 3:50 AM Results for this [facility]OMB LOADER procedure are in the results section. HC COMPLETE BLD COUNT Routine 02/28/2018 3:50 AM Results for this W/AUTO DIFF BOMB LOADER procedure are in the results section. PARTIAL THROMBOPLASTIN TIME Routine 02/28/2018 3:50 AM Results for this (PTT) [facility]OMB LOADER procedure are in the results section. PROTHROMBIN TIME WITH INR Routine 02/28/2018 3:50 AM Results for this BOMB LOADER procedure are in the results section. POC GLUCOSE Routine 02/27/2018 9:20 PM Results for this BOMB LOADER procedure are in the results section. POC GLUCOSE Routine 02/27/2018 6:06 PM Results for this BOMB LOADER procedure are in the results section. POC GLUCOSE Routine 02/27/2018 12:08 PM Results for this BOMB LOADER procedure are in the results section. POC GLUCOSE Routine 02/27/2018 9:44 AM Results for this BOMB LOADER procedure are in the results section. POC GLUCOSE Routine 02/27/2018 8:14 AM Results for this BOMB LOADER procedure are in the results section. HC COMPLETE BLD COUNT Routine 02/27/2018 4:20 AM Results for this W/AUTO DIFF BOMB LOADER procedure are in the results section. ESTIMATED GFR Routine 02/27/2018 4:00 AM Results for this BOMB LOADER procedure are in the results section. PHOSPHORUS LEVEL Routine 02/27/2018 4:00 AM Results for this BOMB LOADER procedure are in the results section. BASIC METABOLIC PANEL Routine 02/27/2018 4:00 AM Results for this BOMB LOADER procedure are in the results section. POC GLUCOSE Routine 02/26/2018 10:28 PM Results for this BOMB LOADER procedure are in the results section. POC GLUCOSE Routine 02/26/2018 5:50 PM Results for this BOMB LOADER procedure are in the results section. POC GLUCOSE Routine 02/26/2018 2:30 PM Results for this BOMB LOADER procedure are in the results section. HEMODIALYSIS Routine 02/26/2018 2:04 PM BOMB LOADER HEPATITIS B SURFACE ANTIGEN STAT 02/26/2018 2:00 PM Results for this BOMB LOADER procedure are in the results section. US DUPLEX HEMODIALYSIS AVG STAT 02/26/2018 12:15 PM Results for this AVF ACCESS BOMB LOADER procedure are in the results section. PROTHROMBIN TIME WITH INR Routine 02/26/2018 10:20 AM Results for this BOMB LOADER procedure are in the results section. HEMOGLOBIN A1C Routine 02/26/2018 10:20 AM Results for this BOMB LOADER procedure are in the results section. XR CHEST 1 VW PORTABLE STAT 02/26/2018 9:39 AM Results for this BOMB LOADER procedure are in the results section. POC GLUCOSE Routine 02/26/2018 9:10 AM Results for this BOMB LOADER procedure are in the results section. ECG 12-LEAD STAT 02/26/2018 8:53 AM Results for this BOMB LOADER procedure are in the results section. ECHOCARDIOGRAM 2D COMPLETE STAT 02/26/2018 8:17 AM Results for this W MMODE SPECTRAL COLOR BOMB LOADER procedure are in DOPPLER ([id number]) the results section. POC GLUCOSE Routine 02/26/2018 4:57 AM Results for this BOMB LOADER procedure are in the results section. PREPARE RBC Timed 02/26/2018 1:50 AM BOMB LOADER ESTIMATED GFR STAT 02/26/2018 1:50 AM Results for this BOMB LOADER procedure are in the results section. TYPE AND SCREEN Timed 02/26/2018 1:50 AM Results for this BOMB LOADER procedure are in the results section. PROTHROMBIN TIME WITH INR STAT 02/26/2018 1:50 AM Results for this BOMB LOADER procedure are in the results section. COMPREHENSIVE METABOLIC STAT 02/26/2018 1:50 AM Results for this PANEL BOMB LOADER procedure are in the results section. HC COMPLETE BLD COUNT STAT 02/26/2018 1:50 AM Results for this W/AUTO DIFF BOMB LOADER procedure are in the results section. after 03/22/2017 Results POC glucose (03/11/2018 5:03 PM BOMB LOADER)Only the most recent of67 resultswithin the time period is included. POC glucose 236 (H) 65 - 99 mg/dL [facility] Comment: [facility] Notified RN No Action Needed Meter ID: [id number] Storage Engineer: Pk Santillan Performing Organization Address City/State/Zipcode Phone Number [facility] DEPARTMENT OF PATHOLOGY AND [address] [place] [address] GENOMIC MEDICINE [facility] [address] [place] [phone] CBC with platelet and differential (03/11/2018 1:19 PM BOMB LOADER)Only the most recent of11 resultswithin the time period is included. WBC 11.05 (H) 4.50 - 11.00 k/uL [facility] RBC 3.55 (L) 4.20 - 5.50 m/uL [facility] HGB 10.0 (L) 12.0 - 16.0 g/dL [facility] HCT 31.6 (L) 37.0 - 47.0 % [facility] MCV 89.0 82.0 - 100.0 fL [facility] MCH 28.2 27.0 - 34.0 pg [facility] MCHC 31.6 31.0 - 37.0 g/dL [facility] RDW - SD 58.7 (H) 37.0 - 55.0 fL [facility] MPV 11.9 8.8 - 13.2 fL [facility] Platelet count 246 150 - 400 k/uL [facility] Nucleated RBC 0.00 /100 WBC [facility] Neutrophils 78.5 (H) 39.0 - 69.0 % [facility] Lymphocytes 9.2 (L) 25.0 - 45.0 % [facility] Monocytes 6.8 0.0 - 10.0 % [facility] Eosinophils 4.0 0.0 - 5.0 % [facility] Basophils 0.5 0.0 - 1.0 % [facility] Immature granulocytes 1.0Comment: "Immature 0.0 - 1.0 % [facility] granulocytes" HOSPITAL (promyelocytes, myelocytes, metamyelocytes) Specimen Blood Performing Organization Address City/State/Zipcode Phone Number [facility] DEPARTMENT OF PATHOLOGY AND [address] [place] [address] GENOMIC MEDICINE [address] [address] Estimated GFR (03/11/2018 1:14 PM BOMB LOADER)Only the most recent of12 resultswithin the time period is included. Estimated GFR 11 (A) mL/min/1.73 m2 [facility] Comment: HOSPITAL CatergoryUnitsInterpretation G1 >=90 Normal or high G2 60-89Mildly decreased [id number] to moderately decreased N1d25-52Dmeyydgbwz to severely decreased G4 15-29Severely decreased G5 <15Kidney failure The eGFR was calculated using the Chronic Kidney Disease Epidemiology Collaboration (CKD-EPI) equation. Interpretation is based on recommendations of the National Kidney Foundation-Kidney Disease Outcomes Quality Initiative (NKF-KDOQI) published in 2014. Specimen Plasma specimen Performing Organization Address City/[facility] Phone Number [facility] DEPARTMENT OF PATHOLOGY AND [address] [place] [address] Phosphorus level (03/11/2018 1:14 PM BOMB LOADER)Only the most recent of10 resultswithin the time period is included. Phosphorus 2.8 2.4 - 4.5 mg/dL [facility] Specimen Plasma specimen Performing Organization Address [facility] Phone Number [facility] DEPARTMENT OF PATHOLOGY AND [address] [place] [address] Basic metabolic panel (03/11/2018 1:14 PM BOMB LOADER)Only the most recent of11 resultswithin the time period is included. Sodium 135 135 - 148 mEq/L [facility] Potassium 4.0 3.5 - 5.0 mEq/L [facility] Chloride 95 (L) 98 - 112 mEq/L [facility] CO2 27 24 - 31 mEq/L [facility] Anion gap 13@ANIO 7 - 15 mEq/L [facility] BUN 28 (H) 8 - 23 mg/dL [facility] Creatinine 3.75 (H) 0.50 - 0.90 mg/dL [facility] Glucose 186 (H) 65 - 99 mg/dL [facility] Calcium 9.3 8.8 - 10.2 mg/dL [facility] Specimen Plasma specimen Performing Organization Address [facility] Phone Number [facility] DEPARTMENT OF PATHOLOGY AND [address] [place] [address] Echocardiogram complete w contrast and 3D if needed (03/09/2018 9:01 AM BOMB LOADER) Narrative Performed At [facility] Echocardiography Report [address] [place] [address], [address]Name:[facility]O COLLINS [facility]ID:[id number] .Date: 03/09/2018Refer.MD:SCOTT PENA MD Exam Time: 9:04:00 AMStudy Type:Routine Echo Height:63inWeight: 127lb BSA: 1.6 p9SXPVvn:1935,82Y Sex: FEMALEBP:140/62 HR:86 bpmSonogrphr: Mariposa Dent [facility] Pat. 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 LV EF is normal. RV size is normal. RV systolic function is mildly depressed. Trace circumferential pericardial effusion. Moderate pulmonary hypertension. FINDINGS: LV: LV size is normal. LV EF is normal. Overall wall motion is normal.Estimated EF is 65-69% RV: RV size is normal. A pacemaker wire is seen in the RV. RV systolicfunction is mildly depressed. LA: LA volume is severely enlarged. RA: RA size is normal. AO: Aortic root diameter is normal. JANEY: Trace circumferential pericardial effusion. AV: Mild to moderate thickening and calcification of AV leaflets.Mild aortic regurgitation. Mild to moderate aorticvalve stenosis. MV: Severe mitral annular calcification. Mild to moderate mitral regurgitation.Mild mitral stenosis. PV: No structural PV abnormalities noted. Mild pulmonic regurgitation. TV: No structural TV abnormalities noted. Mild tricuspid regurgitation Aleman: Unable to assess diastolic function. Other:Estimated PA systolic pressure is 55 mmHg, assuming a mean RAPof 15 mmHg. MEASUREMENTS: 2D Parasternal [place] LA Ds4.5 cmAo An2.4 cm LVIDd4.1 cmIndex2.6 cm/m Ao Rtd 3 cm Index1.9 cm/m LVIDs2.4 cmLV Ebxd285.4 g(87-129) LV%fs 41.5 % LVM Jjbkh501.4 g/m2 IVSd 1.3 cmRWT0.7 LVPWd1.4 cmLVOT 1.8 cm LA Sng Plane LA Area 27.5 cm2(8.8-23.4) LA Vol90.4 ml Index56.5 ml/m LA LngAx 6.9 cm DOPPLER AV For Flow/ZHENG AV pkVel 219.1 cm/s (100-170) AV AC/ET 0.3 AV mnVel 154.4 cm/Marilyn TVI44.5 cm AV pkPG 19.2 mmHgAVpkAcRt 6985.6 cm/s2 AV Mean G 11.2 mmHgAV HrMs462.3 cm/s2 AV AC 88 msec (83-118) AV Area1.1 cm2(3-5) AV ET288 msec LVOT For Flow LVOT Area2.5 cm2 LVOT SV 47.4 ml LVOTpkVel 92.2 cm/sHR87.8 bpm LVOTpkPG 3.4 mmHgLVOT CO4.2 l/min LVOTmnPG 1.7 mmHgLVOT CI2.6 l/m/m2 LVOT TVI18.6 cm MV For Flow/Valve Assess MV pkVel 151.1 cm/sMV Dec T 231 msec MV pkPG9.1 mmHgMV TVI32.1 cm MV Mean G3.7 mmHgMV Area P1/2t3.2 cm2(4-6) Signed 03/09/2018 04:57 PM Edwin Sage M.D. Procedure Note Interface, Radiology Results In - 03/09/2018 4:57 PM [facility] Echocardiography Report [address] [address] Pat.Name: YEYO COLLINS Pat.ID: [id number] .Date: 03/09/2018 Refer.MD: SCOTT PENA MD Exam Time: 9:04:00 AM Study Type:Routine Echo Height: 63in Weight: 127lb BSA: 1.6 m2 Age: 4 1935,82Y Sex: FEMALE BP: 140/62 HR: 86 bpm Sonogrphr: PARTHA Wallace Pat. 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 LV EF is normal. RV size is normal. RV systolic function is mildly depressed. Trace circumferential pericardial effusion. Moderate pulmonary hypertension. FINDINGS: LV: LV size is normal. LV EF is normal. Overall wall motion is normal. Estimated EF is 65-69% RV: RV size is normal. A pacemaker wire is seen in the RV. RV systolic function is mildly depressed. LA: LA volume is severely enlarged. RA: RA size is normal. AO: Aortic root diameter is normal. JANEY: Trace circumferential pericardial effusion. AV: Mild to moderate thickening and calcification of AV leaflets. Mild aortic regurgitation. Mild to moderate aortic valve stenosis. MV: Severe mitral annular calcification. Mild to moderate mitral regurgitation. Mild mitral stenosis. PV: No structural PV abnormalities noted. Mild pulmonic regurgitation. TV: No structural TV abnormalities noted. Mild tricuspid regurgitation Aleman: Unable to assess diastolic function. Other: Estimated PA systolic pressure is 55 mmHg, assuming a mean RAP of 15 mmHg. MEASUREMENTS: 2D Parasternal Long [place] LA Ds 4.5 cm Ao An 2.4 cm LVIDd 4.1 cm Index 2.6 cm/m Ao Rtd 3 cm Index 1.9 cm/m LVIDs 2.4 cm LV Mass 205.4 g (87-129) LV%fs 41.5 % LVM Index 128.4 g/m2 IVSd 1.3 cm RWT 0.7 LVPWd 1.4 cm LVOT 1.8 cm LA Sng Plane LA Area 27.5 cm2 (8.8-23.4) LA Vol 90.4 ml Index 56.5 ml/m LA LngAx 6.9 cm DOPPLER AV For Flow/ZHENG AV pkVel 219.1 cm/s (100-170) AV AC/ET 0.3 AV mnVel 154.4 cm/s AV TVI 44.5 cm AV pkPG 19.2 mmHg AVpkAcRt 6985.6 cm/s2 AV Mean G 11.2 mmHg AV DeRt 760.3 cm/s2 AV AC 88 msec (83-118) AV Area 1.1 cm2 (3-5) AV ET 288 msec LVOT For Flow LVOT Area 2.5 cm2 LVOT SV 47.4 ml LVOTpkVel 92.2 cm/s HR 87.8 bpm LVOTpkPG 3.4 mmHg LVOT CO 4.2 l/min LVOTmnPG 1.7 mmHg LVOT CI 2.6 l/m/m2 LVOT TVI 18.6 cm MV For Flow/Valve Assess MV pkVel 151.1 cm/s MV Dec T 231 msec MV pkPG 9.1 mmHg MV TVI 32.1 cm MV Mean G 3.7 mmHg MV Area P1/2t 3.2 cm2 (4-6) Signed 03/09/2018 04:57 PM Edwin Sage M.D. Performing Organization Address City/State/Zipcode Phone Number [facility] [address] [place] [address] Transfuse RBC (03/08/2018 9:05 PM BOMB LOADER)Only the most recent of3 resultswithin the time period is included.IR Tunneled Dialysis Catheter Placement (03/08/2018 2:53 PM BOMB LOADER) Narrative Performed At Procedure: Placement of tunneled dialysis catheter [facility] Clinical History: End-stage renal disease Sedation: Versed and fentanyl were utilized for monitored conscious sedation during the procedure. The patient was transferred to the recovery room at the end of the procedure for further monitoring. Bvjr-qv-gvgf time 20 minutes Anesthesia: Local Radiation dose: Ka,r=18 mGy Technique: After discussing the risks and benefits of the procedure and moderate conscious sedation with the patient she agreed to the procedure. All elements of maximal sterile barrier technique were followed. A recorded image of the patent left internal jugular vein was obtained. After prepping and draping the left side of the neck and chest, local anesthesia was administered and the internal jugular vein accessed with a 21-gauge needle under real-time ultrasound guidance. A 0.018 Nitrex guidewire was manipulated through the innominate vein stent and into the right atrium under fluoroscopy. A 4 [place] catheter was placed. Local anesthesia was then administered from the infraclavicular region to the initial puncture site. The 28 cm Palindrome dialysis catheter was brought through the tunnel. An Amplatz guidewire was advanced through the 4 [place] catheter and after dilatation, the dialysis catheter was placed with its tip in the right atrium. The lumens aspirated and injected easily. They were flushed with heparin. The initial puncture site was sealed with Dermabond and the catheter exit site closed with 2-0 silk suture. Complications: None Impression: Successful placement of a left internal jugular vein tunneled dialysis catheter as described above. Blood Loss: Less than 5 mL [facility]-[id number] Procedure Note Interface, Radiology Results Incoming - 03/08/2018 3:04 PM BOMB LOADER Procedure: Placement of tunneled dialysis catheter Clinical History: End-stage renal disease Sedation: Versed and fentanyl were utilized for monitored conscious sedation during the procedure. The patient was transferred to the recovery room at the end of the procedure for further monitoring. Qkfj-bx-lfth time 20 minutes Anesthesia: Local Radiation dose: Ka,r=18 mGy Technique: After discussing the risks and benefits of the procedure and moderate conscious sedation with the patient she agreed to the procedure. All elements of maximal sterile barrier technique were followed. A recorded image of the patent left internal jugular vein was obtained. After prepping and draping the left side of the neck and chest, local anesthesia was administered and the internal jugular vein accessed with a 21- gauge needle under real-time ultrasound guidance. A 0.018 Nitrex guidewire was manipulated through the innominate vein stent and into the right atrium under fluoroscopy. A 4 [place] catheter was placed. Local anesthesia was then administered from the infraclavicular region to the initial puncture site. The 28 cm Palindrome dialysis catheter was brought through the tunnel. An Amplatz guidewire was advanced through the 4 [place] catheter and after dilatation, the dialysis catheter was placed with its tip in the right atrium. The lumens aspirated and injected easily. They were flushed with heparin. The initial puncture site was sealed with Dermabond and the catheter exit site closed with 2-0 silk suture. Complications: None Impression: Successful placement of a left internal jugular vein tunneled dialysis catheter as described above. Blood Loss: Less than 5 mL [facility]-[id number] Performing Organization Address [facility] Phone Number [facility] [address] [place] [address] Prepare RBC, 2 Units (03/08/2018 10:58 AM BOMB LOADER) Product name Red Blood Cells [address] Unit number [id number] [facility] Product code [id number] [facility] Dispense status Transfused [facility] Blood expiration date [facility] Blood type code 6200 [facility] Blood type A POSITIVE [facility] Product name Red Blood Cells , [facility] Unit number [id number] [facility] Product code [id number] [facility] Dispense status Transfused [facility] Blood expiration date [facility] Blood type code 6200 [facility] Blood type A POSITIVE [facility] Performing Organization Address City/[facility]/Zipcode Phone Number [facility] DEPARTMENT OF PATHOLOGY AND [address] [place] [phone] [address] Type and screen (03/08/2018 10:58 AM BOMB LOADER)Only the most recent of3 resultswithin the time period is included. ABO grouping A [facility] Rh type POS [facility] Antibody screen (gel) NEG [facility] Specimen Blood Performing Organization Address City/[facility] Phone Number [facility] DEPARTMENT OF PATHOLOGY AND [address] [place] [phone] [address] Smear review (03/08/2018 4:37 AM BOMB LOADER) Platelet slide review Alex adequate [facility] Anisocytosis Moderate [facility] Polychromasia Moderate [facility] Schistocytes Occasional [facility] Ovalocytes Moderate [facility] Fargo cells Moderate (A) [facility] Acanthocytes Occasional [facility] Performing Organization Address [facility] Phone Number [facility] DEPARTMENT OF PATHOLOGY AND [address] [place] [phone] [address] Sodium level, syringe (03/07/2018 12:40 PM BOMB LOADER) Sodium, syringe 130 (L) 135 - 148 mEq/L [facility] Specimen Blood Performing Organization Address [facility] Phone Number [facility] DEPARTMENT OF PATHOLOGY AND [address] [place] [address] [address] Potassium, syringe (03/07/2018 12:40 PM BOMB LOADER) Potassium, syringe 4.6 3.5 - 5.0 mEq/L [facility] Specimen Blood Performing Organization Address City/[facility] Phone Number [facility] DEPARTMENT OF PATHOLOGY AND [address] [place] [phone] Hemoglobin, syringe (03/07/2018 12:40 PM BOMB LOADER) Hemoglobin, syringe 7.5 (L) 12.0 - 16.0 g/dL [facility] Specimen Blood Performing Organization Address [facility]/Zipcode Phone Number [facility] DEPARTMENT OF PATHOLOGY AND [address] [place] [phone] [place] [phone] Glucose level, syringe (03/07/2018 12:40 PM BOMB LOADER) Glucose, syringe 132 (H) 65 - 99 mg/dL [facility] Specimen Blood Performing Organization Address [facility] Phone Number [facility] DEPARTMENT OF PATHOLOGY AND [address] [place] [phone] C difficile toxin (03/06/2018 6:20 AM BOMB LOADER) Clostridium difficile No Clostridium difficle toxin present [facility] Comment: HOSPITAL Specimen Information Specimen Source: Stool Specimen Site: Nonpreserved Specimen Stool - Nonpreserved Performing Organization Address [facility] Phone Number [facility] DEPARTMENT OF PATHOLOGY AND [address] [place] [phone] Prothrombin time with INR (03/06/2018 4:00 AM BOMB LOADER)Only the most recent of6 resultswithin the time period is included. Prothrombin time 14.2 11.5 - 14.5 sec [facility] INR 1.1 [facility] Comment: [facility] The International Normalized Ratio (INR) is a therapeutic monitoring tool for patients who are stable on oral anticoagulant therapy. An INR of 2.0-3.0 is suggested for deep vein thrombosis/pulmonary embolism. Specimen Blood Performing Organization Address [facility] Phone Number [facility] DEPARTMENT OF PATHOLOGY AND [address] [place] [phone] Troponin (03/05/2018 8:00 AM BOMB LOADER)Only the most recent of4 resultswithin the time period is included. Troponin <0.30 0.00 - 0.30 ng/mL [facility] Comment: 0.30 - 1.49 ng/mlMay indicate increased risk of acute coronary syndrome. >=1.5 ng/mlConsistent with acute myocardial infarction. The diagnostic value of a single normal or non-diagnostic result is questionable.Serial samples at 2-6 hour intervals are required to rule out acute myocardial injury. Specimen Plasma specimen Performing Organization Address City/[facility] Cent[facility] Phone Number [facility] DEPARTMENT OF PATHOLOGY AND [address] [place] [address] [address] Magnesium level (03/05/2018 4:15 AM BOMB LOADER)Only the most recent of3 resultswithin the time period is included. Magnesium 1.7 1.6 - 2.4 mg/dL [facility] Specimen Plasma specimen Performing Organization Address [facility] Centercode Phone Number [facility] DEPARTMENT OF PATHOLOGY AND [address] [place] [address] [facility] [address] [place] [address] XR Chest 1 Vw Portable (03/04/2018 7:03 PM BOMB LOADER)Only the most recent of2 resultswithin the time period is included. Narrative Performed At EXAMINATION:XR CHEST 1 VW PORTABLE [facility] CLINICAL HISTORY:chest pain COMPARISON:02/26/2018 IMPRESSION: An AP radiograph of the chest is reviewed. The heart size is enlarged. A right subclavian pacemaking device is again noted. Stents are again noted over the left upper chest and left upper arm. There is mild pulmonary vascular congestion. Left basilar opacity from either volume loss and/or consolidation is unchanged. There is no consolidation. A tiny left pleural effusion versus pleural thickening is unchanged. No pneumothorax. [id number] Procedure Note Interface, Radiology Results Incoming - 03/04/2018 7:16 PM BOMB LOADER EXAMINATION: XR CHEST 1 VW PORTABLE CLINICAL HISTORY: chest pain COMPARISON: 02/26/2018 IMPRESSION: An AP radiograph of the chest is reviewed. The heart size is enlarged. A right subclavian pacemaking device is again noted. Stents are again noted over the left upper chest and left upper arm. There is mild pulmonary vascular congestion. Left basilar opacity from either volume loss and/or consolidation is unchanged. There is no consolidation. A tiny left pleural effusion versus pleural thickening is unchanged. No pneumothorax. [id number] Performing Organization Address [facility]/Zipcode Phone Number [facility] [address] [place] [address] ECG 12 lead (03/04/2018 1:48 PM BOMB LOADER)Only the most recent of2 resultswithin the time period is included. Ventricular rate 75 [facility] Atrial rate 75 [facility] NV interval 204 [facility] QRSD interval 76 [facility] QT interval 398 [facility] QTC interval 444 [facility] P axis 1 51 [facility] QRS axis 1 2 [facility] T wave axis 124 [facility] EKG impression Normal sinus rhythm-Inferior infarct (cited on or before )-ST & T wave abnormality, consider lateral ischemia-Abnormal ECG-In automated comparison with ECG of 26-FEB-2018 08:53,-T wave inversion less evident in Anterolateral leads-QT has [facility] MUSE lengthened- 5: 22:27 PM Narrative Performed At Performing Organization Address City/State/Zipcode Phone Number [facility] [address] duplex hemodialysis avg avf access (03/04/2018 9:20 AM BOMB LOADER)Only the most recent of2 resultswithin the time period is included. Narrative Performed At [facility] Vascular Ultrasound Laboratory AV Graft - Fistula Report [address]Name:[facility]YO COLLINS [facility].ID:[id number] .Date: 03/04/2018Refer.MD:SCOTT PENA MD Exam Time: 8:11:00 AMStudy Type:AV Graft - Fistula Height:63inWeight: 123lb BSA: 1.57 m2 DOBAge:1935,82Y Sex: FEMALESonogrphr: Aubree Villela RVT Pat. Stat.:Inpatient Room:[address] TapeVol: , CPT - 4: 26329 Echo Event ID:[id number] Order ID:[id number] Reason for Study:AV-graft without thrill and buit.History of CAD, HTN HLD DM ESRD.Satus post hemodialysis catheter placement on 03/02/2018. Procedures:Colorflow, Grayscale/2D, Pulsed wave Doppler Race:C SUMMARY: DUPLEX SCAN OBSERVATIONS: LEFT: There is brachial artery to axillary vein AV graft visualized in the upper arm with absent colorflow andDoppler signals.Axillary artery and brachial artery demonstrate high resistant biphasic Doppler waveform. Axillary vein and subclavian vein demonstrate phasic Doppler signals.Distal radial artery and distal ulnar artery are patent with biphasic Doppler signals. DOPPLER FINDINGS: ARTERY/Vein LOCATIONPSV (cm/sec) LEFTAxillaryProximal-third 65cm/sec BrachialProximal-third 82 cm/sec Mid-third47 cm/sec Distal-third40 cm/sec Blwrggommfr12pq/sec,0cm/sec AV-GraftJaxta0 cm/sec Arterial glvp3ls/sec Venous fqwm3ri/sec Ktrpfwcogtl16va/sec Axillary VeinDistal-edgly11za/sec Subclavian Vein Mid-hyghd44er/sec VOLUME FLOW: Oxmdifzb92 cc/min 83 cc/min PRELIMINARY FINDINGS: 1. Occluded brachial -axillary AV-graft in the left upper arm. 2. Volume flow is 45-83cc/min. 3. Patent of the left distal radial artery and leftdistal ulnar artery. PHYSICIAN INTERPRETATION: Reduced flow volume. Occluded left brachial artery to axillary vein AV graft. Patent stent in the left axillary vein. Distal left radial and ulnar arteries are patent. Compared to prior study 02/26/2018, the AV graft is now occluded. Signed 03/04/2018 02:26 PM Jacques Mattson MD, RPVI Procedure Note Interface, Radiology Results In - 03/04/2018 2:26 PM [facility] Vascular Ultrasound Laboratory AV Graft - Fistula Report [address] [place] [address] Pat.Name: YEYO COLLINS Pat.ID: [id number] .Date: 03/04/2018 Refer.MD: SCOTT PENA MD Exam Time: 8:11:00 AM Study Type:AV Graft - Fistula Height: 63in Weight: 123lb BSA: 1.57 m2 Age: 4 1935,82Y Sex: FEMALE Sonogrphr: Aubree Villela RVT Pat. Stat.:Inpatient Room: [address] Tape Vol: YM, CPT - 4: 75234 Echo Event ID:[id number] Order ID: [id number] Reason for Study:AV-graft without thrill and buit. History of CAD, HTN HLD DM ESRD. Satus post hemodialysis catheter placement on 03/02/2018. Procedures:Colorflow, Grayscale/2D, Pulsed wave Doppler Race: C SUMMARY: DUPLEX SCAN OBSERVATIONS: LEFT: There is brachial artery to axillary vein AV graft visualized in the upper arm with absent colorflow and Doppler signals. Axillary artery and brachial artery demonstrate high resistant biphasic Doppler waveform. Axillary vein and subclavian vein demonstrate phasic Doppler signals. Distal radial artery and distal ulnar artery are patent with biphasic Doppler signals. DOPPLER FINDINGS: ARTERY/Vein LOCATION PSV (cm/sec) LEFT Axillary Proximal-third 65cm/sec Brachial Proximal-third 82 cm/sec Mid-third 47 cm/sec Distal-third 40 cm/sec Anastamosis 28cm/sec, 0cm/sec AV-Graft Jaxta 0 cm/sec Arterial side 0cm/sec Venous side 0cm/sec Anastomosis 13cm/sec Axillary Vein Distal-third 18cm/sec Subclavian Vein Mid-third 42cm/sec VOLUME FLOW: Brachial 45 cc/min 83 cc/min PRELIMINARY FINDINGS: 1. Occluded brachial -axillary AV-graft in the left upper arm. 2. Volume flow is 45-83cc/min. 3. Patent of the left distal radial artery and left distal ulnar artery. PHYSICIAN INTERPRETATION: Reduced flow volume. Occluded left brachial artery to axillary vein AV graft. Patent stent in the left axillary vein. Distal left radial and ulnar arteries are patent. Compared to prior study 02/26/2018, the AV graft is now occluded. Signed 03/04/2018 02:26 PM Jacques Mattson MD, RPVI Performing Organization Address City/State/Zipcode Phone Number [facility] [address] [place] [address] Total iron binding capacity (03/04/2018 4:00 AM BOMB LOADER) Iron level 36 (L) 37 - 145 ug/dL [facility] Iron binding capacity 118 (L) 200 - 400 ug/dL [facility] % Saturation 30.5 15.0 - 38.0 % [facility] Specimen Plasma specimen Performing Organization Address City/[facility] Centercopr Phone Number [facility] DEPARTMENT OF PATHOLOGY AND [address] [place] [address] [address] Ferritin level (03/04/2018 4:00 AM BOMB LOADER) Ferritin level 978 (H) 13 - 150 ng/mL [facility] Specimen Plasma specimen Performing Organization Address [facility] Centercopr Phone Number [facility] DEPARTMENT OF PATHOLOGY AND [address] [place] [phone] [place] [phone] HEMODIALYSIS CATHETER PLACEMENT (03/02/2018 8:59 PM BOMB LOADER) Narrative Performed At Chava Hill MD 03/03/2018 12:44 PM Hemodialysis catheter placement Date/Time: 03/02/2018 8:59 PM Performed by: Rodriguez Edwards MD Authorized by: Chava Hill MD Consent: Consent obtained:Verbal and written Consent given by:Patient Risks discussed:Arterial puncture, incorrect placement, nerve damage, infection and bleeding Alternatives discussed:Delayed treatment Parnell protocol: Procedure explained and questions answered to patient or proxy's satisfaction: yes Relevant documents present and verified: yes Test results available and properly labeled: yes Required blood products, implants, devices, and special equipment available: no Site/side marked: yes Immediately prior to procedure, a time out was called: yes Patient identity confirmed:Verbally with patient, arm band and hospital-assigned identification number Pre-procedure details: Indication:Vascular access for HD Hand hygiene: Hand hygiene performed prior to insertion Sterile barrier technique: All elements of maximal sterile technique followed Skin preparation:ChloraPrep Skin preparation agent: Skin preparation agent completely dried prior to procedure Anesthesia (see MAR for exact dosages): Anesthesia method:Local infiltration Local anesthetic:Lidocaine 1% w/o epi Procedure details: Procedure supplies:Trialysis Catheter size:13F, 24 cm Catheter Site Laterality:Left Post-procedure details: Post-procedure:Dressing applied and line sutured Patient tolerance of procedure:Tolerated well, no immediate complications Comments: First attempt on the RIGHT femoral vein, inability to pass safely the wire. LEFT femoral vein access successful Echocardiogram complete w contrast and 3D if needed (02/28/2018 9:13 AM BOMB LOADER) Narrative Performed At [facility] Echocardiography Report [address] [facility], [address]Name:YEYO COLLINS.ID:[id number] .Date: 02/28/2018 Refer.MD:SCOTT PENA MD Exam Time: 8:01:00 AMStudy Type:Routine Echo Height:63inWeight: 151lb BSA: 1.72 m2 DOBAge:1935,82Y Sex: FEMALEBP:126/62 HR:86 bpmSonogrphr: PARTHA [facility]. Stat.:Inpatient Room:[place] [address] Study Status:Final Echo Event ID:[id number] Order ID:[id number] Reason for Study:Periocardiocentesis History / Clinical:Congestive Heart Failure, Coronary Artery Disease, Diabetes, Hyperlipidemia, Hypertension, ESRD/on HD, Anemia, Left BKA, Bleeding PSA of AV graft Procedures:2D Echo, Colorflow Doppler, Portable Race:C SUMMARY: This study was performed during pericardiocentesis. Pre-procedure: moderate circumferential pericardial effusion with increased intra-pericardial pressure. Post-procedure: 420 ml was removed. No evidence of pericardial effusion. FINDINGS: LV: LV size is normal. LV EF is normal. Overall wall motion is normal.Estimated EF is 60-64%. RV: RV size is normal. A pacemaker wire is seen in the RV. RV systolicfunction is normal. LA: LA size is normal. RA: RA volume is normal. A pacemaker wire is seen. AO: Aortic root diameter is normal. JANEY: No pericardial effusion. IAS:Interatrial septum morphology: lipomatous hypertrophy. AV: No structural AV abnormalities noted. MV: Moderate mitral annular calcification. PV: No structural PV abnormalities noted. TV: No structural TV abnormalities noted. Aleman: LV respiratory variation is consistent with high pericardial pressure.RV respiratory variation is consistent with high pericardialpressure. MEASUREMENTS: 2D LA Sng Plane LA Area 26.3 cm2(8.8-23.4) LA Vol89.5 ml Index52 ml/m LA LngAx 6.4 cm Signed 02/28/2018 04:12 PM Edwin Sage M.D. Procedure Note Interface, Radiology Results In - 02/28/2018 4:12 PM [facility] Echocardiography Report [address] [place] [address] Pat.Name: YEYO COLLINS Pat.ID: [id number] .Date: 02/28/2018 Refer.MD: SCOTT PENA MD Exam Time: 8:01:00 AM Study Type:Routine Echo Height: 63in Weight: 151lb BSA: 1.72 m2 Age: 4 1935,82Y Sex: FEMALE BP: 126/62 HR: 86 bpm Sonogrphr: PARTHA [facility] Pat. Stat.:Inpatient Room: [place] [address] Study Status:Final Echo Event ID:[id number] Order ID: [id number] Reason for Study:Periocardiocentesis History / Clinical:Congestive Heart Failure, Coronary Artery Disease, Diabetes, Hyperlipidemia, Hypertension, ESRD/on HD, Anemia, Left BKA, Bleeding PSA of AV graft Procedures:2D Echo, Colorflow Doppler, Portable Race: C SUMMARY: This study was performed during pericardiocentesis. Pre-procedure: moderate circumferential pericardial effusion with increased intra-pericardial pressure. Post-procedure: 420 ml was removed. No evidence of pericardial effusion. FINDINGS: LV: LV size is normal. LV EF is normal. Overall wall motion is normal. Estimated EF is 60-64%. RV: RV size is normal. A pacemaker wire is seen in the RV. RV systolic function is normal. LA: LA size is normal. RA: RA volume is normal. A pacemaker wire is seen. AO: Aortic root diameter is normal. JANEY: No pericardial effusion. IAS: Interatrial septum morphology: lipomatous hypertrophy. AV: No structural AV abnormalities noted. MV: Moderate mitral annular calcification. PV: No structural PV abnormalities noted. TV: No structural TV abnormalities noted. Aleman: LV respiratory variation is consistent with high pericardial pressure. RV respiratory variation is consistent with high pericardial pressure. MEASUREMENTS: 2D LA Sng Plane LA Area 26.3 cm2 (8.8-23.4) LA Vol 89.5 ml Index 52 ml/m LA LngAx 6.4 cm Signed 02/28/2018 04:12 PM Edwin Sage M.D. 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 [facility] Micropuncture catheter used to obtain access to pericardial space and exchange for pericardial drain. Performing Organization Address City/State/Zipcode Phone Number [facility] [address] [place] [address] Cell count and differential, body fluid (02/28/2018 8:35 AM BOMB LOADER) Misc fluid type Pericardial [facility] Color, fluid Red [facility] Appearance, fluid Hazy [facility] RBC, fluid 170,000 /CMM [facility] Nucleated cells, fluid 137 /CMM [facility] Fluid mononuclear cell See Diff [facility] Neutrophils, fluid 40 % [facility] Lymphocytes, fluid 23 % [facility] Eosinophils, fluid 5 % [facility] Macrophages, fluid 32 % [facility] Specimen Fluid Narrative Performed At Pericardial fluid [facility] DEPARTMENT OF PATHOLOGY AND GENOMIC MEDICINE Performing Organization Address City/[facility]/Zipcode Phone Number [facility] DEPARTMENT OF PATHOLOGY AND [address] [place] [address] [address] [address] Protein, misc fluid (02/28/2018 8:35 AM BOMB LOADER) Fluid type Pericardial [facility] Protein, fluid 4.3 g/dL [facility] Comment: Analysis performed on Mickey 8000 analyzer. This is not an approved methodology for this specimen type;accuracy and clinical significance uncertain. Specimen Fluid Narrative Performed At Pericardial fluid [facility] DEPARTMENT OF PATHOLOGY AND GENOMIC MEDICINE Performing Organization Address City/[facility] Centercode Phone Number [facility] DEPARTMENT OF PATHOLOGY AND [address] [place] [address] [address] LDH, misc fluid (02/28/2018 8:35 AM BOMB LOADER) Fluid type Pericardial [facility] LDH, fluid 348 U/L [facility] Comment: Analysis performed on Mickey 8000 analyzer. This is not an approved methodology for this specimen type;accuracy and clinical significance uncertain. Specimen Fluid Narrative Performed At Pericardial fluid [facility] DEPARTMENT OF PATHOLOGY AND GENOMIC MEDICINE Performing Organization Address City/State/Zipcode Phone Number [facility] DEPARTMENT OF PATHOLOGY AND [address] [place] [address] GENOMIC MEDICINE [address] [address] Glucose level, misc fluid (02/28/2018 8:35 AM BOMB LOADER) Fluid type Pericardial [facility] Glucose, fluid 126 mg/dL [facility] Comment: Analysis performed on Mickey 8000 analyzer. This is not an approved methodology for this specimen type;accuracy and clinical significance uncertain. Specimen Fluid Narrative Performed At Pericardial fluid [facility] DEPARTMENT OF PATHOLOGY AND GENOMIC MEDICINE Performing Organization Address City/State/Zipcode Phone Number [facility] DEPARTMENT OF PATHOLOGY AND [address] [place] [address] Cytology (non-gynecological) request (02/28/2018 6:32 AM BOMB LOADER) [facility] DEPARTMENT OF PATHOLOGY AND GENOMIC MEDICINE Cytology See link below for PDF [facility] DEPARTMENT OF (non-gynecological) report Lab Report PATHOLOGY AND GENOMIC MEDICINE Result status This is Final Report [facility] DEPARTMENT OF for [id number] PATHOLOGY AND GENOMIC MEDICINE Performing Organization Address City/[facility] Centercode Phone Number [facility] DEPARTMENT OF PATHOLOGY AND [address] [place] [address] Partial thromboplastin time, activated (02/28/2018 3:50 AM BOMB LOADER) PTT 35.1 23.0 - 36.0 sec [facility] Comment: PTT therapeutic range for unfractionated heparin is 61.0-112.0 seconds which corresponds to Anti-Xa 0.3-0.7 U/ml. Specimen Blood Performing Organization Address City/[facility] Centercode Phone Number [facility] DEPARTMENT OF PATHOLOGY AND [address] [place] [address] Hepatitis B surface antigen (02/26/2018 2:00 PM BOMB LOADER) Hepatitis B surface Ag Non-reactive Non-reactive [facility] Specimen Blood Performing Organization Address City/[facility]/Zipcode Phone Number [facility] DEPARTMENT OF PATHOLOGY AND [address] [place] [address] Hemoglobin A1c (02/26/2018 10:20 AM BOMB LOADER) Hemoglobin A1C 5.5 4.0 - 5.6 % [facility] Comment: HbA1c cutoffs for diagnosing diabetes: 4.0% - 5.6%=normal 5.7% - 6.4%=increased risk for diabetes (prediabetes) >=6.5%=diabetes Goals for glycemic control (ADA 2016) < 7.0%Target for non adults with diabetes. More or less stringent targets may be appropriate for individual patients. <7.5% Target for Children and adolescents with type 1 diabetes. Specimen Blood Performing Organization Address City/State/Zipcode Phone Number [facility] DEPARTMENT OF PATHOLOGY AND [address] [place] [address] GENOMIC MEDICINE [facility] [address] [place] [address] Echocardiogram complete w contrast and 3D if needed (02/26/2018 8:17 AM BOMB LOADER) Narrative Performed At [facility] Echocardiography Report [address] [facility] [address], [place] [address] Pat.Name:YEYO COLLINS.ID:[id number] .Date: 02/26/2018 Refer.MD:HERMAN FRAGA MD Exam Time: 7:27:00 AMStudy Type:Routine Echo Height:63inWeight: 151lb BSA: 1.72 m2 DOBAge:1935,82Y Sex: FEMALEBP:141/71 HR:87 bpm Sonogrphr: Laya Coffman RDCS, ISABELT Pat. Stat.:Inpatient Room:[address] Study Status:Final Echo Event ID:[id number] Order ID:[id number] Reason for Study:Pre-op clearance History / Clinical:Congestive Heart Failure, Coronary Artery Disease, Diabetes, Hyperlipidemia, Hypertension, ESRD/on HD, Anemia, Left BKA, Bleeding PSA of AV graft Procedures:2D Echo, Colorflow Doppler, Stat SUMMARY: LV EF is normal. RV systolic function is normal. Moderate to large circumferential pericardial effusion. Respiratory variation noted across the mitral and tricuspid valves suggestive of increased intrapericardial pressures. No RV diastolic collapse. FINDINGS: LV: LV size is small. There is mild concentric LV hypertrophy. LVEF is hyperdynamic. Overall wall motion is hyperdynamic. EstimatedEF is >70%. RV: RV size is normal. A pacemaker wire is seen in the RV. RV systolicfunction is normal. RV wall motion is normal. LA: LA volume is severely enlarged. RA: RA volume is normal. A pacemaker wire is seen. AO: Aortic root diameter is normal in size. Ascending aorta diameteris normal. JANEY: Moderate to large circumferential pericardial effusion. Respiratoryvariation noted across the mitral and tricuspid valvessuggestive of increased intrapericardial pressures. NoRV diastolic collapse. AV: Mild to moderate calcification of AV leaflets. Mild aortic regurgitation.Mild aortic valve stenosis. Estimated mean aorticvalve gradient 11 mmHg with a valve area of 1.4 cm2. MV: Mild to moderate calcification of mitral leaflets. Severe mitralannular calcification. Mild mitral regurgitation. Mildmitral stenosis. Estimated mean mitral valve gradient 4mmHg at a heart rate of 78 b/min. PV: No structural PV abnormalities noted. A trace of pulmonic regurgitation. TV: No structural TV abnormalities noted. A trace of tricuspid regurgitation Other:Estimated PA systolic pressure is 46 mmHg, assuming a mean RAPof 10 mmHg. MEASUREMENTS: 2D Parasternal Long [place] LVOT 1.9 cmLA Ds3.9 cm LVIDd2.9 cmIndex1.7 cm/m Ao Rtd 3.1 cm Index1.8 cm/m LVIDs1.9 cmLV Fodm936.4 g(87-129) LV%fs 35.7 % LVM Dbfik911.1 g/m2 IVSd 1.6 cmRWT1.3 LVPWd1.9 cm LA Sng Plane LA Area 25.8 cm2(8.8-23.4) LA Vol84.5 ml Index49.1 ml/m LA LngAx 6.2 cm Aorta Ao Asc 3.7 cm (2.1-3.4) DOPPLER AV For Flow/ZHENG AV pkVel 227 cm/s (100-170) AV AC/ET 0.3 AV mnVel 148 cm/Marilyn TVI41.9 cm AV pkPG 20.6 mmHgAVpkAcRt 4164.3 cm/s2 AV Mean G 10.6 mmHgAV ZyKx531.8 cm/s2 AV AC 83 msec (83-118) AV Area1.4 cm2(3-5) AV ET283 msec LVOT For Flow LVOT Area2.8 cm2 LVOT SV 60.5 ml PAUAlfXua013.7 cm/sHR77.1 bpm LVOTpkPG 4.1 mmHgLVOT CO4.7 l/min LVOTmnPG 2.4 mmHgLVOT CI2.7 l/m/m2 LVOT TVI21.3 cm MV For Flow/Valve Assess MV Dec T 859 msecMV Mean G3.9 mmHg MV pkVel 172.7 cm/sMV TVI33.2 cm MV pkPG 11.9 mmHg Signed 02/26/2018 02:41 PM Marilee King M.D. Procedure Note Interface, Radiology Results In - 02/26/2018 2:41 PM BOMB LOADER Echocardiography Report [address] [place] [address] Pat.Name: YEYO COLLINS Pat.ID: [id number] .Date: 02/26/2018 Refer.MD: HERMAN FRAGA MD Exam Time: 7:27:00 AM Study Type:Routine Echo Height: 63in Weight: 151lb BSA: 1.72 m2 Age: 4 1935,82Y Sex: FEMALE BP: 141/71 HR: 87 bpm Sonogrphr: Laya Coffman RDCS, ISABELT Pat. Stat.:Inpatient Room: [facility] Study Status:Final Echo Event ID:[id number] Order ID: [id number] Reason for Study:Pre-op clearance History / Clinical:Congestive Heart Failure, Coronary Artery Disease, Diabetes, Hyperlipidemia, Hypertension, ESRD/on HD, Anemia, Left BKA, Bleeding PSA of AV graft Procedures:2D Echo, Colorflow Doppler, Stat SUMMARY: LV EF is normal. RV systolic function is normal. Moderate to large circumferential pericardial effusion. Respiratory variation noted across the mitral and tricuspid valves suggestive of increased intrapericardial pressures. No RV diastolic collapse. FINDINGS: LV: LV size is small. There is mild concentric LV hypertrophy. LV EF is hyperdynamic. Overall wall motion is hyperdynamic. Estimated EF is >70%. RV: RV size is normal. A pacemaker wire is seen in the RV. RV systolic function is normal. RV wall motion is normal. LA: LA volume is severely enlarged. RA: RA volume is normal. A pacemaker wire is seen. AO: Aortic root diameter is normal in size. Ascending aorta diameter is normal. JANEY: Moderate to large circumferential pericardial effusion. Respiratory variation noted across the mitral and tricuspid valves suggestive of increased intrapericardial pressures. No RV diastolic collapse. AV: Mild to moderate calcification of AV leaflets. Mild aortic regurgitation. Mild aortic valve stenosis. Estimated mean aortic valve gradient 11 mmHg with a valve area of 1.4 cm2. MV: Mild to moderate calcification of mitral leaflets. Severe mitral annular calcification. Mild mitral regurgitation. Mild mitral stenosis. Estimated mean mitral valve gradient 4 mmHg at a heart rate of 78 b/min. PV: No structural PV abnormalities noted. A trace of pulmonic regurgitation. TV: No structural TV abnormalities noted. A trace of tricuspid regurgitation Other: Estimated PA systolic pressure is 46 mmHg, assuming a mean RAP of 10 mmHg. MEASUREMENTS: 2D Parasternal Long [place] LVOT 1.9 cm LA Ds 3.9 cm LVIDd 2.9 cm Index 1.7 cm/m Ao Rtd 3.1 cm Index 1.8 cm/m LVIDs 1.9 cm LV Mass 201.4 g (87-129) LV%fs 35.7 % LVM Index 117.1 g/m2 IVSd 1.6 cm RWT 1.3 LVPWd 1.9 cm LA Sng Plane LA Area 25.8 cm2 (8.8-23.4) LA Vol 84.5 ml Index 49.1 ml/m LA LngAx 6.2 cm Aorta Ao Asc 3.7 cm (2.1-3.4) DOPPLER AV For Flow/ZHENG AV pkVel 227 cm/s (100-170) AV AC/ET 0.3 AV mnVel 148 cm/s AV TVI 41.9 cm AV pkPG 20.6 mmHg AVpkAcRt 4164.3 cm/s2 AV Mean G 10.6 mmHg AV DeRt 801.8 cm/s2 AV AC 83 msec (83-118) AV Area 1.4 cm2 (3-5) AV ET 283 msec LVOT For Flow LVOT Area 2.8 cm2 LVOT SV 60.5 ml LVOTpkVel 100.7 cm/s HR 77.1 bpm LVOTpkPG 4.1 mmHg LVOT CO 4.7 l/min LVOTmnPG 2.4 mmHg LVOT CI 2.7 l/m/m2 LVOT TVI 21.3 cm MV For Flow/Valve Assess MV Dec T 859 msec MV Mean G 3.9 mmHg MV pkVel 172.7 cm/s MV TVI 33.2 cm MV pkPG 11.9 mmHg Signed 02/26/2018 02:41 PM Marilee King M.D. Performing Organization Address City/State/Zipcode Phone Number [facility] [id number] [place] [address] Comprehensive metabolic panel (02/26/2018 1:50 AM BOMB LOADER) Sodium 138 135 - 148 mEq/L [facility] Potassium 3.5 3.5 - 5.0 mEq/L [facility] Chloride 100 98 - 112 mEq/L [facility] CO2 26 24 - 31 mEq/L [facility] Anion gap 12@ANIO 7 - 15 mEq/L [facility] BUN 12 8 - 23 mg/dL [facility] Creatinine 3.07 (H) 0.50 - 0.90 mg/dL [facility] Glucose 110 (H) 65 - 99 mg/dL [facility] Calcium 9.5 8.8 - 10.2 mg/dL [facility] Protein 6.6 6.3 - 8.3 g/dL [facility] Comment: [facility] [place] 4.6-7.0 g/dL 1 week 4.4-7.6 g/dL 7 months-1year5.1-7.3 g/dL 1-2 years5.6-7.5 g/dL >3 years6.0-8.0 g/dL 18-150 6.3-8.3 g/dL Albumin 2.7 (L) 3.5 - 5.0 g/dL [facility] A/G ratio 0.7 0.7 - 3.8 [facility] Alkaline phosphatase 64 35 - 104 U/L [facility] AST 20 10 - 35 U/L [facility] ALT 8 5 - 50 U/L [facility] Total bilirubin 0.4 0.0 - 1.2 mg/dL [facility] Specimen Plasma specimen Performing Organization Address City/State/Zipcode Phone Number [facility] DEPARTMENT OF PATHOLOGY AND [address] [place] [address] [facility] [place] [phone] [place] [address] after 03/22/2017 Insurance Payer Benefit Plan / Group Subscriber ID Type Phone Address MEDICARE MEDICARE PART A AND B xxxxxxxxxx Medicare [place], [place] Advance Directives Patient has advance care planning documents on file. For more information, please contact:[address] [address]
--- NOTE | 2018-03-23 14:50 | RAD REPORT ---
EXAM DESCRIPTION: CT - Head Brain Wo Cont - 03/23/2018 2:31 pm CLINICAL HISTORY: Transient alteration of awareness COMPARISON: February 20, 2018 TECHNIQUE: Axial 5 mm thick images of the head were obtained without IV contrast. All CT scans are performed using dose optimization technique as appropriate and may include automated exposure control or mA/KV adjustment according to patient size. FINDINGS: No intracranial hemorrhage, mass, edema or shift of mid-line structures. No acute infarcti on changes seen. No cortical edema or sulcal effacement. Moderate atrophy and chronic ischemic change matches prior study. Ventricles are in proportion to volume loss. Arterial and physiologic calcifica tions are present. Mastoid air cells and visualized portions of the paranasal sinuses are clear. No acute bony findings. IMPRESSION: No acute intracranial finding. Moderate atrophy and chronic ischemic changes are present. Ventricular size is in proportion to vol ume loss. Chronic ischemic changes can mask nonhemorrhagic acute infarction. MR brain followup can be obtained if there is ongoing concern for acute ischemia.
--- NOTE | 2018-03-23 14:59 | RAD REPORT ---
EXAM DESCRIPTION: RAD - Chest Single View - 03/23/2018 2:18 pm CLINICAL HISTORY: Transient alteration of awareness, shortness of breath, dialysis patient COMPARISON: February 25 TECHNIQUE: AP portable chest image was obtained 1403 hour . FINDINGS: Lung volumes are low. Interstitial and alveolar opacification is present similar or slight ly less prominent than seen previously. Dialysis catheter and pacemaker remain in place. Heart size n ormal range for portable imaging and shallow inspiration. No pneumothorax. Small left pleural effusio n is suspected. No acute bony abnormality seen. No acute aortic findings suspected. IMPRESSION: Failure or residual volume overload are suspected. Pattern is less prominent than seen D ecember 3rd.
[2018-03-23 15:08] LABS: Protime INR 1.18
[2018-03-23 15:09] LABS: Absolute Lymphocytes (CBC) 0.8 K/uL (0.7-4.9); Absolute Monocytes 0.8 K/uL (0.1-1.3); Absolute Neutrophil 10.8 K/uL (1.8-8.0); Basophils % 0.3 % (0-1.3); Eosinophils % 1.6 % (0-4.4); Hematocrit 35.6 % (36.0-45.0); Lymphocytes % 6.5 % (15.3-44.8); MPV 8.7 fL (7.6-11.3); Monocytes % 6.1 % (3.3-12.3); RBC Red Blood Cell Count 4.07 M/uL (3.86-4.86)
[2018-03-23 15:27] LABS: Albumin 2.5 g/dL (3.4-5.0); Bilirubin Direct 0.2 mg/dL (0-0.2); Bilirubin Total 0.5 mg/dL (0.2-1.0); Protein, Total 7.3 g/dL (6.4-8.2)
[2018-03-23 15:28] LABS: Troponin (Emerg Dept Use Only) 5.03 ng/mL (0.0-0.045)
[2018-03-23 15:41] LABS: Blood Morphology Comment NOT SEEN (NOT SEEN); Platelet Estimate ADEQ; Urine White Blood Cell Casts OK
[2018-03-23] MEDS ORDERED: ASPIRIN 81 MG CHEWABLE TABLET ONE (16:05)
--- NOTE | 2018-03-23 16:16 | EKG ---
Test Date: 2018-03-23 Test Time: 13:03:09 Metal Room Dental Technician: [facility] MEASUREMENT RESULTS: Intervals: Rate: 92 DE: 208 QRSD: 84 QT: 390 QTc: 482 [place]: P: 107 DE: 208 QRS: 29 T: 135 INTERPRETIVE STATEMENTS: Normal sinus rhythm Inferior infarct, possibly acute Cannot rule out Anterior infarct, age undetermined Consider right ventricular involvement in acute inferior infarct Abnormal ECG Compared to ECG 02/20/2018 15:06:36 no significant change from previous ECG Left-axis deviation no longer present Myocardial infarct finding still present Electronically Signed On 03-23-18 16:16:37 IMPROVEMENT MANAGER by Marcelo Napoles
--- NOTE | 2018-03-23 16:55 | ER ---
Nurse's Notes [facility] Name: Dianelys Carroll Age: 82 yrs Sex: Female : 1935 Arrival Date: 03/23/2018 Time: 13:12 Bed 2 Private MD: Diagnosis: ST elevation (STEMI) myocardial infarction of other sites Presentation: 03/23 12:55 Presenting complaint: EMS states: pt was at dialysis today, finished her treatment but tw2 became confused and altered, pt aa\T\ox2 self and birthday upon EMS arrival, pt reports she thought she was at a friends house but she realized she was not, she was at dialysis, so staff called for EMS. 12:55 Method Of Arrival: EMS: [facility] tw2 12:55 Acuity: EFRAÍN 2 tw2 13:44 Transition of care: patient was not received from another setting of care. Onset of sg symptoms was March 23, 2018. Risk Assessment: Do you want to hurt yourself or someone else? Patient reports no desire to harm self or others. Initial Sepsis Screen: Does the patient meet any 2 criteria? No. Patient's initial sepsis screen is negative. Does the patient have a suspected source of infection? No. Patient's initial sepsis screen is negative. Care prior to arrival: None. Historical: - Allergies: 13:48 altase; sg 13:48 clopidogrel bisulfate; sg 13:48 Codeine; sg 13:48 Demerol; sg 13:48 enalapril maleate; sg 13:48 enalaprilat dihydrate; sg 13:48 Ibuprofen; sg 13:48 OPIATES; sg 13:48 propoxyphene napsylate; sg 13:48 Ramipril; sg 13:48 Simvastatin; sg 13:48 Vioxx; sg - Home Meds: 13:48 Ativan 1 mg Oral TbER 1 tab every 6 hours for Anxiety [Active]; sg 13:50 calcium acetate 667 mg Oral cap 2 caps twice a day [Active]; carvedilol 3.125 mg Oral sg TbER 1 tab 2 times per day [Active]; citalopram 20 mg TbER once daily for Anxiety with Depression [Active]; clonidine HCl 0.1 mg Oral TbER 1 tab 2 times per day [Active]; Effient 10 mg Oral TbER 1 tab once daily [Active]; gabapentin 300 mg Oral cap 1 cap nightly [Active]; Imodium Oral [Active]; Lipitor 40 mg Oral TbER 1 tab once daily [Active]; lisinopril 20 mg Oral TbER 1 tab once daily [Active]; novolin SS [Active]; tramadol 50 mg Oral TbER [Active]; - PMHx: 13:48 Anemia; Diabetes - IDDM; Dialysis; ESRD; High Cholesterol; hypercalcemia; sg HYPERGLYCEMIA; hyperkalemia; hyperparathyroidism; Pacemaker; - Immunization history:: Adult Immunizations unknown. - Social history:: Smoking status: unknown. - Ebola Screening: : Patient negative for fever greater than or equal to 101.5 degrees Fahrenheit, and additional compatible Ebola Virus Disease symptoms Patient denies exposure to infectious person Patient denies travel to an Ebola-affected area in the 21 days before illness onset No symptoms or risks identified at this time. Screenin:56 Abuse screen: Denies threats or abuse. Nutritional screening: No deficits noted. tw2 Tuberculosis screening: No symptoms or risk factors identified. Fall Risk Secondary diagnosis (15 points) impaired mobility. Assessment: 13:00 Reassessment: pacemaker noted to upper right chest. General: Appears in no apparent tw2 distress. Behavior is appropriate for age. Pain: Denies pain. Neuro: Level of Consciousness is awake, alert, obeys commands, Oriented to person, and only, pt states she was in a friends apartment with a glass door. Cardiovascular: Heart tones S1 S2 Patient's skin is warm and dry. Dialysis shunt: in the left arm, with palpable thrill, with auscultated bruit, with no erythema, with no edema, no bleeding noted. Respiratory: Airway is patent Respiratory effort is even, unlabored, Respiratory pattern is regular, symmetrical, Breath sounds are clear bilaterally. GI: No signs and/or symptoms were reported involving the gastrointestinal system. : No signs and/or symptoms were reported regarding the genitourinary system. EENT: No signs and/or symptoms were reported regarding the EENT system. Derm: Decubitus located on sacrum approximately 1.5 cm to 2.5 cm is stage II has macerated edges. 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 14:30 Reassessment: pt is in CT at this time. tw2 14:47 Reassessment: Patient appears in no apparent distress at this time. No changes from tw2 previously documented assessment. Patient and/or family updated on plan of care and expected duration. Pain level reassessed. 15:20 Reassessment: Patient appears in no apparent distress at this time. No changes from tw2 previously documented assessment. Patient and/or family updated on plan of care and expected duration. Pain level reassessed. 16:22 Reassessment: Patient appears in no apparent distress at this time. No changes from tw2 previously documented assessment. Patient and/or family updated on plan of care and expected duration. Pain level reassessed. 17:25 Reassessment: Patient appears in no apparent distress at this time. No changes from tw2 previously documented assessment. Patient and/or family updated on plan of care and expected duration. Pain level reassessed. Vital Signs: 12:55 BP 109 / 47; Pulse 92; Resp 17; Temp 98.7(O); Pulse Ox 98% on R/A; Pain 0/10; tw2 13:53 BP 101 / 45; Pulse 89; Resp 20; Pulse Ox 95% on R/A; tw2 14:48 BP 123 / 51; Pulse 86; Resp 17; Pulse Ox 100% on R/A; tw2 15:58 BP 113 / 59; Pulse 84; Resp 17; Pulse Ox 99% on R/A; tw2 17:05 BP 134 / 66; Pulse 83; Resp 17; Pulse Ox 100% on R/A; tw2 ED Course: 12:55 Bed in low position. Call light in reach. Side rails up X2. Adult w/ patient. Cardiac tw2 monitor on. Pulse ox on. NIBP on. Warm blanket given. 13:12 Patient arrived in ED. dm5 13:13 Asad Baker PA is PHCP. jmm 13:13 Magnolia Munoz MD is Attending Physician. jmm 13:43 Chinmay Abbasi, JOSE is Primary Nurse. sg 13:46 Triage completed. sg 13:46 Arm band placed on. sg 14:15 Chest Single View In Process Unspecified. EDMS 14:29 Head Brain Wo Cont In Process Unspecified. EDMS 14:40 No provider procedures requiring assistance completed. Inserted saline lock: 22 gauge tw2 in right antecubital area, using aseptic technique. Blood collected. 15:42 Notified Nurse Practitioner and/or Physician Cylinder Grinder of a critical lab result(s), sg Elevated Troponin. 15:55 Sprinkler Repair Technician called and left message with answering service for Asad ANGLIN/ per answering eb service she will page Dr. Napoles is water restoration technician and will call back. 15:57 Sprinkler Repair Technician returned call and connected with Asad ANGLIN for patient admission consulation.eb 16:58 \T\[id number] initiated transfer with Yarely Meza from the [facility] transfer eb center/ \T\1632 administrative approval given by Yarely Meza pt going to the Automatic Nailing Machine Operator/ Dr. Lambert accepted the patient in transfer. 17:05 Adelaida Vazquez, RN is Primary Nurse. tw2 17:17 Patient transferred, IV remains in place. intact, No redness/swelling at site. Pressure sg dressing applied. Administered Medications: 15:58 Drug: Aspirin Chewable Tablet 324 mg Route: PO; tw2 17:06 Follow up: Response: No adverse reaction tw2 Outcome: 16:55 ER care complete, transfer ordered by MD. nayak 17:17 Transferred by helicopter to [facility], Transfer form completed. sg 17:17 Condition: stable 17:17 Instructed on the need for transfer, safety practices, report given to Zeina Vicente RN Demonstrated understanding of instructions. 17:38 Patient left the ED. tw2 Signatures: Dispatcher [employer] EDMS Sahra Perez, RN RN dm5 Chinmay Abbasi RN RN Asad Summers PA PA jmm Wise, Tara, RN RN tw2 Neema Cee Corrections: (The following items were deleted from the chart) 13:55 13:44 Presenting complaint: EMS states: pt was at dialysis today, finished her tw2 treatment but became confused and altered, pt aa\T\ox2 self and birthday upon EMS arrival, pt reports she thought she was at a friends house but she realized she was not, she was at dialysis, so staff called for EMS sg 13:55 13:44 Method Of Arrival: EMS: [facility] sg tw2 13:55 13:44 Acuity: EFRAÍN 2 sg tw2 17:37 16:22 Reassessment: Patient appears in no apparent distress at this time. No changes tw2 from previously documented assessment. Patient and/or family updated on plan of care and expected duration. Pain level reassessed. Patient is alert, oriented x 3, equal unlabored respirations, skin warm/dry/pink. tw2 17:37 15:20 Reassessment: Patient appears in no apparent distress at this time. No changes tw2 from previously documented assessment. Patient and/or family updated on plan of care and expected duration. Pain level reassessed. Patient is alert, oriented x 3, equal unlabored respirations, skin warm/dry/pink. tw2
--- NOTE | 2018-03-23 16:55 | EDPHYS ---
Physician Documentation [facility] Name: Dianelys Carroll Age: 82 yrs Sex: Female : 1935 Arrival Date: 03/23/2018 Time: 13:12 Bed 2 Private MD: ED Physician Magnolia Munoz HPI: 03/23 13:25 This 82 yrs old Female presents to ER via Unassigned with complaints of jmm confusion. 13:25 The patient presents with confusion. Onset: The symptoms/episode began/occurred just jmm prior to arrival. Associated signs and symptoms: Pertinent negatives: abdominal pain, chest pain. This is a 82 year old female with a history of ESRD that presents to the ED with confusion beginning while at dialysis. These symptoms have occurred in the past after dialysis. . Historical: - Allergies: 13:48 altase; sg 13:48 clopidogrel bisulfate; sg 13:48 Codeine; sg 13:48 Demerol; sg 13:48 enalapril maleate; sg 13:48 enalaprilat dihydrate; sg 13:48 Ibuprofen; sg 13:48 OPIATES; sg 13:48 propoxyphene napsylate; sg 13:48 Ramipril; sg 13:48 Simvastatin; sg 13:48 Vioxx; sg - Home Meds: 13:48 Ativan 1 mg Oral TbER 1 tab every 6 hours for Anxiety [Active]; sg 13:50 calcium acetate 667 mg Oral cap 2 caps twice a day [Active]; carvedilol 3.125 mg Oral sg TbER 1 tab 2 times per day [Active]; citalopram 20 mg TbER once daily for Anxiety with Depression [Active]; clonidine HCl 0.1 mg Oral TbER 1 tab 2 times per day [Active]; Effient 10 mg Oral TbER 1 tab once daily [Active]; gabapentin 300 mg Oral cap 1 cap nightly [Active]; Imodium Oral [Active]; Lipitor 40 mg Oral TbER 1 tab once daily [Active]; lisinopril 20 mg Oral TbER 1 tab once daily [Active]; novolin SS [Active]; tramadol 50 mg Oral TbER [Active]; - PMHx: 13:48 Anemia; Diabetes - IDDM; Dialysis; ESRD; High Cholesterol; hypercalcemia; sg HYPERGLYCEMIA; hyperkalemia; hyperparathyroidism; Pacemaker; - Immunization history:: Adult Immunizations unknown. - Social history:: Smoking status: unknown. - Ebola Screening: : Patient negative for fever greater than or equal to 101.5 degrees Fahrenheit, and additional compatible Ebola Virus Disease symptoms Patient denies exposure to infectious person Patient denies travel to an Ebola-affected area in the 21 days before illness onset No symptoms or risks identified at this time. ROS: 13:25 Constitutional: Negative for fever, chills, and weight loss, Cardiovascular: Negative jmm for chest pain, palpitations, and edema, Respiratory: Negative for shortness of breath, cough, wheezing, and pleuritic chest pain, Abdomen/GI: Negative for abdominal pain, nausea, vomiting, diarrhea, and constipation. 13:25 Neuro: Positive for altered mental status. 13:25 All other systems are negative. Exam: 13:25 Head/Face: atraumatic. Eyes: EOMI, no conjunctival erythema appreciated ENT: Moist jmm Mucus Membranes Neck: Trachea midline, Supple Chest/axilla: Normal chest wall appearance and motion. Cardiovascular: Regular rate and rhythm. No edema appreciated Respiratory: Normal respirations, no respiratory distress appreciated Abdomen/GI: Non distended, soft Back: Normal ROM Skin: General appearance color normal MS/ Extremity: Moves all extremities, no obvious deformities appreciated, no edema noted to the lower extremities 13:25 Constitutional: The patient appears alert, awake, anxious. 13:25 Neuro: Orientation: to person, time, Not oriented to place. 13:25 Neuro: Mentation: is normal, Motor: is normal, Gait: unable to assess, left leg amputation. 13:25 Psych: Behavior/mood is pleasant, cooperative. Vital Signs: 12:55 BP 109 / 47; Pulse 92; Resp 17; Temp 98.7(O); Pulse Ox 98% on R/A; Pain 0/10; tw2 13:53 BP 101 / 45; Pulse 89; Resp 20; Pulse Ox 95% on R/A; tw2 14:48 BP 123 / 51; Pulse 86; Resp 17; Pulse Ox 100% on R/A; tw2 15:58 BP 113 / 59; Pulse 84; Resp 17; Pulse Ox 99% on R/A; tw2 17:05 BP 134 / 66; Pulse 83; Resp 17; Pulse Ox 100% on R/A; tw2 MDM: 13:22 Patient medically screened. [facility] 16:53 Data reviewed: vital signs, nurses notes. Counseling: I had a detailed discussion with malini the patient and/or guardian regarding: the historical points, exam findings, and any diagnostic results supporting the discharge/admit diagnosis, lab results, radiology results, the need to transfer to another facility. ED course: I discussed the patient with Dr. Napoles whom reviewed the ekg and recommended transfer for catheterization. I discussed the patient with Dr. Lambert whom accepted admission. Did not recommend TPA. . 16:53 Data reviewed: vital signs. [facility] 03/23 15:01 Order name: Basic Metabolic Panel; Complete Time: 15:30 [facility] 03/23 15:58 Interpretation: NA 131. [facility] 03/23 15:01 Order name: Liver (Hepatic) Function; Complete Time: 15:30 [facility] 03/23 15:01 Order name: Troponin (Emerg Dept Use Only); Complete Time: 15:30 [facility] 03/23 15:02 Order name: NT PRO-BNP; Complete Time: 15:30 [facility] 03/23 15:02 Order name: Magnesium; Complete Time: 15:30 [facility] 03/23 15:02 Order name: CBC with Automated Diff; Complete Time: 15:44 [facility] 03/23 15:02 Order name: Protime (+INR); Complete Time: 15:30 [facility] 03/23 13:23 Order name: EKG; Complete Time: 15:54 [facility] 03/23 13:23 Order name: Cardiac monitoring; Complete Time: 16:17 [facility] 03/23 13:23 Order name: EKG - Nurse/Tech; Complete Time: 16:17 [facility] 03/23 13:23 Order name: IV Saline Lock; Complete Time: 14:46 [facility] 03/23 13:23 Order name: Labs collected and sent; Complete Time: 14:46 [facility] 03/23 13:23 Order name: O2 Per Protocol; Complete Time: 14:46 [facility] 03/23 13:23 Order name: O2 Sat Monitoring; Complete Time: 14:46 [facility] 03/23 14:04 Order name: Head Brain Wo Cont; Complete Time: 15:30 [facility] 03/23 14:04 Order name: Chest Single View; Complete Time: 15:30 [facility] 03/23 15:16 Order name: CBC Smear Scan; Complete Time: 15:44 [facility] 03/23 15:46 Order name: EKG - Nurse/Tech; Complete Time: 16:06 malini Administered Medications: 15:58 Drug: Aspirin Chewable Tablet 324 mg Route: PO; tw2 17:06 Follow up: Response: No adverse reaction tw2 Disposition: 16:49 Co-signature as Attending Physician, Magnolia Munoz MD I saw this patient when ma2 presented to the er.. bib ems for confusion after HD.. she was alert oriented to time and person and not place.. she had no cp or angina equivalent. initial ekg was unchanged from prior, her troponin came back elevated to 5.. baseline trop is 0.5.. discussed with dr. napoles who agrees ekg unchanged from prior.. given no cath available today or tomorrow. patient will benefit from being transferred to cath capable center for NSTEMI . Disposition: 03/23/18 16:[address] [facility]. Diagnosis is ST elevation (STEMI) myocardial infarction of other sites. - Reason for transfer: Higher level of care. - Accepting physician is Fausto. - Condition is Stable. - Problem is new. - Symptoms are unchanged. Signatures: Dispatcher [employer] EDChinmay Oliva RN RN Asad Summers PA PA jmm Wise, Tara, RN RN 2 Magnolia Munoz MD MD ri2 Corrections: (The following items were deleted from the chart) 16:05 15:54 Chest Single View+RAD.RAD.BRZ ordered. EDKY EDMS 16:25 15:54 Head Brain Wo Cont+CT.RAD.BRZ ordered. EDKY EDMS 17:38 16:55 03/23/2018 16:[address] [facility]. Diagnosis is tw2 ST elevation (STEMI) myocardial infarction of other sites. Reason for transfer: Higher level of care. Accepting physician is Fausto. Condition is Stable. Problem is new. Symptoms are unchanged. malini
[2018-03-23 18:24] VITALS: BP 134/66; O2SAT 100
--- NOTE | 2018-03-24 10:14 | EKG ---
Test Date: 2018-03-23 Test Time: 15:57:34 Ballpoint Pen Assembly Machine Operator: [facility] MEASUREMENT RESULTS: Intervals: Rate: 85 FL: 228 QRSD: 82 QT: 392 QTc: 466 [place]: P: 93 FL: 228 QRS: 34 T: 137 INTERPRETIVE STATEMENTS: Sinus rhythm with 1st degree AV block Inferior infarct, possibly acute T wave abnormality, consider lateral ischemia Abnormal ECG Compared to ECG 03/23/2018 13:03:09 First degree AV block now present Myocardial infarct finding still present Electronically Signed On 03-24-18 10:13:45 DIRECTOR OF MARKETING ANALYTICS by Marcelo Napoles
== END 2018-03-23 17:38 | disposition short-term general hospital (02) ==
LOC: ER 12:58
DX: I21.29 ST elevation (STEMI) myocardial infarction involving other sites (principal); I44.0 Atrioventricular block, first degree; D64.9 Anemia, unspecified; E21.3 Hyperparathyroidism, unspecified; E78.00 Pure hypercholesterolemia, unspecified; E11.22 Type 2 diabetes mellitus with diabetic chronic kidney disease; N18.6 End stage renal disease; Z99.2 Dependence on renal dialysis; Z79.4 Long term (current) use of insulin; Z79.899 Other long term (current) drug therapy; Z95.0 Presence of cardiac pacemaker
CPT/HCPCS: 36415; 70450; 71045; 80048; 80076; 83735; 83880; 84484; 85025; 85610; 93005; 99285

== ENCOUNTER 2018-04-04 11:24 | Observation (INO) | payer OTHER ==
--- OUTSIDE RECORDS SUMMARY | 2018-04-04 11:28 | XMS REPORT | Clinical Summary ---
:1935 Author Organization [facility] Address [address] [place] [address] Care Team Providers Name Role Phone Arslan [...] hours as needed for itching or sleep. nystatin Apply 1 0 Active (MYCOSTATIN) application [...] 018 (four) hours as needed (for pain). LORAZepam (ATIVAN) Take 1 mg by mouth 0 1 MG tablet every 6 (six) 8 018 hours as needed for anxiety (related to anxiety disorder). 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); 03/11/2018 Stanton Ronquillo Anemia, unspecified type MD Shanika Purvis Thuyen T., MD 02/25/2018 Intake Access N/A after 04/03/2017 Family History Medical History Relation Name Comments [...] Taken Blood Pressure 150/86 03/11/2018 7:50 PM SEXER Pulse 84 03/11/2018 7:50 PM SEXER Temperature 36.1 C (97 F) 03/11/2018 7:50 PM SEXER Respiratory Rate 14 03/11/2018 7:50 PM SEXER Oxygen Saturation 96% 03/11/2018 7:50 PM SEXER Inhaled Oxygen Concentration - - Weight 57.7 kg (127 lb 2 oz) 03/08/2018 7:00 AM SEXER Height 160 cm (5' 3") 03/07/2018 12:36 PM SEXER Body Mass Index 22.52 03/08/2018 7:00 AM SEXER Plan of Treatment Health Maintenance Due Date Last Done Comments SHINGLES VACCINES (1 of 2) 1986 PNEUMOCOCCAL POLYSACCHARIDE VACCINE AGE 65 AND OVER 2001 PNEUMOCOCCAL-13 2001 INFLUENZA VACCINE 10/24/2017 Implants Implanted Type Area Oncology Account Specialist Device Shelf Model / Identifier Expiration Serial / Date Lot Graft Vasclr Acuseal 40cm 6mm - [id number] - [id number] Vascular N/A: N/A W L GORE 05/19/2019 [id number] / Implanted: Qty: 1 on 11/08/2016 by Herman Fraga MD Graft [id number] / [id number] Patch Cvs For Vasclr 0.5mm 1x9cm Acusefl - [id number] - [id number] Vascular N/ A: N/A W L GORE 01/09/2021 [id number] / Implanted: Qty: 1 on 03/07/2018 by Herman Fraga MD Graft [id number] / [id number] Procedures Procedure Name Priority Date/Time Associated Comments Diagnosis POC GLUCOSE Routine 03/11/2018 5:03 Results for this PM SEXER procedure are in the results section. POC GLUCOSE Routine 03/11/2018 1:26 Results for this PM SEXER procedure are in the results section. HC COMPLETE BLD COUNT Routine 03/11/2018 1:19 Results for this W/AUTO DIFF PM SEXER procedure are in the results section. ESTIMATED GFR Routine 03/11/2018 1:14 Results for this PM SEXER procedure are in the results section. PHOSPHORUS LEVEL Routine 03/11/2018 1:14 Results for this PM SEXER procedure are in the results section. BASIC METABOLIC PANEL Routine 03/11/2018 1:14 Results for this PM SEXER procedure are in the results section. POC GLUCOSE Routine 03/11/2018 11:37 Results for this AM SEXER procedure are in the results section. HEMODIALYSIS Routine 03/11/2018 10:07 AM SEXER POC GLUCOSE Routine 03/11/2018 7:44 Results for this AM SEXER procedure are in the results section. POC GLUCOSE Routine 03/10/2018 8:59 Results for this PM SEXER procedure are in the results section. POC GLUCOSE Routine 03/10/2018 5:21 Results for this PM SEXER procedure are in the results section. POC GLUCOSE Routine 03/10/2018 12:26 Results for this PM SEXER procedure are in the results section. POC GLUCOSE Routine 03/10/2018 7:56 Results for this AM SEXER procedure are in the results section. POC GLUCOSE Routine 03/09/2018 10:08 Results for this PM SEXER procedure are in the results section. POC GLUCOSE Routine 03/09/2018 6:35 Results for this PM SEXER procedure are in the results section. POC GLUCOSE Routine 03/09/2018 5:00 Results for this PM SEXER procedure are in the results section. POC GLUCOSE Routine 03/09/2018 11:51 Results for this AM SEXER procedure are in the results section. HEMODIALYSIS Routine 03/09/2018 10:41 AM SEXER ECHOCARDIOGRAM 2D Routine 03/09/2018 9:01 Results for this COMPLETE W MMODE AM SEXER procedure are in SPECTRAL COLOR DOPPLER the results (73733) section. POC GLUCOSE Routine 03/09/2018 7:42 Results for this AM SEXER procedure are in the results section. HC COMPLETE BLD COUNT Routine 03/09/2018 5:00 Results for this W/AUTO DIFF AM SEXER procedure are in the results section. ESTIMATED GFR Routine 03/09/2018 4:00 Results for this AM SEXER procedure are in the results section. PHOSPHORUS LEVEL Routine 03/09/2018 4:00 Results for this AM SEXER procedure are in the results section. BASIC METABOLIC PANEL Routine 03/09/2018 4:00 Results for this AM SEXER procedure are in the results section. POC GLUCOSE Routine 03/08/2018 10:26 Results for this PM SEXER procedure are in the results section. POC GLUCOSE Routine 03/08/2018 9:24 Results for this PM SEXER procedure are in the results section. TRANSFUSE RED BLOOD Routine 03/08/2018 9:05 CELLS PM SEXER TRANSFUSE RED BLOOD Routine 03/08/2018 7:49 CELLS PM SEXER HEMODIALYSIS Routine 03/08/2018 5:53 PM SEXER POC GLUCOSE Routine 03/08/2018 5:04 Results for this PM SEXER procedure are in the results section. POC GLUCOSE Routine 03/08/2018 3:15 Results for this PM SEXER procedure are in the results section. IR TUNNELED DIALYSIS Routine 03/08/2018 2:53 Results for this CATHETER PLACEMENT PM SEXER procedure are in the results section. POC GLUCOSE Routine 03/08/2018 11:17 Results for this AM SEXER procedure are in the results section. PREPARE RBC Timed 03/08/2018 10:58 Results for this AM SEXER procedure are in the results section. TYPE AND SCREEN Timed 03/08/2018 10:58 Results for this AM SEXER procedure are in the results section. POC GLUCOSE Routine 03/08/2018 7:17 Results for this AM SEXER procedure are in the results section. SMEAR REVIEW Routine 03/08/2018 4:37 Results for this AM SEXER procedure are in the results section. HC COMPLETE BLD COUNT Routine 03/08/2018 4:37 Results for this W/AUTO DIFF AM SEXER procedure are in the results section. ESTIMATED GFR Routine 03/08/2018 4:00 Results for this AM SEXER procedure are in the results section. PHOSPHORUS LEVEL Routine 03/08/2018 4:00 Results for this AM SEXER procedure are in the results section. BASIC METABOLIC PANEL Routine 03/08/2018 4:00 Results for this AM SEXER procedure are in the results section. POC GLUCOSE Routine 03/07/2018 9:55 Results for this PM SEXER procedure are in the results section. POC GLUCOSE Routine 03/07/2018 6:15 Results for this PM SEXER procedure are in the results section. POC GLUCOSE Routine 03/07/2018 4:32 Results for this PM SEXER procedure are in the results section. POC GLUCOSE Routine 03/07/2018 2:32 Results for this PM SEXER procedure are in the results section. IN AN ELECTIVE Routine 03/07/2018 1:32 ENDOTRACHEAL AIRWAY PM SEXER Procedure Note - Gael Coffman MD - 03/07/2018 1:32 PM SEXER ANESTHESIA INTUBATION Performed by: Gael Coffman MD [...] 1 THROMBECTOMY, GRAFT, AV 03/07/2018 1:10 PM SEXER AV graft malfunction, initial encounter ([facility]) Case Notes C-ARM, R/S PER RIYA 03/06 KMM Special Needs C-ARM SODIUM LEVEL, SYRINGE STAT 03/07/2018 12:40 PM Results for this SEXER procedure are in the results section. POTASSIUM, SYRINGE STAT 03/07/2018 12:40 PM Results for this SEXER procedure are in the results section. HEMOGLOBIN, SYRINGE STAT 03/07/2018 12:40 PM Results for this SEXER procedure are in the results section. GLUCOSE LEVEL, SYRINGE STAT 03/07/2018 12:40 PM Results for this SEXER procedure are in the results section. HEMODIALYSIS Routine 03/07/2018 12:22 PM SEXER POC GLUCOSE Routine 03/07/2018 11:13 AM Results for this SEXER procedure are in the results section. POC GLUCOSE Routine 03/07/2018 7:46 AM Results for this SEXER procedure are in the results section. POC GLUCOSE Routine 03/07/2018 5:13 AM Results for this SEXER procedure are in the results section. POC GLUCOSE Routine 03/07/2018 1:35 AM Results for this SEXER procedure are in the results section. POC GLUCOSE Routine 03/06/2018 9:23 PM Results for this SEXER procedure are in the results section. POC GLUCOSE Routine 03/06/2018 4:05 PM Results for this SEXER procedure are in the results section. POC GLUCOSE Routine 03/06/2018 12:51 PM Results for this SEXER procedure are in the results section. HEMODIALYSIS Routine 03/06/2018 12:08 PM SEXER POC GLUCOSE Routine 03/06/2018 7:30 AM Results for this SEXER procedure are in the results section. CLOSTRIDIUM DIFFICILE TOXIN Routine 03/06/2018 6:20 AM Results for this SEXER procedure are in the results section. HC COMPLETE BLD COUNT Routine 03/06/2018 4:20 AM Results for this W/AUTO DIFF SEXER procedure are in the results section. ESTIMATED GFR Routine 03/06/2018 4:00 AM Results for this SEXER procedure are in the results section. PROTHROMBIN TIME WITH INR Routine 03/06/2018 4:00 AM Results for this SEXER procedure are in the results section. PHOSPHORUS LEVEL Routine 03/06/2018 4:00 AM Results for this SEXER procedure are in the results section. BASIC METABOLIC PANEL Routine 03/06/2018 4:00 AM Results for this SEXER procedure are in the results section. POC GLUCOSE Routine 03/05/2018 10:56 PM Results for this SEXER procedure are in the results section. POC GLUCOSE Routine 03/05/2018 5:37 PM Results for this SEXER procedure are in the results section. POC GLUCOSE Routine 03/05/2018 12:11 PM Results for this SEXER procedure are in the results section. TROPONIN Timed 03/05/2018 8:00 AM Results for this SEXER procedure are in the results section. POC GLUCOSE Routine 03/05/2018 7:27 AM Results for this SEXER procedure are in the results section. ESTIMATED GFR Routine 03/05/2018 4:15 AM Results for this SEXER procedure are in the results section. PROTHROMBIN TIME WITH INR Routine 03/05/2018 4:15 AM Results for this SEXER procedure are in the results section. HC COMPLETE BLD COUNT Routine 03/05/2018 4:15 AM Results for this W/AUTO DIFF SEXER procedure are in the results section. PHOSPHORUS LEVEL Routine 03/05/2018 4:15 AM Results for this SEXER procedure are in the results section. MAGNESIUM LEVEL Routine 03/05/2018 4:15 AM Results for this SEXER procedure are in the results section. BASIC METABOLIC PANEL Routine 03/05/2018 4:15 AM Results for this SEXER procedure are in the results section. TROPONIN Timed 03/05/2018 4:15 AM Results for this SEXER procedure are in the results section. POC GLUCOSE Routine 03/04/2018 9:07 PM Results for this SEXER procedure are in the results section. XR CHEST 1 VW PORTABLE STAT 03/04/2018 7:03 PM Results for this SEXER procedure are in the results section. TYPE AND SCREEN Routine 03/04/2018 6:09 PM Results for this SEXER procedure are in the results section. POC GLUCOSE Routine 03/04/2018 5:58 PM Results for this SEXER procedure are in the results section. TROPONIN Timed 03/04/2018 4:00 PM Results for this SEXER procedure are in the results section. TROPONIN Routine 03/04/2018 2:17 PM Results for this SEXER procedure are in the results section. ECG 12-LEAD Routine 03/04/2018 1:48 PM Results for this SEXER procedure are in the results section. POC GLUCOSE Routine 03/04/2018 1:39 PM Results for this SEXER procedure are in the results section. POC GLUCOSE Routine 03/04/2018 11:53 AM Results for this SEXER procedure are in the results section. US DUPLEX HEMODIALYSIS AVG STAT 03/04/2018 9:20 AM Results for this AVF ACCESS SEXER procedure are in the results section. HEMODIALYSIS Routine 03/04/2018 9:05 AM SEXER POC GLUCOSE Routine 03/04/2018 7:47 AM Results for this SEXER procedure are in the results section. PROTHROMBIN TIME WITH INR Routine 03/04/2018 4:20 AM Results for this SEXER procedure are in the results section. HC COMPLETE BLD COUNT Routine 03/04/2018 4:20 AM Results for this W/AUTO DIFF SEXER procedure are in the results section. ESTIMATED GFR Routine 03/04/2018 4:00 AM Results for this SEXER procedure are in the results section. FERRITIN LEVEL Routine 03/04/2018 4:00 AM Results for this SEXER procedure are in the results section. TOTAL IRON BINDING CAPACITY Routine 03/04/2018 4:00 AM Results for this SEXER procedure are in the results section. PHOSPHORUS LEVEL Routine 03/04/2018 4:00 AM Results for this SEXER procedure are in the results section. MAGNESIUM LEVEL Routine 03/04/2018 4:00 AM Results for this SEXER procedure are in the results section. BASIC METABOLIC PANEL Routine 03/04/2018 4:00 AM Results for this SEXER procedure are in the results section. POC GLUCOSE Routine 03/03/2018 9:09 PM Results for this SEXER procedure are in the results section. POC GLUCOSE Routine 03/03/2018 5:17 PM Results for this SEXER procedure are in the results section. POC GLUCOSE Routine 03/03/2018 11:38 AM Results for this SEXER procedure are in the results section. POC GLUCOSE Routine 03/03/2018 7:23 AM Results for this SEXER procedure are in the results section. ESTIMATED GFR Routine 03/03/2018 4:00 AM Results for this SEXER procedure are in the results section. BASIC METABOLIC PANEL Routine 03/03/2018 4:00 AM Results for this SEXER procedure are in the results section. HC COMPLETE BLD COUNT Routine 03/03/2018 3:30 AM Results for this W/AUTO DIFF SEXER procedure are in the results section. HEMODIALYSIS CATHETER Routine 03/02/2018 8:59 PM ESRD (end Results for this PLACEMENT SEXER stage renal procedure are in disease) (HCC) the results section. POC GLUCOSE Routine 03/02/2018 6:33 PM Results for this SEXER procedure are in the results section. HEMODIALYSIS Routine 03/02/2018 5:35 PM SEXER POC GLUCOSE Routine 03/02/2018 5:26 PM Results for this SEXER procedure are in the results section. POC GLUCOSE Routine 03/02/2018 11:35 AM Results for this SEXER procedure are in the results section. POC GLUCOSE Routine 03/02/2018 7:28 AM Results for this SEXER procedure are in the results section. ESTIMATED GFR Routine 03/02/2018 4:00 AM Results for this SEXER procedure are in the results section. PHOSPHORUS LEVEL Routine 03/02/2018 4:00 AM Results for this SEXER procedure are in the results section. BASIC METABOLIC PANEL Routine 03/02/2018 4:00 AM Results for this SEXER procedure are in the results section. POC GLUCOSE Routine 03/01/2018 9:22 PM Results for this SEXER procedure are in the results section. POC GLUCOSE Routine 03/01/2018 5:40 PM Results for this SEXER procedure are in the results section. POC GLUCOSE Routine 03/01/2018 12:11 PM Results for this SEXER procedure are in the results section. POC GLUCOSE Routine 03/01/2018 7:54 AM Results for this SEXER procedure are in the results section. POC GLUCOSE Routine 03/01/2018 4:34 AM Results for this SEXER procedure are in the results section. HC COMPLETE BLD COUNT Routine 03/01/2018 4:30 AM Results for this W/AUTO DIFF SEXER procedure are in the results section. ESTIMATED GFR Routine 03/01/2018 4:00 AM Results for this SEXER procedure are in the results section. PHOSPHORUS LEVEL Routine 03/01/2018 4:00 AM Results for this SEXER procedure are in the results section. BASIC METABOLIC PANEL Routine 03/01/2018 4:00 AM Results for this SEXER procedure are in the results section. POC GLUCOSE Routine 02/28/2018 9:14 PM Results for this SEXER procedure are in the results section. POC GLUCOSE Routine 02/28/2018 4:04 PM Results for this SEXER procedure are in the results section. HEMODIALYSIS Routine 02/28/2018 12:09 PM SEXER POC GLUCOSE Routine 02/28/2018 11:34 AM Results for this SEXER procedure are in the results section. ECHOCARDIOGRAM 2D COMPLETE Routine 02/28/2018 9:13 AM Results for this W MMODE SPECTRAL COLOR SEXER procedure are in DOPPLER ([id number]) the results section. POC GLUCOSE Routine 02/28/2018 9:09 AM Results for this SEXER procedure are in the results section. CV INTRACARDIAC Routine 02/28/2018 8:48 AM Results for this ECHOCARDIOGRAM SEXER procedure are in the results section. CV PERICARDIOCENTESIS Routine 02/28/2018 8:48 AM Results for this SEXER procedure are in the results section. PROTEIN, MISC FLUID Routine 02/28/2018 8:35 AM Results for this SEXER procedure are in the results section. LDH, MISC FLUID Routine 02/28/2018 8:35 AM Results for this SEXER procedure are in the results section. GLUCOSE LEVEL, MISC FLUID Routine 02/28/2018 8:35 AM Results for this SEXER procedure are in the results section. CELL COUNT AND Routine 02/28/2018 8:35 AM Results for this DIFFERENTIAL, BODY FLUID SEXER procedure are in the results section. CYTOLOGY Routine 02/28/2018 6:32 AM Results for this (NON-GYNECOLOGICAL) REQUEST SEXER procedure are in the results section. ESTIMATED GFR Routine 02/28/2018 3:50 AM Results for this SEXER procedure are in the results section. PHOSPHORUS LEVEL Routine 02/28/2018 3:50 AM Results for this SEXER procedure are in the results section. MAGNESIUM LEVEL Routine 02/28/2018 3:50 AM Results for this SEXER procedure are in the results section. BASIC METABOLIC PANEL Routine 02/28/2018 3:50 AM Results for this SEXER procedure are in the results section. HC COMPLETE BLD COUNT Routine 02/28/2018 3:50 AM Results for this W/AUTO DIFF SEXER procedure are in the results section. PARTIAL THROMBOPLASTIN TIME Routine 02/28/2018 3:50 AM Results for this (PTT) SEXER procedure are in the results section. PROTHROMBIN TIME WITH INR Routine 02/28/2018 3:50 AM Results for this SEXER procedure are in the results section. POC GLUCOSE Routine 02/27/2018 9:20 PM Results for this SEXER procedure are in the results section. POC GLUCOSE Routine 02/27/2018 6:06 PM Results for this SEXER procedure are in the results section. POC GLUCOSE Routine 02/27/2018 12:08 PM Results for this SEXER procedure are in the results section. POC GLUCOSE Routine 02/27/2018 9:44 AM Results for this SEXER procedure are in the results section. POC GLUCOSE Routine 02/27/2018 8:14 AM Results for this SEXER procedure are in the results section. HC COMPLETE BLD COUNT Routine 02/27/2018 4:20 AM Results for this W/AUTO DIFF SEXER procedure are in the results section. ESTIMATED GFR Routine 02/27/2018 4:00 AM Results for this SEXER procedure are in the results section. PHOSPHORUS LEVEL Routine 02/27/2018 4:00 AM Results for this SEXER procedure are in the results section. BASIC METABOLIC PANEL Routine 02/27/2018 4:00 AM Results for this SEXER procedure are in the results section. POC GLUCOSE Routine 02/26/2018 10:28 PM Results for this SEXER procedure are in the results section. POC GLUCOSE Routine 02/26/2018 5:50 PM Results for this SEXER procedure are in the results section. POC GLUCOSE Routine 02/26/2018 2:30 PM Results for this SEXER procedure are in the results section. HEMODIALYSIS Routine 02/26/2018 2:04 PM SEXER HEPATITIS B SURFACE ANTIGEN STAT 02/26/2018 2:00 PM Results for this SEXER procedure are in the results section. US DUPLEX HEMODIALYSIS AVG STAT 02/26/2018 12:15 PM Results for this AVF ACCESS SEXER procedure are in the results section. PROTHROMBIN TIME WITH INR Routine 02/26/2018 10:20 AM Results for this SEXER procedure are in the results section. HEMOGLOBIN A1C Routine 02/26/2018 10:20 AM Results for this SEXER procedure are in the results section. XR CHEST 1 VW PORTABLE STAT 02/26/2018 9:39 AM Results for this SEXER procedure are in the results section. POC GLUCOSE Routine 02/26/2018 9:10 AM Results for this SEXER procedure are in the results section. ECG 12-LEAD STAT 02/26/2018 8:53 AM Results for this SEXER procedure are in the results section. ECHOCARDIOGRAM 2D COMPLETE STAT 02/26/2018 8:17 AM Results for this W MMODE SPECTRAL COLOR SEXER procedure are in DOPPLER ([id number]) the results section. POC GLUCOSE Routine 02/26/2018 4:57 AM Results for this SEXER procedure are in the results section. PREPARE RBC Timed 02/26/2018 1:50 AM SEXER ESTIMATED GFR STAT 02/26/2018 1:50 AM Results for this SEXER procedure are in the results section. TYPE AND SCREEN Timed 02/26/2018 1:50 AM Results for this SEXER procedure are in the results section. PROTHROMBIN TIME WITH INR STAT 02/26/2018 1:50 AM Results for this SEXER procedure are in the results section. COMPREHENSIVE METABOLIC STAT 02/26/2018 1:50 AM Results for this PANEL SEXER procedure are in the results section. HC COMPLETE BLD COUNT STAT 02/26/2018 1:50 AM Results for this W/AUTO DIFF SEXER procedure are in the results section. after 04/03/2017 Results POC glucose (03/11/2018 5:03 PM SEXER)Only the most recent of67 resultswithin the time period is included. POC glucose 236 (H) 65 - 99 mg/dL [facility] Comment: [facility] Notified RN No Action Needed Meter ID: [id number] [employer] Routeman: kP Santillan Performing Organization Address City/State/Zipcode Phone Number [facility] DEPARTMENT OF PATHOLOGY AND [address] [place] [address] GENOMIC MEDICINE [facility] [address] [place] [id number] CBC with platelet and differential (03/11/2018 1:19 PM SEXER)Only the most recent of11 resultswithin the time period is included. WBC 11.05 (H) 4.50 - 11.00 k/uL [facility] RBC 3.55 (L) 4.20 - 5.50 m/uL [facility] HGB 10.0 (L) 12.0 - 16.0 g/dL [facility] HCT 31.6 (L) 37.0 - 47.0 % [facility] MCV 89.0 82.0 - 100.0 fL [facility] MCH 28.2 27.0 - 34.0 pg [facility] MCHC 31.6 31.0 - 37.0 g/dL [facility] RDW - SD 58.7 (H) 37.0 - 55.0 fL [facility] MPV 11.9 8.8 - 13.2 fL [facility] Platelet count 246 150 - 400 k/uL [facility] Nucleated RBC 0.00 /100 WBC [facility] Neutrophils 78.5 (H) 39.0 - 69.0 % [facility] Lymphocytes 9.2 (L) 25.0 - 45.0 % [facility] Monocytes 6.8 0.0 - 10.0 % [facility] Eosinophils 4.0 0.0 - 5.0 % [facility] Basophils 0.5 0.0 - 1.0 % [facility] Immature granulocytes 1.0Comment: "Immature 0.0 - 1.0 % [facility] (promyelocytes, myelocytes, metamyelocytes) Specimen Blood Performing Organization Address City/State/Zipcode Phone Number [facility] DEPARTMENT OF PATHOLOGY AND [address] [place] [phone] GENOMIC MEDICINE [address] [address] Estimated GFR (03/11/2018 1:14 PM SEXER)Only the most recent of12 resultswithin the time period is included. Estimated GFR 11 (A) mL/min/1.73 m2 [facility] Comment: HOSPITAL CatergoryUnitsInterpretation G1 >=90 Normal or high G2 60-89Mildly decreased [id number] to moderately decreased P2k37-28Bhagnvnltu to severely decreased G4 15-29Severely decreased G5 <15Kidney failure The eGFR was calculated using the Chronic Kidney Disease Epidemiology Collaboration (CKD-EPI) equation. Interpretation is based on recommendations of the National Kidney Foundation-Kidney Disease Outcomes Quality Initiative (NKF-KDOQI) published in 2014. Specimen Plasma specimen Performing Organization Address City/[facility] Cent[facility] Phone Number [facility] DEPARTMENT OF PATHOLOGY AND [address] [place] [address] Phosphorus level (03/11/2018 1:14 PM SEXER)Only the most recent of10 resultswithin the time period is included. Phosphorus 2.8 2.4 - 4.5 mg/dL [facility] Specimen Plasma specimen Performing Organization Address [facility] Phone Number [facility] DEPARTMENT OF PATHOLOGY AND [address] [place] [address] Basic metabolic panel (03/11/2018 1:14 PM SEXER)Only the most recent of11 resultswithin the time period is included. Sodium 135 135 - 148 mEq/L [facility] Potassium 4.0 3.5 - 5.0 mEq/L [facility] Chloride 95 (L) 98 - 112 mEq/L [facility] CO2 27 24 - 31 mEq/L [facility] Anion gap 13@ANIO 7 - 15 mEq/L [facility] BUN 28 (H) 8 - 23 mg/dL [facility] Creatinine 3.75 (H) 0.50 - 0.90 mg/dL [facility] Glucose 186 (H) 65 - 99 mg/dL [facility] Calcium 9.3 8.8 - 10.2 mg/dL [facility] Specimen Plasma specimen Performing Organization Address [facility] Phone Number [facility] DEPARTMENT OF PATHOLOGY AND [address] [place] [address] Echocardiogram complete w contrast and 3D if needed (03/09/2018 9:01 AM SEXER) Narrative Performed At [facility] Echocardiography Report [address] [facility] [address], [place] [address] Pat.Name:YEYO COLLINS MPat.ID:[id number] .Date: 03/09/2018Refer.MD:SCOTT PENA MD Exam Time: 9:04:00 AMStudy Type:Routine Echo Height:63inWeight: 127lb BSA: 1.6 c5DGZWob:1935,82Y Sex: FEMALEBP:140/62 HR:86 bpmSonogrphr: Mariposa Dent [facility] Pat. Stat.:Inpatient Room: 1005 Study Status:Final Echo Event ID:[id number] Order ID:[id number] Reason for Study:Pericardial effusion History / Clinical:Congestive [...] RAPof 15 mmHg. MEASUREMENTS: 2D Parasternal [place] Ds4.5 cmAo An2.4 cm LVIDd4.1 cmIndex2.6 cm/m Ao Rtd 3 cm Index1.9 cm/m LVIDs2.4 cmLV Jhmq393.4 g(87-129) LV%fs 41.5 % LVM Fekcu720.4 g/m2 IVSd 1.3 cmRWT0.7 LVPWd1.4 cmLVOT 1.8 cm LA Sng Plane LA Area 27.5 cm2(8.8-23.4) LA Vol90.4 ml Index56.5 ml/m LA LngAx 6.9 cm DOPPLER AV For Flow/ZHENG AV pkVel 219.1 cm/s (100-170) AV AC/ET 0.3 AV mnVel 154.4 cm/Marilyn TVI44.5 cm AV pkPG 19.2 mmHgAVpkAcRt 6985.6 cm/s2 AV Mean G 11.2 mmHgAV PeEj872.3 cm/s2 AV AC 88 msec (83-118) AV [...] Radiology Results In - 03/09/2018 4:57 PM [facility] Echocardiography Report [address] [address] Pat.Name: YEYO COLLINS Pat.ID: [id number] .Date: 03/09/2018 Refer.MD: SCOTT PENA MD Exam Time: 9:04:00 AM Study Type:Routine Echo Height: 63in Weight: 127lb BSA: 1.6 m2 Age: 3 1935,82Y Sex: FEMALE BP: 140/62 HR: 86 bpm Sonogrphr: PARTHA Wallace Pat. Stat.:Inpatient Room: [facility] Study Status:Final Echo Event ID:[id number] Order ID: [id number] Reason for Study:Pericardial effusion History / Clinical:Congestive [...] of 15 mmHg. MEASUREMENTS: 2D Parasternal [place] Ds 4.5 cm Ao An 2.4 [...] Address City/State/Zipcode Phone Number [facility] [address] [place] [address] Transfuse RBC (03/08/2018 9:05 PM SEXER)Only the most recent of3 resultswithin the time period is included.IR Tunneled Dialysis Catheter Placement (03/08/2018 2:53 PM SEXER) Narrative Performed At Procedure: Placement of tunneled dialysis catheter [facility] Clinical History: End-stage renal disease Sedation: Versed and fentanyl were utilized for monitored conscious sedation during the procedure. The patient was transferred to the recovery room at the end of the procedure for further monitoring. Dngf-ji-qeku time 20 minutes Anesthesia: Local Radiation dose: [...] the right atrium under fluoroscopy. A 4 Kosovan catheter was placed. Local anesthesia was then administered from the infraclavicular region to the initial puncture site. The 28 cm Palindrome dialysis catheter was brought through the tunnel. An Amplatz guidewire was advanced through the 4 Kosovan catheter and after dilatation, the dialysis catheter [...] above. Blood Loss: Less than 5 mL [facility]-[id number] Procedure Note Interface, Radiology Results Incoming - 03/08/2018 3:04 PM SEXER Procedure: Placement of tunneled dialysis catheter Clinical History: End-stage renal disease Sedation: Versed and fentanyl were utilized for monitored conscious sedation during the procedure. The patient was transferred to the recovery room at the end of the procedure for further monitoring. Tfix-xq-tivi time 20 minutes Anesthesia: Local Radiation dose: [...] the right atrium under fluoroscopy. A 4 Kosovan catheter was placed. Local anesthesia was then administered from the infraclavicular region to the initial puncture site. The 28 cm Palindrome dialysis catheter was brought through the tunnel. An Amplatz guidewire was advanced through the 4 Kosovan catheter and after dilatation, the dialysis catheter [...] above. Blood Loss: Less than 5 mL [facility]-[id number] Performing Organization Address [facility] Phone Number [facility] [address] [place] [address] Prepare RBC, 2 Units (03/08/2018 10:58 AM SEXER) Product name Red Blood Cells [address] Unit number [id number] [facility] Product code [id number] [facility] Dispense status Transfused [facility] Blood expiration date [facility] Blood type code 6200 [facility] Blood type A POSITIVE [facility] Product name Red Blood Cells , [facility] Unit number [id number] [facility] Product code [id number] [facility] Dispense status Transfused [facility] Blood expiration date [facility] Blood type code 6200 [facility] Blood type A POSITIVE [facility] Performing Organization Address [facility]/Zipcode Phone Number [facility] DEPARTMENT OF PATHOLOGY AND [address] [place] [address] [address] Type and screen (03/08/2018 10:58 AM SEXER)Only the most recent of3 resultswithin the time period is included. ABO grouping A [facility] Rh type POS [facility] Antibody screen (gel) NEG [facility] Specimen Blood Performing Organization Address City/[facility] Centercode Phone Number [facility] DEPARTMENT OF PATHOLOGY AND [address] [place] [address] [address] Smear review (03/08/2018 4:37 AM SEXER) Platelet slide review Alex adequate [facility] Anisocytosis Moderate [facility] Polychromasia Moderate [facility] Schistocytes Occasional [facility] Ovalocytes Moderate [facility] [place] cells Moderate (A) [facility] Acanthocytes Occasional [facility] Performing Organization Address City/[facility] Phone Number [facility] DEPARTMENT OF PATHOLOGY AND [address] [place] [address] [address] Sodium level, syringe (03/07/2018 12:40 PM SEXER) Sodium, syringe 130 (L) 135 - 148 mEq/L [facility] Specimen Blood Performing Organization Address [facility] Phone Number [facility] DEPARTMENT OF PATHOLOGY AND [address] [place] [address] [address] Potassium, syringe (03/07/2018 12:40 PM SEXER) Potassium, syringe 4.6 3.5 - 5.0 mEq/L [facility] Specimen Blood Performing Organization Address City/[facility] Cent[facility]ode Phone Number [facility] DEPARTMENT OF PATHOLOGY AND [address] [place] [address] Hemoglobin, syringe (03/07/2018 12:40 PM SEXER) Hemoglobin, syringe 7.5 (L) 12.0 - 16.0 g/dL [facility] Specimen Blood Performing Organization Address [facility]/Zipcode Phone Number [facility] DEPARTMENT OF PATHOLOGY AND [address] [place] [phone] [place] [address] Glucose level, syringe (03/07/2018 12:40 PM SEXER) Glucose, syringe 132 (H) 65 - 99 mg/dL [facility] Specimen Blood Performing Organization Address [facility]ode Phone Number [facility] DEPARTMENT OF PATHOLOGY AND [address] [place] [address] C difficile toxin (03/06/2018 6:20 AM SEXER) Clostridium difficile No Clostridium difficle toxin present [facility] Comment: HOSPITAL Specimen Information Specimen Source: Stool Specimen Site: Nonpreserved Specimen Stool - Nonpreserved Performing Organization Address [facility] Phone Number [facility] DEPARTMENT OF PATHOLOGY AND [address] [place] [address] Prothrombin time with INR (03/06/2018 4:00 AM SEXER)Only the most recent of6 resultswithin the time period is included. Prothrombin time 14.2 11.5 - 14.5 sec [facility] INR 1.1 [facility] Comment: [facility] The International Normalized Ratio (INR) is a therapeutic monitoring tool for patients who are stable on oral anticoagulant therapy. An INR of 2.0-3.0 is suggested for deep vein thrombosis/pulmonary embolism. Specimen Blood Performing Organization Address [facility] Phone Number [facility] DEPARTMENT OF PATHOLOGY AND [address] [place] [address] Troponin (03/05/2018 8:00 AM SEXER)Only the most recent of4 resultswithin the time period is included. Troponin <0.30 0.00 - 0.30 ng/mL [facility] Comment: 0.30 - 1.49 ng/mlMay indicate increased risk of acute coronary syndrome. >=1.5 ng/mlConsistent with acute myocardial infarction. The diagnostic value of a single normal or non-diagnostic result is questionable.Serial samples at 2-6 hour intervals are required to rule out acute myocardial injury. Specimen Plasma specimen Performing Organization Address City/[facility] Cent[facility]ode Phone Number [facility] DEPARTMENT OF PATHOLOGY AND [address] [place] [address] [address] Magnesium level (03/05/2018 4:15 AM SEXER)Only the most recent of3 resultswithin the time period is included. Magnesium 1.7 1.6 - 2.4 mg/dL [facility] Specimen Plasma specimen Performing Organization Address [facility] Centercode Phone Number [facility] DEPARTMENT OF PATHOLOGY AND [address] [place] [address] [facility] [address] [place] [address] XR Chest 1 Vw Portable (03/04/2018 7:03 PM SEXER)Only the most recent of2 resultswithin the time period is included. Narrative Performed At EXAMINATION:XR CHEST 1 VW PORTABLE [facility] CLINICAL HISTORY:chest pain COMPARISON:02/26/2018 IMPRESSION: An [...] is unchanged. No pneumothorax. [facility]-[id number] Procedure Note Interface, Radiology Results Incoming - 03/04/2018 7:16 PM [facility] EXAMINATION: XR CHEST 1 VW PORTABLE CLINICAL [...] versus pleural thickening is unchanged. No pneumothorax. [facility]-[id number] Performing Organization Address [facility]/Zipcode Phone Number [facility] [address] [place] [address] ECG 12 lead (03/04/2018 1:48 PM SEXER)Only the most recent of2 resultswithin the time period is included. Ventricular rate 75 [facility] Atrial rate 75 [facility] IN interval 204 [facility] QRSD interval 76 [...] inversion less evident in Anterolateral leads-QT has [facility] MUSE lengthened- 5: 22:27 PM Narrative Performed At Performing Organization Address City/State/Zipcode Phone Number [facility] MUSE [address] duplex hemodialysis avg avf access (03/04/2018 9:20 AM SEXER)Only the most recent of2 resultswithin the time period is included. Narrative Performed At [facility] Vascular Ultrasound Laboratory AV Graft - Fistula Report [address]Name:YEYO COLLINS [facility].ID:[id number] .Date: 03/04/2018Refer.MD:SCOTT PENA MD Exam Time: 8:11:00 AMStudy Type:AV Graft - Fistula Height:63inWeight: 123lb BSA: 1.57 m2 DOBAge:1935,82Y Sex: FEMALESonogrphr: Aubree Villela RVT Pat. Stat.:Inpatient Room:[address] TapeVol: , CPT - 4: 11620 Echo Event ID:[id number] Order ID:[id number] Reason for Study:AV-graft without thrill and buit.History [...] BrachialProximal-third 82 cm/sec Mid-third47 cm/sec Distal-third40 cm/sec Kcqgkrwaziy80pc/sec,0cm/sec AV-GraftJaxta0 cm/sec Arterial dxyi3rm/sec Venous juxo6jm/sec Vkylmysqniw55tq/sec Axillary VeinDistal-vewid16qd/sec Subclavian Vein Mid-pgzyv03sc/sec VOLUME FLOW: Enavdpjh74 cc/min 83 cc/min PRELIMINARY FINDINGS: 1. Occluded [...] Radiology Results In - 03/04/2018 2:26 PM [facility] Vascular Ultrasound Laboratory AV Graft - Fistula Report [address] [place] [address] Pat.Name: YEYO COLLINS Pat.ID: [id number] .Date: 03/04/2018 Refer.MD: SCOTT PENA MD Exam Time: 8:11:00 AM Study Type:AV Graft - Fistula Height: 63in Weight: 123lb BSA: 1.57 m2 Age: 3 1935,82Y Sex: FEMALE Sonogrphr: Aubree Villela RVT Pat. Stat.:Inpatient Room: [address] Tape Vol: YM, CPT - 4: [address] Echo Event ID:[id number] Order ID: [id number] Reason for Study:AV-graft without thrill and buit. [...] Organization Address City/State/Zipcode Phone Number [facility] [address] [place] [address] Total iron binding capacity (03/04/2018 4:00 AM SEXER) Iron level 36 (L) 37 - 145 ug/dL [facility] Iron binding capacity 118 (L) 200 - 400 ug/dL [facility] % Saturation 30.5 15.0 - 38.0 % [facility] Specimen Plasma specimen Performing Organization Address City/[facility] Centercode Phone Number [facility] DEPARTMENT OF PATHOLOGY AND [address] [place] [phone] [place] [address] Ferritin level (03/04/2018 4:00 AM SEXER) Ferritin level 978 (H) 13 - 150 ng/mL [facility] Specimen Plasma specimen Performing Organization Address [facility] Centercode Phone Number [facility] DEPARTMENT OF PATHOLOGY AND [address] [place] [phone] [place] [address] HEMODIALYSIS CATHETER PLACEMENT (03/02/2018 8:59 PM [facility]ER) Narrative Performed At Chava Hill MD 03/03/2018 12:44 PM Hemodialysis catheter placement Date/Time: 03/02/2018 8:59 PM Performed by: Rodriguez Edwards MD Authorized by: Chava Hill MD Consent: Consent obtained:Verbal and written Consent given by:Patient Risks discussed:Arterial puncture, incorrect placement, nerve damage, infection and bleeding Alternatives discussed:Delayed treatment [place] protocol: Procedure explained and questions answered to [...] and 3D if needed (02/28/2018 9:13 AM SEXER) Narrative Performed At [facility] Echocardiography Report [address] [facility], [address]Name:YEYO COLLINS.ID:[id number] .Date: 02/28/2018 Refer.MD:SCOTT PENA MD Exam Time: 8:01:00 AMStudy Type:Routine Echo Height:63inWeight: 151lb BSA: 1.72 m2 DOBAge:1935,82Y Sex: FEMALEBP:126/62 HR:86 bpmSonogrphr: PARTHA Grant Pat. Stat.:Inpatient Room:[place] [address] Study Status:Final Echo Event ID:[id number] Order ID:[id number] Reason for Study:Periocardiocentesis History / Clinical:Congestive Heart [...] Radiology Results In - 02/28/2018 4:12 PM [facility] Echocardiography Report [address] [place] [address] Pat.Name: YEYO COLLINS Pat.ID: [id number] .Date: 02/28/2018 Refer.MD: SCOTT PENA MD Exam Time: 8:01:00 AM Study Type:Routine Echo Height: 63in Weight: 151lb BSA: 1.72 m2 Age: 3 1935,82Y Sex: FEMALE BP: 126/62 HR: 86 bpm Sonogrphr: PARTHA Grant Pat. Stat.:Inpatient Room: [place] [address] Study Status:Final Echo Event ID:[id number] Order ID: [id number] Reason for Study:Periocardiocentesis History / Clinical:Congestive Heart [...] Organization Address City/State/Zipcode Phone Number [facility] [address] [place] [address] Cv slab polisher procedure (02/28/2018 8:48 AM SEXER) Narrative Performed At S/p successful pericardiocentesis assisted with US and fluoroscopy. [facility] Micropuncture catheter used to obtain access to pericardial space and exchange for pericardial drain. Performing Organization Address City/State/Zipcode Phone Number [facility] [address] [place] [address] Cell count and differential, body fluid (02/28/2018 8:35 AM SEXER) Misc fluid type Pericardial [facility] Color, fluid Red [facility] Appearance, fluid Hazy [facility] RBC, fluid 170,000 /CMM [facility] Nucleated cells, fluid 137 /CMM [facility] Fluid mononuclear cell See Diff [facility] Neutrophils, fluid 40 % [facility] Lymphocytes, fluid 23 % [facility] Eosinophils, fluid 5 % [facility] Macrophages, fluid 32 % [facility] Specimen Fluid Narrative Performed At Pericardial fluid [facility] DEPARTMENT OF PATHOLOGY AND GENOMIC MEDICINE Performing Organization Address City/[facility]/Zipcode Phone Number [facility] DEPARTMENT OF PATHOLOGY AND [address] [place] [address] GENOMIC MEDICINE [address] [address] Protein, misc fluid (02/28/2018 8:35 AM SEXER) Fluid type Pericardial [facility] Protein, fluid 4.3 g/dL [facility] Comment: Analysis performed on Mickey 8000 analyzer. This is not an approved methodology for this specimen type;accuracy and clinical significance uncertain. Specimen Fluid Narrative Performed At Pericardial fluid [facility] DEPARTMENT OF PATHOLOGY AND GENOMIC MEDICINE Performing Organization Address City/[facility] Phone Number [facility] DEPARTMENT OF PATHOLOGY AND [address] [place] [phone] [address] LDH, misc fluid (02/28/2018 8:35 AM SEXER) Fluid type Pericardial [facility] LDH, fluid 348 U/L [facility] Comment: Analysis performed on Mickey 8000 analyzer. This is not an approved methodology for this specimen type;accuracy and clinical significance uncertain. Specimen Fluid Narrative Performed At Pericardial fluid [facility] DEPARTMENT OF PATHOLOGY AND GENOMIC MEDICINE Performing Organization Address City/State/Zipcode Phone Number [facility] DEPARTMENT OF PATHOLOGY AND [address] [place] [address] GENOMIC MEDICINE [address] [address] Glucose level, misc fluid (02/28/2018 8:35 AM SEXER) Fluid type Pericardial [facility] Glucose, fluid 126 mg/dL [facility] Comment: Analysis performed on Mickey 8000 analyzer. This is not an approved methodology for this specimen type;accuracy and clinical significance uncertain. Specimen Fluid Narrative Performed At Pericardial fluid [facility] DEPARTMENT OF PATHOLOGY AND GENOMIC MEDICINE Performing Organization Address City/State/Zipcode Phone Number [facility] DEPARTMENT OF PATHOLOGY AND [address] [place] [address] Cytology (non-gynecological) request (02/28/2018 6:32 AM SEXER) [facility] DEPARTMENT OF PATHOLOGY AND GENOMIC MEDICINE Cytology See link below for PDF [facility] DEPARTMENT OF (non-gynecological) report Lab Report PATHOLOGY AND GENOMIC MEDICINE Result status This is Final Report [facility] DEPARTMENT OF for [id number] PATHOLOGY AND GENOMIC MEDICINE Performing Organization Address City/[facility] Centercode Phone Number [facility] DEPARTMENT OF PATHOLOGY AND [address] [place] [address] Partial thromboplastin time, activated (02/28/2018 3:50 AM SEXER) PTT 35.1 23.0 - 36.0 sec [facility] Comment: PTT therapeutic range for unfractionated heparin is 61.0-112.0 seconds which corresponds to Anti-Xa 0.3-0.7 U/ml. Specimen Blood Performing Organization Address City/[facility] Phone Number [facility] DEPARTMENT OF PATHOLOGY AND [address] [place] [address] Hepatitis B surface antigen (02/26/2018 2:00 PM [facility]) Hepatitis B surface Ag Non-reactive Non-reactive [facility] Specimen Blood Performing Organization Address City/[facility]/Zipcode Phone Number [facility] DEPARTMENT OF PATHOLOGY AND [address] [place] [address] Hemoglobin A1c (02/26/2018 10:20 AM SEXER) Hemoglobin A1C 5.5 4.0 - 5.6 % [facility] Comment: HbA1c cutoffs for diagnosing diabetes: 4.0% - 5.6%=normal 5.7% - 6.4%=increased risk for diabetes (prediabetes) >=6.5%=diabetes Goals for glycemic control (ADA 2016) < 7.0%Target for non adults with diabetes. More or less stringent targets may be appropriate for individual patients. <7.5% Target for Children and adolescents with type 1 diabetes. Specimen Blood Performing Organization Address City/State/Zipcode Phone Number [facility] DEPARTMENT OF PATHOLOGY AND [address] [place] [address] GENOMIC MEDICINE [facility] [address] [place] [address] Echocardiogram complete w contrast and 3D if needed (02/26/2018 8:17 AM SEXER) Narrative Performed At [facility] Echocardiography Report [address] [facility] [address], [place] [address] Pat.Name:YEYO COLLINS.ID:[id number] .Date: 02/26/2018 Refer.MD:HERMAN FRAGA MD Exam Time: 7:27:00 AMStudy Type:Routine Echo Height:63inWeight: 151lb BSA: 1.72 m2 DOBAge:1935,82Y Sex: FEMALEBP:141/71 HR:87 bpm Sonogrphr: Laya Coffman RDCS, ISABELT Pat. Stat.:Inpatient Room:[address] Study Status:Final Echo Event ID:[id number] Order ID:[id number] Reason for Study:Pre-op clearance History / Clinical:Congestive [...] RAPof 10 mmHg. MEASUREMENTS: 2D Parasternal [place] LVOT 1.9 cmLA Ds3.9 cm LVIDd2.9 cmIndex1.7 cm/m Ao Rtd 3.1 cm Index1.8 cm/m LVIDs1.9 cmLV Khvo968.4 g(87-129) LV%fs 35.7 % LVM Btpdr021.1 g/m2 IVSd 1.6 cmRWT1.3 LVPWd1.9 cm LA Sng Plane LA Area 25.8 cm2(8.8-23.4) LA Vol84.5 ml Index49.1 ml/m LA LngAx 6.2 cm Aorta Ao Asc 3.7 cm (2.1-3.4) DOPPLER AV For Flow/ZHENG AV pkVel 227 cm/s (100-170) AV AC/ET 0.3 AV mnVel 148 cm/Marilyn TVI41.9 cm AV pkPG 20.6 mmHgAVpkAcRt 4164.3 cm/s2 AV Mean G 10.6 mmHgAV PzIg370.8 cm/s2 AV AC 83 msec (83-118) AV Area1.4 cm2(3-5) AV ET283 msec LVOT For Flow LVOT Area2.8 cm2 LVOT SV 60.5 ml AMFFwlIbj226.7 cm/sHR77.1 bpm LVOTpkPG 4.1 mmHgLVOT CO4.7 l/min LVOTmnPG 2.4 mmHgLVOT CI2.7 l/m/m2 LVOT TVI21.3 cm MV For Flow/Valve Assess MV Dec T 859 msecMV Mean G3.9 mmHg MV pkVel 172.7 cm/sMV TVI33.2 cm MV pkPG 11.9 mmHg Signed 02/26/2018 02:41 PM Marilee King M.D. Procedure Note Interface, Radiology Results In - 02/26/2018 2:41 PM [facility] Echocardiography Report [address] [place] [address] Pat.Name: YEYO COLLINS Pat.ID: [id number] .Date: 02/26/2018 Refer.MD: HERMAN FRAGA MD Exam Time: 7:27:00 AM Study Type:Routine Echo Height: 63in Weight: 151lb BSA: 1.72 m2 Age: 4 1935,82Y Sex: FEMALE BP: 141/71 HR: 87 bpm Sonogrphr: Laya Coffman RDCS, ISABELT Pat. Stat.:Inpatient Room: [facility] Study Status:Final Echo Event ID:[id number] Order ID: [id number] Reason for Study:Pre-op clearance History / Clinical:Congestive [...] of 10 mmHg. MEASUREMENTS: 2D Parasternal [place] LVOT 1.9 cm LA Ds 3.9 cm [...] Address City/State/Zipcode Phone Number [facility] [address] [place] [address] Comprehensive metabolic panel (02/26/2018 1:50 AM SEXER) Sodium 138 135 - 148 mEq/L [facility] Potassium 3.5 3.5 - 5.0 mEq/L [facility] Chloride 100 98 - 112 mEq/L [facility] CO2 26 24 - 31 mEq/L [facility] Anion gap 12@ANIO 7 - 15 mEq/L [facility] BUN 12 8 - 23 mg/dL [facility] Creatinine 3.07 (H) 0.50 - 0.90 mg/dL [facility] Glucose 110 (H) 65 - 99 mg/dL [facility] Calcium 9.5 8.8 - 10.2 mg/dL [facility] Protein 6.6 6.3 - 8.3 g/dL [facility] Comment: [facility] [place] 4.6-7.0 g/dL 1 week 4.4-7.6 g/dL 7 months-1year5.1-7.3 g/dL 1-2 years5.6-7.5 g/dL >3 years6.0-8.0 g/dL 18-150 6.3-8.3 g/dL Albumin 2.7 (L) 3.5 - 5.0 g/dL [facility] A/G ratio 0.7 0.7 - 3.8 [facility] Alkaline phosphatase 64 35 - 104 U/L [facility] AST 20 10 - 35 U/L [facility] ALT 8 5 - 50 U/L [facility] Total bilirubin 0.4 0.0 - 1.2 mg/dL [facility] Specimen Plasma specimen Performing Organization Address City/State/Zipcode Phone Number [facility] DEPARTMENT OF PATHOLOGY AND [address] [place] [address] GENOMIC MEDICINE [facility] [address] [place] [address] after 04/03/2017 Insurance Payer Benefit Plan / Group Subscriber ID Type Phone Address MEDICARE MEDICARE PART A AND B xxxxxxxxxx Medicare [place], [place] Advance Directives Patient has advance care planning documents on file. For more information, please contact:[address] [id number]
--- OUTSIDE RECORDS SUMMARY | 2018-04-04 11:28 | XMS REPORT | Clinical Summary ---
:1935 Author Organization [facility] Address [address] [place] [address] Care Team Providers Name Role Phone Anastacio Riggins Unavailable Allergies Active Allergy Reactions Severity Noted Date Comments Ramipril 03/23/2018 Codeine Rash Low 10/30/2016 Other reaction(s): vomiting rash Hydrocodone Low 10/30/2016 Other reaction(s): vomiting rash Feels like "drunk" Morphine Itching 10/30/2016 Other reaction(s): Itching/Hives/Rash Clopidogrel 03/23/2018 Propoxyphene Napsylate 06/27/2017 Other reaction(s): Hives/Rash Medications Medication Sig Dispensed Refills Start End Date Status Date atorvastatin Take 40 mg by 0 Active (LIPITOR) 40 MG mouth daily. tablet FA-vit Take by mouth. 0 Active Bcomp&A-ziolpjnc-e inc 3-70-15 mg-mcg-mg Tab citalopram Take 20 mg by 0 Active (CELEXA) 20 MG mouth 2 (two) tablet times daily with breakfast and dinner. darbepoetin Inject 40 mcg 0 Active tang-polysorbate subcutaneously (ARANESP) 40 every 7 days. mcg/0.4 mL Syrg injection gabapentin Take 300 mg by 0 Active (NEURONTIN) 300 MG mouth 3 (three) capsule times daily. insulin lispro Inject 0 Active (HUMALOG) 100 subcutaneously 3 unit/mL injection (three) times daily before meals. latanoprost 1 drop nightly. 0 Active (XALATAN) 0.005 % ophthalmic solution lisinopril Take 20 mg by 0 Active (PRINIVIL,ZESTRIL) mouth daily. 20 MG tablet nystatin Apply topically 2 0 Active (MYCOSTATIN) (two) times daily. 100,000 unit/gram cream aspirin 81 MG EC Take 1 tablet (81 90 tablet 3 03/30/19 Active tablet mg total) by mouth 9 20 daily. loperamide Take 1 capsule (2 30 capsule 0 04/08/19 Active (IMODIUM) 2 mg mg total) by mouth 9 19 capsule 4 (four) times daily as needed for Diarrhea for up to 10 days. metoprolol Take 1 tablet (25 180 tablet 3 03/29/19 Active (TOPROL-XL) 25 MG mg total) by mouth 9 20 24 hr tablet 2 (two) times daily. nitroglycerin Put 1 pill under 90 tablet 0 03/29/19 Active (NITROSTAT) 0.4 MG tongue every 5min 9 20 SL tablet as needed for chest pain. Max 3 doses in 15min.Call 911 if pain unrelieved 5min after 1st dose. ondansetron Take 1 tablet (4 20 tablet 0 04/05/19 Active (ZOFRAN-ODT) 4 MG mg total) by mouth 9 19 disintegrating every 8 (eight) tablet hours as needed for up to 7 days. ticagrelor Take 1 tablet (90 180 tablet 3 Active (BRILINTA) 90 mg mg total) by mouth 9 Tab tablet 2 (two) times daily. traMADol (ULTRAM) Take 1 tablet (50 30 tablet 0 04/08/19 Active 50 mg tablet mg total) by mouth 9 19 every 6 (six) hours as needed for up to 10 days. Max Daily Amount: 200 mg carvedilol (COREG) Take 3.125 mg by 0 03/29/19 Discontinued 3.125 MG tablet mouth 2 (two) 19 times daily with breakfast and dinner. Active Problems Problem Noted Date NSTEMI (non-ST elevated myocardial infarction) 03/24/2018 ESRD (end stage renal disease) on dialysis Encounters Date Type Specialty Care Team Description 03/24/2018 Orders Only General Internal Medicine 03/23/2018 - Hospital Encounter Cardiology Marley Lambert ST elevation ( STEMI) myocardial infarction involving other coronary artery of inferior wall ( HCC) (Primary Dx); 03/29/2018 MD Lucina ESRD (end stage renal disease) on dialysis (HCC) Jerman Perera MD 03/23/2018 Surgery Marley Lambert & EVELIN Verdugo MD 03/23/2018 Travel after 04/03/2017 Social History Tobacco Use Types Packs/Day Years Used Date Never Smoker Alcohol Use Drinks/Week oz/Week Comments No Alcohol Habits Answer Date Recorded How often do you have a drink containing alcohol? Never 03/23/2018 How many drinks containing alcohol do you have on a typical Not asked day when you are drinking? How often do you have six or more drinks on one occasion? Not asked Sex Assigned at Date Recorded Not on file Job Start Date Occupation Industry Not on file Not on file Not on file Travel History Travel Start Travel End No recent travel history available. Last Filed Vital Signs Vital Sign Reading Time Taken Blood Pressure 167/72 03/29/2018 11:31 AM BALLISTICS TESTER Pulse 65 03/29/2018 11:31 AM BALLISTICS TESTER Temperature 36.8 C (98.3 F) 03/29/2018 11:31 AM BALLISTICS TESTER Respiratory Rate 18 03/29/2018 11:31 AM BALLISTICS TESTER Oxygen Saturation 100% 03/29/2018 11:31 AM BALLISTICS TESTER Inhaled Oxygen Concentration 21% 03/25/2018 10:36 PM BALLISTICS TESTER Weight 59.4 kg (130 lb 15.3 oz) 03/26/2018 9:55 AM BALLISTICS TESTER Height 162 cm (5' 3.78") 03/23/2018 5:16 PM BALLISTICS TESTER Body Mass Index 22.63 03/26/2018 9:55 AM BALLISTICS TESTER Plan of Treatment Not on file Procedures Procedure Name Priority Date/Time Associated Diagnosis Comments POCT-GLUCOSE METER Routine 03/29/2018 12:48 PM Results for this BALLISTICS TESTER procedure are in the results section. POCT-GLUCOSE METER Routine 03/29/2018 7:48 AM Results for this BALLISTICS TESTER procedure are in the results section. ECG 12-LEAD Routine 03/29/2018 7:20 AM BALLISTICS TESTER Procedure Note - Interface, External Ris In - 03/29/2018 5:44 PM BALLISTICS TESTER Ventricular Rate 65 BPM Atrial Rate 65 BPM P-R Interval 222 ms QRS Duration 78 ms Q-T Interval 430 ms QTC Calculation(Bazett) 447 ms P Dermott 95 degrees R [place]ott -24 degrees [place] 144 degrees Sinus rhythm with 1st degree A-V block Inferior infarct (cited on or before 24-MAR-2018) Anterior infarct (cited on or before 24-MAR-2018) ST & T wave abnormality, consider lateral ischemia Abnormal ECG When compared with ECG of 29-MAR-2018 07:19, No significant change was found ECG 12-LEAD STAT 03/29/2018 7:20 AM BALLISTICS TESTER ECG 12-LEAD Routine 03/29/2018 7:19 AM BALLISTICS TESTER Procedure Note - Interface, External Ris In - 03/29/2018 5:44 PM BALLISTICS TESTER Ventricular Rate 65 BPM Atrial Rate 65 BPM P-R Interval 220 ms QRS Duration 84 ms Q-T Interval 428 ms QTC Calculation(Bazett) 445 ms P [place] 85 degrees R [place]ott -20 degrees [place] 141 degrees Sinus rhythm with 1st degree A-V block Inferior infarct (cited on or before 24-MAR-2018) Anterior infarct (cited on or before 24-MAR-2018) T wave abnormality, consider lateral ischemia ACUTE NH / STEMI Consider right ventricular involvement in acute inferior infarct Abnormal ECG When compared with ECG of 28-MAR-2018 06:45, No significant change was found ECG 12-LEAD Routine 03/29/2018 7:19 AM BALLISTICS TESTER MAGNESIUM Routine 03/29/2018 7:10 AM BALLISTICS TESTER BASIC METABOLIC PANEL (7) Routine 03/29/2018 7:10 AM BALLISTICS TESTER CBC (HEMOGRAM ONLY) Routine 03/29/2018 7:10 AM BALLISTICS TESTER POCT-GLUCOSE METER Routine 03/28/2018 10:48 PM BALLISTICS TESTER POCT-GLUCOSE METER Routine 03/28/2018 6:52 PM BALLISTICS TESTER POCT-GLUCOSE METER Routine 03/28/2018 3:32 PM BALLISTICS TESTER POCT-GLUCOSE METER Routine 03/28/2018 2:03 PM BALLISTICS TESTER C. DIFFICILE GDH TOXIN Routine 03/28/2018 10:26 AM BALLISTICS TESTER POCT-GLUCOSE METER Routine 03/28/2018 10:12 AM BALLISTICS TESTER ECG 12-LEAD Routine 03/28/2018 6:45 AM BALLISTICS TESTER Procedure Note - Interface, External Ris In - 03/28/2018 10:27 AM BALLISTICS TESTER Ventricular Rate 66 BPM Atrial Rate 66 BPM P-R Interval 224 ms QRS Duration 84 ms Q-T Interval 406 ms QTC Calculation(Bazett) 425 ms P Dermott -4 degrees R [place]ott 3 degrees T [place] 140 degrees Sinus rhythm with 1st degree A-V block Inferior infarct (cited on or before 24-MAR-2018) Cannot rule out Anterior infarct , age undetermined ST & T wave abnormality, consider lateral ischemia Abnormal ECG When compared with ECG of 27-MAR-2018 06:56, No significant change was found ECG 12-LEAD Routine 03/28/2018 6:45 AM BALLISTICS TESTER MAGNESIUM Routine 03/28/2018 4:46 AM BALLISTICS TESTER BASIC METABOLIC PANEL (7) Routine 03/28/2018 4:46 AM BALLISTICS TESTER CBC (HEMOGRAM ONLY) Routine 03/28/2018 4:46 AM BALLISTICS TESTER POCT-GLUCOSE METER Routine 03/27/2018 9:10 PM BALLISTICS TESTER POCT-GLUCOSE METER Routine 03/27/2018 5:37 PM BALLISTICS TESTER POCT-GLUCOSE METER Routine 03/27/2018 1:19 PM BALLISTICS TESTER POCT-GLUCOSE METER Routine 03/27/2018 9:55 AM BALLISTICS TESTER IR AV SHUNT/FISTULAGRAM Routine 03/27/2018 9:30 AM BALLISTICS TESTER ECG 12-LEAD Routine 03/27/2018 6:56 AM BALLISTICS TESTER Procedure Note - Interface, External Ris In - 03/27/2018 7:04 AM BALLISTICS TESTER Ventricular Rate 64 BPM Atrial Rate 64 BPM P-R Interval 230 ms QRS Duration 82 ms Q-T Interval 430 ms QTC Calculation(Bazett) 443 ms P [place]ott 95 degrees R [place]ermott -18 degrees T [place] 137 degrees Sinus rhythm with 1st degree A-V block Inferior infarct (cited on or before 24-MAR-2018) ST & T wave abnormality, consider lateral ischemia Abnormal ECG When compared with ECG of 25-MAR-2018 10:48, No significant change was found ECG 12-LEAD Routine 03/27/2018 6:56 AM BALLISTICS TESTER MAGNESIUM Routine 03/27/2018 5:50 AM BALLISTICS TESTER BASIC METABOLIC PANEL (7) Routine 03/27/2018 5:50 AM BALLISTICS TESTER CBC (HEMOGRAM ONLY) Routine 03/27/2018 5:50 AM BALLISTICS TESTER POCT-GLUCOSE METER Routine 03/26/2018 10:12 PM BALLISTICS TESTER POCT-GLUCOSE METER Routine 03/26/2018 5:43 PM BALLISTICS TESTER PHOSPHORUS Routine 03/26/2018 2:55 PM BALLISTICS TESTER POCT-GLUCOSE METER Routine 03/26/2018 2:53 PM BALLISTICS TESTER HEMODIALYSIS INPATIENT Routine 03/26/2018 2:00 PM BALLISTICS TESTER HEPATITIS B SURFACE ANTIGEN Routine 03/26/2018 9:58 AM BALLISTICS TESTER POCT-GLUCOSE METER Routine 03/26/2018 9:03 AM BALLISTICS TESTER MAGNESIUM Routine 03/26/2018 4:36 AM BALLISTICS TESTER BASIC METABOLIC PANEL (7) Routine 03/26/2018 4:36 AM BALLISTICS TESTER CBC (HEMOGRAM ONLY) Routine 03/26/2018 4:36 AM BALLISTICS TESTER PROTHROMBIN TIME/INR Routine 03/26/2018 4:36 AM BALLISTICS TESTER APTT Routine 03/26/2018 1:03 AM BALLISTICS TESTER POCT-GLUCOSE METER Routine 03/25/2018 8:48 PM BALLISTICS TESTER APTT Routine 03/25/2018 6:11 PM BALLISTICS TESTER POCT-GLUCOSE METER Routine 03/25/2018 5:18 PM BALLISTICS TESTER POCT-GLUCOSE METER Routine 03/25/2018 12:04 PM BALLISTICS TESTER APTT Routine 03/25/2018 11:42 AM BALLISTICS TESTER ECG 12-LEAD Routine 03/25/2018 10:48 AM BALLISTICS TESTER Procedure Note - Interface, External Ris In - 03/25/2018 11:00 AM BALLISTICS TESTER Ventricular Rate 62 BPM Atrial Rate 62 BPM P-R Interval 224 ms QRS Duration 82 ms Q-T Interval 428 ms QTC Calculation(Bazett) 434 ms P [place] 93 degrees R [place]ott -5 degrees T [place] 134 degrees Sinus rhythm with 1st degree A-V block Inferior infarct , possibly acute T wave abnormality, consider lateral ischemia ACUTE NH / STEMI Consider right ventricular involvement in acute inferior infarct Abnormal ECG ECG 12-LEAD STAT 03/25/2018 10:48 AM BALLISTICS TESTER ECHOCARDIOGRAM REPORT - SCAN 03/25/2018 9:51 AM BALLISTICS TESTER POCT-GLUCOSE METER Routine 03/25/2018 8:02 AM BALLISTICS TESTER APTT Routine 03/25/2018 4:20 AM BALLISTICS TESTER IRON, TIBC, % SAT. (WITHOUT Routine 03/25/2018 4:20 AM BALLISTICS TESTER Results for this FERRITIN) procedure are in the results section. MAGNESIUM Routine 03/25/2018 4:20 AM BALLISTICS TESTER BASIC METABOLIC PANEL (7) Routine 03/25/2018 4:20 AM BALLISTICS TESTER CBC (HEMOGRAM ONLY) Routine 03/25/2018 4:20 AM BALLISTICS TESTER PROTHROMBIN TIME/INR Routine 03/25/2018 4:20 AM BALLISTICS TESTER APTT Routine 03/24/2018 10:35 PM BALLISTICS TESTER POCT-GLUCOSE METER Routine 03/24/2018 9:32 PM BALLISTICS TESTER POCT-GLUCOSE METER Routine 03/24/2018 5:41 PM BALLISTICS TESTER 2D ECHO W/ DOPPLER Routine 03/24/2018 5:33 PM BALLISTICS TESTER Results for this (CW/PW/COLOR) procedure are in the results section. APTT Routine 03/24/2018 12:47 PM BALLISTICS TESTER POCT-GLUCOSE METER Routine 03/24/2018 12:44 PM BALLISTICS TESTER ECG 12-LEAD Routine 03/24/2018 8:54 AM BALLISTICS TESTER Procedure Note - Interface, External Ris In - 03/24/2018 8:57 AM BALLISTICS TESTER Ventricular Rate 69 BPM Atrial Rate 69 BPM P-R Interval 238 ms QRS Duration 76 ms Q-T Interval 402 ms QTC Calculation(Bazett) 430 ms P Dermott -11 degrees R Dermott -3 degrees T [place] 134 degrees Sinus rhythm with 1st degree A-V block Inferior infarct , age undetermined Possible Anterolateral infarct , age undetermined Abnormal ECG ECG 12-LEAD Routine 03/24/2018 8:54 AM Results for this BALLISTICS TESTER procedure are in the results section. POCT-GLUCOSE METER Routine 03/24/2018 7:31 AM Results for this BALLISTICS TESTER procedure are in the results section. CBC W/PLT COUNT & AUTO Routine 03/24/2018 5:11 AM Results for this DIFFERENTIAL BALLISTICS TESTER procedure are in the results section. APTT Routine 03/24/2018 5:11 AM Results for this BALLISTICS TESTER procedure are in the results section. PROTHROMBIN TIME/INR Routine 03/24/2018 5:11 AM Results for this BALLISTICS TESTER procedure are in the results section. CBC W/PLT COUNT & AUTO Routine 03/24/2018 5:11 AM Results for this DIFFERENTIAL BALLISTICS TESTER procedure are in the results section. PHOSPHORUS Routine 03/24/2018 5:11 AM Results for this BALLISTICS TESTER procedure are in the results section. MAGNESIUM Routine 03/24/2018 5:11 AM Results for this BALLISTICS TESTER procedure are in the results section. COMPREHENSIVE Routine 03/24/2018 5:11 AM Results for this METABOLIC PANEL BALLISTICS TESTER procedure are in the results section. CBC (HEMOGRAM ONLY) Routine 03/24/2018 5:11 AM Results for this BALLISTICS TESTER procedure are in the results section. POCT-GLUCOSE METER Routine 03/23/2018 10:37 PM Results for this BALLISTICS TESTER procedure are in the results section. APTT Routine 03/23/2018 8:43 PM Results for this BALLISTICS TESTER procedure are in the results section. PLATELET COUNT Routine 03/23/2018 8:43 PM Results for this BALLISTICS TESTER procedure are in the results section. LIPID PANEL Routine 03/23/2018 8:43 PM Results for this BALLISTICS TESTER procedure are in the results section. B-TYPE NATRIURETIC Routine 03/23/2018 8:43 PM Results for this FACTOR (BNP) BALLISTICS TESTER procedure are in the results section. TROPONIN I Routine 03/23/2018 8:43 PM Results for this BALLISTICS TESTER procedure are in the results section. L CATH & PCI 03/23/2018 5:[address] elevation BALLISTICS TESTER myocardial infarction (STEMI), unspecified artery (HCC) after 04/03/2017 Results POC-Glucose meter (03/29/2018 12:48 PM BALLISTICS TESTER)Only the most recent of24 resultswithin the time period is included. POC-Glucose Meter 148 (H)Comment: TESTED AT 70 - 110 mg/dL [facility] [address], [place] [address] Specimen Blood Performing Organization Address City/State/Zipcode Phone Number [address] [address] [phone] CENTER ECG 12 lead (03/29/2018 7:20 AM BALLISTICS TESTER)Only the most recent of6 resultswithin the time period is included. Narrative Performed At Ventricular Rate 65 BPM GE MUSE Atrial Rate 65 BPM P-R Interval 222 ms QRS Duration 78 ms Q-T Interval 430 ms QTC Calculation(Bazett) 447 ms P [place]ott 95 degrees R [place]ermott -24 degrees T [place] 144 degrees Sinus rhythm with 1st degree A-V block Inferior infarct (cited on or before 24-MAR-2018) Anterior infarct (cited on or before 24-MAR-2018) ST & T wave abnormality, consider lateral ischemia Abnormal ECG When compared with ECG of 29-MAR-2018 07:19, No significant change was found Confirmed by MD SON MAJID ([id number]) on 03/30/2018 11:47:27 AM Procedure Note Interface, External Ris In - 03/30/2018 11:47 AM BALLISTICS TESTER Ventricular Rate 65 BPM Atrial Rate 65 BPM P-R Interval 222 ms QRS Duration 78 ms Q-T Interval 430 ms QTC Calculation(Bazett) 447 ms P [place] 95 degrees R [place]ermott -24 degrees T [place] 144 degrees Sinus rhythm with 1st degree A-V block Inferior infarct (cited on or before 24-MAR-2018) Anterior infarct (cited on or before 24-MAR-2018) ST & T wave abnormality, consider lateral ischemia Abnormal ECG When compared with ECG of 29-MAR-2018 07:19, No significant change was found Confirmed by MD SON MAJID ([id number]) on 03/30/2018 11:47:27 AM Performing Organization Address City/[facility] Phone Number GE MUSE CBC (Hemogram only) (03/29/2018 7:10 AM BALLISTICS TESTER)Only the most recent of6 resultswithin the time period is included. WBC 11.9 (H) 3.5 - 10.5 K/L [facility] RBC 3.64 (L) 3.93 - 5.22 M/L [facility] Hemoglobin 10.3 (L) 11.2 - 15.7 GM/DL [facility] Hematocrit 32.7 (L) 34.1 - 44.9 % [facility] MCV 89.8 79.4 - 94.8 fL [facility] MCH 28.3 25.6 - 32.2 pg [facility] MCHC 31.5 (L) 32.2 - 35.5 GM/DL [facility] RDW 17.7 (H) 11.7 - 14.4 % [facility] Platelets 359 150 - 450 K/CU MM [facility] MPV 10.1 9.4 - 12.3 fL [facility] nRBC 0 0 - 0 /100 WBC [facility] Specimen Blood Performing Organization Address [facility] Center[facility]ar Phone Number [facility] [address] [place] [phone] CENTER Magnesium (03/29/2018 7:10 AM BALLISTICS TESTER)Only the most recent of6 resultswithin the time period is included. Magnesium 1.8 1.6 - 2.6 mg/dL [facility] Specimen Blood Narrative Performed At Please draw today if not done already. [facility] Performing Organization Address [facility] Centercode Phone Number [place] [phone] [place] [address] [place] Basic metabolic panel (03/29/2018 7:10 AM BALLISTICS TESTER)Only the most recent of5 resultswithin the time period is included. Sodium 135 (L) 136 - 145 meq/L [facility] Potassium 4.0 3.5 - 5.1 meq/L [facility] Chloride 103 98 - 107 meq/L [facility] CO2 24 22 - 29 meq/L [facility] BUN 23 (H) 7 - 21 mg/dL [facility] Creatinine 2.91 (H) 0.57 - 1.25 mg/dL [facility] Glucose 108 (H) 70 - 105 mg/dL [facility] Calcium 9.1 8.4 - 10.2 mg/dL [facility] EGFR 16Comment: ESTIMATED GFR IS mL/min/1.73 sq m [facility] NOT ACCURATE CREATININE [facility] CLEARANCE IN PREDICTING GLOMERULAR FILTRATION RATE. ESTIMATED GFR IS NOT APPLICABLE FOR DIALYSIS PATIENTS. Specimen Blood Narrative Performed At Please draw today if not done already. [facility] Performing Organization Address City/State/[facility] Phone Number [facility] [address] [place] [address] [phone] [place] Clostridium difficile GDH Toxin (03/28/2018 10:26 AM BALLISTICS TESTER) C. Difficle Toxin Negative Negative [facility] C. Difficile G[facility] Antigen NegativeComment: No Negative [facility] indication of Clostridium [facility] difficile infection and no colonization. Discontinue enteric isolation and therapy. Specimen Stool - Rectum Narrative Performed At Testing performed by Alere Rapid Cassette [facility] Assay.For GDH, published sensitivity of the assay is 98.7% compared to cytotoxicity testing.For Toxin AB, published sensitivity is 87.8% and specificity 99.4% compared to cytotoxicity testing. Verification of kit performance was done by the [facility] Microbiology Lab prior to clinical use. Performing Organization Address City/State/Zipcode Phone Number [facility] [address] [place] [address] CENTER IR AV Shunt/Fistulagram (03/27/2018 9:30 AM BALLISTICS TESTER) Narrative Performed At FINAL REPORT [facility] Procedure: Attempted declotting of left upper arm clotted AV dialysis graft, 03/27/2018 HISTORY: Clotted graft x3 weeks Anesthesia: 2% lidocaine Sedation: 0.5 mg Versed, 25 mcg fentanylmoderate conscious sedation monitored by the registered nurse. Sedation time: 15 minutes Modality: Fluoroscopy, fluoroscopy time: 2.5 minutes, total dose: 0.9 mGy, reference air kerma method TECHNIQUE: After obtaining written informed consent this procedure was performed using all elements maximal sterile barrier technique. The proximal portion of the AV graft was accessed percutaneously and a guidewire was advanced. An obstruction was encountered as the graft crosses the humerus and the upper arm. Three different types of guidewires were utilized in attempt to traverse the obstruction, but without success. The catheter was removed. CONCLUSION: Unsuccessful attempted declotting the left arm AV dialysis graft. Signed: Shaun Jorge MD Report Verified Date/Time:03/27/2018 16:13:07 Reading Location: [place] [address] Angio Body Reading Room Procedure Note Interface, External Ris In - 03/27/2018 4:15 PM BALLISTICS TESTER FINAL REPORT Procedure: Attempted declotting of left upper arm clotted AV dialysis graft, 03/27/2018 HISTORY: Clotted graft x3 weeks Anesthesia: 2% lidocaine Sedation: 0.5 mg Versed, 25 mcg fentanyl moderate conscious sedation monitored by the registered nurse. Sedation time: 15 minutes Modality: Fluoroscopy, fluoroscopy time: 2.5 minutes, total dose: 0.9 mGy, reference air kerma method TECHNIQUE: After obtaining written informed consent this procedure was performed using all elements maximal sterile barrier technique. The proximal portion of the AV graft was accessed percutaneously and a guidewire was advanced. An obstruction was encountered as the graft crosses the humerus and the upper arm. Three different types of guidewires were utilized in attempt to traverse the obstruction, but without success. The catheter was removed. CONCLUSION: Unsuccessful attempted declotting the left arm AV dialysis graft. Signed: Shaun Jorge MD Report Verified Date/Time: 03/27/2018 16:13:07 Reading Location: [facility] P048 Angio Body Reading Room Performing Organization Address City/State/Zipcode Phone Number GE RIS Phosphorus (03/26/2018 2:55 PM BALLISTICS TESTER)Only the most recent of2 resultswithin the time period is included. Phosphorus 2.0 (L) 2.3 - 4.7 mg/dL [facility] Specimen Blood - Arm, Right Performing Organization Address [facility]co[facility] [place] [address] CENTER HEMODIALYSIS INPATIENT (03/26/2018 2:00 PM BALLISTICS TESTER) Narrative Performed At Zina Strange RN 03/26/20187:25 PM HD duration 4 hoursUF 2 L. Procedure tolerated well. Vital signs stable. Lab Results Component Value Date WBC 12.0 (H) 03/26/2018 HGB 10.0 (L) 03/26/2018 HCT 31.6 (L) 03/26/2018 MCV 89.5 03/26/2018 PLT 401 03/26/2018 Lab Results Component Value Date GLUCOSE 119 (H) 03/26/2018 CALCIUM 9.2 03/26/2018 NA 125 (L) 03/26/2018 K 4.2 03/26/2018 CO2 19 (L) 03/26/2018 CL 93 (L) 03/26/2018 BUN 75 (H) 03/26/2018 CREATININE 5.98 (H) 03/26/2018 No components found for: HEPSAG Vitals: 03/26/18 1445 BP: 111/52 Pulse: 84 Resp: 16 Temp: SpO2: 97% Hepatitis B surface antigen (03/26/2018 9:58 AM BALLISTICS TESTER) hepatitis B Surface Ag NON-REACTIVE Nonreactive [facility] Specimen Blood Performing Organization Address City/[facility] Centercode Phone Number [place] [phone] [place] Prothrombin time/INR (03/26/2018 4:36 AM BALLISTICS TESTER)Only the most recent of3 resultswithin the time period is included. Protime 14.8 (H) 11.7 - 14.7 seconds [facility] INR 1.2 <=5.9 [facility] Specimen Blood Narrative Performed At RECOMMENDED COUMADIN/WARFARIN INR THERAPY [facility] RANGES STANDARD DOSE: 2.0 - 3.0 Includes: PROPHYLAXIS for venous thrombosis, systemic embolization; TREATMENT for venous thrombosis and/or pulmonary embolus. HIGH RISK: Target INR is 2.5-3.5 for patients with mechanical heart valves. Performing Organization Address City/[facility] [facility] [place] [address] [place] aPTT (03/26/2018 1:03 AM BALLISTICS TESTER)Only the most recent of8 resultswithin the time period is included. PTT 60.2 (H) 22.5 - 36.0 seconds [facility] Specimen Blood Performing Organization Address [facility] Phone Number [address] [address] [place] ECHOCARDIOGRAM REPORT - SCAN (03/25/2018 9:51 AM BALLISTICS TESTER) Narrative Performed At Iron, TIBC, % sat. (without ferritin) (03/25/2018 4:20 AM BALLISTICS TESTER) Iron 29.0 (L) 40.0 - 160.0 ug/dL [facility] TIBC 123 (L) 250 - 450 ug/dL [facility] Iron % Saturation 24 20 - 55 % [facility] Specimen Blood - Arm, Right Performing Organization Address [facility] Phone Number [address] [address] [place] Transthoracic 2D echo w/ doppler (cw/pw/color) (03/24/2018 5:33 PM BALLISTICS TESTER) Ejection Fraction [facility] ECHO [facility]ART[facility] Technologies[facility] Narrative Performed At Transthoracic Echocardiography Report (TTE) [facility] ECHO HEARTLAB [employer] [facility] Demographics Patient Name Nikolay COLLINS of Study 03/24/2018 OPAL [id number] GenderFemale Visit Number [id number] Unknown [id number] Room Number 6214 Number Date of Birth1935Referring Physician Age82 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 Clinical History Congestive Heart Failure CKD Coronary Artery Disease Diabetes Hypertension HGB 9.9 HCT 31.7 % Height: 63 inches Weight: 67.59 kg (149 lbs) BSA: 1.71 m^2 BMI: 26.39 kg/m^2 HR: 64 bpm BP: 107/48 mmHg Summary The LV endocardium is well visualized. The LV endocardium is well visualized. The left ventricle is chamber size (by PSLAX dimension) is normal (female - LVIDd 3.8-5.2cm) . Sigmoid septum with discrete basal septal hypertrophy is present. All of the LV segments contract normally . LVEF by Perry's method of disk assessment is normal (>60%) . Degree of diastolic dysfunction (LAP assessment) is inconclusive due to mitral annular calcification . Tqjw-im-rtoudsom aortic stenosis. Estimated peak systolic PA pressure is 30-35 mmHg . A trivial pericardial effusion is present . Signature Findings Left Ventricle The LV endocardium is well visualized. Th e left ventricle is chamber size (by PSLAX di mension) is normal (female - LVIDd 3.8-5.2cm) . Si gmoid septum with discrete basal septal hy pertrophy is present. Al l of the LV segments contract normally . LV EF by Perry's method of disk assessment is no rmal (>60%) . De gree of diastolic dysfunction (LAP assessment) is in conclusive due to mitral annular calcification . Left AtriumLA size is severely enlarged (>48 ml/m2) . Right VentricleRV chamber size is normal . Gl obal RV systolic function is low normal . RV pacing wire is visualized . Right Atrium RA size is normal. RA pacing wire is visualized . Aortic Valve Mild AoV cusp thickening. Ao V cusp mobility is mildly decreased . Ao V thickening primarily involves the right- and le ft- coronary cups(s). Mi pj-fh-nsdomxaw aortic stenosis. Ao V area at rest by continuity equation is in the ra nge of 1.06 cm2. Ao V area by planimtery is in the range of 1.6 cm2. Ao V resting dimensionless obstructive index (DOI) 0. 4. Mi ld aortic regurgitation. Mitral Valve Moderate mitral annular calcification. Mi ld mitral regurgitation. Mo derate calcification of both anterior and po sterior leaflet(s) of mitral valve. MV gradients are mildly increased in part due to mi tral annular calcification . Tricuspid ValveMild tricuspid regurgitation. Es timated peak systolic PA pressure is 30-35 mmHg . Pulmonic Valve Normal PV structure and function. No evidence of pulmonary regurgitation. AortaAortic root size (SInus of Valsalva diameter) is no rmal . PericardiumA trivial pericardial effusion is present . IVC/SVC/PA/PV/PleuralThe estimated RA pressure by IVC dynamics 5-10mmHg . Chambers/Structures Left Atrium LA Dimension: 4.14 cmLA Area: 21.41 cm^2 LA Volume: 94.87 ml LA Vol. Index: 55 ml/m^2 Left Ventricle LVIDd: 4.24 cm LV Septum Diastolic: 1.05 cm LV PW Diastolic: 0.86 cm LVEDV Perry's:41.15 ml LVESV Perry's:15.37 ml LVEF Perry's: 62.6 %LVEDV I: 24 ml/m^2 LVESVI: 9 ml/m^2 LVOT Diameter: 1.77 cm Right Atrium RA Vol. (Sngl Plane): 25.54 ml Right Ventricle RV Diast Dim.: 3.14 cm TAPS E: 1.37 cm Aorta Ao Root S of Angela.: 2.78 cm Doppler/Quantitative Measurements Mitral Valve MV Peak E-Wave: 1.39 m/sMV Peak A-Wave: 1.2 m/s E/A Ratio: 1.16 Mean Velocity: 0.88 m/s Peak Gradient: 7.78 mmHg Mean Gradient: 3.56 mmHgDeceleration Time: 258.9 msec Area (continuity): 1.18 cm^2 MV VTI: 46.85 cm MV Juanjo. Peak: 1.38 m/s Tissue Doppler E' Lateral Velocity: 0.04 m/s E/E': 36.76 Aortic Valve Peak Velocity: 2.49 m/sMean Velocity: 1.57 m/s Peak Gradient: 24.75 mmHgMean Gradient: 11.82 mmHg AV Area (continuity): 1.06 cm^2Area (2D): 1.6 cm^2 AV VTI: 52.13 cm AR P1/2t: 559.8 msec AV DVI: 0.43 LVOT Peak Velocity: 1.04 m/s Peak Gradient: 4.34 mmHg Mean Velocity: 0.68 m/s Mean Gradient: 2.13 mmHg LVOT Diameter: 1.77 cmLVOT VTI: 22.57 cm LVOT Area: 2.46 cm^2LVOT SV:55.51 ml LVOT CO: 3.55 l/min LVOT CI: 2.08 l/min/m^2 Tricuspid Valve TR Velocity: 2.48 m/s TR Gradient: 24.61 mmHg Procedure Note Interface, External Ris In - 03/25/2018 9:28 AM BALLISTICS TESTER Transthoracic Echocardiography Report (TTE) Demographics Patient Name YEYO COLLINS Date of Study 03/24/2018 OPAL TAYLOR [id number] Gender Female Visit Number [id number] Race Unknown Room Number 6214 Number Date of 1935 Referring Physician Age 82 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 Clinical History Congestive Heart Failure CKD Coronary Artery Disease Diabetes Hypertension HGB 9.9 HCT 31.7 % Height: 63 inches Weight: 67.59 kg (149 lbs) BSA: 1.71 m^2 BMI: 26.39 kg/m^2 HR: 64 bpm BP: 107/48 mmHg Summary The LV endocardium is well visualized. The LV endocardium is well visualized. The left ventricle is chamber size (by PSLAX dimension) is normal (female - LVIDd 3.8-5.2cm) . Sigmoid septum with discrete basal septal hypertrophy is present. All of the LV segments contract normally . LVEF by Perry's method of disk assessment is normal (>60%) . Degree of diastolic dysfunction (LAP assessment) is inconclusive due to mitral annular calcification . Sfmi-os-ynpdvagv aortic stenosis. Estimated peak systolic PA pressure is 30-35 mmHg . A trivial pericardial effusion is present . Signature Findings Left Ventricle The LV endocardium is well visualized. The left ventricle is chamber size (by PSLAX dimension) is normal (female - LVIDd 3.8-5.2cm) . Sigmoid septum with discrete basal septal hypertrophy is present. All of the LV segments contract normally . LVEF by Perry's method of disk assessment is normal (>60%) . Degree of diastolic dysfunction (LAP assessment) is inconclusive due to mitral annular calcification . Left Atrium LA size is severely enlarged (>48 ml/m2) . Right Ventricle RV chamber size is normal . Global RV systolic function is low normal . RV pacing wire is visualized . Right Atrium RA size is normal. RA pacing wire is visualized . Aortic Valve Mild AoV cusp thickening. AoV cusp mobility is mildly decreased . AoV thickening primarily involves the right- and left- coronary cups(s). Dlub-sh-vdainfuv aortic stenosis. AoV area at rest by continuity equation is in the range of 1.06 cm2. AoV area by planimtery is in the range of 1.6 cm2. AoV resting dimensionless obstructive index (DOI) 0.4. Mild aortic regurgitation. Mitral Valve Moderate mitral annular calcification. Mild mitral regurgitation. Moderate calcification of both anterior and posterior leaflet(s) of mitral valve. MV gradients are mildly increased in part due to mitral annular calcification . Tricuspid Valve Mild tricuspid regurgitation. Estimated peak systolic PA pressure is 30-35 mmHg . Pulmonic Valve Normal PV structure and function. No evidence of pulmonary regurgitation. Aorta Aortic root size (SInus of Valsalva diameter) is normal . Pericardium A trivial pericardial effusion is present . IVC/SVC/PA/PV/Pleural The estimated RA pressure by IVC dynamics 5-10mmHg . Chambers/Structures Left Atrium LA Dimension: 4.14 cm LA Area: 21.41 cm^2 LA Volume: 94.87 ml LA Vol. Index: 55 ml/m^2 Left Ventricle LVIDd: 4.24 cm LV Septum Diastolic: 1.05 cm LV PW Diastolic: 0.86 cm LVEDV Perry's:41.15 ml LVESV Perry's:15.37 ml LVEF Perry's: 62.6 % LVEDVI: 24 ml/m^2 LVESVI: 9 ml/m^2 LVOT Diameter: 1.77 cm Right Atrium RA Vol. (Sngl Plane): 25.54 ml Right Ventricle RV Diast Dim.: 3.14 cm TAPSE: 1.37 cm Aorta Ao Root S of Angela.: 2.78 cm Doppler/Quantitative Measurements Mitral Valve MV Peak E-Wave: 1.39 m/s MV Peak A-Wave: 1.2 m/s E/A Ratio: 1.16 Mean Velocity: 0.88 m/s Peak Gradient: 7.78 mmHg Mean Gradient: 3.56 mmHg Deceleration Time: 258.9 msec Area (continuity): 1.18 cm^2 MV VTI: 46.85 cm MV Juanjo. Peak: 1.38 m/s Tissue Doppler E' Lateral Velocity: 0.04 m/s E/E': 36.76 Aortic Valve Peak Velocity: 2.49 m/s Mean Velocity: 1.57 m/s Peak Gradient: 24.75 mmHg Mean Gradient: 11.82 mmHg AV Area (continuity): 1.06 cm^2 Area (2D): 1.6 cm^2 AV VTI: 52.13 cm AR P1/2t: 559.8 msec AV DVI: 0.43 LVOT Peak Velocity: 1.04 m/s Peak Gradient: 4.34 mmHg Mean Velocity: 0.68 m/s Mean Gradient: 2.13 mmHg LVOT Diameter: 1.77 cm LVOT VTI: 22.57 cm LVOT Area: 2.46 cm^2 LVOT SV:55.51 ml LVOT CO: 3.55 l/min LVOT CI: 2.08 l/min/m^2 Tricuspid Valve TR Velocity: 2.48 m/s TR Gradient: 24.61 mmHg Performing Organization Address City/State/Zipcode Phone Number [facility] CBC with platelet count + automated diff (03/24/2018 5:11 AM BALLISTICS TESTER) WBC 10.9 (H) 3.5 - 10.5 K/L [facility] RBC 3.53 (L) 3.93 - 5.22 M/L [facility] Hemoglobin 9.9 (L) 11.2 - 15.7 GM/DL [facility] Hematocrit 31.7 (L) 34.1 - 44.9 % [facility] MCV 89.8 79.4 - 94.8 fL [facility] MCH 28.0 25.6 - 32.2 pg [facility] MCHC 31.2 (L) 32.2 - 35.5 GM/DL [facility] RDW 17.8 (H) 11.7 - 14.4 % [facility] Platelets 365 150 - 450 K/CU MM [facility] MPV 10.4 9.4 - 12.3 fL [facility] nRBC 0 0 - 0 /100 WBC [facility] % Neutros 75 % [facility] % Lymphs 12 % [facility] % Monos 9 % [facility] % Eos 3 % [facility] % Baso 0 % [facility] # Neutros 8.15 (H) 1.56 - 6.13 K/L [facility] # Lymphs 1.32 1.18 - 3.74 K/L [facility] # Monos 0.94 (H) 0.24 - 0.36 K/L [facility] # Eos 0.32 0.04 - 0.36 K/L [facility] # Baso 0.04 0.01 - 0.08 K/L [facility] Immature Granulocytes-Relative 1 0 - 1 % [facility] Specimen Blood Performing Organization Address City/State/Zipcode Phone Number [facility] [address] [place] [address] CENTER Comprehensive metabolic panel (03/24/2018 5:11 AM BALLISTICS TESTER) Protein, Total 6.4 6.0 - 8.3 gm/dL [facility] Albumin 2.8 (L) 3.5 - 5.0 g/dL [facility] Alkaline Phosphatase 108 40 - 150 U/L [facility] Total Bilirubin 0.4 0.2 - 1.2 mg/dL [facility] Sodium 129 (L) 136 - 145 meq/L [facility] Potassium 3.3 (L) 3.5 - 5.1 meq/L [facility] Chloride 99 98 - 107 meq/L [facility] CO2 21 (L) 22 - 29 meq/L [facility] BUN 47 (H) 7 - 21 mg/dL [facility] Creatinine 3.80 (H) 0.57 - 1.25 mg/dL [facility] Glucose 103 70 - 105 mg/dL [facility] Calcium 9.6 8.4 - 10.2 mg/dL [facility] AST 46 (H) 5 - 34 U/L [facility] ALT 49 6 - 55 U/L [facility] EGFR Comment: INSUFFICIENT mL/min/1.73 sq m [facility] CLINICAL DATA TO [facility] CALCULATE ESTIMATED GFR. Specimen Blood Performing Organization Address [facility] Cent[facility]ode Phone Number [id number] [place] [address] [phone] CENTER Troponin I (03/23/2018 8:43 PM BALLISTICS TESTER) Troponin I 1.89 (HH) 0.00 - 0.03 ng/mL [facility] Specimen Blood Narrative Performed At Troponin I (TnI) levels must be interpreted [facility] in the context of the presenting symptoms and the clinical findings. Elevated TnI levels indicate myocardial damage, but are not specific for ischemic heart disease. Elevated TnI levels are seen in patients with other cardiac conditions (including myocarditis and congestive heart failure), and slight TnI elevations occur in patients with other conditions, including sepsis, renal failure, acidosis, acute neurological disease, and persistent tachyarrhythmia. Fasting Performing Organization Address City/[facility] Cent[facility]ode Phone Number [facility] [address] [place] [address] CENTER Platelet count (03/23/2018 8:43 PM BALLISTICS TESTER) Platelets 364 150 - 450 K/CU MM [facility] Specimen Blood Performing Organization Address City/[facility]/Zipcode Phone Number [facility] [address] [place], [place] [phone] [place] B-type Natriuretic Factor (BNP) (03/23/2018 8:43 PM BALLISTICS TESTER) BNP 2,021 (H) 0 - 100 pg/mL [facility] Specimen Blood Performing Organization Address City/[facility]/Zipcode Phone Number [facility] [address] [place], [place] [phone] [place] Lipid panel (03/23/2018 8:43 PM BALLISTICS TESTER) Triglycerides 132 mg/dL [facility] Cholesterol 103 mg/dL [facility] HDL 24 mg/dL [facility] LDL Calculated 53 mg/dL [facility] Specimen Blood Narrative Performed At Triglyceride Reference Range: [facility] Low Risk <150 [id number] High Risk 200-499 Very High Risk>=500 Cholesterol Reference Range: Low Risk <200 [id number] High Risk>240 HDL Cholesterol Reference Range: Low Risk >=60 High Risk <40 LDL Cholesterol Reference Range: Optimal<100 Near [id number] Very High >=190 Fasting Performing Organization Address City/[facility] Centercode Phone Number [phone] [place] [address] [phone] CENTER after 04/03/2017 Insurance Payer Benefit Plan / Group Subscriber ID Type Phone Address MEDICARE MEDICARE A B xxxxxxxxxx Medicare Advance Directives For more information, please contact:[address] [phone] Code Status Date Activated Date Inactivated Comments Full Code 03/23/2018 8:26 PM This code status was determined by: Patient
--- OUTSIDE RECORDS SUMMARY | 2018-04-04 11:29 | XMS REPORT ---
:1935 [facility] [place] [address] Care Team Providers Name Role Phone RENÉE KABA Unavailable Unavailable Problems This patient has no known problems. Allergies, Adverse Reactions, Alerts This patient has no known allergies or adverse reactions. Medications This patient has no known medications. Results Test Description Test Time Test Comments Text Results Atomic Results Result Comments POCT-GLUCOSE METER 2018-03-29 13:22:00 Test Item Value Reference Range Comments POC-GLUCOSE METER (BEAKER) (test 148 mg/dL 70-110 TESTED AT [facility] [address] [place] [address] gxzi=3817) [facility] [address] BASIC METABOLIC [id number] 09:04:00 Test Item Value Reference Range Comments SODIUM (BEAKER) (test 135 meq/L 136-145 mlnl=002) POTASSIUM (BEAKER) (test 4.0 meq/L 3.5-5.1 myeu=649) CHLORIDE (BEAKER) (test 103 meq/L 98-107 tvhe=331) CO2 (BEAKER) (test 24 meq/L 22-29 fufl=229) BLOOD UREA NITROGEN 23 mg/dL 7-21 (BEAKER) (test xcvq=485) CREATININE (BEAKER) (test 2.91 mg/dL 0.57-1.25 nqmi=403) GLUCOSE RANDOM (BEAKER) 108 mg/dL 70-105 (test tyna=229) CALCIUM (BEAKER) (test 9.1 mg/dL 8.4-10.2 hdsx=368) EGFR (BEAKER) (test 16 mL/min/1.73 sq m ESTIMATED GFR IS NOT diou=8902) ACCURATE CREATININE CLEARANCE IN PREDICTING GLOMERULAR FILTRATION RATE. ESTIMATED GFR IS NOT APPLICABLE FOR DIALYSIS PATIENTS. Please draw today if not done already.POCT-GLUCOSE [id number] 08:48:00 Test Item Value Reference Range Comments POC-GLUCOSE METER (BEAKER) 127 mg/dL 70-110 TESTED AT [address] (test fppx=1568) [facility] [address] [id number] 08:14:00 Test Item Value Reference Range Comments MAGNESIUM (BEAKER) (test enzg=632) 1.8 mg/dL 1.6-2.6 Please draw today if not done already.CBC (HEMOGRAM ONLY)2018-03-29 07:56:00 Test Item Value Reference Range Comments WHITE BLOOD CELL COUNT (BEAKER) (test kfra=109) 11.9 K/ L 3.5-10.5 RED BLOOD CELL COUNT (BEAKER) (test gcwp=907) 3.64 M/ L 3.93-5.22 HEMOGLOBIN (BEAKER) (test hgah=452) 10.3 GM/DL 11.2-15.7 HEMATOCRIT (BEAKER) (test edqh=989) 32.7 % 34.1-44.9 MEAN CORPUSCULAR VOLUME (BEAKER) (test fssp=378) 89.8 fL 79.4-94.8 MEAN CORPUSCULAR HEMOGLOBIN (BEAKER) (test 28.3 pg 25.6-32.2 rdxv=114) MEAN CORPUSCULAR HEMOGLOBIN CONC (BEAKER) (test 31.5 GM/DL 32.2-35.5 fbiy=875) RED CELL DISTRIBUTION WIDTH (BEAKER) (test 17.7 % 11.7-14.4 ztit=238) PLATELET COUNT (BEAKER) (test oaqf=137) 359 K/CU MM 150-450 MEAN PLATELET VOLUME (BEAKER) (test mwxa=398) 10.1 fL 9.4-12.3 NUCLEATED RED BLOOD CELLS (BEAKER) (test 0 /100 WBC 0-0 bvhn=217) POCT-GLUCOSE [id number] 23:20:00 Test Item Value Reference Range Comments POC-GLUCOSE METER (BEAKER) 181 mg/dL 70-110 TESTED AT [address] (test xwan=7045) [facility] [address] POCT-GLUCOSE [id number] 18:54:00 Test Item Value Reference Range Comments POC-GLUCOSE METER (BEAKER) 162 mg/dL 70-110 TESTED AT [address] (test ijrv=1783) [place] [id number] C. DIFFICILE GDH [id number] 16:18:00 Test Item Value Reference Range Comments CDT TOXIN (test Negative Negative lphm=[id number]) CDT GDH ANTIGEN (test Negative Negative No indication of Clostridium llkd=[id number]) difficile infection and no colonization. Discontinue enteric isolation and therapy. Testing performed by [employer] Rapid Cassette Assay. For GDH, published sensitivity of the assay is 98.7% compared to cytotoxicity testing. For Toxin AB, published sensitivity is 87.8% and specificity 99.4% compared to cytotoxicity testing.Verification of kit performance was done by the [facility] Microbiology Lab prior to clinical use.POCT-GLUCOSE [id number] 15:35:00 Test Item Value Reference Range Comments POC-GLUCOSE METER (BEAKER) 162 mg/dL 70-110 TESTED AT [address] (test hagv=3902) [place] [address] POCT-GLUCOSE [id number] 14:06:00 Test Item Value Reference Range Comments POC-GLUCOSE METER (BEAKER) 175 mg/dL 70-110 TESTED AT [address] (test rqai=2272) [place] [address] POCT-GLUCOSE [id number] 10:16:00 Test Item Value Reference Range Comments POC-GLUCOSE METER (BEAKER) 163 mg/dL 70-110 TESTED AT [address] (test ekrc=6912) [place] [address] BASIC METABOLIC [id number] 06:00:00 Test Item Value Reference Range Comments SODIUM (BEAKER) (test 132 meq/L 136-145 hcch=772) POTASSIUM (BEAKER) (test 4.1 meq/L 3.5-5.1 ugtm=903) CHLORIDE (BEAKER) (test 101 meq/L 98-107 indk=951) CO2 (BEAKER) (test 21 meq/L 22-29 ewbs=409) BLOOD UREA NITROGEN 40 mg/dL 7-21 (BEAKER) (test vxey=945) CREATININE (BEAKER) (test 4.19 mg/dL 0.57-1.25 htdc=723) GLUCOSE RANDOM (BEAKER) 122 mg/dL 70-105 (test oull=426) CALCIUM (BEAKER) (test 9.3 mg/dL 8.4-10.2 kuto=743) EGFR (BEAKER) (test 10 mL/min/1.73 sq m ESTIMATED GFR IS NOT qsqm=5129) ACCURATE CREATININE CLEARANCE IN PREDICTING GLOMERULAR FILTRATION RATE. ESTIMATED GFR IS NOT APPLICABLE FOR DIALYSIS PATIENTS. Please draw today if not done already.[id number] 05:59:00 Test Item Value Reference Range Comments MAGNESIUM (BEAKER) (test ybcg=011) 1.8 mg/dL 1.6-2.6 Please draw today if not done already.CBC (HEMOGRAM ONLY)2018-03-28 05:43:00 Test Item Value Reference Range Comments WHITE BLOOD CELL COUNT (BEAKER) (test dvrt=973) 11.3 K/ L 3.5-10.5 RED BLOOD CELL COUNT (BEAKER) (test qgmk=836) 3.61 M/ L 3.93-5.22 HEMOGLOBIN (BEAKER) (test alwi=749) 10.1 GM/DL 11.2-15.7 HEMATOCRIT (BEAKER) (test kclt=833) 33.2 % 34.1-44.9 MEAN CORPUSCULAR VOLUME (BEAKER) (test jtyt=583) 92.0 fL 79.4-94.8 MEAN CORPUSCULAR HEMOGLOBIN (BEAKER) (test 28.0 pg 25.6-32.2 hjix=219) MEAN CORPUSCULAR HEMOGLOBIN CONC (BEAKER) (test 30.4 GM/DL 32.2-35.5 vgwk=230) RED CELL DISTRIBUTION WIDTH (BEAKER) (test 18.2 % 11.7-14.4 dpra=356) PLATELET COUNT (BEAKER) (test iifl=765) 357 K/CU MM 150-450 MEAN PLATELET VOLUME (BEAKER) (test xfst=407) 9.7 fL 9.4-12.3 NUCLEATED RED BLOOD CELLS (BEAKER) (test 0 /100 WBC 0-0 tfce=101) POCT-GLUCOSE [id number] 22:08:00 Test Item Value Reference Range Comments POC-GLUCOSE METER (BEAKER) 154 mg/dL 70-110 TESTED AT [facility] [address] [facility] (test ecfg=6007) [facility] [address] POCT-GLUCOSE [id number] 17:45:00 Test Item Value Reference Range Comments POC-GLUCOSE METER (BEAKER) 215 mg/dL 70-110 TESTED AT [address] (test oabj=3597) [place] [address] ANG, AV-SHUNT, CATH INTRO WITH [id number] 16:13:00Reason for exam:-> LUE clotted hemodialysis vascular accessFINAL REPORT Procedure: Attempted declotting of left upper arm clotted AV dialysis graft, 03/27 HISTORY: Clotted graft x3 weeks Anesthesia: 2% [...] the left arm AV dialysis graft. Signed: Cristino Cunningham MDReport Verified Date/Time: 03/27/2018 16:13:07 Reading Location: [place] [address] Angio Body Reading Room POCT-GLUCOSE [id number] 13:21:00 Test Item Value Reference Range Comments POC-GLUCOSE METER (BEAKER) 201 mg/dL 70-110 TESTED AT [address] (test qukc=0929) [place] [address] POCT-GLUCOSE [id number] 09:57:00 Test Item Value Reference Range Comments POC-GLUCOSE METER (BEAKER) 95 mg/dL 70-110 TESTED AT [address] (test znzf=6264) [place] [address] BASIC METABOLIC [id number] 06:47:00 Test Item Value Reference Range Comments SODIUM (BEAKER) (test 132 meq/L 136-145 jlmp=939) POTASSIUM (BEAKER) (test 3.7 meq/L 3.5-5.1 aclf=093) CHLORIDE (BEAKER) (test 103 meq/L 98-107 enwt=738) CO2 (BEAKER) (test 20 meq/L 22-29 cwdq=327) BLOOD UREA NITROGEN 26 mg/dL 7-21 (BEAKER) (test fhil=437) CREATININE (BEAKER) (test 3.15 mg/dL 0.57-1.25 wphj=526) GLUCOSE RANDOM (BEAKER) 100 mg/dL 70-105 (test jjei=925) CALCIUM (BEAKER) (test 8.9 mg/dL 8.4-10.2 zgki=365) EGFR (BEAKER) (test mL/min/1.73 sq m INSUFFICIENT CLINICAL DATA cmqg=0656) TO CALCULATE ESTIMATED GFR. Please draw today if not done already.[id number] 06:38:00 Test Item Value Reference Range Comments MAGNESIUM (BEAKER) (test yfxz=805) 1.8 mg/dL 1.6-2.6 Please draw today if not done already.CBC (HEMOGRAM ONLY)2018-03-27 06:11:00 Test Item Value Reference Range Comments WHITE BLOOD CELL COUNT (BEAKER) (test mzfu=537) 10.8 K/ L 3.5-10.5 RED BLOOD CELL COUNT (BEAKER) (test mabw=332) 3.55 M/ L 3.93-5.22 HEMOGLOBIN (BEAKER) (test akqi=678) 9.9 GM/DL 11.2-15.7 HEMATOCRIT (BEAKER) (test foct=960) 32.3 % 34.1-44.9 MEAN CORPUSCULAR VOLUME (BEAKER) (test vsin=662) 91.0 fL 79.4-94.8 MEAN CORPUSCULAR HEMOGLOBIN (BEAKER) (test 27.9 pg 25.6-32.2 nwvv=293) MEAN CORPUSCULAR HEMOGLOBIN CONC (BEAKER) (test 30.7 GM/DL 32.2-35.5 ixzr=456) RED CELL DISTRIBUTION WIDTH (BEAKER) (test 18.0 % 11.7-14.4 icut=707) PLATELET COUNT (BEAKER) (test uhtv=906) 362 K/CU MM 150-450 MEAN PLATELET VOLUME (BEAKER) (test umtv=235) 10.0 fL 9.4-12.3 NUCLEATED RED BLOOD CELLS (BEAKER) (test 0 /100 WBC 0-0 axoi=516) POCT-GLUCOSE [id number] 23:30:00 Test Item Value Reference Range Comments POC-GLUCOSE METER (BEAKER) 116 mg/dL 70-110 TESTED AT [address] (test iigc=9427) [place] [address] POCT-GLUCOSE [id number] 17:47:00 Test Item Value Reference Range Comments POC-GLUCOSE METER (BEAKER) 146 mg/dL 70-110 TESTED AT [address] (test mwpb=3157) [place] [address] [id number] 15:23:00 Test Item Value Reference Range Comments PHOSPHORUS (BEAKER) (test yxjk=561) 2.0 mg/dL 2.3-4.7 POCT-GLUCOSE [id number] 14:54:00 Test Item Value Reference Range Comments POC-GLUCOSE METER (BEAKER) 127 mg/dL 70-110 TESTED AT [address] (test siwq=9152) [place] [address] HEPATITIS B SURFACE [id number] 10:46:00 Test Item Value Reference Range Comments HEPATITIS B SURFACE ANTIGEN (2) (BEAKER) (test Nonreactive Nonreactive ofkt=8308) POCT-GLUCOSE [id number] 09:05:00 Test Item Value Reference Range Comments POC-GLUCOSE METER (BEAKER) 145 mg/dL 70-110 TESTED AT [address] (test cuso=1165) [place] [address] BASIC METABOLIC [id number] 06:36:00 Test Item Value Reference Range Comments SODIUM (BEAKER) (test 125 meq/L 136-145 ycwz=359) POTASSIUM (BEAKER) (test 4.2 meq/L 3.5-5.1 gnah=750) CHLORIDE (BEAKER) (test 93 meq/L 98-107 fngh=385) CO2 (BEAKER) (test 19 meq/L 22-29 tiiw=488) BLOOD UREA NITROGEN 75 mg/dL 7-21 (BEAKER) (test kegj=705) CREATININE (BEAKER) (test 5.98 mg/dL 0.57-1.25 rvxk=289) GLUCOSE RANDOM (BEAKER) 119 mg/dL 70-105 (test pybr=338) CALCIUM (BEAKER) (test 9.2 mg/dL 8.4-10.2 stvb=928) EGFR (BEAKER) (test mL/min/1.73 sq m INSUFFICIENT CLINICAL DATA wehg=8881) TO CALCULATE ESTIMATED GFR. Please draw today if not done already.[id number] 06:25:00 Test Item Value Reference Range Comments MAGNESIUM (BEAKER) (test rhqa=166) 1.9 mg/dL 1.6-2.6 Please draw today if not done already.PROTHROMBIN TIME/[id number] 05:41:00 Test Item Value Reference Range Comments PROTIME (BEAKER) (test xzhc=997) 14.8 seconds 11.7-14.7 INR (BEAKER) (test cgdm=153) 1.2 <=5.9 RECOMMENDED COUMADIN/WARFARIN INR THERAPY RANGESSTANDARD DOSE: 2.0 - 3.0 Includes: PROPHYLAXIS forvenous thrombosis, systemic embolization; TREATMENT for venous thrombosis and/or pulmonary embolus.HIGH RISK: Target INR is 2.5-3.5 for patients with mechanical heart valves.CBC (HEMOGRAM ONLY)2018-03-26 05:36:00 Test Item Value Reference Range Comments WHITE BLOOD CELL COUNT (BEAKER) (test hqyp=226) 12.0 K/ L 3.5-10.5 RED BLOOD CELL COUNT (BEAKER) (test olcf=300) 3.53 M/ L 3.93-5.22 HEMOGLOBIN (BEAKER) (test zktx=884) 10.0 GM/DL 11.2-15.7 HEMATOCRIT (BEAKER) (test bdym=899) 31.6 % 34.1-44.9 MEAN CORPUSCULAR VOLUME (BEAKER) (test ugcu=559) 89.5 fL 79.4-94.8 MEAN CORPUSCULAR HEMOGLOBIN (BEAKER) (test 28.3 pg 25.6-32.2 zpwy=344) MEAN CORPUSCULAR HEMOGLOBIN CONC (BEAKER) (test 31.6 GM/DL 32.2-35.5 bwry=325) RED CELL DISTRIBUTION WIDTH (BEAKER) (test 17.7 % 11.7-14.4 djdu=111) PLATELET COUNT (BEAKER) (test xapx=455) 401 K/CU MM 150-450 MEAN PLATELET VOLUME (BEAKER) (test ejbj=239) 10.6 fL 9.4-12.3 NUCLEATED RED BLOOD CELLS (BEAKER) (test 0 /100 WBC 0-0 onsm=306) [id number] 02:04:00 Test Item Value Reference Range Comments PARTIAL THROMBOPLASTIN TIME (BEAKER) (test 60.2 seconds 22.5-36.0 ollz=450) POCT-GLUCOSE [id number] 20:52:00 Test Item Value Reference Range Comments POC-GLUCOSE METER (BEAKER) 153 mg/dL 70-110 TESTED AT [address] (test ulse=9544) [place] [address] [id number] 18:30:00 Test Item Value Reference Range Comments PARTIAL THROMBOPLASTIN TIME (BEAKER) (test 78.9 seconds 22.5-36.0 yjkl=034) POCT-GLUCOSE [id number] 17:26:00 Test Item Value Reference Range Comments POC-GLUCOSE METER (BEAKER) 148 mg/dL 70-110 TESTED AT [address] (test bfph=8490) [place] [address] POCT-GLUCOSE [id number] 12:32:00 Test Item Value Reference Range Comments POC-GLUCOSE METER (BEAKER) 186 mg/dL 70-110 TESTED AT [address] (test vdnh=2514) [place] [address] [id number] 12:22:00 Test Item Value Reference Range Comments PARTIAL THROMBOPLASTIN TIME (BEAKER) (test 98.1 seconds 22.5-36.0 xmtt=944) POCT-GLUCOSE [id number] 08:04:00 Test Item Value Reference Range Comments POC-GLUCOSE METER (BEAKER) 139 mg/dL 70-110 TESTED AT [address] (test voag=9619) [place] [address] IRON, TIBC, % SAT. (WITHOUT FERRITIN)2018-03-25 05:38:00 Test Item Value Reference Range Comments IRON (BEAKER) (test dpxu=751) 29.0 ug/dL 40.0-160.0 TOTAL IRON BINDING CAPACITY (BEAKER) (test 123 ug/dL 250-450 qtmg=954) IRON % SATURATION (2) (BEAKER) (test vpry=1141) 24 % 20-55 BASIC METABOLIC [id number] 05:29:00 Test Item Value Reference Range Comments SODIUM (BEAKER) (test 128 meq/L 136-145 szxw=619) POTASSIUM (BEAKER) (test 4.1 meq/L 3.5-5.1 cbkz=875) CHLORIDE (BEAKER) (test 98 meq/L 98-107 bwej=800) CO2 (BEAKER) (test 18 meq/L 22-29 lvex=095) BLOOD UREA NITROGEN 57 mg/dL 7-21 (BEAKER) (test lgtn=078) CREATININE (BEAKER) (test 4.80 mg/dL 0.57-1.25 gvxd=958) GLUCOSE RANDOM (BEAKER) 105 mg/dL 70-105 (test xojh=016) CALCIUM (BEAKER) (test 9.5 mg/dL 8.4-10.2 hxnv=421) EGFR (BEAKER) (test mL/min/1.73 sq m INSUFFICIENT CLINICAL DATA fnht=6483) TO CALCULATE ESTIMATED GFR. Please draw today if not done already.[id number] 05:15:00 Test Item Value Reference Range Comments MAGNESIUM (BEAKER) (test feeh=172) 1.8 mg/dL 1.6-2.6 Please draw today if not done already.[id number] 04:56:00 Test Item Value Reference Range Comments PARTIAL THROMBOPLASTIN TIME (BEAKER) (test 90.6 seconds 22.5-36.0 uyxd=083) PROTHROMBIN [id number] 04:55:00 Test Item Value Reference Range Comments PROTIME (BEAKER) (test owls=419) 15.0 seconds 11.7-14.7 INR (BEAKER) (test flbb=931) 1.1 <=5.9 RECOMMENDED COUMADIN/WARFARIN INR THERAPY RANGESSTANDARD DOSE: 2.0 - 3.0 Includes: PROPHYLAXIS forvenous thrombosis, systemic embolization; TREATMENT for venous thrombosis and/or pulmonary embolus.HIGH RISK: Target INR is 2.5-3.5 for patients with mechanical heart valves.CBC (HEMOGRAM ONLY)2018-03-25 04:50:00 Test Item Value Reference Range Comments WHITE BLOOD CELL COUNT (BEAKER) (test icfq=959) 10.2 K/ L 3.5-10.5 RED BLOOD CELL COUNT (BEAKER) (test vfeg=463) 3.76 M/ L 3.93-5.22 HEMOGLOBIN (BEAKER) (test ifsi=381) 10.6 GM/DL 11.2-15.7 HEMATOCRIT (BEAKER) (test qoxh=623) 33.9 % 34.1-44.9 MEAN CORPUSCULAR VOLUME (BEAKER) (test zeaf=806) 90.2 fL 79.4-94.8 MEAN CORPUSCULAR HEMOGLOBIN (BEAKER) (test 28.2 pg 25.6-32.2 utza=422) MEAN CORPUSCULAR HEMOGLOBIN CONC (BEAKER) (test 31.3 GM/DL 32.2-35.5 nqhy=584) RED CELL DISTRIBUTION WIDTH (BEAKER) (test 17.9 % 11.7-14.4 qofh=178) PLATELET COUNT (BEAKER) (test xfdb=488) 389 K/CU MM 150-450 MEAN PLATELET VOLUME (BEAKER) (test rclm=059) 9.9 fL 9.4-12.3 NUCLEATED RED BLOOD CELLS (BEAKER) (test 0 /100 WBC 0-0 snbs=855) [id number] 22:51:00 Test Item Value Reference Range Comments PARTIAL THROMBOPLASTIN TIME (BEAKER) (test 58.5 seconds 22.5-36.0 ofhr=903) POCT-GLUCOSE [id number] 21:34:00 Test Item Value Reference Range Comments POC-GLUCOSE METER (BEAKER) 191 mg/dL 70-110 TESTED AT [address] (test ovau=8377) [place] [id number] POCT-GLUCOSE [id number] 17:43:00 Test Item Value Reference Range Comments POC-GLUCOSE METER (BEAKER) 171 mg/dL 70-110 TESTED AT [address] (test amjb=0214) [place] [id number] 13:32:00 Test Item Value Reference Range Comments PARTIAL THROMBOPLASTIN TIME (BEAKER) (test 63.7 seconds 22.5-36.0 rbdj=826) POCT-GLUCOSE [id number] 12:45:00 Test Item Value Reference Range Comments POC-GLUCOSE METER (BEAKER) 81 mg/dL 70-110 TESTED AT [address] (test rlgl=9078) [facility] [address] POCT-GLUCOSE [id number] 07:44:00 Test Item Value Reference Range Comments POC-GLUCOSE METER (BEAKER) 128 mg/dL 70-110 TESTED AT [facility] [address] (test gaqz=5108) [facility] [address] CBC W/PLT COUNT & AUTO [id number] 07:43:00 Test Item Value Reference Range Comments WHITE BLOOD CELL COUNT (BEAKER) (test fydn=264) 10.9 K/ L 3.5-10.5 RED BLOOD CELL COUNT (BEAKER) (test zdgy=849) 3.53 M/ L 3.93-5.22 HEMOGLOBIN (BEAKER) (test nsib=404) 9.9 GM/DL 11.2-15.7 HEMATOCRIT (BEAKER) (test xmwp=388) 31.7 % 34.1-44.9 MEAN CORPUSCULAR VOLUME (BEAKER) (test qfnd=111) 89.8 fL 79.4-94.8 MEAN CORPUSCULAR HEMOGLOBIN (BEAKER) (test 28.0 pg 25.6-32.2 xzxe=185) MEAN CORPUSCULAR HEMOGLOBIN CONC (BEAKER) (test 31.2 GM/DL 32.2-35.5 xstx=444) RED CELL DISTRIBUTION WIDTH (BEAKER) (test 17.8 % 11.7-14.4 rhtr=222) PLATELET COUNT (BEAKER) (test bidm=689) 365 K/CU MM 150-450 MEAN PLATELET VOLUME (BEAKER) (test jyjk=968) 10.4 fL 9.4-12.3 NUCLEATED RED BLOOD CELLS (BEAKER) (test 0 /100 WBC 0-0 cnbc=356) NEUTROPHILS RELATIVE PERCENT (BEAKER) (test 75 % aocc=390) LYMPHOCYTES RELATIVE PERCENT (BEAKER) (test 12 % yiwx=051) MONOCYTES RELATIVE PERCENT (BEAKER) (test 9 % mdxd=131) EOSINOPHILS RELATIVE PERCENT (BEAKER) (test 3 % ueht=154) BASOPHILS RELATIVE PERCENT (BEAKER) (test 0 % uwka=438) NEUTROPHILS ABSOLUTE COUNT (BEAKER) (test 8.15 K/ L 1.56-6.13 vqqq=879) LYMPHOCYTES ABSOLUTE COUNT (BEAKER) (test 1.32 K/ L 1.18-3.74 yoxv=040) MONOCYTES ABSOLUTE COUNT (BEAKER) (test 0.94 K/ L 0.24-0.36 fymv=438) EOSINOPHILS ABSOLUTE COUNT (BEAKER) (test 0.32 K/ L 0.04-0.36 bfjy=191) BASOPHILS ABSOLUTE COUNT (BEAKER) (test 0.04 K/ L 0.01-0.08 qyhg=477) IMMATURE GRANULOCYTES-RELATIVE PERCENT (BEAKER) 1 % 0-1 (test xiui=5935) COMPREHENSIVE METABOLIC [id number] 06:39:00 Test Item Value Reference Range Comments TOTAL PROTEIN (BEAKER) 6.4 gm/dL 6.0-8.3 (test nexu=310) ALBUMIN (BEAKER) (test 2.8 g/dL 3.5-5.0 ncgh=7197) ALKALINE PHOSPHATASE 108 U/L 40-150 (BEAKER) (test ryjt=610) BILIRUBIN TOTAL (BEAKER) 0.4 mg/dL 0.2-1.2 (test lqwb=504) SODIUM (BEAKER) (test 129 meq/L 136-145 qrqr=749) POTASSIUM (BEAKER) (test 3.3 meq/L 3.5-5.1 izap=144) CHLORIDE (BEAKER) (test 99 meq/L 98-107 ncsf=557) CO2 (BEAKER) (test 21 meq/L 22-29 yyad=744) BLOOD UREA NITROGEN 47 mg/dL 7-21 (BEAKER) (test ynbu=838) CREATININE (BEAKER) (test 3.80 mg/dL 0.57-1.25 jmgl=576) GLUCOSE RANDOM (BEAKER) 103 mg/dL 70-105 (test axtu=141) CALCIUM (BEAKER) (test 9.6 mg/dL 8.4-10.2 bxne=295) AST (SGOT) (BEAKER) (test 46 U/L 5-34 kaek=856) ALT (SGPT) (BEAKER) (test 49 U/L 6-55 vyai=595) EGFR (BEAKER) (test mL/min/1.73 sq m INSUFFICIENT CLINICAL DATA cnfv=2359) TO CALCULATE ESTIMATED GFR. [id number] 06:31:00 Test Item Value Reference Range Comments PHOSPHORUS (BEAKER) (test macy=832) 3.2 mg/dL 2.3-4.7 [id number] 06:31:00 Test Item Value Reference Range Comments MAGNESIUM (BEAKER) (test coyp=023) 1.7 mg/dL 1.6-2.6 PROTHROMBIN TIME/[id number] 06:12:00 Test Item Value Reference Range Comments PROTIME (BEAKER) (test arbt=236) 16.3 seconds 11.7-14.7 INR (BEAKER) (test afst=264) 1.3 <=5.9 RECOMMENDED COUMADIN/WARFARIN INR THERAPY RANGESSTANDARD DOSE: 2.0 - 3.0 Includes: PROPHYLAXIS forvenous thrombosis, systemic embolization; TREATMENT for venous thrombosis and/or pulmonary embolus.HIGH RISK: Target INR is 2.5-3.5 for patients with mechanical heart valves.[id number] 06:12:00 Test Item Value Reference Range Comments PARTIAL THROMBOPLASTIN TIME (BEAKER) (test 92.6 seconds 22.5-36.0 vgwk=120) CBC (HEMOGRAM ONLY)2018-03-24 05:58:00 Test Item Value Reference Range Comments WHITE BLOOD CELL COUNT (BEAKER) (test jjpe=166) 10.9 K/ L 3.5-10.5 RED BLOOD CELL COUNT (BEAKER) (test abdf=750) 3.53 M/ L 3.93-5.22 HEMOGLOBIN (BEAKER) (test vjjd=529) 9.9 GM/DL 11.2-15.7 HEMATOCRIT (BEAKER) (test yacw=403) 31.7 % 34.1-44.9 MEAN CORPUSCULAR VOLUME (BEAKER) (test dyut=801) 89.8 fL 79.4-94.8 MEAN CORPUSCULAR HEMOGLOBIN (BEAKER) (test 28.0 pg 25.6-32.2 upmi=117) MEAN CORPUSCULAR HEMOGLOBIN CONC (BEAKER) (test 31.2 GM/DL 32.2-35.5 crue=668) RED CELL DISTRIBUTION WIDTH (BEAKER) (test 17.8 % 11.7-14.4 yugu=892) PLATELET COUNT (BEAKER) (test gzwx=703) 365 K/CU MM 150-450 MEAN PLATELET VOLUME (BEAKER) (test kolv=858) 10.4 fL 9.4-12.3 NUCLEATED RED BLOOD CELLS (BEAKER) (test 0 /100 WBC 0-0 rncm=157) POCT-GLUCOSE [id number] 22:41:00 Test Item Value Reference Range Comments POC-GLUCOSE METER (BEAKER) 171 mg/dL 70-110 TESTED AT [facility] [address] (test evqh=6946) [facility] [id number] TROPONIN [id number] 21:23:00 Test Item Value Reference Range Comments TROPONIN I (BEAKER) (test rzbp=247) 1.89 ng/mL 0.00-0.03 Troponin I (TnI) levels must be interpreted in the context of the presenting symptoms and the clinical findings. Elevated TnI levels indicate myocardial damage, but are not specific for ischemic heart disease. Elevated TnI levels are seen in patients with other cardiac conditions (including myocarditis and congestive heart failure), and slight TnI elevations occur in patients with other conditions, including sepsis, renal failure, acidosis, acute neurological disease, and persistent tachyarrhythmia.FastingB-TYPE NATRIURETIC FACTOR (BNP) 2018-03-23 21:16:00 Test Item Value Reference Range Comments B-TYPE NATRIURETIC PEPTIDE (BEAKER) (test 2021 pg/mL 0-100 xttc=408) LIPID [id number] 21:09:00 Test Item Value Reference Range Comments TRIGLYCERIDES (BEAKER) (test rjmp=871) 132 mg/dL CHOLESTEROL (BEAKER) (test vqls=158) 103 mg/dL HDL CHOLESTEROL (BEAKER) (test tgzu=584) 24 mg/dL LDL CHOLESTEROL CALCULATED (BEAKER) (test 53 mg/dL jctw=177) Triglyceride Reference Range: Low Risk <150 Borderline 150- 199 High Risk 200-499 Very High Risk >=500Cholesterol Reference Range: Low Risk <200 Borderline 200-239 High Risk > 240HDL Cholesterol Reference Range: Low Risk >=60 High Risk <40LDL Cholesterol Reference Range: Optimal <100 Near Optimal 100-129 Borderline 130-159 High 160-189 Very High >=190 [id number] 21:08:00 Test Item Value Reference Range Comments PARTIAL THROMBOPLASTIN TIME (BEAKER) (test 107.2 seconds 22.5-36.0 zdcq=226) Prior to initiating heparinPLATELET [id number] 20:54:00 Test Item Value Reference Range Comments PLATELET COUNT (BEAKER) (test kcjn=726) 364 K/CU MM 150-860
--- NOTE | 2018-04-04 11:56 | ER ---
Nurse's Notes [facility] Name: Dianelys Carroll Age: 82 yrs Sex: Female : 1935 Arrival Date: 04/04/2018 Time: 11:26 Bed 5 Private MD: Diagnosis: Chest pain, unspecified;End stage renal disease-on hd;Unspecified combined systolic (congestive) and diastolic (congestive) heart failure Presentation: 04/04 11:30 Presenting complaint: EMS states: pt c/o chest pain after dialysis today, gave 2 Nitro iw symptoms resolved, recent AK 2 weeks ago, EKG still showing ST elevation. Transition of care: patient was received from another setting of care (long-term care [facility]), [facility]. Onset of symptoms was April 04, 2018. Risk Assessment: Do you want to hurt yourself or someone else? Patient reports no desire to harm self or others. Initial Sepsis Screen: Does the patient meet any 2 criteria? No. Patient's initial sepsis screen is negative. Does the patient have a suspected source of infection? No. Patient's initial sepsis screen is negative. Care prior to arrival: Medication(s) given: Nitroglycerin, 0.4 mg SL x 2. 11:30 Method Of Arrival: EMS: [facility] iw 11:30 Acuity: EFRAÍN 2 iw Historical: - Allergies: 11:32 altase; iw 11:32 clopidogrel bisulfate; iw 11:32 Codeine; iw 11:32 Demerol; iw 11:32 enalapril maleate; iw 11:32 enalaprilat dihydrate; iw 11:32 Ibuprofen; iw 11:32 OPIATES; iw 11:32 propoxyphene napsylate; iw 11:32 Ramipril; iw 11:32 Simvastatin; iw 11:32 Vioxx; iw - Home Meds: 11:50 ticagrelor oral 90 mg oral 1 tab 2 times per day [Active]; aspirin 81 mg Oral TbEC 1 jl7 tab once daily [Active]; citalopram 20 mg TbER 1 tab once daily for Anxiety with Depression [Active]; metoprolol tartrate 25 mg Oral tab 1 tab 2 times per day [Active]; Ativan 1 mg Oral TbER 1 tab every 6 hours for Anxiety [Active]; Zofran (as hydrochloride) 4 mg Oral tab 1 tabs every 8 hours [Active]; tramadol 50 mg Oral TbER 1 tab every 6 hours [Active]; Effient 10 mg Oral TbER 1 tab once daily [Active]; novolin SS [Active]; clonidine HCl 0.1 mg Oral TbER 1 tab 2 times per day [Active]; gabapentin 300 mg Oral cap 1 cap nightly [Active]; lisinopril 20 mg Oral TbER 1 tab once daily [Active]; calcium acetate 667 mg Oral cap 2 caps twice a day [Active]; Imodium Oral [Active]; Lipitor 40 mg Oral TbER 1 tab once daily [Active]; - PMHx: 11:32 Anemia; Diabetes - IDDM; Dialysis; High Cholesterol; hypercalcemia; ESRD; iw HYPERGLYCEMIA; hyperkalemia; hyperparathyroidism; Pacemaker; Myocardial infarction; 11:50 Chronic pulmonary edema; Hyperlipidemia; Anxiety; Hypertension; Depression; Glaucoma; jl7 Dementia; - PSHx: 11:50 BKA- left; jl7 - Immunization history:: Adult Immunizations. - Social history:: Smoking status: Patient/guardian denies using tobacco. - Ebola Screening: : Patient negative for fever greater than or equal to 101.5 degrees Fahrenheit, and additional compatible Ebola Virus Disease symptoms Patient denies exposure to infectious person Patient denies travel to an Ebola-affected area in the 21 days before illness onset No symptoms or risks identified at this time. - Family history:: not pertinent. Screenin:30 Abuse screen: Denies threats or abuse. Denies injuries from another. Nutritional jl7 screening: No deficits noted. Tuberculosis screening: No symptoms or risk factors identified. Fall Risk IV access (20 points). Total Mcintosh Fall Scale indicates No Risk (0-24 pts). Assessment: 11:30 General: Appears in no apparent distress. uncomfortable, Behavior is calm, cooperative, jl7 appropriate for age. Pain: Denies pain. Pain does not radiate. Pain began suddenly. Neuro: Level of Consciousness is awake, alert, obeys commands, Oriented to person, place, time, situation. Cardiovascular: Heart tones S1 S2 present Patient's skin is warm and dry. Respiratory: Airway is patent Respiratory effort is even, unlabored, Respiratory pattern is regular, symmetrical, Breath sounds are clear bilaterally. GI: No signs and/or symptoms were reported involving the gastrointestinal system. : No signs and/or symptoms were reported regarding the genitourinary system. EENT: No signs and/or symptoms were reported regarding the EENT system. Derm: Skin is pink, warm \T\ dry. Musculoskeletal: No signs and/or symptoms reported regarding the musculoskeletal system. 12:30 Reassessment: No changes from previously documented assessment. Patient and/or family jl7 updated on plan of care and expected duration. Pain level reassessed. Patient is alert, oriented x 3, equal unlabored respirations, skin warm/dry/pink. 13:32 Reassessment: No changes from previously documented assessment. Patient and/or family jl7 updated on plan of care and expected duration. Pain level reassessed. Patient is alert, oriented x 3, equal unlabored respirations, skin warm/dry/pink. 14:52 Reassessment: Patient appears in no apparent distress at this time. No changes from [facility] emergency room previously documented assessment. Patient and/or family updated on plan of care and expected duration. Pain level reassessed. Patient is alert, oriented x 3, equal unlabored respirations, skin warm/dry/pink. 15:30 Reassessment: Pt reported diarrhea again, cleaned and changed pt prior to transport to [facility] emergency room 4th floor. Vital Signs: 11:36 BP 150 / 60; Pulse 84; Resp 26 S; Temp 98.6(O); Pulse Ox 98% on R/A; Pain 0/10; jl7 12:00 BP 141 / 59; Pulse 83; Resp 16 S; Pulse Ox 98% on R/A; jl7 12:30 BP 150 / 60; Pulse 83; Resp 16 S; Pulse Ox 99% on R/A; jl7 13:35 BP 117 / 51; Pulse 82; Resp 16 S; Pulse Ox 99% on R/A; jl7 14:27 Weight 54.43 kg; iw 14:48 BP 133 / 68; Pulse 78; Resp 18 S; Temp 99(O); Pulse Ox 99% on R/A; Pain 0/10; jl7 ED Course: 11:26 Patient arrived in ED. iw 11:29 Michael Tamayo MD is Attending Physician. aron 11:30 Patient has correct armband on for positive identification. Placed in gown. Bed in low jl7 position. Call light in reach. Side rails up X2. monitor and storage bin tender on. Pulse ox on. NIBP on. Warm blanket given. 11:30 Inserted saline lock: 22 gauge in right wrist, using aseptic technique. Patient jl7 maintains SpO2 saturation greater than 95% on room air. 11:32 Triage completed. iw 11:36 [place], JOSE is Primary Nurse. jl7 11:36 Arm band placed on right wrist. jl7 11:52 EKG done, by senior electronics technician. reviewed by Michael Tamayo MD. at1 11:55 Coleman Valladares DO is Hospitalizing Provider. aron 12:18 X-ray completed. Portable x-ray completed in exam room. Patient tolerated procedure jb2 well. 12:20 XRAY Chest (1 view) In Process Unspecified. EDMS 14:30 Cleaned of incontinence. jl7 16:06 No provider procedures requiring assistance completed. Patient admitted, IV remains in jl7 place. intact, No redness/swelling at site. Administered Medications: 13:00 Drug: Aspirin Chewable Tablet 162 mg Route: PO; jl7 15:19 Follow up: Response: No adverse reaction jl 15:00 Drug: Heparin (AK-Bolus No thrombolytic) - HEParin 60 units/kg {Co-Signature: aa5 jl7 (Sherry Lomax RN).} Route: IVP; Site: right wrist; 15:19 Follow up: Response: No adverse reaction [facility] emergency room 15:03 Drug: Heparin (AK Drip) 12 units/kg/hr - (HEParin 89127 units, D5W 500 ml) jl7 {Co-Signature: aa5 (Sherry Lomax RN).} Route: IV; Rate: calculated rate; Site: right wrist; 16:05 Follow up: IV Status: Infusion continued upon admission jl7 15:16 Not Given (Duplicate Order): Heparin (AK-Bolus No thrombolytic) - HEParin 60 units/kg jl7 IVP once; Max 5000 units Outcome: 11:56 Decision to Hospitalize by Provider. aron 16:06 Admitted to Tele accompanied by tech, via stretcher, room 419, with chart, Report jl7 called to JOSE Mercado 16:06 Condition: stable 16:06 Discharge instructions given to patient, family, Instructed on the need for admit, Demonstrated understanding of instructions. 16:07 Patient left the ED. jl7 Signatures: Dispatcher [employer] EDMS Michael Tamayo MD MD cha Buechter, Jesse jb2 Samantha Townsend, RN RN iw Loretta Huber, housing court judge EKG Tat1 [place] RN RN jl7 Sherry Lomax RN aa5
--- NOTE | 2018-04-04 11:57 | EDPHYS ---
Physician Documentation [facility] Name: Dianelys Carroll Age: 82 yrs Sex: Female : 1935 Arrival Date: 04/04/2018 Time: 11:26 Bed 5 Private MD: ED Physician Michael Tamayo HPI: 04/04 11:50 This 82 yrs old Female presents to ER via EMS with complaints of Chest Pain. aron 11:50 The patient or guardian reports chest pain that is located primarily in the substernal aron area. Onset: just prior to arrival. The pain does not radiate. Associated signs and symptoms: The patient has no apparent associated signs or symptoms. The chest pain is described as a heaviness, causing indigestion, a pressure. Severity of pain: At its worst the pain was mild moderate in the emergency department the pain has resolved and did so just prior to arrival. Historical: - Allergies: 11:32 altase; iw 11:32 clopidogrel bisulfate; iw 11:32 Codeine; iw 11:32 Demerol; iw 11:32 enalapril maleate; iw 11:32 enalaprilat dihydrate; iw 11:32 Ibuprofen; iw 11:32 OPIATES; iw 11:32 propoxyphene napsylate; iw 11:32 Ramipril; iw 11:32 Simvastatin; iw 11:32 Vioxx; iw - Home Meds: 11:50 ticagrelor oral 90 mg oral 1 tab 2 times per day [Active]; aspirin 81 mg Oral TbEC 1 jl7 tab once daily [Active]; citalopram 20 mg TbER 1 tab once daily for Anxiety with Depression [Active]; metoprolol tartrate 25 mg Oral tab 1 tab 2 times per day [Active]; Ativan 1 mg Oral TbER 1 tab every 6 hours for Anxiety [Active]; Zofran (as hydrochloride) 4 mg Oral tab 1 tabs every 8 hours [Active]; tramadol 50 mg Oral TbER 1 tab every 6 hours [Active]; Effient 10 mg Oral TbER 1 tab once daily [Active]; novolin SS [Active]; clonidine HCl 0.1 mg Oral TbER 1 tab 2 times per day [Active]; gabapentin 300 mg Oral cap 1 cap nightly [Active]; lisinopril 20 mg Oral TbER 1 tab once daily [Active]; calcium acetate 667 mg Oral cap 2 caps twice a day [Active]; Imodium Oral [Active]; Lipitor 40 mg Oral TbER 1 tab once daily [Active]; - PMHx: 11:32 Anemia; Diabetes - IDDM; Dialysis; High Cholesterol; hypercalcemia; ESRD; iw HYPERGLYCEMIA; hyperkalemia; hyperparathyroidism; Pacemaker; Myocardial infarction; 11:50 Chronic pulmonary edema; Hyperlipidemia; Anxiety; Hypertension; Depression; Glaucoma; jl7 Dementia; - PSHx: 11:50 BKA- left; jl7 - Immunization history:: Adult Immunizations. - Social history:: Smoking status: Patient/guardian denies using tobacco. - Ebola Screening: : Patient negative for fever greater than or equal to 101.5 degrees Fahrenheit, and additional compatible Ebola Virus Disease symptoms Patient denies exposure to infectious person Patient denies travel to an Ebola-affected area in the 21 days before illness onset No symptoms or risks identified at this time. - Family history:: not pertinent. ROS: 11:50 Constitutional: Negative for fever, chills, and weight loss, Eyes: Negative for injury, aron pain, redness, and discharge, ENT: Negative for injury, pain, and discharge, Neck: Negative for injury, pain, and swelling, Respiratory: Negative for shortness of breath, cough, wheezing, and pleuritic chest pain, Abdomen/GI: Negative for abdominal pain, nausea, vomiting, diarrhea, and constipation, Back: Negative for injury and pain, : Negative for injury, bleeding, discharge, and swelling, MS/Extremity: Negative for injury and deformity, Skin: Negative for injury, rash, and discoloration, Neuro: Negative for headache, weakness, numbness, tingling, and seizure, Psych: Negative for depression, anxiety, suicide ideation, homicidal ideation, and hallucinations, Allergy/Immunology: Negative for hives, rash, and allergies, Endocrine: Negative for neck swelling, polydipsia, polyuria, polyphagia, and marked weight changes, Hematologic/Lymphatic: Negative for swollen nodes, abnormal bleeding, and unusual bruising. 11:50 Cardiovascular: Positive for chest pain, of the chest. Exam: 11:50 Constitutional: This is a well developed, well nourished patient who is awake, alert, aron and in no acute distress. Head/Face: Normocephalic, atraumatic. Eyes: Pupils equal round and reactive to light, extra-ocular motions intact. Lids and lashes normal. Conjunctiva and sclera are non-icteric and not injected. Cornea within normal limits. Periorbital areas with no swelling, redness, or edema. ENT: Nares patent. No nasal discharge, no septal abnormalities noted. Tympanic membranes are normal and external auditory canals are clear. Oropharynx with no redness, swelling, or masses, exudates, or evidence of obstruction, uvula midline. Mucous membranes moist. Neck: Trachea midline, no thyromegaly or masses palpated, and no cervical lymphadenopathy. Supple, full range of motion without nuchal rigidity, or vertebral point tenderness. No Meningismus. Chest/axilla: Normal chest wall appearance and motion. Nontender with no deformity. No lesions are appreciated. Cardiovascular: Regular rate and rhythm with a normal S1 and S2. No gallops, murmurs, or rubs. Normal PMI, no JVD. No pulse deficits. Respiratory: Lungs have equal breath sounds bilaterally, clear to auscultation and percussion. No rales, rhonchi or wheezes noted. No increased work of breathing, no retractions or nasal flaring. Abdomen/GI: Soft, non-tender, with normal bowel sounds. No distension or tympany. No guarding or rebound. No evidence of tenderness throughout. Back: No spinal tenderness. No costovertebral tenderness. Full range of motion. Skin: Warm, dry with normal turgor. Normal color with no rashes, no lesions, and no evidence of cellulitis. MS/ Extremity: Pulses equal, no cyanosis. Neurovascular intact. Full, normal range of motion. Neuro: Awake and alert, GCS 15, oriented to person, place, time, and situation. Cranial nerves II-XII grossly intact. Motor strength 5/5 in all extremities. Sensory grossly intact. Cerebellar exam normal. Normal gait. Psych: Awake, alert, with orientation to person, place and time. Behavior, mood, and affect are within normal limits. Vital Signs: 11:36 BP 150 / 60; Pulse 84; Resp 26 S; Temp 98.6(O); Pulse Ox 98% on R/A; Pain 0/10; jl7 12:00 BP 141 / 59; Pulse 83; Resp 16 S; Pulse Ox 98% on R/A; jl7 12:30 BP 150 / 60; Pulse 83; Resp 16 S; Pulse Ox 99% on R/A; jl7 13:35 BP 117 / 51; Pulse 82; Resp 16 S; Pulse Ox 99% on R/A; jl7 14:27 Weight 54.43 kg; iw 14:48 BP 133 / 68; Pulse 78; Resp 18 S; Temp 99(O); Pulse Ox 99% on R/A; Pain 0/10; jl7 MDM: 11:[address] [facility] 11:53 Data reviewed: vital signs, nurses notes, lab test result(s), EKG, radiologic studies, [facility] CT scan, plain films. 04/04 11:50 Order name: Basic Metabolic Panel; Complete Time: 14:[address] [facility] 04/04 11:50 Order name: CBC with Diff; Complete Time: 13:[address] [facility] 04/04 11:50 Order name: LFT's; Complete Time: 14:[address] [facility] 04/04 11:50 Order name: Magnesium; Complete Time: 14:[address] [facility] 04/04 11:50 Order name: NT PRO-BNP; Complete Time: 14:[address] [facility] 04/04 11:50 Order name: PT-INR; Complete Time: 13:[address] [facility] 04/04 11:50 Order name: Troponin (emerg Dept Use Only); Complete Time: 14:[address] [facility] 04/04 11:50 Order name: XRAY Chest (1 view); Complete Time: 13:[address] [facility] 04/04 13:52 Order name: Ptt, Activated jl7 04/04 14:17 Order name: PTT, Activated Partial Thromb; Complete Time: 14:28 [facility] 04/04 11:50 Order name: EKG; Complete Time: 11:[address] [facility] 04/04 11:50 Order name: Cardiac monitoring; Complete Time: 13:[address] [facility] 04/04 11:50 Order name: EKG - Nurse/Tech; Complete Time: 13:[address] [facility] 04/04 11:50 Order name: IV Saline Lock; Complete Time: 13:[address] [facility] 04/04 11:50 Order name: Labs collected and sent; Complete Time: 13:[address] [facility] 04/04 11:50 Order name: O2 Per Protocol; Complete Time: 13:[address] [facility] 04/04 11:50 Order name: O2 Sat Monitoring; Complete Time: 13:[address] [facility] Administered Medications: 13:00 Drug: Aspirin Chewable Tablet 162 mg Route: PO; jl7 15:19 Follow up: Response: No adverse reaction jl7 15:00 Drug: Heparin (OK-Bolus No thrombolytic) - HEParin 60 units/kg {Co-Signature: aa5 [id number] (Sherry Lomax RN).} Route: IVP; Site: right wrist; 15:19 Follow up: Response: No adverse reaction jl7 15:03 Drug: Heparin (OK Drip) 12 units/kg/hr - (HEParin 99985 units, D5W 500 ml) jl7 {Co-Signature: aa5 (Sherry Lomax RN).} Route: IV; Rate: calculated rate; Site: right wrist; 16:05 Follow up: IV Status: Infusion continued upon admission 15:16 Not Given (Duplicate Order): Heparin (OK-Bolus No thrombolytic) - HEParin 60 units/kg jl7 IVP once; Max 5000 units Disposition: 04/04/18 11:56 Hospitalization ordered by Coleman Valladares for Inpatient Admission. Preliminary diagnosis are Chest pain, unspecified, End stage renal disease - on hd, Unspecified combined systolic (congestive) and diastolic (congestive) heart failure. - Bed requested for Telemetry/MedSurg (Inpatient). - Status is Inpatient Admission. jl7 - Condition is Fair. - Problem is new. - Symptoms have improved. UTI on Admission? No Signatures: Dispatcher [employer] EDMT Michael Tamayo MD MD cha Williams, Irene, RN [facility] [place] RN RN jl7 Sherry Lomax RN aa5 Corrections: (The following items were deleted from the chart) 13:26 11:56 Hospitalization Ordered by Coleman Valladares DO for Observation. Preliminary aron diagnosis is Chest pain, unspecified; End stage renal disease - on hd. Bed requested for Telemetry/MedSurg (observation). Status is Observation. Condition is Fair. Problem is new. Symptoms have improved. UTI on Admission? No. aron 13:26 13:26 04/04/2018 11:56 Hospitalization Ordered by Coleman Valladares DO for Observation. aron Preliminary diagnosis is Chest pain, unspecified; End stage renal disease - on hd; Unspecified combined systolic (congestive) and diastolic (congestive) heart failure. Bed requested for Telemetry/MedSurg (observation). Status is Observation. Condition is Fair. Problem is new. Symptoms have improved. UTI on Admission? No. aron 13:38 13:26 04/04/2018 11:56 Hospitalization Ordered by Coleman Valladares DO for Inpatient em1 Admission. Preliminary diagnosis is Chest pain, unspecified; End stage renal disease - on hd; Unspecified combined systolic (congestive) and diastolic (congestive) heart failure. Bed requested for Telemetry/MedSurg (Inpatient). Status is Inpatient Admission. Condition is Fair. Problem is new. Symptoms have improved. UTI on Admission? No. [facility] 16:07 13:38 04/04/2018 11:56 Hospitalization Ordered by Coleman Valladares DO for Inpatient jl7 Admission. Preliminary diagnosis is Chest pain, unspecified; End stage renal disease - on hd; Unspecified combined systolic (congestive) and diastolic (congestive) heart failure. Bed requested for Telemetry/MedSurg (Inpatient). Status is Inpatient Admission. Condition is Fair. Problem is new. Symptoms have improved. UTI on Admission? No. em1
--- NOTE | 2018-04-04 12:03 | EKG ---
Test Date: 2018-04-04 Test Time: 11:28:38 [employer] Set Up Mechanic: KAYLYN MEASUREMENT RESULTS: Intervals: Rate: 84 DE: 218 QRSD: 78 QT: 342 QTc: 404 [place]: P: 88 DE: 218 QRS: 56 T: 136 INTERPRETIVE STATEMENTS: Sinus rhythm with 1st degree AV block Septal infarct, age undetermined Inferior infarct, possibly acute T wave abnormality, consider lateral ischemia ST elevation unchanged from previous ECG Abnormal ECG Compared to ECG 03/23/2018 15:57:34 No significant changes Electronically Signed On 04-04-18 12:02:34 SDV PILOT/NAVIGATOR/DDS OPERATOR by Marcelo Napoles
--- NOTE | 2018-04-04 12:28 | RAD REPORT ---
EXAM DESCRIPTION: RAD - Chest Single View - 04/04/2018 12:20 pm CLINICAL HISTORY: Chest pain after dialysis, recent NE diagnosis COMPARISON: March 23, 2018 TECHNIQUE: AP portable chest image was obtained 1213 hours . FINDINGS: Right-sided pacemaker and left-sided dialysis catheter remain in place. Interstitial and a lveolar opacification is present as a baseline but also increased over the comparison. Small left ple ural effusion is suspected. Heart size is upper normal. Vasculature is prominent. No pneumothorax. No acute bony abnormality seen. No acute aortic findings suspected. IMPRESSION: Mild to moderate CHF/ volume overload pattern.
[2018-04-04 13:11] LABS: Protime INR 1.14
[2018-04-04 13:13] LABS: Absolute Lymphocytes (CBC) 1.2 K/uL (0.7-4.9); Absolute Monocytes 0.9 K/uL (0.1-1.3); Absolute Neutrophil 9.7 K/uL (1.8-8.0); Basophils % 0.8 % (0-1.3); Eosinophils % 3.7 % (0-4.4); Hematocrit 35.2 % (36.0-45.0); MPV 8.9 fL (7.6-11.3); Monocytes % 7.6 % (3.3-12.3)
[2018-04-04 13:34] LABS: Albumin 2.8 g/dL (3.4-5.0); Bilirubin Direct 0.2 mg/dL (0-0.2); Magnesium 2.2 mg/dL (1.8-2.4); Potassium 3.5 mmol/L (3.5-5.1)
[2018-04-04 13:36] LABS: Bilirubin Total 0.5 mg/dL (0.2-1.0); Protein, Total 7.7 g/dL (6.4-8.2)
[2018-04-04] MEDS ORDERED: ASPIRIN 81 MG CHEWABLE TABLET ONE (13:38)
[2018-04-04] MEDS ORDERED: HEPARIN 5000 UNIT/ML 1 ML VIAL ONE (13:38)
[2018-04-04] MEDS ORDERED: HEPARIN/D5W 25,000 UNIT/500 ML BAG IV ONE (13:38)
[2018-04-04 13:39] LABS: Troponin (Emerg Dept Use Only) 0.45 ng/mL (0.0-0.045)
--- NOTE | 2018-04-04 13:53 | P.HP ---
Certification for Inpatient Patient admitted to: Observation With expected LOS: <2 Midnights Patient will require the following post-hospital care: None Practitioner: I am a practitioner with admitting privileges, knowledge of patient current condition, hospital course, and medical plan of care. Services: Services provided to patient in accordance with Admission requirements found in Title 42 Section 412.3 of the Code of Federal Regulations Patient History Date of Service: 04/04/18 Primary Care Provider: Dr. Lema(I am covering); Cardiology-Dr. Page; Nephr.-Dr. Crowder Reason for admission: Chest pain History of Present Illness: 82-year-old female presented to the emergency room with chest pain. Apparently she reported chest pain during dialysis. This has been read recurrent. She further reports that last week she was life flighted to [facility] for PR. She had a heart catheterization done at that time. She was told that she had 2 arteries that had stenosis. Patient with history of 5 stents in the past. Options were addressed with the patient. Patient not a candidate for CABG due to her chronic condition. Medical management was recommended. In the ER patient evaluated. Initial cardiac enzymes was 0.45. This was improve from the last ER visit. CBC CMP reviewed. Chest x-ray showed mild volume overload. BNP elevated. Creatinine 3.01 with a GFR 15. ER discuss case with cardiology. Patient was admitted for observation. When I saw the patient ER, she was without any chest pain. Allergies ramipril [From Altace] Allergy (Unknown, Verified 06/27/17 03:26) Hives/Rash acetaminophen [From Vicodin] Allergy (Verified 02/20/18 20:23) unknown clopidogrel bisulfate [From Plavix] Allergy (Verified 06/27/17 03:26) Hives enalapril maleate [From Vasotec] Allergy (Verified 06/27/17 03:26) Hives hydrocodone [From Vicodin] Allergy (Verified 02/20/18 20:23) unknown morphine Allergy (Verified 06/27/17 03:26) Itching/Hives/Rash propoxyphene napsylate [From Darvocet-N 100] Allergy (Verified 06/27/17 03:26) Hives/Rash simvastatin [From Zocor] Allergy (Verified 06/27/17 03:26) Hives/Rash codeine [Codeine] Adverse Reaction (Mild, Verified 06/27/17 03:26) vomiting rash lorazepam Adverse Reaction (Verified 02/21/18 14:31) Nausea/Vomiting Home medications list reviewed: Yes Home Medications: Atorvastatin Calcium [Lipitor] 80 mg PO BEDTIME 02/20/18 Calcium Acetate [Phoslo] 2 cap PO BID 02/20/18 Carvedilol [Coreg*] 1 tab PO BID 02/20/18 Citalopram Hydrobromide [Citalopram HBr] 1 tab PO DAILY 02/20/18 Clonidine HCl [Catapres] 0.1 mg PO Q12HP PRN 02/20/18 Diphenhydramine [Benadryl*] 25 mg PO Q12HP PRN 02/20/18 Gabapentin 1 cap PO TID 02/20/18 Margarita-Lanta 30 ml PO Q4HP PRN 02/20/18 Insulin -Regular Human [Novolin -R*] See Protocol SQ ACHS 02/20/18 LORazepam [Ativan*] 1 mg PO Q6HP PRN 02/20/18 Latanoprost/Pf [Latanoprost 0.005% Eye Drop] 1 gtt EACH EYE BEDTIME 02/20/18 Lisinopril [Prinivil*] 20 mg PO DAILY 02/20/18 Ondansetron HCl [Zofran] 4 mg PO Q6HP PRN 02/20/18 Prasugrel Hydrochloride [Effient*] 1 tab PO DAILY 02/20/18 Smz./Tmp. [Bactrim Ds 800 MG/160 MG*] 1 tab PO BID 02/20/18 Tramadol HCl [Ultram] 2 tab PO Q4HP PRN 02/20/18 Vancomycin HCl in Dextrose 5 % [Vancomycin 1.25 Gram/250Ml-D5w] 1 bag IV SEECOM 02/20/18 - Past Medical/Surgical History Diabetic: Yes -: Depression -: GERD -: HTN -: End-stage renal disease, on hemodialysis -: History pacemaker -: Diabetes mellitus type 2 -: Hyperlipidemia -: CAD with prior stent -: PVD -: Gangrene to the right great toe -: Prior left BKA -: STENTS IN HEART -: STENT IN KIDNEY -: CARPAL TUNNEL R HAND -: BLADDER SUSPENSION -: Hysterectomy -: Left BKA Psychosocial/ Personal History: Patient currently in rehab - Family History Family History: Reviewed- Non-Contributory - Family History Father Notes: bleeding ulcers Mother -: Heart disease, Hypertension, Stroke Brother -: Heart disease, Diabetes, Stroke, Cancer Notes: esphogeal cancer Sister -: Heart disease, Hypertension, Diabetes - Social History Smoking Status: Never smoker Alcohol use: Yes CD- Drugs: No Caffeine use: Yes Place of Residence: [facility] Review of Systems General: As per HPI Eyes: Unremarkable ENT: Unremarkable Respiratory: Unremarkable Cardiovascular: Chest Pain, As per HPI Gastrointestinal: Unremarkable Genitourinary: Unremarkable Musculoskeletal: Unremarkable Integumentary: Unremarkable Neurological: Unremarkable Lymphatics: Unremarkable Physical Examination - Physical Exam General: Alert, In no apparent distress, Oriented x3, Cooperative HEENT: Atraumatic, Normocephalic, Mucous membr. moist/pink Neck: Supple Respiratory: Clear to auscultation bilaterally, Normal air movement Cardiovascular: Normal pulses, Regular rate/rhythm Gastrointestinal: Normal bowel sounds, Soft and benign, Non-distended, No tenderness, No masses, No rebound, No guarding Musculoskeletal: No erythema, No tenderness, No warmth Integumentary: No erythema, No warmth, Other (Gangrene to the right great toe) Neurological: Normal speech, Normal strength at 5/5 x4 extr, Normal tone, Normal affect Assessment and Plan - Plan Impression: Chest pain with recent PR status post heart catheterization showing significant disease, patient not a candidate for CABG due to multiple medical problems End-stage renal disease on hemodialysis Hypertension Diabetes mellitus type 2 Depression GERD 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 Patient will be admitted for observation. Will continue with medical treatment including aspirin, Effient, carvedilol. Will try to obtain records from [facility] for recent heart catheterization. Cardiology to review. Will continue with medical management and monitor. Anticipate discharge tomorrow if stable. Advanced directives address in detail with medical power of assistant district attorney. Patient is DNR. I am covering for Dr. Lema at this time. End-stage renal disease on hemodialysis: Nephrology consulted. Dialysis to continue Sunday, and Saturdays. Hypertension: Continue with carvedilol and lisinopril. Medication may need to be adjusted. Diabetes mellitus type 2: Continue sliding scale. Depression: Continue with her medication of Celexa and lorazepam. GERD: Continue with medication. 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 Currently stable this time. History left below-knee amputation: Stable. Diabetic neuropathy: Continue with her medication of gabapentin. Discharge Plan: [facility] Plan to discharge in: 24 Hours - Advance Directives Does patient have a Living Will: No Does patient have a Durable POA for Healthcare: Yes - Code Status/Comfort Care Code Status Assessed: Yes (Patient is DNR) Time Spent Managing Pts Care (In Minutes): 55
[2018-04-04 16:11] VITALS: BMI 22.3
[2018-04-04] MEDS ORDERED: LORAZEPAM 0.5 MG TABLET PO PRN (16:11)
[2018-04-04] MEDS ORDERED: ONDANSETRON 4 MG/2 ML VIAL IV PRN (16:11)
[2018-04-04] MEDS: INSULIN -REGULAR HUMAN 50 UNIT/0.5 ML ML SQ SCH ×2 (16:30→21:00)
[2018-04-04 17:01] LABS: CKMB Creatine Kinase MB 2.3 ng/mL (0.3-3.6); Troponin I 0.43 ng/mL (0.0-0.045)
[2018-04-04] MEDS: GABAPENTIN 300 MG CAP PO SCH ×2 (17:48→21:30)
[2018-04-04] MEDS: CARVEDILOL 3.125 MG TAB PO SCH (17:48)
[2018-04-04] MEDS: TRAMADOL HCL 50 MG TAB PO PRN (18:55)
[2018-04-05 01:37] LABS: CKMB Creatine Kinase MB 2.2 ng/mL (0.3-3.6); Troponin I 0.39 ng/mL (0.0-0.045)
--- NOTE | 2018-04-05 02:52 | CON ---
Date of Consultation: 04/04/2018 Reason For Consultation: Elevated BUN and creatinine, hypertension, end-stage renal disease. History Of Present Illness: This is a pleasant 82-year-old female, well known to me from the dialys s center with significant past medical history of coronary artery disease, recent admission to the [facility] with non-ST elevation NM, pericardial effusion, hypertension, hyperlipidemia, peripheral vascu lar disease status post below-knee amputation. The patient came from the dialysis after chest pain o n the machine, found to have non-ST elevation. The patient denied any nausea, any vomiting. After r esting chest pain stopped, she was found to have mild elevation in cardiac enzyme. Past Medical History: 1.Coronary artery disease status post non-ST elevation NM complicated with congestive heart failure. 2.Peripheral vascular disease status post below-knee amputation. 3.Diabetes complicated with neuropathy and nephropathy. 4.Hypertension. 5.Pericardial effusion. 6.COPD. Past Surgical History: Includes AV fistula, below-knee amputation, cardiac cath. Home Medications: 1.Epogen. 2.Carvedilol 3.25. 3.Lisinopril. 4.Clonidine. 5.Pantoprazole. 6.Hydrocodone. Family History: Positive for diabetes and hypertension. Allergies: TO RAMIPRIL, TYLENOL, , PLAVIX. Social History: [place]. Denies smoking. Denies drinking. Denies drugs abuse. Review of Systems: Head and Neck: No red eye. No ear pain. GI: No nausea. No vomiting. : No polyuria. No dysuria. No hematuria. 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 Respiratory: No shortness of breath. Cardiovascular: Has chest pain. Endocrine: No polydipsia. Skin: No rash. Neuro: Has neuropathy. Musculoskeletal: Has leg pain. Physical Examination: Vital Signs: Blood pressure 125/58, pulse of 75, afebrile. Chest: Clear to auscultation. Heart: S1, S2. Systolic murmur. Abdomen: Soft, nontender. Extremities: Below-knee amputation. Neuro: Alert and oriented x3. Nonfocal. Laboratory Data: WBC 12.4, H and H 11.2/35.2, platelets of 360. Sodium 134, potassium 3.5, bicarb 2 4, BUN 35, creatinine 3, calcium 9.1. Assessment And Plan: 1.End-stage renal disease, hemodynamically stable. No hyperkalemia or acidosis. Just on dialysis t shlomo. We will continue the patient on dialysis TTS. I had long discussion with the patient and the daughter that given the recurrent chest pain on the dialysis, the patient is going to need to have lo w blood flow on the dialysis and that is going to be on the expense of increasing her time. The vaughn ent verbalized understanding and agreed. I spoke to the dialysis center. We changed her prescriptio n to 3-1/2 hours and dropped her blood flow to 250, maximum 300. 2.Hypertension controlled, optimal. Continue current medication. 3.Secondary hyperparathyroid, stable. We will continue to monitor. 4.Anemia of chronic kidney disease. Continue Epogen. 5.Coronary artery disease status post recent non-ST elevation myocardial infarction. Currently as I mentioned, we will adjust the dialysis treatment. We will follow up with Cardiology. Thank you Dr. Valladares for allowing us to participate in the care of your patient. JOHNNY Voice ID: [id number] Report ID: [id number]
[2018-04-05] MEDS: TRAMADOL HCL 50 MG TAB PO PRN (02:58)
[2018-04-05] MEDS: CARVEDILOL 3.125 MG TAB PO SCH ×2 (05:44→17:40)
[2018-04-05 06:19] LABS: Absolute Lymphocytes (CBC) 1.8 K/uL (0.7-4.9); Absolute Monocytes 1.1 K/uL (0.1-1.3); Absolute Neutrophil 7.2 K/uL (1.8-8.0); Eosinophils % 4.1 % (0-4.4); Hematocrit 32.5 % (36.0-45.0); Lymphocytes % 16.9 % (15.3-44.8); MPV 9.2 fL (7.6-11.3); Monocytes % 10.1 % (3.3-12.3); RBC Red Blood Cell Count 3.67 M/uL (3.86-4.86)
[2018-04-05 06:46] LABS: Magnesium 2.2 mg/dL (1.8-2.4); Potassium 4.2 mmol/L (3.5-5.1)
[2018-04-05] MEDS ORDERED: PANTOPRAZOLE 40MG TABLET PO SCH (07:30)
[2018-04-05] MEDS: INSULIN -REGULAR HUMAN 50 UNIT/0.5 ML ML SQ SCH ×4 (07:30→20:57)
[2018-04-05] MEDS: GABAPENTIN 300 MG CAP PO SCH ×3 (08:52→20:54)
[2018-04-05] MEDS ORDERED: LISINOPRIL 20 MG TAB PO SCH (09:00)
[2018-04-05] MEDS ORDERED: CITALOPRAM 10 MG TABLET PO SCH (09:00)
[2018-04-05] MEDS ORDERED: PRASUGREL (EFFIENT) 10 MG TAB PO SCH (09:00)
[2018-04-05] MEDS ORDERED: NITROGLYCERIN 0.4 MG/TAB SL PRN (09:15)
--- NOTE | 2018-04-05 10:52 | CON ---
CARDIOLOGY CONSULT Chief Complaint: Chest pain. History Of Present Illness: Ms. Carroll is 82. She is a hemodialysis patient and she gets frequent spel ls of angina. She has had some stents in the past, but a few weeks ago, she underwent a cardiac cath and the doctors at [facility] that did it told her that her arteries were impossible to do any stent ing or bypass surgery. They suggested then that she think about becoming a do not resuscitate patien t. She has done that. She came to the hospital because of chest pain. She took a nitroglycerin, it got better. She took [address] to the hospital, it improved some more and pre sently, she is asymptomatic. Her troponins are not normal, but they are all about the same 0.45, 0.4 3, 0.39. Medications: The patient's outpatient medications have been loperamide, nitroglycerin, Zofran, trama dol, gabapentin, metoprolol, citalopram, aspirin, Brilinta, Aranesp, clonidine, insulin, nystatin cre am, lisinopril, prasugrel, PhosLo, latanoprost eye drops, atorvastatin, and magnesium oxide. Physical Examination: General: The patient looks elderly. She is not in distress right now, alert, able to have a convers ation, a little bit confused. Memory may be impaired. Lungs: Clear. Heart: S4 gallop. Grade 2/6 systolic murmur. An echocardiogram will be done later today. Impression: The patient should not be both on Brilinta and prasugrel, one or the other. Prasugrel i s being given here, but we need to have clear instructions to her caregivers not to get both. I thin k, we should add Ranexa to the regimen and make sure she has nitroglycerin to use at home and that is about as good as we can do with Ms. Carroll. Her heart disease and renal disease are both beyond making any improvements other than medication aron KIM/MICHAEL Voice ID: [id number] Report ID: [id number]
--- NOTE | 2018-04-05 14:34 | P.DS ---
Admission Date: 04/04/18 Discharge Date: 04/05/18 Primary Care Provider: Dr. Lema(I am covering); Cardiology-Dr. Page; Nephr.-Dr. Crowder Disposition: TRANSFER TO SNF - MEDICAL Discharge Condition: GOOD Reason for Admission: Chest pain Consultations: Cardiology-Dr. Napoles Nephrology-Dr. 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 Apparently she reported chest pain during dialysis. This has been read recurrent. She further reports that last week she was life flighted to [facility] for NV. She had a heart catheterization done at that time. She was told that she had 2 arteries that had stenosis. Patient with history of 5 stents in the past. Options were addressed with the patient. Patient not a candidate for CABG due to her chronic condition. Medical management was recommended. In the ER patient evaluated. Initial cardiac enzymes was 0.45. This was improve from the last ER visit. CBC CMP reviewed. Chest x-ray showed mild volume overload. BNP elevated. Creatinine 3.01 with a GFR 15. ER discuss case with cardiology. Patient was admitted for observation. When I saw the patient ER, she was without any chest pain. Hospital Course: Patient presented with chest pain. Patient with recent NV status post heart catheterization at a facility in [place]. It was determined that the patient was not a candidate for CABG due to her multiple medical problems. Patient understood this. Patient on medical management. Patient was evaluated by cardiology. No need for further evaluation. Pain controlled. Cardiology noted that her medications included Brilinta and Effient. He recommended that she only be on 1 of the medications. At discharge she will continue with Effient 10 mg daily and aspirin 81 mg daily. Brilinta will be discontinued. Patient will also be started on Ranexa 500 mg twice daily. Patient will also use nitroglycerin tablets as needed for chest pain. Patient may follow up with cardiology in 1-2 weeks to follow up this hospitalization. Advanced directives address in detail. Patient is DNR. Patient will return to nursing facility for continued rehabilitation. Patient has end-stage renal disease on hemodialysis. Nephrology consulted. Patient will continue with dialysis on Tuesdays, and Saturdays. Patient will continue with PhosLo 667 mg 1 pill twice daily. Patient has hypertension. At discharge she will continue with lisinopril 20 mg daily and metoprolol 25 mg 1 pill twice daily. Recommendation is to maintain blood pressures less 150/80. Further adjustment can be done by her PCP. Patient has diabetes type 2. Patient will continue with insulin sliding scale. Recommendation is to maintain blood sugars less 140 fasting and less than 200 after meals. Further adjustment can her PCP. Patient has hyperlipidemia. Patient will continue with Lipitor 40 mg daily. Patient has depression. Patient will continue with Celexa 20 mg daily. Patient with diabetic neuropathy. Patient will continue with gabapentin 300 mg 3 times a day as needed for pain. Patient may also use tramadol 50 mg 3 times a day as needed for pain. Patient with chronic gangrene to the right great toe. Patient has received IV antibiotics in the past. Patient can continue with wound care. Vital Signs/Physical Exam: Temp Pulse Resp BP Pulse Ox 97.5 F 99 H 20 121/56 L 99 04/05/18 08:00 04/05/18 08:52 04/05/18 08:00 04/05/18 08:52 04/05/18 08:00 General: Alert, In no apparent distress, Oriented x3, Cooperative HEENT: Atraumatic Neck: Supple Respiratory: Clear to auscultation bilaterally, Normal air movement Cardiovascular: Normal pulses, Regular rate/rhythm Gastrointestinal: Normal bowel sounds, Soft and benign, Non-distended, No masses , No rebound, No guarding Musculoskeletal: No erythema, No tenderness, No warmth Integumentary: No tenderness/swelling, No erythema, No warmth, No cyanosis Neurological: Normal speech, Normal strength at 5/5 x4 extr, Normal tone, Normal affect Laboratory Data at Discharge: WBC 10.6 K/uL (4.3-10.9) D 04/05/18 05:23 Hgb 10.4 g/dL (12.0-15.0) L 04/05/18 05:23 Hct 32.5 % (36.0-45.0) L 04/05/18 05:23 Plt Count 362 K/uL (152-406) 04/05/18 05:23 PT 13.5 SECONDS (9.5-12.5) H 04/04/18 12:52 INR 1.14 04/04/18 12:52 APTT 35.5 SECONDS (24.3-36.9) 04/04/18 12:52 Sodium 134 mmol/L (136-145) L 04/05/18 05:23 Potassium 4.2 mmol/L (3.5-5.1) 04/05/18 05:23 BUN 43 mg/dL (7-18) H 04/05/18 05:23 Creatinine 3.91 mg/dL (0.55-1.3) H 04/05/18 05:23 Glucose 82 mg/dL (74-106) 04/05/18 05:23 Magnesium 2.2 mg/dL (1.8-2.4) 04/05/18 05:23 Total Bilirubin 0.5 mg/dL (0.2-1.0) 04/04/18 12:52 AST 25 U/L (15-37) 04/04/18 12:52 ALT 43 U/L (12-78) 04/04/18 12:52 Alkaline Phosphatase 118 U/L (45-117) H 04/04/18 12:52 Troponin I 0.39 ng/mL (0.0-0.045) H 04/05/18 00:53 Triglycerides 112 mg/dL (<150) 04/05/18 05:23 Cholesterol 102 mg/dL (<200) 04/05/18 05:23 HDL Cholesterol 39 mg/dL (40-60) L 04/05/18 05:23 Cholesterol/HDL Ratio 2.62 04/05/18 05:23 Home Medications: Acetaminophen 2 tab PO Q6H PRN 04/04/18 Aspirin 1 tab PO DAILY 04/04/18 Atorvastatin Calcium [Lipitor] 40 mg PO BEDTIME 04/04/18 Benzonatate [Tessalon Perle*] 100 mg PO Q6H PRN 04/04/18 Calcium Acetate [Phoslo] 667 mg PO BID 04/04/18 Citalopram Hydrobromide [Citalopram HBr] 20 mg PO BID 04/04/18 Darbepoetin Lisandro in Polysorbat [Aranesp] 40 mcg SQ SEECOM 04/04/18 Diphenhydramine HCl [Benadryl Allergy] 25 mg PO Q12H PRN 04/04/18 Folic Acid/Vit B Complex and C [Folbee Plus Tablet] 5 mg PO DAILY 04/04/18 Gabapentin 300 mg PO TID 04/04/18 Insulin -Regular Human [Novolin -R*] See Protocol SQ ACHS 04/04/18 Latanoprost/Pf [Latanoprost 0.005% Eye Drop] 1 drop OP BEDTIME 04/04/18 Lisinopril [Prinivil*] 20 mg PO DAILY 04/04/18 Loperamide [Imodium*] 2 mg PO Q6HP PRN 04/04/18 Mag Hydroxide 8% [Milk Of Magnesia*] 30 ml PO Q24H PRN 04/04/18 Metoprolol Tartrate 25 mg PO BID 04/04/18 Nystatin Cream [Mycostatin 100MU/Gm Cream*] 1 appl TOP BID 04/04/18 Ondansetron HCl [Zofran] 4 mg PO Q8H PRN 04/04/18 Prasugrel Hydrochloride [Effient*] 10 mg PO DAILY 04/04/18 Tramadol HCl [Ultram] 50 mg PO Q6H PRN 04/04/18 cloNIDine HCl [Catapres*] 0.1 mg PO Q12H PRN 04/04/18 Nitroglycerin 0.4 mg SL SEECOM PRN #30 tab.subl 04/05/18 Ranolazine [Ranexa] 500 mg PO BID #60 tab.er.12h 04/05/18 New Medications: Nitroglycerin 0.4 mg SL SEECOM PRN #30 tab.subl PRN Reason: Chest Pain Ranolazine [Ranexa] 500 mg PO BID #60 tab.er.12h Patient Discharge Instructions: 1. Patient will return to skilled facility to continue rehabilitation. 2. Patient presented with chest pain. Patient with recent NV status post heart catheterization at a facility in [place]. It was determined that the patient was not a candidate for CABG due to her multiple medical problems. Patient understood this. Patient on medical management. Patient was evaluated by cardiology. No need for further evaluation. Pain controlled. Cardiology noted that her medications included Brilinta and Effient. He recommended that she only be on 1 of the medications. At discharge she will continue with Effient 10 mg daily and aspirin 81 mg daily. Brilinta will be discontinued. Patient will also be started on Ranexa 500 mg twice daily. Patient will also use nitroglycerin tablets as needed for chest pain. Patient may follow up with cardiology in 1-2 weeks to follow up this hospitalization. Advanced directives address in detail. Patient is DNR. Patient will return to nursing facility for continued rehabilitation. 3. Patient has end-stage renal disease on hemodialysis. Nephrology consulted. Patient will continue with dialysis on Tuesdays, and Saturdays. Patient will continue with PhosLo 667 mg 1 pill twice daily. 4. Patient has hypertension. At discharge she will continue with lisinopril 20 mg daily and metoprolol 25 mg 1 pill twice daily. Recommendation is to maintain blood pressures less 150/80. Further adjustment can be done by her PCP. 5. Patient has diabetes type 2. Patient will continue with insulin sliding scale. Recommendation is to maintain blood sugars less 140 fasting and less than 200 after meals. Further adjustment can her PCP. 6. Patient has hyperlipidemia. Patient will continue with Lipitor 40 mg daily. 7. Patient has depression. Patient will continue with Celexa 20 mg daily. 8. Patient with diabetic neuropathy. Patient will continue with gabapentin 300 mg 3 times a day as needed for pain. Patient may also use tramadol 50 mg 3 times a day as needed for pain. 9. Patient with chronic gangrene to the right great toe. Patient has received IV antibiotics in the past. Patient can continue with wound care. Diet: AHA Activity: Fall precautions Time spent managing pt's care (in minutes): 55
--- NOTE | 2018-04-05 14:37 | ECHO ---
HEIGHT: 5 ft 3 in WEIGHT: 126 lb 0 oz DATE OF STUDY: 04/05/[address]: Coleman Valladares DO 2-DIMENSIONAL: YES M.MODE: YES DOPPLER: YES COLOR FLOW: YES TDS: PORTABLE: DEFINITY: BUBBLE STUDY: DIAGNOSIS: CHEST PAIN CARDIAC HISTORY: CATHERIZATION: YES SURGERY: NO PROSTHETIC VALVE: NO PACEMAKER: YES MEASUREMENTS (cm) DIASTOLIC (NORMALS) SYSTOLIC (NORMALS) IVSd 1.0 (0.6-1.2) LA Diam 3.8 (1.9-4.0) LVEF 69% LVIDd 3.6 (3.5-5.7) LVIDs 2.2 (2.0-3.5) %FS 38% LVPWd 1.0 (0.6-1.2) Ao Diam 3.0 (2.0-3.7) 2 DIMENSIONAL ASSESSMENT: RIGHT ATRIUM: NORMAL LEFT ATRIUM: NORMAL RIGHT VENTRICLE: NORMAL LEFT VENTRICLE: NORMAL TRICUSPID VALVE: NORMAL MITRAL VALVE: MITRAL ANNULAR CALCIFICATION PULMONIC VALVE: NORMAL AORTIC VALVE: SCLEROSIS PERICARDIAL EFFUSION: NONE AORTIC ROOT: NORMAL LEFT VENTRICULAR WALL MOTION: NORMAL DOPPLER/COLOR FLOW: MILD AORTIC, MITRAL AND TRICUSPID REGURGITATION. NORMAL RIGHT VENTRICULAR SYSTOLIC PRESSURE. COMMENTS: NORMAL LEFT VENTRICULAR EJECTION FRACTION. MITRAL ANNULAR CALCIFICATION. AORTIC SCLEROSIS WITH NO AORTIC STENOSIS. MILD AORTIC, MITRAL & TRICUSPID REGURGITATION. TECHNOLOGIST: SENAIT BETH
[2018-04-05 19:45] VITALS: O2SAT 98
[2018-04-05 20:13] VITALS: BP 158/60; TEMP 97.7
--- NOTE | 2018-04-06 00:09 | P.PN ---
Subjective Date of Service: 04/05/18 Primary Care Provider: Dr. Lema(I am covering); Cardiology-Dr. Page; Nephr.-Dr. Crowder Chief Complaint: Chest pain Subjective: Improving Improving cleared for discharge from nephrology point of view Can resume HD as an OP tomorrow Physical Examination - Vital Signs Temperature: 97.7 F Blood Pressure: 158/60 Pulse: 53 Respirations: 18 Pulse Ox (%): 100 - Physical Exam General: In no apparent distress, Oriented x3 HEENT: Atraumatic Neck: Supple, Without JVD or thyroid abnormality Respiratory: Clear to auscultation bilaterally, Normal air movement Cardiovascular: No edema, Regular rate/rhythm, Normal S1 S2 Assessment And Plan - Current Problems (Diagnosis) (1) ESRD on hemodialysis Onset Date: 06/28/17 Status: Chronic - Plan End-stage renal disease, hemodynamically stable. Hypertension controlled, Continue current medication. Anemia of chronic kidney disease. Continue Epogen. CAD Cardiology input appreciated
== END 2018-04-05 22:00 ==
LOC: ER 11:24 → ERHOLD 12:40 → 4TH 15:27
PROVIDERS: ADMIT Family Medicine; ATTEND Family Medicine
DX: R07.9 Chest pain, unspecified (principal); I12.0 Hypertensive chronic kidney disease with stage 5 chronic kidney disease or end stage renal disease; E11.22 Type 2 diabetes mellitus with diabetic chronic kidney disease; N18.6 End stage renal disease; Z99.2 Dependence on renal dialysis; F32.9 Major depressive disorder, single episode, unspecified; K21.9 Gastro-esophageal reflux disease without esophagitis; E11.52 Type 2 diabetes mellitus with diabetic peripheral angiopathy with gangrene; I96 Gangrene, not elsewhere classified; Z89.512 Acquired absence of left leg below knee; E11.40 Type 2 diabetes mellitus with diabetic neuropathy, unspecified; I25.2 Old myocardial infarction; Z66 Do not resuscitate
CPT/HCPCS: 36415; 71045; 80048 ×2; 80061; 80076; 82550 ×2; 82553 ×2; 82962 ×6; 83735 ×2; 83880; 84484 ×3; 85025 ×2; 85610; 85730; 87070; 87077; 87186; 87205; 93005; 93306; 96365; 99285; G0378 ×2; J1644

== ENCOUNTER 2018-04-08 00:11 | Observation (INO) | payer OTHER ==
--- OUTSIDE RECORDS SUMMARY | 2018-04-08 00:14 | XMS REPORT | Clinical Summary ---
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); 03/11/2018 Stanton Ronquillo Anemia, unspecified type MD Shanika Purvis Thuyen T., MD 02/25/2018 Intake Access N/A after 04/07/2017 Family History Medical History Relation Name Comments [...] Taken Blood Pressure 150/86 03/11/2018 7:50 PM [facility] Pulse 84 03/11/2018 7:50 PM [facility] Temperature 36.1 C (97 F) 03/11/2018 7:50 PM [facility] Respiratory Rate 14 03/11/2018 7:50 PM [facility] Oxygen Saturation 96% 03/11/2018 7:50 PM [facility] Inhaled Oxygen Concentration - - Weight 57.7 kg (127 lb 2 oz) 03/08/2018 7:00 AM [facility] Height 160 cm (5' 3") 03/07/2018 12:36 PM [facility] Body Mass Index 22.52 03/08/2018 7:00 AM [facility] Plan of Treatment Health Maintenance Due Date Last Done Comments SHINGLES VACCINES (1 of 2) 1986 PNEUMOCOCCAL POLYSACCHARIDE VACCINE AGE 65 AND OVER 2001 PNEUMOCOCCAL-13 2001 INFLUENZA VACCINE 10/24/2017 Implants Implanted Type Area Tin Roofer Device Shelf Model / Identifier Expiration Serial / Date Lot Graft Vasclr Acuseal 40cm 6mm - [id number] - [id number] Vascular N/A: N/A [employer] 05/19/2019 [id number] / Implanted: Qty: 1 on 11/08/2016 by Herman Fraga MD Graft [id number] / [id number] Patch Cvs For Vasclr 0.5mm 1x9cm Acusemi - [id number] - [id number] Vascular N/ A: N/A [employer]ORE 01/09/2021 [id number] / Implanted: Qty: 1 on 03/07/2018 by Herman Fraga MD Graft [id number] / [id number] Procedures Procedure Name Priority Date/Time Associated Comments Diagnosis POC GLUCOSE Routine 03/11/2018 5:03 Results for this PM [facility] procedure are in the results section. POC GLUCOSE Routine 03/11/2018 1:26 Results for this PM [facility] procedure are in the results section. HC COMPLETE BLD COUNT Routine 03/11/2018 1:19 Results for this W/AUTO DIFF PM [facility] procedure are in the results section. ESTIMATED GFR Routine 03/11/2018 1:14 Results for this PM [facility] procedure are in the results section. PHOSPHORUS LEVEL Routine 03/11/2018 1:14 Results for this PM [facility] procedure are in the results section. BASIC METABOLIC PANEL Routine 03/11/2018 1:14 Results for this PM [facility] procedure are in the results section. POC GLUCOSE Routine 03/11/2018 11:37 Results for this AM [facility] procedure are in the results section. HEMODIALYSIS Routine 03/11/2018 10:07 AM [facility] POC GLUCOSE Routine 03/11/2018 7:44 Results for this AM [facility] procedure are in the results section. POC GLUCOSE Routine 03/10/2018 8:59 Results for this PM [facility] procedure are in the results section. POC GLUCOSE Routine 03/10/2018 5:21 Results for this PM [facility] [employer] procedure are in the results section. POC GLUCOSE Routine 03/10/2018 12:26 Results for this PM [facility] procedure are in the results section. POC GLUCOSE Routine 03/10/2018 7:56 Results for this AM [facility] procedure are in the results section. POC GLUCOSE Routine 03/09/2018 10:08 Results for this PM [facility] procedure are in the results section. POC GLUCOSE Routine 03/09/2018 6:35 Results for this PM [facility] procedure are in the results section. POC GLUCOSE Routine 03/09/2018 5:00 Results for this PM [facility] procedure are in the results section. POC GLUCOSE Routine 03/09/2018 11:51 Results for this AM [facility] procedure are in the results section. HEMODIALYSIS Routine 03/09/2018 10:41 AM [facility] ECHOCARDIOGRAM 2D Routine 03/09/2018 9:01 Results for this COMPLETE W MMODE AM [facility] procedure are in SPECTRAL COLOR DOPPLER the results (57315) section. POC GLUCOSE Routine 03/09/2018 7:42 Results for this AM [facility] procedure are in the results section. HC COMPLETE BLD COUNT Routine 03/09/2018 5:00 Results for this W/AUTO DIFF AM [facility] procedure are in the results section. ESTIMATED GFR Routine 03/09/2018 4:00 Results for this AM [facility] procedure are in the results section. PHOSPHORUS LEVEL Routine 03/09/2018 4:00 Results for this AM [facility] procedure are in the results section. BASIC METABOLIC PANEL Routine 03/09/2018 4:00 Results for this AM [facility] procedure are in the results section. POC GLUCOSE Routine 03/08/2018 10:26 Results for this PM [facility] procedure are in the results section. POC GLUCOSE Routine 03/08/2018 9:24 Results for this PM [facility] procedure are in the results section. TRANSFUSE RED BLOOD Routine 03/08/2018 9:05 CELLS PM [facility] TRANSFUSE RED BLOOD Routine 03/08/2018 7:49 CELLS PM [facility] HEMODIALYSIS Routine 03/08/2018 5:53 PM [facility] POC GLUCOSE Routine 03/08/2018 5:04 Results for this PM [facility] procedure are in the results section. POC GLUCOSE Routine 03/08/2018 3:15 Results for this PM [facility] procedure are in the results section. IR TUNNELED DIALYSIS Routine 03/08/2018 2:53 Results for this CATHETER PLACEMENT PM [facility] procedure are in the results section. POC GLUCOSE Routine 03/08/2018 11:17 Results for this AM [facility] procedure are in the results section. PREPARE RBC Timed 03/08/2018 10:58 Results for this AM [facility] procedure are in the results section. TYPE AND SCREEN Timed 03/08/2018 10:58 Results for this AM [facility] procedure are in the results section. POC GLUCOSE Routine 03/08/2018 7:17 Results for this AM [facility] procedure are in the results section. SMEAR REVIEW Routine 03/08/2018 4:37 Results for this AM [facility] procedure are in the results section. HC COMPLETE BLD COUNT Routine 03/08/2018 4:37 Results for this W/AUTO DIFF AM [facility] procedure are in the results section. ESTIMATED GFR Routine 03/08/2018 4:00 Results for this AM [facility] procedure are in the results section. PHOSPHORUS LEVEL Routine 03/08/2018 4:00 Results for this AM [facility] procedure are in the results section. BASIC METABOLIC PANEL Routine 03/08/2018 4:00 Results for this AM [facility] procedure are in the results section. POC GLUCOSE Routine 03/07/2018 9:55 Results for this PM [facility] procedure are in the results section. POC GLUCOSE Routine 03/07/2018 6:15 Results for this PM [facility] procedure are in the results section. POC GLUCOSE Routine 03/07/2018 4:32 Results for this PM [facility] procedure are in the results section. POC GLUCOSE Routine 03/07/2018 2:32 Results for this PM [facility] procedure are in the results section. ID AN ELECTIVE Routine 03/07/2018 1:32 ENDOTRACHEAL AIRWAY PM [facility] Procedure Note - Gael Coffman MD - 03/07/2018 1:32 PM [facility] ANESTHESIA INTUBATION Performed by: Gael Coffman MD [...] 1 THROMBECTOMY, GRAFT, AV 03/07/2018 1:10 PM [facility] AV graft malfunction, initial encounter ([facility]) Case Notes C-ARM, R/S PER RIYA 03/06 K[facility] Special Needs C-ARM SODIUM LEVEL, SYRINGE STAT 03/07/2018 12:40 PM Results for this [facility] procedure are in the results section. POTASSIUM, SYRINGE STAT 03/07/2018 12:40 PM Results for this [facility] procedure are in the results section. HEMOGLOBIN, SYRINGE STAT 03/07/2018 12:40 PM Results for this [facility] procedure are in the results section. GLUCOSE LEVEL, SYRINGE STAT 03/07/2018 12:40 PM Results for this [facility] procedure are in the results section. HEMODIALYSIS Routine 03/07/2018 12:22 PM [facility] POC GLUCOSE Routine 03/07/2018 11:13 AM Results for this [facility] procedure are in the results section. POC GLUCOSE Routine 03/07/2018 7:46 AM Results for this [facility] procedure are in the results section. POC GLUCOSE Routine 03/07/2018 5:13 AM Results for this [facility] procedure are in the results section. POC GLUCOSE Routine 03/07/2018 1:35 AM Results for this [facility] procedure are in the results section. POC GLUCOSE Routine 03/06/2018 9:23 PM Results for this [facility] procedure are in the results section. POC GLUCOSE Routine 03/06/2018 4:05 PM Results for this [facility] procedure are in the results section. POC GLUCOSE Routine 03/06/2018 12:51 PM Results for this [facility] [employer] procedure are in the results section. HEMODIALYSIS Routine 03/06/2018 12:08 PM [facility] POC GLUCOSE Routine 03/06/2018 7:30 AM Results for this [facility] procedure are in the results section. CLOSTRIDIUM DIFFICILE TOXIN Routine 03/06/2018 6:20 AM Results for this [facility] procedure are in the results section. HC COMPLETE BLD COUNT Routine 03/06/2018 4:20 AM Results for this W/AUTO DIFF [facility] procedure are in the results section. ESTIMATED GFR Routine 03/06/2018 4:00 AM Results for this [facility] procedure are in the results section. PROTHROMBIN TIME WITH INR Routine 03/06/2018 4:00 AM Results for this [facility] procedure are in the results section. PHOSPHORUS LEVEL Routine 03/06/2018 4:00 AM Results for this [facility] procedure are in the results section. BASIC METABOLIC PANEL Routine 03/06/2018 4:00 AM Results for this [facility] procedure are in the results section. POC GLUCOSE Routine 03/05/2018 10:56 PM Results for this [facility] procedure are in the results section. POC GLUCOSE Routine 03/05/2018 5:37 PM Results for this [facility] procedure are in the results section. POC GLUCOSE Routine 03/05/2018 12:11 PM Results for this [facility] procedure are in the results section. TROPONIN Timed 03/05/2018 8:00 AM Results for this [facility] procedure are in the results section. POC GLUCOSE Routine 03/05/2018 7:27 AM Results for this [facility] [facility] procedure are in the results section. ESTIMATED GFR Routine 03/05/2018 4:15 AM Results for this [facility] procedure are in the results section. PROTHROMBIN TIME WITH INR Routine 03/05/2018 4:15 AM Results for this [facility] procedure are in the results section. HC COMPLETE BLD COUNT Routine 03/05/2018 4:15 AM Results for this W/AUTO DIFF [facility] procedure are in the results section. PHOSPHORUS LEVEL Routine 03/05/2018 4:15 AM Results for this [facility] procedure are in the results section. MAGNESIUM LEVEL Routine 03/05/2018 4:15 AM Results for this [facility] procedure are in the results section. BASIC METABOLIC PANEL Routine 03/05/2018 4:15 AM Results for this [facility] procedure are in the results section. TROPONIN Timed 03/05/2018 4:15 AM Results for this [facility] procedure are in the results section. POC GLUCOSE Routine 03/04/2018 9:07 PM Results for this [facility] procedure are in the results section. XR CHEST 1 VW PORTABLE STAT 03/04/2018 7:03 PM Results for this [facility] procedure are in the results section. TYPE AND SCREEN Routine 03/04/2018 6:09 PM Results for this [facility] procedure are in the results section. POC GLUCOSE Routine 03/04/2018 5:58 PM Results for this [facility] procedure are in the results section. TROPONIN Timed 03/04/2018 4:00 PM Results for this [facility] procedure are in the results section. TROPONIN Routine 03/04/2018 2:17 PM Results for this [facility] procedure are in the results section. ECG 12-LEAD Routine 03/04/2018 1:48 PM Results for this [facility] procedure are in the results section. POC GLUCOSE Routine 03/04/2018 1:39 PM Results for this [facility] procedure are in the results section. POC GLUCOSE Routine 03/04/2018 11:53 AM Results for this [facility] procedure are in the results section. US DUPLEX HEMODIALYSIS AVG STAT 03/04/2018 9:20 AM Results for this AVF ACCESS [facility] procedure are in the results section. HEMODIALYSIS Routine 03/04/2018 9:05 AM [facility] POC GLUCOSE Routine 03/04/2018 7:47 AM Results for this [facility] [facility] procedure are in the results section. PROTHROMBIN TIME WITH INR Routine 03/04/2018 4:20 AM Results for this [facility] [facility] procedure are in the results section. HC COMPLETE BLD COUNT Routine 03/04/2018 4:20 AM Results for this W/AUTO DIFF [facility] procedure are in the results section. ESTIMATED GFR Routine 03/04/2018 4:00 AM Results for this [facility] procedure are in the results section. FERRITIN LEVEL Routine 03/04/2018 4:00 AM Results for this [facility] procedure are in the results section. TOTAL IRON BINDING CAPACITY Routine 03/04/2018 4:00 AM Results for this [facility] procedure are in the results section. PHOSPHORUS LEVEL Routine 03/04/2018 4:00 AM Results for this [facility] procedure are in the results section. MAGNESIUM LEVEL Routine 03/04/2018 4:00 AM Results for this [facility] procedure are in the results section. BASIC METABOLIC PANEL Routine 03/04/2018 4:00 AM Results for this [facility] procedure are in the results section. POC GLUCOSE Routine 03/03/2018 9:09 PM Results for this [facility] [facility] procedure are in the results section. POC GLUCOSE Routine 03/03/2018 5:17 PM Results for this [facility] procedure are in the results section. POC GLUCOSE Routine 03/03/2018 11:38 AM Results for this [facility] procedure are in the results section. POC GLUCOSE Routine 03/03/2018 7:23 AM Results for this [facility] procedure are in the results section. ESTIMATED GFR Routine 03/03/2018 4:00 AM Results for this [facility] procedure are in the results section. BASIC METABOLIC PANEL Routine 03/03/2018 4:00 AM Results for this [facility] procedure are in the results section. HC COMPLETE BLD COUNT Routine 03/03/2018 3:30 AM Results for this W/AUTO DIFF [facility] procedure are in the results section. HEMODIALYSIS CATHETER Routine 03/02/2018 8:59 PM ESRD (end Results for this PLACEMENT [facility] stage renal procedure are in disease) (HCC) the results section. POC GLUCOSE Routine 03/02/2018 6:33 PM Results for this [facility] procedure are in the results section. HEMODIALYSIS Routine 03/02/2018 5:35 PM [facility] [facility] POC GLUCOSE Routine 03/02/2018 5:26 PM Results for this [facility] procedure are in the results section. POC GLUCOSE Routine 03/02/2018 11:35 AM Results for this [facility] [facility] procedure are in the results section. POC GLUCOSE Routine 03/02/2018 7:28 AM Results for this [facility] procedure are in the results section. ESTIMATED GFR Routine 03/02/2018 4:00 AM Results for this [facility] procedure are in the results section. PHOSPHORUS LEVEL Routine 03/02/2018 4:00 AM Results for this [facility] procedure are in the results section. BASIC METABOLIC PANEL Routine 03/02/2018 4:00 AM Results for this [facility] procedure are in the results section. POC GLUCOSE Routine 03/01/2018 9:22 PM Results for this [facility] [facility] procedure are in the results section. POC GLUCOSE Routine 03/01/2018 5:40 PM Results for this [facility] procedure are in the results section. POC GLUCOSE Routine 03/01/2018 12:11 PM Results for this [facility] procedure are in the results section. POC GLUCOSE Routine 03/01/2018 7:54 AM Results for this [facility] procedure are in the results section. POC GLUCOSE Routine 03/01/2018 4:34 AM Results for this [facility] procedure are in the results section. HC COMPLETE BLD COUNT Routine 03/01/2018 4:30 AM Results for this W/AUTO DIFF [facility] procedure are in the results section. ESTIMATED GFR Routine 03/01/2018 4:00 AM Results for this [facility] procedure are in the results section. PHOSPHORUS LEVEL Routine 03/01/2018 4:00 AM Results for this [facility] procedure are in the results section. BASIC METABOLIC PANEL Routine 03/01/2018 4:00 AM Results for this [facility] procedure are in the results section. POC GLUCOSE Routine 02/28/2018 9:14 PM Results for this [facility] [facility] procedure are in the results section. POC GLUCOSE Routine 02/28/2018 4:04 PM Results for this [facility] procedure are in the results section. HEMODIALYSIS Routine 02/28/2018 12:09 PM [facility] POC GLUCOSE Routine 02/28/2018 11:34 AM Results for this [facility] procedure are in the results section. ECHOCARDIOGRAM 2D COMPLETE Routine 02/28/2018 9:13 AM Results for this W MMODE SPECTRAL COLOR [facility] procedure are in DOPPLER ([id number]) the results section. POC GLUCOSE Routine 02/28/2018 9:09 AM Results for this [facility] procedure are in the results section. CV INTRACARDIAC Routine 02/28/2018 8:48 AM Results for this ECHOCARDIOGRAM [facility] procedure are in the results section. CV PERICARDIOCENTESIS Routine 02/28/2018 8:48 AM Results for this [facility] [facility] procedure are in the results section. PROTEIN, MISC FLUID Routine 02/28/2018 8:35 AM Results for this [facility] procedure are in the results section. LDH, MISC FLUID Routine 02/28/2018 8:35 AM Results for this [facility] procedure are in the results section. GLUCOSE LEVEL, MISC FLUID Routine 02/28/2018 8:35 AM Results for this [facility] procedure are in the results section. CELL COUNT AND Routine 02/28/2018 8:35 AM Results for this DIFFERENTIAL, BODY FLUID [facility] procedure are in the results section. CYTOLOGY Routine 02/28/2018 6:32 AM Results for this (NON-GYNECOLOGICAL) REQUEST [facility] procedure are in the results section. ESTIMATED GFR Routine 02/28/2018 3:50 AM Results for this [facility] [facility] procedure are in the results section. PHOSPHORUS LEVEL Routine 02/28/2018 3:50 AM Results for this [facility] procedure are in the results section. MAGNESIUM LEVEL Routine 02/28/2018 3:50 AM Results for this [facility] [facility] procedure are in the results section. BASIC METABOLIC PANEL Routine 02/28/2018 3:50 AM Results for this [facility] procedure are in the results section. HC COMPLETE BLD COUNT Routine 02/28/2018 3:50 AM Results for this W/AUTO DIFF [facility] procedure are in the results section. PARTIAL THROMBOPLASTIN TIME Routine 02/28/2018 3:50 AM Results for this (PTT) [facility] procedure are in the results section. PROTHROMBIN TIME WITH INR Routine 02/28/2018 3:50 AM Results for this [facility] procedure are in the results section. POC GLUCOSE Routine 02/27/2018 9:20 PM Results for this [facility] procedure are in the results section. POC GLUCOSE Routine 02/27/2018 6:06 PM Results for this [facility] procedure are in the results section. POC GLUCOSE Routine 02/27/2018 12:08 PM Results for this [facility] procedure are in the results section. POC GLUCOSE Routine 02/27/2018 9:44 AM Results for this [facility] procedure are in the results section. POC GLUCOSE Routine 02/27/2018 8:14 AM Results for this [facility] procedure are in the results section. HC COMPLETE BLD COUNT Routine 02/27/2018 4:20 AM Results for this W/AUTO DIFF [facility] procedure are in the results section. ESTIMATED GFR Routine 02/27/2018 4:00 AM Results for this [facility] procedure are in the results section. PHOSPHORUS LEVEL Routine 02/27/2018 4:00 AM Results for this [facility] [facility] procedure are in the results section. BASIC METABOLIC PANEL Routine 02/27/2018 4:00 AM Results for this [facility] procedure are in the results section. POC GLUCOSE Routine 02/26/2018 10:28 PM Results for this [facility] procedure are in the results section. POC GLUCOSE Routine 02/26/2018 5:50 PM Results for this [facility] procedure are in the results section. POC GLUCOSE Routine 02/26/2018 2:30 PM Results for this [facility] procedure are in the results section. HEMODIALYSIS Routine 02/26/2018 2:04 PM [facility] HEPATITIS B SURFACE ANTIGEN STAT 02/26/2018 2:00 PM Results for this [facility] procedure are in the results section. US DUPLEX HEMODIALYSIS AVG STAT 02/26/2018 12:15 PM Results for this AVF ACCESS [facility] procedure are in the results section. PROTHROMBIN TIME WITH INR Routine 02/26/2018 10:20 AM Results for this [facility] [facility] procedure are in the results section. HEMOGLOBIN A1C Routine 02/26/2018 10:20 AM Results for this [facility] procedure are in the results section. XR CHEST 1 VW PORTABLE STAT 02/26/2018 9:39 AM Results for this [facility] [facility] procedure are in the results section. POC GLUCOSE Routine 02/26/2018 9:10 AM Results for this [facility] [facility] procedure are in the results section. ECG 12-LEAD STAT 02/26/2018 8:53 AM Results for this [facility] [facility] procedure are in the results section. ECHOCARDIOGRAM 2D COMPLETE STAT 02/26/2018 8:17 AM Results for this W MMODE SPECTRAL COLOR [facility] procedure are in DOPPLER ([id number]) the results section. POC GLUCOSE Routine 02/26/2018 4:57 AM Results for this [facility] procedure are in the results section. PREPARE RBC Timed 02/26/2018 1:50 AM [facility] ESTIMATED GFR STAT 02/26/2018 1:50 AM Results for this [facility] procedure are in the results section. TYPE AND SCREEN Timed 02/26/2018 1:50 AM Results for this [facility] procedure are in the results section. PROTHROMBIN TIME WITH INR STAT 02/26/2018 1:50 AM Results for this [facility] procedure are in the results section. COMPREHENSIVE METABOLIC STAT 02/26/2018 1:50 AM Results for this PANEL [facility] procedure are in the results section. HC COMPLETE BLD COUNT STAT 02/26/2018 1:50 AM Results for this W/AUTO DIFF [facility] procedure are in the results section. after 04/07/2017 Results POC glucose (03/11/2018 5:03 PM [facility])Only the most recent of67 resultswithin the time period is included. POC glucose 236 (H) 65 - 99 mg/dL [facility] Comment: [facility] Notified RN No Action Needed Meter ID: [id number] Merchandise For Resale Purchasing Agent: Pk Santillan Performing Organization Address City/State/Zipcode Phone Number [facility] DEPARTMENT OF PATHOLOGY AND [address] [place] [address] GENOMIC MEDICINE [facility] [address] [place] [phone] CBC with platelet and differential (03/11/2018 1:19 PM [facility])Only the most recent of11 resultswithin the time period is included. WBC 11.05 (H) 4.50 - 11.00 k/uL [facility] RBC 3.55 (L) 4.20 - 5.50 m/uL [facility] HGB 10.0 (L) 12.0 - 16.0 g/dL [facility] HCT 31.6 (L) 37.0 - 47.0 % [facility] MCV 89.0 82.0 - 100.0 fL [facility] MCH 28.2 27.0 - 34.0 pg [facility] MCHC 31.6 31.0 - 37.0 g/dL [facility] RDW - SD 58.7 (H) 37.0 - 55.0 fL [facility] MPV 11.9 8.8 - 13.2 fL [facility] Platelet count 246 150 - 400 k/uL [facility] Nucleated RBC 0.00 /100 WBC [facility] Neutrophils 78.5 (H) 39.0 - 69.0 % [facility] Lymphocytes 9.2 (L) 25.0 - 45.0 % [facility] Monocytes 6.8 0.0 - 10.0 % [facility] Eosinophils 4.0 0.0 - 5.0 % [facility] Basophils 0.5 0.0 - 1.0 % [facility] Immature granulocytes 1.0Comment: "Immature 0.0 - 1.0 % [facility]" [facility] (promyelocytes, myelocytes, metamyelocytes) Specimen Blood Performing Organization Address City/State/Zipcode Phone Number [facility] DEPARTMENT OF PATHOLOGY AND [address] [place] [phone] GENOMIC MEDICINE [address] [address] Estimated GFR (03/11/2018 1:14 PM [facility])Only the most recent of12 resultswithin the time period is included. Estimated GFR 11 (A) mL/min/1.73 m2 [facility] Comment: HOSPITAL CatergoryUnitsInterpretation G1 >=90 Normal or high G2 60-89Mildly decreased F6p29-01Suzuwz to moderately decreased N9m94-23Hjuauotyhe to severely decreased G4 15-29Severely decreased G5 <15Kidney failure The eGFR was calculated using the Chronic Kidney Disease Epidemiology Collaboration (CKD-EPI) equation. Interpretation is based on recommendations of the National Kidney Foundation-Kidney Disease Outcomes Quality Initiative (NKF-KDOQI) published in 2014. Specimen Plasma specimen Performing Organization Address City/[facility] Phone Number [facility] DEPARTMENT OF PATHOLOGY AND [address] [place] [address] Phosphorus level (03/11/2018 1:14 PM [facility] [employer])Only the most recent of10 resultswithin the time period is included. Phosphorus 2.8 2.4 - 4.5 mg/dL [facility] Specimen Plasma specimen Performing Organization Address [facility] Phone Number [facility] DEPARTMENT OF PATHOLOGY AND [address] [place] [address] Basic metabolic panel (03/11/2018 1:14 PM [facility] TRA[employer])Only the most recent of11 resultswithin the time period is included. Sodium 135 135 - 148 mEq/L [facility] Potassium 4.0 3.5 - 5.0 mEq/L [facility] Chloride 95 (L) 98 - 112 mEq/L [facility] CO2 27 24 - 31 mEq/L [facility] Anion gap 13@ANIO 7 - 15 mEq/L [facility] BUN 28 (H) 8 - 23 mg/dL [facility] Creatinine 3.75 (H) 0.50 - 0.90 mg/dL [facility] Glucose 186 (H) 65 - 99 mg/dL [facility] Calcium 9.3 8.8 - 10.2 mg/dL [facility] Specimen Plasma specimen Performing Organization Address [facility] Centercode Phone Number [facility] DEPARTMENT OF PATHOLOGY AND [address] [place] [address] Echocardiogram complete w contrast and 3D if needed (03/09/2018 9:01 AM [facility] TRA[employer]EL [employer]) Narrative Performed At [facility] Echocardiography Report 6565 [facility] [address], [place] [address] Pat.Name:YEYO COLLINS MPat.ID:[id number] .Date: 03/09/2018Refer.MD:SCOTT PENA MD Exam Time: 9:04:00 AMStudy Type:Routine Echo Height:63inWeight: 127lb BSA: 1.6 p1DCFDmm:1935,82Y Sex: FEMALEBP:140/62 HR:86 bpmSonogrphr: Mariposa Dent [facility] Pat. Stat.:Inpatient Room: 1005 Study Status:Final Echo Event ID:[id number] Order ID:[id number] Reason for Study:Pericardial effusion History / Clinical:Congestive [...] RAPof 15 mmHg. MEASUREMENTS: 2D Parasternal [place] Ds4.5 cmAo An2.4 cm LVIDd4.1 cmIndex2.6 cm/m Ao Rtd 3 cm Index1.9 cm/m LVIDs2.4 cmLV Cvcz313.4 g(87-129) LV%fs 41.5 % LVM Xflqj706.4 g/m2 IVSd 1.3 cmRWT0.7 LVPWd1.4 cmLVOT 1.8 cm LA Sng Plane LA Area 27.5 cm2(8.8-23.4) LA Vol90.4 ml Index56.5 ml/m LA LngAx 6.9 cm DOPPLER AV For Flow/ZHENG AV pkVel 219.1 cm/s (100-170) AV AC/ET 0.3 AV mnVel 154.4 cm/Marilyn TVI44.5 cm AV pkPG 19.2 mmHgAVpkAcRt 6985.6 cm/s2 AV Mean G 11.2 mmHgAV TgCr291.3 cm/s2 AV AC 88 msec (83-118) AV [...] Radiology Results In - 03/09/2018 4:57 PM [facility] Echocardiography Report [address] [address] Pat.Name: YEYO COLLINS Pat.ID: [id number] .Date: 03/09/2018 Refer.MD: SCOTT PENA MD Exam Time: 9:04:00 AM Study Type:Routine Echo Height: 63in Weight: 127lb BSA: 1.6 m2 Age: 3 1935,82Y Sex: FEMALE BP: 140/62 HR: 86 bpm Sonogrphr: PARTHA Wallace Pat. Stat.:Inpatient Room: [facility] Study Status:Final Echo Event ID:[id number] Order ID: [id number] Reason for Study:Pericardial effusion History / Clinical:Congestive [...] of 15 mmHg. MEASUREMENTS: 2D Parasternal [place] Ds 4.5 cm Ao An 2.4 [...] Address City/State/Zipcode Phone Number [facility] [address] [place] [address] Transfuse RBC (03/08/2018 9:05 PM [facility])Only the most recent of3 resultswithin the time period is included.IR Tunneled Dialysis Catheter Placement (03/08/2018 2:53 PM [facility] TRA[employer]) Narrative Performed At Procedure: Placement of tunneled dialysis catheter [facility] Clinical History: End-stage renal disease Sedation: Versed and fentanyl were utilized for monitored conscious sedation during the procedure. The patient was transferred to the recovery room at the end of the procedure for further monitoring. Sadt-my-rdnj time 20 minutes Anesthesia: Local Radiation dose: [...] the right atrium under fluoroscopy. A 4 Latvian catheter was placed. Local anesthesia was then administered from the infraclavicular region to the initial puncture site. The 28 cm Palindrome dialysis catheter was brought through the tunnel. An Amplatz guidewire was advanced through the 4 Latvian catheter and after dilatation, the dialysis catheter [...] above. Blood Loss: Less than 5 mL [facility]-[id number] Procedure Note Interface, Radiology Results Incoming - 03/08/2018 3:04 PM [facility] Procedure: Placement of tunneled dialysis catheter Clinical History: End-stage renal disease Sedation: Versed and fentanyl were utilized for monitored conscious sedation during the procedure. The patient was transferred to the recovery room at the end of the procedure for further monitoring. Edog-sp-eitx time 20 minutes Anesthesia: Local Radiation dose: [...] the right atrium under fluoroscopy. A 4 Latvian catheter was placed. Local anesthesia was then administered from the infraclavicular region to the initial puncture site. The 28 cm Palindrome dialysis catheter was brought through the tunnel. An Amplatz guidewire was advanced through the 4 Latvian catheter and after dilatation, the dialysis catheter [...] above. Blood Loss: Less than 5 mL [facility]-[id number] Performing Organization Address [facility] Phone Number [facility] [address] [place] [address] Prepare RBC, 2 Units (03/08/2018 10:58 AM [facility] TRA[employer]EL [employer]) Product name Red Blood Cells [address] Unit number [id number] [facility] Product code [id number] [facility] Dispense status Transfused [facility] Blood expiration date [facility] Blood type code 6200 [facility] Blood type A POSITIVE [facility] Product name Red Blood Cells , [facility] Unit number [id number] [facility] Product code [id number] [facility] Dispense status Transfused [facility] Blood expiration date [facility] Blood type code 6200 [facility] Blood type A POSITIVE [facility] Performing Organization Address [facility]/Zipcode Phone Number [facility] DEPARTMENT OF PATHOLOGY AND [address] [place] [phone] [address] Type and screen (03/08/2018 10:58 AM [facility] [employer])Only the most recent of3 resultswithin the time period is included. ABO grouping A [facility] Rh type POS [facility] Antibody screen (gel) NEG [facility] Specimen Blood Performing Organization Address City/[facility] Centercode Phone Number [facility] DEPARTMENT OF PATHOLOGY AND [address] [place] [phone] [address] Smear review (03/08/2018 4:37 AM [facility] TRA[employer]) Platelet slide review Alex adequate [facility] Anisocytosis Moderate [facility] Polychromasia Moderate [facility] Schistocytes Occasional [facility] Ovalocytes Moderate [facility] [place] cells Moderate (A) [facility] Acanthocytes Occasional [facility] Performing Organization Address City/[facility] Phone Number [facility] DEPARTMENT OF PATHOLOGY AND [address] [place] [phone] [address] Sodium level, syringe (03/07/2018 12:40 PM [facility] TRA[employer]) Sodium, syringe 130 (L) 135 - 148 mEq/L [facility] Specimen Blood Performing Organization Address [facility] Phone Number [facility] DEPARTMENT OF PATHOLOGY AND [address] [place] [address] [address] Potassium, syringe (03/07/2018 12:40 PM [facility] TRA[employer]) Potassium, syringe 4.6 3.5 - 5.0 mEq/L [facility] Specimen Blood Performing Organization Address City/[facility] Centercode Phone Number [facility] DEPARTMENT OF PATHOLOGY AND [address] [place] [phone] Hemoglobin, syringe (03/07/2018 12:40 PM [facility] TRA[employer]) Hemoglobin, syringe 7.5 (L) 12.0 - 16.0 g/dL [facility] Specimen Blood Performing Organization Address [facility]/Zipcode Phone Number [facility] DEPARTMENT OF PATHOLOGY AND [address] [place] [phone] [place] [address] Glucose level, syringe (03/07/2018 12:40 PM [facility]IC[facility] TRA[employer]EL [employer]IL[employer]) Glucose, syringe 132 (H) 65 - 99 mg/dL [facility] Specimen Blood Performing Organization Address [facility] Cent[facility]ode Phone Number [facility] DEPARTMENT OF PATHOLOGY AND [address] [place] [phone] C difficile toxin (03/06/2018 6:20 AM [facility]IC[facility] TRA[employer]EL [employer]) Clostridium difficile No Clostridium difficle toxin present [facility] Comment: HOSPITAL Specimen Information Specimen Source: Stool Specimen Site: Nonpreserved Specimen Stool - Nonpreserved Performing Organization Address [facility] Phone Number [facility] DEPARTMENT OF PATHOLOGY AND [address] [place] [address] Prothrombin time with INR (03/06/2018 4:00 AM SERVIC[facility] TRA[employer]EL TRAIL[employer])Only the most recent of6 resultswithin the time period is included. Prothrombin time 14.2 11.5 - 14.5 sec [facility] INR 1.1 [facility] Comment: [facility] The International Normalized Ratio (INR) is a therapeutic monitoring tool for patients who are stable on oral anticoagulant therapy. An INR of 2.0-3.0 is suggested for deep vein thrombosis/pulmonary embolism. Specimen Blood Performing Organization Address [facility] Phone Number [facility] DEPARTMENT OF PATHOLOGY AND [address] [place] [phone] Troponin (03/05/2018 8:00 AM [facility]IC[facility] TRA[employer]EL [employer]IL[employer])Only the most recent of4 resultswithin the time period is included. Troponin <0.30 0.00 - 0.30 ng/mL [facility] Comment: 0.30 - 1.49 ng/mlMay indicate increased risk of acute coronary syndrome. >=1.5 ng/mlConsistent with acute myocardial infarction. The diagnostic value of a single normal or non-diagnostic result is questionable.Serial samples at 2-6 hour intervals are required to rule out acute myocardial injury. Specimen Plasma specimen Performing Organization Address City/[facility] Centercode Phone Number [facility] DEPARTMENT OF PATHOLOGY AND [address] [place] [address] [address] Magnesium level (03/05/2018 4:15 AM SERVIC[facility] TRA[employer]EL TRAILERS)Only the most recent of3 resultswithin the time period is included. Magnesium 1.7 1.6 - 2.4 mg/dL [facility] Specimen Plasma specimen Performing Organization Address [facility] Centercode Phone Number [facility] DEPARTMENT OF PATHOLOGY AND [address] [place] [address] [facility] [address] [place] [address] XR Chest 1 Vw Portable (03/04/2018 7:03 PM [facility] [employer])Only the most recent of2 resultswithin the time [...] versus pleural thickening is unchanged. No pneumothorax. [id number] Procedure Note Interface, Radiology Results Incoming - 03/04/2018 7:16 PM [facility] EXAMINATION: XR CHEST 1 VW PORTABLE CLINICAL [...] versus pleural thickening is unchanged. No pneumothorax. [facility]-[id number] Performing Organization Address [facility]/Zipcode Phone Number [facility] [address] [place] [address] ECG 12 lead (03/04/2018 1:48 PM [facility] TRA[employer]EL [employer]IL[employer])Only the most recent of2 resultswithin the time period is included. Ventricular rate 75 [facility] Atrial rate 75 [facility] ID interval 204 [facility] QRSD interval 76 [...] inversion less evident in Anterolateral leads-QT has [facility] MUSE lengthened- 5: 22:27 PM Narrative Performed At Performing Organization Address City/State/Zipcode Phone Number [facility] MUSE [address] duplex hemodialysis avg avf access (03/04/2018 9:20 AM [facility] TRA[employer]EL TRAIL[employer])Only the most recent of2 resultswithin the time period is included. Narrative Performed At [facility] Vascular Ultrasound Laboratory AV Graft - Fistula Report [address]Name:YEYO COLLINS [facility].ID:[id number] .Date: 03/04/2018Refer.MD:SCOTT PENA MD Exam Time: 8:11:00 AMStudy Type:AV Graft - Fistula Height:63inWeight: 123lb BSA: 1.57 m2 DOBAge:1935,82Y Sex: FEMALESonogrphr: Aubree Villela RVT Pat. Stat.:Inpatient Room:[address] TapeVol: , CPT - 4: [address] Echo Event ID:[id number] Order ID:[id number] Reason for Study:AV-graft without thrill and buit.History [...] BrachialProximal-third 82 cm/sec Mid-third47 cm/sec Distal-third40 cm/sec Baveabbyfqh77qo/sec,0cm/sec AV-GraftJaxta0 cm/sec Arterial yshv7uk/sec Venous lusi4px/sec Uvntasgzcov04ta/sec Axillary VeinDistal-jgram64bm/sec Subclavian Vein Mid-qycyx22eb/sec VOLUME FLOW: Gjwqivfe88 cc/min 83 cc/min PRELIMINARY FINDINGS: 1. Occluded [...] Radiology Results In - 03/04/2018 2:26 PM [facility] Vascular Ultrasound Laboratory AV Graft - Fistula Report [address] [place] [address] Pat.Name: YEYO COLLINS Pat.ID: [id number] .Date: 03/04/2018 Refer.MD: SCOTT PENA MD Exam Time: 8:11:00 AM Study Type:AV Graft - Fistula Height: 63in Weight: 123lb BSA: 1.57 m2 Age: 3 1935,82Y Sex: FEMALE Sonogrphr: Aubree Villela RVT Pat. Stat.:Inpatient Room: [address] Tape Vol: YM, CPT - 4: 314[address] Echo Event ID:[id number] Order ID: [id number] Reason for Study:AV-graft without thrill and buit. [...] Organization Address City/State/Zipcode Phone Number [facility] [address] [place] [address] Total iron binding capacity (03/04/2018 4:00 AM [facility]IC[facility] TRA[employer]EL TRAIL[employer]) Iron level 36 (L) 37 - 145 ug/dL [facility] Iron binding capacity 118 (L) 200 - 400 ug/dL [facility] % Saturation 30.5 15.0 - 38.0 % [facility] Specimen Plasma specimen Performing Organization Address City/[facility] Centercode Phone Number [facility] DEPARTMENT OF PATHOLOGY AND [address] [place] [phone] [place] [address] Ferritin level (03/04/2018 4:00 AM [facility]IC[facility] TRA[facility]EL TRAIL[employer]) Ferritin level 978 (H) 13 - 150 ng/mL [facility] Specimen Plasma specimen Performing Organization Address [facility] Centercode Phone Number [facility] DEPARTMENT OF PATHOLOGY AND [address] [place] [phone] [place] [address] HEMODIALYSIS CATHETER PLACEMENT (03/02/2018 8:59 PM [facility] [employer]) Narrative Performed At Chava Hill MD 03/03/2018 12:44 PM Hemodialysis catheter placement Date/Time: 03/02/2018 8:59 PM Performed by: Rodriguez Edwards MD Authorized by: Chava Hill MD Consent: Consent obtained:Verbal and written Consent given by:Patient Risks discussed:Arterial puncture, incorrect placement, nerve damage, infection and bleeding Alternatives discussed:Delayed treatment [place] protocol: Procedure explained and questions answered to [...] and 3D if needed (02/28/2018 9:13 AM [facility]IC[facility] TRA[employer]EL TRAIL[employer]) Narrative Performed At [facility] Echocardiography Report 6549 [facility], [address]Name:YEYO COLLINS.ID:[id number] .Date: 02/28/2018 Refer.MD:SCOTT PENA MD Exam Time: 8:01:00 AMStudy Type:Routine Echo Height:63inWeight: 151lb BSA: 1.72 m2 DOBAge:1935,82Y Sex: FEMALEBP:126/62 HR:86 bpmSonogrphr: PARTHA Grant Pat. Stat.:Inpatient Room:[place] [address] Study Status:Final Echo Event ID:[id number] Order ID:[id number] Reason for Study:Periocardiocentesis History / Clinical:Congestive Heart [...] Radiology Results In - 02/28/2018 4:12 PM [facility] Echocardiography Report [address] [place] [address] Pat.Name: YEYO COLLINS Pat.ID: [id number] .Date: 02/28/2018 Refer.MD: SCOTT PENA MD Exam Time: 8:01:00 AM Study Type:Routine Echo Height: 63in Weight: 151lb BSA: 1.72 m2 Age: 3 1935,82Y Sex: FEMALE BP: 126/62 HR: 86 bpm Sonogrphr: PARTHA Grant Pat. Stat.:Inpatient Room: [place] [address] Study Status:Final Echo Event ID:[id number] Order ID: [id number] Reason for Study:Periocardiocentesis History / Clinical:Congestive Heart [...] Organization Address City/State/Zipcode Phone Number [facility] [address] [place] [address] Cv entry level lab technician procedure (02/28/2018 8:48 AM [facility]IC[facility] TRA[employer]EL TRAIL[employer]) Narrative Performed At S/p successful pericardiocentesis assisted with US and fluoroscopy. [facility] Micropuncture catheter used to obtain access to pericardial space and exchange for pericardial drain. Performing Organization Address City/State/Zipcode Phone Number [facility] [address] [place] [address] Cell count and differential, body fluid (02/28/2018 8:35 AM [facility]IC[facility] TRA[employer]EL TRAIL[employer]) Misc fluid type Pericardial [facility] Color, fluid Red [facility] Appearance, fluid Hazy [facility] RBC, fluid 170,000 /CMM [facility] Nucleated cells, fluid 137 /CMM [facility] Fluid mononuclear cell See Diff [facility] Neutrophils, fluid 40 % [facility] Lymphocytes, fluid 23 % [facility] Eosinophils, fluid 5 % [facility] Macrophages, fluid 32 % [facility] Specimen Fluid Narrative Performed At Pericardial fluid [facility] DEPARTMENT OF PATHOLOGY AND GENOMIC MEDICINE Performing Organization Address City/[facility]/Zipcode Phone Number [facility] DEPARTMENT OF PATHOLOGY AND [address] [place] [address] GENOMIC MEDICINE [address] [address] Protein, misc fluid (02/28/2018 8:35 AM [facility]IC[facility] TRA[employer]EL TRAIL[employer]) Fluid type Pericardial [facility] Protein, fluid 4.3 g/dL [facility] Comment: Analysis performed on Mickey 8000 analyzer. This is not an approved methodology for this specimen type;accuracy and clinical significance uncertain. Specimen Fluid Narrative Performed At Pericardial fluid [facility] DEPARTMENT OF PATHOLOGY AND GENOMIC MEDICINE Performing Organization Address City/[facility] Centercode Phone Number [facility] DEPARTMENT OF PATHOLOGY AND [address] [place] [phone] [address] LDH, misc fluid (02/28/2018 8:35 AM [facility] TRA[employer]EL TRAIL[employer]) Fluid type Pericardial [facility] LDH, fluid 348 U/L [facility] Comment: Analysis performed on Mickey 8000 analyzer. This is not an approved methodology for this specimen type;accuracy and clinical significance uncertain. Specimen Fluid Narrative Performed At Pericardial fluid [facility] DEPARTMENT OF PATHOLOGY AND GENOMIC MEDICINE Performing Organization Address City/State/Zipcode Phone Number [facility] DEPARTMENT OF PATHOLOGY AND [address] [place] [address] GENOMIC MEDICINE [address] [address] Glucose level, misc fluid (02/28/2018 8:35 AM [facility] TRA[employer]IL[employer]) Fluid type Pericardial [facility] Glucose, fluid 126 mg/dL [facility] Comment: Analysis performed on Mickey 8000 analyzer. This is not an approved methodology for this specimen type;accuracy and clinical significance uncertain. Specimen Fluid Narrative Performed At Pericardial fluid [facility] DEPARTMENT OF PATHOLOGY AND GENOMIC MEDICINE Performing Organization Address City/State/Zipcode Phone Number [facility] DEPARTMENT OF PATHOLOGY AND [address] [place] [address] Cytology (non-gynecological) request (02/28/2018 6:32 AM [facility]IC[facility] TRA[facility]EL TRAIL[employer]) [facility] DEPARTMENT OF PATHOLOGY AND GENOMIC MEDICINE Cytology See link below for PDF [facility] DEPARTMENT OF (non-gynecological) report Lab Report PATHOLOGY AND GENOMIC MEDICINE Result status This is Final Report [facility] DEPARTMENT OF for [id number] PATHOLOGY AND GENOMIC MEDICINE Performing Organization Address City/[facility] Centercode Phone Number [facility] DEPARTMENT OF PATHOLOGY AND [address] [place] [address] Partial thromboplastin time, activated (02/28/2018 3:50 AM [facility] TRA[facility]IL[facility]) PTT 35.1 23.0 - 36.0 sec [facility] Comment: PTT therapeutic range for unfractionated heparin is 61.0-112.0 seconds which corresponds to Anti-Xa 0.3-0.7 U/ml. Specimen Blood Performing Organization Address City/[facility] Centercode Phone Number [facility] DEPARTMENT OF PATHOLOGY AND [address] [place] [address] Hepatitis B surface antigen (02/26/2018 2:00 PM [facility] TRA[facility]EL TRAIL[employer]) Hepatitis B surface Ag Non-reactive Non-reactive [facility] Specimen Blood Performing Organization Address City/[facility]/Zipcode Phone Number [facility] DEPARTMENT OF PATHOLOGY AND [address] [place] [address] Hemoglobin A1c (02/26/2018 10:20 AM [employer]) Hemoglobin A1C 5.5 4.0 - 5.6 % [facility] Comment: HbA1c cutoffs for diagnosing diabetes: 4.0% - 5.6%=normal 5.7% - 6.4%=increased risk for diabetes (prediabetes) >=6.5%=diabetes Goals for glycemic control (ADA 2016) < 7.0%Target for non adults with diabetes. More or less stringent targets may be appropriate for individual patients. <7.5% Target for Children and adolescents with type 1 diabetes. Specimen Blood Performing Organization Address City/State/Zipcode Phone Number [facility] DEPARTMENT OF PATHOLOGY AND [address] [place] [address] GENOMIC MEDICINE [facility] [address] [place] [phone] Echocardiogram complete w contrast and 3D if needed (02/26/2018 8:17 AM [employer]) Narrative Performed At [facility] Echocardiography Report [address] [facility] [address], [place] [address] Pat.Name:YEYO COLLINS.ID:[id number] .Date: 02/26/2018 Refer.MD:HERMAN FRAGA MD Exam Time: 7:27:00 AMStudy Type:Routine Echo Height:63inWeight: 151lb BSA: 1.72 m2 DOBAge:1935,82Y Sex: FEMALEBP:141/71 HR:87 bpm Sonogrphr: Laya Coffman RDCS, ISABELT Pat. Stat.:Inpatient Room:[address] Study Status:Final Echo Event ID:[id number] Order ID:[id number] Reason for Study:Pre-op clearance History / Clinical:Congestive [...] RAPof 10 mmHg. MEASUREMENTS: 2D Parasternal [place] LVOT 1.9 cmLA Ds3.9 cm LVIDd2.9 cmIndex1.7 cm/m Ao Rtd 3.1 cm Index1.8 cm/m LVIDs1.9 cmLV Rgmx846.4 g(87-129) LV%fs 35.7 % LVM Ofoov611.1 g/m2 IVSd 1.6 cmRWT1.3 LVPWd1.9 cm LA Sng Plane LA Area 25.8 cm2(8.8-23.4) LA Vol84.5 ml Index49.1 ml/m LA LngAx 6.2 cm Aorta Ao Asc 3.7 cm (2.1-3.4) DOPPLER AV For Flow/ZHENG AV pkVel 227 cm/s (100-170) AV AC/ET 0.3 AV mnVel 148 cm/Marilyn TVI41.9 cm AV pkPG 20.6 mmHgAVpkAcRt 4164.3 cm/s2 AV Mean G 10.6 mmHgAV DaUc500.8 cm/s2 AV AC 83 msec (83-118) AV Area1.4 cm2(3-5) AV ET283 msec LVOT For Flow LVOT Area2.8 cm2 LVOT SV 60.5 ml OALNfsPdl714.7 cm/sHR77.1 bpm LVOTpkPG 4.1 mmHgLVOT CO4.7 l/min LVOTmnPG 2.4 mmHgLVOT CI2.7 l/m/m2 LVOT TVI21.3 cm MV For Flow/Valve Assess MV Dec T 859 msecMV Mean G3.9 mmHg MV pkVel 172.7 cm/sMV TVI33.2 cm MV pkPG 11.9 mmHg Signed 02/26/2018 02:41 PM Marilee King M.D. Procedure Note Interface, Radiology Results In - 02/26/2018 2:41 PM [employer] Echocardiography Report [address] [place] [address] Pat.Name: YEYO COLLINS Pat.ID: [id number] .Date: 02/26/2018 Refer.MD: HERMAN FRAGA MD Exam Time: 7:27:00 AM Study Type:Routine Echo Height: 63in Weight: 151lb BSA: 1.72 m2 Age: 4 1935,82Y Sex: FEMALE BP: 141/71 HR: 87 bpm Sonogrphr: Laya Coffman RDCS, ISABELT Pat. Stat.:Inpatient Room: [facility] B Study Status:Final Echo Event ID:[id number] Order ID: [id number] Reason for Study:Pre-op clearance History / Clinical:Congestive [...] of 10 mmHg. MEASUREMENTS: 2D Parasternal [place] LVOT 1.9 cm LA Ds 3.9 cm [...] Address City/State/Zipcode Phone Number [facility] [address] [place] [address] Comprehensive metabolic panel (02/26/2018 1:50 AM [employer]) Sodium 138 135 - 148 mEq/L [facility] Potassium 3.5 3.5 - 5.0 mEq/L [facility] Chloride 100 98 - 112 mEq/L [facility] CO2 26 24 - 31 mEq/L [facility] Anion gap 12@ANIO 7 - 15 mEq/L [facility] BUN 12 8 - 23 mg/dL [facility] Creatinine 3.07 (H) 0.50 - 0.90 mg/dL [facility] Glucose 110 (H) 65 - 99 mg/dL [facility] Calcium 9.5 8.8 - 10.2 mg/dL [facility] Protein 6.6 6.3 - 8.3 g/dL [facility] Comment: HOSPITAL [place] 4.6-7.0 g/dL 1 week 4.4-7.6 g/dL 7 months-1year5.1-7.3 g/dL 1-2 years5.6-7.5 g/dL >3 years6.0-8.0 g/dL 18-150 6.3-8.3 g/dL Albumin 2.7 (L) 3.5 - 5.0 g/dL [facility] A/G ratio 0.7 0.7 - 3.8 [facility] Alkaline phosphatase 64 35 - 104 U/L [facility] AST 20 10 - 35 U/L [facility] ALT 8 5 - 50 U/L [facility] Total bilirubin 0.4 0.0 - 1.2 mg/dL [facility] Specimen Plasma specimen Performing Organization Address City/State/Zipcode Phone Number [facility] DEPARTMENT OF PATHOLOGY AND [address] [place] [address] GENOMIC MEDICINE [facility] [address] [place] [address] after 04/07/2017 Insurance Payer Benefit Plan / Group Subscriber ID Type Phone Address MEDICARE MEDICARE PART A AND B xxxxxxxxxx Medicare [place], [place] Advance Directives Patient has advance care planning documents on file. For more information, please contact:[address] [address]
--- OUTSIDE RECORDS SUMMARY | 2018-04-08 00:15 | XMS REPORT | Clinical Summary ---
:[address] [facility] Address [address] [place] [address] Care Team Providers Name Role Phone Anastacio [...] tablet FA-vit Take by mouth. 0 Active Bcomp&Q-rphugkkl-c inc 3-70-15 mg-mcg-mg Tab citalopram Take 20 [...] if pain unrelieved 5min after 1st dose. ticagrelor Take 1 tablet (90 180 tablet [...] 19 times daily with breakfast and dinner. ondansetron Take 1 tablet (4 20 tablet 0 04/05/19 (ZOFRAN-ODT) 4 MG mg total) by mouth 9 19 disintegrating every 8 (eight) tablet hours as needed for up to 7 days. Active Problems Problem Noted Date NSTEMI (non-ST [...] ESRD (end stage renal disease) on dialysis ([facility]) Jerman Perera MD 03/23/2018 Surgery Marley Lambert & EVELIN Verdugo MD 03/23/2018 Travel after 04/07/2017 Social History Tobacco Use Types Packs/Day Years [...] Taken Blood Pressure 167/72 03/29/2018 11:31 AM [facility] Pulse 65 03/29/2018 11:31 AM [facility] Temperature 36.8 C (98.3 F) 03/29/2018 11:31 AM [facility]ER Respiratory Rate 18 03/29/2018 11:31 AM [facility]ER Oxygen Saturation 100% 03/29/2018 11:31 AM [facility] Inhaled Oxygen Concentration 21% 03/25/2018 10:36 PM [facility] Weight 59.4 kg (130 lb 15.3 oz) 03/26/2018 9:55 AM [facility] Height 162 cm (5' 3.78") 03/23/2018 5:16 PM [facility] Body Mass Index 22.63 03/26/2018 9:55 AM [facility] Plan of Treatment Not on file Procedures Procedure Name Priority Date/Time Associated Diagnosis Comments POCT-GLUCOSE METER Routine 03/29/2018 12:48 PM Results for this [facility] procedure are in the results section. POCT-GLUCOSE METER Routine 03/29/2018 7:48 AM Results for this [facility] procedure are in the results section. ECG 12-LEAD Routine 03/29/2018 7:20 AM [facility]ER Procedure Note - Interface, External Ris In - 03/29/2018 5:44 PM [facility] Ventricular Rate 65 BPM Atrial Rate 65 BPM P-R Interval 222 ms QRS Duration 78 ms Q-T Interval 430 ms QTC Calculation(Bazett) 447 ms P [place] 95 degrees R [place] -24 degrees T [place] 144 degrees Sinus rhythm with 1st degree A-V block Inferior infarct (cited on or before 24-MAR-2018) Anterior infarct (cited on or before 24-MAR-2018) ST & T wave abnormality, consider lateral ischemia Abnormal ECG When compared with ECG of 29-MAR-2018 07:19, No significant change was found ECG 12-LEAD STAT 03/29/2018 7:20 AM [facility] ECG 12-LEAD Routine 03/29/2018 7:19 AM [facility] Procedure Note - Interface, External Ris In - 03/29/2018 5:44 PM [facility] Ventricular Rate 65 BPM Atrial Rate 65 BPM P-R Interval 220 ms QRS Duration 84 ms Q-T Interval 428 ms QTC Calculation(Bazett) 445 ms P [place] 85 degrees R [place] -20 degrees T [place] 141 degrees Sinus rhythm with 1st degree A-V block Inferior infarct (cited on or before 24-MAR-2018) Anterior infarct (cited on or before 24-MAR-2018) T wave abnormality, consider lateral ischemia ACUTE [place] / STEMI Consider right ventricular involvement in acute inferior infarct Abnormal ECG When compared with ECG of 28-MAR-2018 06:45, No significant change was found ECG 12-LEAD Routine 03/29/2018 7:19 AM [facility] MAGNESIUM Routine 03/29/2018 7:10 AM [facility] BASIC METABOLIC PANEL (7) Routine 03/29/2018 7:10 AM [facility] CBC (HEMOGRAM ONLY) Routine 03/29/2018 7:10 AM [facility]ER POCT-GLUCOSE METER Routine 03/28/2018 10:48 PM [facility] POCT-GLUCOSE METER Routine 03/28/2018 6:52 PM [facility] POCT-GLUCOSE METER Routine 03/28/2018 3:32 PM [facility] POCT-GLUCOSE METER Routine 03/28/2018 2:03 PM [facility] C. DIFFICILE GDH TOXIN Routine 03/28/2018 10:26 AM [facility]ER POCT-GLUCOSE METER Routine 03/28/2018 10:12 AM [facility] ECG 12-LEAD Routine 03/28/2018 6:45 AM [facility]ER Procedure Note - Interface, External Ris In - 03/28/2018 10:27 AM [facility] Ventricular Rate 66 BPM Atrial Rate 66 BPM P-R Interval 224 ms QRS Duration 84 ms Q-T Interval 406 ms QTC Calculation(Bazett) 425 ms P [place] -4 degrees R [place] 3 degrees T [place] 140 degrees Sinus rhythm with 1st degree A-V block Inferior infarct (cited on or before 24-MAR-2018) Cannot rule out Anterior infarct , age undetermined ST & T wave abnormality, consider lateral ischemia Abnormal ECG When compared with ECG of 27-MAR-2018 06:56, No significant change was found ECG 12-LEAD Routine 03/28/2018 6:45 AM [facility] MAGNESIUM Routine 03/28/2018 4:46 AM [facility] BASIC METABOLIC PANEL (7) Routine 03/28/2018 4:46 AM [facility] CBC (HEMOGRAM ONLY) Routine 03/28/2018 4:46 AM [facility]ER POCT-GLUCOSE METER Routine 03/27/2018 9:10 PM [facility] POCT-GLUCOSE METER Routine 03/27/2018 5:37 PM [facility] POCT-GLUCOSE METER Routine 03/27/2018 1:19 PM [facility] POCT-GLUCOSE METER Routine 03/27/2018 9:55 AM [facility]ER IR AV SHUNT/FISTULAGRAM Routine 03/27/2018 9:30 AM [facility] ECG 12-LEAD Routine 03/27/2018 6:56 AM [facility] Procedure Note - Interface, External Ris In - 03/27/2018 7:04 AM [facility] Ventricular Rate 64 BPM Atrial Rate 64 BPM P-R Interval 230 ms QRS Duration 82 ms Q-T Interval 430 ms QTC Calculation(Bazett) 443 ms P [place] 95 degrees R [place] -18 degrees T [place] 137 degrees Sinus rhythm with 1st degree A-V block Inferior infarct (cited on or before 24-MAR-2018) ST & T wave abnormality, consider lateral ischemia Abnormal ECG When compared with ECG of 25-MAR-2018 10:48, No significant change was found ECG 12-LEAD Routine 03/27/2018 6:56 AM [facility] MAGNESIUM Routine 03/27/2018 5:50 AM [facility] BASIC METABOLIC PANEL (7) Routine 03/27/2018 5:50 AM [facility] CBC (HEMOGRAM ONLY) Routine 03/27/2018 5:50 AM [facility] POCT-GLUCOSE METER Routine 03/26/2018 10:12 PM [facility] POCT-GLUCOSE METER Routine 03/26/2018 5:43 PM [facility] PHOSPHORUS Routine 03/26/2018 2:55 PM [facility] POCT-GLUCOSE METER Routine 03/26/2018 2:53 PM [facility] HEMODIALYSIS INPATIENT Routine 03/26/2018 2:00 PM [facility] HEPATITIS B SURFACE ANTIGEN Routine 03/26/2018 9:58 AM [facility] POCT-GLUCOSE METER Routine 03/26/2018 9:03 AM [facility] MAGNESIUM Routine 03/26/2018 4:36 AM [facility] BASIC METABOLIC PANEL (7) Routine 03/26/2018 4:36 AM [facility]ER CBC (HEMOGRAM ONLY) Routine 03/26/2018 4:36 AM [facility]ER PROTHROMBIN TIME/INR Routine 03/26/2018 4:36 AM [facility]ER APTT Routine 03/26/2018 1:03 AM [facility] POCT-GLUCOSE METER Routine 03/25/2018 8:48 PM [facility] APTT Routine 03/25/2018 6:11 PM [facility]ER POCT-GLUCOSE METER Routine 03/25/2018 5:18 PM [facility] POCT-GLUCOSE METER Routine 03/25/2018 12:04 PM [facility]ER APTT Routine 03/25/2018 11:42 AM [facility] ECG 12-LEAD Routine 03/25/2018 10:48 AM [facility] Procedure Note - Interface, External Ris In - 03/25/2018 11:00 AM [facility] Ventricular Rate 62 BPM Atrial Rate 62 BPM P-R Interval 224 ms QRS Duration 82 ms Q-T Interval 428 ms QTC Calculation(Bazett) 434 ms P [place] 93 degrees R [place] -5 degrees T [place] 134 degrees Sinus rhythm with 1st degree A-V block Inferior infarct , possibly acute T wave abnormality, consider lateral ischemia ACUTE [place] / STEMI Consider right ventricular involvement in acute inferior infarct Abnormal ECG ECG 12-LEAD STAT 03/25/2018 10:48 AM [facility]ER ECHOCARDIOGRAM REPORT - SCAN 03/25/2018 9:51 AM [facility] POCT-GLUCOSE METER Routine 03/25/2018 8:02 AM [facility] APTT Routine 03/25/2018 4:20 AM [facility]ER IRON, TIBC, % SAT. (WITHOUT Routine 03/25/2018 4:20 AM [facility]ER Results for this FERRITIN) procedure are in the results section. MAGNESIUM Routine 03/25/2018 4:20 AM [facility] BASIC METABOLIC PANEL (7) Routine 03/25/2018 4:20 AM [facility] CBC (HEMOGRAM ONLY) Routine 03/25/2018 4:20 AM [facility]ER PROTHROMBIN TIME/INR Routine 03/25/2018 4:20 AM [facility]ER APTT Routine 03/24/2018 10:35 PM [facility]ER POCT-GLUCOSE METER Routine 03/24/2018 9:32 PM [facility] POCT-GLUCOSE METER Routine 03/24/2018 5:41 PM [facility] 2D ECHO W/ DOPPLER Routine 03/24/2018 5:33 PM [facility] Results for this (CW/PW/COLOR) procedure are in the results section. APTT Routine 03/24/2018 12:47 PM [facility]ER POCT-GLUCOSE METER Routine 03/24/2018 12:44 PM [facility] ECG 12-LEAD Routine 03/24/2018 8:54 AM [facility] Procedure Note - Interface, External Ris In - 03/24/2018 8:57 AM [facility] Ventricular Rate 69 BPM Atrial Rate 69 BPM P-R Interval 238 ms QRS Duration 76 ms Q-T Interval 402 ms QTC Calculation(Bazett) 430 ms P [place] -11 degrees R [place] -3 degrees T [place] 134 degrees Sinus rhythm with 1st degree A-V block Inferior infarct , age undetermined Possible Anterolateral infarct , age undetermined Abnormal ECG ECG 12-LEAD Routine 03/24/2018 8:54 AM Results for this [facility] procedure are in the results section. POCT-GLUCOSE METER Routine 03/24/2018 7:31 AM Results for this [facility] procedure are in the results section. CBC W/PLT COUNT & AUTO Routine 03/24/2018 5:11 AM Results for this DIFFERENTIAL [facility] procedure are in the results section. APTT Routine 03/24/2018 5:11 AM Results for this [facility] procedure are in the results section. PROTHROMBIN TIME/INR Routine 03/24/2018 5:11 AM Results for this [facility] procedure are in the results section. CBC W/PLT COUNT & AUTO Routine 03/24/2018 5:11 AM Results for this DIFFERENTIAL [facility] procedure are in the results section. PHOSPHORUS Routine 03/24/2018 5:11 AM Results for this [facility] procedure are in the results section. MAGNESIUM Routine 03/24/2018 5:11 AM Results for this [facility] procedure are in the results section. COMPREHENSIVE Routine 03/24/2018 5:11 AM Results for this METABOLIC PANEL [facility] procedure are in the results section. CBC (HEMOGRAM ONLY) Routine 03/24/2018 5:11 AM Results for this [facility] procedure are in the results section. POCT-GLUCOSE METER Routine 03/23/2018 10:37 PM Results for this [facility] procedure are in the results section. APTT Routine 03/23/2018 8:43 PM Results for this [facility] procedure are in the results section. PLATELET COUNT Routine 03/23/2018 8:43 PM Results for this [facility] procedure are in the results section. LIPID PANEL Routine 03/23/2018 8:43 PM Results for this [facility] procedure are in the results section. B-TYPE NATRIURETIC Routine 03/23/2018 8:43 PM Results for this FACTOR (BNP) [facility] procedure are in the results section. TROPONIN I Routine 03/23/2018 8:43 PM Results for this [facility] procedure are in the results section. L CATH & PCI 03/23/2018 5:[address] elevation [facility] myocardial infarction (STEMI), unspecified artery (HCC) after 04/07/2017 Results POC-Glucose meter (03/29/2018 12:48 PM [facility])Only the most recent of24 resultswithin the time period is included. POC-Glucose Meter 148 (H)Comment: TESTED AT 70 - 110 mg/dL [facility] [address] [facility] [address] Specimen Blood Performing Organization Address City/State/Zipcode Phone Number [address] [address] [place] ECG 12 lead (03/29/2018 7:20 AM [facility]ER)Only the most recent of6 resultswithin the time period is included. Narrative Performed At Ventricular Rate 65 BPM GE MUSE Atrial Rate 65 BPM P-R Interval 222 ms QRS Duration 78 ms Q-T Interval 430 ms QTC Calculation(Bazett) 447 ms P [place] 95 degrees R [place] -24 degrees T [place] 144 degrees Sinus rhythm with 1st degree [...] External Ris In - 03/30/2018 11:47 AM [facility] Ventricular Rate 65 BPM Atrial Rate 65 BPM P-R Interval 222 ms QRS Duration 78 ms Q-T Interval 430 ms QTC Calculation(Bazett) 447 ms P [place] 95 degrees R [place] -24 degrees T [place] 144 degrees Sinus rhythm with 1st degree A-V block Inferior infarct (cited on or before 24-MAR-2018) Anterior infarct (cited on or before 24-MAR-2018) ST & T wave abnormality, consider lateral ischemia Abnormal ECG When compared with ECG of 29-MAR-2018 07:19, No significant change was found Confirmed by MD SON MAJID ([id number]) on 03/30/2018 11:47:27 AM Performing Organization Address City/[facility] Phone Number GE MUSE CBC (Hemogram only) (03/29/2018 7:10 AM [facility])Only the most recent of6 resultswithin the time period is included. WBC 11.9 (H) 3.5 - 10.5 K/L [facility] RBC 3.64 (L) 3.93 - 5.22 M/L [facility] Hemoglobin 10.3 (L) 11.2 - 15.7 GM/DL [facility] Hematocrit 32.7 (L) 34.1 - 44.9 % [facility] MCV 89.8 79.4 - 94.8 fL [facility] MCH 28.3 25.6 - 32.2 pg [facility] MCHC 31.5 (L) 32.2 - 35.5 GM/DL [facility] RDW 17.7 (H) 11.7 - 14.4 % [facility] Platelets 359 150 - 450 K/CU MM [facility] MPV 10.1 9.4 - 12.3 fL [facility] nRBC 0 0 - 0 /100 WBC [facility] Specimen Blood Performing Organization Address [facility] Hospitalcode Phone Number [facility] [address] [place] [address] [phone] CENTER Magnesium (03/29/2018 7:10 AM [facility])Only the most recent of6 resultswithin the time period is included. Magnesium 1.8 1.6 - 2.6 mg/dL [facility] Specimen Blood Narrative Performed At Please draw today if not done already. [facility] Performing Organization Address [facility]/Zipcode Phone Number [place] [phone] [place] [address] [place] Basic metabolic panel (03/29/2018 7:10 AM [facility]ER)Only the most recent of5 resultswithin the time period is included. Sodium 135 (L) 136 - 145 meq/L [facility] Potassium 4.0 3.5 - 5.1 meq/L [facility] Chloride 103 98 - 107 meq/L [facility] CO2 24 22 - 29 meq/L [facility] BUN 23 (H) 7 - 21 mg/dL [facility] Creatinine 2.91 (H) 0.57 - 1.25 mg/dL [facility] Glucose 108 (H) 70 - 105 mg/dL [facility] Calcium 9.1 8.4 - 10.2 mg/dL [facility] EGFR 16Comment: ESTIMATED GFR IS mL/min/1.73 sq m [facility] NOT ACCURATE CREATININE [facility] CENTER CLEARANCE IN PREDICTING GLOMERULAR FILTRATION RATE. ESTIMATED GFR IS NOT APPLICABLE FOR DIALYSIS PATIENTS. Specimen Blood Narrative Performed At Please draw today if not done already. [facility] Performing Organization Address City/State/[facility] Hospitalco[facility] Phone Number [facility] [address] [place] [address] [place] Clostridium difficile [facility]DH Toxin (03/28/2018 10:26 AM [facility]) C. Difficle Toxin Negative Negative [facility] C. Difficile GDH Antigen NegativeComment: No Negative [facility] indication of Clostridium [facility] CENTER difficile infection and no colonization. Discontinue enteric isolation and therapy. Specimen Stool - Rectum Narrative Performed At Testing performed by Alere Rapid Cassette [facility] Assay.For GDH, published sensitivity of the assay is 98.7% compared to cytotoxicity testing.For Toxin AB, published sensitivity is 87.8% and specificity 99.4% compared to cytotoxicity testing. Verification of kit performance was done by the [facility] Microbiology Lab prior to clinical use. Performing Organization Address City/State/Zipcode Phone Number [facility] [address] [place] [address] CENTER IR AV Shunt/Fistulagram (03/27/2018 9:30 AM [facility]) Narrative Performed At FINAL REPORT GE [facility] Procedure: Attempted declotting of left upper [...] MD Report Verified Date/Time:03/27/2018 16:13:07 Reading Location: [place] [address] Angio Body Reading Room Procedure Note Interface, External Ris In - 03/27/2018 4:15 PM [facility] FINAL REPORT Procedure: Attempted declotting of left [...] Report Verified Date/Time: 03/27/2018 16:13:07 Reading Location: [facility] P[address] Angio Body Reading Room Performing Organization Address City/State/Zipcode Phone Number GE RIS Phosphorus (03/26/2018 2:55 PM [facility])Only the most recent of2 resultswithin the time period is included. Phosphorus 2.0 (L) 2.3 - 4.7 mg/dL [facility] Specimen Blood - Arm, Right Performing Organization Address [facility] Hospital[facility] Phone Number [address] [address] [phone] CENTER HEMODIALYSIS INPATIENT (03/26/2018 2:00 PM [facility]) Narrative Performed At Zina Strange RN 03/26/20187:25 [...] Hepatitis B surface antigen (03/26/2018 9:58 AM [facility]) hepatitis B Surface Ag NON-REACTIVE Nonreactive [facility] Specimen Blood Performing Organization Address [facility] Hospitalcode Phone Number [address] [address] [place] Prothrombin time/INR (03/26/2018 4:36 AM [facility])Only the most recent of3 resultswithin the time period is included. Protime 14.8 (H) 11.7 - 14.7 seconds [facility] INR 1.2 <=5.9 [facility] Specimen Blood Narrative Performed At RECOMMENDED COUMADIN/WARFARIN INR THERAPY [facility] RANGES STANDARD DOSE: 2.0 - 3.0 Includes: PROPHYLAXIS for venous thrombosis, systemic embolization; TREATMENT for venous thrombosis and/or pulmonary embolus. HIGH RISK: Target INR is 2.5-3.5 for patients with mechanical heart valves. Performing Organization Address City/[facility] Phone Number [address] [address] [place] aPTT (03/26/2018 1:03 AM [facility]ER)Only the most recent of8 resultswithin the time period is included. PTT 60.2 (H) 22.5 - 36.0 seconds [facility] Specimen Blood Performing Organization Address [facility] Phone Number [address] [address] [place] ECHOCARDIOGRAM REPORT - SCAN (03/25/2018 9:51 AM [facility]) Narrative Performed At Iron, TIBC, % sat. (without ferritin) (03/25/2018 4:20 AM [facility]ER) Iron 29.0 (L) 40.0 - 160.0 ug/dL [facility] TIBC 123 (L) 250 - 450 ug/dL [facility] Iron % Saturation 24 20 - 55 % [facility] Specimen Blood - Arm, Right Performing Organization Address [facility] Hospitalcode Phone Number [address] [address] [place] Transthoracic 2D echo w/ doppler (cw/pw/color) (03/24/2018 5:33 PM [facility]) Ejection Fraction [facility] [employer] [facility] Narrative Performed At Transthoracic Echocardiography Report (TTE) [facility] [employer] [facility] Dem[facility] Patient Name Nikolay COLLINS of Study 03/24/2018 OPAL [id number] GenderFemale Visit Number [id number] Unknown [id number] Room Number 6214 Number Date of Birth1935Referring Physician Age82 year(s)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 Myxn-wq-aybqsags aortic stenosis. Estimated peak systolic PA pressure [...] right- and le ft- coronary cups(s). Mi rd-br-dhueriqy aortic stenosis. 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 Acvq-mp-ojcwlrqs aortic stenosis. Estimated peak systolic PA pressure [...] involves the right- and left- coronary cups(s). Kxwn-hb-ftruhdkp aortic stenosis. AoV area at rest by [...] City/State/Zipcode Phone Number [facility] CBC with platelet count + automated diff (03/24/2018 5:11 AM [facility]) WBC 10.9 (H) 3.5 - 10.5 K/L [facility] RBC 3.53 (L) 3.93 - 5.22 M/L [facility] Hemoglobin 9.9 (L) 11.2 - 15.7 GM/DL [facility] Hematocrit 31.7 (L) 34.1 - 44.9 % [facility] MCV 89.8 79.4 - 94.8 fL [facility] MCH 28.0 25.6 - 32.2 pg [facility] MCHC 31.2 (L) 32.2 - 35.5 GM/DL [facility] RDW 17.8 (H) 11.7 - 14.4 % [facility] Platelets 365 150 - 450 K/CU MM [facility] MPV 10.4 9.4 - 12.3 fL [facility] nRBC 0 0 - 0 /100 WBC [facility] % Neutros 75 % [facility] % Lymphs 12 % [facility] % Monos 9 % [facility] % Eos 3 % [facility] % Baso 0 % [facility] # Neutros 8.15 (H) 1.56 - 6.13 K/L [facility] # Lymphs 1.32 1.18 - 3.74 K/L [facility] # Monos 0.94 (H) 0.24 - 0.36 K/L [facility] # Eos 0.32 0.04 - 0.36 K/L [facility] # Baso 0.04 0.01 - 0.08 K/L [facility] Immature Granulocytes-Relative 1 0 - 1 % [facility] Specimen Blood Performing Organization Address City/State/Zipcode Phone Number [facility] [address] [place] [address] [phone] CENTER Comprehensive metabolic panel (03/24/2018 5:11 AM [facility]ER) Protein, Total 6.4 6.0 - 8.3 gm/dL [facility] Albumin 2.8 (L) 3.5 - 5.0 g/dL [facility] Alkaline Phosphatase 108 40 - 150 U/L [facility] Total Bilirubin 0.4 0.2 - 1.2 mg/dL [facility] Sodium 129 (L) 136 - 145 meq/L [facility] Potassium 3.3 (L) 3.5 - 5.1 meq/L [facility] Chloride 99 98 - 107 meq/L [facility] CO2 21 (L) 22 - 29 meq/L [facility] BUN 47 (H) 7 - 21 mg/dL [facility] Creatinine 3.80 (H) 0.57 - 1.25 mg/dL [facility] Glucose 103 70 - 105 mg/dL [facility] Calcium 9.6 8.4 - 10.2 mg/dL [facility] AST 46 (H) 5 - 34 U/L [facility] ALT 49 6 - 55 U/L [facility] EGFR Comment: INSUFFICIENT mL/min/1.73 sq m [facility] DATA TO [facility] CALCULATE ESTIMATED GFR. Specimen Blood Performing Organization Address [facility] Phone Number [address] [address] CENTER Troponin I (03/23/2018 8:43 PM [facility]) Troponin I 1.89 (HH) 0.00 - 0.03 ng/mL [facility] Specimen Blood Narrative Performed At Troponin I (TnI) levels must be interpreted [facility] in the context of the presenting symptoms [...] and persistent tachyarrhythmia. Fasting Performing Organization Address [facility] Phone Number [place] [id number] [place] [address] [phone] CENTER Platelet count (03/23/2018 8:43 PM [employer]) Platelets 364 150 - 450 K/CU MM [facility] Specimen Blood Performing Organization Address City/[facility]/Zipcode Phone Number [facility] [address] [place], [place] [phone] CENTER B-type Natriuretic Factor (BNP) (03/23/2018 8:43 PM [employer]) BNP 2,021 (H) 0 - 100 pg/mL [facility] Specimen Blood Performing Organization Address [facility] Hospital[facility] Phone Number [facility] [address] [place], [place] [phone] [place] Lipid panel (03/23/2018 8:43 PM [employer]) Triglycerides 132 mg/dL [facility] Cholesterol 103 mg/dL [facility] HDL 24 mg/dL [facility] LDL Calculated 53 mg/dL [facility] Specimen Blood Narrative Performed At Triglyceride Reference Range: [facility] Low Risk <150 Roonubnmtf330-276 High Risk 200-499 Very High Risk>=500 Cholesterol Reference Range: Low Risk <200 Swbttvxxff523-594 High Risk>240 HDL Cholesterol Reference Range: Low Risk >=60 High Risk <40 LDL Cholesterol Reference Range: Optimal<100 Near Uxlwdtx645-977 Vzurwqkhdl269-944 Linf987-433 Very High >=190 Fasting Performing Organization Address City/[facility] Phone Number [place] [id number] [place], [place] [phone] CENTER after 04/07/2017 Insurance Payer Benefit Plan / Group Subscriber ID Type Phone Address MEDICARE MEDICARE A B xxxxxxxxxx Medicare Advance Directives For more information, please contact:[address] [phone] Code Status Date Activated Date Inactivated Comments Full Code 03/23/2018 8:26 PM This code status was determined by: Patient
--- OUTSIDE RECORDS SUMMARY | 2018-04-08 00:16 | XMS REPORT ---
:1935 Author Organization [facility] Address [facility] [place] [address] Care Team Providers Name Role Phone RENÉE [...] (BEAKER) (test 148 mg/dL 70-110 TESTED AT [facility] [address] [facility] haaq=[id number]) [facility] [address] BASIC METABOLIC [id number] 09:04:00 Test Item Value Reference Range Comments SODIUM (BEAKER) (test 135 meq/L 136-145 ewwo=768) POTASSIUM (BEAKER) (test 4.0 meq/L 3.5-5.1 vqnb=315) CHLORIDE (BEAKER) (test 103 meq/L 98-107 wwwy=756) CO2 (BEAKER) (test 24 meq/L 22-29 jwsv=093) BLOOD UREA NITROGEN 23 mg/dL 7-21 (BEAKER) (test czpb=784) CREATININE (BEAKER) (test 2.91 mg/dL 0.57-1.25 blak=620) GLUCOSE RANDOM (BEAKER) 108 mg/dL 70-105 (test kqnv=324) CALCIUM (BEAKER) (test 9.1 mg/dL 8.4-10.2 hzzq=770) EGFR (BEAKER) (test 16 mL/min/1.73 sq m ESTIMATED GFR IS NOT dqxe=7360) ACCURATE CREATININE CLEARANCE IN PREDICTING GLOMERULAR FILTRATION RATE. ESTIMATED GFR IS NOT APPLICABLE FOR DIALYSIS PATIENTS. Please draw today if not done already.POCT-GLUCOSE [id number] 08:48:00 Test Item Value Reference Range Comments POC-GLUCOSE METER (BEAKER) 127 mg/dL 70-110 TESTED AT [address] (test aotp=6553) [facility] [address] [id number] 08:14:00 Test Item Value Reference Range Comments MAGNESIUM (BEAKER) (test aojq=128) 1.8 mg/dL 1.6-2.6 Please draw today if not done already.CBC (HEMOGRAM ONLY)2018-03-29 07:56:00 Test Item Value Reference Range Comments WHITE BLOOD CELL COUNT (BEAKER) (test ivgz=312) 11.9 K/ L 3.5-10.5 RED BLOOD CELL COUNT (BEAKER) (test oyhp=424) 3.64 M/ L 3.93-5.22 HEMOGLOBIN (BEAKER) (test vjsw=861) 10.3 GM/DL 11.2-15.7 HEMATOCRIT (BEAKER) (test tvuj=166) 32.7 % 34.1-44.9 MEAN CORPUSCULAR VOLUME (BEAKER) (test gpsv=500) 89.8 fL 79.4-94.8 MEAN CORPUSCULAR HEMOGLOBIN (BEAKER) (test 28.3 pg 25.6-32.2 ttlo=952) MEAN CORPUSCULAR HEMOGLOBIN CONC (BEAKER) (test 31.5 GM/DL 32.2-35.5 brob=385) RED CELL DISTRIBUTION WIDTH (BEAKER) (test 17.7 % 11.7-14.4 aeyg=215) PLATELET COUNT (BEAKER) (test opwy=688) 359 K/CU MM 150-450 MEAN PLATELET VOLUME (BEAKER) (test dgbi=646) 10.1 fL 9.4-12.3 NUCLEATED RED BLOOD CELLS (BEAKER) (test 0 /100 WBC 0-0 zzlr=039) POCT-GLUCOSE [id number] 23:20:00 Test Item Value Reference Range Comments POC-GLUCOSE METER (BEAKER) 181 mg/dL 70-110 TESTED AT [address] (test ktxl=1095) [facility] [address] POCT-GLUCOSE [id number] 18:54:00 Test Item Value Reference Range Comments POC-GLUCOSE METER (BEAKER) 162 mg/dL 70-110 TESTED AT [address] (test rbgj=9931) [place] [id number] C. DIFFICILE GDH [id number] 16:18:00 Test Item Value Reference Range Comments CDT TOXIN (test Negative Negative eozu=[id number]) CDT GDH ANTIGEN (test Negative Negative No indication of Clostridium vxgn=[id number]) difficile infection and no colonization. Discontinue enteric isolation and therapy. Testing performed by [employer] Rapid Cassette Assay. For GDH, published sensitivity of the assay is 98.7% compared to cytotoxicity testing. For Toxin AB, published sensitivity is 87.8% and specificity 99.4% compared to cytotoxicity testing.Verification of kit performance was done by the [facility] Microbiology Lab prior to clinical use.POCT-GLUCOSE [id number] 15:35:00 Test Item Value Reference Range Comments POC-GLUCOSE METER (BEAKER) 162 mg/dL 70-110 TESTED AT [address] (test trsr=4018) [place] [address] POCT-GLUCOSE [id number] 14:06:00 Test Item Value Reference Range Comments POC-GLUCOSE METER (BEAKER) 175 mg/dL 70-110 TESTED AT [address] (test fpco=8266) [place] [address] POCT-GLUCOSE [id number] 10:16:00 Test Item Value Reference Range Comments POC-GLUCOSE METER (BEAKER) 163 mg/dL 70-110 TESTED AT [address] (test zppf=8003) [place] [id number] BASIC METABOLIC [id number] 06:00:00 Test Item Value Reference Range Comments SODIUM (BEAKER) (test 132 meq/L 136-145 ubqs=313) POTASSIUM (BEAKER) (test 4.1 meq/L 3.5-5.1 dalk=856) CHLORIDE (BEAKER) (test 101 meq/L 98-107 njvo=068) CO2 (BEAKER) (test 21 meq/L 22-29 tcof=754) BLOOD UREA NITROGEN 40 mg/dL 7-21 (BEAKER) (test qhjy=539) CREATININE (BEAKER) (test 4.19 mg/dL 0.57-1.25 pjjd=484) GLUCOSE RANDOM (BEAKER) 122 mg/dL 70-105 (test nyjs=739) CALCIUM (BEAKER) (test 9.3 mg/dL 8.4-10.2 ekct=299) EGFR (BEAKER) (test 10 mL/min/1.73 sq m ESTIMATED GFR IS NOT etbp=6375) ACCURATE CREATININE CLEARANCE IN PREDICTING GLOMERULAR FILTRATION RATE. ESTIMATED GFR IS NOT APPLICABLE FOR DIALYSIS PATIENTS. Please draw today if not done already.[id number] 05:59:00 Test Item Value Reference Range Comments MAGNESIUM (BEAKER) (test yqyj=868) 1.8 mg/dL 1.6-2.6 Please draw today if not done already.CBC (HEMOGRAM ONLY)2018-03-28 05:43:00 Test Item Value Reference Range Comments WHITE BLOOD CELL COUNT (BEAKER) (test hjiu=704) 11.3 K/ L 3.5-10.5 RED BLOOD CELL COUNT (BEAKER) (test rofn=299) 3.61 M/ L 3.93-5.22 HEMOGLOBIN (BEAKER) (test sbrk=612) 10.1 GM/DL 11.2-15.7 HEMATOCRIT (BEAKER) (test fqbu=361) 33.2 % 34.1-44.9 MEAN CORPUSCULAR VOLUME (BEAKER) (test hyvm=823) 92.0 fL 79.4-94.8 MEAN CORPUSCULAR HEMOGLOBIN (BEAKER) (test 28.0 pg 25.6-32.2 zxek=571) MEAN CORPUSCULAR HEMOGLOBIN CONC (BEAKER) (test 30.4 GM/DL 32.2-35.5 ptfc=734) RED CELL DISTRIBUTION WIDTH (BEAKER) (test 18.2 % 11.7-14.4 xlbr=594) PLATELET COUNT (BEAKER) (test azzk=965) 357 K/CU MM 150-450 MEAN PLATELET VOLUME (BEAKER) (test lfll=454) 9.7 fL 9.4-12.3 NUCLEATED RED BLOOD CELLS (BEAKER) (test 0 /100 WBC 0-0 lwbb=085) POCT-GLUCOSE [id number] 22:08:00 Test Item Value Reference Range Comments POC-GLUCOSE METER (BEAKER) 154 mg/dL 70-110 TESTED AT [address] (test xymk=0672) [facility] [address] POCT-GLUCOSE [id number] 17:45:00 Test Item Value Reference Range Comments POC-GLUCOSE METER (BEAKER) 215 mg/dL 70-110 TESTED AT [address] (test lwpd=9972) [place] [address] ANG, AV-SHUNT, CATH INTRO WITH [id number] 16:13:00Reason for exam:-> LUE clotted hemodialysis vascular [...] MDReport Verified Date/Time: 03/27/2018 16:13:07 Reading Location: [place] [address] Angio Body Reading Room POCT-GLUCOSE [id number] 13:21:00 Test Item Value Reference Range Comments POC-GLUCOSE METER (BEAKER) 201 mg/dL 70-110 TESTED AT [address] (test dqjc=5382) [place] [address] POCT-GLUCOSE [id number] 09:57:00 Test Item Value Reference Range Comments POC-GLUCOSE METER (BEAKER) 95 mg/dL 70-110 TESTED AT [address] (test nykf=3433) [place] [address] BASIC METABOLIC [id number] 06:47:00 Test Item Value Reference Range Comments SODIUM (BEAKER) (test 132 meq/L 136-145 vxxm=682) POTASSIUM (BEAKER) (test 3.7 meq/L 3.5-5.1 qpfg=140) CHLORIDE (BEAKER) (test 103 meq/L 98-107 hafu=262) CO2 (BEAKER) (test 20 meq/L 22-29 ewjl=930) BLOOD UREA NITROGEN 26 mg/dL 7-21 (BEAKER) (test eryr=027) CREATININE (BEAKER) (test 3.15 mg/dL 0.57-1.25 redz=126) GLUCOSE RANDOM (BEAKER) 100 mg/dL 70-105 (test fxzc=663) CALCIUM (BEAKER) (test 8.9 mg/dL 8.4-10.2 lvzq=229) EGFR (BEAKER) (test mL/min/1.73 sq m INSUFFICIENT CLINICAL DATA vjex=5434) TO CALCULATE ESTIMATED GFR. Please draw today if not done already.[id number] 06:38:00 Test Item Value Reference Range Comments MAGNESIUM (BEAKER) (test ygod=148) 1.8 mg/dL 1.6-2.6 Please draw today if not done already.CBC (HEMOGRAM ONLY)2018-03-27 06:11:00 Test Item Value Reference Range Comments WHITE BLOOD CELL COUNT (BEAKER) (test uqtb=369) 10.8 K/ L 3.5-10.5 RED BLOOD CELL COUNT (BEAKER) (test jxpl=485) 3.55 M/ L 3.93-5.22 HEMOGLOBIN (BEAKER) (test gyts=251) 9.9 GM/DL 11.2-15.7 HEMATOCRIT (BEAKER) (test bfip=422) 32.3 % 34.1-44.9 MEAN CORPUSCULAR VOLUME (BEAKER) (test bgft=924) 91.0 fL 79.4-94.8 MEAN CORPUSCULAR HEMOGLOBIN (BEAKER) (test 27.9 pg 25.6-32.2 bszq=580) MEAN CORPUSCULAR HEMOGLOBIN CONC (BEAKER) (test 30.7 GM/DL 32.2-35.5 swkm=590) RED CELL DISTRIBUTION WIDTH (BEAKER) (test 18.0 % 11.7-14.4 uonk=309) PLATELET COUNT (BEAKER) (test umqw=853) 362 K/CU MM 150-450 MEAN PLATELET VOLUME (BEAKER) (test kzdm=459) 10.0 fL 9.4-12.3 NUCLEATED RED BLOOD CELLS (BEAKER) (test 0 /100 WBC 0-0 udhd=820) POCT-GLUCOSE [id number] 23:30:00 Test Item Value Reference Range Comments POC-GLUCOSE METER (BEAKER) 116 mg/dL 70-110 TESTED AT [address] (test lfhz=4391) [place] [address] POCT-GLUCOSE [id number] 17:47:00 Test Item Value Reference Range Comments POC-GLUCOSE METER (BEAKER) 146 mg/dL 70-110 TESTED AT [address] (test ymgw=3519) [place] [address] [id number] 15:23:00 Test Item Value Reference Range Comments PHOSPHORUS (BEAKER) (test bznr=969) 2.0 mg/dL 2.3-4.7 POCT-GLUCOSE [id number] 14:54:00 Test Item Value Reference Range Comments POC-GLUCOSE METER (BEAKER) 127 mg/dL 70-110 TESTED AT [address] (test pgpz=8239) [place] [address] HEPATITIS B SURFACE [id number] 10:46:00 Test Item Value Reference Range Comments HEPATITIS B SURFACE ANTIGEN (2) (BEAKER) (test Nonreactive Nonreactive ncph=9398) POCT-GLUCOSE [id number] 09:05:00 Test Item Value Reference Range Comments POC-GLUCOSE METER (BEAKER) 145 mg/dL 70-110 TESTED AT [address] (test rqvd=1674) [place] [address] BASIC METABOLIC [id number] 06:36:00 Test Item Value Reference Range Comments SODIUM (BEAKER) (test 125 meq/L 136-145 zsrk=079) POTASSIUM (BEAKER) (test 4.2 meq/L 3.5-5.1 vqoq=406) CHLORIDE (BEAKER) (test 93 meq/L 98-107 miac=723) CO2 (BEAKER) (test 19 meq/L 22-29 bani=073) BLOOD UREA NITROGEN 75 mg/dL 7-21 (BEAKER) (test izpk=827) CREATININE (BEAKER) (test 5.98 mg/dL 0.57-1.25 jbix=881) GLUCOSE RANDOM (BEAKER) 119 mg/dL 70-105 (test eqji=051) CALCIUM (BEAKER) (test 9.2 mg/dL 8.4-10.2 exim=720) EGFR (BEAKER) (test mL/min/1.73 sq m INSUFFICIENT CLINICAL DATA ahxx=1978) TO CALCULATE ESTIMATED GFR. Please draw today if not done already.[id number] 06:25:00 Test Item Value Reference Range Comments MAGNESIUM (BEAKER) (test ycjt=386) 1.9 mg/dL 1.6-2.6 Please draw today if not done already.PROTHROMBIN [id number] 05:41:00 Test Item Value Reference Range Comments PROTIME (BEAKER) (test daax=898) 14.8 seconds 11.7-14.7 INR (BEAKER) (test qnqi=981) 1.2 <=5.9 RECOMMENDED COUMADIN/WARFARIN INR THERAPY RANGESSTANDARD DOSE: 2.0 - 3.0 Includes: PROPHYLAXIS forvenous thrombosis, systemic embolization; TREATMENT for venous thrombosis and/or pulmonary embolus.HIGH RISK: Target INR is 2.5-3.5 for patients with mechanical heart valves.CBC (HEMOGRAM ONLY)2018-03-26 05:36:00 Test Item Value Reference Range Comments WHITE BLOOD CELL COUNT (BEAKER) (test tikd=235) 12.0 K/ L 3.5-10.5 RED BLOOD CELL COUNT (BEAKER) (test yyhj=158) 3.53 M/ L 3.93-5.22 HEMOGLOBIN (BEAKER) (test lpmi=996) 10.0 GM/DL 11.2-15.7 HEMATOCRIT (BEAKER) (test wysn=663) 31.6 % 34.1-44.9 MEAN CORPUSCULAR VOLUME (BEAKER) (test ikbx=472) 89.5 fL 79.4-94.8 MEAN CORPUSCULAR HEMOGLOBIN (BEAKER) (test 28.3 pg 25.6-32.2 qmiq=059) MEAN CORPUSCULAR HEMOGLOBIN CONC (BEAKER) (test 31.6 GM/DL 32.2-35.5 qosf=148) RED CELL DISTRIBUTION WIDTH (BEAKER) (test 17.7 % 11.7-14.4 rcrz=270) PLATELET COUNT (BEAKER) (test jrpa=402) 401 K/CU MM 150-450 MEAN PLATELET VOLUME (BEAKER) (test vuqw=350) 10.6 fL 9.4-12.3 NUCLEATED RED BLOOD CELLS (BEAKER) (test 0 /100 WBC 0-0 pwoa=371) [id number] 02:04:00 Test Item Value Reference Range Comments PARTIAL THROMBOPLASTIN TIME (BEAKER) (test 60.2 seconds 22.5-36.0 swxl=389) POCT-GLUCOSE [id number] 20:52:00 Test Item Value Reference Range Comments POC-GLUCOSE METER (BEAKER) 153 mg/dL 70-110 TESTED AT [address] (test euam=5463) [place] [address] [id number] 18:30:00 Test Item Value Reference Range Comments PARTIAL THROMBOPLASTIN TIME (BEAKER) (test 78.9 seconds 22.5-36.0 pexd=679) POCT-GLUCOSE [id number] 17:26:00 Test Item Value Reference Range Comments POC-GLUCOSE METER (BEAKER) 148 mg/dL 70-110 TESTED AT [address] (test srib=7794) [place] [address] POCT-GLUCOSE [id number] 12:32:00 Test Item Value Reference Range Comments POC-GLUCOSE METER (BEAKER) 186 mg/dL 70-110 TESTED AT [address] (test xssh=9556) [place] [address] [id number] 12:22:00 Test Item Value Reference Range Comments PARTIAL THROMBOPLASTIN TIME (BEAKER) (test 98.1 seconds 22.5-36.0 japw=701) POCT-GLUCOSE [id number] 08:04:00 Test Item Value Reference Range Comments POC-GLUCOSE METER (BEAKER) 139 mg/dL 70-110 TESTED AT [address] (test uflq=5674) [place] [address] IRON, TIBC, % SAT. (WITHOUT FERRITIN)2018-03-25 05:38:00 Test Item Value Reference Range Comments IRON (BEAKER) (test mzdp=833) 29.0 ug/dL 40.0-160.0 TOTAL IRON BINDING CAPACITY (BEAKER) (test 123 ug/dL 250-450 bsyx=994) IRON % SATURATION (2) (BEAKER) (test fjwo=5393) 24 % 20-55 BASIC METABOLIC [id number] 05:29:00 Test Item Value Reference Range Comments SODIUM (BEAKER) (test 128 meq/L 136-145 uwjz=260) POTASSIUM (BEAKER) (test 4.1 meq/L 3.5-5.1 vkzn=573) CHLORIDE (BEAKER) (test 98 meq/L 98-107 ksqh=221) CO2 (BEAKER) (test 18 meq/L 22-29 fcbe=649) BLOOD UREA NITROGEN 57 mg/dL 7-21 (BEAKER) (test dfnm=940) CREATININE (BEAKER) (test 4.80 mg/dL 0.57-1.25 stdb=400) GLUCOSE RANDOM (BEAKER) 105 mg/dL 70-105 (test bqzv=454) CALCIUM (BEAKER) (test 9.5 mg/dL 8.4-10.2 weap=979) EGFR (BEAKER) (test mL/min/1.73 sq m INSUFFICIENT CLINICAL DATA eqaj=8269) TO CALCULATE ESTIMATED GFR. Please draw today if not done already.[id number] 05:15:00 Test Item Value Reference Range Comments MAGNESIUM (BEAKER) (test jwcq=074) 1.8 mg/dL 1.6-2.6 Please draw today if not done already.[id number] 04:56:00 Test Item Value Reference Range Comments PARTIAL THROMBOPLASTIN TIME (BEAKER) (test 90.6 seconds 22.5-36.0 mcft=696) PROTHROMBIN [id number] 04:55:00 Test Item Value Reference Range Comments PROTIME (BEAKER) (test uewp=395) 15.0 seconds 11.7-14.7 INR (BEAKER) (test wnju=504) 1.1 <=5.9 RECOMMENDED COUMADIN/WARFARIN INR THERAPY RANGESSTANDARD DOSE: 2.0 - 3.0 Includes: PROPHYLAXIS forvenous thrombosis, systemic embolization; TREATMENT for venous thrombosis and/or pulmonary embolus.HIGH RISK: Target INR is 2.5-3.5 for patients with mechanical heart valves.CBC (HEMOGRAM ONLY)2018-03-25 04:50:00 Test Item Value Reference Range Comments WHITE BLOOD CELL COUNT (BEAKER) (test gxsu=198) 10.2 K/ L 3.5-10.5 RED BLOOD CELL COUNT (BEAKER) (test apmp=804) 3.76 M/ L 3.93-5.22 HEMOGLOBIN (BEAKER) (test fdmx=701) 10.6 GM/DL 11.2-15.7 HEMATOCRIT (BEAKER) (test yjhz=667) 33.9 % 34.1-44.9 MEAN CORPUSCULAR VOLUME (BEAKER) (test ojqx=285) 90.2 fL 79.4-94.8 MEAN CORPUSCULAR HEMOGLOBIN (BEAKER) (test 28.2 pg 25.6-32.2 yzqp=050) MEAN CORPUSCULAR HEMOGLOBIN CONC (BEAKER) (test 31.3 GM/DL 32.2-35.5 mrsq=764) RED CELL DISTRIBUTION WIDTH (BEAKER) (test 17.9 % 11.7-14.4 ycso=529) PLATELET COUNT (BEAKER) (test grnq=394) 389 K/CU MM 150-450 MEAN PLATELET VOLUME (BEAKER) (test qwdt=171) 9.9 fL 9.4-12.3 NUCLEATED RED BLOOD CELLS (BEAKER) (test 0 /100 WBC 0-0 wbfl=692) [id number] 22:51:00 Test Item Value Reference Range Comments PARTIAL THROMBOPLASTIN TIME (BEAKER) (test 58.5 seconds 22.5-36.0 ckho=031) POCT-GLUCOSE [id number] 21:34:00 Test Item Value Reference Range Comments POC-GLUCOSE METER (BEAKER) 191 mg/dL 70-110 TESTED AT [address] (test dfoh=3352) [place] [address] POCT-GLUCOSE [id number] 17:43:00 Test Item Value Reference Range Comments POC-GLUCOSE METER (BEAKER) 171 mg/dL 70-110 TESTED AT [address] (test rwct=3243) [place] [address] [id number] 13:32:00 Test Item Value Reference Range Comments PARTIAL THROMBOPLASTIN TIME (BEAKER) (test 63.7 seconds 22.5-36.0 arik=143) POCT-GLUCOSE [id number] 12:45:00 Test Item Value Reference Range Comments POC-GLUCOSE METER (BEAKER) 81 mg/dL 70-110 TESTED AT [address] (test nvdj=2851) [place] [id number] POCT-GLUCOSE [id number] 07:44:00 Test Item Value Reference Range Comments POC-GLUCOSE METER (BEAKER) 128 mg/dL 70-110 TESTED AT [facility] [address] (test snja=3284) [place] [address] CBC W/PLT COUNT & AUTO [id number] 07:43:00 Test Item Value Reference Range Comments WHITE BLOOD CELL COUNT (BEAKER) (test dhkg=585) 10.9 K/ L 3.5-10.5 RED BLOOD CELL COUNT (BEAKER) (test xaym=981) 3.53 M/ L 3.93-5.22 HEMOGLOBIN (BEAKER) (test dywh=022) 9.9 GM/DL 11.2-15.7 HEMATOCRIT (BEAKER) (test gfmg=461) 31.7 % 34.1-44.9 MEAN CORPUSCULAR VOLUME (BEAKER) (test yqsz=555) 89.8 fL 79.4-94.8 MEAN CORPUSCULAR HEMOGLOBIN (BEAKER) (test 28.0 pg 25.6-32.2 bagt=843) MEAN CORPUSCULAR HEMOGLOBIN CONC (BEAKER) (test 31.2 GM/DL 32.2-35.5 miho=282) RED CELL DISTRIBUTION WIDTH (BEAKER) (test 17.8 % 11.7-14.4 mrxe=768) PLATELET COUNT (BEAKER) (test etmc=277) 365 K/CU MM 150-450 MEAN PLATELET VOLUME (BEAKER) (test jjul=796) 10.4 fL 9.4-12.3 NUCLEATED RED BLOOD CELLS (BEAKER) (test 0 /100 WBC 0-0 ohav=010) NEUTROPHILS RELATIVE PERCENT (BEAKER) (test 75 % ubni=947) LYMPHOCYTES RELATIVE PERCENT (BEAKER) (test 12 % bdtu=350) MONOCYTES RELATIVE PERCENT (BEAKER) (test 9 % ybok=127) EOSINOPHILS RELATIVE PERCENT (BEAKER) (test 3 % lwep=071) BASOPHILS RELATIVE PERCENT (BEAKER) (test 0 % xhkq=745) NEUTROPHILS ABSOLUTE COUNT (BEAKER) (test 8.15 K/ L 1.56-6.13 ftfa=499) LYMPHOCYTES ABSOLUTE COUNT (BEAKER) (test 1.32 K/ L 1.18-3.74 hbyb=025) MONOCYTES ABSOLUTE COUNT (BEAKER) (test 0.94 K/ L 0.24-0.36 ezto=740) EOSINOPHILS ABSOLUTE COUNT (BEAKER) (test 0.32 K/ L 0.04-0.36 ykrc=712) BASOPHILS ABSOLUTE COUNT (BEAKER) (test 0.04 K/ L 0.01-0.08 ammv=539) IMMATURE GRANULOCYTES-RELATIVE PERCENT (BEAKER) 1 % 0-1 (test owgc=6592) COMPREHENSIVE METABOLIC [id number] 06:39:00 Test Item Value Reference Range Comments TOTAL PROTEIN (BEAKER) 6.4 gm/dL 6.0-8.3 (test akda=722) ALBUMIN (BEAKER) (test 2.8 g/dL 3.5-5.0 ulzv=4155) ALKALINE PHOSPHATASE 108 U/L 40-150 (BEAKER) (test aeql=108) BILIRUBIN TOTAL (BEAKER) 0.4 mg/dL 0.2-1.2 (test ovzx=274) SODIUM (BEAKER) (test 129 meq/L 136-145 xegf=766) POTASSIUM (BEAKER) (test 3.3 meq/L 3.5-5.1 terb=029) CHLORIDE (BEAKER) (test 99 meq/L 98-107 qnys=545) CO2 (BEAKER) (test 21 meq/L 22-29 lxzu=667) BLOOD UREA NITROGEN 47 mg/dL 7-21 (BEAKER) (test opws=645) CREATININE (BEAKER) (test 3.80 mg/dL 0.57-1.25 tjwy=430) GLUCOSE RANDOM (BEAKER) 103 mg/dL 70-105 (test uhov=056) CALCIUM (BEAKER) (test 9.6 mg/dL 8.4-10.2 nija=075) AST (SGOT) (BEAKER) (test 46 U/L 5-34 pdyx=937) ALT (SGPT) (BEAKER) (test 49 U/L 6-55 kage=032) EGFR (BEAKER) (test mL/min/1.73 sq m INSUFFICIENT CLINICAL DATA siuk=8394) TO CALCULATE ESTIMATED GFR. [id number] 06:31:00 Test Item Value Reference Range Comments PHOSPHORUS (BEAKER) (test rheu=560) 3.2 mg/dL 2.3-4.7 [id number] 06:31:00 Test Item Value Reference Range Comments MAGNESIUM (BEAKER) (test miym=594) 1.7 mg/dL 1.6-2.6 PROTHROMBIN [id number] 06:12:00 Test Item Value Reference Range Comments PROTIME (BEAKER) (test ckyl=388) 16.3 seconds 11.7-14.7 INR (BEAKER) (test hwuh=150) 1.3 <=5.9 RECOMMENDED COUMADIN/WARFARIN INR THERAPY RANGESSTANDARD DOSE: 2.0 - 3.0 Includes: PROPHYLAXIS forvenous thrombosis, systemic embolization; TREATMENT for venous thrombosis and/or pulmonary embolus.HIGH RISK: Target INR is 2.5-3.5 for patients with mechanical heart valves.[id number] 06:12:00 Test Item Value Reference Range Comments PARTIAL THROMBOPLASTIN TIME (BEAKER) (test 92.6 seconds 22.5-36.0 tnpn=831) CBC (HEMOGRAM ONLY)2018-03-24 05:58:00 Test Item Value Reference Range Comments WHITE BLOOD CELL COUNT (BEAKER) (test byle=201) 10.9 K/ L 3.5-10.5 RED BLOOD CELL COUNT (BEAKER) (test ajzq=618) 3.53 M/ L 3.93-5.22 HEMOGLOBIN (BEAKER) (test ekgr=436) 9.9 GM/DL 11.2-15.7 HEMATOCRIT (BEAKER) (test airh=711) 31.7 % 34.1-44.9 MEAN CORPUSCULAR VOLUME (BEAKER) (test taqe=715) 89.8 fL 79.4-94.8 MEAN CORPUSCULAR HEMOGLOBIN (BEAKER) (test 28.0 pg 25.6-32.2 soca=224) MEAN CORPUSCULAR HEMOGLOBIN CONC (BEAKER) (test 31.2 GM/DL 32.2-35.5 aljw=174) RED CELL DISTRIBUTION WIDTH (BEAKER) (test 17.8 % 11.7-14.4 caqx=484) PLATELET COUNT (BEAKER) (test otvw=209) 365 K/CU MM 150-450 MEAN PLATELET VOLUME (BEAKER) (test dgxw=458) 10.4 fL 9.4-12.3 NUCLEATED RED BLOOD CELLS (BEAKER) (test 0 /100 WBC 0-0 dkwt=942) POCT-GLUCOSE [id number] 22:41:00 Test Item Value Reference Range Comments POC-GLUCOSE METER (Consensus PointAKER) 171 mg/dL 70-110 TESTED AT [facility] [address] (test ijym=8133) [place] [address] TROPONIN [id number] 21:23:00 Test Item Value Reference Range Comments TROPONIN I (BEAKER) (test jyxm=817) 1.89 ng/mL 0.00-0.03 Troponin I (TnI) levels [...] NATRIURETIC PEPTIDE (BEAKER) (test 2021 pg/mL 0-100 znte=805) LIPID [id number] 21:09:00 Test Item Value Reference Range Comments TRIGLYCERIDES (BEAKER) (test kgkf=087) 132 mg/dL CHOLESTEROL (BEAKER) (test ukgv=518) 103 mg/dL HDL CHOLESTEROL (BEAKER) (test eqic=387) 24 mg/dL LDL CHOLESTEROL CALCULATED (BEAKER) (test 53 mg/dL jwjr=079) Triglyceride Reference Range: Low Risk <150 Borderline 150- 199 High Risk 200-499 Very High Risk >=500Cholesterol Reference Range: Low Risk <200 Borderline 200-239 High Risk > 240HDL Cholesterol Reference Range: Low Risk >=60 High Risk <40LDL Cholesterol Reference Range: Optimal <100 Near Optimal 100-129 Borderline 130-159 High 160-189 Very High >=190 [id number] 21:08:00 Test Item Value Reference Range Comments PARTIAL THROMBOPLASTIN TIME (BEAKER) (test 107.2 seconds 22.5-36.0 curj=573) Prior to initiating heparinPLATELET [id number] 20:54:00 Test Item Value Reference Range Comments PLATELET COUNT (BEAKER) (test jtcu=802) 364 K/CU MM 150-450
[2018-04-08 02:15] LABS: Protime INR 1.2
[2018-04-08 02:18] LABS: Absolute Lymphocytes (CBC) 1.4 K/uL (0.7-4.9); Absolute Monocytes 1.4 K/uL (0.1-1.3); Absolute Neutrophil 16.7 K/uL (1.8-8.0); Basophils % 0.4 % (0-1.3); Eosinophils % 1.2 % (0-4.4); Hematocrit 34.3 % (36.0-45.0); Lymphocytes % 7.2 % (15.3-44.8); MPV 8.7 fL (7.6-11.3); Monocytes % 6.8 % (3.3-12.3); RBC Red Blood Cell Count 3.85 M/uL (3.86-4.86)
[2018-04-08 02:24] LABS: Potassium 4.5 mmol/L (3.5-5.1)
--- NOTE | 2018-04-08 02:57 | EDPHYS ---
Physician Documentation [facility] Name: Dianelys Carroll Age: 82 yrs Sex: Female : 1935 Arrival Date: 04/08/2018 Time: 00:12 Bed 4 Private MD: ED Physician Pop Howard HPI: 04/08 00:54 This 82 yrs old Female presents to ER via EMS with complaints of fall, AMS. rn 00:54 Details of fall: The patient fell from seated position, out of a wheelchair. Onset: The rn symptoms/episode began/occurred just prior to arrival. Associated injuries: The patient sustained right arm, head. Severity of symptoms: At their worst the symptoms were mild, in the emergency department the symptoms are unchanged. It is unknown whether or not the patient has had similar symptoms in the past. Per Report, patient fell trying to get out of wheelchair, states hit her head, no LOC, no vomiting, family reports noticed some hallucinations today, no fever, no chest pain/sob/abd pain. . Historical: - Allergies: 00:34 clopidogrel bisulfate; lp1 00:34 Codeine; lp1 00:34 enalapril maleate; lp1 00:34 hydrocodone; lp1 00:34 Morphine; lp1 00:34 Ramipril; lp1 00:34 Simvastatin; lp1 00:34 altase; lp1 00:34 Demerol; lp1 00:34 enalaprilat dihydrate; lp1 00:34 Ibuprofen; lp1 00:34 OPIATES; lp1 00:34 propoxyphene napsylate; lp1 00:34 Vioxx; lp1 - Home Meds: 00:42 Aranesp (in polysorbate) 40 mcg/0.4 mL injection syrg once wkly for Anemia in Chronic lp1 Kidney Disease [Active]; aspirin 81 mg Oral TbEC 1 tab once daily [Active]; atorvastatin 40 mg oral tab nightly [Active]; citalopram 20 mg CERP 1 tab once daily for Anxiety with Depression [Active]; clonidine HCl 0.1 mg Oral CERP 1 tab 2 times per day for Hypertension [Active]; Effient 10 mg Oral CERP 1 tab once daily [Active]; Folbee Plus oral oral once daily [Active]; 00:49 gabapentin 300 mg Oral cap 1 cap 3 times per day [Active]; latanoprost 0.005 % lp1 ophthalmic drop 1 drop nightly [Active]; lisinopril 20 mg Oral CERP 1 tab once daily [Active]; metoprolol tartrate 25 mg Oral tab 1 tab 2 times per day [Active]; Ativan 1 mg Oral CERP 1 tab Every 2 hours for Anxiety [Active]; Novolin R Sub-Q every 4 hours for Diabetes [Active]; Ranexa 500 mg oral Tb12 1 tab 2 times per day [Active]; tramadol 50 mg Oral CERP 1 tab every 6 hours [Active]; - PMHx: 00:34 hallucinations; Candidiasis; Myocardial infarction; Anemia; ESRD; dysphagia; Diabetes - lp1 IDDM; Hyperlipidemia; hypomagnesemia; Depression; Anxiety; Glaucoma; Hypertension; TIA; Dementia; Pacemaker; chronic pulmonary edema; Dialysis; - PSHx: 00:34 L BKA; lp1 - Immunization history:: Adult Immunizations up to date. - Social history:: Smoking status: unknown. - Ebola Screening: : No symptoms or risks identified at this time. - Family history:: not pertinent. - Hospitalizations: : The patient was recently seen at [facility]. ROS: 00:54 Constitutional: Negative for fever, chills, and weight loss, Eyes: Negative for injury, rn pain, redness, and discharge, Neck: Negative for injury, pain, and swelling, Cardiovascular: Negative for chest pain, palpitations, and edema, Respiratory: Negative for shortness of breath, cough, wheezing, and pleuritic chest pain, Abdomen/GI: Negative for abdominal pain, nausea, vomiting, diarrhea, and constipation, MS/Extremity: + skin tear right arm Skin: + skin tear right arm Neuro: Negative for headache, weakness, numbness, tingling, and seizure. Exam: 00:54 Constitutional: This is a well developed, well nourished patient who is awake, alert, rn and in no acute distress. Head/Face: Normocephalic, atraumatic. Eyes: No traumatic findings of eyes ENT: dry MM Neck: Trachea midline, no thyromegaly or masses palpated, and no cervical lymphadenopathy. Supple, full range of motion without nuchal rigidity, or vertebral point tenderness. No Meningismus. Cardiovascular: Regular rate and rhythm, No pulse deficits. Respiratory: Lungs have equal breath sounds bilaterally, clear to auscultation, speaking full sentences Abdomen/GI: soft, non-tender Skin: Warm, dry with normal turgor. + chronic dry gangrene right foot MS/ Extremity: No cyanosis, + LLE amputation, + 5cm linear, superficial skin tear right dorsal forearm with underlying ecchymosis, no bony tenderness or deformity, FROM right wrist. Neuro: Awake and alert, GCS 15, oriented to person, thinks is 1970s, and thinks is on a boat, moves all 4 extremities Vital Signs: 00:25 BP 121 / 58; Pulse 77; Resp 20; Temp 98.3(TE); Pulse Ox 100% on R/A; Weight 52.16 kg; lp1 00:50 BP 115 / 82; Pulse 78; Resp 14; Pulse Ox 100% on R/A; lp1 02:00 BP 92 / 45; Pulse 77; Resp 19; Pulse Ox 98% on R/A; lp1 03:00 BP 100 / 51; Pulse 77; Resp 16; Pulse Ox 98% on R/A; lp1 MDM: 00:14 Patient medically screened. rn 02:51 Differential diagnosis: closed head injury, superficial head injury, AMS, sepsis, rn bacteremia. Data reviewed: vital signs, nurses notes, lab test result(s). 02:53 Counseling: I had a detailed discussion with the patient and/or guardian regarding: the rn historical points, exam findings, and any diagnostic results supporting the discharge/admit diagnosis, lab results, radiology results, the need for further work-up and treatment in the hospital. Admission orders: after a detailed discussion of the patient's condition and case, the admit orders are written by me. ED course: Pt with elevated WBC, procalcitonin, pt with dialysis and recent admission will rule out bacteremia/sepsis, admitted to Dr. Brown. Pt without urine on cath, xray shows atelectasis and pleural effusion.. 04/08 00:16 Order name: CBC with Diff; Complete Time: 02:42 rn 04/08 00:16 Order name: Basic Metabolic Panel; Complete Time: 02:42 rn 04/08 00:16 Order name: Protime (+inr); Complete Time: 02:42 rn 04/08 00:16 Order name: Ptt, Activated; Complete Time: 02:42 rn 04/08 00:16 Order name: Urine Culture rn 04/08 00:16 Order name: Urine Microscopic Only rn 04/08 00:16 Order name: Blood Culture Adult (2) rn 04/08 00:16 Order name: CT Head Brain wo Cont rn 04/08 00:16 Order name: XRAY Chest (1 view) rn 04/08 00:16 Order name: EKG; Complete Time: 00:18 rn 04/08 00:16 Order name: Procalcitonin; Complete Time: 02:42 rn 04/08 00:16 Order name: Flu; Complete Time: 02:42 rn 04/08 03:32 Order name: C-Reactive Protein EDAR 04/08 03:32 Order name: Sedimentation Rate, Westergren EDAR 04/08 00:16 Order name: IV Start; Complete Time: 04:26 rn 04/08 00:16 Order name: EKG - Nurse/Tech; Complete Time: 00:58 rn 04/08 00:16 Order name: Wound Care; Complete Time: 00:41 rn Administered Medications: No medications were administered Disposition: 04/08/18 02:56 Hospitalization ordered by Nisha Lee for Inpatient Admission. Preliminary diagnosis are Altered mental status, unspecified, Hallucinations, unspecified. - Bed requested for Telemetry/MedSurg (Inpatient). - Status is Inpatient Admission. ed1 - Condition is Stable. - Problem is new. - Symptoms have improved. UTI on Admission? No Signatures: Dispatcher [employer] EDMS Vanda Mejia RN RN kl Nieto, Roman, MD MD rn Riggs, Erika, AUDIOLOGY DIRECTOR AUDIOLOGY DIRECTOR ed1 Starla Gramajo RN RN lp1 Corrections: (The following items were deleted from the chart) 01:12 00:16 Urine Dipstick-Ancillary ordered. rn ed1 02:05 00:54 Constitutional: This is a well developed, well nourished patient who is awake, rn alert, and in no acute distress. Head/Face: Normocephalic, atraumatic. Eyes: No traumatic findings of eyes ENT: dry MM Neck: Trachea midline, no thyromegaly or masses palpated, and no cervical lymphadenopathy. Supple, full range of motion without nuchal rigidity, or vertebral point tenderness. No Meningismus. Cardiovascular: Regular rate and rhythm, No pulse deficits. Respiratory: Lungs have equal breath sounds bilaterally, clear to auscultation, speaking full sentences Abdomen/GI: soft, non-tender MS/ Extremity: No cyanosis, + LLE amputation Neuro: Awake and alert, GCS 15, oriented to person, thinks is 1970s, and thinks is on a boat, moves all 4 extremities rn 02:55 00:54 Constitutional: This is a well developed, well nourished patient who is awake, rn alert, and in no acute distress. Head/Face: Normocephalic, atraumatic. Eyes: No traumatic findings of eyes ENT: dry MM Neck: Trachea midline, no thyromegaly or masses palpated, and no cervical lymphadenopathy. Supple, full range of motion without nuchal rigidity, or vertebral point tenderness. No Meningismus. Cardiovascular: Regular rate and rhythm, No pulse deficits. Respiratory: Lungs have equal breath sounds bilaterally, clear to auscultation, speaking full sentences Abdomen/GI: soft, non-tender MS/ Extremity: No cyanosis, + LLE amputation, + 5cm linear, superficial skin tear right dorsal forearm with underlying ecchymosis, no bony tenderness or deformity, FROM right wrist. Neuro: Awake and alert, GCS 15, oriented to person, thinks is 1970s, and thinks is on a boat, moves all 4 extremities rn 03:34 00:54 Constitutional: This is a well developed, well nourished patient who is awake, rn alert, and in no acute distress. Head/Face: Normocephalic, atraumatic. Eyes: No traumatic findings of eyes ENT: dry MM Neck: Trachea midline, no thyromegaly or masses palpated, and no cervical lymphadenopathy. Supple, full range of motion without nuchal rigidity, or vertebral point tenderness. No Meningismus. Cardiovascular: Regular rate and rhythm, No pulse deficits. Respiratory: Lungs have equal breath sounds bilaterally, clear to auscultation, speaking full sentences Abdomen/GI: soft, non-tender MS/ Extremity: No cyanosis, + LLE amputation, + 5cm linear, superficial skin tear right dorsal forearm with underlying ecchymosis, no bony tenderness or deformity, FROM right wrist. Neuro: Awake and alert, GCS 15, oriented to person, thinks is 1970s, and thinks is on a boat, moves all 4 extremities rn 03:48 02:56 Hospitalization Ordered by Nisha Lee MD for Inpatient Admission. Preliminary kl diagnosis is Altered mental status, unspecified; Hallucinations, unspecified. Bed requested for Telemetry/MedSurg (Inpatient). Status is Inpatient Admission. Condition is Stable. Problem is new. Symptoms have improved. UTI on Admission? No. rn 04:28 03:48 04/08/2018 02:56 Hospitalization Ordered by Nisha Lee MD for Inpatient ed1 Admission. Preliminary diagnosis is Altered mental status, unspecified; Hallucinations, unspecified. Bed requested for Telemetry/MedSurg (Inpatient). Status is Inpatient Admission. Condition is Stable. Problem is new. Symptoms have improved. UTI on Admission? No. kl
--- NOTE | 2018-04-08 02:57 | ER ---
Nurse's Notes [facility] Name: Dianelys Carroll Age: 82 yrs Sex: Female : 1935 Arrival Date: 04/08/2018 Time: 00:12 Bed 4 Private MD: Diagnosis: Altered mental status, unspecified;Hallucinations, unspecified Presentation: 04/08 00:23 Presenting complaint: EMS states: Patient slid out of wheelchair tonight, skin tear to lp1 right forearm; Per correction and patient's family, patient has been hallucinating since yesterday morning, not acting like self. Transition of care: patient was received from another setting of care (long-term care facility), [facility]. Onset of symptoms was April 07, 2018 at 23:30. Risk Assessment: Do you want to hurt yourself or someone else? Patient reports no desire to harm self or others. Initial Sepsis Screen: Does the patient meet any 2 criteria? No. Patient's initial sepsis screen is negative. Does the patient have a suspected source of infection? No. Patient's initial sepsis screen is negative. Care prior to arrival: None. 00:23 Method Of Arrival: EMS: [facility] lp1 00:23 Acuity: EFRAÍN 3 lp1 Historical: - Allergies: 00:34 clopidogrel bisulfate; lp1 00:34 Codeine; lp1 00:34 enalapril maleate; lp1 00:34 hydrocodone; lp1 00:34 Morphine; lp1 00:34 Ramipril; lp1 00:34 Simvastatin; lp1 00:34 altase; lp1 00:34 Demerol; lp1 00:34 enalaprilat dihydrate; lp1 00:34 Ibuprofen; lp1 00:34 OPIATES; lp1 00:34 propoxyphene napsylate; lp1 00:34 Vioxx; lp1 - Home Meds: 00:42 Aranesp (in polysorbate) 40 mcg/0.4 mL injection syrg once wkly for Anemia in Chronic lp1 Kidney Disease [Active]; aspirin 81 mg Oral TbEC 1 tab once daily [Active]; atorvastatin 40 mg oral tab nightly [Active]; citalopram 20 mg CERP 1 tab once daily for Anxiety with Depression [Active]; clonidine HCl 0.1 mg Oral CERP 1 tab 2 times per day for Hypertension [Active]; Effient 10 mg Oral CERP 1 tab once daily [Active]; Folbee Plus oral oral once daily [Active]; 00:49 gabapentin 300 mg Oral cap 1 cap 3 times per day [Active]; latanoprost 0.005 % lp1 ophthalmic drop 1 drop nightly [Active]; lisinopril 20 mg Oral CERP 1 tab once daily [Active]; metoprolol tartrate 25 mg Oral tab 1 tab 2 times per day [Active]; Ativan 1 mg Oral CERP 1 tab Every 2 hours for Anxiety [Active]; Novolin R Sub-Q every 4 hours for Diabetes [Active]; Ranexa 500 mg oral Tb12 1 tab 2 times per day [Active]; tramadol 50 mg Oral CERP 1 tab every 6 hours [Active]; - PMHx: 00:34 hallucinations; Candidiasis; Myocardial infarction; Anemia; ESRD; dysphagia; Diabetes - lp1 IDDM; Hyperlipidemia; hypomagnesemia; Depression; Anxiety; Glaucoma; Hypertension; TIA; Dementia; Pacemaker; chronic pulmonary edema; Dialysis; - PSHx: 00:34 L BKA; lp1 - Immunization history:: Adult Immunizations up to date. - Social history:: Smoking status: unknown. - Ebola Screening: : No symptoms or risks identified at this time. - Family history:: not pertinent. - Hospitalizations: : The patient was recently seen at [facility]. Screenin:49 Abuse screen: Denies threats or abuse. Denies injuries from another. Nutritional lp1 screening: No deficits noted. Tuberculosis screening: No symptoms or risk factors identified. Fall Risk Total Mcintosh Fall Scale indicates High Risk Score (45 or more points). Fall prevention measures have been instituted. Side Rails Up X 2 Frequent Obs/Assessments Occuring. Assessment: 00:30 General: Appears in no apparent distress. Behavior is calm. Pain: Unable to use pain lp1 scale. Does not appear to understand pain scale. FLACC scale score is 0 out of 10. Neuro: Level of Consciousness is awake, obeys commands, Oriented to person, Patient demonstrates hallucinations; History of hallucinations . Cardiovascular: Patient's skin is warm and dry. Dialysis shunt: in the anterior aspect of left upper chest. Respiratory: Respiratory effort is even, unlabored, Breath sounds are clear bilaterally. GI: Abdomen is non-distended. : No signs and/or symptoms were reported regarding the genitourinary system. EENT: No deficits noted. Derm: Skin is fragile, is thin, Skin is dry, Skin is normal, Wound noted Other: Skin tear to right forearm; Wound to right foot, right great toe, blackened. Musculoskeletal: Amputation of Other: Left BKA. 01:50 Reassessment: Patient appears in no apparent distress at this time. Patient and/or lp1 family updated on plan of care and expected duration. Pain level reassessed. Lab at bedside for recollect. 03:15 Reassessment: Patient appears in no apparent distress at this time. Patient talking to lp1 self, reaching arms up to ceiling. General: Behavior is calm. Vital Signs: 00:25 BP 121 / 58; Pulse 77; Resp 20; Temp 98.3(TE); Pulse Ox 100% on R/A; Weight 52.16 kg; lp1 00:50 BP 115 / 82; Pulse 78; Resp 14; Pulse Ox 100% on R/A; lp1 02:00 BP 92 / 45; Pulse 77; Resp 19; Pulse Ox 98% on R/A; lp1 03:00 BP 100 / 51; Pulse 77; Resp 16; Pulse Ox 98% on R/A; lp1 ED Course: 00:12 Patient arrived in ED. al2 00:14 Pop Howard MD is Attending Physician. rn 00:25 Triage completed. lp1 00:26 Arm band placed on left wrist. lp1 00:37 Straight cath inserted, using sterile technique, 16 Fr. no urine returned. Pt on ed1 dialysis. Wound care: to skin tear located on right arm was cleaned with with NS, dressed with steri-strips, Patient tolerated well. 00:40 XRAY Chest (1 view) In Process Unspecified. EDMS 00:49 Patient has correct armband on for positive identification. Placed in gown. Bed in low lp1 position. Side rails up X2. laboratory monitor on. Pulse ox on. NIBP on. 00:50 Starla Gramajo RN is Primary Nurse. lp1 01:00 Missed attempt(s): 22 gauge in right antecubital area. lp1 01:[address] via stretcher. kw1 01:27 CT Head Brain wo Cont In Process Unspecified. EDMS 01:28 CT completed. Patient tolerated procedure well. Patient moved back from CT. kw1 02:55 Nisha Lee MD is Hospitalizing Provider. rn 03:23 Inserted 18 gauge 8 cm midline to right upper arm basilic vein on first attempt. Line fc with good blood return and flushes well. 03:23 No provider procedures requiring assistance completed. Patient admitted, IV remains in lp1 place. Administered Medications: No medications were administered Outcome: 02:56 Decision to Hospitalize by Provider. rn 03:24 Condition: stable lp1 04:27 Admitted to Med/surg accompanied by tech, via stretcher, room 201, with chart. ed1 04:27 Condition: stable 04:27 Discharge instructions given to patient, Instructed on the need for admit. 04:28 Patient left the ED. ed1 Signatures: Dispatcher [employer] EDMS Pricilla Joe RN RN Pop Howard MD MD rn Riggs, Erika, EMAIL MARKETING PROCESSOR EMAIL MARKETING PROCESSOR ed1 Starla Gramajo RN RN lp1 Vanda Morales kw1 Ro Schroeder2 Corrections: (The following items were deleted from the chart) 03:22 00:25 BP 121 / 58; Pulse 77bpm; Resp 20bpm; Pulse Ox 100% RA; 52.16 kg; lp1 lp1 04:12 00:23 Transition of care: patient was not received from another setting of care. lp1 lp1 04:16 00:30 Derm: Skin is fragile, is thin, Skin is dry, Skin is normal, Wound noted Other: lp1 Skin tear to right forearm lp1
--- NOTE | 2018-04-08 03:38 | P.HP ---
Certification for Inpatient Patient admitted to: Inpatient With expected LOS: >2 Midnights Practitioner: I am a practitioner with admitting privileges, knowledge of patient current condition, hospital course, and medical plan of care. Services: Services provided to patient in accordance with Admission requirements found in Title 42 Section 412.3 of the Code of Federal Regulations Patient History Date of Service: 04/08/18 Reason for admission: acute encephalopathy History of Present Illness: Ms Carroll is an 82 years old woman with multiple medical problems resident of a local detention who was recently admitted to the hospital due to chest pain. Her family states that since yesterday morning, the patient has been more confused than usual, having hallucinations. No history of fever or chills. No cough, chest pain or SOB either. She also fell from her wheelchair today. Lab work remarkable for Leukocytosis 19.8K, elevated procalcitonin. CXR shows bilateral infiltrate similar to previous image, however, awaiting radiology report, CT head no acute abnormalities. afebrile, blood pressure on the lower side 100/60. 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 Allergies ramipril [From Altace] Allergy (Unknown, Verified 06/27/17 03:26) Hives/Rash acetaminophen [From Vicodin] Allergy (Verified 02/20/18 20:23) unknown clopidogrel bisulfate [From Plavix] Allergy (Verified 06/27/17 03:26) Hives enalapril maleate [From Vasotec] Allergy (Verified 06/27/17 03:26) Hives hydrocodone [From Vicodin] Allergy (Verified 02/20/18 20:23) unknown morphine Allergy (Verified 06/27/17 03:26) Itching/Hives/Rash propoxyphene napsylate [From Darvocet-N 100] Allergy (Verified 06/27/17 03:26) Hives/Rash simvastatin [From Zocor] Allergy (Verified 06/27/17 03:26) Hives/Rash codeine [Codeine] Adverse Reaction (Mild, Verified 06/27/17 03:26) vomiting rash lorazepam Adverse Reaction (Verified 02/21/18 14:31) Nausea/Vomiting Home medications list reviewed: Yes Home Medications: Acetaminophen 2 tab PO Q6H PRN 04/04/18 Aspirin 1 tab PO DAILY 04/04/18 Atorvastatin Calcium [Lipitor] 40 mg PO BEDTIME 04/04/18 Benzonatate [Tessalon Perle*] 100 mg PO Q6H PRN 04/04/18 Calcium Acetate [Phoslo] 667 mg PO BID 04/04/18 Citalopram Hydrobromide [Citalopram HBr] 20 mg PO BID 04/04/18 Darbepoetin Lisandro in Polysorbat [Aranesp] 40 mcg SQ SEECOM 04/04/18 Diphenhydramine HCl [Benadryl Allergy] 25 mg PO Q12H PRN 04/04/18 Folic Acid/Vit B Complex and C [Folbee Plus Tablet] 5 mg PO DAILY 04/04/18 Gabapentin 300 mg PO TID 04/04/18 Insulin -Regular Human [Novolin -R*] See Protocol SQ ACHS 04/04/18 Latanoprost/Pf [Latanoprost 0.005% Eye Drop] 1 drop OP BEDTIME 04/04/18 Lisinopril [Prinivil*] 20 mg PO DAILY 04/04/18 Loperamide [Imodium*] 2 mg PO Q6HP PRN 04/04/18 Mag Hydroxide 8% [Milk Of Magnesia*] 30 ml PO Q24H PRN 04/04/18 Metoprolol Tartrate 25 mg PO BID 04/04/18 Nystatin Cream [Mycostatin 100MU/Gm Cream*] 1 appl TOP BID 04/04/18 Ondansetron HCl [Zofran] 4 mg PO Q8H PRN 04/04/18 Prasugrel Hydrochloride [Effient*] 10 mg PO DAILY 04/04/18 Tramadol HCl [Ultram] 50 mg PO Q6H PRN 04/04/18 cloNIDine HCl [Catapres*] 0.1 mg PO Q12H PRN 04/04/18 Nitroglycerin 0.4 mg SL SEECOM PRN #30 tab.subl 04/05/18 Ranolazine [Ranexa] 500 mg PO BID #60 tab.er.12h 04/05/18 - Past Medical/Surgical History Diabetic: Yes -: Depression -: GERD -: HTN -: End-stage renal disease, on hemodialysis -: History pacemaker -: Diabetes mellitus type 2 -: Hyperlipidemia -: CAD with prior stent -: PVD -: Gangrene to the right great toe -: Prior left BKA -: STENTS IN HEART -: STENT IN KIDNEY -: CARPAL TUNNEL R HAND -: BLADDER SUSPENSION -: Hysterectomy -: Left BKA Psychosocial/ Personal History: Patient currently in rehab - Family History Father Notes: bleeding ulcers Mother -: Heart disease, Hypertension, Stroke Brother -: Heart disease, Diabetes, Stroke, Cancer Notes: esphogeal cancer Sister -: Heart disease, Hypertension, Diabetes - Social History Alcohol use: Yes CD- Drugs: No Caffeine use: Yes Place of Residence[place] Review of Systems is unable to be obtained (patient not answerig questions) Physical Examination - Physical Exam General: In no apparent distress, Delirious HEENT: Atraumatic, PERRLA, Mucous membr. moist/pink, Sclerae nonicteric Neck: Supple, 2+ carotid pulse no bruit, No LAD, Without JVD or thyroid abnormality Respiratory: Clear to auscultation bilaterally, Normal air movement Cardiovascular: Normal S1 S2, No gallops Gastrointestinal: Normal bowel sounds, No tenderness Musculoskeletal: No tenderness Integumentary: Skin lesion (chronic gangrene right great toe) Neurological: Normal strength at 5/5 x4 extr, Normal tone, Normal affect Lymphatics: No axilla or inguinal lymphadenopathy - Studies Laboratory Data (last 24 hrs) 04/08/18 02:00: PT 14.2 H, INR 1.20, APTT 32.2 04/08/18 02:00: Sodium 130 L, Potassium 4.5, BUN 52 H, Creatinine 4.61 H, Glucose 169 H 04/08/18 02:00: WBC 19.8 H D, Hgb 10.8 L, Hct 34.3 L, Plt Count 390 Microbiology Data (last 24 hrs): 04/08/18 01:48 Nasopharnyx Influenza Type A Antigen Screen - Final 04/08/18 01:48 Nasopharnyx Influenza Type B Antigen Screen - Final Assessment and Plan - Problems (Diagnosis) (1) Acute encephalopathy Current Visit: Yes Status: Acute (2) Gangrene Current Visit: Yes Status: Acute (3) Diabetes mellitus Onset Date: 06/28/17 Current Visit: No Status: Chronic Qualifiers: Diabetes mellitus type: type 2 Diabetes mellitus intermediate card tender insulin use: with correction use Diabetes mellitus complication status: with neurologic complications Diabetes mellitus complication detail: with unspecified neuropathy Qualified Code(s): E11.40 - Type 2 diabetes mellitus with diabetic neuropathy, unspecified; Z79.4 - lobsterman (current) use of insulin (4) ESRD on hemodialysis Onset Date: 06/28/17 Current Visit: No Status: Chronic (5) Hypertension Onset Date: 06/28/17 Current Visit: No Status: Chronic Qualifiers: Hypertension type: essential hypertension Qualified Code(s): I10 - Essential (primary) hypertension (6) Status post below knee amputation of left lower extremity Current Visit: No Status: Chronic - Plan The patient is admitted due to acute encephalopathy, she has elevated procalcitonin, leukocytosis, no clear source of infection. She has her chronic gangrene, consider osteomyelitis. Will order ESR and CRP, start empiric broad spectrum antibiotics. Consult nephrology team for HD orders. - Advance Directives Does patient have a Living Will: Yes Does patient have a Durable POA for Healthcare: Yes - Code Status/Comfort Care Code Status Assessed: Yes Code Status: Do Not Resuscitate
[2018-04-08 04:40] VITALS: O2SAT 98
[2018-04-08] MEDS ORDERED: NA CHLORIDE 0.9% 1,000 ML IV SCH (04:47)
[2018-04-08] MEDS ORDERED: ONDANSETRON 4 MG/2 ML VIAL IV PRN (04:47)
[2018-04-08] MEDS ORDERED: VANCOMYCIN 1 GM in NA CHLORIDE 0.9% 500 ML IVPB ONE (04:47)
[2018-04-08 05:16] LABS: Absolute Lymphocytes (CBC) 1.4 K/uL (0.7-4.9); Absolute Monocytes 1.4 K/uL (0.1-1.3); Absolute Neutrophil 16.2 K/uL (1.8-8.0); Basophils % 0.4 % (0-1.3); Eosinophils % 1.1 % (0-4.4); Hematocrit 32.7 % (36.0-45.0); Lymphocytes % 7.4 % (15.3-44.8); MPV 8.8 fL (7.6-11.3); Monocytes % 7.3 % (3.3-12.3); RBC Red Blood Cell Count 3.64 M/uL (3.86-4.86)
[2018-04-08 05:30] LABS: Albumin 2.6 g/dL (3.4-5.0); Bilirubin Total 0.4 mg/dL (0.2-1.0); Potassium 4.6 mmol/L (3.5-5.1); Protein, Total 7.2 g/dL (6.4-8.2)
[2018-04-08] MEDS ORDERED: VANCOMYCIN 1 GM/250 ML BAG ONE (05:35)
[2018-04-08 06:24] VITALS: BMI 21.2
--- NOTE | 2018-04-08 07:57 | EKG ---
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
--- NOTE | 2018-04-08 08:28 | RAD REPORT ---
EXAM DESCRIPTION: CT - Head Brain Wo Cont - 04/08/2018 7:01 am CLINICAL HISTORY: CONFUSED Drowsiness, headache COMPARISON: Head Brain Wo Cont dated 03/23/2018; Head Brain Wo Cont dated 02/20/2018 TECHNIQUE: All CT scans are performed using dose optimization technique as appropriate and may inclu de automated exposure control or mA/KV adjustment according to patient size. FINDINGS: No intracranial hemorrhage, hydrocephalus or extra-axial fluid collection.Moderate general ized brain atrophy is present with moderate periventricular and deep white matter chronic microvascul ar ischemic changes.No areas of brain edema or evidence of midline shift. The paranasal sinuses and mastoids are clear. The calvarium is intact. Vertebral arteries are atheros clerotic. IMPRESSION: No acute intracranial abnormality.
--- NOTE | 2018-04-08 08:49 | RAD REPORT ---
EXAM DESCRIPTION: RAD - Chest Single View - 04/08/2018 12:40 am CLINICAL HISTORY: AMS Chest pain. COMPARISON: Chest Single View dated 04/04/2018; Chest Single View dated 03/23/2018; Chest Single View dated 02/25/2018; Chest Single View dated 02/21/2018 FINDINGS: Portable technique limits examination quality. Mild interstitial pulmonary edema is noted. The heart is moderately enlarged in size with a dual lead pacer device present. Left-sided venous catheter tip in the SVC.Aortic atherosclerosis noted.
[2018-04-08] MEDS ORDERED: HEPARIN 5000 UNIT/ML 1 ML VIAL SQ SCH (09:00)
[2018-04-08] MEDS ORDERED: PIPER/TAZO/NS 2.25gm 2.25 GM/50 ML BAG IVPB SCH (09:00)
[2018-04-08 12:28] VITALS: BP 118/56; TEMP 97.9
--- NOTE | 2018-04-09 03:05 | CON ---
Date of Consultation: 04/08/2018 Chief Complaint: End-stage renal disease, on dialysis. History Of Present Illness: The patient has multiple medical problems including history of severe pe ripheral vascular disease, hypertension, end-stage renal disease. She has been dialyzed on Sunday, , and Sunday. She came to the hospital because of altered mental status. She developed kim llucinations. She denies history of fever, chills, shortness of breath. Chest x-ray showed bilatera l infiltrates similar to previous findings. CT scan of the head did not show acute abnormalities. T he patient did not have a fever or chill. Blood pressure was 100/60. The patient has history of ori grene of the right great toe. Chest x-ray showed some interstitial pulmonary edema and the patient w as scheduled to have dialysis today. I requested to obtain the consult and have social insurance administrator to dis cuss with the family as far as the plan for dialysis. Apparently, the patient requested hospice. Ac cording to nursing staff from dialysis unit, the patient is permanently scheduled with Sunday, , and Sunday dialysis. She will have dialysis today although because of interstitial pulmonary edema. Review of Systems: The patient is arousable and she denies complaints. She follows few commands. She remains lethargic . Review of systems is unobtainable. Past Medical History: Depression; GERD; hypertension; end-stage renal disease, on dialysis; diabetes mellitus; hyperlipidemia; peripheral vascular disease; gangrene of the right great toe, status post amputation; left BKA; hysterectomy; bladder suspension; carpal tunnel syndrome; and stent in the kidn ey for kidney stone; and stent in the heart. Family History: No history of end-stage renal disease. The patient has history related to diabetes. Family history; hypertension, stroke, heart disease, diabetes, and cancer. Physical Examination: General: The patient is lethargic. Eyes: Anicteric sclerae. EOMI. Ears, Nose, Mouth, and Throat: Oral mucosa moist. No pallor. No drainage. Neck: Supple. No JVD. No bruits. Lungs: Clear to auscultation bilaterally. No rhonchi, no wheezing. Heart: S1, S2. Abdomen: Soft, benign, nontender. Extremities: Slight edema in both ankles. No clubbing. No cyanosis. Dressing in place. Neurologic: The patient is lethargic, somewhat arousable. Laboratory Work: Hemoglobin 10.4, WBC 19.3, platelet count 389,000. Chemistries showed sodium 130, potassium 4.6, chloride 99, CO2 22, BUN 51, creatinine 4.9, procalcitonin 2.14. C-reactive protein i s 134/2. Impression And Plan: 1.End-stage renal disease. The patient has interstitial pulmonary edema. Dialysis will be resumed as soon as the patient can provide consent for dialysis. 2.Sepsis and elevated leukocytosis and elevated procalcitonin level. Adjust antibiotics. Pending b lood culture. 3.Hyponatremia dilutional and monitor electrolytes and continue p.o. fluid restriction. 4.Diabetes mellitus with renal manifestation. Continue insulin. RINA/MICHAEL Voice ID: [id number] Report ID: [id number]
[2018-04-11 13:37] LABS: HBsAG Nonreactive (Nonreactive)
== END 2018-04-08 15:01 | disposition hospice, inpatient (51) ==
LOC: ER 00:11 → ERHOLD 03:16 → INTOOBSV 03:16 → 2ND 04:17
PROVIDERS: ADMIT Internal Medicine; ATTEND Internal Medicine
DX: G93.40 Encephalopathy, unspecified (principal); I12.0 Hypertensive chronic kidney disease with stage 5 chronic kidney disease or end stage renal disease; E11.22 Type 2 diabetes mellitus with diabetic chronic kidney disease; N18.6 End stage renal disease; I73.9 Peripheral vascular disease, unspecified; Z89.512 Acquired absence of left leg below knee; Z95.0 Presence of cardiac pacemaker; E11.52 Type 2 diabetes mellitus with diabetic peripheral angiopathy with gangrene; I96 Gangrene, not elsewhere classified
CPT/HCPCS: 36415; 51702; 70450; 71045; 80048; 80053; 83605; 84145; 85025 ×2; 85610; 85652; 85730; 86140; 86704; 86706; 86803; 87040 ×2; 87340; 87804 ×2; 93005; 94760; 99285; G0378 ×2; J1644; J3370; J7030

== ENCOUNTER 2018-05-08 16:27 | Inpatient (IN) | payer OTHER ==
--- OUTSIDE RECORDS SUMMARY | 2018-05-08 16:32 | XMS REPORT | Clinical Summary ---
:1935 Author Organization [facility] Address [address] [place] [address] Care Team Providers Name Role Phone Anastacio [...] tablet FA-vit Take by mouth. 0 Active Bcomp&J-zxhwirmh-w inc 3-70-15 mg-mcg-mg Tab citalopram Take 20 [...] mg total) by mouth 9 20 daily. metoprolol Take 1 tablet (25 180 tablet [...] 9 Tab tablet 2 (two) times daily. carvedilol (COREG) Take 3.125 mg by 0 03/29/19 Discontinued 3.125 MG tablet mouth 2 (two) 19 times daily with breakfast and dinner. loperamide Take 1 capsule (2 30 capsule 0 04/08/19 (IMODIUM) 2 mg mg total) by mouth 9 19 capsule 4 (four) times daily as needed for Diarrhea for up to 10 days. ondansetron Take 1 tablet (4 20 tablet 0 04/05/19 (ZOFRAN-ODT) 4 MG mg total) by mouth 9 19 disintegrating every 8 (eight) tablet hours as needed for up to 7 days. traMADol (ULTRAM) Take 1 tablet (50 30 tablet 0 04/08/19 50 mg tablet mg total) by mouth 9 19 every 6 (six) hours as needed for up to 10 days. Max Daily Amount: 200 mg Active Problems Problem Noted Date NSTEMI (non-ST [...] ESRD (end stage renal disease) on dialysis (FORMERLY [facility]) Jerman Perera MD 03/23/2018 Surgery Marley Lambert & PCI MD Lucina 03/23/2018 Travel after 05/07/2017 Social History Tobacco Use Types Packs/Day Years [...] Taken Blood Pressure 167/72 03/29/2018 11:31 AM PROPERTY DEVELOPER Pulse 65 03/29/2018 11:31 AM PROPERTY DEVELOPER Temperature 36.8 C (98.3 F) 03/29/2018 11:31 AM PROPERTY DEVELOPER Respiratory Rate 18 03/29/2018 11:31 AM PROPERTY DEVELOPER Oxygen Saturation 100% 03/29/2018 11:31 AM PROPERTY DEVELOPER Inhaled Oxygen Concentration 21% 03/25/2018 10:36 PM PROPERTY DEVELOPER Weight 59.4 kg (130 lb 15.3 oz) 03/26/2018 9:55 AM PROPERTY DEVELOPER Height 162 cm (5' 3.78") 03/23/2018 5:16 PM PROPERTY DEVELOPER Body Mass Index 22.63 03/26/2018 9:55 AM PROPERTY DEVELOPER Plan of Treatment Not on file Procedures Procedure Name Priority Date/Time Associated Diagnosis Comments REPORT OF PROCEDURE 04/18/2018 10:30 AM - ENDOSCOPY SCAN PROPERTY DEVELOPER CARDIAC CATH REPORT 04/18/2018 10:30 AM - SCAN PROPERTY DEVELOPER RHYTHM STRIP - SCAN 04/18/2018 10:30 AM PROPERTY DEVELOPER VASCULAR DIAGRAM 04/18/2018 10:30 AM -SCAN PROPERTY DEVELOPER POCT-GLUCOSE METER Routine 03/29/2018 12:48 PM Results for this PROPERTY DEVELOPER procedure are in the results section. POCT-GLUCOSE METER Routine 03/29/2018 7:48 AM Results for this PROPERTY DEVELOPER procedure are in the results section. ECG 12-LEAD Routine 03/29/2018 7:20 AM PROPERTY DEVELOPER Procedure Note - Interface, External Ris In - 03/29/2018 5:44 PM PROPERTY DEVELOPER Ventricular Rate 65 BPM Atrial Rate 65 BPM P-R Interval 222 ms QRS Duration 78 ms Q-T Interval 430 ms QTC Calculation(Bazett) 447 ms [employer] 95 degrees [employer] -24 degrees [employer] 144 degrees Sinus rhythm with 1st degree A-V block Inferior infarct (cited on or before 24-MAR-2018) Anterior infarct (cited on or before 24-MAR-2018) ST & T wave abnormality, consider lateral ischemia Abnormal ECG When compared with ECG of 29-MAR-2018 07:19, No significant change was found ECG 12-LEAD STAT 03/29/2018 7:20 AM PROPERTY DEVELOPER ECG 12-LEAD Routine 03/29/2018 7:19 AM PROPERTY DEVELOPER Procedure Note - Interface, External Ris In - 03/29/2018 5:44 PM PROPERTY DEVELOPER Ventricular Rate 65 BPM Atrial Rate 65 BPM P-R Interval 220 ms QRS Duration 84 ms Q-T Interval 428 ms QTC Calculation(Bazett) 445 ms [employer] 85 degrees [employer] -20 degrees [employer] 141 degrees Sinus rhythm with 1st degree A-V block Inferior infarct (cited on or before 24-MAR-2018) Anterior infarct (cited on or before 24-MAR-2018) T wave abnormality, consider lateral ischemia ACUTE FL / STEMI Consider right ventricular involvement in acute inferior infarct Abnormal ECG When compared with ECG of 28-MAR-2018 06:45, No significant change was found ECG 12-LEAD Routine 03/29/2018 7:19 AM PROPERTY DEVELOPER MAGNESIUM Routine 03/29/2018 7:10 AM PROPERTY DEVELOPER BASIC METABOLIC PANEL (7) Routine 03/29/2018 7:10 AM PROPERTY DEVELOPER CBC (HEMOGRAM ONLY) Routine 03/29/2018 7:10 AM PROPERTY DEVELOPER POCT-GLUCOSE METER Routine 03/28/2018 10:48 PM PROPERTY DEVELOPER POCT-GLUCOSE METER Routine 03/28/2018 6:52 PM PROPERTY DEVELOPER POCT-GLUCOSE METER Routine 03/28/2018 3:32 PM PROPERTY DEVELOPER POCT-GLUCOSE METER Routine 03/28/2018 2:03 PM PROPERTY DEVELOPER C. DIFFICILE GDH TOXIN Routine 03/28/2018 10:26 AM PROPERTY DEVELOPER POCT-GLUCOSE METER Routine 03/28/2018 10:12 AM PROPERTY DEVELOPER ECG 12-LEAD Routine 03/28/2018 6:45 AM PROPERTY DEVELOPER Procedure Note - Interface, External Ris In - 03/28/2018 10:27 AM PROPERTY DEVELOPER Ventricular Rate 66 BPM Atrial Rate 66 BPM P-R Interval 224 ms QRS Duration 84 ms Q-T Interval 406 ms QTC Calculation(Bazett) 425 ms [employer] -4 degrees [employer] 3 degrees [employer] 140 degrees Sinus rhythm with 1st degree A-V block Inferior infarct (cited on or before 24-MAR-2018) Cannot rule out Anterior infarct , age undetermined ST & T wave abnormality, consider lateral ischemia Abnormal ECG When compared with ECG of 27-MAR-2018 06:56, No significant change was found ECG 12-LEAD Routine 03/28/2018 6:45 AM PROPERTY DEVELOPER MAGNESIUM Routine 03/28/2018 4:46 AM PROPERTY DEVELOPER BASIC METABOLIC PANEL (7) Routine 03/28/2018 4:46 AM PROPERTY DEVELOPER CBC (HEMOGRAM ONLY) Routine 03/28/2018 4:46 AM PROPERTY DEVELOPER POCT-GLUCOSE METER Routine 03/27/2018 9:10 PM PROPERTY DEVELOPER POCT-GLUCOSE METER Routine 03/27/2018 5:37 PM PROPERTY DEVELOPER POCT-GLUCOSE METER Routine 03/27/2018 1:19 PM PROPERTY DEVELOPER POCT-GLUCOSE METER Routine 03/27/2018 9:55 AM PROPERTY DEVELOPER IR AV SHUNT/FISTULAGRAM Routine 03/27/2018 9:30 AM PROPERTY DEVELOPER ECG 12-LEAD Routine 03/27/2018 6:56 AM PROPERTY DEVELOPER Procedure Note - Interface, External Ris In - 03/27/2018 7:04 AM PROPERTY DEVELOPER Ventricular Rate 64 BPM Atrial Rate 64 BPM P-R Interval 230 ms QRS Duration 82 ms Q-T Interval 430 ms QTC Calculation(Bazett) 443 ms [employer] 95 degrees [employer] -18 degrees [employer] 137 degrees Sinus rhythm with 1st degree A-V block Inferior infarct (cited on or before 24-MAR-2018) ST & T wave abnormality, consider lateral ischemia Abnormal ECG When compared with ECG of 25-MAR-2018 10:48, No significant change was found ECG 12-LEAD Routine 03/27/2018 6:56 AM PROPERTY DEVELOPER MAGNESIUM Routine 03/27/2018 5:50 AM PROPERTY DEVELOPER BASIC METABOLIC PANEL (7) Routine 03/27/2018 5:50 AM PROPERTY DEVELOPER CBC (HEMOGRAM ONLY) Routine 03/27/2018 5:50 AM PROPERTY DEVELOPER POCT-GLUCOSE METER Routine 03/26/2018 10:12 PM PROPERTY DEVELOPER POCT-GLUCOSE METER Routine 03/26/2018 5:43 PM PROPERTY DEVELOPER PHOSPHORUS Routine 03/26/2018 2:55 PM PROPERTY DEVELOPER POCT-GLUCOSE METER Routine 03/26/2018 2:53 PM PROPERTY DEVELOPER HEMODIALYSIS INPATIENT Routine 03/26/2018 2:00 PM PROPERTY DEVELOPER HEPATITIS B SURFACE ANTIGEN Routine 03/26/2018 9:58 AM PROPERTY DEVELOPER POCT-GLUCOSE METER Routine 03/26/2018 9:03 AM PROPERTY DEVELOPER MAGNESIUM Routine 03/26/2018 4:36 AM PROPERTY DEVELOPER BASIC METABOLIC PANEL (7) Routine 03/26/2018 4:36 AM PROPERTY DEVELOPER CBC (HEMOGRAM ONLY) Routine 03/26/2018 4:36 AM PROPERTY DEVELOPER PROTHROMBIN TIME/INR Routine 03/26/2018 4:36 AM PROPERTY DEVELOPER APTT Routine 03/26/2018 1:03 AM PROPERTY DEVELOPER POCT-GLUCOSE METER Routine 03/25/2018 8:48 PM PROPERTY DEVELOPER APTT Routine 03/25/2018 6:11 PM PROPERTY DEVELOPER POCT-GLUCOSE METER Routine 03/25/2018 5:18 PM PROPERTY DEVELOPER POCT-GLUCOSE METER Routine 03/25/2018 12:04 PM PROPERTY DEVELOPER APTT Routine 03/25/2018 11:42 AM PROPERTY DEVELOPER ECG 12-LEAD Routine 03/25/2018 10:48 AM PROPERTY DEVELOPER Procedure Note - Interface, External Ris In - 03/25/2018 11:00 AM PROPERTY DEVELOPER Ventricular Rate 62 BPM Atrial Rate 62 BPM P-R Interval 224 ms QRS Duration 82 ms Q-T Interval 428 ms QTC Calculation(Bazett) 434 ms [employer] 93 degrees [employer] -5 degrees [employer] 134 degrees Sinus rhythm with 1st degree A-V block Inferior infarct , possibly acute T wave abnormality, consider lateral ischemia ACUTE FL / STEMI Consider right ventricular involvement in acute inferior infarct Abnormal ECG ECG 12-LEAD STAT 03/25/2018 10:48 AM PROPERTY DEVELOPER ECHOCARDIOGRAM REPORT - SCAN 03/25/2018 9:51 AM PROPERTY DEVELOPER POCT-GLUCOSE METER Routine 03/25/2018 8:02 AM PROPERTY DEVELOPER APTT Routine 03/25/2018 4:20 AM PROPERTY DEVELOPER IRON, TIBC, % SAT. (WITHOUT Routine 03/25/2018 4:20 AM PROPERTY DEVELOPER Results for this FERRITIN) procedure are in the results section. MAGNESIUM Routine 03/25/2018 4:20 AM PROPERTY DEVELOPER BASIC METABOLIC PANEL (7) Routine 03/25/2018 4:20 AM PROPERTY DEVELOPER CBC (HEMOGRAM ONLY) Routine 03/25/2018 4:20 AM PROPERTY DEVELOPER PROTHROMBIN TIME/INR Routine 03/25/2018 4:20 AM PROPERTY DEVELOPER APTT Routine 03/24/2018 10:35 PM PROPERTY DEVELOPER POCT-GLUCOSE METER Routine 03/24/2018 9:32 PM PROPERTY DEVELOPER POCT-GLUCOSE METER Routine 03/24/2018 5:41 PM PROPERTY DEVELOPER 2D ECHO W/ DOPPLER Routine 03/24/2018 5:33 PM PROPERTY DEVELOPER Results for this (CW/PW/COLOR) procedure are in the results section. APTT Routine 03/24/2018 12:47 PM PROPERTY DEVELOPER POCT-GLUCOSE METER Routine 03/24/2018 12:44 PM PROPERTY DEVELOPER ECG 12-LEAD Routine 03/24/2018 8:54 AM PROPERTY DEVELOPER Procedure Note - Interface, External Ris In - 03/24/2018 8:57 AM PROPERTY DEVELOPER Ventricular Rate 69 BPM Atrial Rate 69 BPM P-R Interval 238 ms QRS Duration 76 ms Q-T Interval 402 ms QTC Calculation(Bazett) 430 ms [employer] -11 degrees [employer] -3 degrees [employer] 134 degrees Sinus rhythm with 1st degree A-V block Inferior infarct , age undetermined Possible Anterolateral infarct , age undetermined Abnormal ECG ECG 12-LEAD Routine 03/24/2018 8:54 AM Results for this PROPERTY DEVELOPER procedure are in the results section. POCT-GLUCOSE METER Routine 03/24/2018 7:31 AM Results for this PROPERTY DEVELOPER procedure are in the results section. CBC W/PLT COUNT & AUTO Routine 03/24/2018 5:11 AM Results for this DIFFERENTIAL PROPERTY DEVELOPER procedure are in the results section. APTT Routine 03/24/2018 5:11 AM Results for this PROPERTY DEVELOPER procedure are in the results section. PROTHROMBIN TIME/INR Routine 03/24/2018 5:11 AM Results for this PROPERTY DEVELOPER procedure are in the results section. CBC W/PLT COUNT & AUTO Routine 03/24/2018 5:11 AM Results for this DIFFERENTIAL PROPERTY DEVELOPER procedure are in the results section. PHOSPHORUS Routine 03/24/2018 5:11 AM Results for this PROPERTY DEVELOPER procedure are in the results section. MAGNESIUM Routine 03/24/2018 5:11 AM Results for this PROPERTY DEVELOPER procedure are in the results section. COMPREHENSIVE Routine 03/24/2018 5:11 AM Results for this METABOLIC PANEL PROPERTY DEVELOPER procedure are in the results section. CBC (HEMOGRAM ONLY) Routine 03/24/2018 5:11 AM Results for this PROPERTY DEVELOPER procedure are in the results section. POCT-GLUCOSE METER Routine 03/23/2018 10:37 PM Results for this PROPERTY DEVELOPER procedure are in the results section. APTT Routine 03/23/2018 8:43 PM Results for this PROPERTY DEVELOPER procedure are in the results section. PLATELET COUNT Routine 03/23/2018 8:43 PM Results for this PROPERTY DEVELOPER procedure are in the results section. LIPID PANEL Routine 03/23/2018 8:43 PM Results for this PROPERTY DEVELOPER procedure are in the results section. B-TYPE NATRIURETIC Routine 03/23/2018 8:43 PM Results for this FACTOR (BNP) PROPERTY DEVELOPER procedure are in the results section. TROPONIN I Routine 03/23/2018 8:43 PM Results for this PROPERTY DEVELOPER procedure are in the results section. L CATH & PCI 03/23/2018 5:[address] elevation PROPERTY DEVELOPER myocardial infarction (STEMI), unspecified artery (HCC) after 05/07/2017 Results EKG-SCANNED (04/18/2018 10:30 AM PROPERTY DEVELOPER) Narrative Performed At CARDIAC CATH REPORT - SCAN (04/18/2018 10:30 AM PROPERTY DEVELOPER) Narrative Performed At RHYTHM STRIP - SCAN (04/18/2018 10:30 AM PROPERTY DEVELOPER) Narrative Performed At VASCULAR DIAGRAM -SCAN (04/18/2018 10:30 AM PROPERTY DEVELOPER) Narrative Performed At POC-Glucose meter (03/29/2018 12:48 PM PROPERTY DEVELOPER)Only the most recent of24 resultswithin the time period is included. POC-Glucose Meter 148 (H)Comment: TESTED AT 70 - 110 mg/dL [facility] [address] [facility] [address] Specimen Blood Performing Organization Address City/State/Zipcode Phone Number [address] [address] [phone] CENTER ECG 12 lead (03/29/2018 7:20 AM PROPERTY DEVELOPER)Only the most recent of6 resultswithin the time period is included. Narrative Performed At Ventricular Rate 65 BPM GE MUSE Atrial Rate 65 BPM P-R Interval 222 ms QRS Duration 78 ms Q-T Interval 430 ms QTC Calculation(Bazett) 447 ms [employer] 95 degrees [employer] -24 degrees [employer] 144 degrees Sinus rhythm with 1st degree [...] External Ris In - 03/30/2018 11:47 AM PROPERTY DEVELOPER Ventricular Rate 65 BPM Atrial Rate 65 BPM P-R Interval 222 ms QRS Duration 78 ms Q-T Interval 430 ms QTC Calculation(Bazett) 447 ms [employer] 95 degrees [employer] -24 degrees [employer] 144 degrees Sinus rhythm with 1st degree A-V block Inferior infarct (cited on or before 24-MAR-2018) Anterior infarct (cited on or before 24-MAR-2018) ST & T wave abnormality, consider lateral ischemia Abnormal ECG When compared with ECG of 29-MAR-2018 07:19, No significant change was found Confirmed by MD SON MAJID ([id number]) on 03/30/2018 11:47:27 AM Performing Organization Address City/State/Zipcode Phone Number GE MUSE CBC (Hemogram only) (03/29/2018 7:10 AM PROPERTY DEVELOPER)Only the most recent of6 resultswithin the time period is included. WBC 11.9 (H) 3.5 - 10.5 K/L [facility] RBC 3.64 (L) 3.93 - 5.22 M/L [facility] Hemoglobin 10.3 (L) 11.2 - 15.7 GM/DL [facility] Hematocrit 32.7 (L) 34.1 - 44.9 % [facility] MCV 89.8 79.4 - 94.8 fL [facility] MCH 28.3 25.6 - 32.2 pg [facility] MCHC 31.5 (L) 32.2 - 35.5 GM/DL [facility] RDW 17.7 (H) 11.7 - 14.4 % [facility] Platelets 359 150 - 450 K/CU MM [facility] MPV 10.1 9.4 - 12.3 fL [facility] nRBC 0 0 - 0 /100 WBC [facility] Specimen Blood Performing Organization Address City/[facility]/Zipcode Phone Number [address] [address] CENTER Magnesium (03/29/2018 7:10 AM PROPERTY DEVELOPER)Only the most recent of6 resultswithin the time period is included. Magnesium 1.8 1.6 - 2.6 mg/dL [facility] Specimen Blood Narrative Performed At Please draw today if not done already. [facility] Performing Organization Address City/[facility] Cent[facility] Phone Number [address] [address] [place] Basic metabolic panel (03/29/2018 7:10 AM PROPERTY DEVELOPER)Only the most recent of5 resultswithin the time period is included. Sodium 135 (L) 136 - 145 meq/L [facility] Potassium 4.0 3.5 - 5.1 meq/L [facility] Chloride 103 98 - 107 meq/L [facility] CO2 24 22 - 29 meq/L [facility] BUN 23 (H) 7 - 21 mg/dL [facility] Creatinine 2.91 (H) 0.57 - 1.25 mg/dL [facility] Glucose 108 (H) 70 - 105 mg/dL [facility] Calcium 9.1 8.4 - 10.2 mg/dL [facility] EGFR 16Comment: ESTIMATED GFR IS mL/min/1.73 sq m [facility] NOT ACCURATE CREATININE [facility] CENTER CLEARANCE IN PREDICTING GLOMERULAR FILTRATION RATE. ESTIMATED GFR IS NOT APPLICABLE FOR DIALYSIS PATIENTS. Specimen Blood Narrative Performed At Please draw today if not done already. [facility] Performing Organization Address City/[facility]/Zipcode Phone Number [address] [address] [place] Clostridium difficile [facility]DH Toxin (03/28/2018 10:26 AM PROPERTY DEVELOPER) C. Difficle Toxin Negative Negative [facility] C. Difficile [facility] Antigen NegativeComment: No Negative [facility] indication of Clostridium [facility] difficile infection and no colonization. Discontinue enteric isolation and therapy. Specimen Stool - Rectum Narrative Performed At Testing performed by [employer] Rapid Cassette [facility] Assay.For [facility], published sensitivity of the assay is 98.7% compared to cytotoxicity testing.For Toxin AB, published sensitivity is 87.8% and specificity 99.4% compared to cytotoxicity testing. Verification of kit performance was done by the [facility] Microbiology Lab prior to clinical use. Performing Organization Address City/State/Zipcode Phone Number [facility] [address] [place] [address] [phone] [place] IR AV Shunt/Fistulagram (03/27/2018 9:30 AM PROPERTY DEVELOPER) Narrative Performed At FINAL REPORT GE RIS Procedure: Attempted declotting of left upper arm [...] MD Report Verified Date/Time:03/27/2018 16:13:07 Reading Location: [place] [address] Angio Body Reading Room Procedure Note Interface, External Ris In - 03/27/2018 4:15 PM PROPERTY DEVELOPER FINAL REPORT Procedure: Attempted declotting of left [...] Report Verified Date/Time: 03/27/2018 16:13:07 Reading Location: [place] [address] Angio Body Reading Room Performing Organization Address City/[facility]/Zipcode Phone Number [facility] Phosphorus (03/26/2018 2:55 PM PROPERTY DEVELOPER)Only the most recent of2 resultswithin the time period is included. Phosphorus 2.0 (L) 2.3 - 4.7 mg/dL [facility] Specimen Blood - Arm, Right Performing Organization Address City/[facility]/Zipcode Phone Number [address] [address] CENTER HEMODIALYSIS INPATIENT (03/26/2018 2:00 PM PROPERTY DEVELOPER) Narrative Performed At Zina Strange RN 03/26/20187:25 [...] Hepatitis B surface antigen (03/26/2018 9:58 AM PROPERTY DEVELOPER) hepatitis B Surface Ag NON-REACTIVE Nonreactive [facility] Specimen Blood Performing Organization Address [facility] Centercoct Phone Number [address] [address] CENTER Prothrombin time/INR (03/26/2018 4:36 AM PROPERTY DEVELOPER)Only the most recent of3 resultswithin the time period is included. Protime 14.8 (H) 11.7 - 14.7 seconds [facility] INR 1.2 <=5.9 [facility] Specimen Blood Narrative Performed At RECOMMENDED COUMADIN/WARFARIN INR THERAPY [facility] RANGES STANDARD DOSE: 2.0 - 3.0 Includes: PROPHYLAXIS for venous thrombosis, systemic embolization; TREATMENT for venous thrombosis and/or pulmonary embolus. HIGH RISK: Target INR is 2.5-3.5 for patients with mechanical heart valves. Performing Organization Address [facility] Centercode Phone Number [address] [address] CENTER aPTT (03/26/2018 1:03 AM PROPERTY DEVELOPER)Only the most recent of8 resultswithin the time period is included. PTT 60.2 (H) 22.5 - 36.0 seconds [facility] Specimen Blood Performing Organization Address [facility] Centercode Phone Number [address] [address] [place] ECHOCARDIOGRAM REPORT - SCAN (03/25/2018 9:51 AM PROPERTY DEVELOPER) Narrative Performed At Iron, TIBC, % sat. (without ferritin) (03/25/2018 4:20 AM PROPERTY DEVELOPER) Iron 29.0 (L) 40.0 - 160.0 ug/dL [facility] TIBC 123 (L) 250 - 450 ug/dL [facility] Iron % Saturation 24 20 - 55 % [facility] Specimen Blood - Arm, Right Performing Organization Address City/State/Zipcode Phone Number [facility] [address] [place] [address] CENTER Transthoracic 2D echo w/ doppler (cw/pw/color) (03/24/2018 5:33 PM PROPERTY DEVELOPER) Ejection Fraction [facility] Narrative Performed At Transthoracic Echocardiography Report (TTE) [facility] Demographics Patient Name WIX, NORMADate of Study 03/24/2018 OPAL [id number] GenderFemale Visit Number [id number] Unknown [id number] Room Number 6214 Number Date of Birth1935Referring Physician 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 Pcnp-da-fmvrokxm aortic stenosis. Estimated peak systolic PA pressure [...] right- and le ft- coronary cups(s). Mi ha-pd-dbktsivu aortic stenosis. 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 Qwyz-wp-ziozopiu aortic stenosis. Estimated peak systolic PA pressure [...] involves the right- and left- coronary cups(s). Rjzn-iq-dzjvsibh aortic stenosis. AoV area at rest by [...] City/State/Zipcode Phone Number [facility] CBC with platelet count + automated diff (03/24/2018 5:11 AM PROPERTY DEVELOPER) WBC 10.9 (H) 3.5 - 10.5 K/L [facility] RBC 3.53 (L) 3.93 - 5.22 M/L [facility] Hemoglobin 9.9 (L) 11.2 - 15.7 GM/DL [facility] Hematocrit 31.7 (L) 34.1 - 44.9 % [facility] MCV 89.8 79.4 - 94.8 fL [facility] MCH 28.0 25.6 - 32.2 pg [facility] MCHC 31.2 (L) 32.2 - 35.5 GM/DL [facility] RDW 17.8 (H) 11.7 - 14.4 % [facility] Platelets 365 150 - 450 K/CU MM [facility] MPV 10.4 9.4 - 12.3 fL [facility] nRBC 0 0 - 0 /100 WBC [facility] % Neutros 75 % [facility] % Lymphs 12 % [facility] % Monos 9 % [facility] % Eos 3 % [facility] % Baso 0 % [facility] # Neutros 8.15 (H) 1.56 - 6.13 K/L [facility] # Lymphs 1.32 1.18 - 3.74 K/L [facility] # Monos 0.94 (H) 0.24 - 0.36 K/L [facility] # Eos 0.32 0.04 - 0.36 K/L [facility] # Baso 0.04 0.01 - 0.08 K/L [facility] Immature Granulocytes-Relative 1 0 - 1 % [facility] Specimen Blood Performing Organization Address City/State/Zipcode Phone Number [facility] [address] [address] [place] Comprehensive metabolic panel (03/24/2018 5:11 AM PROPERTY DEVELOPER) Protein, Total 6.4 6.0 - 8.3 gm/dL [facility] Albumin 2.8 (L) 3.5 - 5.0 g/dL [facility] Alkaline Phosphatase 108 40 - 150 U/L [facility] Total Bilirubin 0.4 0.2 - 1.2 mg/dL [facility] Sodium 129 (L) 136 - 145 meq/L [facility] Potassium 3.3 (L) 3.5 - 5.1 meq/L [facility] Chloride 99 98 - 107 meq/L [facility] CO2 21 (L) 22 - 29 meq/L [facility] BUN 47 (H) 7 - 21 mg/dL [facility] Creatinine 3.80 (H) 0.57 - 1.25 mg/dL [facility] Glucose 103 70 - 105 mg/dL [facility] Calcium 9.6 8.4 - 10.2 mg/dL [facility] AST 46 (H) 5 - 34 U/L [facility] ALT 49 6 - 55 U/L [facility] EGFR Comment: INSUFFICIENT mL/min/1.73 sq m [facility] CL[facility]ICAL DATA TO [facility] CALCULATE ESTIMATED GFR. Specimen Blood Performing Organization Address City/State/Zipcode Phone Number [address] [address] [phone] [place] Troponin I (03/23/2018 8:43 PM [employer]ERTY DEVELOPER) Troponin I 1.89 (HH) 0.00 - 0.03 ng/mL [facility] Specimen Blood Narrative Performed At Troponin I (TnI) levels must be interpreted [facility] in the context of [...] and persistent tachyarrhythmia. Fasting Performing Organization Address [facility] Phone Number [address] [address] [phone] [place] Platelet count (03/23/2018 8:43 PM [employer] DEVELOPER) Platelets 364 150 - 450 K/CU MM [facility] Specimen Blood Performing Organization Address [facility] Phone Number [address] [address] [place] B-type Natriuretic Factor (BNP) (03/23/2018 8:43 PM [employer] DEVEL[employer]) BNP 2,021 (H) 0 - 100 pg/mL [facility] Specimen Blood Performing Organization Address [facility] Phone Number [address] [address] [phone] CENTER Lipid panel (03/23/2018 8:43 PM [employer] DEVELOPER) Triglycerides 132 mg/dL [facility] Cholesterol 103 mg/dL [facility] HDL 24 mg/dL [facility] LDL Calculated 53 mg/dL [facility] Specimen Blood Narrative Performed At Triglyceride Reference Range: [facility] Low Risk <150 [id number] High Risk 200-499 Very High Risk>=500 Cholesterol Reference Range: Low Risk <200 [id number] High Risk>240 HDL Cholesterol Reference Range: Low Risk >=60 High Risk <40 LDL Cholesterol Reference Range: Optimal<100 Near [id number] Very High >=190 Fasting Performing Organization Address [facility]/State/Zipcode Phone Number [facility] [address] [place] [address] [phone] CENTER after 05/07/2017 Insurance Payer Benefit Plan / Group Subscriber ID Type Phone Address MEDICARE MEDICARE A B xxxxxxxxxxx Medicare Advance Directives For more information, please contact:[facility] [place], [place] [phone] Code Status Date Activated Date Inactivated Comments Full Code 03/23/2018 8:26 PM This code status was determined by: Patient
--- OUTSIDE RECORDS SUMMARY | 2018-05-08 16:32 | XMS REPORT | Clinical Summary ---
:1935 Author Organization [facility] Address [address] [place] [address] Care Team Providers Name Role Phone Arslan [...] (four) hours as needed for moderate pain. bimatoprost Administer 1 drop 0 Discontinued (LUMIGAN) [...] needed for anxiety (related to anxiety disorder). gabapentin Take 1 capsule 60 capsule 0 (NEURONTIN) 300 mg (300 mg total) by 8 019 capsule mouth 2 (two) times a day for 30 days. atorvastatin Take 1 tablet (40 30 tablet 0 (LIPITOR) 40 MG mg total) by mouth 8 019 tablet daily for 30 days. benzonatate Take 1 capsule 30 capsule 0 (TESSALON) 100 MG (100 mg total) by 8 019 capsule mouth every 6 (six) hours as needed for cough for up to 30 days. darbepoetin Inject 0.4 mL (40 1.6 mL 0 tang-polysorbate mcg total) under 8 019 (ARANESP) 40 the skin once a mcg/0.4 mL week at 4pm for 30 syringeIndications: days. ESRD on Dialysis povidone-iodine Apply topically as 118 mL 0 (BETADINE) 10 % needed for wound 8 019 external solution care for up to 30 days. B complex-vitamin Take 1 tablet by 30 tablet 0 C-folic acid mouth daily for 30 8 019 (FOLBEE PLUS 5 MG) days. 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); 03/11/2018 Stanton Ronquillo Anemia, unspecified type MD Shanika Purvis Thuyen T., MD 02/25/2018 Intake Access N/A after 05/07/2017 Family History Medical History Relation Name Comments [...] Taken Blood Pressure 150/86 03/11/2018 7:50 PM [facility] Pulse 84 03/11/2018 7:50 PM [facility] Temperature 36.1 C (97 F) 03/11/2018 7:50 PM [facility] Respiratory Rate 14 03/11/2018 7:50 PM [facility] Oxygen Saturation 96% 03/11/2018 7:50 PM [facility] Inhaled Oxygen Concentration - - Weight 57.7 kg (127 lb 2 oz) 03/08/2018 7:00 AM [facility] Height 160 cm (5' 3") 03/07/2018 12:36 PM [facility] Body Mass Index 22.52 03/08/2018 7:00 AM [facility] Plan of Treatment Health Maintenance Due Date Last Done Comments SHINGLES VACCINES (1 of 2) 1986 PNEUMOCOCCAL POLYSACCHARIDE VACCINE AGE 65 AND OVER 2001 PNEUMOCOCCAL-13 2001 INFLUENZA VACCINE 10/24/2017 Implants Implanted Type Area Hedis Analyst Device Shelf Model / Identifier Expiration Serial / Date Lot Graft Vasclr Acuseal 40cm 6mm - [id number] - [id number] Vascular N/A: N/A [employer]ORE 05/19/2019 [id number] / Implanted: Qty: 1 on 11/08/2016 by Herman Fraga MD Graft [id number] / [id number] Patch Cvs For Vasclr 0.5mm 1x9cm Acusemn - [id number] - [id number] Vascular N/ A: N/A W L GORE 01/09/2021 [id number] / Implanted: Qty: 1 on 03/07/2018 by Herman Fraga MD Graft [id number] / [id number] Procedures Procedure Name Priority Date/Time Associated Comments Diagnosis POC GLUCOSE Routine 03/11/2018 5:03 Results for this PM [facility] procedure are in the results section. POC GLUCOSE Routine 03/11/2018 1:26 Results for this PM [facility] procedure are in the results section. HC COMPLETE BLD COUNT Routine 03/11/2018 1:19 Results for this W/AUTO DIFF PM [facility] procedure are in the results section. ESTIMATED GFR Routine 03/11/2018 1:14 Results for this PM [facility] procedure are in the results section. PHOSPHORUS LEVEL Routine 03/11/2018 1:14 Results for this PM [facility] procedure are in the results section. BASIC METABOLIC PANEL Routine 03/11/2018 1:14 Results for this PM [facility] procedure are in the results section. POC GLUCOSE Routine 03/11/2018 11:37 Results for this AM [facility] procedure are in the results section. HEMODIALYSIS Routine 03/11/2018 10:07 AM [facility] POC GLUCOSE Routine 03/11/2018 7:44 Results for this AM [facility] procedure are in the results section. POC GLUCOSE Routine 03/10/2018 8:59 Results for this PM [facility] procedure are in the results section. POC GLUCOSE Routine 03/10/2018 5:21 Results for this PM [facility] procedure are in the results section. POC GLUCOSE Routine 03/10/2018 12:26 Results for this PM [facility] procedure are in the results section. POC GLUCOSE Routine 03/10/2018 7:56 Results for this AM [facility] procedure are in the results section. POC GLUCOSE Routine 03/09/2018 10:08 Results for this PM [facility] procedure are in the results section. POC GLUCOSE Routine 03/09/2018 6:35 Results for this PM [facility] procedure are in the results section. POC GLUCOSE Routine 03/09/2018 5:00 Results for this PM [facility] procedure are in the results section. POC GLUCOSE Routine 03/09/2018 11:51 Results for this AM [facility] procedure are in the results section. HEMODIALYSIS Routine 03/09/2018 10:41 AM [facility] ECHOCARDIOGRAM 2D Routine 03/09/2018 9:01 Results for this COMPLETE W MMODE AM [facility] procedure are in SPECTRAL COLOR DOPPLER the results (31785) section. POC GLUCOSE Routine 03/09/2018 7:42 Results for this AM [facility] procedure are in the results section. HC COMPLETE BLD COUNT Routine 03/09/2018 5:00 Results for this W/AUTO DIFF AM [facility] procedure are in the results section. ESTIMATED GFR Routine 03/09/2018 4:00 Results for this AM [facility] procedure are in the results section. PHOSPHORUS LEVEL Routine 03/09/2018 4:00 Results for this AM [facility] procedure are in the results section. BASIC METABOLIC PANEL Routine 03/09/2018 4:00 Results for this AM [facility] procedure are in the results section. POC GLUCOSE Routine 03/08/2018 10:26 Results for this PM [facility] procedure are in the results section. POC GLUCOSE Routine 03/08/2018 9:24 Results for this PM [facility] procedure are in the results section. TRANSFUSE RED BLOOD Routine 03/08/2018 9:05 CELLS PM [facility] TRANSFUSE RED BLOOD Routine 03/08/2018 7:49 CELLS PM [facility] HEMODIALYSIS Routine 03/08/2018 5:53 PM [facility] POC GLUCOSE Routine 03/08/2018 5:04 Results for this PM [facility] procedure are in the results section. POC GLUCOSE Routine 03/08/2018 3:15 Results for this PM [facility] procedure are in the results section. IR TUNNELED DIALYSIS Routine 03/08/2018 2:53 Results for this CATHETER PLACEMENT PM [facility] procedure are in the results section. POC GLUCOSE Routine 03/08/2018 11:17 Results for this AM [facility] procedure are in the results section. PREPARE RBC Timed 03/08/2018 10:58 Results for this AM [facility] procedure are in the results section. TYPE AND SCREEN Timed 03/08/2018 10:58 Results for this AM [facility] procedure are in the results section. POC GLUCOSE Routine 03/08/2018 7:17 Results for this AM [facility] procedure are in the results section. SMEAR REVIEW Routine 03/08/2018 4:37 Results for this AM [facility] procedure are in the results section. HC COMPLETE BLD COUNT Routine 03/08/2018 4:37 Results for this W/AUTO DIFF AM [facility] procedure are in the results section. ESTIMATED GFR Routine 03/08/2018 4:00 Results for this AM [facility] procedure are in the results section. PHOSPHORUS LEVEL Routine 03/08/2018 4:00 Results for this AM [facility] procedure are in the results section. BASIC METABOLIC PANEL Routine 03/08/2018 4:00 Results for this AM [facility] procedure are in the results section. POC GLUCOSE Routine 03/07/2018 9:55 Results for this PM [facility] procedure are in the results section. POC GLUCOSE Routine 03/07/2018 6:15 Results for this PM [facility] procedure are in the results section. POC GLUCOSE Routine 03/07/2018 4:32 Results for this PM [facility] procedure are in the results section. POC GLUCOSE Routine 03/07/2018 2:32 Results for this PM [facility] procedure are in the results section. MS AN ELECTIVE Routine 03/07/2018 1:32 ENDOTRACHEAL AIRWAY PM [facility] Procedure Note - Gael Coffman MD - 03/07/2018 1:32 PM [facility] ANESTHESIA INTUBATION Performed by: Gael Coffman MD [...] 1 THROMBECTOMY, GRAFT, AV 03/07/2018 1:10 PM [facility] AV graft malfunction, initial encounter (HCC) Case Notes C-ARM, R/S PER RIYA 03/06 K[facility] Special Needs C-ARM SODIUM LEVEL, SYRINGE STAT 03/07/2018 12:40 PM Results for this [facility] procedure are in the results section. POTASSIUM, SYRINGE STAT 03/07/2018 12:40 PM Results for this [facility] procedure are in the results section. HEMOGLOBIN, SYRINGE STAT 03/07/2018 12:40 PM Results for this [facility] procedure are in the results section. GLUCOSE LEVEL, SYRINGE STAT 03/07/2018 12:40 PM Results for this [facility] procedure are in the results section. HEMODIALYSIS Routine 03/07/2018 12:22 PM [facility] POC GLUCOSE Routine 03/07/2018 11:13 AM Results for this [facility] procedure are in the results section. POC GLUCOSE Routine 03/07/2018 7:46 AM Results for this [facility] procedure are in the results section. POC GLUCOSE Routine 03/07/2018 5:13 AM Results for this [facility] procedure are in the results section. POC GLUCOSE Routine 03/07/2018 1:35 AM Results for this [facility] procedure are in the results section. POC GLUCOSE Routine 03/06/2018 9:23 PM Results for this [facility] procedure are in the results section. POC GLUCOSE Routine 03/06/2018 4:05 PM Results for this [facility] procedure are in the results section. POC GLUCOSE Routine 03/06/2018 12:51 PM Results for this [facility] procedure are in the results section. HEMODIALYSIS Routine 03/06/2018 12:08 PM [facility] POC GLUCOSE Routine 03/06/2018 7:30 AM Results for this [facility] procedure are in the results section. CLOSTRIDIUM DIFFICILE TOXIN Routine 03/06/2018 6:20 AM Results for this [facility] procedure are in the results section. HC COMPLETE BLD COUNT Routine 03/06/2018 4:20 AM Results for this W/AUTO DIFF [facility] procedure are in the results section. ESTIMATED GFR Routine 03/06/2018 4:00 AM Results for this [facility] procedure are in the results section. PROTHROMBIN TIME WITH INR Routine 03/06/2018 4:00 AM Results for this [facility] procedure are in the results section. PHOSPHORUS LEVEL Routine 03/06/2018 4:00 AM Results for this [facility] procedure are in the results section. BASIC METABOLIC PANEL Routine 03/06/2018 4:00 AM Results for this [facility] procedure are in the results section. POC GLUCOSE Routine 03/05/2018 10:56 PM Results for this [facility] procedure are in the results section. POC GLUCOSE Routine 03/05/2018 5:37 PM Results for this [facility] procedure are in the results section. POC GLUCOSE Routine 03/05/2018 12:11 PM Results for this [facility] procedure are in the results section. TROPONIN Timed 03/05/2018 8:00 AM Results for this [facility] procedure are in the results section. POC GLUCOSE Routine 03/05/2018 7:27 AM Results for this [facility] procedure are in the results section. ESTIMATED GFR Routine 03/05/2018 4:15 AM Results for this [facility] procedure are in the results section. PROTHROMBIN TIME WITH INR Routine 03/05/2018 4:15 AM Results for this [facility] procedure are in the results section. HC COMPLETE BLD COUNT Routine 03/05/2018 4:15 AM Results for this W/AUTO DIFF [facility] procedure are in the results section. PHOSPHORUS LEVEL Routine 03/05/2018 4:15 AM Results for this [facility] procedure are in the results section. MAGNESIUM LEVEL Routine 03/05/2018 4:15 AM Results for this [facility] procedure are in the results section. BASIC METABOLIC PANEL Routine 03/05/2018 4:15 AM Results for this [facility] procedure are in the results section. TROPONIN Timed 03/05/2018 4:15 AM Results for this [facility] procedure are in the results section. POC GLUCOSE Routine 03/04/2018 9:07 PM Results for this [facility] procedure are in the results section. XR CHEST 1 VW PORTABLE STAT 03/04/2018 7:03 PM Results for this [facility] procedure are in the results section. TYPE AND SCREEN Routine 03/04/2018 6:09 PM Results for this [facility] procedure are in the results section. POC GLUCOSE Routine 03/04/2018 5:58 PM Results for this [facility] procedure are in the results section. TROPONIN Timed 03/04/2018 4:00 PM Results for this [facility] procedure are in the results section. TROPONIN Routine 03/04/2018 2:17 PM Results for this [facility] procedure are in the results section. ECG 12-LEAD Routine 03/04/2018 1:48 PM Results for this [facility] procedure are in the results section. POC GLUCOSE Routine 03/04/2018 1:39 PM Results for this [facility] procedure are in the results section. POC GLUCOSE Routine 03/04/2018 11:53 AM Results for this [facility] procedure are in the results section. US DUPLEX HEMODIALYSIS AVG STAT 03/04/2018 9:20 AM Results for this AVF ACCESS [facility] procedure are in the results section. HEMODIALYSIS Routine 03/04/2018 9:05 AM [facility] POC GLUCOSE Routine 03/04/2018 7:47 AM Results for this [facility] procedure are in the results section. PROTHROMBIN TIME WITH INR Routine 03/04/2018 4:20 AM Results for this [facility] procedure are in the results section. HC COMPLETE BLD COUNT Routine 03/04/2018 4:20 AM Results for this W/AUTO DIFF [facility] procedure are in the results section. ESTIMATED GFR Routine 03/04/2018 4:00 AM Results for this [facility] procedure are in the results section. FERRITIN LEVEL Routine 03/04/2018 4:00 AM Results for this [facility] procedure are in the results section. TOTAL IRON BINDING CAPACITY Routine 03/04/2018 4:00 AM Results for this [facility] procedure are in the results section. PHOSPHORUS LEVEL Routine 03/04/2018 4:00 AM Results for this [facility] procedure are in the results section. MAGNESIUM LEVEL Routine 03/04/2018 4:00 AM Results for this [facility] procedure are in the results section. BASIC METABOLIC PANEL Routine 03/04/2018 4:00 AM Results for this [facility] procedure are in the results section. POC GLUCOSE Routine 03/03/2018 9:09 PM Results for this [facility] procedure are in the results section. POC GLUCOSE Routine 03/03/2018 5:17 PM Results for this [facility] procedure are in the results section. POC GLUCOSE Routine 03/03/2018 11:38 AM Results for this [facility] procedure are in the results section. POC GLUCOSE Routine 03/03/2018 7:23 AM Results for this [facility] procedure are in the results section. ESTIMATED GFR Routine 03/03/2018 4:00 AM Results for this [facility] procedure are in the results section. BASIC METABOLIC PANEL Routine 03/03/2018 4:00 AM Results for this [facility] procedure are in the results section. HC COMPLETE BLD COUNT Routine 03/03/2018 3:30 AM Results for this W/AUTO DIFF [facility] procedure are in the results section. HEMODIALYSIS CATHETER Routine 03/02/2018 8:59 PM ESRD (end Results for this PLACEMENT [facility] stage renal procedure are in disease) (HCC) the results section. POC GLUCOSE Routine 03/02/2018 6:33 PM Results for this [facility] procedure are in the results section. HEMODIALYSIS Routine 03/02/2018 5:35 PM [facility] POC GLUCOSE Routine 03/02/2018 5:26 PM Results for this [facility] procedure are in the results section. POC GLUCOSE Routine 03/02/2018 11:35 AM Results for this [facility] procedure are in the results section. POC GLUCOSE Routine 03/02/2018 7:28 AM Results for this [facility] procedure are in the results section. ESTIMATED GFR Routine 03/02/2018 4:00 AM Results for this [facility] procedure are in the results section. PHOSPHORUS LEVEL Routine 03/02/2018 4:00 AM Results for this [facility] procedure are in the results section. BASIC METABOLIC PANEL Routine 03/02/2018 4:00 AM Results for this [facility] procedure are in the results section. POC GLUCOSE Routine 03/01/2018 9:22 PM Results for this [facility] procedure are in the results section. POC GLUCOSE Routine 03/01/2018 5:40 PM Results for this [facility] procedure are in the results section. POC GLUCOSE Routine 03/01/2018 12:11 PM Results for this [facility] procedure are in the results section. POC GLUCOSE Routine 03/01/2018 7:54 AM Results for this [facility] procedure are in the results section. POC GLUCOSE Routine 03/01/2018 4:34 AM Results for this [facility] procedure are in the results section. HC COMPLETE BLD COUNT Routine 03/01/2018 4:30 AM Results for this W/AUTO DIFF [facility] procedure are in the results section. ESTIMATED GFR Routine 03/01/2018 4:00 AM Results for this [facility] procedure are in the results section. PHOSPHORUS LEVEL Routine 03/01/2018 4:00 AM Results for this [facility] procedure are in the results section. BASIC METABOLIC PANEL Routine 03/01/2018 4:00 AM Results for this [facility] procedure are in the results section. POC GLUCOSE Routine 02/28/2018 9:14 PM Results for this [facility] procedure are in the results section. POC GLUCOSE Routine 02/28/2018 4:04 PM Results for this [facility] procedure are in the results section. HEMODIALYSIS Routine 02/28/2018 12:09 PM [facility] POC GLUCOSE Routine 02/28/2018 11:34 AM Results for this [facility] procedure are in the results section. ECHOCARDIOGRAM 2D COMPLETE Routine 02/28/2018 9:13 AM Results for this W MMODE SPECTRAL COLOR [facility] procedure are in DOPPLER ([id number]) the results section. POC GLUCOSE Routine 02/28/2018 9:09 AM Results for this [facility] procedure are in the results section. CV INTRACARDIAC Routine 02/28/2018 8:48 AM Results for this ECHOCARDIOGRAM [facility] procedure are in the results section. CV PERICARDIOCENTESIS Routine 02/28/2018 8:48 AM Results for this [facility] procedure are in the results section. PROTEIN, MISC FLUID Routine 02/28/2018 8:35 AM Results for this [facility] procedure are in the results section. LDH, MISC FLUID Routine 02/28/2018 8:35 AM Results for this [facility] procedure are in the results section. GLUCOSE LEVEL, MISC FLUID Routine 02/28/2018 8:35 AM Results for this [facility] procedure are in the results section. CELL COUNT AND Routine 02/28/2018 8:35 AM Results for this DIFFERENTIAL, BODY FLUID [facility] procedure are in the results section. CYTOLOGY Routine 02/28/2018 6:32 AM Results for this (NON-GYNECOLOGICAL) REQUEST [facility] procedure are in the results section. ESTIMATED GFR Routine 02/28/2018 3:50 AM Results for this [facility] procedure are in the results section. PHOSPHORUS LEVEL Routine 02/28/2018 3:50 AM Results for this [facility] procedure are in the results section. MAGNESIUM LEVEL Routine 02/28/2018 3:50 AM Results for this [facility] procedure are in the results section. BASIC METABOLIC PANEL Routine 02/28/2018 3:50 AM Results for this [facility] procedure are in the results section. HC COMPLETE BLD COUNT Routine 02/28/2018 3:50 AM Results for this W/AUTO DIFF [facility] procedure are in the results section. PARTIAL THROMBOPLASTIN TIME Routine 02/28/2018 3:50 AM Results for this (PTT) [facility] procedure are in the results section. PROTHROMBIN TIME WITH INR Routine 02/28/2018 3:50 AM Results for this [facility] procedure are in the results section. POC GLUCOSE Routine 02/27/2018 9:20 PM Results for this [facility] procedure are in the results section. POC GLUCOSE Routine 02/27/2018 6:06 PM Results for this [facility] procedure are in the results section. POC GLUCOSE Routine 02/27/2018 12:08 PM Results for this [facility] procedure are in the results section. POC GLUCOSE Routine 02/27/2018 9:44 AM Results for this [facility] procedure are in the results section. POC GLUCOSE Routine 02/27/2018 8:14 AM Results for this [facility] procedure are in the results section. HC COMPLETE BLD COUNT Routine 02/27/2018 4:20 AM Results for this W/AUTO DIFF [facility] procedure are in the results section. ESTIMATED GFR Routine 02/27/2018 4:00 AM Results for this [facility] procedure are in the results section. PHOSPHORUS LEVEL Routine 02/27/2018 4:00 AM Results for this [facility] procedure are in the results section. BASIC METABOLIC PANEL Routine 02/27/2018 4:00 AM Results for this [facility] procedure are in the results section. POC GLUCOSE Routine 02/26/2018 10:28 PM Results for this [facility] procedure are in the results section. POC GLUCOSE Routine 02/26/2018 5:50 PM Results for this [facility] procedure are in the results section. POC GLUCOSE Routine 02/26/2018 2:30 PM Results for this [facility] procedure are in the results section. HEMODIALYSIS Routine 02/26/2018 2:04 PM [facility] HEPATITIS B SURFACE ANTIGEN STAT 02/26/2018 2:00 PM Results for this [facility] procedure are in the results section. US DUPLEX HEMODIALYSIS AVG STAT 02/26/2018 12:15 PM Results for this AVF ACCESS [facility] procedure are in the results section. PROTHROMBIN TIME WITH INR Routine 02/26/2018 10:20 AM Results for this [facility] procedure are in the results section. HEMOGLOBIN A1C Routine 02/26/2018 10:20 AM Results for this [facility] procedure are in the results section. XR CHEST 1 VW PORTABLE STAT 02/26/2018 9:39 AM Results for this [facility] procedure are in the results section. POC GLUCOSE Routine 02/26/2018 9:10 AM Results for this [facility] procedure are in the results section. ECG 12-LEAD STAT 02/26/2018 8:53 AM Results for this [facility] procedure are in the results section. ECHOCARDIOGRAM 2D COMPLETE STAT 02/26/2018 8:17 AM Results for this W MMODE SPECTRAL COLOR [facility] procedure are in DOPPLER ([id number]) the results section. POC GLUCOSE Routine 02/26/2018 4:57 AM Results for this [facility] procedure are in the results section. PREPARE RBC Timed 02/26/2018 1:50 AM [facility] ESTIMATED GFR STAT 02/26/2018 1:50 AM Results for this [facility] procedure are in the results section. TYPE AND SCREEN Timed 02/26/2018 1:50 AM Results for this [facility] procedure are in the results section. PROTHROMBIN TIME WITH INR STAT 02/26/2018 1:50 AM Results for this [facility] procedure are in the results section. COMPREHENSIVE METABOLIC STAT 02/26/2018 1:50 AM Results for this PANEL [facility] procedure are in the results section. HC COMPLETE BLD COUNT STAT 02/26/2018 1:50 AM Results for this W/AUTO DIFF [facility] procedure are in the results section. after 05/07/2017 Results POC glucose (03/11/2018 5:03 PM [facility])Only the most recent of67 resultswithin the time period is included. POC glucose 236 (H) 65 - 99 mg/dL [facility] Comment: [facility] Notified RN No Action Needed Meter ID: [id number] Machine Hostler: Pk Santillan Performing Organization Address City/State/Zipcode Phone Number [facility] DEPARTMENT OF PATHOLOGY AND [address] [place] [address] GENOMIC MEDICINE [facility] [address] [place] [id number] CBC with platelet and differential (03/11/2018 1:19 PM [facility])Only the most recent of11 resultswithin the time period is included. WBC 11.05 (H) 4.50 - 11.00 k/uL [facility] RBC 3.55 (L) 4.20 - 5.50 m/uL [facility] HGB 10.0 (L) 12.0 - 16.0 g/dL [facility] HCT 31.6 (L) 37.0 - 47.0 % [facility] MCV 89.0 82.0 - 100.0 fL [facility] MCH 28.2 27.0 - 34.0 pg [facility] MCHC 31.6 31.0 - 37.0 g/dL [facility] RDW - SD 58.7 (H) 37.0 - 55.0 fL [facility] MPV 11.9 8.8 - 13.2 fL [facility] Platelet count 246 150 - 400 k/uL [facility] Nucleated RBC 0.00 /100 WBC [facility] Neutrophils 78.5 (H) 39.0 - 69.0 % [facility] Lymphocytes 9.2 (L) 25.0 - 45.0 % [facility] Monocytes 6.8 0.0 - 10.0 % [facility] Eosinophils 4.0 0.0 - 5.0 % [facility] Basophils 0.5 0.0 - 1.0 % [facility] Immature granulocytes 1.0Comment: "Immature 0.0 - 1.0 % [facility] granulocytes" HOSPITAL (promyelocytes, myelocytes, metamyelocytes) Specimen Blood Performing Organization Address City/State/Zipcode Phone Number [facility] DEPARTMENT OF PATHOLOGY AND [address] [place] [address] GENOMIC MEDICINE [address] [address] Estimated GFR (03/11/2018 1:14 PM [facility]ER)Only the most recent of12 resultswithin the time period is included. Estimated GFR 11 (A) mL/min/1.73 m2 [facility] Comment: HOSPITAL CatergoryUnitsInterpretation G1 >=90 Normal or high G2 60-89Mildly decreased L6v62-61Jjapti to moderately decreased I1p35-84Jsptvuvrwn to severely decreased G4 15-29Severely decreased G5 <15Kidney failure The eGFR was calculated using the Chronic Kidney Disease Epidemiology Collaboration (CKD-EPI) equation. Interpretation is based on recommendations of the National Kidney Foundation-Kidney Disease Outcomes Quality Initiative (NKF-KDOQI) published in 2014. Specimen Plasma specimen Performing Organization Address City/[facility] Phone Number [facility] DEPARTMENT OF PATHOLOGY AND [address] [place] [address] Phosphorus level (03/11/2018 1:14 PM BIT TRIPOLER)Only the most recent of10 resultswithin the time period is included. Phosphorus 2.8 2.4 - 4.5 mg/dL [facility] Specimen Plasma specimen Performing Organization Address [facility] [place], [place] Phone Number [facility] DEPARTMENT OF PATHOLOGY AND [address] [place] [address] Basic metabolic panel (03/11/2018 1:14 PM BIT TRIPOLER)Only the most recent of11 resultswithin the time period is included. Sodium 135 135 - 148 mEq/L [facility] Potassium 4.0 3.5 - 5.0 mEq/L [facility] Chloride 95 (L) 98 - 112 mEq/L [facility] CO2 27 24 - 31 mEq/L [facility] Anion gap 13@ANIO 7 - 15 mEq/L [facility] BUN 28 (H) 8 - 23 mg/dL [facility] Creatinine 3.75 (H) 0.50 - 0.90 mg/dL [facility] Glucose 186 (H) 65 - 99 mg/dL [facility] Calcium 9.3 8.8 - 10.2 mg/dL [facility] Specimen Plasma specimen Performing Organization Address [facility] [place], [place] Phone Number [facility] DEPARTMENT OF PATHOLOGY AND [address] [place] [address] Echocardiogram complete w contrast and 3D if needed (03/09/2018 9:01 AM BIT TRIPOLER) Narrative Performed At [facility] Echocardiography Report [address] [address], [place] [address] Pat.Name:YEYO COLLINS MPat.ID:[id number] .Date: 03/09/2018Refer.MD:SCTOT PENA MD Exam Time: 9:04:00 AMStudy Type:Routine Echo Height:63inWeight: 127lb BSA: 1.6 t3EPXSrg:1935,82Y Sex: FEMALEBP:140/62 HR:86 bpmSonogrphr: Mariposa Dent [facility] Pat. Stat.:Inpatient Room: 100 Study Status:Final Echo Event ID:[id number] Order ID:[id number] Reason for Study:Pericardial effusion History / Clinical:Congestive [...] RAPof 15 mmHg. MEASUREMENTS: 2D Parasternal [place] LA Ds4.5 cmAo An2.4 cm LVIDd4.1 cmIndex2.6 cm/m Ao Rtd 3 cm Index1.9 cm/m LVIDs2.4 cmLV Cdfa759.4 g(87-129) LV%fs 41.5 % LVM Psphs475.4 g/m2 IVSd 1.3 cmRWT0.7 LVPWd1.4 cmLVOT 1.8 cm LA Sng Plane LA Area 27.5 cm2(8.8-23.4) LA Vol90.4 ml Index56.5 ml/m LA LngAx 6.9 cm DOPPLER AV For Flow/ZHENG AV pkVel 219.1 cm/s (100-170) AV AC/ET 0.3 AV mnVel 154.4 cm/Marilyn TVI44.5 cm AV pkPG 19.2 mmHgAVpkAcRt 6985.6 cm/s2 AV Mean G 11.2 mmHgAV XrTa823.3 cm/s2 AV AC 88 msec (83-118) AV [...] Radiology Results In - 03/09/2018 4:57 PM BIT TRIPOLER Echocardiography Report [address] [place] [address] Pat.Name: YEYO COLLINS Pat.ID: [id number] .Date: 03/09/2018 Refer.MD: SCOTT PENA MD Exam Time: 9:04:00 AM Study Type:Routine Echo Height: 63in Weight: 127lb BSA: 1.6 m2 Age: 4 1935,82Y Sex: FEMALE BP: 140/62 HR: 86 bpm Sonogrphr: PARTHA Wallace Pat. Stat.:Inpatient Room: D 1005 Study Status:Final Echo Event ID:[id number] Order ID: [id number] Reason for Study:Pericardial effusion History / Clinical:Congestive [...] of 15 mmHg. MEASUREMENTS: 2D Parasternal [place] LA Ds 4.5 cm Ao An 2.4 [...] Address City/State/Zipcode Phone Number [facility] [address] [place] [address] Transfuse RBC (03/08/2018 9:05 PM BIT TRIPOLER)Only the most recent of3 resultswithin the time period is included.IR Tunneled Dialysis Catheter Placement (03/08/2018 2:53 PM BIT TRIPOLER) Narrative Performed At Procedure: Placement of tunneled dialysis catheter [facility] Clinical History: End-stage renal disease Sedation: Versed and fentanyl were utilized for monitored conscious sedation during the procedure. The patient was transferred to the recovery room at the end of the procedure for further monitoring. Sdfq-ch-dnxd time 20 minutes Anesthesia: Local Radiation dose: [...] the right atrium under fluoroscopy. A 4 Mongolian catheter was placed. Local anesthesia was then administered from the infraclavicular region to the initial puncture site. The 28 cm Palindrome dialysis catheter was brought through the tunnel. An Amplatz guidewire was advanced through the 4 Mongolian catheter and after dilatation, the dialysis catheter [...] above. Blood Loss: Less than 5 mL [facility]-[id number] Procedure Note Interface, Radiology Results Incoming - 03/08/2018 3:04 PM BIT TRIPOLER Procedure: Placement of tunneled dialysis catheter Clinical History: End-stage renal disease Sedation: Versed and fentanyl were utilized for monitored conscious sedation during the procedure. The patient was transferred to the recovery room at the end of the procedure for further monitoring. Dzdj-rt-hdxj time 20 minutes Anesthesia: Local Radiation dose: [...] the right atrium under fluoroscopy. A 4 Mongolian catheter was placed. Local anesthesia was then administered from the infraclavicular region to the initial puncture site. The 28 cm Palindrome dialysis catheter was brought through the tunnel. An Amplatz guidewire was advanced through the 4 Mongolian catheter and after dilatation, the dialysis catheter [...] above. Blood Loss: Less than 5 mL [facility]-[id number] Performing Organization Address [facility] [place], [place] Phone Number [facility] [address] [place] [address] Prepare RBC, 2 Units (03/08/2018 10:58 AM BIT TRIPOLER) Product name Red Blood Cells [address] Unit number [id number] [facility] Product code [id number] [facility] Dispense status Transfused [facility] Blood expiration date [facility] Blood type code 6200 [facility] Blood type A POSITIVE [facility] Product name Red Blood Cells [facility] Unit number [id number] [facility] Product code [id number] [facility] Dispense status Transfused [facility] Blood expiration date [facility] Blood type code 6200 [facility] Blood type A POSITIVE [facility] Performing Organization Address City/[facility] Phone Number [facility] DEPARTMENT OF PATHOLOGY AND [address] [place] [phone] [place] [address] Type and screen (03/08/2018 10:58 AM BIT TRIPOLER)Only the most recent of3 resultswithin the time period is included. ABO grouping A [facility] Rh type POS [facility] Antibody screen (gel) NEG [facility] Specimen Blood Performing Organization Address City/[facility] Phone Number [facility] DEPARTMENT OF PATHOLOGY AND [address] [place] [phone] [place] [address] Smear review (03/08/2018 4:37 AM BIT TRIPOLER) Platelet slide review Alex adequate [facility] Anisocytosis Moderate [facility] Polychromasia Moderate [facility] Schistocytes Occasional [facility] Ovalocytes Moderate [facility] [place] cells Moderate (A) [facility] Acanthocytes Occasional [facility] Performing Organization Address [facility] [place], [place] Phone Number [facility] DEPARTMENT OF PATHOLOGY AND [address] [place] [address] [address] Sodium level, syringe (03/07/2018 12:40 PM BIT TRIPOLER) Sodium, syringe 130 (L) 135 - 148 mEq/L [facility] Specimen Blood Performing Organization Address [facility] [place], [place] Phone Number [facility] DEPARTMENT OF PATHOLOGY AND [address] [place] [address] [address] Potassium, syringe (03/07/2018 12:40 PM BIT TRIPOLER) Potassium, syringe 4.6 3.5 - 5.0 mEq/L [facility] Specimen Blood Performing Organization Address [facility] Phone Number [facility] DEPARTMENT OF PATHOLOGY AND [address] [place] [phone] [place] [address] Hemoglobin, syringe (03/07/2018 12:40 PM BIT TRIPOLER) Hemoglobin, syringe 7.5 (L) 12.0 - 16.0 g/dL [facility] Specimen Blood Performing Organization Address [facility] Phone Number [facility] DEPARTMENT OF PATHOLOGY AND [address] [place] [phone] [place] [address] Glucose level, syringe (03/07/2018 12:40 PM BIT TRIPOLER) Glucose, syringe 132 (H) 65 - 99 mg/dL [facility] Specimen Blood Performing Organization Address [facility] Phone Number [facility] DEPARTMENT OF PATHOLOGY AND [address] [place] [address] C difficile toxin (03/06/2018 6:20 AM BIT TRIPOLER) Clostridium difficile No Clostridium difficle toxin present [facility] Comment: HOSPITAL Specimen Information Specimen Source: Stool Specimen Site: Nonpreserved Specimen Stool - Nonpreserved Performing Organization Address [facility] [place], [place] Phone Number [facility] DEPARTMENT OF PATHOLOGY AND [address] [place] [address] Prothrombin time with INR (03/06/2018 4:00 AM BIT TRIPOLER)Only the most recent of6 resultswithin the time period is included. Prothrombin time 14.2 11.5 - 14.5 sec [facility] INR 1.1 [facility] Comment: [facility] The International Normalized Ratio (INR) is a therapeutic monitoring tool for patients who are stable on oral anticoagulant therapy. An INR of 2.0-3.0 is suggested for deep vein thrombosis/pulmonary embolism. Specimen Blood Performing Organization Address [facility] [place], [place] Phone Number [facility] DEPARTMENT OF PATHOLOGY AND [address] [place] [address] Troponin (03/05/2018 8:00 AM BIT TRIPOLER)Only the most recent of4 resultswithin the time period is included. Troponin <0.30 0.00 - 0.30 ng/mL [facility] Comment: 0.30 - 1.49 ng/mlMay indicate increased risk of acute coronary syndrome. >=1.5 ng/mlConsistent with acute myocardial infarction. The diagnostic value of a single normal or non-diagnostic result is questionable.Serial samples at 2-6 hour intervals are required to rule out acute myocardial injury. Specimen Plasma specimen Performing Organization Address City/[facility]/Zipcode Phone Number [facility] DEPARTMENT OF PATHOLOGY AND [address] [place] [address] [address] Magnesium level (03/05/2018 4:15 AM BIT TRIPOLER)Only the most recent of3 resultswithin the time period is included. Magnesium 1.7 1.6 - 2.4 mg/dL [facility] Specimen Plasma specimen Performing Organization Address [facility] Phone Number [facility] DEPARTMENT OF PATHOLOGY AND [address] [place] [address] [facility] [address] [place] [address] XR Chest 1 Vw Portable (03/04/2018 7:03 PM BIT TRIPOLER)Only the most recent of2 resultswithin the time [...] is unchanged. No pneumothorax. [facility]-[id number] Procedure Note Interface, Radiology Results Incoming - 03/04/2018 7:16 PM BIT TRIPOLER EXAMINATION: XR CHEST 1 VW PORTABLE CLINICAL [...] is unchanged. No pneumothorax. [id number] Performing Organization Address [facility]/Zipcode Phone Number [facility] [address] [place] [address] ECG 12 lead (03/04/2018 1:48 PM BIT TRIPOLER)Only the most recent of2 resultswithin the time period is included. Ventricular rate 75 [facility] Atrial rate 75 [facility] MS interval 204 [facility] QRSD interval 76 [...] inversion less evident in Anterolateral leads-QT has H MUSE lengthened- 5: 22:27 PM Narrative Performed At Performing Organization Address City/State/Zipcode Phone Number [facility] MUSE [address] duplex hemodialysis avg avf access (03/04/2018 9:20 AM BIT TRIPOLER)Only the most recent of2 resultswithin the time period is included. Narrative Performed At [facility] Vascular Ultrasound Laboratory AV Graft - Fistula Report [address]Name:YEYO COLLINS [facility].ID:[id number] .Date: 03/04/2018Refer.MD:SCOTT PENA MD Exam Time: 8:11:00 AMStudy Type:AV Graft - Fistula Height:63inWeight: 123lb BSA: 1.57 m2 DOBAge:1935,82Y Sex: FEMALESonogrphr: Aubree Villela RVT Pat. Stat.:Inpatient Room:[address] TapeVol: , CPT - 4: [address] Echo Event ID:[id number] Order ID:[id number] Reason for Study:AV-graft without thrill and buit.History [...] BrachialProximal-third 82 cm/sec Mid-third47 cm/sec Distal-third40 cm/sec Drvntsjsrqi93cr/sec,0cm/sec AV-GraftJaxta0 cm/sec Arterial fmcm4ar/sec Venous otts4lp/sec Vbnpgtojedo87ei/sec Axillary VeinDistal-vnrya40lu/sec Subclavian Vein Mid-zzwjp07ah/sec VOLUME FLOW: Iptoredm66 cc/min 83 cc/min PRELIMINARY FINDINGS: 1. Occluded [...] Radiology Results In - 03/04/2018 2:26 PM [facility] Vascular Ultrasound Laboratory AV Graft - Fistula Report [address] [address] Pat.Name: YEYO COLLINS Pat.ID: [id number] .Date: 03/04/2018 Refer.: SCOTT PENA MD Exam Time: 8:11:00 AM Study Type:AV Graft - Fistula Height: 63in Weight: 123lb BSA: 1.57 m2 Age: 4 1935,82Y Sex: FEMALE Sonogrphr: Aubree Villela RVT Pat. Stat.:Inpatient Room: [address] Tape Vol: YM, CPT - 4: 6[address] Echo Event ID:[id number] Order ID: [id number] Reason for Study:AV-graft without thrill and buit. [...] Address City/State/Zipcode Phone Number [facility] [address] [place] [address] Total iron binding capacity (03/04/2018 4:00 AM BIT TRIPOLER) Iron level 36 (L) 37 - 145 ug/dL [facility] Iron binding capacity 118 (L) 200 - 400 ug/dL [facility] % Saturation 30.5 15.0 - 38.0 % [facility] Specimen Plasma specimen Performing Organization Address City/[facility] Phone Number [facility] DEPARTMENT OF PATHOLOGY AND [address] [place] [phone] [place] [address] Ferritin level (03/04/2018 4:00 AM BIT TRIPOLER) Ferritin level 978 (H) 13 - 150 ng/mL [facility] Specimen Plasma specimen Performing Organization Address City/[facility] Phone Number [facility] DEPARTMENT OF PATHOLOGY AND [address] [place] [address] HEMODIALYSIS CATHETER PLACEMENT (03/02/2018 8:59 PM BIT TRIPOLER) Narrative Performed At Chava Hill MD 03/03/2018 12:44 PM Hemodialysis catheter placement Date/Time: 03/02/2018 8:59 PM Performed by: Rodriguez Edwards MD Authorized by: Chava Hill MD Consent: Consent obtained:Verbal and written Consent given by:Patient Risks discussed:Arterial puncture, incorrect placement, nerve damage, infection and bleeding Alternatives discussed:Delayed treatment Tennyson protocol: Procedure explained and questions answered to [...] and 3D if needed (02/28/2018 9:13 AM BIT TRIPOLER) Narrative Performed At [facility] Echocardiography Report [address] [address] Pat.Name:YEYO COLLINS.ID:[id number] .Date: 02/28/2018 Refer.MD:SCOTT PENA MD Exam Time: 8:01:00 AMStudy Type:Routine Echo Height:63inWeight: 151lb BSA: 1.72 m2 DOBAge:1935,82Y Sex: FEMALEBP:126/62 HR:86 bpmSonogrphr: PARTHA Grant Pat. Stat.:Inpatient Room:[address] [address] Study Status:Final Echo Event ID:[id number] Order ID:[id number] Reason for Study:Periocardiocentesis History / Clinical:Congestive Heart [...] Radiology Results In - 02/28/2018 4:12 PM [facility] Echocardiography Report [address] [place] [address] Pat.Name: YEYO COLLINS Pat.ID: [id number] .Date: 02/28/2018 Refer.MD: SCOTT PENA MD Exam Time: 8:01:00 AM Study Type:Routine Echo Height: 63in Weight: 151lb BSA: 1.72 m2 Age: 4 1935,82Y Sex: FEMALE BP: 126/62 HR: 86 bpm Sonogrphr: PARTHA Grant Pat. Stat.:Inpatient Room: [address] [address] Study Status:Final Echo Event ID:[id number] Order ID: [id number] Reason for Study:Periocardiocentesis History / Clinical:Congestive Heart [...] Performing Organization Address City/State/Zipcode Phone Number [facility] [address] [place] [address] Cv clinical laboratory scientist procedure (02/28/2018 8:48 AM BIT TRIPOLER) Narrative Performed At S/p successful pericardiocentesis assisted with US and fluoroscopy. [facility] Micropuncture catheter used to obtain access to pericardial space and exchange for pericardial drain. Performing Organization Address City/State/Zipcode Phone Number [facility] [address] [place] [address] Cell count and differential, body fluid (02/28/2018 8:35 AM BIT TRIPOLER) Misc fluid type Pericardial [facility] Color, fluid Red [facility] Appearance, fluid Hazy [facility] RBC, fluid 170,000 /CMM [facility] Nucleated cells, fluid 137 /CMM [facility] Fluid mononuclear cell See Diff [facility] Neutrophils, fluid 40 % [facility] Lymphocytes, fluid 23 % [facility] Eosinophils, fluid 5 % [facility] Macrophages, fluid 32 % [facility] Specimen Fluid Narrative Performed At Pericardial fluid [facility] DEPARTMENT OF PATHOLOGY AND GENOMIC MEDICINE Performing Organization Address City/[facility] Phone Number [facility] DEPARTMENT OF PATHOLOGY AND [address] [place] [address] GENOMIC MEDICINE [address] [address] Protein, misc fluid (02/28/2018 8:35 AM BIT TRIPOLER) Fluid type Pericardial [facility] Protein, fluid 4.3 g/dL [facility] Comment: Analysis performed on Mickey 8000 analyzer. This is not an approved methodology for this specimen type;accuracy and clinical significance uncertain. Specimen Fluid Narrative Performed At Pericardial fluid [facility] DEPARTMENT OF PATHOLOGY AND GENOMIC MEDICINE Performing Organization Address City/[facility] Phone Number [facility] DEPARTMENT OF PATHOLOGY AND [address] [place] [address] GENOMIC MEDICINE [address] [address] LDH, misc fluid (02/28/2018 8:35 AM BIT TRIPOLER) Fluid type Pericardial [facility] LDH, fluid 348 U/L [facility] Comment: Analysis performed on Mickey 8000 analyzer. This is not an approved methodology for this specimen type;accuracy and clinical significance uncertain. Specimen Fluid Narrative Performed At Pericardial fluid [facility] DEPARTMENT OF PATHOLOGY AND GENOMIC MEDICINE Performing Organization Address City/State/Zipcode Phone Number [facility] DEPARTMENT OF PATHOLOGY AND [address] [place] [address] [facility] [address] [address] Glucose level, misc fluid (02/28/2018 8:35 AM BIT TRIPOLER) Fluid type Pericardial [facility] Glucose, fluid 126 mg/dL [facility] Comment: Analysis performed on Mickey 8000 analyzer. This is not an approved methodology for this specimen type;accuracy and clinical significance uncertain. Specimen Fluid Narrative Performed At Pericardial fluid [facility] DEPARTMENT OF PATHOLOGY AND GENOMIC MEDICINE Performing Organization Address City/State/Zipcode Phone Number [facility] DEPARTMENT OF PATHOLOGY AND [address] [place] [address] Cytology (non-gynecological) request (02/28/2018 6:32 AM BIT TRIPOLER) [facility] DEPARTMENT OF PATHOLOGY AND GENOMIC MEDICINE Cytology See link below for PDF [facility] DEPARTMENT OF (non-gynecological) report Lab Report PATHOLOGY AND GENOMIC MEDICINE Result status This is Final Report [facility] DEPARTMENT OF for [id number] PATHOLOGY AND GENOMIC MEDICINE Performing Organization Address City/[facility] Phone Number [facility] DEPARTMENT OF PATHOLOGY AND [address] [place] [address] Partial thromboplastin time, activated (02/28/2018 3:50 AM BIT TRIPOLER) PTT 35.1 23.0 - 36.0 sec [facility] Comment: PTT therapeutic range for unfractionated heparin is 61.0-112.0 seconds which corresponds to Anti-Xa 0.3-0.7 U/ml. Specimen Blood Performing Organization Address City/[facility] Phone Number [facility] DEPARTMENT OF PATHOLOGY AND [address] [place] [address] Hepatitis B surface antigen (02/26/2018 2:00 PM BIT TRIPOLER) Hepatitis B surface Ag Non-reactive Non-reactive [facility] Specimen Blood Performing Organization Address City/[facility]/Zipcode Phone Number [facility] DEPARTMENT OF PATHOLOGY AND [address] [place] [address] Hemoglobin A1c (02/26/2018 10:20 AM BIT TRIPOLER) Hemoglobin A1C 5.5 4.0 - 5.6 % [facility] Comment: HbA1c cutoffs for diagnosing diabetes: 4.0% - 5.6%=normal 5.7% - 6.4%=increased risk for diabetes (prediabetes) >=6.5%=diabetes Goals for glycemic control (ADA 2016) < 7.0%Target for non adults with diabetes. More or less stringent targets may be appropriate for individual patients. <7.5% Target for Children and adolescents with type 1 diabetes. Specimen Blood Performing Organization Address City/State/Zipcode Phone Number [facility] DEPARTMENT OF PATHOLOGY AND [address] [place] [address] GENOMIC MEDICINE [address] [address] Echocardiogram complete w contrast and 3D if needed (02/26/2018 8:17 AM BIT TRIPOLER) Narrative Performed At [facility] Echocardiography Report [address] [place] [address] Pat.Name:YEYO COLLINS.ID:[id number] .Date: 02/26/2018 Refer.MD:HERMAN FARGA MD Exam Time: 7:27:00 AMStudy Type:Routine Echo Height:63inWeight: 151lb BSA: 1.72 m2 DOBAge:1935,82Y Sex: FEMALEBP:141/71 HR:87 bpm Sonogrphr: Laya Coffman RDCS, RVT Pat. Stat.:Inpatient Room:[address] Study Status:Final Echo Event ID:[id number] Order ID:[id number] Reason for Study:Pre-op clearance History / Clinical:Congestive [...] RAPof 10 mmHg. MEASUREMENTS: 2D Parasternal [place] LVOT 1.9 cmLA Ds3.9 cm LVIDd2.9 cmIndex1.7 cm/m Ao Rtd 3.1 cm Index1.8 cm/m LVIDs1.9 cmLV Rpty366.4 g(87-129) LV%fs 35.7 % LVM Qmlgb230.1 g/m2 IVSd 1.6 cmRWT1.3 LVPWd1.9 cm LA Sng Plane LA Area 25.8 cm2(8.8-23.4) LA Vol84.5 ml Index49.1 ml/m LA LngAx 6.2 cm Aorta Ao Asc 3.7 cm (2.1-3.4) DOPPLER AV For Flow/ZHENG AV pkVel 227 cm/s (100-170) AV AC/ET 0.3 AV mnVel 148 cm/Marilyn TVI41.9 cm AV pkPG 20.6 mmHgAVpkAcRt 4164.3 cm/s2 AV Mean G 10.6 mmHgAV XuJq709.8 cm/s2 AV AC 83 msec (83-118) AV Area1.4 cm2(3-5) AV ET283 msec LVOT For Flow LVOT Area2.8 cm2 LVOT SV 60.5 ml HHCXzcLvy973.7 cm/sHR77.1 bpm LVOTpkPG 4.1 mmHgLVOT CO4.7 l/min LVOTmnPG 2.4 mmHgLVOT CI2.7 l/m/m2 LVOT TVI21.3 cm MV For Flow/Valve Assess MV Dec T 859 msecMV Mean G3.9 mmHg MV pkVel 172.7 cm/sMV TVI33.2 cm MV pkPG 11.9 mmHg Signed 02/26/2018 02:41 PM Marilee King M.D. Procedure Note Interface, Radiology Results In - 02/26/2018 2:41 PM [facility]OLER Echocardiography Report [id number] [place] [address] Pat.Name: YEYO COLLINS Pat.ID: [id number] .Date: 02/26/2018 Refer.MD: HERMAN FRAGA MD Exam Time: 7:27:00 AM Study Type:Routine Echo Height: 63in Weight: 151lb BSA: 1.72 m2 Age: 3 1935,82Y Sex: FEMALE BP: 141/71 HR: 87 bpm Sonogrphr: Laya Coffman RDCS, RVT Pat. Stat.:Inpatient Room: [facility] B Study Status:Final Echo Event ID:[id number] Order ID: [id number] Reason for Study:Pre-op clearance History / Clinical:Congestive [...] of 10 mmHg. MEASUREMENTS: 2D Parasternal [place] LVOT 1.9 cm LA Ds 3.9 cm [...] Address City/State/Zipcode Phone Number [facility] [id number] [place] [address] Comprehensive metabolic panel (02/26/2018 1:50 AM BIT TR[facility]OLER) Sodium 138 135 - 148 mEq/L [facility] Potassium 3.5 3.5 - 5.0 mEq/L [facility] Chloride 100 98 - 112 mEq/L [facility] CO2 26 24 - 31 mEq/L [facility] Anion gap 12@ANIO 7 - 15 mEq/L [facility] BUN 12 8 - 23 mg/dL [facility] Creatinine 3.07 (H) 0.50 - 0.90 mg/dL [facility] Glucose 110 (H) 65 - 99 mg/dL [facility] Calcium 9.5 8.8 - 10.2 mg/dL [facility] Protein 6.6 6.3 - 8.3 g/dL [facility] Comment: [facility] [place] 4.6-7.0 g/dL 1 week 4.4-7.6 g/dL 7 months-1year5.1-7.3 g/dL 1-2 years5.6-7.5 g/dL >3 years6.0-8.0 g/dL 18-150 6.3-8.3 g/dL Albumin 2.7 (L) 3.5 - 5.0 g/dL [facility] A/G ratio 0.7 0.7 - 3.8 [facility] Alkaline phosphatase 64 35 - 104 U/L [facility] AST 20 10 - 35 U/L [facility] ALT 8 5 - 50 U/L [facility] Total bilirubin 0.4 0.0 - 1.2 mg/dL [facility] Specimen Plasma specimen Performing Organization Address City/State/Zipcode Phone Number [facility] DEPARTMENT OF PATHOLOGY AND [address] [place] [address] GENOMIC MEDICINE [address] [address] after 05/07/2017 Insurance Payer Benefit Plan / Group Subscriber ID Type Phone Address MEDICARE MEDICARE PART A AND B xxxxxxxxxx Medicare [place], [place] MEDICA[place] MEDICAID xxxxxxxxx Medicaid Advance Directives Patient has advance care planning documents on file. For more information, please contact:[address] [address]
--- OUTSIDE RECORDS SUMMARY | 2018-05-08 16:33 | XMS REPORT ---
:1935 Author Organization [facility] Address [address] [place] [address] Care Team Providers Name Role Phone SENDY RENÉE Verdugo Unavailable Unavailable Problems This patient has no known problems. Allergies, Adverse Reactions, Alerts This patient has no known allergies or adverse reactions. Medications This patient has no known medications. Results Test Description Test Time Test Comments Text Results Atomic Results Result Comments POCT-GLUCOSE METER 2018-03-29 13:22:00 Test Item Value Reference Range Comments POC-GLUCOSE METER (BEAKER) (test 148 mg/dL 70-[address] [facility] [address] [facility] dvdx=0119) [facility] [address] BASIC METABOLIC [id number] 09:04:00 Test Item Value Reference Range Comments SODIUM (BEAKER) (test 135 meq/L 136-145 mluf=384) POTASSIUM (BEAKER) (test 4.0 meq/L 3.5-5.1 oqpr=439) CHLORIDE (BEAKER) (test 103 meq/L 98-107 dnfr=330) CO2 (BEAKER) (test 24 meq/L 22-29 azqx=414) BLOOD UREA NITROGEN 23 mg/dL 7-21 (BEAKER) (test awys=836) CREATININE (BEAKER) (test 2.91 mg/dL 0.57-1.25 ouii=763) GLUCOSE RANDOM (BEAKER) 108 mg/dL 70-105 (test hfxq=346) CALCIUM (BEAKER) (test 9.1 mg/dL 8.4-10.2 nylp=634) EGFR (BEAKER) (test 16 mL/min/1.73 sq m ESTIMATED GFR IS NOT lkqy=4362) ACCURATE CREATININE CLEARANCE IN PREDICTING GLOMERULAR FILTRATION RATE. ESTIMATED GFR IS NOT APPLICABLE FOR DIALYSIS PATIENTS. Please draw today if not done already.POCT-GLUCOSE [id number] 08:48:00 Test Item Value Reference Range Comments POC-GLUCOSE METER (BEAKER) 127 mg/dL 70-110 TESTED AT [address] (test liuc=2369) [facility] [address] [id number] 08:14:00 Test Item Value Reference Range Comments MAGNESIUM (BEAKER) (test eyvx=112) 1.8 mg/dL 1.6-2.6 Please draw today if not done already.CBC (HEMOGRAM ONLY)2018-03-29 07:56:00 Test Item Value Reference Range Comments WHITE BLOOD CELL COUNT (BEAKER) (test fauv=138) 11.9 K/ L 3.5-10.5 RED BLOOD CELL COUNT (BEAKER) (test mimf=266) 3.64 M/ L 3.93-5.22 HEMOGLOBIN (BEAKER) (test lhne=620) 10.3 GM/DL 11.2-15.7 HEMATOCRIT (BEAKER) (test kfeb=491) 32.7 % 34.1-44.9 MEAN CORPUSCULAR VOLUME (BEAKER) (test rkym=387) 89.8 fL 79.4-94.8 MEAN CORPUSCULAR HEMOGLOBIN (BEAKER) (test 28.3 pg 25.6-32.2 vgpc=371) MEAN CORPUSCULAR HEMOGLOBIN CONC (BEAKER) (test 31.5 GM/DL 32.2-35.5 tjsm=750) RED CELL DISTRIBUTION WIDTH (BEAKER) (test 17.7 % 11.7-14.4 guzv=959) PLATELET COUNT (BEAKER) (test ztwk=722) 359 K/CU MM 150-450 MEAN PLATELET VOLUME (BEAKER) (test hcoy=865) 10.1 fL 9.4-12.3 NUCLEATED RED BLOOD CELLS (BEAKER) (test 0 /100 WBC 0-0 upmu=701) POCT-GLUCOSE [id number] 23:20:00 Test Item Value Reference Range Comments POC-GLUCOSE METER (BEAKER) 181 mg/dL 70-110 TESTED AT [address] (test dceo=5859) [facility] [address] POCT-GLUCOSE [id number] 18:54:00 Test Item Value Reference Range Comments POC-GLUCOSE METER (BEAKER) 162 mg/dL 70-110 TESTED AT [address] (test kbmw=6399) [place] [id number] C. DIFFICILE GDH [id number] 16:18:00 Test Item Value Reference Range Comments CDT TOXIN (test Negative Negative hxji=[id number]) CDT GDH ANTIGEN (test Negative Negative No indication of Clostridium vnia=[id number]) difficile infection and no colonization. Discontinue enteric isolation and therapy. Testing performed by [employer] Rapid Cassette Assay. For GDH, published sensitivity of the assay is 98.7% compared to cytotoxicity testing. For Toxin AB, published sensitivity is 87.8% and specificity 99.4% compared to cytotoxicity testing.Verification of kit performance was done by the [facility] prior to clinical use.POCT-GLUCOSE [id number] 15:35:00 Test Item Value Reference Range Comments POC-GLUCOSE METER (BEAKER) 162 mg/dL 70-110 TESTED AT [address] (test gaht=9912) [place] [id number] POCT-GLUCOSE [id number] 14:06:00 Test Item Value Reference Range Comments POC-GLUCOSE METER (BEAKER) 175 mg/dL 70-110 TESTED AT [address] (test mfsb=8622) [place] [id number] POCT-GLUCOSE [id number] 10:16:00 Test Item Value Reference Range Comments POC-GLUCOSE METER (BEAKER) 163 mg/dL 70-110 TESTED AT [address] (test jyou=9019) [facility] [address] BASIC METABOLIC [id number] 06:00:00 Test Item Value Reference Range Comments SODIUM (BEAKER) (test 132 meq/L 136-145 ttgo=391) POTASSIUM (BEAKER) (test 4.1 meq/L 3.5-5.1 bvoc=915) CHLORIDE (BEAKER) (test 101 meq/L 98-107 csup=252) CO2 (BEAKER) (test 21 meq/L 22-29 yjmq=099) BLOOD UREA NITROGEN 40 mg/dL 7-21 (BEAKER) (test qdsw=827) CREATININE (BEAKER) (test 4.19 mg/dL 0.57-1.25 zyzf=346) GLUCOSE RANDOM (BEAKER) 122 mg/dL 70-105 (test vdsb=125) CALCIUM (BEAKER) (test 9.3 mg/dL 8.4-10.2 zggo=936) EGFR (BEAKER) (test 10 mL/min/1.73 sq m ESTIMATED GFR IS NOT capc=8196) ACCURATE CREATININE CLEARANCE IN PREDICTING GLOMERULAR FILTRATION RATE. ESTIMATED GFR IS NOT APPLICABLE FOR DIALYSIS PATIENTS. Please draw today if not done already.[id number] 05:59:00 Test Item Value Reference Range Comments MAGNESIUM (BEAKER) (test pwkg=660) 1.8 mg/dL 1.6-2.6 Please draw today if not done already.CBC (HEMOGRAM ONLY)2018-03-28 05:43:00 Test Item Value Reference Range Comments WHITE BLOOD CELL COUNT (BEAKER) (test ludd=779) 11.3 K/ L 3.5-10.5 RED BLOOD CELL COUNT (BEAKER) (test obiv=999) 3.61 M/ L 3.93-5.22 HEMOGLOBIN (BEAKER) (test gqqu=654) 10.1 GM/DL 11.2-15.7 HEMATOCRIT (BEAKER) (test tydg=179) 33.2 % 34.1-44.9 MEAN CORPUSCULAR VOLUME (BEAKER) (test ldmo=603) 92.0 fL 79.4-94.8 MEAN CORPUSCULAR HEMOGLOBIN (BEAKER) (test 28.0 pg 25.6-32.2 pfsg=772) MEAN CORPUSCULAR HEMOGLOBIN CONC (BEAKER) (test 30.4 GM/DL 32.2-35.5 davw=207) RED CELL DISTRIBUTION WIDTH (BEAKER) (test 18.2 % 11.7-14.4 iwja=509) PLATELET COUNT (BEAKER) (test ruxv=756) 357 K/CU MM 150-450 MEAN PLATELET VOLUME (BEAKER) (test ssvt=720) 9.7 fL 9.4-12.3 NUCLEATED RED BLOOD CELLS (BEAKER) (test 0 /100 WBC 0-0 lwqw=941) POCT-GLUCOSE [id number] 22:08:00 Test Item Value Reference Range Comments POC-GLUCOSE METER (BEAKER) 154 mg/dL 70-110 TESTED AT [address] (test dldd=5106) [facility] [address] POCT-GLUCOSE [id number] 17:45:00 Test Item Value Reference Range Comments POC-GLUCOSE METER (BEAKER) 215 mg/dL 70-110 TESTED AT [address] (test knkc=2341) [place] [address] ANG, AV-SHUNT, CATH INTRO WITH [id number] 16:13:00Reason for exam:-> LUE clotted hemodialysis vascular [...] left arm AV dialysis graft. Signed: Shaun Cunningham MDReport Verified Date/Time: 03/27/2018 16:13:07 Reading Location: [place] [address] Angio Body Reading Room POCT-GLUCOSE [id number] 13:21:00 Test Item Value Reference Range Comments POC-GLUCOSE METER (BEAKER) 201 mg/dL 70-110 TESTED AT [address] (test vbam=3879) [place] [address] POCT-GLUCOSE [id number] 09:57:00 Test Item Value Reference Range Comments POC-GLUCOSE METER (BEAKER) 95 mg/dL 70-110 TESTED AT [address] (test ldte=6774) [place] [address] BASIC METABOLIC [id number] 06:47:00 Test Item Value Reference Range Comments SODIUM (BEAKER) (test 132 meq/L 136-145 npnh=570) POTASSIUM (BEAKER) (test 3.7 meq/L 3.5-5.1 avjh=542) CHLORIDE (BEAKER) (test 103 meq/L 98-107 nihk=951) CO2 (BEAKER) (test 20 meq/L 22-29 rycd=669) BLOOD UREA NITROGEN 26 mg/dL 7-21 (BEAKER) (test gugb=827) CREATININE (BEAKER) (test 3.15 mg/dL 0.57-1.25 rlrm=445) GLUCOSE RANDOM (BEAKER) 100 mg/dL 70-105 (test chzi=650) CALCIUM (BEAKER) (test 8.9 mg/dL 8.4-10.2 ugqj=568) EGFR (BEAKER) (test mL/min/1.73 sq m INSUFFICIENT CLINICAL DATA ymqy=4331) TO CALCULATE ESTIMATED GFR. Please draw today if not done already.[id number] 06:38:00 Test Item Value Reference Range Comments MAGNESIUM (BEAKER) (test yslu=532) 1.8 mg/dL 1.6-2.6 Please draw today if not done already.CBC (HEMOGRAM ONLY)2018-03-27 06:11:00 Test Item Value Reference Range Comments WHITE BLOOD CELL COUNT (BEAKER) (test wstc=142) 10.8 K/ L 3.5-10.5 RED BLOOD CELL COUNT (BEAKER) (test sauk=549) 3.55 M/ L 3.93-5.22 HEMOGLOBIN (BEAKER) (test tjaj=383) 9.9 GM/DL 11.2-15.7 HEMATOCRIT (BEAKER) (test tzdv=104) 32.3 % 34.1-44.9 MEAN CORPUSCULAR VOLUME (BEAKER) (test krvi=974) 91.0 fL 79.4-94.8 MEAN CORPUSCULAR HEMOGLOBIN (BEAKER) (test 27.9 pg 25.6-32.2 hhic=096) MEAN CORPUSCULAR HEMOGLOBIN CONC (BEAKER) (test 30.7 GM/DL 32.2-35.5 vvhi=650) RED CELL DISTRIBUTION WIDTH (BEAKER) (test 18.0 % 11.7-14.4 abeh=196) PLATELET COUNT (BEAKER) (test uctc=888) 362 K/CU MM 150-450 MEAN PLATELET VOLUME (BEAKER) (test wncv=467) 10.0 fL 9.4-12.3 NUCLEATED RED BLOOD CELLS (BEAKER) (test 0 /100 WBC 0-0 vhxm=260) POCT-GLUCOSE [id number] 23:30:00 Test Item Value Reference Range Comments POC-GLUCOSE METER (BEAKER) 116 mg/dL 70-110 TESTED AT [address] (test ljew=9036) [place] [address] POCT-GLUCOSE [id number] 17:47:00 Test Item Value Reference Range Comments POC-GLUCOSE METER (BEAKER) 146 mg/dL 70-110 TESTED AT [address] (test gtjp=4354) [place] [address] [id number] 15:23:00 Test Item Value Reference Range Comments PHOSPHORUS (BEAKER) (test soxq=423) 2.0 mg/dL 2.3-4.7 POCT-GLUCOSE [id number] 14:54:00 Test Item Value Reference Range Comments POC-GLUCOSE METER (BEAKER) 127 mg/dL 70-110 TESTED AT [address] (test tqvn=7470) [place] [address] HEPATITIS B SURFACE [id number] 10:46:00 Test Item Value Reference Range Comments HEPATITIS B SURFACE ANTIGEN (2) (BEAKER) (test Nonreactive Nonreactive pdae=8103) POCT-GLUCOSE [id number] 09:05:00 Test Item Value Reference Range Comments POC-GLUCOSE METER (BEAKER) 145 mg/dL 70-110 TESTED AT [address] (test jsjv=8503) [place] [address] BASIC METABOLIC [id number] 06:36:00 Test Item Value Reference Range Comments SODIUM (BEAKER) (test 125 meq/L 136-145 qlrc=004) POTASSIUM (BEAKER) (test 4.2 meq/L 3.5-5.1 heur=417) CHLORIDE (BEAKER) (test 93 meq/L 98-107 isuw=930) CO2 (BEAKER) (test 19 meq/L 22-29 fzru=660) BLOOD UREA NITROGEN 75 mg/dL 7-21 (BEAKER) (test bfmo=062) CREATININE (BEAKER) (test 5.98 mg/dL 0.57-1.25 sadm=004) GLUCOSE RANDOM (BEAKER) 119 mg/dL 70-105 (test uczp=586) CALCIUM (BEAKER) (test 9.2 mg/dL 8.4-10.2 tpag=158) EGFR (BEAKER) (test mL/min/1.73 sq m INSUFFICIENT CLINICAL DATA pnmu=9155) TO CALCULATE ESTIMATED GFR. Please draw today if not done already.[id number] 06:25:00 Test Item Value Reference Range Comments MAGNESIUM (BEAKER) (test cwue=475) 1.9 mg/dL 1.6-2.6 Please draw today if not done already.PROTHROMBIN [id number] 05:41:00 Test Item Value Reference Range Comments PROTIME (BEAKER) (test yrfy=292) 14.8 seconds 11.7-14.7 INR (BEAKER) (test uzvd=802) 1.2 <=5.9 RECOMMENDED COUMADIN/WARFARIN INR THERAPY RANGESSTANDARD DOSE: 2.0 - 3.0 Includes: PROPHYLAXIS forvenous thrombosis, systemic embolization; TREATMENT for venous thrombosis and/or pulmonary embolus.HIGH RISK: Target INR is 2.5-3.5 for patients with mechanical heart valves.CBC (HEMOGRAM ONLY)2018-03-26 05:36:00 Test Item Value Reference Range Comments WHITE BLOOD CELL COUNT (BEAKER) (test tsqv=426) 12.0 K/ L 3.5-10.5 RED BLOOD CELL COUNT (BEAKER) (test tgur=152) 3.53 M/ L 3.93-5.22 HEMOGLOBIN (BEAKER) (test cepm=229) 10.0 GM/DL 11.2-15.7 HEMATOCRIT (BEAKER) (test fllb=734) 31.6 % 34.1-44.9 MEAN CORPUSCULAR VOLUME (BEAKER) (test aivr=858) 89.5 fL 79.4-94.8 MEAN CORPUSCULAR HEMOGLOBIN (BEAKER) (test 28.3 pg 25.6-32.2 wjan=041) MEAN CORPUSCULAR HEMOGLOBIN CONC (BEAKER) (test 31.6 GM/DL 32.2-35.5 fkjn=435) RED CELL DISTRIBUTION WIDTH (BEAKER) (test 17.7 % 11.7-14.4 pbcf=582) PLATELET COUNT (BEAKER) (test maxn=232) 401 K/CU MM 150-450 MEAN PLATELET VOLUME (BEAKER) (test bdcf=394) 10.6 fL 9.4-12.3 NUCLEATED RED BLOOD CELLS (BEAKER) (test 0 /100 WBC 0-0 xvsu=619) [id number] 02:04:00 Test Item Value Reference Range Comments PARTIAL THROMBOPLASTIN TIME (BEAKER) (test 60.2 seconds 22.5-36.0 zjjc=041) POCT-GLUCOSE [id number] 20:52:00 Test Item Value Reference Range Comments POC-GLUCOSE METER (BEAKER) 153 mg/dL 70-110 TESTED AT [address] (test kaik=4490) [place] [address] [id number] 18:30:00 Test Item Value Reference Range Comments PARTIAL THROMBOPLASTIN TIME (BEAKER) (test 78.9 seconds 22.5-36.0 mlhi=472) POCT-GLUCOSE [id number] 17:26:00 Test Item Value Reference Range Comments POC-GLUCOSE METER (BEAKER) 148 mg/dL 70-110 TESTED AT [address] (test mkhz=9141) [place] [address] POCT-GLUCOSE [id number] 12:32:00 Test Item Value Reference Range Comments POC-GLUCOSE METER (BEAKER) 186 mg/dL 70-110 TESTED AT [address] (test dbll=7683) [place] [address] [id number] 12:22:00 Test Item Value Reference Range Comments PARTIAL THROMBOPLASTIN TIME (BEAKER) (test 98.1 seconds 22.5-36.0 pnsw=242) POCT-GLUCOSE [id number] 08:04:00 Test Item Value Reference Range Comments POC-GLUCOSE METER (BEAKER) 139 mg/dL 70-110 TESTED AT [address] (test pdkg=3314) [place] [address] IRON, TIBC, % SAT. (WITHOUT FERRITIN)2018-03-25 05:38:00 Test Item Value Reference Range Comments IRON (BEAKER) (test vrpj=816) 29.0 ug/dL 40.0-160.0 TOTAL IRON BINDING CAPACITY (BEAKER) (test 123 ug/dL 250-450 anwl=525) IRON % SATURATION (2) (BEAKER) (test qkpu=1748) 24 % 20-55 BASIC METABOLIC [id number] 05:29:00 Test Item Value Reference Range Comments SODIUM (BEAKER) (test 128 meq/L 136-145 oyqt=574) POTASSIUM (BEAKER) (test 4.1 meq/L 3.5-5.1 lxoi=914) CHLORIDE (BEAKER) (test 98 meq/L 98-107 oddb=306) CO2 (BEAKER) (test 18 meq/L 22-29 hgeh=155) BLOOD UREA NITROGEN 57 mg/dL 7-21 (BEAKER) (test djap=782) CREATININE (BEAKER) (test 4.80 mg/dL 0.57-1.25 uvxa=427) GLUCOSE RANDOM (BEAKER) 105 mg/dL 70-105 (test knoy=885) CALCIUM (BEAKER) (test 9.5 mg/dL 8.4-10.2 arxf=873) EGFR (BEAKER) (test mL/min/1.73 sq m INSUFFICIENT CLINICAL DATA jdhr=3293) TO CALCULATE ESTIMATED GFR. Please draw today if not done already.[id number] 05:15:00 Test Item Value Reference Range Comments MAGNESIUM (BEAKER) (test ljfq=302) 1.8 mg/dL 1.6-2.6 Please draw today if not done already.[id number] 04:56:00 Test Item Value Reference Range Comments PARTIAL THROMBOPLASTIN TIME (BEAKER) (test 90.6 seconds 22.5-36.0 ossw=285) PROTHROMBIN [id number] 04:55:00 Test Item Value Reference Range Comments PROTIME (BEAKER) (test abvd=393) 15.0 seconds 11.7-14.7 INR (BEAKER) (test aywk=567) 1.1 <=5.9 RECOMMENDED COUMADIN/WARFARIN INR THERAPY RANGESSTANDARD DOSE: 2.0 - 3.0 Includes: PROPHYLAXIS forvenous thrombosis, systemic embolization; TREATMENT for venous thrombosis and/or pulmonary embolus.HIGH RISK: Target INR is 2.5-3.5 for patients with mechanical heart valves.CBC (HEMOGRAM ONLY)2018-03-25 04:50:00 Test Item Value Reference Range Comments WHITE BLOOD CELL COUNT (BEAKER) (test hced=391) 10.2 K/ L 3.5-10.5 RED BLOOD CELL COUNT (BEAKER) (test fkwp=298) 3.76 M/ L 3.93-5.22 HEMOGLOBIN (BEAKER) (test qdle=855) 10.6 GM/DL 11.2-15.7 HEMATOCRIT (BEAKER) (test ehlt=917) 33.9 % 34.1-44.9 MEAN CORPUSCULAR VOLUME (BEAKER) (test cdep=513) 90.2 fL 79.4-94.8 MEAN CORPUSCULAR HEMOGLOBIN (BEAKER) (test 28.2 pg 25.6-32.2 xgjd=273) MEAN CORPUSCULAR HEMOGLOBIN CONC (BEAKER) (test 31.3 GM/DL 32.2-35.5 gyyv=595) RED CELL DISTRIBUTION WIDTH (BEAKER) (test 17.9 % 11.7-14.4 nkyg=118) PLATELET COUNT (BEAKER) (test enic=305) 389 K/CU MM 150-450 MEAN PLATELET VOLUME (BEAKER) (test vjhd=155) 9.9 fL 9.4-12.3 NUCLEATED RED BLOOD CELLS (BEAKER) (test 0 /100 WBC 0-0 edzt=583) [id number] 22:51:00 Test Item Value Reference Range Comments PARTIAL THROMBOPLASTIN TIME (BEAKER) (test 58.5 seconds 22.5-36.0 yciv=856) POCT-GLUCOSE [id number] 21:34:00 Test Item Value Reference Range Comments POC-GLUCOSE METER (BEAKER) 191 mg/dL 70-110 TESTED AT [address] (test xnao=0481) [place] [id number] POCT-GLUCOSE [id number] 17:43:00 Test Item Value Reference Range Comments POC-GLUCOSE METER (BEAKER) 171 mg/dL 70-110 TESTED AT [address] (test wbdg=2590) [place] [address] [id number] 13:32:00 Test Item Value Reference Range Comments PARTIAL THROMBOPLASTIN TIME (BEAKER) (test 63.7 seconds 22.5-36.0 rjml=872) POCT-GLUCOSE [id number] 12:45:00 Test Item Value Reference Range Comments POC-GLUCOSE METER (BEAKER) 81 mg/dL 70-110 TESTED AT [address] (test oesu=5175) [place] [id number] POCT-GLUCOSE [id number] 07:44:00 Test Item Value Reference Range Comments POC-GLUCOSE METER (BEAKER) 128 mg/dL 70-[address] [facility] [address] (test gosf=5429) [place] [address] CBC W/PLT COUNT & AUTO [id number] 07:43:00 Test Item Value Reference Range Comments WHITE BLOOD CELL COUNT (BEAKER) (test xceq=940) 10.9 K/ L 3.5-10.5 RED BLOOD CELL COUNT (BEAKER) (test zmra=981) 3.53 M/ L 3.93-5.22 HEMOGLOBIN (BEAKER) (test qdtg=929) 9.9 GM/DL 11.2-15.7 HEMATOCRIT (BEAKER) (test zdhr=459) 31.7 % 34.1-44.9 MEAN CORPUSCULAR VOLUME (BEAKER) (test uyms=427) 89.8 fL 79.4-94.8 MEAN CORPUSCULAR HEMOGLOBIN (BEAKER) (test 28.0 pg 25.6-32.2 txws=238) MEAN CORPUSCULAR HEMOGLOBIN CONC (BEAKER) (test 31.2 GM/DL 32.2-35.5 erri=415) RED CELL DISTRIBUTION WIDTH (BEAKER) (test 17.8 % 11.7-14.4 fewb=889) PLATELET COUNT (BEAKER) (test tkbz=156) 365 K/CU MM 150-450 MEAN PLATELET VOLUME (BEAKER) (test anno=566) 10.4 fL 9.4-12.3 NUCLEATED RED BLOOD CELLS (BEAKER) (test 0 /100 WBC 0-0 gifq=623) NEUTROPHILS RELATIVE PERCENT (BEAKER) (test 75 % qury=233) LYMPHOCYTES RELATIVE PERCENT (BEAKER) (test 12 % upcz=299) MONOCYTES RELATIVE PERCENT (BEAKER) (test 9 % gapi=283) EOSINOPHILS RELATIVE PERCENT (BEAKER) (test 3 % bwwd=558) BASOPHILS RELATIVE PERCENT (BEAKER) (test 0 % zhsl=553) NEUTROPHILS ABSOLUTE COUNT (BEAKER) (test 8.15 K/ L 1.56-6.13 riwo=662) LYMPHOCYTES ABSOLUTE COUNT (BEAKER) (test 1.32 K/ L 1.18-3.74 rgcz=499) MONOCYTES ABSOLUTE COUNT (BEAKER) (test 0.94 K/ L 0.24-0.36 cfng=735) EOSINOPHILS ABSOLUTE COUNT (BEAKER) (test 0.32 K/ L 0.04-0.36 oeam=419) BASOPHILS ABSOLUTE COUNT (BEAKER) (test 0.04 K/ L 0.01-0.08 hikl=372) IMMATURE GRANULOCYTES-RELATIVE PERCENT (BEAKER) 1 % 0-1 (test zyag=2565) COMPREHENSIVE METABOLIC [id number] 06:39:00 Test Item Value Reference Range Comments TOTAL PROTEIN (BEAKER) 6.4 gm/dL 6.0-8.3 (test tbuo=762) ALBUMIN (BEAKER) (test 2.8 g/dL 3.5-5.0 ysge=6932) ALKALINE PHOSPHATASE 108 U/L 40-150 (BEAKER) (test ixwo=135) BILIRUBIN TOTAL (BEAKER) 0.4 mg/dL 0.2-1.2 (test qvai=298) SODIUM (BEAKER) (test 129 meq/L 136-145 cifd=512) POTASSIUM (BEAKER) (test 3.3 meq/L 3.5-5.1 huyw=961) CHLORIDE (BEAKER) (test 99 meq/L 98-107 ndnv=799) CO2 (BEAKER) (test 21 meq/L 22-29 vreh=564) BLOOD UREA NITROGEN 47 mg/dL 7-21 (BEAKER) (test okzg=190) CREATININE (BEAKER) (test 3.80 mg/dL 0.57-1.25 qslq=643) GLUCOSE RANDOM (BEAKER) 103 mg/dL 70-105 (test dbkp=940) CALCIUM (BEAKER) (test 9.6 mg/dL 8.4-10.2 ttnm=271) AST (SGOT) (BEAKER) (test 46 U/L 5-34 zriu=210) ALT (SGPT) (BEAKER) (test 49 U/L 6-55 yfzn=624) EGFR (BEAKER) (test mL/min/1.73 sq m INSUFFICIENT CLINICAL DATA nsyn=9465) TO CALCULATE ESTIMATED GFR. [id number] 06:31:00 Test Item Value Reference Range Comments PHOSPHORUS (BEAKER) (test dwxw=367) 3.2 mg/dL 2.3-4.7 [id number] 06:31:00 Test Item Value Reference Range Comments MAGNESIUM (BEAKER) (test atty=399) 1.7 mg/dL 1.6-2.6 PROTHROMBIN [id number] 06:12:00 Test Item Value Reference Range Comments PROTIME (BEAKER) (test vunx=885) 16.3 seconds 11.7-14.7 INR (BEAKER) (test potd=875) 1.3 <=5.9 RECOMMENDED COUMADIN/WARFARIN INR THERAPY RANGESSTANDARD DOSE: 2.0 - 3.0 Includes: PROPHYLAXIS forvenous thrombosis, systemic embolization; TREATMENT for venous thrombosis and/or pulmonary embolus.HIGH RISK: Target INR is 2.5-3.5 for patients with mechanical heart valves.[id number] 06:12:00 Test Item Value Reference Range Comments PARTIAL THROMBOPLASTIN TIME (BEAKER) (test 92.6 seconds 22.5-36.0 rjqu=950) CBC (HEMOGRAM ONLY)2018-03-24 05:58:00 Test Item Value Reference Range Comments WHITE BLOOD CELL COUNT (BEAKER) (test epig=822) 10.9 K/ L 3.5-10.5 RED BLOOD CELL COUNT (BEAKER) (test qjxw=445) 3.53 M/ L 3.93-5.22 HEMOGLOBIN (BEAKER) (test yweu=141) 9.9 GM/DL 11.2-15.7 HEMATOCRIT (BEAKER) (test uaab=934) 31.7 % 34.1-44.9 MEAN CORPUSCULAR VOLUME (BEAKER) (test qarn=678) 89.8 fL 79.4-94.8 MEAN CORPUSCULAR HEMOGLOBIN (BEAKER) (test 28.0 pg 25.6-32.2 qenc=071) MEAN CORPUSCULAR HEMOGLOBIN CONC (BEAKER) (test 31.2 GM/DL 32.2-35.5 xydn=471) RED CELL DISTRIBUTION WIDTH (BEAKER) (test 17.8 % 11.7-14.4 ufip=931) PLATELET COUNT (BEAKER) (test zgfs=892) 365 K/CU MM 150-450 MEAN PLATELET VOLUME (BEAKER) (test izfc=970) 10.4 fL 9.4-12.3 NUCLEATED RED BLOOD CELLS (BEAKER) (test 0 /100 WBC 0-0 sfht=251) POCT-GLUCOSE [id number] 22:41:00 Test Item Value Reference Range Comments POC-GLUCOSE METER ([email or web address]) 171 mg/dL 70-[address] [facility] [address] (test nknv=2785) [facility] [address] TROPONIN [id number] 21:23:00 Test Item Value Reference Range Comments TROPONIN I (BEAKER) (test wzxs=504) 1.89 ng/mL 0.00-0.03 Troponin I (TnI) levels [...] Value Reference Range Comments B-TYPE NATRIURETIC PEPTIDE ([employer]) (test 2021 pg/mL 0-100 drwd=611) LIPID [id number] 21:09:00 Test Item Value Reference Range Comments TRIGLYCERIDES (BEAKER) (test ifsl=974) 132 mg/dL CHOLESTEROL (BEAKER) (test jibq=281) 103 mg/dL HDL CHOLESTEROL (BEAKER) (test tobi=747) 24 mg/dL LDL CHOLESTEROL CALCULATED ([employer]) (test 53 mg/dL rkst=513) Triglyceride Reference Range: Low Risk <150 Borderline 150- 199 High Risk 200-499 Very High Risk >=500Cholesterol Reference Range: Low Risk <200 Borderline 200-239 High Risk > 240HDL Cholesterol Reference Range: Low Risk >=60 High Risk <40LDL Cholesterol Reference Range: Optimal <100 Near Optimal 100-129 Borderline 130-159 High 160-189 Very High >=190 [id number] 21:08:00 Test Item Value Reference Range Comments PARTIAL THROMBOPLASTIN TIME (BEAKER) (test 107.2 seconds 22.5-36.0 yjms=156) Prior to initiating heparinPLATELET [id number] 20:54:00 Test Item Value Reference Range Comments PLATELET COUNT ([employer]) (test ptex=686) 364 K/CU MM 150-450
--- NOTE | 2018-05-08 17:38 | EDPHYS ---
Physician Documentation [facility] Name: Dianelys Carroll Age: 82 yrs Sex: Female : 1935 Arrival Date: 05/08/2018 Time: 16:38 Bed 14 Private MD: ED Physician Pop Howard HPI: 05/08 17:27 This 82 yrs old Female presents to ER via EMS with complaints of pain and rn gangrene of left foot. 17:27 the patient presents with a swollen area of the left foot. Description: erythematous, rn swollen, warm. Onset: The symptoms/episode began/occurred at an unknown time. Associated signs and symptoms: Pertinent positives: erythema, swelling. Severity of symptoms: At their worst the symptoms were mild, in the emergency department the symptoms are unchanged. The patient has experienced similar episodes in the past. The patient has been recently seen by a physician:. Sent by Dr. Rondon for gangrene of foot, has been chronic, but acutely worse, Hakeem Rondon tried to admit to Dr. Lema but out of town, he wants patient admitted to hospitalist and he will consult. . Historical: - Allergies: 17:13 clopidogrel bisulfate; ph 17:13 Codeine; ph 17:13 enalapril maleate; ph 17:13 enalaprilat dihydrate; ph 17:13 OPIATES; ph 17:13 Simvastatin; ph 17:13 altase; ph 17:13 Demerol; ph 17:13 HYDROCODONE; ph 17:13 Ibuprofen; ph 17:13 Morphine; ph 17:13 propoxyphene napsylate; ph 17:13 Ramipril; ph 17:13 Vioxx; ph - Home Meds: 19:42 Ranexa 500 mg Oral Tb12 1 tab 2 times per day [Active]; aspirin 81 mg Oral TbEC 1 tab ph once daily [Active]; citalopram 20 mg CERP 1 tab once daily for Anxiety with Depression [Active]; metoprolol tartrate 25 mg Oral tab 1 tab 2 times per day [Active]; gabapentin 300 mg Oral cap 1 cap 3 times per day [Active]; Ativan 0.5 mg oral tab 1 tab q2h [Active]; Effient 10 mg Oral CERP 1 tab once daily [Active]; atorvastatin 40 mg Oral tab nightly [Active]; latanoprost 0.005 % ophthalmic drop 1 drop nightly [Active]; lisinopril 20 mg Oral CERP 1 tab once daily [Active]; clonidine HCl 0.1 mg Oral CERP 1 tab 2 times per day for Hypertension [Active]; Dilaudid 2mg/mL oral liqd 1 mL every 4 hours [Active]; Benadryl 25 mg Oral cap 1 cap every 4 hours [Active]; hyoscyamine sulfate 0.125 mg SL subl [Active]; promethazine 25 mg Oral tab 1 tab every 4 hours [Active]; Zofran (as hydrochloride) 4 mg Oral tab every 8 hours [Active]; - PMHx: 17:13 Anemia; Anxiety; candidiasis; chronic pulmonary edema; Dementia; Depression; Dialysis; ph Diabetes - IDDM; DYSPHAGIA; ESRD; Glaucoma; Hallucinations; Hyperlipidemia; Hypertension; Hypomagnesemia; Myocardial infarction; Pacemaker; TIA; - PSHx: 17:13 L BKA; cardiac stents; renal stent; Bladder suspension; ph - Immunization history:: Adult Immunizations up to date. - Family history:: not pertinent. - Social history:: Smoking status: Patient/guardian denies using tobacco. - Ebola Screening: : No symptoms or risks identified at this time. - Hospitalizations: : No recent hospitalization is reported. ROS: 17:27 Constitutional: Negative for fever, chills, and weight loss, Eyes: Negative for injury, rn pain, redness, and discharge, Neck: Negative for injury, pain, and swelling, Cardiovascular: Negative for chest pain, palpitations, and edema, Respiratory: Negative for shortness of breath, cough, wheezing, and pleuritic chest pain, Abdomen/GI: Negative for abdominal pain, nausea, vomiting, diarrhea, and constipation, MS/Extremity: Negative for injury and deformity, Skin: + discoloration of right foot Neuro: Negative for headache, weakness, numbness, tingling, and seizure. Exam: 17:27 Constitutional: This is a well developed, well nourished patient who is awake, alert, rn and in no acute distress. MS/ Extremity: Poor peripheral circulation with gangrene, mixed wet/dry, of right 1st/2nd toes with erythema of dorsum of right foot. No streaking. Vital Signs: 17:13 BP 135 / 46; Pulse 60; Resp 18; Temp 98.4; Pulse Ox 98% on R/A; Weight 54.43 kg; ph 18:30 BP 127 / 61; Pulse 64; Resp 18; Pulse Ox 97% on R/A; Pain 5/10; ph 19:15 BP 113 / 54; Pulse 60; Resp 18 S; Temp 98.8(O); Pulse Ox 97% on R/A; cc3 20:30 BP 119 / 92; Pulse 63; Resp 18 S; Pulse Ox 96% on R/A; cc3 21:55 BP 106 / 55; Pulse 63; Resp 18 S; Pulse Ox 95% on R/A; cc3 MDM: 16:39 Patient medically screened. rn 17:27 Differential diagnosis: cellulitis. Data reviewed: vital signs, nurses notes, and as a rn result, I will admit patient. Counseling: I had a detailed discussion with the patient and/or guardian regarding: the historical points, exam findings, and any diagnostic results supporting the discharge/admit diagnosis, the need for further work-up and treatment in the hospital. Admission orders: after a detailed discussion of the patient's condition and case, the admit orders are written by me. ED course: Pt admitted to Dr. Garcia. . 05/08 16:39 Order name: CBC with Diff; Complete Time: 18:14 05/08 16:39 Order name: Basic Metabolic Panel; Complete Time: 18:14 05/08 16:39 Order name: Blood Culture Adult (2) 05/08 16:39 Order name: Procalcitonin 05/08 18:41 Order name: C-Reactive Protein [facility] 05/08 18:44 Order name: Wound Culture [facility] 05/08 16:39 Order name: IV Start; Complete Time: 18:57 05/08 17:25 Order name: Foot Right 3 View; Complete Time: 18:14 [facility] 05/08 18:41 Order name: [facility] Cons [facility] 05/08 18:41 Order name: CONS Physician Consult EDMD Administered Medications: 19:15 Drug: Zosyn 3.375 grams Route: IVPB; Infused Over: 60 mins; Site: right antecubital; ph 19:55 Follow up: Response: No adverse reaction; IV Status: Completed infusion; IV Intake: cc3 100ml 19:45 Drug: vancoMYCIN 1 grams Route: IVPB; Infused Over: 2 hrs; Site: right antecubital; cc3 21:50 Follow up: Response: No adverse reaction; IV Status: Completed infusion; IV Intake: cc3 250ml Disposition: 05/08/18 17:37 Hospitalization ordered by Renata Garcia for Inpatient Admission. Preliminary diagnosis is Gangrene, not elsewhere classified. - Bed requested for Telemetry/MedSurg (Inpatient). - Status is Inpatient Admission. cc3 - Condition is Stable. - Problem is an ongoing problem. - Symptoms are unchanged. UTI on Admission? No Signatures: Dispatcher [employer] EDMD Pop Howard MD MD rn Hall, JOSE Lowry RN Kelin Rowley RN RN Laurita Pate cc3 Corrections: (The following items were deleted from the chart) 17:25 16:42 Foot Left 3 View+RAD.RAD.BRZ ordered. [facility] 20:07 17:37 Hospitalization Ordered by Renata Garcia MD for Inpatient Admission. Preliminary cg diagnosis is Gangrene, not elsewhere classified. Bed requested for Telemetry/MedSurg (Inpatient). Status is Inpatient Admission. Condition is Stable. Problem is an ongoing problem. Symptoms are unchanged. UTI on Admission? No. rn 22:08 20:07 05/08/2018 17:37 Hospitalization Ordered by Renata Garcia MD for Inpatient cc3 Admission. Preliminary diagnosis is Gangrene, not elsewhere classified. Bed requested for Telemetry/MedSurg (Inpatient). Status is Inpatient Admission. Condition is Stable. Problem is an ongoing problem. Symptoms are unchanged. UTI on Admission? No. cg
--- NOTE | 2018-05-08 17:38 | ER ---
Nurse's Notes [facility] Name: Dianelys Carroll Age: 82 yrs Sex: Female : 1935 Arrival Date: 05/08/2018 Time: 16:38 Bed 14 Private MD: Diagnosis: Gangrene, not elsewhere classified Presentation: 05/08 16:58 Presenting complaint: EMS states: Pt sent by Dr Rondon to be admitted for gangrenous ph R toes, pt denies fever chills , N/V, from [facility]. Transition of care: patient was not received from another setting of care. Onset of symptoms was May 08, 2018. Risk Assessment: Do you want to hurt yourself or someone else? Patient reports no desire to harm self or others. Initial Sepsis Screen: Does the patient meet any 2 criteria? No. Patient's initial sepsis screen is negative. Does the patient have a suspected source of infection? No. Patient's initial sepsis screen is negative. Care prior to arrival: None. 16:58 Method Of Arrival: EMS: [facility] ph 16:58 Acuity: EFRAÍN 3 ph Historical: - Allergies: 17:13 clopidogrel bisulfate; ph 17:13 Codeine; ph 17:13 enalapril maleate; ph 17:13 enalaprilat dihydrate; ph 17:13 OPIATES; ph 17:13 Simvastatin; ph 17:13 altase; ph 17:13 Demerol; ph 17:13 HYDROCODONE; ph 17:13 Ibuprofen; ph 17:13 Morphine; ph 17:13 propoxyphene napsylate; ph 17:13 Ramipril; ph 17:13 Vioxx; ph - Home Meds: 19:42 Ranexa 500 mg Oral Tb12 1 tab 2 times per day [Active]; aspirin 81 mg Oral TbEC 1 tab ph once daily [Active]; citalopram 20 mg CERP 1 tab once daily for Anxiety with Depression [Active]; metoprolol tartrate 25 mg Oral tab 1 tab 2 times per day [Active]; gabapentin 300 mg Oral cap 1 cap 3 times per day [Active]; Ativan 0.5 mg oral tab 1 tab q2h [Active]; Effient 10 mg Oral CERP 1 tab once daily [Active]; atorvastatin 40 mg Oral tab nightly [Active]; latanoprost 0.005 % ophthalmic drop 1 drop nightly [Active]; lisinopril 20 mg Oral CERP 1 tab once daily [Active]; clonidine HCl 0.1 mg Oral CERP 1 tab 2 times per day for Hypertension [Active]; Dilaudid 2mg/mL oral liqd 1 mL every 4 hours [Active]; Benadryl 25 mg Oral cap 1 cap every 4 hours [Active]; hyoscyamine sulfate 0.125 mg SL subl [Active]; promethazine 25 mg Oral tab 1 tab every 4 hours [Active]; Zofran (as hydrochloride) 4 mg Oral tab every 8 hours [Active]; - PMHx: 17:13 Anemia; Anxiety; candidiasis; chronic pulmonary edema; Dementia; Depression; Dialysis; ph Diabetes - IDDM; DYSPHAGIA; ESRD; Glaucoma; Hallucinations; Hyperlipidemia; Hypertension; Hypomagnesemia; Myocardial infarction; Pacemaker; TIA; - PSHx: 17:13 L BKA; cardiac stents; renal stent; Bladder suspension; ph - Immunization history:: Adult Immunizations up to date. - Family history:: not pertinent. - Social history:: Smoking status: Patient/guardian denies using tobacco. - Ebola Screening: : No symptoms or risks identified at this time. - Hospitalizations: : No recent hospitalization is reported. Screenin:26 Abuse screen: Denies threats or abuse. Denies injuries from another. Nutritional ph screening: No deficits noted. Tuberculosis screening: No symptoms or risk factors identified. Fall Risk No fall in past 12 months (0 pts). Secondary diagnosis (15 points) impaired mobility, IV access (20 points). Ambulatory Aid- Crutches/Cane/Walker (15 pts). Gait- Impaired (20 pts.). Mental Status- Oriented to own ability (0 pts). Total Mcintosh Fall Scale indicates High Risk Score (45 or more points). Fall prevention measures have been instituted. Side Rails Up X 2 Placed Close to Nursing Station Frequent Obs/Assessments Occuring Family Present and informed to notify staff if the need to leave the bedside As available patient and family educated on Fall Prevention Program and Strategies. Assessment: 17:30 General: Appears in no apparent distress. comfortable, well groomed, Behavior is calm, ph cooperative, appropriate for age, Denies fever, chills. Pain: Complains of pain in right foot. Neuro: Level of Consciousness is awake, alert, obeys commands, Oriented to person, place, time, situation. Cardiovascular: Capillary refill < 3 seconds in bilateral fingers Patient's skin is warm and dry. Pulses are palpable in right dorsalis pedis artery. Respiratory: Airway is patent Respiratory effort is even, unlabored. GI: No signs and/or symptoms were reported involving the gastrointestinal system. Patient currently denies nausea, vomiting. Derm: Skin is fragile, is thin, Skin is pink, warm \T\ dry. Wound noted plantar aspect of right first toe, plantar aspect of right second toe, plantar aspect of right third toe, right first toe, right second toe, right third toe, Right first toenail, Right second toenail and Right third toenail Wound is toes blackened in appearance w/ foul odor, no drainage noted, redness also noted to top of R foot. Musculoskeletal: Amputation of BKA Circulation, motion, and sensation intact. Range of motion: intact in all extremities. 18:30 Reassessment: Patient appears in no apparent distress at this time. Patient and/or ph family updated on plan of care and expected duration. Pain level reassessed. Patient is alert, oriented x 3, equal unlabored respirations, skin warm/dry/pink. Pt resting quietly, awaiting room assignment, daughter at bedside. 19:15 Reassessment: Patient appears in no apparent distress at this time. Patient and/or cc3 family updated on plan of care and expected duration. Pain level reassessed. Patient is alert, oriented x 3, equal unlabored respirations, skin warm/dry/pink. Received this female patient from morning shift JOSE Lowry as a case of gangrene on the right 1st and 2nd toenails, for admission awaiting room availability. With IV cannula gauge 20 at the right ACV with ongoing Zosyn 3.375 grams infusing well. With left arm graft not working as per the patient, with working left upper chest graft being used for hemodialysis every Sunday, and Sunday. Noted to have left below knee amputation and 2nd degree left gluteal sore with redness and rashes all over her bilateral gluteal area. 20:22 Reassessment: Patient appears in no apparent distress at this time. Patient and/or cc3 family updated on plan of care and expected duration. Pain level reassessed. Patient is alert, oriented x 3, equal unlabored respirations, skin warm/dry/pink. 21:10 Reassessment: Patient appears in no apparent distress at this time. Patient and/or cc3 family updated on plan of care and expected duration. Pain level reassessed. Patient is alert, oriented x 3, equal unlabored respirations, skin warm/dry/pink. Room available in 416, called telemetry unit but was told that they will still have to find who will receive the patient and that the receiving nurse will just call me back, charge nurse Pricilla informed. 21:50 Reassessment: Patient appears in no apparent distress at this time. Patient and/or cc3 family updated on plan of care and expected duration. Pain level reassessed. Patient is alert, oriented x 3, equal unlabored respirations, skin warm/dry/pink. RN Grace Lawrence called and report handed over for continuity of care and management. 22:08 Reassessment: Patient appears in no apparent distress at this time. Patient and/or cc3 family updated on plan of care and expected duration. Pain level reassessed. Patient is alert, oriented x 3, equal unlabored respirations, skin warm/dry/pink. Patient left ER for admission vitally stable by stretcher escorted by splicing technician Reinaldo. Vital Signs: 17:13 BP 135 / 46; Pulse 60; Resp 18; Temp 98.4; Pulse Ox 98% on R/A; Weight 54.43 kg; ph 18:30 BP 127 / 61; Pulse 64; Resp 18; Pulse Ox 97% on R/A; Pain 5/10; ph 19:15 BP 113 / 54; Pulse 60; Resp 18 S; Temp 98.8(O); Pulse Ox 97% on R/A; cc3 20:30 BP 119 / 92; Pulse 63; Resp 18 S; Pulse Ox 96% on R/A; cc3 21:55 BP 106 / 55; Pulse 63; Resp 18 S; Pulse Ox 95% on R/A; cc3 ED Course: 16:38 Patient arrived in ED. rn 16:39 Pop Howard MD is Attending Physician. rn 16:53 Essence Tolbert, RN is Primary Nurse. ph 17:04 Triage completed. ph 17:14 Arm band placed on. ph 17:25 X-ray completed. Portable x-ray completed in exam room. Patient tolerated procedure ka poorly. 17:27 Foot Right 3 View In Process Unspecified. EDMS 17:36 Renata Garcia MD is Hospitalizing Provider. rn 17:40 Inserted saline lock: 20 gauge in right antecubital area, using aseptic technique. rv Blood collected. 17:40 First set of blood cultures drawn by me. rv 19:27 Patient has correct armband on for positive identification. Placed in gown. Bed in low ph position. Call light in reach. Side rails up X2. management liaison on. Pulse ox on. NIBP on. Door closed. Noise minimized. Warm blanket given. Pillow given. 21:50 No provider procedures requiring assistance completed. Patient admitted, IV remains in cc3 place. Administered Medications: 19:15 Drug: Zosyn 3.375 grams Route: IVPB; Infused Over: 60 mins; Site: right antecubital; ph 19:55 Follow up: Response: No adverse reaction; IV Status: Completed infusion; IV Intake: cc3 100ml 19:45 Drug: vancoMYCIN 1 grams Route: IVPB; Infused Over: 2 hrs; Site: right antecubital; cc3 21:50 Follow up: Response: No adverse reaction; IV Status: Completed infusion; IV Intake: cc3 250ml Intake: 19:55 IV: 100ml; Total: 100ml. cc3 21:50 IV: 250ml; Total: 350ml. cc3 Outcome: 17:37 Decision to Hospitalize by Provider. rn 21:50 Admitted to Tele accompanied by tech, family with patient, via stretcher, room 416, cc3 with chart, Report called to Grace Lawrence 21:50 Condition: stable 21:50 Instructed on the need for admit, Demonstrated understanding of instructions. 22:08 Patient left the ED. cc3 Signatures: Dispatcher [employer] EDMS Pop Howard MD MD rn Hall, Patricia, RN RN Faye Pereira Ronaldo, RN RN Laurita Pate cc3
[2018-05-08 17:53] LABS: Absolute Lymphocytes (CBC) 1.2 K/uL (0.7-4.9); Absolute Monocytes 0.9 K/uL (0.1-1.3); Absolute Neutrophil 10.7 K/uL (1.8-8.0); Basophils % 0.7 % (0-1.3); Eosinophils % 5.7 % (0-4.4); Hematocrit 39.1 % (36.0-45.0); Lymphocytes % 8.4 % (15.3-44.8); MPV 8.8 fL (7.6-11.3); Monocytes % 6.8 % (3.3-12.3); RBC Red Blood Cell Count 4.46 M/uL (3.86-4.86)
[2018-05-08] MEDS ORDERED: PIPER/TAZO/NS 3.375gm 3.375 GM/100 ML BAG ONE (17:57)
[2018-05-08] MEDS ORDERED: VANCOMYCIN 1 GM/250 ML BAG ONE (17:57)
--- NOTE | 2018-05-08 17:58 | RAD REPORT ---
EXAM DESCRIPTION: RAD - Foot Right 3 View - 05/08/2018 5:27 pm CLINICAL HISTORY: PAIN COMPARISON: Foot Right 2 View dated 01/15/2018; Foot Right 2 View dated 06/26/2017 FINDINGS: Very advanced osteopenia is seen which limits bony evaluation. Prominent calcaneal spurs a re noted. Vascular calcification is seen. No acute fracture or dislocation. Although bone assessment is limited due to osteopenia, within this limitation, no definitive evidence of osteomyelitis seen.
[2018-05-08 18:13] LABS: Potassium 3.9 mmol/L (3.5-5.1)
[2018-05-08] MEDS ORDERED: PROMETHAZINE 25 MG TABLET PO PRN (18:38)
[2018-05-08] MEDS ORDERED: ONDANSETRON 4 MG/2 ML VIAL IV PRN (18:38)
[2018-05-08] MEDS ORDERED: D50W 25 GM/50 ML SYRINGE IV PRN (18:47)
[2018-05-08] MEDS ORDERED: GLUCAGON 1 MG/VIAL IM PRN (18:47)
[2018-05-08] MEDS: VANCOMYCIN 1.25 GM in NA CHLORIDE 0.9% 250 ML IVPB SCH (21:00)
[2018-05-08] MEDS ORDERED: HYDROCODONE/APAP 10/325 TAB PO PRN (22:50)
[2018-05-08] MEDS: ENOXAPARIN 40 MG/0.4 ML SQ SCH (23:06)
[2018-05-08] MEDS: INSULIN -REGULAR HUMAN 50 UNIT/0.5 ML ML SQ SCH (23:07)
[2018-05-08] MEDS ORDERED: PIPER/TAZO/NS 2.25gm 2.25 GM/50 ML BAG ONE (23:52)
[2018-05-08] MEDS: TRAMADOL HCL 50 MG TAB PO PRN (23:59)
[2018-05-09] MEDS: HYDROMORPHONE HCL 1 MG/ML INJ IV PRN ×3 (02:41→22:07)
[2018-05-09 04:27] LABS: Absolute Lymphocytes (CBC) 0.9 K/uL (0.7-4.9); Absolute Monocytes 0.9 K/uL (0.1-1.3); Absolute Neutrophil 10.9 K/uL (1.8-8.0); Basophils % 0.4 % (0-1.3); Eosinophils % 5.6 % (0-4.4); Hematocrit 34.4 % (36.0-45.0); Lymphocytes % 6.9 % (15.3-44.8); MPV 8.6 fL (7.6-11.3); Monocytes % 6.9 % (3.3-12.3); RBC Red Blood Cell Count 3.88 M/uL (3.86-4.86)
[2018-05-09 04:47] LABS: Albumin 2.4 g/dL (3.4-5.0); Bilirubin Total 0.5 mg/dL (0.2-1.0); Potassium 3.9 mmol/L (3.5-5.1); Protein, Total 6.5 g/dL (6.4-8.2)
[2018-05-09] MEDS: PIPER/TAZO/NS 2.25gm 2.25 GM/50 ML BAG IVPB SCH ×5 (06:00→23:11)
[2018-05-09 06:12] LABS: Magnesium 1.9 mg/dL (1.8-2.4); Phosphorus 2.8 mg/dL (2.5-4.9)
[2018-05-09] MEDS: INSULIN -REGULAR HUMAN 50 UNIT/0.5 ML ML SQ SCH ×4 (07:30→21:00)
[2018-05-09] MEDS ORDERED: POTASSIUM CL SA 10 MEQ TAB PO ONE (08:00)
[2018-05-09] MEDS ORDERED: KCL 20 MEQ/100 mL IVPB 20 MEQ/100 ML BAG IV SCH (08:00)
[2018-05-09] MEDS: ENOXAPARIN 40 MG/0.4 ML SQ SCH ×2 (09:00→09:39)
[2018-05-09] MEDS: VANCOMYCIN 1.25 GM in NA CHLORIDE 0.9% 250 ML IVPB SCH (09:40)
[2018-05-09] MEDS ORDERED: VANCOMYCIN 500 MG in NA CHLORIDE 0.9% 100 ML IVPB SCH (14:30)
--- NOTE | 2018-05-09 14:51 | P.PN ---
Subjective Date of Service: 05/09/18 Pt seen and examined at bedside. Chart Reviewed. Case DW general Surgery and Nephrology. pt to be kept NPO overnight for surgical procedure. No other c/o offer. Review of Systems 10-point ROS is otherwise unremarkable Physical Examination - Vital Signs Temperature: 97.6 F Blood Pressure: 100/46 Pulse: 68 Respirations: 16 Pulse Ox (%): 98 - Physical Exam General: Alert, In no apparent distress HEENT: Atraumatic, PERRLA, EOMI Neck: Supple, JVD not distended Respiratory: Clear to auscultation bilaterally, Normal air movement Cardiovascular: Regular rate/rhythm, Normal S1 S2 Gastrointestinal: Normal bowel sounds, No tenderness Musculoskeletal: Other (left BKA and right foot gangrene noted. ) Integumentary: No rashes Neurological: Normal speech, Normal tone, Normal affect Lymphatics: No axilla or inguinal lymphadenopathy - Studies Laboratory Data (last 24 hrs) 05/08/18 17:40: Sodium 132 L, Potassium 3.9, BUN 50 H, Creatinine 4.33 H, Glucose 171 H 05/08/18 17:40: WBC 13.7 H, Hgb 12.4, Hct 39.1, Plt Count 362 Microbiology Data (last 24 hrs): 05/08/18 18:00 Blood - Blood Anaerobic Blood Culture - Final Medications List Reviewed: Yes Assessment And Plan - Current Problems (Diagnosis) (1) Gangrene of right foot Current Visit: Yes Status: Acute Plan: acute wrosening of the Chronic Gangrene to the right foot 2.2 to Uncontrolled Diabetes -general Surgery Consulted. awaiting reccs -Foot xray negative for osteomylitis -Unable to get MRI due to Pacemaker -US venous and arterial Ordered -IV abx for now -NPO after midnight for possible Surgical procedure -Wound cutlure and blood culture pending (2) Carotid arterial disease Current Visit: No Status: Chronic Qualifiers: Carotid artery disease type: unspecified Laterality: bilateral Qualified Code(s): I77.9 - Disorder of arteries and arterioles, unspecified (3) Depression Current Visit: No Status: Chronic Qualifiers: (4) Diabetes mellitus Onset Date: 06/28/17 Current Visit: No Status: Chronic Qualifiers: Diabetes mellitus type: type 2 Diabetes mellitus group home insulin use: with group home use Diabetes mellitus complication status: with circulatory complication Diabetes mellitus complication detail: with peripheral angiopathy with gangrene Qualified Code(s): E11.52 - Type 2 diabetes mellitus with diabetic peripheral angiopathy with gangrene; Z79.4 - FDC (current) use of insulin (5) ESRD on hemodialysis Onset Date: 06/28/17 Current Visit: No Status: Chronic (6) Hypertension Onset Date: 06/28/17 Current Visit: No Status: Chronic Qualifiers: Hypertension type: essential hypertension (7) PVD (peripheral vascular disease) Onset Date: 06/28/17 Current Visit: No Status: Chronic (8) Seizure disorder Onset Date: 05/20/15 Current Visit: No Status: Chronic - Plan Pending Clinical Improvement. Awaiting Reccs from Surgery for possible procedure. Discharge Plan: Home Plan to discharge in: 48 Hours - Code Status/Comfort Care Code Status Assessed: Yes Critical Care: No
--- NOTE | 2018-05-09 15:20 | RAD REPORT ---
EXAM DESCRIPTION: US - Lower Extremity Artery Uni Ltd - 05/09/2018 2:54 pm CLINICAL HISTORY: Leg pain COMPARISON: None. TECHNIQUE: Doppler evaluation of the right lower extremity arterial tree performed. Waveforms and ve locity values were obtained along with visual inspection. FINDINGS: Right common femoral artery peak systolic velocity was 112 cm/second with superficial femo ral velocities ranging from 70-103 cm/second. Popliteal artery was 68 cm/second with posterior tibial artery 19 cm/second and the dorsalis pedis artery 37 cm/second. Prominent arterial tree calcifications are present. No occlusion or 1 focal flow restricting lesion i dentifiable. Common femoral artery waveform was biphasic with the superficial femoral and popliteal a rtery is also biphasic. Monophasic waveform seen at the ankle. IMPRESSION: Moderate severity right lower extremity peripheral arterial disease with no occlusion or focal flow restricting lesion.
--- NOTE | 2018-05-09 15:20 | RAD REPORT ---
EXAM DESCRIPTION: US - Extremity Venous Uni Ltd - 05/09/2018 2:55 pm CLINICAL HISTORY: Leg pain and swelling COMPARISON: None. TECHNIQUE: Real-time sonographic evaluation of the right lower extremity deep venous systems was per formed. FINDINGS: Normal compressibility, flow augmentation, phasic flow and spontaneous flow are identified in the right lower extremity common femoral, superficial femoral, popliteal and posterior tibial vei ns. No intraluminal filling defects seen. IMPRESSION: No DVT in the right lower extremity.
--- NOTE | 2018-05-09 16:59 | CON ---
Date of Consultation: 05/09/2018 NEPHROLOGY CONSULTATION Additional Consulting Physician: Dr. Garcia. Reason For Consultation: Elevated BUN and creatinine, fluid management, end-stage renal disease, hyp ertension. History Of Present Illness: This is a pleasant 82-year-old female, well known to me from the dialysi s with significant past medical history of hypertension, hyperlipidemia, peripheral vascular disease, status post left below-knee amputation, diabetes complicated with neuropathy and nephropathy, perica rdial effusion, COPD, end-stage renal disease on hemodialysis, TTS at [facility] through AV fistula. The patient came to the hospital as the patient went to her surgeon for change i n the color of the toes, found to have wet gangrene with extending cellulitis. The patient admitted for further workup. Plan possible for below-knee amputation. Plan for MRI. The patient's primary w orkup shows that she has anemia. She has mild and hypokalemia. The patient due for dialy sis today. For that reason, we have been consulted. Past Medical History: Include, 1.Coronary artery disease, status post non-ST elevation [place] complicated with congestive heart failure . 2.Peripheral vascular disease. 3.Diabetes complicated with neuropathy and nephropathy. 4.Hypertension. 5.Pericardial effusion. 6.COPD. 7.End-stage renal disease, on hemodialysis, TTS at [facility] through left AV fi stula. Past Surgical History: Includes, 1.AV fistula creation. 2.Below-knee amputation. 3.PTCA. Home Medications: Include Epogen, carvedilol, lisinopril, clonidine, pantoprazole, hydrocodone, and antibiotic. Family History: Positive for diabetes and hypertension. Allergies: TO RAMIPRIL, TYLENOL, AND PLAVIX. Review of Systems: Head and Neck: No red eye. No ear pain. GI: No nausea, no vomiting. : No polyuria, no dysuria, no hematuria. Research Pharmacist: No vaginal discharge. Respiratory: Has mild shortness of breath. Cardiovascular: Has gangrenous toes. Has occasional chest pain. Endocrine: No polydipsia. Skin: No rash. Neuro: Has neuropathy. Musculoskeletal: Has foot pain. Physical Examination: Vital Signs: Blood pressure of 95/51, pulse of 68, afebrile. Heart: S1 and S2. Systolic murmur. Abdomen: Soft, nontender. Extremities: No edema. Left below-knee amputation. Right side erythema to the middle of the foot w ith gangrenous toe on the big toe and the second toe. Neurologic: Alert, no focal. Laboratory Data: WBC 13.6, H and H of 10.7 and 34.4, platelets of 315. Sodium 135, potassium 3.9, b icarb 25, BUN 56, creatinine 4.6, calcium 9.2, phosphorus 2.8. Procalcitonin 1.7. Current Medications: The patient on include Zosyn 2.25 q.6, vancomycin 1 g with dialysis, Zofran, in sulin, tramadol, and KCl. Assessment And Plan: 1.End-stage renal disease, slightly on the wet side. I am going to go ahead and arrange for dialysi s today. 2.Hypertension, currently hypotension. Hold all blood pressure medication. 3.Electrolyte imbalance, hypokalemia with going to be corrected on dialysis. We will macey lyze the patient on high potassium bath. 4.Anemia of chronic kidney disease. We will start the patient on Epogen. 5.Gangrenous foot. Agree with antibiotic, dose adjusted. We will follow up with Surgery. 6.Diabetes as by primary. MARY/MICHAEL Voice ID: [id number] Report ID: [id number]
--- NOTE | 2018-05-09 18:12 | P.HP ---
Certification for Inpatient Patient admitted to: Inpatient With expected LOS: >2 Midnights Patient will require the following post-hospital care: Hospice Practitioner: I am a practitioner with admitting privileges, knowledge of patient current condition, hospital course, and medical plan of care. Services: Services provided to patient in accordance with Admission requirements found in Title 42 Section 412.3 of the Code of Federal Regulations Patient History Date of Service: 05/08/18 Reason for admission: gangrenous diabetic foot History of Present Illness: Patient is an 82-year-old female came to the hospital with a gangrenous right foot. Patient is on hospice for cardiovascular disease. Patient also has end- stage renal disease and is on hemodialysis. Of note patient for quite a while and she is to be admitted for hypertensive emergency. Unfortunately, her symptoms have progressed over the last couple of years and she required amputation of her left foot. Patient ended up on hospice care. She is gradually decline. However her right foot has become gangrenous and is causing her extreme amount of pain. This is unrelated to her hospice diagnosis but surgical intervention may be beneficial and be palliative in her care. Allergies ramipril [From Altace] Allergy (Unknown, Verified 04/08/18 07:29) Hives/Rash acetaminophen [From Vicodin] Allergy (Verified 04/08/18 07:29) unknown clopidogrel bisulfate [From Plavix] Allergy (Verified 04/08/18 07:29) Hives enalapril maleate [From Vasotec] Allergy (Verified 04/08/18 07:29) Hives hydrocodone [From Vicodin] Allergy (Verified 04/08/18 07:29) unknown morphine Allergy (Verified 04/08/18 07:29) Itching/Hives/Rash propoxyphene napsylate [From Darvocet-N 100] Allergy (Verified 04/08/18 07:29) Hives/Rash simvastatin [From Zocor] Allergy (Verified 04/08/18 07:29) Hives/Rash codeine [Codeine] Adverse Reaction (Mild, Verified 04/08/18 07:29) vomiting rash lorazepam Adverse Reaction (Verified 04/08/18 07:29) Nausea/Vomiting Home Medications: Atorvastatin Calcium [Lipitor] 40 mg PO BEDTIME 05/09/18 Carvedilol [Coreg] 3.125 mg PO DAILY 05/09/18 Citalopram [Celexa] 20 mg PO DAILY 05/09/18 Folic Acid/B Complex C No.17 [Dexifol Caplet] 5 mg PO DAILY 05/09/18 Gabapentin 300 mg PO BID 05/09/18 Insulin Lispro [Humalog] 100 unit SQ ACHS 05/09/18 Latanoprost/Pf [Latanoprost 0.005% Eye Drop] 1 drop EACH EYE BEDTIME 05/09/18 Lisinopril [Prinivil] 20 mg PO DAILY 05/09/18 Nystatin 15 appl TP BID 05/09/18 - Past Medical/Surgical History Has patient received pneumonia vaccine in the past: Yes Diabetic: Yes -: Depression -: GERD -: HTN -: End-stage renal disease, on hemodialysis -: History pacemaker -: Diabetes mellitus type 2 -: Hyperlipidemia -: CAD with prior stent -: PVD -: Gangrene to the right great toe -: Prior left BKA -: STENTS IN HEART -: STENT IN KIDNEY -: CARPAL TUNNEL R HAND -: BLADDER SUSPENSION -: Hysterectomy -: Left BKA Psychosocial/ Personal History: Patient currently in rehab - Family History Father Notes: bleeding ulcers Mother Medical History: Heart disease, Hypertension, Stroke Brother Medical History: Heart disease, Diabetes, Stroke, Cancer Notes: esphogeal cancer Sister Medical History: Heart disease, Hypertension, Diabetes - Social History Smoking Status: Former smoker Alcohol use: Yes CD- Drugs: No Caffeine use: Yes Place of Residence: Care Home Review of Systems 10-point ROS is otherwise unremarkable Physical Examination - Vital Signs Temperature: 97.6 F Blood Pressure: 100/46 Pulse: 68 Respirations: 16 Pulse Ox (%): 98 - Physical Exam General: Alert, In no apparent distress, Oriented x3 HEENT: Atraumatic, PERRLA, Mucous membr. moist/pink, EOMI, Sclerae nonicteric Neck: Supple, 2+ carotid pulse no bruit, No LAD, Without JVD or thyroid abnormality Respiratory: Clear to auscultation bilaterally, Normal air movement Cardiovascular: Regular rate/rhythm, Normal S1 S2, Systolic murmur Gastrointestinal: Normal bowel sounds, Soft and benign, Non-distended, No tenderness Musculoskeletal: No clubbing, No swelling, No tenderness Integumentary: No rashes Neurological: Normal gait, Normal tone, Sensation intact, Cranial nerves 3-12 intact, Normal affect Lymphatics: No axilla or inguinal lymphadenopathy - Studies Laboratory Data (last 24 hrs) 05/08/18 17:40: Sodium 132 L, Potassium 3.9, BUN 50 H, Creatinine 4.33 H, Glucose 171 H Microbiology Data (last 24 hrs): 05/08/18 18:00 Blood - Blood Anaerobic Blood Culture - Final Assessment & Plan - Problems (Diagnosis) (1) Cardiomyopathy Current Visit: Yes Status: Acute (2) Gangrene of right foot Current Visit: Yes Status: Acute (3) Depression Current Visit: No Status: Chronic Qualifiers: (4) Diabetes mellitus Onset Date: 06/28/17 Current Visit: No Status: Chronic Qualifiers: Diabetes mellitus type: type 2 Diabetes mellitus intermediate insulin use: with termite control service representative use Diabetes mellitus complication status: with circulatory complication Diabetes mellitus complication detail: with peripheral angiopathy with gangrene Qualified Code(s): E11.52 - Type 2 diabetes mellitus with diabetic peripheral angiopathy with gangrene; Z79.4 - [facility] (current) use of insulin (5) ESRD (end stage renal disease) Onset Date: 06/17/14 Current Visit: No Status: Chronic (6) PVD (peripheral vascular disease) Onset Date: 06/28/17 Current Visit: No Status: Chronic - Plan 1. Continue with IV antibiotic 2. Continue with local wound care 3. Wound care consultation/surgical consultation 4. Nephrology consultation for hemodialysis 5. Monitor CBC 6. Strict blood sugar monitoring 7. Pain control 8. GI and DVT prophylaxis Discharge Plan: Care Home Plan to discharge in: Greater than 2 days - Advance Directives Does patient have a Living Will: Yes Does patient have a Durable POA for Healthcare: Yes - Code Status/Comfort Care Code Status Assessed: Yes Code Status: Full Code Critical Care: No Time Spent Managing PTS Care (In Minutes): 50
[2018-05-09] MEDS: EPOETIN ALFA 10,000 UNIT/ML VIAL IV SCH (20:31)
[2018-05-09] MEDS: GABAPENTIN 300 MG CAP PO SCH (22:03)
[2018-05-09] MEDS: ATORVASTATIN 40 MG TAB PO SCH (22:03)
[2018-05-10] MEDS: HYDROMORPHONE HCL 1 MG/ML INJ IV PRN (02:14)
[2018-05-10] MEDS: PIPER/TAZO/NS 2.25gm 2.25 GM/50 ML BAG IVPB SCH ×3 (05:18→20:14)
[2018-05-10] MEDS: TRAMADOL HCL 50 MG TAB PO PRN ×2 (05:25→18:01)
[2018-05-10 05:56] LABS: Absolute Monocytes 0.7 K/uL (0.1-1.3); Eosinophils % 4.3 % (0-4.4); Hematocrit 37.2 % (36.0-45.0); Lymphocytes % 9.3 % (15.3-44.8); MPV 8.9 fL (7.6-11.3); Monocytes % 6.2 % (3.3-12.3); RBC Red Blood Cell Count 4.22 M/uL (3.86-4.86)
[2018-05-10 06:05] LABS: Albumin 2.5 g/dL (3.4-5.0); Bilirubin Total 0.5 mg/dL (0.2-1.0); Potassium 4.1 mmol/L (3.5-5.1)
[2018-05-10] MEDS: INSULIN -REGULAR HUMAN 50 UNIT/0.5 ML ML SQ SCH ×4 (07:30→20:14)
--- NOTE | 2018-05-10 08:57 | P.CNS ---
Date of Consult: 05/08/18 Reason for Consult: right foot gangrene Chief Complaint: gangrenous diabetic foot History of Present Illness: 82 y/o pt shelter bound with severe PVD on HD for ESRD, previous amputations now with R foot gangrene. Allergies ramipril [From Altace] Allergy (Unknown, Verified 04/08/18 07:29) Hives/Rash acetaminophen [From Vicodin] Allergy (Verified 04/08/18 07:29) unknown clopidogrel bisulfate [From Plavix] Allergy (Verified 04/08/18 07:29) Hives enalapril maleate [From Vasotec] Allergy (Verified 04/08/18 07:29) Hives hydrocodone [From Vicodin] Allergy (Verified 04/08/18 07:29) unknown morphine Allergy (Verified 04/08/18 07:29) Itching/Hives/Rash propoxyphene napsylate [From Darvocet-N 100] Allergy (Verified 04/08/18 07:29) Hives/Rash simvastatin [From Zocor] Allergy (Verified 04/08/18 07:29) Hives/Rash codeine [Codeine] Adverse Reaction (Mild, Verified 04/08/18 07:29) vomiting rash lorazepam Adverse Reaction (Verified 04/08/18 07:29) Nausea/Vomiting Home Medications: Atorvastatin Calcium [Lipitor] 40 mg PO BEDTIME 05/09/18 Carvedilol [Coreg] 3.125 mg PO DAILY 05/09/18 Citalopram [Celexa] 20 mg PO DAILY 05/09/18 Folic Acid/B Complex C No.17 [Dexifol Caplet] 5 mg PO DAILY 05/09/18 Gabapentin 300 mg PO BID 05/09/18 Insulin Lispro [Humalog] 100 unit SQ ACHS 05/09/18 Latanoprost/Pf [Latanoprost 0.005% Eye Drop] 1 drop EACH EYE BEDTIME 05/09/18 Lisinopril [Prinivil] 20 mg PO DAILY 05/09/18 Nystatin 15 appl TP BID 05/09/18 - Past Medical/Surgical History Diabetic: Yes -: Depression -: GERD -: HTN -: End-stage renal disease, on hemodialysis -: History pacemaker -: Diabetes mellitus type 2 -: Hyperlipidemia -: CAD with prior stent -: PVD -: Gangrene to the right great toe -: Prior left BKA -: STENTS IN HEART -: STENT IN KIDNEY -: CARPAL TUNNEL R HAND -: BLADDER SUSPENSION -: Hysterectomy -: Left BKA Psychosocial/ Personal History: Patient currently in rehab - Family History Father Notes: bleeding ulcers Mother Medical History: Heart disease, Hypertension, Stroke Brother Medical History: Heart disease, Diabetes, Stroke, Cancer Notes: esphogeal cancer Sister Medical History: Heart disease, Hypertension, Diabetes - Social History Smoking Status: Unknown if ever smoked Alcohol use: Yes CD- Drugs: No Caffeine use: Yes Place of Residence: Assisted Review of Systems is unable to be obtained Physical Examination Temp Pulse Resp BP Pulse Ox 97.8 F 84 17 106/59 L 96 05/10/18 04:00 05/10/18 04:00 05/10/18 04:00 05/10/18 04:00 05/10/18 04:00 General: Alert, In no apparent distress, Cooperative, Demented HEENT: PERRLA, EOMI Neck: Supple Gastrointestinal: Soft and benign Musculoskeletal: Tenderness, Warmth, Other (LBKA well healed) Integumentary: Erythema, Warmth, Cyanosis (R distal foot gangrene. ) Conclusions/Impression: iv abx medical and renal evaluation preoperatively Pt and family fully explained BAR of R BKA which include but not limited to infection, bleeding, damage to adjacent structures, HI even . PT has severe PVD making healing challenging over the amputation site and they were explained she may need AKA if the flaps and amputation site shows no proper healing. SHe want to keep her knee.
[2018-05-10] MEDS: CARVEDILOL 3.125 MG TAB PO SCH (09:00)
[2018-05-10] MEDS: GABAPENTIN 300 MG CAP PO SCH ×2 (09:00→20:14)
[2018-05-10] MEDS: LISINOPRIL 20 MG TAB PO SCH (09:00)
[2018-05-10] MEDS: CITALOPRAM 10 MG TABLET PO SCH (09:00)
[2018-05-10] MEDS ORDERED: NA CHLORIDE 0.9% 500 ML ONE (11:59)
[2018-05-10] MEDS ORDERED: BUPIVACAINE 0.5% PF 10 ML VIAL ONE (12:23)
[2018-05-10] MEDS ORDERED: FENTANYL CITR 100 MCG/2 ML ONE (12:30)
[2018-05-10] MEDS ORDERED: PROPOFOL 200 MG/20 ML VIAL IV ONE (12:30)
[2018-05-10] MEDS ORDERED: LIDOCAINE 1% MPF 5 ML VIAL ONE (12:30)
[2018-05-10] MEDS ORDERED: NS 0.9% VIAL 10 ML ONE ×2 (12:55→13:13)
[2018-05-10] MEDS ORDERED: EPHEDRINE SULF 50 MG/10 ML SYR ONE (12:55)
[2018-05-10] MEDS ORDERED: Phenylephrine HCl 10 MG/ML 1 ML VIAL ONE (13:13)
--- NOTE | 2018-05-10 13:45 | P.BOP ---
Preoperative diagnosis: right foot gangrene, ESRD Postoperative diagnosis: same Primary procedure: Right BKA Cloth Boil Off Machine Operator: Adriana Hawley (JuanNFA) Estimated blood loss: <100cc Specimen: leg Anesthesia: General Complications: None Drain(s): HAZEL drain Transferred to: Recovery Room Condition: Good
[2018-05-10] MEDS: HYDROMORPHONE HCL 2 MG/ML inj ONE ×4 (13:50→14:08)
[2018-05-10] MEDS ORDERED: NA CHLORIDE 0.9% 1,000 ML IV SCH (17:00)
--- NOTE | 2018-05-10 18:27 | P.PN ---
Subjective Date of Service: 05/10/18 Chief Complaint: gangrenous diabetic foot Status post right BKA today Patient received pain meds Dilaudid and fentanyl during the procedure and patient had hypotension after the surgery Patient was given 1 L of normal saline bolus mode pressure improved to 100/60 Patient's family decided for DNI DNR Review of Systems 10-point ROS is otherwise unremarkable Physical Examination - Vital Signs Temperature: 97.9 F Blood Pressure: 73/43 Pulse: 90 Respirations: 20 Pulse Ox (%): 94 - Physical Exam General: Alert, Oriented x3 HEENT: Atraumatic, Normocephalic Neck: Supple, JVD not distended Respiratory: Clear to auscultation bilaterally, Normal air movement Cardiovascular: No edema, Normal pulses, Regular rate/rhythm, Normal S1 S2 Gastrointestinal: Normal bowel sounds, Soft and benign, Non-distended Musculoskeletal: No swelling (Patient had left BKA, dressing applied to right foot) Integumentary: No rashes - Studies Microbiology Data (last 24 hrs): 05/08/18 18:00 Blood - Blood Anaerobic Blood Culture - Final Medications List Reviewed: Yes Assessment And Plan - Current Problems (Diagnosis) (1) Gangrene of right foot Current Visit: Yes Status: Acute (2) Below knee amputation status Current Visit: Yes Status: Acute Qualifiers: Laterality: right Qualified Code(s): Z89.511 - Acquired absence of right leg below knee (3) Gangrene Onset Date: 04/09/18 Current Visit: Yes Status: Acute (4) Depression Current Visit: No Status: Chronic Qualifiers: (5) Diabetes mellitus Onset Date: 06/28/17 Current Visit: No Status: Chronic Qualifiers: Diabetes mellitus type: type 2 Diabetes mellitus care home insulin use: with care home use Diabetes mellitus complication status: with circulatory complication Diabetes mellitus complication detail: with peripheral angiopathy with gangrene Qualified Code(s): E11.52 - Type 2 diabetes mellitus with diabetic peripheral angiopathy with gangrene; Z79.4 - shelter (current) use of insulin (6) ESRD (end stage renal disease) Onset Date: 06/17/14 Current Visit: No Status: Chronic - Plan Assessment and plan Gangrene of the right foot Status post right BKA Surgery Dr. Rondon is following the patient. Follow-up cultures Wound culture growing Gram-positive cocci and Gram-negative rods Blood culture no growth to date X-rays are negative for osteomyelitis MRI was not done pt has pacemaker Continue IV antibiotics for now Zosyn and vancomycin ESRD on hemodialysis. Continue as scheduled continue other home meds for other comorbidities
[2018-05-10] MEDS: ATORVASTATIN 40 MG TAB PO SCH (20:14)
--- NOTE | 2018-05-10 20:21 | P.PN ---
Subjective Date of Service: 05/10/18 Chief Complaint: gangrenous diabetic foot Subjective: No new changes no new complaints HD tomorrow possible surgical intervention today BP borderline Physical Examination - Vital Signs Temperature: 97.9 F Blood Pressure: 73/43 Pulse: 90 Respirations: 20 Pulse Ox (%): 94 - Physical Exam General: Alert, In no apparent distress HEENT: Atraumatic Neck: Supple Respiratory: Crackles/rales Cardiovascular: No edema, Regular rate/rhythm, Normal S1 S2, No gallops, No rubs , No murmurs Gastrointestinal: Normal bowel sounds Integumentary: No rashes - Studies Microbiology Data (last 24 hrs): 05/08/18 18:00 Blood - Blood Anaerobic Blood Culture - Final Medications List Reviewed: Yes Assessment And Plan - Current Problems (Diagnosis) (1) Gangrene Onset Date: 04/09/18 Current Visit: Yes Status: Acute (2) ESRD (end stage renal disease) Onset Date: 06/17/14 Current Visit: No Status: Chronic - Plan Assessment And Plan: ESRD on HD via lt AVF HD TTsat renal diet renal dose meds Anemia of CKD cont JESSICA rt foot gangrane possible surgical intervention today Cont Abx DM as per primary
[2018-05-10] MEDS ORDERED: VANCOMYCIN/NS 1 gm 1 GM/250 ML BAG IV SCH (21:00)
[2018-05-10] MEDS: FENTANYL CITR 100 MCG/2 ML IV PRN (22:15)
[2018-05-11] MEDS: TRAMADOL HCL 50 MG TAB PO PRN ×2 (00:28→06:24)
[2018-05-11] MEDS: FENTANYL CITR 100 MCG/2 ML IV PRN (02:17)
[2018-05-11] MEDS ORDERED: TEMAZEPAM 15 MG CAP PO PRN (02:20)
[2018-05-11] MEDS: PIPER/TAZO/NS 2.25gm 2.25 GM/50 ML BAG IVPB SCH ×3 (03:18→20:28)
[2018-05-11 06:17] LABS: Absolute Lymphocytes (CBC) 1.2 K/uL (0.7-4.9); Absolute Monocytes 0.9 K/uL (0.1-1.3); Basophils % 1.1 % (0-1.3); Eosinophils % 3.3 % (0-4.4); Lymphocytes % 10.1 % (15.3-44.8); MPV 8.8 fL (7.6-11.3); Monocytes % 7.8 % (3.3-12.3); RBC Red Blood Cell Count 4.06 M/uL (3.86-4.86)
[2018-05-11 06:33] LABS: Albumin 2.5 g/dL (3.4-5.0); Bilirubin Total 0.5 mg/dL (0.2-1.0); Potassium 4.2 mmol/L (3.5-5.1); Protein, Total 6.8 g/dL (6.4-8.2)
[2018-05-11] MEDS: INSULIN -REGULAR HUMAN 50 UNIT/0.5 ML ML SQ SCH ×4 (07:30→20:31)
[2018-05-11] MEDS: LISINOPRIL 20 MG TAB PO SCH (08:40)
[2018-05-11] MEDS: CITALOPRAM 10 MG TABLET PO SCH (08:45)
[2018-05-11] MEDS: CARVEDILOL 3.125 MG TAB PO SCH (08:46)
[2018-05-11] MEDS: GABAPENTIN 300 MG CAP PO SCH ×2 (08:46→20:29)
--- NOTE | 2018-05-11 11:27 | OP ---
Date of Procedure: 05/10/2018 Surgeon: Matt Rondon MD Preoperative Diagnosis: Right foot gangrene. Postoperative Diagnosis: Right foot gangrene. Procedure: Right below-knee amputation. Anesthesia: General. Drain: HAZEL drain #10. Estimated Blood Loss: Less than 100 disease. Complications: None. Specimen: Leg. History Of Present Illness: This is the case of an 82-year-old patient with multiple medical problem s including renal failure, on hemodialysis; severe peripheral vascular disease with previous amputati ons of extremities; now comes with a right foot gangrene. The patient was on hospice apparently in [facility], but then the patient's family and the patient changed mind. She, as such, was admit geovanna to the hospital with a right foot gangrene and the request of below-knee amputation. Understandi ng that even at that level, she has peripheral vascular disease, but she wanted to keep her knee. Th e area is getting cellulitis and getting wet gangrene. So, they fully understand the risks of the chan rgery and also the risks of not doing the surgery. So, they wanted surgery done, understanding the h igh risk of . With benefits, alternatives, and risks of surgery fully explained, which include, but are not limited to infection, bleeding, damage to adjacent structures, anesthesia complication, nonhealing wound, flap failure, WI, and even . She also understands this may not relieve the sy mptoms. She might need more than one surgical intervention. She understood. Consent was signed. Description Of Procedure: The patient was brought to the operating room, placed in supine position. Anesthesia was done without complication. A time-out was called. The right leg was prepped and randee ped in a sterile fashion. Anterior and posterior skin incisions were outlined with a marking pen. [facility] anterior incision was made approximately 10 to 12 cm below the tibial tuberosity, about 4 fingerbr eadths below, and extending medially and lateral toward the edges of the gastrocnemius muscle. Incis ions were made over that area and extended laterally to about 12 cm, creating the posterior flap. Th e skin and subcutaneous tissue were cut with a knife and then after that, with the Bovie cauterizer. Saphenous veins were identified and suture ligated. The fascia and the muscles were divided with e electrocautery at the same level of the anterior skin incision. The muscles in anterior and latera l compartments were divided, exposing calcified anterior tibial vessels. They were ligated with silk . The interosseous membrane was then incised. The tibial periosteum was then incised circumferentia lly with Bovie cauterizer. We used the periosteal elevator to elevate the tibial periosteum and stri pped about 2 cm. The tibia was then transected with a Gigli saw, proximal to the skin incision, with an anterior bevel. The fibula was exposed and dissected circumferentially and transected about a ce ntimeter higher than the tibial. The amputation was then completed with the Bovie cauterizer, transe cting through the soleus muscle and gastrocnemius muscle. The sharp bony edges were filed. The fasc ia of the anterior and posterior muscle flaps were approximated with #1 Vicryl. The subcutaneous tis ekndell was approximated with 2-0 chromic and the skin with mary ann. HAZEL drain was left before closure ac tually into another incision sites and secured in place with 2-0 nylon and connected to bulb suction. Sterile dressing was placed over the area. The patient tolerated the procedure well. The patient was sent to recovery in stable condition. GALINDO/MICHAEL Voice ID: [id number] Report ID: [id number]
[2018-05-11] MEDS ORDERED: ZOLPIDEM TARTRATE 5 MG TABLET PO ONE (11:47)
--- NOTE | 2018-05-11 14:45 | P.PN ---
Subjective Date of Service: 05/11/18 Chief Complaint: gangrenous diabetic foot Status post right BKA 05/10/18 Pain is well controlled Hemodialysis today Ambien given for insomnia Review of Systems 10-point ROS is otherwise unremarkable Physical Examination - Vital Signs Temperature: 97.8 F Blood Pressure: 104/56 Pulse: 88 Respirations: 18 Pulse Ox (%): 96 - Physical Exam General: Alert, Confused HEENT: Atraumatic, Normocephalic, PERRLA Neck: Supple, JVD not distended Respiratory: Clear to auscultation bilaterally, Normal air movement Cardiovascular: No edema, Normal pulses, Regular rate/rhythm, Normal S1 S2 Gastrointestinal: Normal bowel sounds, Soft and benign, Non-distended Musculoskeletal: No erythema (right BKA dressing applied and HAZEL drain 15 cc ) - Studies Medications List Reviewed: Yes Assessment And Plan - Current Problems (Diagnosis) (1) Gangrene of right foot Current Visit: Yes Status: Acute (2) Below knee amputation status Current Visit: Yes Status: Acute Qualifiers: Laterality: right Qualified Code(s): Z89.511 - Acquired absence of right leg below knee (3) Gangrene Onset Date: 04/09/18 Current Visit: Yes Status: Acute (4) Depression Current Visit: No Status: Chronic Qualifiers: (5) Diabetes mellitus Onset Date: 06/28/17 Current Visit: No Status: Chronic Qualifiers: Diabetes mellitus type: type 2 Diabetes mellitus manager terminal insulin use: with manager terminal use Diabetes mellitus complication status: with circulatory complication Diabetes mellitus complication detail: with peripheral angiopathy with gangrene Qualified Code(s): E11.52 - Type 2 diabetes mellitus with diabetic peripheral angiopathy with gangrene; Z79.4 - intermediate (current) use of insulin (6) ESRD (end stage renal disease) Onset Date: 06/17/14 Current Visit: No Status: Chronic - Plan Assessment and plan Gangrene of the right foot Status post right BKA Surgery Dr. Rondon is following the patient. Follow-up cultures Wound culture growing Gram-positive cocci and Gram-negative rods Blood culture no growth to date X-rays are negative for osteomyelitis MRI was not done pt has pacemaker Continue IV antibiotics for now Zosyn and vancomycin ESRD on hemodialysis. Continue as scheduled continue other home meds for other comorbidities
--- NOTE | 2018-05-11 15:59 | P.PN ---
Subjective Date of Service: 05/11/18 Chief Complaint: gangrenous diabetic foot Subjective: No new changes no new complaints HD today S/p rt BKA BP dropped after surgery yesterday , recived 1liter NS now BP ok Physical Examination - Vital Signs Temperature: 97.8 F Blood Pressure: 104/56 Pulse: 88 Respirations: 18 Pulse Ox (%): 96 - Physical Exam General: Alert, In no apparent distress HEENT: Atraumatic Neck: Supple, Without JVD or thyroid abnormality Respiratory: Crackles/rales Cardiovascular: No edema, Regular rate/rhythm, Normal S1 S2 Gastrointestinal: Normal bowel sounds Musculoskeletal: Other (Rt BKA, Lt AKA ) External genitalia: No edema - Studies Medications List Reviewed: Yes Assessment And Plan - Current Problems (Diagnosis) (1) Gangrene Onset Date: 04/09/18 Current Visit: Yes Status: Acute (2) ESRD (end stage renal disease) Onset Date: 06/17/14 Current Visit: No Status: Chronic - Plan Assessment And Plan: ESRD on HD via lt AVF HD TTsat renal diet renal dose meds Anemia of CKD cont JESSCIA rt foot gangrane S/p rt BKA Cont Abx DM as per primary HTN now on the low side will dc lisinopril will cont coreg for now will give midodrine during HD
[2018-05-11] MEDS: MIDODRINE HCL 5 MG TABLET PO PRN (16:19)
[2018-05-11] MEDS: ATORVASTATIN 40 MG TAB PO SCH (20:29)
[2018-05-11] MEDS ORDERED: VANCOMYCIN 500 MG/VIAL ONE (21:03)
[2018-05-11] MEDS ORDERED: NA CHLORIDE 0.9% 100 ML IV ONE (21:23)
[2018-05-12] MEDS: PIPER/TAZO/NS 2.25gm 2.25 GM/50 ML BAG IVPB SCH ×2 (03:40→13:29)
[2018-05-12 05:55] LABS: Absolute Lymphocytes (CBC) 1.3 K/uL (0.7-4.9); Absolute Neutrophil 9.4 K/uL (1.8-8.0); Basophils % 1.1 % (0-1.3); Eosinophils % 2.7 % (0-4.4); Hematocrit 34.9 % (36.0-45.0); MPV 8.7 fL (7.6-11.3); Monocytes % 8.1 % (3.3-12.3); RBC Red Blood Cell Count 3.99 M/uL (3.86-4.86)
[2018-05-12 06:04] LABS: Albumin 2.3 g/dL (3.4-5.0); Bilirubin Total 0.7 mg/dL (0.2-1.0); Potassium 3.8 mmol/L (3.5-5.1); Protein, Total 6.6 g/dL (6.4-8.2)
[2018-05-12] MEDS: INSULIN -REGULAR HUMAN 50 UNIT/0.5 ML ML SQ SCH ×4 (07:30→20:11)
[2018-05-12] MEDS: CITALOPRAM 10 MG TABLET PO SCH (09:40)
[2018-05-12] MEDS: CARVEDILOL 3.125 MG TAB PO SCH (09:42)
[2018-05-12] MEDS: GABAPENTIN 300 MG CAP PO SCH ×2 (09:42→20:05)
[2018-05-12] MEDS: FENTANYL CITR 100 MCG/2 ML IV PRN ×2 (09:52→18:17)
--- NOTE | 2018-05-12 15:00 | P.PN ---
Subjective Date of Service: 05/12/18 Chief Complaint: gangrenous diabetic foot Subjective: No new changes ESRD with Rt foot infection S/p rt BKA HD TTsat some rales on exam BP borderline midodirne on HD days Physical Examination - Vital Signs Temperature: 98.1 F Blood Pressure: 132/61 Pulse: 99 Respirations: 18 Pulse Ox (%): 98 - Physical Exam General: Alert, In no apparent distress HEENT: Atraumatic Neck: Supple, Without JVD or thyroid abnormality Respiratory: Crackles/rales Cardiovascular: No edema, Regular rate/rhythm, Normal S1 S2, Abnormal S3, No murmurs Gastrointestinal: Normal bowel sounds Integumentary: No rashes - Studies Medications List Reviewed: Yes Assessment And Plan - Current Problems (Diagnosis) (1) Gangrene Onset Date: 04/09/18 Current Visit: Yes Status: Acute (2) ESRD (end stage renal disease) Onset Date: 06/17/14 Current Visit: No Status: Chronic - Plan Assessment And Plan: ESRD on HD via lt AVF HD TTsat renal diet renal dose meds Anemia of CKD cont JESSICA rt foot gangrane S/p rt BKA Cont Abx DM as per primary HTN now on the low side lisinopril and Coreg Dcd will give midodrine during HD
[2018-05-12] MEDS: TRAMADOL HCL 50 MG TAB PO PRN (15:38)
--- NOTE | 2018-05-12 16:11 | P.PN ---
Subjective Date of Service: 05/12/18 Chief Complaint: gangrenous diabetic foot Status post right BKA 05/10/18 Pain is well controlled Abx adjusted based on wound culture result Review of Systems 10-point ROS is otherwise unremarkable Physical Examination - Vital Signs Temperature: 98.1 F Blood Pressure: 132/61 Pulse: 99 Respirations: 18 Pulse Ox (%): 98 - Physical Exam General: Alert, Cooperative, Confused HEENT: Atraumatic, Normocephalic, PERRLA Neck: 2+ carotid pulse no bruit, JVD not distended Respiratory: Clear to auscultation bilaterally, Normal air movement Cardiovascular: No edema, Normal pulses, Regular rate/rhythm, Normal S1 S2 Gastrointestinal: Normal bowel sounds, Soft and benign, Non-distended Musculoskeletal: No swelling, No erythema Integumentary: No rashes Neurological: Normal speech, Normal strength at 5/5 x4 extr - Studies Medications List Reviewed: Yes Assessment And Plan - Current Problems (Diagnosis) (1) Gangrene of right foot Current Visit: Yes Status: Acute (2) Below knee amputation status Current Visit: Yes Status: Acute Qualifiers: Laterality: right Qualified Code(s): Z89.511 - Acquired absence of right leg below knee (3) Gangrene Onset Date: 04/09/18 Current Visit: Yes Status: Acute (4) Depression Current Visit: No Status: Chronic Qualifiers: (5) Diabetes mellitus Onset Date: 06/28/17 Current Visit: No Status: Chronic Qualifiers: Diabetes mellitus type: type 2 Diabetes mellitus [employer] customer [employer] insulin use: with fdc use Diabetes mellitus complication status: with circulatory complication Diabetes mellitus complication detail: with peripheral angiopathy with gangrene Qualified Code(s): E11.52 - Type 2 diabetes mellitus with diabetic peripheral angiopathy with gangrene; 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 Rondon is following the patient. wound cultures grwing klebsiella pna,e fecalis and psudomonas ,levaquin added Blood culture no growth to date X-rays are negative for osteomyelitis MRI was not done pt has pacemaker ESRD on hemodialysis. Continue as scheduled continue other home meds for other comorbidities
[2018-05-12] MEDS ORDERED: Levofloxacin500mg IV 500 MG/100 ML BAG IV SCH (17:00)
[2018-05-12] MEDS: HYDROMORPHONE HCL 1 MG/ML INJ IV PRN (20:05)
[2018-05-12] MEDS: ATORVASTATIN 40 MG TAB PO SCH (20:05)
[2018-05-13] MEDS: HYDROMORPHONE HCL 1 MG/ML INJ IV PRN ×3 (02:51→20:19)
--- NOTE | 2018-05-13 03:30 | PN ---
Date of Progress Note: 05/12/2018 Diagnoses: Status post below-knee amputation, status post gangrene, cellulitis of legs. History Of Present Illness: The patient is doing well, awake and alert. Getting better control of h er pain. Tolerating diet. Review of Systems: Ten point otherwise unremarkable. Physical Examination: General: The patient is awake, alert. No distress. Abdomen: Soft and depressible. Extremities: Intact surgical site. HAZEL drains minimal. Laboratory Data: WBC count is 12.2 with hemoglobin of 11.2. Plan: The patient will continue on the antibiotics. Remember that we just in this patient removed t he gangrenous foot, but that is associated with cellulitis of the leg, and that is why we are treatin g at this time right now. Several days of antibiotics will take care of the redness over that area t hat may compromise the flaps if we do not take care of that. Although the amputation is done and the gangrene is gone, that are the clinical findings that we have, which we have to treat. We expect th e patient in the next few days to conclude the IV antibiotics and then go home with p.o. antibiotics or to the shelter where she lived before. We will follow the patient with you. GALINDO/MICHAEL Voice ID: [id number] Report ID: [id number]
[2018-05-13] MEDS: TRAMADOL HCL 50 MG TAB PO PRN ×3 (04:56→18:58)
[2018-05-13] MEDS ORDERED: DIPHENHYDRAMINE 50 MG/ML VIAL IV ONE (05:47)
[2018-05-13 06:01] LABS: Absolute Lymphocytes (CBC) 1.8 K/uL (0.7-4.9); Absolute Neutrophil 8.6 K/uL (1.8-8.0); Basophils % 1.3 % (0-1.3); Eosinophils % 5.1 % (0-4.4); Hematocrit 35.5 % (36.0-45.0); Lymphocytes % 14.6 % (15.3-44.8); MPV 8.6 fL (7.6-11.3); Monocytes % 8.2 % (3.3-12.3); RBC Red Blood Cell Count 4.01 M/uL (3.86-4.86)
[2018-05-13 06:06] LABS: Albumin 2.3 g/dL (3.4-5.0); Bilirubin Total 0.6 mg/dL (0.2-1.0); Potassium 4.2 mmol/L (3.5-5.1); Protein, Total 6.7 g/dL (6.4-8.2)
[2018-05-13] MEDS: INSULIN -REGULAR HUMAN 50 UNIT/0.5 ML ML SQ SCH ×4 (07:30→21:00)
[2018-05-13] MEDS: CITALOPRAM 10 MG TABLET PO SCH (09:13)
[2018-05-13] MEDS: GABAPENTIN 300 MG CAP PO SCH ×2 (09:19→20:20)
[2018-05-13] MEDS: CARVEDILOL 3.125 MG TAB PO SCH (09:20)
--- NOTE | 2018-05-13 15:12 | P.PN ---
Subjective Date of Service: 05/13/18 Primary Care Provider: Dr. Lema Chief Complaint: gangrenous diabetic foot Subjective: Improving Physical Examination - Vital Signs Temperature: 98 F Blood Pressure: 105/60 Pulse: 88 Respirations: 20 Pulse Ox (%): 96 - Physical Exam General: Alert, In no apparent distress, Oriented x3, Cooperative HEENT: Atraumatic Neck: Supple Respiratory: Clear to auscultation bilaterally, Normal air movement Cardiovascular: Normal pulses, Regular rate/rhythm Gastrointestinal: Normal bowel sounds, Soft and benign, Non-distended, No masses , No rebound, No guarding Integumentary: Other (The patient is status post right below-knee amputation) Neurological: Normal speech, Normal strength at 5/5 x4 extr, Normal tone - Studies Medications List Reviewed: Yes Assessment & Plan Discharge Plan: Other ([facility] facility) Plan to discharge in: 24 Hours Physician Review Additional Text: Impression: Right foot gangrene with wound culture positive for Klebsiella, Enterococcus and Pseudomonas status post right below-knee amputation Diabetes mellitus type 2, insulin-dependent Hypertension End-stage renal disease on hemodialysis Hyperlipidemia Depression Diabetic neuropathy Plan: Gangrene with wound culture positive for Klebsiella, Enterococcus and Pseudomonas status post right below-knee amputation: Patient continues with an IV antibiotic therapy vancomycin/Levaquin. Will discuss with surgery on how long IV antibiotic therapy to be continued or if this can be transition to oral medication. Social work to evaluate patient for skilled facility placement. Patient agrees. Continue with pain control medication. Will adjust medication. May need to increase gabapentin. Diabetes mellitus type 2, insulin-dependent: Continue with sliding scale. Will provide basal insulin. Hypertension: Continue with medication. Will hold medication if blood pressure low. End-stage renal disease on hemodialysis: Nephrology continues to provide dialysis. Hyperlipidemia: Continue with medication. Depression: Continue with medication. Diabetic neuropathy: Continue with Gabapentin. Time Spent Managing Pts Care (In Minutes): 55
[2018-05-13] MEDS: ATORVASTATIN 40 MG TAB PO SCH (20:20)
[2018-05-13] MEDS ORDERED: HOME MED 1 EA UNK (Latanoprost/Pf [Latanoprost 0.005% Eye Drop] 1 DROP) EACH EYE SCH (21:00)
--- NOTE | 2018-05-14 04:13 | PN ---
Date of Progress Note: 05/13/2018 Chief Complaint: End-stage renal disease, on dialysis. History Of Present Illness: The patient is admitted to the hospital because of lower extremity gangr enous diabetic foot. She underwent right BKA. She has been dialyzed 3 times per week. The patient has history of intradialytic hypotension and she is on midodrine. Review of Systems: Denies fever or chills. Physical Examination: Lungs: Few crackles at bases. Heart: S1, S2. Abdomen: Soft, benign. Extremities: Dressing in place. Vitals: Blood pressure 130/60, heart rate 90, and respiratory rate 18, SpO2 98%. Impression And Plan: 1.End-stage renal disease, on dialysis. Continue dialysis 3 times per week. 2.Renal osteodystrophy. The patient is on binders. Continue current treatment. Monitor phosphorus level. 3.Diabetes mellitus. Continue insulin per sliding scale. 4.Hypertension. Hold blood pressure medication if systolic blood pressure is below 110. The patien t is on Coreg and lisinopril. The patient will require midodrine during dialysis to prevent intradialytic hypotension. RINA/MODAmie Voice ID: [id number] Report ID: [id number]
[2018-05-14 04:25] LABS: Absolute Lymphocytes (CBC) 1.5 K/uL (0.7-4.9); Absolute Monocytes 0.8 K/uL (0.1-1.3); Absolute Neutrophil 8.3 K/uL (1.8-8.0); Basophils % 1.1 % (0-1.3); Eosinophils % 6.4 % (0-4.4); Hematocrit 34.7 % (36.0-45.0); Lymphocytes % 13.4 % (15.3-44.8); MPV 8.7 fL (7.6-11.3)
[2018-05-14 04:49] LABS: Albumin 2.2 g/dL (3.4-5.0); Bilirubin Total 0.5 mg/dL (0.2-1.0); Potassium 4.3 mmol/L (3.5-5.1); Protein, Total 6.4 g/dL (6.4-8.2)
[2018-05-14 07:11] VITALS: BMI 21.7
[2018-05-14] MEDS: INSULIN -REGULAR HUMAN 50 UNIT/0.5 ML ML SQ SCH ×4 (07:30→21:00)
[2018-05-14] MEDS: CITALOPRAM 10 MG TABLET PO SCH (08:39)
[2018-05-14] MEDS: CARVEDILOL 3.125 MG TAB PO SCH (08:40)
[2018-05-14] MEDS: GABAPENTIN 300 MG CAP PO SCH ×2 (08:41→19:50)
[2018-05-14] MEDS: FOLIC ACID PO SCH (08:42)
[2018-05-14] MEDS: [UNRECOGNIZED DRUG - OTHER] PO SCH (08:42)
--- NOTE | 2018-05-14 08:59 | P.PN ---
Subjective Date of Service: 05/14/18 Primary Care Provider: Dr. Lema Chief Complaint: gangrenous diabetic foot Subjective: Improving (Patient doing well. Pain well controlled.) Physical Examination - Vital Signs Temperature: 98 F Blood Pressure: 104/51 Pulse: 88 Respirations: 16 Pulse Ox (%): 95 - Physical Exam General: Alert, In no apparent distress, Oriented x3, Cooperative HEENT: Atraumatic Neck: Supple Respiratory: Clear to auscultation bilaterally, Normal air movement Cardiovascular: Normal pulses, Regular rate/rhythm Gastrointestinal: Normal bowel sounds, Soft and benign, Non-distended Musculoskeletal: No erythema, No tenderness, No warmth Integumentary: Other (Bandage to right lower extremity. Brace in place.) Neurological: Normal speech, Normal strength at 5/5 x4 extr, Normal tone, Normal affect - Studies Microbiology Data (last 24 hrs): 05/08/18 18:00 Blood - Blood Aerobic Blood Culture - Final No growth in 5 days. 05/08/18 18:00 Blood - Blood Anaerobic Blood Culture - Final 05/08/18 17:40 Blood - Blood Aerobic Blood Culture - Final No growth in 5 days. 05/08/18 17:40 Blood - Blood Anaerobic Blood Culture - Final No growth in 5 days. Medications List Reviewed: Yes Assessment & Plan Discharge Plan: Longterm Plan to discharge in: 24 Hours Physician Review Additional Text: Impression: Right foot gangrene with wound culture positive for Klebsiella, Enterococcus and Pseudomonas status post right below-knee amputation Diabetes mellitus type 2, insulin-dependent Hypertension End-stage renal disease on hemodialysis Hyperlipidemia Depression Diabetic neuropathy Plan: Right foot gangrene with wound culture positive for Klebsiella, Enterococcus and Pseudomonas status post right below-knee amputation: Patient doing well. Pain well controlled with adjustment in medication. Surgery consulted infectious disease for recommendations on antibiotics at discharge. Anticipate oral antibiotic therapy at discharge. Patient doing well today. Possible discharge to snf after discussion with infectious disease on what type of antibiotic she will require. Continue current wound care as per surgery. Reassess later for possible discharge. Diabetes mellitus type 2, insulin-dependent: Continue with basal insulin and sliding scale. Hypertension: Continue with medication. Will hold medication if blood pressure low. End-stage renal disease on hemodialysis: Nephrology continues to provide dialysis. Hyperlipidemia: Continue with medication. Depression: Continue with medication. Diabetic neuropathy: Gabapentin was increased. Pain better controlled. Time Spent Managing Pts Care (In Minutes): 55
[2018-05-14] MEDS ORDERED: Levofloxacin 250mg IV 250 MG/50 ML BAG IV SCH (09:00)
[2018-05-14] MEDS: HYDROMORPHONE HCL 1 MG/ML INJ IV PRN ×2 (10:39→21:43)
[2018-05-14] MEDS: TRAMADOL HCL 50 MG TAB PO PRN (13:17)
[2018-05-14] MEDS: MIDODRINE HCL 5 MG TABLET PO PRN (13:24)
[2018-05-14] MEDS ORDERED: D50W 25 GM/50 ML SYRINGE IV PRN (13:28)
[2018-05-14] MEDS ORDERED: GLUCAGON 1 MG/VIAL IM PRN (13:28)
[2018-05-14] MEDS: EPOETIN ALFA 10,000 UNIT/ML VIAL IV SCH (14:08)
[2018-05-14] MEDS: ATORVASTATIN 40 MG TAB PO SCH (19:50)
--- NOTE | 2018-05-14 20:42 | CON ---
INFECTIOUS DISEASES CONSULT History Of Present Illness: This is an 82-year-old female, who comes into the hospital with right fo ot gangrene status post right BKA. The patient is doing well, getting dialyzed. Denies any headache , nausea, vomiting, chest pain, abdominal pain, constipation, diarrhea, fevers. Past Medical History: End-stage renal disease, diabetes mellitus, hypercholesterolemia, depression, reflux, pacemaker, coronary artery disease, peripheral vascular disease, gangrene of the right foot, left BKA, stents to the heart and kidneys, carpal tunnel syndrome, bladder suspension, hysterectomy, left BKA. Social History: Nonsmoker, nondrinker. Family History: Noncontributory. Medication: Vancomycin. See MARs for other medication. Allergies: RAMIPRIL, ACETAMINOPHEN, PLAVIX. Review of Systems: A 10-point review was performed. Physical Examination: General: This is an 82-year-old female, lying in bed, not in any acute cardiopulmonary distress. Vital Signs: Temperature 98.5, pulse 90, respirations 16, blood pressure 114/59. HEENT: Unremarkable. Neck: Supple. Lungs: Basal crackles. Heart: S1, S2. Regular. Abdomen: Soft, nontender. Bowel sounds present. Extremity: Right BKA. Laboratory Data: Shows WBC 11.5, hemoglobin 10.7, platelets are 358. Chemistry shows sodium 136, po tassium 4.3, chloride 102, bicarb 24, BUN 34, creatinine 5.8, glucose is 157. Micro data: The patient has right foot wound Klebsiella pneumoniae, Pseudomonas and Enterococcus [place]. Assessment And Plan: An 82-year-old female status post right foot gangrene and below knee amputation . Wound is in surgical dressing. The patient is getting dialyzed right now. Currently being treate d with Levaquin and vancomycin. Wound with Klebsiella pneumoniae, Pseudomonas aeruginosa, Enterococc us faecalis. We will continue current medications. Leukocytosis most likely will be coming down as patient is going to improve with wound healing and follow the patient at the nursing facility. NF/MODL Voice ID: [id number] Report ID: [id number]
[2018-05-14 21:06] VITALS: O2SAT 98
[2018-05-14] MEDS ORDERED: DIPHENHYDRAMINE 25 MG TAB/CAP PO ONE (21:14)
--- NOTE | 2018-05-14 22:58 | PN ---
Date of Progress Note: 05/14/2018 Chief Complaint: End-stage renal disease, on dialysis. The patient is admitted to the hospital because of lower extremity gangrenous diabetic foot with infe ction. The patient underwent right BKA. She is undergoing wound care and antibiotic therapy. Review of Systems: Denies fever, chills. Physical Examination: Lungs: Clear to auscultation bilaterally. Heart: S1, S2. Abdomen: Soft, benign. Extremities: Dressing in place. Impression And Plan: 1.End-stage renal disease. Continue dialysis 3 times per week. Continue renal diet and p.o. fluid restriction. Monitor daily weight. 2.Renal osteodystrophy. Continue binders. Monitor phosphorus level. 3.Diabetes mellitus. Insulin per sliding scale. Monitor blood glucose, advance p.o. intake as tole rated. 4.Hypoalbuminemia. Increase p.o. protein intake. 5.Hypertension. Hold blood pressure medication if systolic blood pressure is below 110. The patien t is on Coreg and lisinopril. Adjust medication dose accordingly. 6.The patient will require midodrine during dialysis to prevent intradialytic hypotension. Monitor blood pressure closely during dialysis. RINA/MODL Voice ID: [id number] Report ID: [id number]
[2018-05-15] MEDS: HYDROMORPHONE HCL 1 MG/ML INJ IV PRN ×2 (03:32→10:27)
[2018-05-15] MEDS: INSULIN -REGULAR HUMAN 50 UNIT/0.5 ML ML SQ SCH ×3 (07:30→16:30)
[2018-05-15] MEDS: CITALOPRAM 10 MG TABLET PO SCH (08:18)
[2018-05-15] MEDS: CARVEDILOL 3.125 MG TAB PO SCH (08:19)
[2018-05-15] MEDS: GABAPENTIN 300 MG CAP PO SCH (08:19)
[2018-05-15] MEDS: FOLIC ACID PO SCH (08:21)
[2018-05-15] MEDS: [UNRECOGNIZED DRUG - OTHER] PO SCH (08:21)
--- NOTE | 2018-05-15 11:46 | P.PN ---
Subjective Date of Service: 05/15/18 Primary Care Provider: Dr. Lema Chief Complaint: gangrenous diabetic foot Subjective: Other (Pain mildly controlled.) Physical Examination - Vital Signs Temperature: 97 F Blood Pressure: 120/58 Pulse: 84 Respirations: 20 Pulse Ox (%): 97 - Physical Exam General: Alert, In no apparent distress, Oriented x3, Cooperative HEENT: Atraumatic Neck: Supple Respiratory: Clear to auscultation bilaterally, Normal air movement Cardiovascular: Normal pulses, Regular rate/rhythm Gastrointestinal: Normal bowel sounds, Soft and benign, Non-distended Musculoskeletal: No erythema, No tenderness, No warmth Neurological: Normal speech, Normal strength at 5/5 x4 extr, Normal tone - Studies Medications List Reviewed: Yes Assessment & Plan Discharge Plan: [facility] Plan to discharge in: 24 Hours Physician Review Additional Text: Impression: Right foot gangrene with wound culture positive for Klebsiella, Enterococcus and Pseudomonas status post right below-knee amputation Diabetes mellitus type 2, insulin-dependent Hypertension End-stage renal disease on hemodialysis Hyperlipidemia Depression Diabetic neuropathy Plan: Right foot gangrene with wound culture positive for Klebsiella, Enterococcus and Pseudomonas status post right below-knee amputation: Patient doing well. Will increase gabapentin for better pain control. Case discussed with infectious disease. Infectious disease will evaluate patient to consider discharge as early as today back to the [facility]. Will need to arrange for vancomycin to be given during dialysis and the possibility of oral Levaquin to be continued for 1 week. Wound care will also need to be continued. Infectious disease will make a determination today. Will consider discharge if this can be set up. Patient will need to Pain well controlled with adjustment in medication. Surgery consulted infectious disease for recommendations on antibiotics at discharge. Anticipate oral antibiotic therapy at discharge. Patient doing well today. Possible discharge to [facility] after discussion with infectious disease on what type of antibiotic she will require. Continue current wound care as per surgery. Reassess later for possible discharge. Diabetes mellitus type 2, insulin-dependent: Continue with basal insulin and sliding scale. Hypertension: Continue with medication. Will hold medication if blood pressure low. End-stage renal disease on hemodialysis: Nephrology continues to provide dialysis. Hyperlipidemia: Continue with medication. Depression: Continue with medication. Diabetic neuropathy: Gabapentin was increased. Will monitor pain control Time Spent Managing Pts Care (In Minutes): 55
--- NOTE | 2018-05-15 12:05 | PN ---
Subjective: The patient lying in bed. Denies any headache, nausea, vomiting, chest pain, abdominal pain, constipation, or diarrhea. Objective: Vital Signs: Temperature 97, pulse 84, respirations 18, blood pressure 120/58. Lungs: Clear to auscultation. Heart: S1 and S2, regular. Abdomen: Soft, nontender. Bowel sounds present. Extremities: No edema. Right BKA wound is [address] No discharge noted. Laboratory Data: WBC 11.5, hemoglobin 10.7, platelets are 358. Assessment And Plan: Status post below knee amputation of the right leg for gangrenous changes. We will recommend to continue antibiotic, vancomycin IV and Levaquin oral. The patient can be transferr ed to nursing facility. We will follow the patient as needed. Apply Xeroform to the wound site. NF/MODL Voice ID: [id number] Report ID: [id number]
[2018-05-15] MEDS ORDERED: levoFLOXacin 500 MG TAB PO SCH (12:25)
--- NOTE | 2018-05-15 12:27 | P.DS ---
Admission Date: 05/08/18 Discharge Date: 05/15/18 Primary Care Provider: Dr. Lema( I am covering for him while on vacation) Disposition: TRANSFER TO GROUP HOME Discharge Condition: GOOD Reason for Admission: gangrenous diabetic foot Consultations: Surgery-Dr. Rondon Nephrology-Dr. Crowder Infectious Disease-Dr. Cornell Procedures: Venous doppler: COMPARISON: None. TECHNIQUE: Real-time sonographic evaluation of the right lower extremity deep venous systems was performed. FINDINGS: Normal compressibility, flow augmentation, phasic flow and spontaneous flow are identified in the right lower extremity common femoral, superficial femoral, popliteal and posterior tibial veins. No intraluminal filling defects seen. IMPRESSION: No DVT in the right lower extremity. Arterial doppler: COMPARISON: None. TECHNIQUE: Doppler evaluation of the right lower extremity arterial tree performed. Waveforms and velocity values were obtained along with visual inspection. FINDINGS: Right common femoral artery peak systolic velocity was 112 cm/second with superficial femoral velocities ranging from 70-103 cm/second. Popliteal artery was 68 cm/second with posterior tibial artery 19 cm/second and the dorsalis pedis artery 37 cm/second. Prominent arterial tree calcifications are present. No occlusion or 1 focal flow restricting lesion identifiable. Common femoral artery waveform was biphasic with the superficial femoral and popliteal artery is also biphasic. Monophasic waveform seen at the ankle. IMPRESSION: Moderate severity right lower extremity peripheral arterial disease with no occlusion or focal flow restricting lesion. Xray: COMPARISON: Foot Right 2 View dated 01/15/2018; Foot Right 2 View dated 2017 FINDINGS: Very advanced osteopenia is seen which limits bony evaluation. Prominent calcaneal spurs are noted. Vascular calcification is seen. No acute fracture or dislocation. Although bone assessment is limited due to osteopenia, within this limitation, no definitive evidence of osteomyelitis seen Surgery: Date of Procedure: 05/10/2018 Surgeon: Matt Rondon MD Preoperative Diagnosis: Right foot gangrene. Postoperative Diagnosis: Right foot gangrene. Procedure: Right below-knee amputation. Anesthesia: General. Drain: HAZEL drain #10. Estimated Blood Loss: Less than 100 cc. Complications: None. Medical problem list: Right foot gangrene with wound culture positive for Klebsiella, Enterococcus and Pseudomonas complicated with peripheral vascular disease status post right below-knee amputation Diabetes mellitus type 2, insulin-dependent Hypertension End-stage renal disease on hemodialysis Hyperlipidemia Depression Diabetic neuropathy Coronary artery disease Brief History of Present Illness: 82-year-old female presented to the emergency room with increasing right foot pain. Patient with gangrene to the right foot. Patient admitted for treatment. Hospital Course: Patient presented with right foot pain secondary to right foot gangrene with wound culture positive for Klebsiella, Enterococcus and Pseudomonas. Patient was found to have peripheral vascular disease. Patient seen and evaluated by surgery. Surgery recommended intervention. Patient with prior left below-knee amputation. During the course her stay patient received a right below-knee amputation. She tolerated the procedure well. Patient continued with antibiotic therapy. Infectious Disease was consulted for further recommendations after surgery. At discharge she will continue with Levaquin 500 mg every 48 hr and doxycycline 100 mg 3 times a day for a total of 10 days. Patient will return to the assisted with continued wound care. Infectious Disease is to follow the patient at the assisted. Patient with underlying end-stage renal disease on hemodialysis. Patient was monitored closely and receive dialysis during her stay. Nephrology was consulted. At discharge she will continue with dialysis as directed. Patient takes midodrine 5 mg with every dialysis due to low blood pressure. This will need to be monitored closely. Patient with hypertension. Medications adjusted if her stay. Lisinopril has been discontinued. Patient will continue with carvedilol 3.125 mg daily. Recommend to hold blood pressure medication if systolic less than 120. Further adjustment can be done by nephrology. Patient with diabetes mellitus type 2. Patient will continue with mild sliding scale at the assisted. Recommend to maintain blood sugars less 140 fasting and less than 200 after meals. Further adjustment can be done by assisted physician. Patient with hyperlipidemia. Patient will continue with Lipitor 40 mg daily. Patient with depression. Patient will continue with Celexa 10 mg daily. Patient with diabetic neuropathy. After amputation, medications adjusted. At discharge she will continue with gabapentin 300 mg 3 times a day and tramadol 50 mg 3 times a day as needed for pain. Further adjustment can be done by assisted physician. Vital Signs/Physical Exam: Temp Pulse Resp BP Pulse Ox 97 F 84 20 120/58 L 97 05/15/18 11:46 05/15/18 11:46 05/15/18 11:46 05/15/18 11:46 05/15/18 11:46 General: Alert, In no apparent distress, Oriented x3, Cooperative HEENT: Atraumatic Neck: Supple Respiratory: Clear to auscultation bilaterally, Normal air movement Cardiovascular: Normal pulses, Regular rate/rhythm Gastrointestinal: Normal bowel sounds, Soft and benign, Non-distended, No tenderness, No masses, No rebound, No guarding Musculoskeletal: No erythema, No tenderness, No warmth Integumentary: No erythema, No warmth, No cyanosis, Other (Bilateral below-knee amputations.) Neurological: Normal speech, Normal strength at 5/5 x4 extr, Normal tone, Normal affect Laboratory Data at Discharge: WBC 11.5 K/uL (4.3-10.9) H 05/14/18 03:31 Hgb 10.7 g/dL (12.0-15.0) L 05/14/18 03:31 Hct 34.7 % (36.0-45.0) L 05/14/18 03:31 Plt Count 358 K/uL (152-406) 05/14/18 03:31 Sodium 136 mmol/L (136-145) 05/14/18 03:31 Potassium 4.3 mmol/L (3.5-5.1) 05/14/18 03:31 BUN 34 mg/dL (7-18) H 05/14/18 03:31 Creatinine 5.80 mg/dL (0.55-1.3) H* D 05/14/18 03:31 Glucose 94 mg/dL (74-106) 05/14/18 03:31 Phosphorus 2.8 mg/dL (2.5-4.9) 05/09/18 03:33 Magnesium 1.9 mg/dL (1.8-2.4) 05/15/18 06:58 Total Bilirubin 0.5 mg/dL (0.2-1.0) 05/14/18 03:31 AST 15 U/L (15-37) 05/14/18 03:31 ALT 14 U/L (12-78) 05/14/18 03:31 Alkaline Phosphatase 70 U/L (45-117) 05/14/18 03:31 Home Medications: Atorvastatin Calcium [Lipitor] 40 mg PO BEDTIME 05/09/18 Carvedilol [Coreg*] 3.125 mg PO DAILY 05/09/18 Citalopram [Celexa*] 20 mg PO DAILY 05/09/18 Folic Acid/B Complex C No.17 [Dexifol Caplet] 5 mg PO DAILY 05/09/18 Latanoprost/Pf [Latanoprost 0.005% Eye Drop] 1 drop EACH EYE BEDTIME 05/09/18 Doxycycline Hyclate 100 mg PO TID #30 tablet 05/15/18 Gabapentin 300 mg PO TID #90 capsule 05/15/18 Midodrine HCl [Proamatine*] 5 mg PO EVERY HD PRN #30 tab 05/15/18 levoFLOXacin [Levaquin] 500 mg PO SEECOM #6 tab 05/15/18 traMADol HCL [Ultram*] 50 mg PO TID PRN #30 tab 05/15/18 New Medications: Doxycycline Hyclate 100 mg PO TID #30 tablet Gabapentin 300 mg PO TID #90 capsule levoFLOXacin [Levaquin] 500 mg PO SEECOM #6 tab Midodrine HCl [Proamatine*] 5 mg PO EVERY HD PRN #30 tab PRN Reason: hypotension traMADol HCL [Ultram*] 50 mg PO TID PRN #30 tab PRN Reason: Pain Scale 5-7 (Moderate) Patient Discharge Instructions: 1. Patient will follow up with her PCP within 1 week to follow up this hospitalization. 2. Patient presented with right foot pain secondary to right foot gangrene with wound culture positive for Klebsiella, Enterococcus and Pseudomonas. Patient was found to have peripheral vascular disease. Patient seen and evaluated by surgery. Surgery recommended intervention. Patient with prior left below-knee amputation. During the course her stay patient received a right below-knee amputation. She tolerated the procedure well. Patient continued with antibiotic therapy. Infectious Disease was consulted for further recommendations after surgery. At discharge she will continue with Levaquin 500 mg every 48 hr and doxycycline 100 mg 3 times a day for a total of 10 days. Patient will return to the assisted with continued wound care. Infectious Disease is to follow the patient at the assisted. 3. Patient with underlying end-stage renal disease on hemodialysis. Patient was monitored closely and receive dialysis during her stay. Nephrology was consulted. At discharge she will continue with dialysis as directed. Patient takes midodrine 5 mg with every dialysis due to low blood pressure. This will need to be monitored closely. 4. Patient with hypertension. Medications adjusted if her stay. Lisinopril has been discontinued. Patient will continue with carvedilol 3.125 mg daily. Recommend to hold blood pressure medication if systolic less than 120. Further adjustment can be done by nephrology. 5. Patient with diabetes mellitus type 2. Patient will continue with mild sliding scale at the assisted. Recommend to maintain blood sugars less 140 fasting and less than 200 after meals. Further adjustment can be done by assisted physician. 6. Patient with hyperlipidemia. Patient will continue with Lipitor 40 mg daily. 7. Patient with depression. Patient will continue with Celexa 10 mg daily. 8. Patient with diabetic neuropathy. After amputation, medications adjusted. At discharge she will continue with gabapentin 300 mg 3 times a day and tramadol 50 mg 3 times a day as needed for pain. Further adjustment can be done by assisted physician. Diet: ADA Activity: Fall precautions Time spent managing pt's care (in minutes): 55
[2018-05-15] MEDS ORDERED: DOXYCYCLINE 100 MG CAP PO SCH ×2 (14:00→21:00)
[2018-05-15] MEDS ORDERED: GABAPENTIN 300 MG CAP PO SCH (14:00)
--- NOTE | 2018-05-15 15:30 | P.PN ---
Subjective Date of Service: 05/15/18 Primary Care Provider: Dr. Lema( I am covering for him while on vacation) Chief Complaint: gangrenous diabetic foot Subjective: No new changes ESRD with Rt foot infection S/p rt BKA HD TTsat plan to discharge today cleared for discharge from nephrology point of view Abx as per ID Physical Examination - Vital Signs Temperature: 97.9 F Blood Pressure: 115/55 Pulse: 86 Respirations: 18 Pulse Ox (%): 93 - Physical Exam General: In no apparent distress HEENT: Atraumatic Neck: Supple, Without JVD or thyroid abnormality Respiratory: Clear to auscultation bilaterally, Normal air movement Cardiovascular: No edema, Regular rate/rhythm, Normal S1 S2, No gallops, No rubs , No murmurs Integumentary: No rashes - Studies Medications List Reviewed: Yes Assessment And Plan - Current Problems (Diagnosis) (1) Gangrene Onset Date: 04/09/18 Current Visit: Yes Status: Acute (2) ESRD (end stage renal disease) Onset Date: 06/17/14 Current Visit: No Status: Chronic - Plan Assessment And Plan: ESRD on HD via lt AVF HD TTsat renal diet renal dose meds Anemia of CKD cont JESSICA rt foot gangrane S/p rt BKA to be discharged on levaquin and Doxycycline po DM as per primary HTN now on the low side lisinopril and Coreg Dcd will give midodrine during HD
[2018-05-15 17:05] VITALS: BP 112/58; TEMP 97.7
[2018-05-15] MEDS: TRAMADOL HCL 50 MG TAB PO PRN (18:19)
== END 2018-05-15 19:35 | DRG 239 ==
LOC: ER 16:27 → ERHOLD 18:38 → 4TH 21:49
PROVIDERS: ADMIT Family Medicine; ATTEND Family Medicine
PROC: 5A1D70Z Performance of Urinary Filtration, Intermittent, Less than 6 Hours Per Day (ICD-10-PCS; 2018-05-09)
PROC: 0Y6H0Z1 Detachment at Right Lower Leg, High, Open Approach (ICD-10-PCS; principal; 2018-05-10 12:45)
PROC: 5A1D70Z Performance of Urinary Filtration, Intermittent, Less than 6 Hours Per Day (ICD-10-PCS; 2018-05-11)
PROC: 5A1D70Z Performance of Urinary Filtration, Intermittent, Less than 6 Hours Per Day (ICD-10-PCS; 2018-05-14)
DX: E11.52 Type 2 diabetes mellitus with diabetic peripheral angiopathy with gangrene (principal); N18.6 End stage renal disease; I96 Gangrene, not elsewhere classified; I13.11 Hypertensive heart and chronic kidney disease without heart failure, with stage 5 chronic kidney disease, or end stage renal disease; L03.115 Cellulitis of right lower limb; Z79.4 Long term (current) use of insulin; B96.1 Klebsiella pneumoniae [K. pneumoniae] as the cause of diseases classified elsewhere; B95.2 Enterococcus as the cause of diseases classified elsewhere; B96.5 Pseudomonas (aeruginosa) (mallei) (pseudomallei) as the cause of diseases classified elsewhere; E11.22 Type 2 diabetes mellitus with diabetic chronic kidney disease; Z99.2 Dependence on renal dialysis; I25.10 Atherosclerotic heart disease of native coronary artery without angina pectoris; E11.40 Type 2 diabetes mellitus with diabetic neuropathy, unspecified; F32.9 Major depressive disorder, single episode, unspecified; E78.5 Hyperlipidemia, unspecified; Z89.512 Acquired absence of left leg below knee; Z88.6 Allergy status to analgesic agent; Z88.5 Allergy status to narcotic agent; Z88.8 Allergy status to other drugs, medicaments and biological substances; Z95.0 Presence of cardiac pacemaker; Z86.73 Personal history of transient ischemic attack (TIA), and cerebral infarction without residual deficits; I77.9 Disorder of arteries and arterioles, unspecified; G40.909 Epilepsy, unspecified, not intractable, without status epilepticus; E11.21 Type 2 diabetes mellitus with diabetic nephropathy; E11.628 Type 2 diabetes mellitus with other skin complications; E87.6 Hypokalemia; I95.9 Hypotension, unspecified; D63.1 Anemia in chronic kidney disease; Z95.5 Presence of coronary angioplasty implant and graft; N25.0 Renal osteodystrophy; E88.09 Other disorders of plasma-protein metabolism, not elsewhere classified
CPT/HCPCS: 36415; 80048; 80053; 80202; 82962; 83605; 83735; 84100; 84145; 85025; 86140; 87040; 87070; 87077; 87186; 87205; 88307; 90935; 93926; 93971; 96365; 96366; 97110; 97163; 97530; 99285; J1170; J1644; J1650; J2370; J2543; J2704; J3010; J3370; J7030; Q4081

== ENCOUNTER 2018-06-10 11:23 | Emergency (ER) | payer OTHER ==
--- OUTSIDE RECORDS SUMMARY | 2018-06-10 11:27 | XMS REPORT | Clinical Summary ---
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); 03/11/2018 Stanton Ronquillo Anemia, unspecified type MD Shanika Purvis Thuyen T., MD 02/25/2018 Intake Access N/A after 06/09/2017 Family History Medical History Relation Name Comments [...] Taken Blood Pressure 150/86 03/11/2018 7:50 PM YIELD ENGINEER Pulse 84 03/11/2018 7:50 PM YIELD ENGINEER Temperature 36.1 C (97 F) 03/11/2018 7:50 PM YIELD ENGINEER Respiratory Rate 14 03/11/2018 7:50 PM YIELD ENGINEER Oxygen Saturation 96% 03/11/2018 7:50 PM YIELD ENGINEER Inhaled Oxygen Concentration - - Weight 57.7 kg (127 lb 2 oz) 03/08/2018 7:00 AM YIELD ENGINEER Height 160 cm (5' 3") 03/07/2018 12:36 PM YIELD ENGINEER Body Mass Index 22.52 03/08/2018 7:00 AM YIELD ENGINEER Plan of Treatment Health Maintenance Due Date Last Done Comments SHINGLES VACCINES (#1) 1986 65+ PNEUMOCOCCAL VACCINE (1 of 2 - PCV13) 2001 PNEUMOCOCCAL POLYSACCHARIDE VACCINE AGE 65 AND OVER 2001 INFLUENZA VACCINE 10/24/2017 Implants Implanted Type Area Client Care Manager Device Shelf Model / Identifier Expiration Serial / Date Lot Graft Vasclr Acuseal 40cm 6mm - [id number] - [id number] Vascular N/A: N/A [employer] 05/19/2019 [id number] / Implanted: Qty: 1 on 11/08/2016 by Herman Fraga MD Graft [id number] / [id number] Patch Cvs For Vasclr 0.5mm 1x9cm Acuseal - [id number] - [id number] Vascular N/ A: N/A [employer]ORE 01/09/2021 [id number] / Implanted: Qty: 1 on 03/07/2018 by Herman Fraga MD Graft [id number] / [id number] Procedures Procedure Name Priority Date/Time Associated Comments Diagnosis POC GLUCOSE Routine 03/11/2018 5:03 Results for this PM YIELD ENGINEER procedure are in the results section. POC GLUCOSE Routine 03/11/2018 1:26 Results for this PM YIELD ENGINEER procedure are in the results section. HC COMPLETE BLD COUNT Routine 03/11/2018 1:19 Results for this W/AUTO DIFF PM YIELD ENGINEER procedure are in the results section. ESTIMATED GFR Routine 03/11/2018 1:14 Results for this PM YIELD ENGINEER procedure are in the results section. PHOSPHORUS LEVEL Routine 03/11/2018 1:14 Results for this PM YIELD ENGINEER procedure are in the results section. BASIC METABOLIC PANEL Routine 03/11/2018 1:14 Results for this PM YIELD ENGINEER procedure are in the results section. POC GLUCOSE Routine 03/11/2018 11:37 Results for this AM YIELD ENGINEER procedure are in the results section. HEMODIALYSIS Routine 03/11/2018 10:07 AM YIELD ENGINEER POC GLUCOSE Routine 03/11/2018 7:44 Results for this AM YIELD ENGINEER procedure are in the results section. POC GLUCOSE Routine 03/10/2018 8:59 Results for this PM YIELD ENGINEER procedure are in the results section. POC GLUCOSE Routine 03/10/2018 5:21 Results for this PM YIELD ENGINEER procedure are in the results section. POC GLUCOSE Routine 03/10/2018 12:26 Results for this PM YIELD ENGINEER procedure are in the results section. POC GLUCOSE Routine 03/10/2018 7:56 Results for this AM YIELD ENGINEER procedure are in the results section. POC GLUCOSE Routine 03/09/2018 10:08 Results for this PM YIELD ENGINEER procedure are in the results section. POC GLUCOSE Routine 03/09/2018 6:35 Results for this PM YIELD ENGINEER procedure are in the results section. POC GLUCOSE Routine 03/09/2018 5:00 Results for this PM YIELD ENGINEER procedure are in the results section. POC GLUCOSE Routine 03/09/2018 11:51 Results for this AM YIELD ENGINEER procedure are in the results section. HEMODIALYSIS Routine 03/09/2018 10:41 AM YIELD ENGINEER ECHOCARDIOGRAM 2D Routine 03/09/2018 9:01 Results for this COMPLETE W MMODE AM YIELD ENGINEER procedure are in SPECTRAL COLOR DOPPLER the results (95995) section. POC GLUCOSE Routine 03/09/2018 7:42 Results for this AM YIELD ENGINEER procedure are in the results section. HC COMPLETE BLD COUNT Routine 03/09/2018 5:00 Results for this W/AUTO DIFF AM YIELD ENGINEER procedure are in the results section. ESTIMATED GFR Routine 03/09/2018 4:00 Results for this AM YIELD ENGINEER procedure are in the results section. PHOSPHORUS LEVEL Routine 03/09/2018 4:00 Results for this AM YIELD ENGINEER procedure are in the results section. BASIC METABOLIC PANEL Routine 03/09/2018 4:00 Results for this AM YIELD ENGINEER procedure are in the results section. POC GLUCOSE Routine 03/08/2018 10:26 Results for this PM YIELD ENGINEER procedure are in the results section. POC GLUCOSE Routine 03/08/2018 9:24 Results for this PM YIELD ENGINEER procedure are in the results section. TRANSFUSE RED BLOOD Routine 03/08/2018 9:05 CELLS PM YIELD ENGINEER TRANSFUSE RED BLOOD Routine 03/08/2018 7:49 CELLS PM YIELD ENGINEER HEMODIALYSIS Routine 03/08/2018 5:53 PM YIELD ENGINEER POC GLUCOSE Routine 03/08/2018 5:04 Results for this PM YIELD ENGINEER procedure are in the results section. POC GLUCOSE Routine 03/08/2018 3:15 Results for this PM YIELD ENGINEER procedure are in the results section. IR TUNNELED DIALYSIS Routine 03/08/2018 2:53 Results for this CATHETER PLACEMENT PM YIELD ENGINEER procedure are in the results section. POC GLUCOSE Routine 03/08/2018 11:17 Results for this AM YIELD ENGINEER procedure are in the results section. PREPARE RBC Timed 03/08/2018 10:58 Results for this AM YIELD ENGINEER procedure are in the results section. TYPE AND SCREEN Timed 03/08/2018 10:58 Results for this AM YIELD ENGINEER procedure are in the results section. POC GLUCOSE Routine 03/08/2018 7:17 Results for this AM YIELD ENGINEER procedure are in the results section. SMEAR REVIEW Routine 03/08/2018 4:37 Results for this AM YIELD ENGINEER procedure are in the results section. HC COMPLETE BLD COUNT Routine 03/08/2018 4:37 Results for this W/AUTO DIFF AM YIELD ENGINEER procedure are in the results section. ESTIMATED GFR Routine 03/08/2018 4:00 Results for this AM YIELD ENGINEER procedure are in the results section. PHOSPHORUS LEVEL Routine 03/08/2018 4:00 Results for this AM YIELD ENGINEER procedure are in the results section. BASIC METABOLIC PANEL Routine 03/08/2018 4:00 Results for this AM YIELD ENGINEER procedure are in the results section. POC GLUCOSE Routine 03/07/2018 9:55 Results for this PM YIELD ENGINEER procedure are in the results section. POC GLUCOSE Routine 03/07/2018 6:15 Results for this PM YIELD ENGINEER procedure are in the results section. POC GLUCOSE Routine 03/07/2018 4:32 Results for this PM YIELD ENGINEER procedure are in the results section. POC GLUCOSE Routine 03/07/2018 2:32 Results for this PM YIELD ENGINEER procedure are in the results section. UT AN ELECTIVE Routine 03/07/2018 1:32 ENDOTRACHEAL AIRWAY PM YIELD ENGINEER Procedure Note - Gael Coffman MD - 03/07/2018 1:32 PM YIELD ENGINEER ANESTHESIA INTUBATION Performed by: Gael Coffman MD [...] 1 THROMBECTOMY, GRAFT, AV 03/07/2018 1:10 PM YIELD ENGINEER AV graft malfunction, initial encounter (HCC) Case Notes C-ARM, R/S PER RIYA 03/06 K[facility] Special Needs C-ARM SODIUM LEVEL, SYRINGE STAT 03/07/2018 12:40 PM Results for this YIELD ENGINEER procedure are in the results section. POTASSIUM, SYRINGE STAT 03/07/2018 12:40 PM Results for this YIELD ENGINEER procedure are in the results section. HEMOGLOBIN, SYRINGE STAT 03/07/2018 12:40 PM Results for this YIELD ENGINEER procedure are in the results section. GLUCOSE LEVEL, SYRINGE STAT 03/07/2018 12:40 PM Results for this YIELD ENGINEER procedure are in the results section. HEMODIALYSIS Routine 03/07/2018 12:22 PM YIELD ENGINEER POC GLUCOSE Routine 03/07/2018 11:13 AM Results for this YIELD ENGINEER procedure are in the results section. POC GLUCOSE Routine 03/07/2018 7:46 AM Results for this YIELD ENGINEER procedure are in the results section. POC GLUCOSE Routine 03/07/2018 5:13 AM Results for this YIELD ENGINEER procedure are in the results section. POC GLUCOSE Routine 03/07/2018 1:35 AM Results for this YIELD ENGINEER procedure are in the results section. POC GLUCOSE Routine 03/06/2018 9:23 PM Results for this YIELD ENGINEER procedure are in the results section. POC GLUCOSE Routine 03/06/2018 4:05 PM Results for this YIELD ENGINEER procedure are in the results section. POC GLUCOSE Routine 03/06/2018 12:51 PM Results for this YIELD ENGINEER procedure are in the results section. HEMODIALYSIS Routine 03/06/2018 12:08 PM YIELD ENGINEER POC GLUCOSE Routine 03/06/2018 7:30 AM Results for this YIELD ENGINEER procedure are in the results section. CLOSTRIDIUM DIFFICILE TOXIN Routine 03/06/2018 6:20 AM Results for this YIELD ENGINEER procedure are in the results section. HC COMPLETE BLD COUNT Routine 03/06/2018 4:20 AM Results for this W/AUTO DIFF YIELD ENGINEER procedure are in the results section. ESTIMATED GFR Routine 03/06/2018 4:00 AM Results for this YIELD ENGINEER procedure are in the results section. PROTHROMBIN TIME WITH INR Routine 03/06/2018 4:00 AM Results for this YIELD ENGINEER procedure are in the results section. PHOSPHORUS LEVEL Routine 03/06/2018 4:00 AM Results for this YIELD ENGINEER procedure are in the results section. BASIC METABOLIC PANEL Routine 03/06/2018 4:00 AM Results for this YIELD ENGINEER procedure are in the results section. POC GLUCOSE Routine 03/05/2018 10:56 PM Results for this YIELD ENGINEER procedure are in the results section. POC GLUCOSE Routine 03/05/2018 5:37 PM Results for this YIELD ENGINEER procedure are in the results section. POC GLUCOSE Routine 03/05/2018 12:11 PM Results for this YIELD ENGINEER procedure are in the results section. TROPONIN Timed 03/05/2018 8:00 AM Results for this YIELD ENGINEER procedure are in the results section. POC GLUCOSE Routine 03/05/2018 7:27 AM Results for this YIELD ENGINEER procedure are in the results section. ESTIMATED GFR Routine 03/05/2018 4:15 AM Results for this YIELD ENGINEER procedure are in the results section. PROTHROMBIN TIME WITH INR Routine 03/05/2018 4:15 AM Results for this YIELD ENGINEER procedure are in the results section. HC COMPLETE BLD COUNT Routine 03/05/2018 4:15 AM Results for this W/AUTO DIFF YIELD ENGINEER procedure are in the results section. PHOSPHORUS LEVEL Routine 03/05/2018 4:15 AM Results for this YIELD ENGINEER procedure are in the results section. MAGNESIUM LEVEL Routine 03/05/2018 4:15 AM Results for this YIELD ENGINEER procedure are in the results section. BASIC METABOLIC PANEL Routine 03/05/2018 4:15 AM Results for this YIELD ENGINEER procedure are in the results section. TROPONIN Timed 03/05/2018 4:15 AM Results for this YIELD ENGINEER procedure are in the results section. POC GLUCOSE Routine 03/04/2018 9:07 PM Results for this YIELD ENGINEER procedure are in the results section. XR CHEST 1 VW PORTABLE STAT 03/04/2018 7:03 PM Results for this YIELD ENGINEER procedure are in the results section. TYPE AND SCREEN Routine 03/04/2018 6:09 PM Results for this YIELD ENGINEER procedure are in the results section. POC GLUCOSE Routine 03/04/2018 5:58 PM Results for this YIELD ENGINEER procedure are in the results section. TROPONIN Timed 03/04/2018 4:00 PM Results for this YIELD ENGINEER procedure are in the results section. TROPONIN Routine 03/04/2018 2:17 PM Results for this YIELD ENGINEER procedure are in the results section. ECG 12-LEAD Routine 03/04/2018 1:48 PM Results for this YIELD ENGINEER procedure are in the results section. POC GLUCOSE Routine 03/04/2018 1:39 PM Results for this YIELD ENGINEER procedure are in the results section. POC GLUCOSE Routine 03/04/2018 11:53 AM Results for this YIELD ENGINEER procedure are in the results section. US DUPLEX HEMODIALYSIS AVG STAT 03/04/2018 9:20 AM Results for this AVF ACCESS YIELD ENGINEER procedure are in the results section. HEMODIALYSIS Routine 03/04/2018 9:05 AM YIELD ENGINEER POC GLUCOSE Routine 03/04/2018 7:47 AM Results for this YIELD ENGINEER procedure are in the results section. PROTHROMBIN TIME WITH INR Routine 03/04/2018 4:20 AM Results for this YIELD ENGINEER procedure are in the results section. HC COMPLETE BLD COUNT Routine 03/04/2018 4:20 AM Results for this W/AUTO DIFF YIELD ENGINEER procedure are in the results section. ESTIMATED GFR Routine 03/04/2018 4:00 AM Results for this YIELD ENGINEER procedure are in the results section. FERRITIN LEVEL Routine 03/04/2018 4:00 AM Results for this YIELD ENGINEER procedure are in the results section. TOTAL IRON BINDING CAPACITY Routine 03/04/2018 4:00 AM Results for this YIELD ENGINEER procedure are in the results section. PHOSPHORUS LEVEL Routine 03/04/2018 4:00 AM Results for this YIELD ENGINEER procedure are in the results section. MAGNESIUM LEVEL Routine 03/04/2018 4:00 AM Results for this YIELD ENGINEER procedure are in the results section. BASIC METABOLIC PANEL Routine 03/04/2018 4:00 AM Results for this YIELD ENGINEER procedure are in the results section. POC GLUCOSE Routine 03/03/2018 9:09 PM Results for this YIELD ENGINEER procedure are in the results section. POC GLUCOSE Routine 03/03/2018 5:17 PM Results for this YIELD ENGINEER procedure are in the results section. POC GLUCOSE Routine 03/03/2018 11:38 AM Results for this YIELD ENGINEER procedure are in the results section. POC GLUCOSE Routine 03/03/2018 7:23 AM Results for this YIELD ENGINEER procedure are in the results section. ESTIMATED GFR Routine 03/03/2018 4:00 AM Results for this YIELD ENGINEER procedure are in the results section. BASIC METABOLIC PANEL Routine 03/03/2018 4:00 AM Results for this YIELD ENGINEER procedure are in the results section. HC COMPLETE BLD COUNT Routine 03/03/2018 3:30 AM Results for this W/AUTO DIFF YIELD ENGINEER procedure are in the results section. HEMODIALYSIS CATHETER Routine 03/02/2018 8:59 PM ESRD (end Results for this PLACEMENT YIELD ENGINEER stage renal procedure are in disease) (HCC) the results section. POC GLUCOSE Routine 03/02/2018 6:33 PM Results for this YIELD ENGINEER procedure are in the results section. HEMODIALYSIS Routine 03/02/2018 5:35 PM YIELD ENGINEER POC GLUCOSE Routine 03/02/2018 5:26 PM Results for this YIELD ENGINEER procedure are in the results section. POC GLUCOSE Routine 03/02/2018 11:35 AM Results for this YIELD ENGINEER procedure are in the results section. POC GLUCOSE Routine 03/02/2018 7:28 AM Results for this YIELD ENGINEER procedure are in the results section. ESTIMATED GFR Routine 03/02/2018 4:00 AM Results for this YIELD ENGINEER procedure are in the results section. PHOSPHORUS LEVEL Routine 03/02/2018 4:00 AM Results for this YIELD ENGINEER procedure are in the results section. BASIC METABOLIC PANEL Routine 03/02/2018 4:00 AM Results for this YIELD ENGINEER procedure are in the results section. POC GLUCOSE Routine 03/01/2018 9:22 PM Results for this YIELD ENGINEER procedure are in the results section. POC GLUCOSE Routine 03/01/2018 5:40 PM Results for this YIELD ENGINEER procedure are in the results section. POC GLUCOSE Routine 03/01/2018 12:11 PM Results for this YIELD ENGINEER procedure are in the results section. POC GLUCOSE Routine 03/01/2018 7:54 AM Results for this YIELD ENGINEER procedure are in the results section. POC GLUCOSE Routine 03/01/2018 4:34 AM Results for this YIELD ENGINEER procedure are in the results section. HC COMPLETE BLD COUNT Routine 03/01/2018 4:30 AM Results for this W/AUTO DIFF YIELD ENGINEER procedure are in the results section. ESTIMATED GFR Routine 03/01/2018 4:00 AM Results for this YIELD ENGINEER procedure are in the results section. PHOSPHORUS LEVEL Routine 03/01/2018 4:00 AM Results for this YIELD ENGINEER procedure are in the results section. BASIC METABOLIC PANEL Routine 03/01/2018 4:00 AM Results for this YIELD ENGINEER procedure are in the results section. POC GLUCOSE Routine 02/28/2018 9:14 PM Results for this YIELD ENGINEER procedure are in the results section. POC GLUCOSE Routine 02/28/2018 4:04 PM Results for this YIELD ENGINEER procedure are in the results section. HEMODIALYSIS Routine 02/28/2018 12:09 PM YIELD ENGINEER POC GLUCOSE Routine 02/28/2018 11:34 AM Results for this YIELD ENGINEER procedure are in the results section. ECHOCARDIOGRAM 2D COMPLETE Routine 02/28/2018 9:13 AM Results for this W MMODE SPECTRAL COLOR YIELD ENGINEER procedure are in DOPPLER ([id number]) the results section. POC GLUCOSE Routine 02/28/2018 9:09 AM Results for this YIELD ENGINEER procedure are in the results section. CV INTRACARDIAC Routine 02/28/2018 8:48 AM Results for this ECHOCARDIOGRAM YIELD ENGINEER procedure are in the results section. CV PERICARDIOCENTESIS Routine 02/28/2018 8:48 AM Results for this YIELD ENGINEER procedure are in the results section. PROTEIN, MISC FLUID Routine 02/28/2018 8:35 AM Results for this YIELD ENGINEER procedure are in the results section. LDH, MISC FLUID Routine 02/28/2018 8:35 AM Results for this YIELD ENGINEER procedure are in the results section. GLUCOSE LEVEL, MISC FLUID Routine 02/28/2018 8:35 AM Results for this YIELD ENGINEER procedure are in the results section. CELL COUNT AND Routine 02/28/2018 8:35 AM Results for this DIFFERENTIAL, BODY FLUID YIELD ENGINEER procedure are in the results section. CYTOLOGY Routine 02/28/2018 6:32 AM Results for this (NON-GYNECOLOGICAL) REQUEST YIELD ENGINEER procedure are in the results section. ESTIMATED GFR Routine 02/28/2018 3:50 AM Results for this YIELD ENGINEER procedure are in the results section. PHOSPHORUS LEVEL Routine 02/28/2018 3:50 AM Results for this YIELD ENGINEER procedure are in the results section. MAGNESIUM LEVEL Routine 02/28/2018 3:50 AM Results for this YIELD ENGINEER procedure are in the results section. BASIC METABOLIC PANEL Routine 02/28/2018 3:50 AM Results for this YIELD ENGINEER procedure are in the results section. HC COMPLETE BLD COUNT Routine 02/28/2018 3:50 AM Results for this W/AUTO DIFF YIELD ENGINEER procedure are in the results section. PARTIAL THROMBOPLASTIN TIME Routine 02/28/2018 3:50 AM Results for this (PTT) YIELD ENGINEER procedure are in the results section. PROTHROMBIN TIME WITH INR Routine 02/28/2018 3:50 AM Results for this YIELD ENGINEER procedure are in the results section. POC GLUCOSE Routine 02/27/2018 9:20 PM Results for this YIELD ENGINEER procedure are in the results section. POC GLUCOSE Routine 02/27/2018 6:06 PM Results for this YIELD ENGINEER procedure are in the results section. POC GLUCOSE Routine 02/27/2018 12:08 PM Results for this YIELD ENGINEER procedure are in the results section. POC GLUCOSE Routine 02/27/2018 9:44 AM Results for this YIELD ENGINEER procedure are in the results section. POC GLUCOSE Routine 02/27/2018 8:14 AM Results for this YIELD ENGINEER procedure are in the results section. HC COMPLETE BLD COUNT Routine 02/27/2018 4:20 AM Results for this W/AUTO DIFF YIELD ENGINEER procedure are in the results section. ESTIMATED GFR Routine 02/27/2018 4:00 AM Results for this YIELD ENGINEER procedure are in the results section. PHOSPHORUS LEVEL Routine 02/27/2018 4:00 AM Results for this YIELD ENGINEER procedure are in the results section. BASIC METABOLIC PANEL Routine 02/27/2018 4:00 AM Results for this YIELD ENGINEER procedure are in the results section. POC GLUCOSE Routine 02/26/2018 10:28 PM Results for this YIELD ENGINEER procedure are in the results section. POC GLUCOSE Routine 02/26/2018 5:50 PM Results for this YIELD ENGINEER procedure are in the results section. POC GLUCOSE Routine 02/26/2018 2:30 PM Results for this YIELD ENGINEER procedure are in the results section. HEMODIALYSIS Routine 02/26/2018 2:04 PM YIELD ENGINEER HEPATITIS B SURFACE ANTIGEN STAT 02/26/2018 2:00 PM Results for this YIELD ENGINEER procedure are in the results section. US DUPLEX HEMODIALYSIS AVG STAT 02/26/2018 12:15 PM Results for this AVF ACCESS YIELD ENGINEER procedure are in the results section. PROTHROMBIN TIME WITH INR Routine 02/26/2018 10:20 AM Results for this YIELD ENGINEER procedure are in the results section. HEMOGLOBIN A1C Routine 02/26/2018 10:20 AM Results for this YIELD ENGINEER procedure are in the results section. XR CHEST 1 VW PORTABLE STAT 02/26/2018 9:39 AM Results for this YIELD ENGINEER procedure are in the results section. POC GLUCOSE Routine 02/26/2018 9:10 AM Results for this YIELD ENGINEER procedure are in the results section. ECG 12-LEAD STAT 02/26/2018 8:53 AM Results for this YIELD ENGINEER procedure are in the results section. ECHOCARDIOGRAM 2D COMPLETE STAT 02/26/2018 8:17 AM Results for this W MMODE SPECTRAL COLOR YIELD ENGINEER procedure are in DOPPLER ([id number]) the results section. POC GLUCOSE Routine 02/26/2018 4:57 AM Results for this YIELD ENGINEER procedure are in the results section. PREPARE RBC Timed 02/26/2018 1:50 AM YIELD ENGINEER ESTIMATED GFR STAT 02/26/2018 1:50 AM Results for this YIELD ENGINEER procedure are in the results section. TYPE AND SCREEN Timed 02/26/2018 1:50 AM Results for this YIELD ENGINEER procedure are in the results section. PROTHROMBIN TIME WITH INR STAT 02/26/2018 1:50 AM Results for this YIELD ENGINEER procedure are in the results section. COMPREHENSIVE METABOLIC STAT 02/26/2018 1:50 AM Results for this PANEL YIELD ENGINEER procedure are in the results section. HC COMPLETE BLD COUNT STAT 02/26/2018 1:50 AM Results for this W/AUTO DIFF YIELD ENGINEER procedure are in the results section. after 06/09/2017 Results POC glucose (03/11/2018 5:03 PM YIELD ENGINEER)Only the most recent of67 resultswithin the time period is included. POC glucose 236 (H) 65 - 99 mg/dL [facility] Comment: [facility] Notified RN No Action Needed Meter ID: [id number] Software Engineer: Pk Santillan Performing Organization Address City/State/Zipcode Phone Number [facility] DEPARTMENT OF PATHOLOGY AND [address] [place] [address] GENOMIC MEDICINE [facility] [address] [place] [phone] CBC with platelet and differential (03/11/2018 1:19 PM YIELD ENGINEER)Only the most recent of11 resultswithin the time period is included. WBC 11.05 (H) 4.50 - 11.00 k/uL [facility] RBC 3.55 (L) 4.20 - 5.50 m/uL [facility] HGB 10.0 (L) 12.0 - 16.0 g/dL [facility] HCT 31.6 (L) 37.0 - 47.0 % [facility] MCV 89.0 82.0 - 100.0 fL [facility] MCH 28.2 27.0 - 34.0 pg [facility] MCHC 31.6 31.0 - 37.0 g/dL [facility] RDW - SD 58.7 (H) 37.0 - 55.0 fL [facility] MPV 11.9 8.8 - 13.2 fL [facility] Platelet count 246 150 - 400 k/uL [facility] Nucleated RBC 0.00 /100 WBC [facility] Neutrophils 78.5 (H) 39.0 - 69.0 % [facility] Lymphocytes 9.2 (L) 25.0 - 45.0 % [facility] Monocytes 6.8 0.0 - 10.0 % [facility] Eosinophils 4.0 0.0 - 5.0 % [facility] Basophils 0.5 0.0 - 1.0 % [facility] Immature granulocytes 1.0Comment: "Immature 0.0 - 1.0 % [facility] granulocytes" HOSPITAL (promyelocytes, myelocytes, metamyelocytes) Specimen Blood Performing Organization Address City/State/Zipcode Phone Number [facility] DEPARTMENT OF PATHOLOGY AND [address] [place] [address] GENOMIC MEDICINE [facility] [address] [place] [address] Estimated GFR (03/11/2018 1:14 PM YIELD ENGINEER)Only the most recent of12 resultswithin the time period is included. Estimated GFR 11 (A) mL/min/1.73 m2 [facility] Comment: HOSPITAL CatergoryUnitsInterpretation G1 >=90 Normal or high G2 60-89Mildly decreased [id number] to moderately decreased [id number] to severely decreased G4 15-29Severely decreased G5 <15Kidney failure The eGFR was calculated using the Chronic Kidney Disease Epidemiology Collaboration (CKD-EPI) equation. Interpretation is based on recommendations of the National Kidney Foundation-Kidney Disease Outcomes Quality Initiative (NKF-KDOQI) published in 2014. Specimen Plasma specimen Performing Organization Address City/[facility] Cent[facility]ode Phone Number [facility] DEPARTMENT OF PATHOLOGY AND [address] [place] [address] Phosphorus level (03/11/2018 1:14 PM YIELD ENGINEER)Only the most recent of10 resultswithin the time period is included. Phosphorus 2.8 2.4 - 4.5 mg/dL [facility] Specimen Plasma specimen Performing Organization Address [facility] Phone Number [facility] DEPARTMENT OF PATHOLOGY AND [address] [place] [address] Basic metabolic panel (03/11/2018 1:14 PM YIELD ENGINEER)Only the most recent of11 resultswithin the time period is included. Sodium 135 135 - 148 mEq/L [facility] Potassium 4.0 3.5 - 5.0 mEq/L [facility] Chloride 95 (L) 98 - 112 mEq/L [facility] CO2 27 24 - 31 mEq/L [facility] Anion gap 13@ANIO 7 - 15 mEq/L [facility] BUN 28 (H) 8 - 23 mg/dL [facility] Creatinine 3.75 (H) 0.50 - 0.90 mg/dL [facility] Glucose 186 (H) 65 - 99 mg/dL [facility] Calcium 9.3 8.8 - 10.2 mg/dL [facility] Specimen Plasma specimen Performing Organization Address [facility] Centercout Phone Number [facility] DEPARTMENT OF PATHOLOGY AND [address] [place] [address] Echocardiogram complete w contrast and 3D if needed (03/09/2018 9:01 AM YIELD ENGINEER) Narrative Performed At [facility] Echocardiography Report [address], [place] [address] Pat.Name:YEYO COLLINS [facility].ID:[id number] .Date: 03/09/2018Refer.MD:SCOTT PENA MD Exam Time: 9:04:00 AMStudy Type:Routine Echo Height:63inWeight: 127lb BSA: 1.6 z6KFCAjw:1935,82Y Sex: FEMALEBP:140/62 HR:86 bpmSonogrphr: PARTHA Wallace Pat. Stat.:Inpatient Room:D 1005 Study Status:Final Echo Event ID:[id number] Order ID:[id number] Reason for Study:Pericardial effusion History / Clinical:Congestive [...] RAPof 15 mmHg. MEASUREMENTS: 2D Parasternal Long [place] Ds4.5 cmAo An2.4 cm LVIDd4.1 cmIndex2.6 cm/m Ao Rtd 3 cm Index1.9 cm/m LVIDs2.4 cmLV Ybza762.4 g(87-129) LV%fs 41.5 % LVM Mpmzr857.4 g/m2 IVSd 1.3 cmRWT0.7 LVPWd1.4 cmLVOT 1.8 cm LA Sng Plane LA Area 27.5 cm2(8.8-23.4) LA Vol90.4 ml Index56.5 ml/m LA LngAx 6.9 cm DOPPLER AV For Flow/ZHENG AV pkVel 219.1 cm/s (100-170) AV AC/ET 0.3 AV mnVel 154.4 cm/Marilyn TVI44.5 cm AV pkPG 19.2 mmHgAVpkAcRt 6985.6 cm/s2 AV Mean G 11.2 mmHgAV CvSf395.3 cm/s2 AV AC 88 msec (83-118) AV [...] Radiology Results In - 03/09/2018 4:57 PM YIELD ENGINEER Echocardiography Report [address] [address], [place] [address] Pat.Name: YEYO COLLINS Pat.ID: [id number] .Date: 03/09/2018 Refer.MD: SCOTT PENA MD Exam Time: 9:04:00 AM Study Type:Routine Echo Height: 63in Weight: 127lb BSA: 1.6 m2 Age: 3 1935,82Y Sex: FEMALE BP: 140/62 HR: 86 bpm Sonogrphr: PARTHA Wallace Pat. Stat.:Inpatient Room: D 1005 Study Status:Final Echo Event ID:[id number] Order ID: [id number] Reason for Study:Pericardial effusion History / Clinical:Congestive [...] of 15 mmHg. MEASUREMENTS: 2D Parasternal Long [place] LA Ds 4.5 cm Ao An 2.4 [...] LA LngAx 6.9 cm DOPPLER AV For Flow/ZHEGN AV pkVel 219.1 cm/s (100-170) AV AC/ET [...] City/State/Zipcode Phone Number [facility] [address] [place] [address] Transfuse RBC (03/08/2018 9:05 PM YIELD ENGINEER)Only the most recent of3 resultswithin the time period is included.IR Tunneled Dialysis Catheter Placement (03/08/2018 2:53 PM YIELD ENGINEER) Narrative Performed At Procedure: Placement of tunneled dialysis catheter [facility] Clinical History: End-stage renal disease Sedation: Versed and fentanyl were utilized for monitored conscious sedation during the procedure. The patient was transferred to the recovery room at the end of the procedure for further monitoring. Yqmk-st-zxxo time 20 minutes Anesthesia: Local Radiation dose: [...] the right atrium under fluoroscopy. A 4 [address] Lucian catheter was placed. Local anesthesia was then administered from the infraclavicular region to the initial puncture site. The 28 cm Palindrome dialysis catheter was brought through the tunnel. An Amplatz guidewire was advanced through the 4 [place] Lucian catheter and after dilatation, the dialysis catheter [...] above. Blood Loss: Less than 5 mL [facility]-[id number] Procedure Note Hm Interface, Radiology Results Incoming - 03/08/2018 3:04 PM YIELD ENGINEER Procedure: Placement of tunneled dialysis catheter Clinical History: End-stage renal disease Sedation: Versed and fentanyl were utilized for monitored conscious sedation during the procedure. The patient was transferred to the recovery room at the end of the procedure for further monitoring. Akid-er-kltf time 20 minutes Anesthesia: Local Radiation dose: [...] the right atrium under fluoroscopy. A 4 St Lucian catheter was placed. Local anesthesia was then administered from the infraclavicular region to the initial puncture site. The 28 cm Palindrome dialysis catheter was brought through the tunnel. An Amplatz guidewire was advanced through the 4 St Lucian catheter and after dilatation, the dialysis catheter [...] above. Blood Loss: Less than 5 mL [facility]-[id number] Performing Organization Address City/State/[facility] Cent[facility]out Phone Number [facility] [address] [place] [address] Prepare RBC, 2 Units (03/08/2018 10:58 AM YIELD ENGINEER) Product name Red Blood Cells 1, [facility] Unit number [id number] [facility] Product code [id number] [facility] Dispense status Transfused [facility] Blood expiration date [facility] Blood type code 6200 [facility] Blood type A POSITIVE [facility] Product name Red Blood Cells , [facility] Unit number [id number] [facility] Product code [id number] [facility] Dispense status Transfused [facility] Blood expiration date [facility] Blood type code 6200 [facility] Blood type A POSITIVE [facility] Performing Organization Address City/[facility] Centercode Phone Number [facility] DEPARTMENT OF PATHOLOGY AND [address] [place] [address] [address] Type and screen (03/08/2018 10:58 AM YIELD ENGINEER)Only the most recent of3 resultswithin the time period is included. ABO grouping A [facility] Rh type POS [facility] Antibody screen (gel) NEG [facility] Specimen Blood Performing Organization Address City/[facility]ercode Phone Number [facility] DEPARTMENT OF PATHOLOGY AND [address] [place] [address] [address] Smear review (03/08/2018 4:37 AM YIELD ENGINEER) Platelet slide review Alex adequate [facility] Anisocytosis Moderate [facility] Polychromasia Moderate [facility] Schistocytes Occasional [facility] Ovalocytes Moderate [facility] Raleigh cells Moderate (A) [facility] Acanthocytes Occasional [facility] Performing Organization Address City/[facility] Centercout Phone Number [facility] DEPARTMENT OF PATHOLOGY AND [address] [place] [address] [address] Sodium level, syringe (03/07/2018 12:40 PM YIELD ENGINEER) Sodium, syringe 130 (L) 135 - 148 mEq/L [facility] Specimen Blood Performing Organization Address City/[facility]out Phone Number [facility] DEPARTMENT OF PATHOLOGY AND [address] [place] [address] [address] Potassium, syringe (03/07/2018 12:40 PM YIELD ENGINEER) Potassium, syringe 4.6 3.5 - 5.0 mEq/L [facility] Specimen Blood Performing Organization Address City/[facility]ercode Phone Number [facility] DEPARTMENT OF PATHOLOGY AND [address] [place] [address] [address] Hemoglobin, syringe (03/07/2018 12:40 PM YIELD ENGINEER) Hemoglobin, syringe 7.5 (L) 12.0 - 16.0 g/dL [facility] Specimen Blood Performing Organization Address [facility]ercout Phone Number [facility] DEPARTMENT OF PATHOLOGY AND [address] [place] [phone] [place] [address] Glucose level, syringe (03/07/2018 12:40 PM YIELD ENGINEER) Glucose, syringe 132 (H) 65 - 99 mg/dL [facility] Specimen Blood Performing Organization Address [facility] Phone Number [facility] DEPARTMENT OF PATHOLOGY AND [address] [place] [address] C difficile toxin (03/06/2018 6:20 AM YIELD ENGINEER) Clostridium difficile No Clostridium difficle toxin present [facility] Comment: HOSPITAL Specimen Information Specimen Source: Stool Specimen Site: Nonpreserved Specimen Stool - Nonpreserved Performing Organization Address [facility] Phone Number [facility] DEPARTMENT OF PATHOLOGY AND [address] [place] [address] Prothrombin time with INR (03/06/2018 4:00 AM YIELD ENGINEER)Only the most recent of6 resultswithin the time period is included. Prothrombin time 14.2 11.5 - 14.5 sec [facility] INR 1.1 [facility] Comment: HOSPITAL The International Normalized Ratio (INR) is a therapeutic monitoring tool for patients who are stable on oral anticoagulant therapy. An INR of 2.0-3.0 is suggested for deep vein thrombosis/pulmonary embolism. Specimen Blood Performing Organization Address [facility] Phone Number [facility] DEPARTMENT OF PATHOLOGY AND [address] [place] [address] Troponin (03/05/2018 8:00 AM YIELD ENGINEER)Only the most recent of4 resultswithin the time period is included. Troponin <0.30 0.00 - 0.30 ng/mL [facility] Comment: 0.30 - 1.49 ng/mlMay indicate increased risk of acute coronary syndrome. >=1.5 ng/mlConsistent with acute myocardial infarction. The diagnostic value of a single normal or non-diagnostic result is questionable.Serial samples at 2-6 hour intervals are required to rule out acute myocardial injury. Specimen Plasma specimen Performing Organization Address City/[facility]/Zipcode Phone Number [facility] DEPARTMENT OF PATHOLOGY AND [address] [place] [address] [address] Magnesium level (03/05/2018 4:15 AM YIELD ENGINEER)Only the most recent of3 resultswithin the time period is included. Magnesium 1.7 1.6 - 2.4 mg/dL [facility] Specimen Plasma specimen Performing Organization Address [facility] Centercode Phone Number [facility] DEPARTMENT OF PATHOLOGY AND [address] [place] [address] [address] XR Chest 1 Vw Portable (03/04/2018 7:03 PM YIELD ENGINEER)Only the most recent of2 resultswithin the time [...] pleural thickening is unchanged. No pneumothorax. [id number] Procedure Note Interface, Radiology Results Incoming - 03/04/2018 7:16 PM YIELD ENGINEER EXAMINATION: XR CHEST 1 VW PORTABLE CLINICAL [...] pleural thickening is unchanged. No pneumothorax. [facility][id number] Performing Organization Address [facility]/Zipcode Phone Number [facility] [address] [place] [address] ECG 12 lead (03/04/2018 1:48 PM YIELD ENGINEER)Only the most recent of2 resultswithin the time period is included. Ventricular rate 75 [facility] Atrial rate 75 [facility] UT interval 204 [facility] QRSD interval 76 [...] inversion less evident in Anterolateral leads-QT has [facility] MUSE lengthened- 5: 22:27 PM Narrative Performed At Performing Organization Address City/State/Zipcode Phone Number [facility] MUSE [address] duplex hemodialysis avg avf access (03/04/2018 9:20 AM YIELD ENGINEER)Only the most recent of2 resultswithin the time period is included. Narrative Performed At [facility] Vascular Ultrasound Laboratory AV Graft - Fistula Report [address] [address], [address]Name:YEYO COLLINS.ID:[id number] .Date: 03/04/2018Refer.MD:SCOTT PENA MD Exam Time: 8:11:00 AMStudy Type:AV Graft - Fistula Height:63inWeight: 123lb BSA: 1.57 m2 DOBAge:1935,82Y Sex: FEMALESonogrphr: Aubree Villela RVT Pat. Stat.:Inpatient Room:[address] TapeVol: , CPT - 4: 01258 Echo Event ID:[id number] Order ID:[id number] Reason for Study:AV-graft without thrill and buit.History [...] BrachialProximal-third 82 cm/sec Mid-third47 cm/sec Distal-third40 cm/sec Ejyhisggcve47ci/sec,0cm/sec AV-GraftJaxta0 cm/sec Arterial pyml5xk/sec Venous yqmm8gt/sec Grqlimzcceq60ex/sec Axillary VeinDistal-jkecf62fo/sec Subclavian Vein Mid-vzytk76po/sec VOLUME FLOW: Qxxecwlf28 cc/min 83 cc/min PRELIMINARY FINDINGS: 1. Occluded [...] Radiology Results In - 03/04/2018 2:[address] [facility] Vascular Ultrasound Laboratory AV Graft - Fistula Report [address] [place] [address] Pat.Name: YEYO COLLINS Pat.ID: [id number] .Date: 03/04/2018 Refer.: SCOTT PENA MD Exam Time: 8:11:00 AM Study Type:AV Graft - Fistula Height: 63in Weight: 123lb BSA: 1.57 m2 Age: 4 1935,82Y Sex: FEMALE Sonogrphr: Aubree Villela RVT Pat. Stat.:Inpatient Room: [address] Tape Vol: AMOR, CPT - 4: 33696 Echo Event ID:[id number] Order ID: [id number] Reason for Study:AV-graft without thrill and buit. [...] RPVI Performing Organization Address City/State/Zipcode Phone Number [facility] [address] [place] [address] Total iron binding capacity (03/04/2018 4:00 AM YIELD ENGINEER) Iron level 36 (L) 37 - 145 ug/dL [facility] Iron binding capacity 118 (L) 200 - 400 ug/dL [facility] % Saturation 30.5 15.0 - 38.0 % [facility] Specimen Plasma specimen Performing Organization Address City/[facility]out Phone Number [facility] DEPARTMENT OF PATHOLOGY AND [address] [place] [address] Ferritin level (03/04/2018 4:00 AM YIELD ENGINEER) Ferritin level 978 (H) 13 - 150 ng/mL [facility] Specimen Plasma specimen Performing Organization Address [facility] Phone Number [facility] DEPARTMENT OF PATHOLOGY AND [address] [place] [address] HEMODIALYSIS CATHETER PLACEMENT (03/02/2018 8:59 PM YIELD ENGINEER) Narrative Performed At Chava Hill MD 03/03/2018 12:44 PM Hemodialysis catheter placement Date/Time: 03/02/2018 8:59 PM Performed by: Rodriguez Edwards MD Authorized by: Chava Hill MD Consent: Consent obtained:Verbal and written Consent given by:Patient Risks discussed:Arterial puncture, incorrect placement, nerve damage, infection and bleeding Alternatives discussed:Delayed treatment Spearfish protocol: Procedure explained and questions answered to [...] and 3D if needed (02/28/2018 9:13 AM YIELD ENGINEER) Narrative Performed At [facility] Echocardiography Report [address], [address] [address] Pat.Name:YEYO COLLINS [facility].ID:[id number] .Date: 02/28/2018 Refer.MD:SCOTT PENA MD Exam Time: 8:01:00 AMStudy Type:Routine Echo Height:63inWeight: 151lb BSA: 1.72 m2 DOBAge:1935,82Y Sex: FEMALEBP:126/62 HR:86 bpmSonogrphr: PARTHA Grant Pat. Stat.:Inpatient Room:[address] [address] Study Status:Final Echo Event ID:[id number] Order ID:[id number] Reason for Study:Periocardiocentesis History / Clinical:Congestive Heart [...] Radiology Results In - 02/28/2018 4:[address] [facility] Echocardiography Report [address]Name: YEYO COLLINS Pat.ID: [id number] .Date: 02/28/2018 Refer.MD: SCOTT PENA MD Exam Time: 8:01:00 AM Study Type:Routine Echo Height: 63in Weight: 151lb BSA: 1.72 m2 Age: 4 1935,82Y Sex: FEMALE BP: 126/62 HR: 86 bpm Sonogrphr: PARTHA Grant Pat. 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 [facility] Micropuncture catheter used to obtain access to pericardial space and exchange for pericardial drain. Performing Organization Address City/State/Zipcode Phone Number [facility] [address] [place] [address] Cell count and differential, body fluid (02/28/2018 8:35 AM YIELD ENGINEER) Misc fluid type Pericardial [facility] Color, fluid Red [facility] Appearance, fluid Hazy [facility] RBC, fluid 170,000 /CMM [facility] Nucleated cells, fluid 137 /CMM [facility] Fluid mononuclear cell See Diff [facility] Neutrophils, fluid 40 % [facility] Lymphocytes, fluid 23 % [facility] Eosinophils, fluid 5 % [facility] Macrophages, fluid 32 % [facility] Specimen Fluid Narrative Performed At Pericardial fluid [facility] DEPARTMENT OF PATHOLOGY AND GENOMIC MEDICINE Performing Organization Address City/[facility]ercode Phone Number [facility] DEPARTMENT OF PATHOLOGY AND [address] [place] [address] GENOMIC MEDICINE [address] [address] Protein, misc fluid (02/28/2018 8:35 AM YIELD ENGINEER) Fluid type Pericardial [facility] Protein, fluid 4.3 g/dL [facility] Comment: Analysis performed on Mickey 8000 analyzer. This is not an approved methodology for this specimen type;accuracy and clinical significance uncertain. Specimen Fluid Narrative Performed At Pericardial fluid [facility] DEPARTMENT OF PATHOLOGY AND GENOMIC MEDICINE Performing Organization Address City/[facility] Centercode Phone Number [facility] DEPARTMENT OF PATHOLOGY AND [address] [place] [address] [address] [address] LDH, misc fluid (02/28/2018 8:35 AM YIELD ENGINEER) Fluid type Pericardial [facility] LDH, fluid 348 U/L [facility] Comment: Analysis performed on Mickey 8000 analyzer. This is not an approved methodology for this specimen type;accuracy and clinical significance uncertain. Specimen Fluid Narrative Performed At Pericardial fluid [facility] DEPARTMENT OF PATHOLOGY AND GENOMIC MEDICINE Performing Organization Address City/[facility]/Zipcode Phone Number [facility] DEPARTMENT OF PATHOLOGY AND [address] [place] [address] [facility] MEDICINE [address] [address] Glucose level, misc fluid (02/28/2018 8:35 AM YIELD ENGINEER) Fluid type Pericardial [facility] Glucose, fluid 126 mg/dL [facility] Comment: Analysis performed on Mickey 8000 analyzer. This is not an approved methodology for this specimen type;accuracy and clinical significance uncertain. Specimen Fluid Narrative Performed At Pericardial fluid [facility] DEPARTMENT OF PATHOLOGY AND GENOMIC MEDICINE Performing Organization Address City/[facility]/Zipcode Phone Number [facility] DEPARTMENT OF PATHOLOGY AND [address] [place] [address] Cytology (non-gynecological) request (02/28/2018 6:32 AM YIELD ENGINEER) [facility] DEPARTMENT OF PATHOLOGY AND GENOMIC MEDICINE Cytology See link below for PDF [facility] DEPARTMENT OF (non-gynecological) report Lab Report PATHOLOGY AND GENOMIC MEDICINE Result status This is Final Report [facility] DEPARTMENT OF for [id number] PATHOLOGY AND GENOMIC MEDICINE Performing Organization Address City/[facility]out Phone Number [facility] DEPARTMENT OF PATHOLOGY AND [address] [place] [address] Partial thromboplastin time, activated (02/28/2018 3:50 AM YIELD ENGINEER) PTT 35.1 23.0 - 36.0 sec [facility] Comment: PTT therapeutic range for unfractionated heparin is 61.0-112.0 seconds which corresponds to Anti-Xa 0.3-0.7 U/ml. Specimen Blood Performing Organization Address City/[facility] Centercode Phone Number [facility] DEPARTMENT OF PATHOLOGY AND [address] [place] [address] Hepatitis B surface antigen (02/26/2018 2:00 PM YIELD ENGINEER) Hepatitis B surface Ag Non-reactive Non-reactive [facility] Specimen Blood Performing Organization Address City/[facility]/Zipcode Phone Number [facility] DEPARTMENT OF PATHOLOGY AND [address] [place] [address] Hemoglobin A1c (02/26/2018 10:20 AM YIELD ENGINEER) Hemoglobin A1C 5.5 4.0 - 5.6 % [facility] Comment: HbA1c cutoffs for diagnosing diabetes: 4.0% - 5.6%=normal 5.7% - 6.4%=increased risk for diabetes (prediabetes) >=6.5%=diabetes Goals for glycemic control (ADA 2016) < 7.0%Target for non adults with diabetes. More or less stringent targets may be appropriate for individual patients. <7.5% Target for Children and adolescents with type 1 diabetes. Specimen Blood Performing Organization Address City/State/Zipcode Phone Number [facility] DEPARTMENT OF PATHOLOGY AND [address] [place] [address] [place] [address] Echocardiogram complete w contrast and 3D if needed (02/26/2018 8:17 AM YIELD ENGINEER) Narrative Performed At [facility] Echocardiography Report [address] [place] [address] Pat.Name:YEYO COLLINS.ID:[id number] .Date: 02/26/2018 Refer.MD:HERMAN FRAGA MD Exam Time: 7:27:00 AMStudy Type:Routine Echo Height:63inWeight: 151lb BSA: 1.72 m2 DOBAge:1935,82Y Sex: FEMALEBP:141/71 HR:87 bpm Sonogrphr: Laya Coffman RDCS, ISABELT Pat. Stat.:Inpatient Room:[address] Study Status:Final Echo Event ID:[id number] Order ID:[id number] Reason for Study:Pre-op clearance History / Clinical:Congestive [...] RAPof 10 mmHg. MEASUREMENTS: 2D Parasternal Long Gordon LVOT 1.9 cmLA Ds3.9 cm LVIDd2.9 cmIndex1.7 cm/m Ao Rtd 3.1 cm Index1.8 cm/m LVIDs1.9 cmLV Fjlt106.4 g(87-129) LV%fs 35.7 % LVM Afnzl178.1 g/m2 IVSd 1.6 cmRWT1.3 LVPWd1.9 cm LA Sng Plane LA Area 25.8 cm2(8.8-23.4) LA Vol84.5 ml Index49.1 ml/m LA LngAx 6.2 cm Aorta Ao Asc 3.7 cm (2.1-3.4) DOPPLER AV For Flow/ZHENG AV pkVel 227 cm/s (100-170) AV AC/ET 0.3 AV mnVel 148 cm/Marilyn TVI41.9 cm AV pkPG 20.6 mmHgAVpkAcRt 4164.3 cm/s2 AV Mean G 10.6 mmHgAV KiAn580.8 cm/s2 AV AC 83 msec (83-118) AV Area1.4 cm2(3-5) AV ET283 msec LVOT For Flow LVOT Area2.8 cm2 LVOT SV 60.5 ml TWORnqBsl269.7 cm/sHR77.1 bpm LVOTpkPG 4.1 mmHgLVOT CO4.7 l/min LVOTmnPG 2.4 mmHgLVOT CI2.7 l/m/m2 LVOT TVI21.3 cm MV For Flow/Valve Assess MV Dec T 859 msecMV Mean G3.9 mmHg MV pkVel 172.7 cm/sMV TVI33.2 cm MV pkPG 11.9 mmHg Signed 02/26/2018 02:41 PM Marilee King M.D. Procedure Note Interface, Radiology Results In - 02/26/2018 2:[address] [facility] Echocardiography Report [id number] [place] [address] Pat.Name: YEYO COLLINS Pat.ID: [id number] .Date: 02/26/2018 Refer.MD: HERMAN FRAGA MD Exam Time: 7:27:00 AM Study Type:Routine Echo Height: 63in Weight: 151lb BSA: 1.72 m2 Age: 3 1935,82Y Sex: FEMALE BP: 141/71 HR: 87 bpm Sonogrphr: Laya Coffman RDCS, RVT Pat. Stat.:Inpatient Room: [address] Study Status:Final Echo Event ID:[id number] Order ID: [id number] Reason for Study:Pre-op clearance History / Clinical:Congestive [...] of 10 mmHg. MEASUREMENTS: 2D Parasternal Long [place] LVOT 1.9 cm LA Ds 3.9 cm [...] Address City/State/Zipcode Phone Number [facility] [address] [place] [address] Comprehensive metabolic panel (02/26/2018 1:50 AM YIELD ENGINEER) Sodium 138 135 - 148 mEq/L [facility] Potassium 3.5 3.5 - 5.0 mEq/L [facility] Chloride 100 98 - 112 mEq/L [facility] CO2 26 24 - 31 mEq/L [facility] Anion gap 12@ANIO 7 - 15 mEq/L [facility] BUN 12 8 - 23 mg/dL [facility] Creatinine 3.07 (H) 0.50 - 0.90 mg/dL [facility] Glucose 110 (H) 65 - 99 mg/dL [facility] Calcium 9.5 8.8 - 10.2 mg/dL [facility] Protein 6.6 6.3 - 8.3 g/dL [facility] Comment: [facility] [place] 4.6-7.0 g/dL 1 week 4.4-7.6 g/dL 7 months-1year5.1-7.3 g/dL 1-2 years5.6-7.5 g/dL >3 years6.0-8.0 g/dL 18-150 6.3-8.3 g/dL Albumin 2.7 (L) 3.5 - 5.0 g/dL [facility] A/G ratio 0.7 0.7 - 3.8 [facility] Alkaline phosphatase 64 35 - 104 U/L [facility] AST 20 10 - 35 U/L [facility] ALT 8 5 - 50 U/L [facility] Total bilirubin 0.4 0.0 - 1.2 mg/dL [facility] Specimen Plasma specimen Performing Organization Address City/State/Zipcode Phone Number [facility] DEPARTMENT OF PATHOLOGY AND [address] [place] [address] GENOMIC MEDICINE [facility] [address] [place] [address] after 06/09/2017 Insurance Payer Benefit Plan / Group Subscriber ID Type Phone Address MEDICARE MEDICARE PART A AND B xxxxxxxxxx Medicare [place], [place] MEDICAID MEDICAID xxxxxxxxx Medicaid Advance Directives Patient has advance care planning documents on file. For more information, please contact:[address] [address]
--- OUTSIDE RECORDS SUMMARY | 2018-06-10 11:28 | XMS REPORT | Clinical Summary ---
:1935 Author Organization [facility] Address [address] [place] [address] Care Team Providers Name Role Phone Anastacio [...] tablet FA-vit Take by mouth. 0 Active Bcomp&G-eoyyatuf-u inc 3-70-15 mg-mcg-mg Tab citalopram Take 20 [...] ESRD (end stage renal disease) on dialysis ([facility]) Jerman Perera MD 03/23/2018 Surgery Marley Lambert & EVELIN Verdugo MD 03/23/2018 Travel after 06/09/2017 Social History Tobacco Use Types Packs/Day Years [...] Taken Blood Pressure 167/72 03/29/2018 11:31 AM WATER PUMPING STATION ENGINEER Pulse 65 03/29/2018 11:31 AM WATER PU[employer]ING STATION ENGINEER Temperature 36.8 C (98.3 F) 03/29/2018 11:31 AM WATER PUMPING STATION ENGINEER Respiratory Rate 18 03/29/2018 11:31 AM WATER PUMPING STATION ENGINEER Oxygen Saturation 100% 03/29/2018 11:31 AM WATER PUMPING STATION ENGINEER Inhaled Oxygen Concentration 21% 03/25/2018 10:36 PM WATER PUMPING STATION ENGINEER Weight 59.4 kg (130 lb 15.3 oz) 03/26/2018 9:55 AM WATER PUMPING STATION ENGINEER Height 162 cm (5' 3.78") 03/23/2018 5:16 PM WATER PU[employer]ING STATION ENGINEER Body Mass Index 22.63 03/26/2018 9:55 AM WATER PUMPING STATION ENGINEER Plan of Treatment Not on file Procedures Procedure Name Priority Date/Time Associated Diagnosis Comments VASCULAR DIAGRAM 05/16/2018 4:42 PM -SCAN W[employer] ENGINEER REPORT OF PROCEDURE 04/18/2018 10:30 AM - ENDOSCOPY SCAN [employer]ING [employer]ATION ENGINEER CARDIAC CATH REPORT 04/18/2018 10:30 AM - SCAN W[employer]ING [employer]ATION ENGINEER RHYTHM STRIP - SCAN 04/18/2018 10:30 AM WATER PU[employer]ING STATION ENGINEER VASCULAR DIAGRAM 04/18/2018 10:30 AM -SCAN W[employer]ING STATION ENGINEER POCT-GLUCOSE METER Routine 03/29/2018 12:48 PM Results for this WATER [employer]ING [employer]ATION ENGINEER procedure are in the results section. POCT-GLUCOSE METER Routine 03/29/2018 7:48 AM Results for this W[employer] STATION ENGINEER procedure are in the results section. ECG 12-LEAD Routine 03/29/2018 7:20 AM WATER PUMPING STATION ENGINEER Procedure Note - Interface, External Ris In - 03/29/2018 5:44 PM WATER PU[employer]ING STATION ENGINEER Ventricular Rate 65 BPM Atrial Rate 65 BPM P-R Interval 222 ms QRS Duration 78 ms Q-T Interval 430 ms QTC Calculation(Bazett) 447 ms P [place] 95 degrees R [place] -24 degrees T [place] 144 degrees Sinus rhythm with 1st degree A-V block Inferior infarct (cited on or before 24-MAR-2018) Anterior infarct (cited on or before 24-MAR-2018) ST & T wave abnormality, consider lateral ischemia Abnormal ECG When compared with ECG of 29-MAR-2018 07:19, No significant change was found ECG 12-LEAD STAT 03/29/2018 7:20 AM WATER PU[employer]ING STATION ENGINEER ECG 12-LEAD Routine 03/29/2018 7:19 AM WATER PU[employer]ING STATION ENGINEER Procedure Note - Interface, External Ris In - 03/29/2018 5:44 PM WATER PU[employer]ING STATION ENGINEER Ventricular Rate 65 BPM Atrial Rate 65 BPM P-R Interval 220 ms QRS Duration 84 ms Q-T Interval 428 ms QTC Calculation(Bazett) 445 ms P [place] 85 degrees R [place] -20 degrees T [place] 141 degrees Sinus rhythm with 1st degree A-V block Inferior infarct (cited on or before 24-MAR-2018) Anterior infarct (cited on or before 24-MAR-2018) T wave abnormality, consider lateral ischemia ACUTE IN / STEMI Consider right ventricular involvement in acute inferior infarct Abnormal ECG When compared with ECG of 28-MAR-2018 06:45, No significant change was found ECG 12-LEAD Routine 03/29/2018 7:19 AM WATER PU[employer]ING STATION ENGINEER MAGNESIUM Routine 03/29/2018 7:10 AM WATER PUMPING STATION ENGINEER BASIC METABOLIC PANEL (7) Routine 03/29/2018 7:10 AM WATER PUMPING STATION ENGINEER CBC (HEMOGRAM ONLY) Routine 03/29/2018 7:10 AM WATER PUMPING STATION ENGINEER POCT-GLUCOSE METER Routine 03/28/2018 10:48 PM WATER PUMPING STATION ENGINEER POCT-GLUCOSE METER Routine 03/28/2018 6:52 PM WATER PUMPING STATION ENGINEER POCT-GLUCOSE METER Routine 03/28/2018 3:32 PM WATER PU[employer]ING STATION ENGINEER POCT-GLUCOSE METER Routine 03/28/2018 2:03 PM WATER PUMPING STATION ENGINEER C. DIFFICILE GDH TOXIN Routine 03/28/2018 10:26 AM WATER PUMPING STATION ENGINEER POCT-GLUCOSE METER Routine 03/28/2018 10:12 AM WATER PUMPING STATION ENGINEER ECG 12-LEAD Routine 03/28/2018 6:45 AM WATER PUMPING STATION ENGINEER Procedure Note - Interface, External Ris In - 03/28/2018 10:27 AM WATER PUMPING STATION ENGINEER Ventricular Rate 66 BPM Atrial Rate 66 BPM P-R Interval 224 ms QRS Duration 84 ms Q-T Interval 406 ms QTC Calculation(Bazett) 425 ms P [place] -4 degrees R [place] 3 degrees T [place] 140 degrees Sinus rhythm with 1st degree A-V block Inferior infarct (cited on or before 24-MAR-2018) Cannot rule out Anterior infarct , age undetermined ST & T wave abnormality, consider lateral ischemia Abnormal ECG When compared with ECG of 27-MAR-2018 06:56, No significant change was found ECG 12-LEAD Routine 03/28/2018 6:45 AM WATER PUMPING STATION ENGINEER MAGNESIUM Routine 03/28/2018 4:46 AM WATER PUMPING STATION ENGINEER BASIC METABOLIC PANEL (7) Routine 03/28/2018 4:46 AM WATER PUMPING STATION ENGINEER CBC (HEMOGRAM ONLY) Routine 03/28/2018 4:46 AM WATER PUMPING STATION ENGINEER POCT-GLUCOSE METER Routine 03/27/2018 9:10 PM WATER PUMPING STATION ENGINEER POCT-GLUCOSE METER Routine 03/27/2018 5:37 PM WATER PUMPING STATION ENGINEER POCT-GLUCOSE METER Routine 03/27/2018 1:19 PM WATER PU[employer]ING STATION ENGINEER POCT-GLUCOSE METER Routine 03/27/2018 9:55 AM WATER PUMPING STATION ENGINEER IR AV SHUNT/FISTULAGRAM Routine 03/27/2018 9:30 AM WATER PUMPING STATION ENGINEER ECG 12-LEAD Routine 03/27/2018 6:56 AM WATER PUMPING STATION ENGINEER Procedure Note - Interface, External Ris In - 03/27/2018 7:04 AM WATER PUMPING STATION ENGINEER Ventricular Rate 64 BPM Atrial Rate 64 BPM P-R Interval 230 ms QRS Duration 82 ms Q-T Interval 430 ms QTC Calculation(Bazett) 443 ms P [place] 95 degrees R [place] -18 degrees T [place] 137 degrees Sinus rhythm with 1st degree A-V block Inferior infarct (cited on or before 24-MAR-2018) ST & T wave abnormality, consider lateral ischemia Abnormal ECG When compared with ECG of 25-MAR-2018 10:48, No significant change was found ECG 12-LEAD Routine 03/27/2018 6:56 AM WATER PUMPING STATION ENGINEER MAGNESIUM Routine 03/27/2018 5:50 AM WATER PUMPING STATION ENGINEER BASIC METABOLIC PANEL (7) Routine 03/27/2018 5:50 AM WATER PUMPING STATION ENGINEER CBC (HEMOGRAM ONLY) Routine 03/27/2018 5:50 AM WATER PUMPING STATION ENGINEER POCT-GLUCOSE METER Routine 03/26/2018 10:12 PM WATER PUMPING STATION ENGINEER POCT-GLUCOSE METER Routine 03/26/2018 5:43 PM WATER PUMPING STATION ENGINEER PHOSPHORUS Routine 03/26/2018 2:55 PM WATER PUMPING STATION ENGINEER POCT-GLUCOSE METER Routine 03/26/2018 2:53 PM WATER PUMPING STATION ENGINEER HEMODIALYSIS INPATIENT Routine 03/26/2018 2:00 PM WATER PU[employer]ING STATION ENGINEER HEPATITIS B SURFACE ANTIGEN Routine 03/26/2018 9:58 AM WATER PUMPING STATION ENGINEER POCT-GLUCOSE METER Routine 03/26/2018 9:03 AM WATER PUMPING STATION ENGINEER MAGNESIUM Routine 03/26/2018 4:36 AM WATER PUMPING STATION ENGINEER BASIC METABOLIC PANEL (7) Routine 03/26/2018 4:36 AM WATER PUMPING STATION ENGINEER CBC (HEMOGRAM ONLY) Routine 03/26/2018 4:36 AM WATER PUMPING STATION ENGINEER PROTHROMBIN TIME/INR Routine 03/26/2018 4:36 AM WATER PUMPING STATION ENGINEER APTT Routine 03/26/2018 1:03 AM WATER PUMPING STATION ENGINEER POCT-GLUCOSE METER Routine 03/25/2018 8:48 PM WATER PUMPING STATION ENGINEER APTT Routine 03/25/2018 6:11 PM WATER PUMPING STATION ENGINEER POCT-GLUCOSE METER Routine 03/25/2018 5:18 PM WATER PUMPING STATION ENGINEER POCT-GLUCOSE METER Routine 03/25/2018 12:04 PM WATER PUMPING STATION ENGINEER APTT Routine 03/25/2018 11:42 AM WATER PUMPING STATION ENGINEER ECG 12-LEAD Routine 03/25/2018 10:48 AM WATER PUMPING STATION ENGINEER Procedure Note - Interface, External Ris In - 03/25/2018 11:00 AM WATER PUMPING STATION ENGINEER Ventricular Rate 62 BPM Atrial Rate 62 BPM P-R Interval 224 ms QRS Duration 82 ms Q-T Interval 428 ms QTC Calculation(Bazett) 434 ms P [place] 93 degrees R [place] -5 degrees T [place] 134 degrees Sinus rhythm with 1st degree A-V block Inferior infarct , possibly acute T wave abnormality, consider lateral ischemia ACUTE IN / STEMI Consider right ventricular involvement in acute inferior infarct Abnormal ECG ECG 12-LEAD STAT 03/25/2018 10:48 AM WATER PUMPING STATION ENGINEER ECHOCARDIOGRAM REPORT - SCAN 03/25/2018 9:51 AM WATER PUMPING STATION ENGINEER POCT-GLUCOSE METER Routine 03/25/2018 8:02 AM WATER PUMPING STATION ENGINEER APTT Routine 03/25/2018 4:20 AM WATER PUMPING STATION ENGINEER IRON, TIBC, % SAT. (WITHOUT Routine 03/25/2018 4:20 AM WATER PUMPING STATION ENGINEER Results for this FERRITIN) procedure are in the results section. MAGNESIUM Routine 03/25/2018 4:20 AM WATER PUMPING STATION ENGINEER BASIC METABOLIC PANEL (7) Routine 03/25/2018 4:20 AM WATER PUMPING STATION ENGINEER CBC (HEMOGRAM ONLY) Routine 03/25/2018 4:20 AM WATER PUMPING STATION ENGINEER PROTHROMBIN TIME/INR Routine 03/25/2018 4:20 AM WATER PUMPING STATION ENGINEER APTT Routine 03/24/2018 10:35 PM WATER PUMPING STATION ENGINEER POCT-GLUCOSE METER Routine 03/24/2018 9:32 PM WATER PUMPING STATION ENGINEER POCT-GLUCOSE METER Routine 03/24/2018 5:41 PM WATER PUMPING STATION ENGINEER 2D ECHO W/ DOPPLER Routine 03/24/2018 5:33 PM WATER PUMPING STATION ENGINEER Results for this (CW/PW/COLOR) procedure are in the results section. APTT Routine 03/24/2018 12:47 PM WATER PUMPING STATION ENGINEER POCT-GLUCOSE METER Routine 03/24/2018 12:44 PM WATER PUMPING STATION ENGINEER ECG 12-LEAD Routine 03/24/2018 8:54 AM WATER PUMPING STATION ENGINEER Procedure Note - Interface, External Ris In - 03/24/2018 8:57 AM WATER PUMPING STATION ENGINEER Ventricular Rate 69 BPM Atrial Rate 69 BPM P-R Interval 238 ms QRS Duration 76 ms Q-T Interval 402 ms QTC Calculation(Bazett) 430 ms P [place] -11 degrees R [place] -3 degrees T [place] 134 degrees Sinus rhythm with 1st degree A-V block Inferior infarct , age undetermined Possible Anterolateral infarct , age undetermined Abnormal ECG ECG 12-LEAD Routine 03/24/2018 8:54 AM Results for this WATER PU[employer]ING STATION ENGINEER procedure are in the results section. POCT-GLUCOSE METER Routine 03/24/2018 7:31 AM Results for this WATER PU[employer]ING STATION ENGINEER procedure are in the results section. CBC W/PLT COUNT & AUTO Routine 03/24/2018 5:11 AM Results for this DIFFERENTIAL WATER [employer]ING STATION ENGINEER procedure are in the results section. APTT Routine 03/24/2018 5:11 AM Results for this WATER PUMPING STATION ENGINEER procedure are in the results section. PROTHROMBIN TIME/INR Routine 03/24/2018 5:11 AM Results for this WATER PU[employer]ING STATION ENGINEER procedure are in the results section. CBC W/PLT COUNT & AUTO Routine 03/24/2018 5:11 AM Results for this DIFFERENTIAL W[employer]ING STATION ENGINEER procedure are in the results section. PHOSPHORUS Routine 03/24/2018 5:11 AM Results for this WATER PU[employer]ING STATION ENGINEER procedure are in the results section. MAGNESIUM Routine 03/24/2018 5:11 AM Results for this WATER [employer]ING STATION ENGINEER procedure are in the results section. COMPREHENSIVE Routine 03/24/2018 5:11 AM Results for this METABOLIC PANEL [employer]ATION ENGINEER procedure are in the results section. CBC (HEMOGRAM ONLY) Routine 03/24/2018 5:11 AM Results for this WATER PU[employer]ING STATION ENGINEER procedure are in the results section. POCT-GLUCOSE METER Routine 03/23/2018 10:37 PM Results for this WATER PU[employer]ING STATION ENGINEER procedure are in the results section. APTT Routine 03/23/2018 8:43 PM Results for this WATER PUMPING STATION ENGINEER procedure are in the results section. PLATELET COUNT Routine 03/23/2018 8:43 PM Results for this WATER [employer]ING STATION ENGINEER procedure are in the results section. LIPID PANEL Routine 03/23/2018 8:43 PM Results for this WATER PU[employer]ING STATION ENGINEER procedure are in the results section. B-TYPE NATRIURETIC Routine 03/23/2018 8:43 PM Results for this FACTOR (BNP) [employer]ATION ENGINEER procedure are in the results section. TROPONIN I Routine 03/23/2018 8:43 PM Results for this WATER [employer]ING STATION ENGINEER procedure are in the results section. L CATH & PCI 03/23/2018 5:[address] elevation W[employer]ING STATION ENGINEER myocardial infarction (STEMI), unspecified artery (HCC) after 06/09/2017 Results VASCULAR DIAGRAM -SCAN (05/16/2018 4:42 PM WATER PUMPING STATION ENGINEER)Only the most recent of2 resultswithin the time period is included. Narrative Performed At EKG-SCANNED (04/18/2018 10:30 AM WATER PUMPING STATION ENGINEER) Narrative Performed At CARDIAC CATH REPORT - SCAN (04/18/2018 10:30 AM WATER PUMPING STATION ENGINEER) Narrative Performed At RHYTHM STRIP - SCAN (04/18/2018 10:30 AM WATER PUMPING STATION ENGINEER) Narrative Performed At POC-Glucose meter (03/29/2018 12:48 PM WATER PUMPING STATION ENGINEER)Only the most recent of24 resultswithin the time period is included. POC-Glucose Meter 148 (H)Comment: TESTED AT 70 - 110 mg/dL [facility] [address] [facility] [id number] Specimen Blood Performing Organization Address City/State/Zipcode Phone Number [facility] [address] [place] [id number] CENTER ECG 12 lead (03/29/2018 7:20 AM WATER PUMPING STATION ENGINEER)Only the most recent of6 resultswithin the time period is included. Narrative Performed At Ventricular Rate 65 BPM GE MUSE Atrial Rate 65 BPM P-R Interval 222 ms QRS Duration 78 ms Q-T Interval 430 ms QTC Calculation(Bazett) 447 ms P [place] 95 degrees R [place] -24 degrees T [place] 144 degrees Sinus rhythm with 1st degree [...] External Ris In - 03/30/2018 11:47 AM WATER PUMPING STATION ENGINEER Ventricular Rate 65 BPM Atrial Rate 65 BPM P-R Interval 222 ms QRS Duration 78 ms Q-T Interval 430 ms QTC Calculation(Bazett) 447 ms P [place] 95 degrees R [place] -24 degrees T [place] 144 degrees Sinus rhythm with 1st degree A-V block Inferior infarct (cited on or before 24-MAR-2018) Anterior infarct (cited on or before 24-MAR-2018) ST & T wave abnormality, consider lateral ischemia Abnormal ECG When compared with ECG of 29-MAR-2018 07:19, No significant change was found Confirmed by MD SON MAJID ([id number]) on 03/30/2018 11:47:27 AM Performing Organization Address City/State/[facility] Cent[facility] Phone Number GE Orlebar Brown CBC (Hemogram only) (03/29/2018 7:10 AM WATER PUMPING STATION ENGINEER)Only the most recent of6 resultswithin the time period is included. WBC 11.9 (H) 3.5 - 10.5 K/L [facility] RBC 3.64 (L) 3.93 - 5.22 M/L [facility] Hemoglobin 10.3 (L) 11.2 - 15.7 GM/DL [facility] Hematocrit 32.7 (L) 34.1 - 44.9 % [facility] MCV 89.8 79.4 - 94.8 fL [facility] MCH 28.3 25.6 - 32.2 pg [facility] MCHC 31.5 (L) 32.2 - 35.5 GM/DL [facility] RDW 17.7 (H) 11.7 - 14.4 % [facility] Platelets 359 150 - 450 K/CU MM [facility] MPV 10.1 9.4 - 12.3 fL [facility] nRBC 0 0 - 0 /100 WBC [facility] Specimen Blood Performing Organization Address City/[facility]/Zipcode Phone Number [facility] [address] [place] [phone] CENTER Magnesium (03/29/2018 7:10 AM WATER PUMPING STATION ENGINEER)Only the most recent of6 resultswithin the time period is included. Magnesium 1.8 1.6 - 2.6 mg/dL [facility] Specimen Blood Narrative Performed At Please draw today if not done already. [facility] Performing Organization Address City/[facility]/Zipcode Phone Number [facility] [address] [place] [phone] CENTER Basic metabolic panel (03/29/2018 7:10 AM WATER PUMPING STATION ENGINEER)Only the most recent of5 resultswithin the time period is included. Sodium 135 (L) 136 - 145 meq/L [facility] Potassium 4.0 3.5 - 5.1 meq/L [facility] Chloride 103 98 - 107 meq/L [facility] CO2 24 22 - 29 meq/L [facility] BUN 23 (H) 7 - 21 mg/dL [facility] Creatinine 2.91 (H) 0.57 - 1.25 mg/dL [facility] Glucose 108 (H) 70 - 105 mg/dL [facility] Calcium 9.1 8.4 - 10.2 mg/dL [facility] EGFR 16Comment: ESTIMATED GFR IS mL/min/1.73 sq m [facility] NOT ACCURATE CREATININE [facility] CLEARANCE IN PREDICTING GLOMERULAR FILTRATION RATE. ESTIMATED GFR IS NOT APPLICABLE FOR DIALYSIS PATIENTS. Specimen Blood Narrative Performed At Please draw today if not done already. [facility] Performing Organization Address City/State/Zipcode Phone Number [facility] [address] [place] [address] [phone] [place] Clostridium difficile GDH Toxin (03/28/2018 10:26 AM WATER PUMPING STATION ENGINEER) C. Difficle Toxin Negative Negative [facility] C. Difficile GDH Antigen NegativeComment: No Negative [facility] indication of Clostridium [facility]ICAL CENTER difficile infection and no colonization. Discontinue enteric isolation and therapy. Specimen Stool - Rectum Narrative Performed At Testing performed by [employer] Rapid Cassette [facility] Assay.For GDH, published sensitivity of the assay is 98.7% compared to cytotoxicity testing.For Toxin AB, published sensitivity is 87.8% and specificity 99.4% compared to cytotoxicity testing. Verification of kit performance was done by the [facility] Microbiology Lab prior to clinical use. Performing Organization Address [facility] Centercode Phone Number [place] [phone] [place] [address] [place] IR AV Shunt/Fistulagram (03/27/2018 9:30 AM WATER PUMPING STATION ENGINEER) Narrative Performed At [facility]AL [facility] Procedure: Attempted declotting of left upper [...] MD Report Verified Date/Time:03/27/2018 16:13:07 Reading Location: [place] [address] Angio Body Reading Room Procedure Note Interface, External Ris In - 03/27/2018 4:15 PM WATER PUMPING STATION ENGINEER FINAL REPORT Procedure: Attempted declotting of left [...] Report Verified Date/Time: 03/27/2018 16:13:07 Reading Location: [place] [address] Angio Body Reading Room Performing Organization Address City/[facility] Centercode Phone Number [facility] Phosphorus (03/26/2018 2:55 PM WATER PU[employer]ING STATION ENGINEER)Only the most recent of2 resultswithin the time period is included. Phosphorus 2.0 (L) 2.3 - 4.7 mg/dL [facility] Specimen Blood - Arm, Right Performing Organization Address City/[facility]/Zipcode Phone Number [place] [phone] [place] [address] [phone] CENTER HEMODIALYSIS INPATIENT (03/26/2018 2:00 PM W[employer]ING STATION ENGINEER) Narrative Performed At Zina Strange RN 03/26/20187:25 [...] Hepatitis B surface antigen (03/26/2018 9:58 AM WATER PU[employer]ING STATION ENGINEER) hepatitis B Surface Ag NON-REACTIVE Nonreactive [facility] Specimen Blood Performing Organization Address [facility] Centercoky Phone Number [address] [address] [phone] CENTER Prothrombin time/INR (03/26/2018 4:36 AM WATER PUMPING STATION ENGINEER)Only the most recent of3 resultswithin the time period is included. Protime 14.8 (H) 11.7 - 14.7 seconds [facility] INR 1.2 <=5.9 [facility] Specimen Blood Narrative Performed At RECOMMENDED COUMADIN/WARFARIN INR THERAPY [facility] RANGES STANDARD DOSE: 2.0 - 3.0 Includes: PROPHYLAXIS for venous thrombosis, systemic embolization; TREATMENT for venous thrombosis and/or pulmonary embolus. HIGH RISK: Target INR is 2.5-3.5 for patients with mechanical heart valves. Performing Organization Address [facility] Cent[facility]oky Phone Number [address] [address] CENTER aPTT (03/26/2018 1:03 AM WATER PUMPING STATION ENGINEER)Only the most recent of8 resultswithin the time period is included. PTT 60.2 (H) 22.5 - 36.0 seconds [facility] Specimen Blood Performing Organization Address [facility] Centercode Phone Number [facility] [address] [address] [phone] [place] [address] ECHOCARDIOGRAM REPORT - SCAN (03/25/2018 9:51 AM WATER PUMPING STATION ENGINEER) Narrative Performed At Iron, TIBC, % sat. (without ferritin) (03/25/2018 4:20 AM WATER PU[employer]ING STATION ENGINEER) Iron 29.0 (L) 40.0 - 160.0 ug/dL [facility] TIBC 123 (L) 250 - 450 ug/dL [facility] Iron % Saturation 24 20 - 55 % [facility] Specimen Blood - Arm, Right Performing Organization Address City/State/Zipcode Phone Number [address] [address] [place] Transthoracic 2D echo w/ doppler (cw/pw/color) (03/24/2018 5:33 PM WATER PUMPING STATION ENGINEER) Ejection Fraction [facility] Narrative Performed At Transthoracic Echocardiography Report (TTE) [facility] Demographics Patient Name WIX, NORMADate of Study 03/24/2018 OPAL [id number] GenderFemale Visit Number [id number] Unknown [id number] Room Number 6214 Number Date of Birth1935Referring Physician Age82 year(s)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 Oeaq-ek-sdjglide aortic stenosis. Estimated peak systolic PA pressure [...] right- and le ft- coronary cups(s). Mi gu-mf-kgsglfyu aortic stenosis. 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 Ejqe-rl-bogzjeae aortic stenosis. Estimated peak systolic PA pressure [...] involves the right- and left- coronary cups(s). Pzbx-oe-kxvlddnb aortic stenosis. AoV area at rest by [...] City/State/Zipcode Phone Number [facility] MKCKESSON [facility] CBC with platelet count + automated diff (03/24/2018 5:11 AM WATER PUMPING STATION ENGINEER) WBC 10.9 (H) 3.5 - 10.5 K/L [facility] RBC 3.53 (L) 3.93 - 5.22 M/L [facility] Hemoglobin 9.9 (L) 11.2 - 15.7 GM/DL [facility] Hematocrit 31.7 (L) 34.1 - 44.9 % [facility] MCV 89.8 79.4 - 94.8 fL [facility] MCH 28.0 25.6 - 32.2 pg [facility] MCHC 31.2 (L) 32.2 - 35.5 GM/DL [facility] RDW 17.8 (H) 11.7 - 14.4 % [facility] Platelets 365 150 - 450 K/CU MM [facility] MPV 10.4 9.4 - 12.3 fL [facility] nRBC 0 0 - 0 /100 WBC [facility] % Neutros 75 % [facility] % Lymphs 12 % [facility] % Monos 9 % [facility] % Eos 3 % [facility] % Baso 0 % [facility] # Neutros 8.15 (H) 1.56 - 6.13 K/L [facility] # Lymphs 1.32 1.18 - 3.74 K/L [facility] # Monos 0.94 (H) 0.24 - 0.36 K/L [facility] # Eos 0.32 0.04 - 0.36 K/L [facility] # Baso 0.04 0.01 - 0.08 K/L [facility] Immature Granulocytes-Relative 1 0 - 1 % [facility] Specimen Blood Performing Organization Address City/[facility]/Zipcode Phone Number [facility] [address] [place] [address] [place] Comprehensive metabolic panel (03/24/2018 5:11 AM WATER [employer]) Protein, Total 6.4 6.0 - 8.3 gm/dL [facility] Albumin 2.8 (L) 3.5 - 5.0 g/dL [facility] Alkaline Phosphatase 108 40 - 150 U/L [facility] Total Bilirubin 0.4 0.2 - 1.2 mg/dL [facility] Sodium 129 (L) 136 - 145 meq/L [facility] Potassium 3.3 (L) 3.5 - 5.1 meq/L [facility] Chloride 99 98 - 107 meq/L [facility] CO2 21 (L) 22 - 29 meq/L [facility] BUN 47 (H) 7 - 21 mg/dL [facility] Creatinine 3.80 (H) 0.57 - 1.25 mg/dL [facility] Glucose 103 70 - 105 mg/dL [facility] Calcium 9.6 8.4 - 10.2 mg/dL [facility] AST 46 (H) 5 - 34 U/L [facility] ALT 49 6 - 55 U/L [facility] EGFR Comment: INSUFFICIENT mL/min/1.73 sq m [facility] CL[facility]ICAL DATA TO [facility] CALCULATE ESTIMATED GFR. Specimen Blood Performing Organization Address City/State/Zipcode Phone Number [address] [address] [place] Troponin I (03/23/2018 8:43 PM [employer]) Troponin I 1.89 (HH) 0.00 - 0.03 ng/mL [facility] Specimen Blood Narrative Performed At Troponin I (TnI) levels must be interpreted [facility] in the context of the [...] and persistent tachyarrhythmia. Fasting Performing Organization Address [facility] Phone Number [address] [phone] C[place] Platelet count (03/23/2018 8:43 PM [employer]) Platelets 364 150 - 450 K/CU MM [facility] Specimen Blood Performing Organization Address [facility] Phone Number [address] [address] [phone] CENTER B-type Natriuretic Factor (BNP) (03/23/2018 8:43 PM [employer]) BNP 2,021 (H) 0 - 100 pg/mL [facility] Specimen Blood Performing Organization Address [facility] Phone Number [address] [address] [phone] CENTER Lipid panel (03/23/2018 8:43 PM [employer]) Triglycerides 132 mg/dL [facility] Cholesterol 103 mg/dL [facility] HDL 24 mg/dL [facility] LDL Calculated 53 mg/dL [facility] Specimen Blood Narrative Performed At Triglyceride Reference Range: [facility] Low Risk <150 [id number] High Risk 200-499 Very High Risk>=500 Cholesterol Reference Range: Low Risk <200 [id number] High Risk>240 HDL Cholesterol Reference Range: Low Risk >=60 High Risk <40 LDL Cholesterol Reference Range: Optimal<100 Near [id number] Very High >=190 Fasting Performing Organization Address City/State/Zipcode Phone Number [facility]OR[facility] [address] [place] [address] [phone] CENTER after 06/09/2017 Insurance Payer Benefit Plan / Group Subscriber ID Type Phone Address MEDICARE MEDICARE A B xxxxxxxxxxx Medicare Advance Directives For more information, please contact:[facility] [address] [phone] Code Status Date Activated Date Inactivated Comments Full Code 03/23/2018 8:26 PM This code status was determined by: Patient
--- OUTSIDE RECORDS SUMMARY | 2018-06-10 11:29 | XMS REPORT ---
:1935 [facility] Address [address] [place] [address] Care Team Providers Name Role Phone SENDY [...] (BEAKER) (test 148 mg/dL 70-110 TESTED AT [facility] [address] [facility] rwdk=[id number]) [facility] [address] BASIC METABOLIC [id number] 09:04:00 Test Item Value Reference Range Comments SODIUM (BEAKER) (test 135 meq/L 136-145 qlxh=165) POTASSIUM (BEAKER) (test 4.0 meq/L 3.5-5.1 wtyg=798) CHLORIDE (BEAKER) (test 103 meq/L 98-107 rgnw=541) CO2 (BEAKER) (test 24 meq/L 22-29 qhbo=653) BLOOD UREA NITROGEN 23 mg/dL 7-21 (BEAKER) (test quve=685) CREATININE (BEAKER) (test 2.91 mg/dL 0.57-1.25 lhzl=950) GLUCOSE RANDOM (BEAKER) 108 mg/dL 70-105 (test hrvl=570) CALCIUM (BEAKER) (test 9.1 mg/dL 8.4-10.2 gvgg=576) EGFR (BEAKER) (test 16 mL/min/1.73 sq m ESTIMATED GFR IS NOT cjgh=0356) ACCURATE CREATININE CLEARANCE IN PREDICTING GLOMERULAR FILTRATION RATE. ESTIMATED GFR IS NOT APPLICABLE FOR DIALYSIS PATIENTS. Please draw today if not done already.POCT-GLUCOSE [id number] 08:48:00 Test Item Value Reference Range Comments POC-GLUCOSE METER (BEAKER) 127 mg/dL 70-110 TESTED AT [address] (test wvvt=5446) [facility] [address] [id number] 08:14:00 Test Item Value Reference Range Comments MAGNESIUM (BEAKER) (test ljpr=604) 1.8 mg/dL 1.6-2.6 Please draw today if not done already.CBC (HEMOGRAM ONLY)2018-03-29 07:56:00 Test Item Value Reference Range Comments WHITE BLOOD CELL COUNT (BEAKER) (test fojj=986) 11.9 K/ L 3.5-10.5 RED BLOOD CELL COUNT (BEAKER) (test phfn=393) 3.64 M/ L 3.93-5.22 HEMOGLOBIN (BEAKER) (test ymew=679) 10.3 GM/DL 11.2-15.7 HEMATOCRIT (BEAKER) (test qpxi=234) 32.7 % 34.1-44.9 MEAN CORPUSCULAR VOLUME (BEAKER) (test xvmb=863) 89.8 fL 79.4-94.8 MEAN CORPUSCULAR HEMOGLOBIN (BEAKER) (test 28.3 pg 25.6-32.2 hukb=821) MEAN CORPUSCULAR HEMOGLOBIN CONC (BEAKER) (test 31.5 GM/DL 32.2-35.5 xebr=912) RED CELL DISTRIBUTION WIDTH (BEAKER) (test 17.7 % 11.7-14.4 qgif=081) PLATELET COUNT (BEAKER) (test zyoy=747) 359 K/CU MM 150-450 MEAN PLATELET VOLUME (BEAKER) (test kesd=904) 10.1 fL 9.4-12.3 NUCLEATED RED BLOOD CELLS (BEAKER) (test 0 /100 WBC 0-0 fkfr=855) POCT-GLUCOSE [id number] 23:20:00 Test Item Value Reference Range Comments POC-GLUCOSE METER (BEAKER) 181 mg/dL 70-110 TESTED AT [address] (test zhmt=5863) [facility] [address] POCT-GLUCOSE [id number] 18:54:00 Test Item Value Reference Range Comments POC-GLUCOSE METER (BEAKER) 162 mg/dL 70-110 TESTED AT [address] (test isrf=0602) [place] [id number] C. DIFFICILE GDH [id number] 16:18:00 Test Item Value Reference Range Comments CDT TOXIN (test Negative Negative evom=[id number]) CDT GDH ANTIGEN (test Negative Negative No indication of Clostridium yfqc=[id number]) difficile infection and no colonization. Discontinue enteric isolation and therapy. [facility] performed by [facility] Rapid [facility]. For GDH, published sensitivity of the assay is 98.7% compared to cytotoxicity testing. For Toxin AB, published sensitivity is 87.8% and specificity 99.4% compared to cytotoxicity testing.Verification of kit performance was done by the [facility] Microbiology Lab prior to clinical use.POCT-GLUCOSE [id number] 15:35:00 Test Item Value Reference Range Comments POC-GLUCOSE METER (BEAKER) 162 mg/dL 70-110 TESTED AT [address] (test ktnk=5100) [place] [id number] POCT-GLUCOSE [id number] 14:06:00 Test Item Value Reference Range Comments POC-GLUCOSE METER (BEAKER) 175 mg/dL 70-110 TESTED AT [address] (test lgxn=3747) [place] [address] POCT-GLUCOSE [id number] 10:16:00 Test Item Value Reference Range Comments POC-GLUCOSE METER (BEAKER) 163 mg/dL 70-110 TESTED AT [address] (test zdvy=5520) [facility] [address] BASIC METABOLIC [id number] 06:00:00 Test Item Value Reference Range Comments SODIUM (BEAKER) (test 132 meq/L 136-145 twpu=759) POTASSIUM (BEAKER) (test 4.1 meq/L 3.5-5.1 vfjz=241) CHLORIDE (BEAKER) (test 101 meq/L 98-107 aoco=925) CO2 (BEAKER) (test 21 meq/L 22-29 njfz=093) BLOOD UREA NITROGEN 40 mg/dL 7-21 (BEAKER) (test attz=973) CREATININE (BEAKER) (test 4.19 mg/dL 0.57-1.25 hosy=675) GLUCOSE RANDOM (BEAKER) 122 mg/dL 70-105 (test wwio=753) CALCIUM (BEAKER) (test 9.3 mg/dL 8.4-10.2 wsvf=249) EGFR (BEAKER) (test 10 mL/min/1.73 sq m ESTIMATED GFR IS NOT pano=7489) ACCURATE CREATININE CLEARANCE IN PREDICTING GLOMERULAR FILTRATION RATE. ESTIMATED GFR IS NOT APPLICABLE FOR DIALYSIS PATIENTS. Please draw today if not done already.[id number] 05:59:00 Test Item Value Reference Range Comments MAGNESIUM (BEAKER) (test wgox=154) 1.8 mg/dL 1.6-2.6 Please draw today if not done already.CBC (HEMOGRAM ONLY)2018-03-28 05:43:00 Test Item Value Reference Range Comments WHITE BLOOD CELL COUNT (BEAKER) (test flrl=169) 11.3 K/ L 3.5-10.5 RED BLOOD CELL COUNT (BEAKER) (test okto=235) 3.61 M/ L 3.93-5.22 HEMOGLOBIN (BEAKER) (test arvm=659) 10.1 GM/DL 11.2-15.7 HEMATOCRIT (BEAKER) (test tncp=361) 33.2 % 34.1-44.9 MEAN CORPUSCULAR VOLUME (BEAKER) (test xlif=952) 92.0 fL 79.4-94.8 MEAN CORPUSCULAR HEMOGLOBIN (BEAKER) (test 28.0 pg 25.6-32.2 opxu=466) MEAN CORPUSCULAR HEMOGLOBIN CONC (BEAKER) (test 30.4 GM/DL 32.2-35.5 bwmb=794) RED CELL DISTRIBUTION WIDTH (BEAKER) (test 18.2 % 11.7-14.4 vpxd=132) PLATELET COUNT (BEAKER) (test eriv=399) 357 K/CU MM 150-450 MEAN PLATELET VOLUME (BEAKER) (test funf=888) 9.7 fL 9.4-12.3 NUCLEATED RED BLOOD CELLS (BEAKER) (test 0 /100 WBC 0-0 bimi=554) POCT-GLUCOSE [id number] 22:08:00 Test Item Value Reference Range Comments POC-GLUCOSE METER (BEAKER) 154 mg/dL 70-110 TESTED AT [address] (test nvyv=4653) [facility] [address] POCT-GLUCOSE [id number] 17:45:00 Test Item Value Reference Range Comments POC-GLUCOSE METER (BEAKER) 215 mg/dL 70-110 TESTED AT [address] (test rkux=5110) [place] [address] ANG, AV-SHUNT, CATH INTRO WITH [id number] 16:13:00Reason for exam:-> LUE clotted hemodialysis vascular [...] MDReport Verified Date/Time: 03/27/2018 16:13:07 Reading Location: [place] [address] Angio Body Reading Room POCT-GLUCOSE [id number] 13:21:00 Test Item Value Reference Range Comments POC-GLUCOSE METER (BEAKER) 201 mg/dL 70-110 TESTED AT [address] (test mcph=7210) [place] [address] POCT-GLUCOSE [id number] 09:57:00 Test Item Value Reference Range Comments POC-GLUCOSE METER (BEAKER) 95 mg/dL 70-110 TESTED AT [address] (test hjgy=3282) [place] [address] BASIC METABOLIC [id number] 06:47:00 Test Item Value Reference Range Comments SODIUM (BEAKER) (test 132 meq/L 136-145 ucgy=853) POTASSIUM (BEAKER) (test 3.7 meq/L 3.5-5.1 bhlz=611) CHLORIDE (BEAKER) (test 103 meq/L 98-107 otmt=342) CO2 (BEAKER) (test 20 meq/L 22-29 yldr=340) BLOOD UREA NITROGEN 26 mg/dL 7-21 (BEAKER) (test rltl=137) CREATININE (BEAKER) (test 3.15 mg/dL 0.57-1.25 khby=691) GLUCOSE RANDOM (BEAKER) 100 mg/dL 70-105 (test fogu=536) CALCIUM (BEAKER) (test 8.9 mg/dL 8.4-10.2 oemv=979) EGFR (BEAKER) (test mL/min/1.73 sq m INSUFFICIENT CLINICAL DATA iwrz=8360) TO CALCULATE ESTIMATED GFR. Please draw today if not done already.[id number] 06:38:00 Test Item Value Reference Range Comments MAGNESIUM (BEAKER) (test xfbu=776) 1.8 mg/dL 1.6-2.6 Please draw today if not done already.CBC (HEMOGRAM ONLY)2018-03-27 06:11:00 Test Item Value Reference Range Comments WHITE BLOOD CELL COUNT (BEAKER) (test nevt=284) 10.8 K/ L 3.5-10.5 RED BLOOD CELL COUNT (BEAKER) (test kijc=650) 3.55 M/ L 3.93-5.22 HEMOGLOBIN (BEAKER) (test nkir=810) 9.9 GM/DL 11.2-15.7 HEMATOCRIT (BEAKER) (test lrjz=872) 32.3 % 34.1-44.9 MEAN CORPUSCULAR VOLUME (BEAKER) (test rqvy=142) 91.0 fL 79.4-94.8 MEAN CORPUSCULAR HEMOGLOBIN (BEAKER) (test 27.9 pg 25.6-32.2 lrmd=607) MEAN CORPUSCULAR HEMOGLOBIN CONC (BEAKER) (test 30.7 GM/DL 32.2-35.5 qphf=248) RED CELL DISTRIBUTION WIDTH (BEAKER) (test 18.0 % 11.7-14.4 ycrz=544) PLATELET COUNT (BEAKER) (test tjpa=668) 362 K/CU MM 150-450 MEAN PLATELET VOLUME (BEAKER) (test aafj=752) 10.0 fL 9.4-12.3 NUCLEATED RED BLOOD CELLS (BEAKER) (test 0 /100 WBC 0-0 bghk=313) POCT-GLUCOSE [id number] 23:30:00 Test Item Value Reference Range Comments POC-GLUCOSE METER (BEAKER) 116 mg/dL 70-110 TESTED AT [address] (test sxdv=1800) [place] [address] POCT-GLUCOSE [id number] 17:47:00 Test Item Value Reference Range Comments POC-GLUCOSE METER (BEAKER) 146 mg/dL 70-110 TESTED AT [address] (test jfwu=4469) [place] [address] [id number] 15:23:00 Test Item Value Reference Range Comments PHOSPHORUS (BEAKER) (test qrkw=776) 2.0 mg/dL 2.3-4.7 POCT-GLUCOSE [id number] 14:54:00 Test Item Value Reference Range Comments POC-GLUCOSE METER (BEAKER) 127 mg/dL 70-110 TESTED AT [address] (test dket=0751) [place] [address] HEPATITIS B SURFACE [id number] 10:46:00 Test Item Value Reference Range Comments HEPATITIS B SURFACE ANTIGEN (2) (BEAKER) (test Nonreactive Nonreactive bbls=0412) POCT-GLUCOSE [id number] 09:05:00 Test Item Value Reference Range Comments POC-GLUCOSE METER (BEAKER) 145 mg/dL 70-110 TESTED AT [address] (test igrc=4589) [place] [address] BASIC METABOLIC [id number] 06:36:00 Test Item Value Reference Range Comments SODIUM (BEAKER) (test 125 meq/L 136-145 uhow=227) POTASSIUM (BEAKER) (test 4.2 meq/L 3.5-5.1 cycp=530) CHLORIDE (BEAKER) (test 93 meq/L 98-107 ggyy=988) CO2 (BEAKER) (test 19 meq/L 22-29 hhcv=263) BLOOD UREA NITROGEN 75 mg/dL 7-21 (BEAKER) (test onel=191) CREATININE (BEAKER) (test 5.98 mg/dL 0.57-1.25 btbf=701) GLUCOSE RANDOM (BEAKER) 119 mg/dL 70-105 (test tvmy=166) CALCIUM (BEAKER) (test 9.2 mg/dL 8.4-10.2 nqiy=751) EGFR (BEAKER) (test mL/min/1.73 sq m INSUFFICIENT CLINICAL DATA nqye=6688) TO CALCULATE ESTIMATED GFR. Please draw today if not done already.[id number] 06:25:00 Test Item Value Reference Range Comments MAGNESIUM (BEAKER) (test ydsg=441) 1.9 mg/dL 1.6-2.6 Please draw today if not done already.PROTHROMBIN [id number] 05:41:00 Test Item Value Reference Range Comments PROTIME (BEAKER) (test xybg=028) 14.8 seconds 11.7-14.7 INR (BEAKER) (test hkkf=865) 1.2 <=5.9 RECOMMENDED COUMADIN/WARFARIN INR THERAPY RANGESSTANDARD DOSE: 2.0 - 3.0 Includes: PROPHYLAXIS forvenous thrombosis, systemic embolization; TREATMENT for venous thrombosis and/or pulmonary embolus.HIGH RISK: Target INR is 2.5-3.5 for patients with mechanical heart valves.CBC (HEMOGRAM ONLY)2018-03-26 05:36:00 Test Item Value Reference Range Comments WHITE BLOOD CELL COUNT (BEAKER) (test gdms=223) 12.0 K/ L 3.5-10.5 RED BLOOD CELL COUNT (BEAKER) (test wifg=652) 3.53 M/ L 3.93-5.22 HEMOGLOBIN (BEAKER) (test jfaz=416) 10.0 GM/DL 11.2-15.7 HEMATOCRIT (BEAKER) (test eqlw=220) 31.6 % 34.1-44.9 MEAN CORPUSCULAR VOLUME (BEAKER) (test okqm=008) 89.5 fL 79.4-94.8 MEAN CORPUSCULAR HEMOGLOBIN (BEAKER) (test 28.3 pg 25.6-32.2 yorc=657) MEAN CORPUSCULAR HEMOGLOBIN CONC (BEAKER) (test 31.6 GM/DL 32.2-35.5 oper=785) RED CELL DISTRIBUTION WIDTH (BEAKER) (test 17.7 % 11.7-14.4 suza=231) PLATELET COUNT (BEAKER) (test ppyy=407) 401 K/CU MM 150-450 MEAN PLATELET VOLUME (BEAKER) (test wijv=033) 10.6 fL 9.4-12.3 NUCLEATED RED BLOOD CELLS (BEAKER) (test 0 /100 WBC 0-0 sblu=570) [id number] 02:04:00 Test Item Value Reference Range Comments PARTIAL THROMBOPLASTIN TIME (BEAKER) (test 60.2 seconds 22.5-36.0 hksm=100) POCT-GLUCOSE [id number] 20:52:00 Test Item Value Reference Range Comments POC-GLUCOSE METER (BEAKER) 153 mg/dL 70-110 TESTED AT [address] (test rurr=1106) [place] [address] [id number] 18:30:00 Test Item Value Reference Range Comments PARTIAL THROMBOPLASTIN TIME (BEAKER) (test 78.9 seconds 22.5-36.0 axmy=433) POCT-GLUCOSE [id number] 17:26:00 Test Item Value Reference Range Comments POC-GLUCOSE METER (BEAKER) 148 mg/dL 70-110 TESTED AT [address] (test iycl=3441) [place] [address] POCT-GLUCOSE [id number] 12:32:00 Test Item Value Reference Range Comments POC-GLUCOSE METER (BEAKER) 186 mg/dL 70-110 TESTED AT [address] (test futs=6238) [place] [address] [id number] 12:22:00 Test Item Value Reference Range Comments PARTIAL THROMBOPLASTIN TIME (BEAKER) (test 98.1 seconds 22.5-36.0 iscq=843) POCT-GLUCOSE [id number] 08:04:00 Test Item Value Reference Range Comments POC-GLUCOSE METER (BEAKER) 139 mg/dL 70-110 TESTED AT [address] (test czum=1579) [place] [address] IRON, TIBC, % SAT. (WITHOUT FERRITIN)2018-03-25 05:38:00 Test Item Value Reference Range Comments IRON (BEAKER) (test jpgj=396) 29.0 ug/dL 40.0-160.0 TOTAL IRON BINDING CAPACITY (BEAKER) (test 123 ug/dL 250-450 zxsn=490) IRON % SATURATION (2) (BEAKER) (test huih=5080) 24 % 20-55 BASIC METABOLIC [id number] 05:29:00 Test Item Value Reference Range Comments SODIUM (BEAKER) (test 128 meq/L 136-145 atxl=232) POTASSIUM (BEAKER) (test 4.1 meq/L 3.5-5.1 xbqn=964) CHLORIDE (BEAKER) (test 98 meq/L 98-107 mfgj=092) CO2 (BEAKER) (test 18 meq/L 22-29 xpnc=001) BLOOD UREA NITROGEN 57 mg/dL 7-21 (BEAKER) (test abxc=111) CREATININE (BEAKER) (test 4.80 mg/dL 0.57-1.25 octx=957) GLUCOSE RANDOM (BEAKER) 105 mg/dL 70-105 (test eqtm=438) CALCIUM (BEAKER) (test 9.5 mg/dL 8.4-10.2 dyhd=003) EGFR (BEAKER) (test mL/min/1.73 sq m INSUFFICIENT CLINICAL DATA ybuf=0470) TO CALCULATE ESTIMATED GFR. Please draw today if not done already.[id number] 05:15:00 Test Item Value Reference Range Comments MAGNESIUM (BEAKER) (test nape=422) 1.8 mg/dL 1.6-2.6 Please draw today if not done already.[id number] 04:56:00 Test Item Value Reference Range Comments PARTIAL THROMBOPLASTIN TIME (BEAKER) (test 90.6 seconds 22.5-36.0 byqf=173) PROTHROMBIN [id number] 04:55:00 Test Item Value Reference Range Comments PROTIME (BEAKER) (test amrp=792) 15.0 seconds 11.7-14.7 INR (BEAKER) (test xrjs=277) 1.1 <=5.9 RECOMMENDED COUMADIN/WARFARIN INR THERAPY RANGESSTANDARD DOSE: 2.0 - 3.0 Includes: PROPHYLAXIS forvenous thrombosis, systemic embolization; TREATMENT for venous thrombosis and/or pulmonary embolus.HIGH RISK: Target INR is 2.5-3.5 for patients with mechanical heart valves.CBC (HEMOGRAM ONLY)2018-03-25 04:50:00 Test Item Value Reference Range Comments WHITE BLOOD CELL COUNT (BEAKER) (test dhhs=205) 10.2 K/ L 3.5-10.5 RED BLOOD CELL COUNT (BEAKER) (test rdvn=467) 3.76 M/ L 3.93-5.22 HEMOGLOBIN (BEAKER) (test tnpw=182) 10.6 GM/DL 11.2-15.7 HEMATOCRIT (BEAKER) (test vdco=822) 33.9 % 34.1-44.9 MEAN CORPUSCULAR VOLUME (BEAKER) (test wuti=921) 90.2 fL 79.4-94.8 MEAN CORPUSCULAR HEMOGLOBIN (BEAKER) (test 28.2 pg 25.6-32.2 wjwc=314) MEAN CORPUSCULAR HEMOGLOBIN CONC (BEAKER) (test 31.3 GM/DL 32.2-35.5 wsqv=151) RED CELL DISTRIBUTION WIDTH (BEAKER) (test 17.9 % 11.7-14.4 krxj=190) PLATELET COUNT (BEAKER) (test qtfy=403) 389 K/CU MM 150-450 MEAN PLATELET VOLUME (BEAKER) (test osvd=300) 9.9 fL 9.4-12.3 NUCLEATED RED BLOOD CELLS (BEAKER) (test 0 /100 WBC 0-0 bkgz=126) [id number] 22:51:00 Test Item Value Reference Range Comments PARTIAL THROMBOPLASTIN TIME (BEAKER) (test 58.5 seconds 22.5-36.0 brhb=646) POCT-GLUCOSE [id number] 21:34:00 Test Item Value Reference Range Comments POC-GLUCOSE METER (BEAKER) 191 mg/dL 70-110 TESTED AT [address] (test zkdw=8486) [place] [id number] POCT-GLUCOSE [id number] 17:43:00 Test Item Value Reference Range Comments POC-GLUCOSE METER (BEAKER) 171 mg/dL 70-110 TESTED AT [address] (test exld=2206) [place] [address] [id number] 13:32:00 Test Item Value Reference Range Comments PARTIAL THROMBOPLASTIN TIME (BEAKER) (test 63.7 seconds 22.5-36.0 hnpp=646) POCT-GLUCOSE [id number] 12:45:00 Test Item Value Reference Range Comments POC-GLUCOSE METER (BEAKER) 81 mg/dL 70-110 TESTED AT [address] (test ktjt=3495) [place] [address] POCT-GLUCOSE [id number] 07:44:00 Test Item Value Reference Range Comments POC-GLUCOSE METER (BEAKER) 128 mg/dL 70-110 TESTED AT [facility] [address] (test xqca=4631) [place] [address] CBC W/PLT COUNT & AUTO [id number] 07:43:00 Test Item Value Reference Range Comments WHITE BLOOD CELL COUNT (BEAKER) (test xkow=880) 10.9 K/ L 3.5-10.5 RED BLOOD CELL COUNT (BEAKER) (test lobt=071) 3.53 M/ L 3.93-5.22 HEMOGLOBIN (BEAKER) (test hyzp=925) 9.9 GM/DL 11.2-15.7 HEMATOCRIT (BEAKER) (test beit=523) 31.7 % 34.1-44.9 MEAN CORPUSCULAR VOLUME (BEAKER) (test rhkl=805) 89.8 fL 79.4-94.8 MEAN CORPUSCULAR HEMOGLOBIN (BEAKER) (test 28.0 pg 25.6-32.2 ojge=143) MEAN CORPUSCULAR HEMOGLOBIN CONC (BEAKER) (test 31.2 GM/DL 32.2-35.5 uctb=722) RED CELL DISTRIBUTION WIDTH (BEAKER) (test 17.8 % 11.7-14.4 lopa=726) PLATELET COUNT (BEAKER) (test ozlu=618) 365 K/CU MM 150-450 MEAN PLATELET VOLUME (BEAKER) (test iowk=366) 10.4 fL 9.4-12.3 NUCLEATED RED BLOOD CELLS (BEAKER) (test 0 /100 WBC 0-0 rmcd=014) NEUTROPHILS RELATIVE PERCENT (BEAKER) (test 75 % brbx=339) LYMPHOCYTES RELATIVE PERCENT (BEAKER) (test 12 % pikz=628) MONOCYTES RELATIVE PERCENT (BEAKER) (test 9 % yvdh=994) EOSINOPHILS RELATIVE PERCENT (BEAKER) (test 3 % ygsw=017) BASOPHILS RELATIVE PERCENT (BEAKER) (test 0 % tlfn=353) NEUTROPHILS ABSOLUTE COUNT (BEAKER) (test 8.15 K/ L 1.56-6.13 aoow=994) LYMPHOCYTES ABSOLUTE COUNT (BEAKER) (test 1.32 K/ L 1.18-3.74 inqi=578) MONOCYTES ABSOLUTE COUNT (BEAKER) (test 0.94 K/ L 0.24-0.36 qhhz=664) EOSINOPHILS ABSOLUTE COUNT (BEAKER) (test 0.32 K/ L 0.04-0.36 keol=828) BASOPHILS ABSOLUTE COUNT (BEAKER) (test 0.04 K/ L 0.01-0.08 sgze=847) IMMATURE GRANULOCYTES-RELATIVE PERCENT (BEAKER) 1 % 0-1 (test llxx=2845) COMPREHENSIVE METABOLIC [id number] 06:39:00 Test Item Value Reference Range Comments TOTAL PROTEIN (BEAKER) 6.4 gm/dL 6.0-8.3 (test jofp=727) ALBUMIN (BEAKER) (test 2.8 g/dL 3.5-5.0 zmer=4407) ALKALINE PHOSPHATASE 108 U/L 40-150 (BEAKER) (test mukx=358) BILIRUBIN TOTAL (BEAKER) 0.4 mg/dL 0.2-1.2 (test lblo=385) SODIUM (BEAKER) (test 129 meq/L 136-145 rjkx=623) POTASSIUM (BEAKER) (test 3.3 meq/L 3.5-5.1 xjtb=034) CHLORIDE (BEAKER) (test 99 meq/L 98-107 hqhh=482) CO2 (BEAKER) (test 21 meq/L 22-29 zqjr=792) BLOOD UREA NITROGEN 47 mg/dL 7-21 (BEAKER) (test zjrs=972) CREATININE (BEAKER) (test 3.80 mg/dL 0.57-1.25 ufgu=713) GLUCOSE RANDOM (BEAKER) 103 mg/dL 70-105 (test scyf=564) CALCIUM (BEAKER) (test 9.6 mg/dL 8.4-10.2 jjjf=578) AST (SGOT) (BEAKER) (test 46 U/L 5-34 xqhe=465) ALT (SGPT) (BEAKER) (test 49 U/L 6-55 opnh=088) EGFR (BEAKER) (test mL/min/1.73 sq m INSUFFICIENT CLINICAL DATA nhvy=2931) TO CALCULATE ESTIMATED GFR. [id number] 06:31:00 Test Item Value Reference Range Comments PHOSPHORUS (BEAKER) (test kvdp=830) 3.2 mg/dL 2.3-4.7 [id number] 06:31:00 Test Item Value Reference Range Comments MAGNESIUM (BEAKER) (test btfe=453) 1.7 mg/dL 1.6-2.6 PROTHROMBIN [id number] 06:12:00 Test Item Value Reference Range Comments PROTIME (BEAKER) (test xqon=103) 16.3 seconds 11.7-14.7 INR (BEAKER) (test pvtn=216) 1.3 <=5.9 RECOMMENDED COUMADIN/WARFARIN INR THERAPY RANGESSTANDARD DOSE: 2.0 - 3.0 Includes: PROPHYLAXIS forvenous thrombosis, systemic embolization; TREATMENT for venous thrombosis and/or pulmonary embolus.HIGH RISK: Target INR is 2.5-3.5 for patients with mechanical heart valves.[id number] 06:12:00 Test Item Value Reference Range Comments PARTIAL THROMBOPLASTIN TIME (BEAKER) (test 92.6 seconds 22.5-36.0 owpe=030) CBC (HEMOGRAM ONLY)2018-03-24 05:58:00 Test Item Value Reference Range Comments WHITE BLOOD CELL COUNT (BEAKER) (test zigf=837) 10.9 K/ L 3.5-10.5 RED BLOOD CELL COUNT (BEAKER) (test ejjr=174) 3.53 M/ L 3.93-5.22 HEMOGLOBIN (BEAKER) (test wuws=980) 9.9 GM/DL 11.2-15.7 HEMATOCRIT (BEAKER) (test eenz=140) 31.7 % 34.1-44.9 MEAN CORPUSCULAR VOLUME (BEAKER) (test ildd=340) 89.8 fL 79.4-94.8 MEAN CORPUSCULAR HEMOGLOBIN (BEAKER) (test 28.0 pg 25.6-32.2 lypp=242) MEAN CORPUSCULAR HEMOGLOBIN CONC (BEAKER) (test 31.2 GM/DL 32.2-35.5 afmx=830) RED CELL DISTRIBUTION WIDTH (BEAKER) (test 17.8 % 11.7-14.4 xejb=627) PLATELET COUNT (BEAKER) (test werh=078) 365 K/CU MM 150-450 MEAN PLATELET VOLUME (BEAKER) (test svyt=704) 10.4 fL 9.4-12.3 NUCLEATED RED BLOOD CELLS (BEAKER) (test 0 /100 WBC 0-0 nmhp=058) POCT-GLUCOSE [id number] 22:41:00 Test Item Value Reference Range Comments POC-GLUCOSE METER ([employer]) 171 mg/dL 70-110 TESTED AT [facility] [address] (test rvyr=3183) [facility] [address] TROPONIN [id number] 21:23:00 Test Item Value Reference Range Comments TROPONIN I (BEAKER) (test qioq=376) 1.89 ng/mL 0.00-0.03 Troponin I (TnI) levels [...] Value Reference Range Comments B-TYPE NATRIURETIC PEPTIDE ([employer] SolarAKER) (test 2021 pg/mL 0-100 sxlz=304) LIPID [id number] 21:09:00 Test Item Value Reference Range Comments TRIGLYCERIDES (BEAKER) (test tgmc=223) 132 mg/dL CHOLESTEROL (BEAKER) (test alpk=008) 103 mg/dL HDL CHOLESTEROL (BEAKER) (test cvyp=229) 24 mg/dL LDL CHOLESTEROL CALCULATED ([employer]) (test 53 mg/dL exlx=713) Triglyceride Reference Range: Low Risk <150 Borderline 150- 199 High Risk 200-499 Very High Risk >=500Cholesterol Reference Range: Low Risk <200 Borderline 200-239 High Risk > 240HDL Cholesterol Reference Range: Low Risk >=60 High Risk <40LDL Cholesterol Reference Range: Optimal <100 Near Optimal 100-129 Borderline 130-159 High 160-189 Very High >=190 [id number] 21:08:00 Test Item Value Reference Range Comments PARTIAL THROMBOPLASTIN TIME (BEAKER) (test 107.2 seconds 22.5-36.0 lvhb=273) Prior to initiating heparinPLATELET [id number] 20:54:00 Test Item Value Reference Range Comments PLATELET COUNT ([employer]) (test fkyq=268) 364 K/CU MM 150-450
[2018-06-10 12:25] LABS: Absolute Lymphocytes (CBC) 1.1 K/uL (0.7-4.9); Absolute Monocytes 0.7 K/uL (0.1-1.3); Absolute Neutrophil 10.1 K/uL (1.8-8.0); Basophils % 0.6 % (0-1.3); Hematocrit 38.5 % (36.0-45.0); Lymphocytes % 8.8 % (15.3-44.8); MPV 8.5 fL (7.6-11.3); Monocytes % 5.7 % (3.3-12.3); RBC Red Blood Cell Count 4.33 M/uL (3.86-4.86)
--- NOTE | 2018-06-10 12:25 | RAD REPORT ---
EXAM DESCRIPTION: RAD - Knee Right 2 View - 06/10/2018 12:18 pm CLINICAL HISTORY: BKA with infection COMPARISON: Chest Single View dated 04/08/2018 FINDINGS: Oegwi-fsm-pmko amputation is seen. Soft tissues are prominent in the region. Heavy vascula r calcifications seen. Bony fragmentation is seen at the level of the fibular stump, favored to be po stoperative in etiology. If there is concern for osteomyelitis in this region, three-phase bone scan may be considered.
[2018-06-10 12:49] LABS: Albumin 2.6 g/dL (3.4-5.0); Bilirubin Direct 0.2 mg/dL (0-0.2); Bilirubin Total 0.5 mg/dL (0.2-1.0); Potassium 4.3 mmol/L (3.5-5.1)
--- NOTE | 2018-06-10 13:03 | EDPHYS ---
Physician Documentation [facility] Name: Dianelys Carroll Age: 83 yrs Sex: Female : 1935 Arrival Date: 06/10/2018 Time: 11:29 Bed 7 Private MD: ED Physician Michael Tamayo HPI: 06/10 12:14 This 83 yrs old Female presents to ER via EMS with complaints of Wound jr8 Infection. 12:14 Patient had BKA about 1 month ago. Has been on a couple rounds of oral antibiotics for jr8 erythema to stump. [facility] called ED today because they feel that it is worsening despite oral antibiotic therapy. Severity of symptoms: At their worst the symptoms were moderate in the emergency department the symptoms are unchanged. The patient has not experienced similar symptoms in the past. The patient has not recently seen a physician. Historical: - Allergies: 11:42 altase; bp 11:42 clopidogrel bisulfate; bp 11:42 Codeine; bp 11:42 enalapril maleate; bp 11:42 Simvastatin; bp 11:42 Vioxx; bp 11:42 Ramipril; bp 11:42 OPIATES; bp 11:42 Morphine; bp 11:42 enalaprilat dihydrate; bp 11:42 HYDROCODONE; bp 11:42 Demerol; bp 11:42 Ibuprofen; bp 11:42 propoxyphene napsylate; bp - PMHx: 11:42 Diabetes - IDDM; ESRD; Anxiety; Hallucinations; Dementia; Pacemaker; TIA; Dialysis; bp Anemia; candidiasis; chronic pulmonary edema; Depression; DYSPHAGIA; Glaucoma; Myocardial infarction; Hypomagnesemia; Hypertension; Hyperlipidemia; - Immunization history:: Adult Immunizations up to date. - Social history:: Smoking status: Patient/guardian denies using tobacco. - Ebola Screening: : Patient negative for fever greater than or equal to 101.5 degrees Fahrenheit, and additional compatible Ebola Virus Disease symptoms Patient denies exposure to infectious person Patient denies travel to an Ebola-affected area in the 21 days before illness onset No symptoms or risks identified at this time. ROS: 12:14 Eyes: Negative for injury, pain, redness, and discharge, ENT: Negative for injury, jr8 pain, and discharge, Neck: Negative for injury, pain, and swelling, Cardiovascular: Negative for chest pain, palpitations, and edema, Respiratory: Negative for shortness of breath, cough, wheezing, and pleuritic chest pain, Abdomen/GI: Negative for abdominal pain, nausea, vomiting, diarrhea, and constipation, Back: Negative for injury and pain, Neuro: Negative for headache, weakness, numbness, tingling, and seizure. 12:14 MS/extremity: Positive for erythema, pain, swelling, tenderness, of the right proximal tibia. Exam: 12:14 Eyes: Pupils equal round and reactive to light, extra-ocular motions intact. Lids and jr8 lashes normal. Conjunctiva and sclera are non-icteric and not injected. Cornea within normal limits. Periorbital areas with no swelling, redness, or edema. ENT: Nares patent. No nasal discharge, no septal abnormalities noted. Tympanic membranes are normal and external auditory canals are clear. Oropharynx with no redness, swelling, or masses, exudates, or evidence of obstruction, uvula midline. Mucous membranes moist. Neck: Trachea midline, no thyromegaly or masses palpated, and no cervical lymphadenopathy. Supple, full range of motion without nuchal rigidity, or vertebral point tenderness. No Meningismus. Cardiovascular: Regular rate and rhythm with a normal S1 and S2. No gallops, murmurs, or rubs. Normal PMI, no JVD. No pulse deficits. Respiratory: Lungs have equal breath sounds bilaterally, clear to auscultation and percussion. No rales, rhonchi or wheezes noted. No increased work of breathing, no retractions or nasal flaring. Abdomen/GI: Soft, non-tender, with normal bowel sounds. No distension or tympany. No guarding or rebound. No evidence of tenderness throughout. Back: No spinal tenderness. No costovertebral tenderness. Full range of motion. Skin: Warm, dry with normal turgor. Normal color with no rashes, no lesions, and no evidence of cellulitis. Neuro: Awake and alert, GCS 15, oriented to person, place, time, and situation. Cranial nerves II-XII grossly intact. Motor strength 5/5 in all extremities. Sensory grossly intact. Cerebellar exam normal. Normal gait. 12:14 Musculoskeletal/extremity: Extremities: grossly normal except: noted in the right leg: Patient has BKA noted. Erythema with black eschar noted around old incision site. Tender to touch. No discharge noted , ROM: no acute changes, intact in all extremities, Circulation is intact in all extremities. Sensation intact. Vital Signs: 11:46 BP 127 / 75; Pulse 78; Resp 14; Temp 97.9; Pulse Ox 99% ; Weight 63.5 kg; bp 12:45 BP 132 / 62; Pulse 76; Resp 14; Pulse Ox 99% ; bp 13:45 BP 133 / 68; Pulse 74; Resp 14; Pulse Ox 100% ; bp MDM: 11:30 Patient medically screened. 8 12:34 Data reviewed: vital signs, nurses notes, lab test result(s), radiologic studies, plain jr8 films. Data interpreted: Pulse oximetry: on room air is 99 %. Interpretation: normal. Counseling: I had a detailed discussion with the patient and/or guardian regarding: the historical points, exam findings, and any diagnostic results supporting the discharge/admit diagnosis, lab results, radiology results. Physician consultation: Matt Rondon MD was called at 12:34, was contacted at 12:34, regarding consult, patient's condition, Discussed case and findings with Dr. Rondon. No warmth to extremity. Just mild erythema. Dr. Rondon said that she has chronic vascular changes and erythema from ischemia and not infection. Has been on two rounds of antibiotics with no change. Will see her in clinic tomorrow for f/u. I agree with this and will d/c home. . 13:17 ED course: Mild elevation in WBC and procalcitonin. No other exam finding to suggest jr8 infection. Will put on keflex and wait for blood cultures . 14:46 ED course: Talked with family about case as well. They showed pictures of leg over the jr8 past couple of weeks. Stated that there has been no change. I agree based on the pictures that there has been no change. Family and patient wants to wait to see if blood cultures show anything and will f/u out patient cramer with Dr. Rondon tomorrow . 06/10 11:31 Order name: CBC with Diff; Complete Time: 13:41 jr8 06/10 11:31 Order name: Basic Metabolic Panel; Complete Time: 12:58 jr8 06/10 11:31 Order name: LFT's; Complete Time: 12:58 jr8 06/10 11:31 Order name: Blood Culture Adult (2) jr8 06/10 11:31 Order name: Procalcitonin; Complete Time: 13:04 jr8 06/10 12:30 Order name: CBC Smear Scan; Complete Time: 13:41 EDME 06/10 11:31 Order name: IV; Complete Time: 12:12 jr8 06/10 11:43 Order name: Knee Right 2 View; Complete Time: 12:28 EDMS Administered Medications: No medications were administered Disposition: 06/11 06:46 Co-signature as Attending Physician, Michael Tamayo MD I agree with the assessment and aron plan of care. Disposition: 06/10/18 13:02 Discharged to Home. 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 - Condition is Stable. - Discharge Instructions: Wound Dehiscence, Wound Infection. - Prescriptions for Keflex 250 mg Oral Capsule - take 1 capsule by ORAL route every 12 hours for 10 days; 20 capsule. - Medication Reconciliation Form, Thank You Letter, Antibiotic Education, Prescription Opioid Use form. - Follow up: Matt Rondon MD; When: 1 - 2 days; Reason: Wound Recheck, Recheck today's complaints, Continuance of care, Re-evaluation by your physician. - Problem is new. - Symptoms have improved. - Notes: Chronic ischemic wound changes that can be followed up on out patient basis. Needs to be seen by Dr. Rondon in next 48 hours Signatures: Dispatcher [employer] [facility] Michael Tamayo MD MD cha Roszak, Josh, PA PA jr8 Rajeev Mercado, RN RN bp Corrections: (The following items were deleted from the chart) 06/10 11:43 11:32 Knee Right 3 View+RAD.RAD.[email or web address] ordered. [facility] 15:53 13:02 06/10/2018 13:02 Discharged to Home. 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 bp Condition is Stable. Forms are Medication Reconciliation Form, Thank You Letter, Antibiotic Education, Prescription Opioid Use. Follow up: Matt Rondon; When: 1 - 2 days; Reason: Wound Recheck, Recheck today's complaints, Continuance of care, Re-evaluation by your physician. Problem is new. Symptoms have improved. jr8
--- NOTE | 2018-06-10 13:03 | ER ---
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 Transition of care: patient was bp received from another setting of care (long-term care facility), [facility]. Onset of symptoms is unknown. Risk Assessment: Do you want to hurt yourself or someone else? Patient reports no desire to harm self or others. Initial Sepsis Screen: Does the patient meet any 2 criteria? No. Patient's initial sepsis screen is negative. Does the patient have a suspected source of infection? Yes: Skin breakdown/wound. Care prior to arrival: Glucose check: 211. 11:31 Method Of Arrival: EMS bp 11:31 Acuity: EFRAÍN 3 bp Triage Assessment: 11:46 General: Appears in no apparent distress. comfortable, Behavior is calm, cooperative, bp appropriate for age. Pain: Complains of pain in right leg. Historical: - Allergies: 11:42 altase; bp 11:42 clopidogrel bisulfate; bp 11:42 Codeine; bp 11:42 enalapril maleate; bp 11:42 Simvastatin; bp 11:42 Vioxx; bp 11:42 Ramipril; bp 11:42 OPIATES; bp 11:42 Morphine; bp 11:42 enalaprilat dihydrate; bp 11:42 HYDROCODONE; bp 11:42 Demerol; bp 11:42 Ibuprofen; bp 11:42 propoxyphene napsylate; bp - PMHx: 11:42 Diabetes - IDDM; ESRD; Anxiety; Hallucinations; Dementia; Pacemaker; TIA; Dialysis; bp Anemia; candidiasis; chronic pulmonary edema; Depression; DYSPHAGIA; Glaucoma; Myocardial infarction; Hypomagnesemia; Hypertension; Hyperlipidemia; - Immunization history:: Adult Immunizations up to date. - Social history:: Smoking status: Patient/guardian denies using tobacco. - Ebola Screening: : Patient negative for fever greater than or equal to 101.5 degrees Fahrenheit, and additional compatible Ebola Virus Disease symptoms Patient denies exposure to infectious person Patient denies travel to an Ebola-affected area in the 21 days before illness onset No symptoms or risks identified at this time. Screenin:49 Abuse screen: Denies threats or abuse. Denies injuries from another. Nutritional bp screening: No deficits noted. Tuberculosis screening: No symptoms or risk factors identified. Fall Risk None identified. Assessment: 11:45 General: Appears in no apparent distress. comfortable, Behavior is calm, cooperative, bp appropriate for age. Pain: Complains of pain in right leg. Neuro: Level of Consciousness is awake, alert, obeys commands, Oriented to person, place, time, situation, Appropriate for age. Cardiovascular: Rhythm is sinus rhythm. Respiratory: Airway is patent Respiratory effort is even, unlabored, Respiratory pattern is regular, symmetrical. GI: No signs and/or symptoms were reported involving the gastrointestinal system. : No signs and/or symptoms were reported regarding the genitourinary system. EENT: No deficits noted. Derm: No deficits noted. Musculoskeletal: Amputation of . Circulation, motion, and sensation intact. Range of motion: intact in all extremities. 12:45 Reassessment: VS STABLE, SURGERY C/S PENDING FOR DISPO. bp 13:58 Reassessment: [facility] CONTACTED FOR TRANSPORT HOME. bp 15:51 Reassessment: PT TRANSPORTED TO OUTPATIENT APPOINTMENT VIA W/C BY FAMILY. bp Vital Signs: 11:46 BP 127 / 75; Pulse 78; Resp 14; Temp 97.9; Pulse Ox 99% ; Weight 63.5 kg; bp 12:45 BP 132 / 62; Pulse 76; Resp 14; Pulse Ox 99% ; bp 13:45 BP 133 / 68; Pulse 74; Resp 14; Pulse Ox 100% ; bp ED Course: 11:29 Patient arrived in ED. bp 11:30 Sergio Edwards PA is PHCP. jr8 11:30 Michael Tamayo MD is Attending Physician. jr8 11:33 Triage completed. bp 11:46 Arm band placed on right wrist. bp 11:49 Patient has correct armband on for positive identification. Bed in low position. Call bp light in reach. Side rails up X2. 11:55 First set of blood cultures drawn by me. jb1 12:10 Rajeev Mercado, RN is Primary Nurse. bp 12:10 Second set of blood cultures drawn by me. jb1 12:11 Missed attempt(s): 22 gauge in right wrist. jb1 12:11 Initial lab(s) drawn, by me, sent to lab. Inserted saline lock: 22 gauge in right jb1 forearm, using aseptic technique. 12:19 Knee Right 2 View In Process Unspecified. EDMS 12:59 Matt Rondon MD is Referral Physician. jr8 14:01 No provider procedures requiring assistance completed. IV discontinued, intact, bp bleeding controlled, No redness/swelling at site. Pressure dressing applied. Administered Medications: No medications were administered Outcome: 13:02 Discharge ordered by . jr8 14:01 Discharged to residential. Report called to [facility] bp 14:01 Condition: stable 14:01 Discharge instructions given to patient, residential, Instructed on discharge instructions, follow up and referral plans. medication usage, Demonstrated understanding of instructions, follow-up care, medications, Prescriptions given X 1. 15:53 Patient left the ED. bp Signatures: Dispatcher [employer] EDMS Toby Pavon jb1 Sergio Edwards PA PA jr8 Rajeev Mercado, RN RN bp
[2018-06-10 13:32] LABS: Anisocytosis 2+; Blood Morphology Comment NOTED (NOT SEEN); Ovalocytes 1+; Platelet Estimate ADEQ; Urine White Blood Cell Casts OK
[2018-06-10 16:12] VITALS: TEMP 97.9
[2018-06-10 16:17] VITALS: BP 133/68; O2SAT 100
== END 2018-06-10 15:53 | disposition home or self-care (01) ==
LOC: ER 11:23
DX: T87.89 Other complications of amputation stump (principal); E11.22 Type 2 diabetes mellitus with diabetic chronic kidney disease; I12.0 Hypertensive chronic kidney disease with stage 5 chronic kidney disease or end stage renal disease; N18.6 End stage renal disease; F03.90 Unspecified dementia, unspecified severity, without behavioral disturbance, psychotic disturbance, mood disturbance, and anxiety; Z95.0 Presence of cardiac pacemaker; Z99.2 Dependence on renal dialysis; Z88.5 Allergy status to narcotic agent; Z88.6 Allergy status to analgesic agent; Z88.8 Allergy status to other drugs, medicaments and biological substances
CPT/HCPCS: 36415; 80048; 80076; 84145; 85025; 87040; 99284

== ENCOUNTER 2018-08-15 08:56 | Emergency (ER) | payer OTHER ==
--- OUTSIDE RECORDS SUMMARY | 2018-08-15 09:00 | XMS REPORT | Clinical Summary ---
:1935 Author Organization [facility] Address [address] [place] [address] Care Team Providers Name Role Phone Arslan [...] Edwin, Cv periocardiocentesis Cardiology Haider Aviles MD [[id number] (CPT)] 02/26/2018 Hospital Cardiology F[place], ESRD (end stage renal disease) ( 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); 03/11/2018 Stanton Ronquillo Anemia, unspecified type MD Shanika Purvis Thuyen T., MD 02/25/2018 Intake Access N/A after 08/14/2017 Family History Medical History Relation Name Comments [...] Taken Blood Pressure 150/86 03/11/2018 7:50 PM [facility] Pulse 84 03/11/2018 7:50 PM [facility] Temperature 36.1 C (97 F) 03/11/2018 7:50 PM [facility] Respiratory Rate 14 03/11/2018 7:50 PM [facility] Oxygen Saturation 96% 03/11/2018 7:50 PM [facility] Inhaled Oxygen Concentration - - Weight 57.7 kg (127 lb 2 oz) 03/08/2018 7:00 AM [facility] Height 160 cm (5' 3") 03/07/2018 12:36 PM [facility] Body Mass Index 22.52 03/07/2018 12:36 PM [facility] Plan of Treatment Health Maintenance Due Date Last Done Comments SHINGLES VACCINES (#1) 1986 65+ PNEUMOCOCCAL VACCINE (1 of 2 - PCV13) 2001 PNEUMOCOCCAL POLYSACCHARIDE VACCINE AGE 65 AND OVER 2001 INFLUENZA VACCINE 10/24/2018 Implants Implanted Type Area Fisheries Enforcement Officer Device Shelf Model / Identifier Expiration Serial / Date Lot Graft Vasclr Acuseal 40cm 6mm - [id number] - [id number] Vascular N/A: N/A [employer] 05/19/2019 [id number] / Implanted: Qty: 1 on 11/08/2016 by Herman Fraga MD Graft [id number] / [id number] Patch Cvs For Vasclr 0.5mm 1x9cm Acuseal - [id number] - [id number] Vascular N/ A: N/A [employer]ORE 01/09/2021 [id number] / Implanted: Qty: 1 on 03/07/2018 by Herman Fraga MD Graft [id number] / [id number] Procedures Procedure Name Priority Date/Time Associated Comments Diagnosis POC GLUCOSE Routine 03/11/2018 5:03 Results for this PM [facility] procedure are in the results section. POC GLUCOSE Routine 03/11/2018 1:26 Results for this PM [facility] procedure are in the results section. HC COMPLETE BLD COUNT Routine 03/11/2018 1:19 Results for this W/AUTO DIFF PM [facility] procedure are in the results section. ESTIMATED GFR Routine 03/11/2018 1:14 Results for this PM [facility] procedure are in the results section. PHOSPHORUS LEVEL Routine 03/11/2018 1:14 Results for this PM [facility] procedure are in the results section. BASIC METABOLIC PANEL Routine 03/11/2018 1:14 Results for this PM [facility] procedure are in the results section. POC GLUCOSE Routine 03/11/2018 11:37 Results for this AM [facility] procedure are in the results section. HEMODIALYSIS Routine 03/11/2018 10:07 AM [facility] POC GLUCOSE Routine 03/11/2018 7:44 Results for this AM [facility] procedure are in the results section. POC GLUCOSE Routine 03/10/2018 8:59 Results for this PM [facility] procedure are in the results section. POC GLUCOSE Routine 03/10/2018 5:21 Results for this PM [facility] procedure are in the results section. POC GLUCOSE Routine 03/10/2018 12:26 Results for this PM [facility] procedure are in the results section. POC GLUCOSE Routine 03/10/2018 7:56 Results for this AM [facility] procedure are in the results section. POC GLUCOSE Routine 03/09/2018 10:08 Results for this PM [facility] procedure are in the results section. POC GLUCOSE Routine 03/09/2018 6:35 Results for this PM [facility] procedure are in the results section. POC GLUCOSE Routine 03/09/2018 5:00 Results for this PM [facility] procedure are in the results section. POC GLUCOSE Routine 03/09/2018 11:51 Results for this AM [facility] procedure are in the results section. HEMODIALYSIS Routine 03/09/2018 10:41 AM [facility] ECHOCARDIOGRAM 2D Routine 03/09/2018 9:01 Results for this COMPLETE W MMODE AM [facility] procedure are in SPECTRAL COLOR DOPPLER the results (05905) section. POC GLUCOSE Routine 03/09/2018 7:42 Results for this AM [facility] procedure are in the results section. HC COMPLETE BLD COUNT Routine 03/09/2018 5:00 Results for this W/AUTO DIFF AM [facility] procedure are in the results section. ESTIMATED GFR Routine 03/09/2018 4:00 Results for this AM [facility] procedure are in the results section. PHOSPHORUS LEVEL Routine 03/09/2018 4:00 Results for this AM [facility] procedure are in the results section. BASIC METABOLIC PANEL Routine 03/09/2018 4:00 Results for this AM [facility] procedure are in the results section. POC GLUCOSE Routine 03/08/2018 10:26 Results for this PM [facility] procedure are in the results section. POC GLUCOSE Routine 03/08/2018 9:24 Results for this PM [facility] procedure are in the results section. TRANSFUSE RED BLOOD Routine 03/08/2018 9:05 CELLS PM [facility] TRANSFUSE RED BLOOD Routine 03/08/2018 7:49 CELLS PM [facility] HEMODIALYSIS Routine 03/08/2018 5:53 PM [facility] POC GLUCOSE Routine 03/08/2018 5:04 Results for this PM [facility] procedure are in the results section. POC GLUCOSE Routine 03/08/2018 3:15 Results for this PM [facility] procedure are in the results section. IR TUNNELED DIALYSIS Routine 03/08/2018 2:53 Results for this CATHETER PLACEMENT PM [facility] procedure are in the results section. POC GLUCOSE Routine 03/08/2018 11:17 Results for this AM [facility] procedure are in the results section. PREPARE RBC Timed 03/08/2018 10:58 Results for this AM [facility] procedure are in the results section. TYPE AND SCREEN Timed 03/08/2018 10:58 Results for this AM [facility] procedure are in the results section. POC GLUCOSE Routine 03/08/2018 7:17 Results for this AM [facility] procedure are in the results section. SMEAR REVIEW Routine 03/08/2018 4:37 Results for this AM [facility] procedure are in the results section. HC COMPLETE BLD COUNT Routine 03/08/2018 4:37 Results for this W/AUTO DIFF AM [facility] procedure are in the results section. ESTIMATED GFR Routine 03/08/2018 4:00 Results for this AM [facility] procedure are in the results section. PHOSPHORUS LEVEL Routine 03/08/2018 4:00 Results for this AM [facility] procedure are in the results section. BASIC METABOLIC PANEL Routine 03/08/2018 4:00 Results for this AM [facility] procedure are in the results section. POC GLUCOSE Routine 03/07/2018 9:55 Results for this PM [facility] procedure are in the results section. POC GLUCOSE Routine 03/07/2018 6:15 Results for this PM [facility] procedure are in the results section. POC GLUCOSE Routine 03/07/2018 4:32 Results for this PM [facility] procedure are in the results section. POC GLUCOSE Routine 03/07/2018 2:32 Results for this PM [facility] procedure are in the results section. MS AN ELECTIVE Routine 03/07/2018 1:32 ENDOTRACHEAL AIRWAY PM [facility] Procedure Note - Gael Coffman MD - 03/07/2018 1:32 PM [facility] ANESTHESIA INTUBATION Performed by: Gael Coffman MD [...] 1 THROMBECTOMY, GRAFT, AV 03/07/2018 1:10 PM [facility] AV graft malfunction, initial encounter (HCC) Case Notes C-ARM, R/S PER RIYA 03/06 KMM Special Needs C-ARM SODIUM LEVEL, SYRINGE STAT 03/07/2018 12:40 PM Results for this [facility] procedure are in the results section. POTASSIUM, SYRINGE STAT 03/07/2018 12:40 PM Results for this [facility] procedure are in the results section. HEMOGLOBIN, SYRINGE STAT 03/07/2018 12:40 PM Results for this [facility] procedure are in the results section. GLUCOSE LEVEL, SYRINGE STAT 03/07/2018 12:40 PM Results for this [facility] procedure are in the results section. HEMODIALYSIS Routine 03/07/2018 12:22 PM [facility] POC GLUCOSE Routine 03/07/2018 11:13 AM Results for this [facility] procedure are in the results section. POC GLUCOSE Routine 03/07/2018 7:46 AM Results for this [facility] procedure are in the results section. POC GLUCOSE Routine 03/07/2018 5:13 AM Results for this [facility] procedure are in the results section. POC GLUCOSE Routine 03/07/2018 1:35 AM Results for this [facility] procedure are in the results section. POC GLUCOSE Routine 03/06/2018 9:23 PM Results for this [facility] procedure are in the results section. POC GLUCOSE Routine 03/06/2018 4:05 PM Results for this [facility] procedure are in the results section. POC GLUCOSE Routine 03/06/2018 12:51 PM Results for this [facility] procedure are in the results section. HEMODIALYSIS Routine 03/06/2018 12:08 PM [facility] POC GLUCOSE Routine 03/06/2018 7:30 AM Results for this [facility] procedure are in the results section. CLOSTRIDIUM DIFFICILE TOXIN Routine 03/06/2018 6:20 AM Results for this [facility] procedure are in the results section. HC COMPLETE BLD COUNT Routine 03/06/2018 4:20 AM Results for this W/AUTO DIFF [facility] procedure are in the results section. ESTIMATED GFR Routine 03/06/2018 4:00 AM Results for this [facility] procedure are in the results section. PROTHROMBIN TIME WITH INR Routine 03/06/2018 4:00 AM Results for this [facility] procedure are in the results section. PHOSPHORUS LEVEL Routine 03/06/2018 4:00 AM Results for this [facility] procedure are in the results section. BASIC METABOLIC PANEL Routine 03/06/2018 4:00 AM Results for this [facility] procedure are in the results section. POC GLUCOSE Routine 03/05/2018 10:56 PM Results for this [facility] procedure are in the results section. POC GLUCOSE Routine 03/05/2018 5:37 PM Results for this [facility] procedure are in the results section. POC GLUCOSE Routine 03/05/2018 12:11 PM Results for this [facility] procedure are in the results section. TROPONIN Timed 03/05/2018 8:00 AM Results for this [facility] procedure are in the results section. POC GLUCOSE Routine 03/05/2018 7:27 AM Results for this [facility] procedure are in the results section. ESTIMATED GFR Routine 03/05/2018 4:15 AM Results for this [facility] procedure are in the results section. PROTHROMBIN TIME WITH INR Routine 03/05/2018 4:15 AM Results for this [facility] procedure are in the results section. HC COMPLETE BLD COUNT Routine 03/05/2018 4:15 AM Results for this W/AUTO DIFF [facility] procedure are in the results section. PHOSPHORUS LEVEL Routine 03/05/2018 4:15 AM Results for this [facility] procedure are in the results section. MAGNESIUM LEVEL Routine 03/05/2018 4:15 AM Results for this [facility] procedure are in the results section. BASIC METABOLIC PANEL Routine 03/05/2018 4:15 AM Results for this [facility] procedure are in the results section. TROPONIN Timed 03/05/2018 4:15 AM Results for this [facility] procedure are in the results section. POC GLUCOSE Routine 03/04/2018 9:07 PM Results for this [facility] procedure are in the results section. XR CHEST 1 VW PORTABLE STAT 03/04/2018 7:03 PM Results for this [facility] procedure are in the results section. TYPE AND SCREEN Routine 03/04/2018 6:09 PM Results for this [facility] procedure are in the results section. POC GLUCOSE Routine 03/04/2018 5:58 PM Results for this [facility] procedure are in the results section. TROPONIN Timed 03/04/2018 4:00 PM Results for this [facility] procedure are in the results section. TROPONIN Routine 03/04/2018 2:17 PM Results for this [facility] procedure are in the results section. ECG 12-LEAD Routine 03/04/2018 1:48 PM Results for this [facility] procedure are in the results section. POC GLUCOSE Routine 03/04/2018 1:39 PM Results for this [facility] procedure are in the results section. POC GLUCOSE Routine 03/04/2018 11:53 AM Results for this [facility] procedure are in the results section. US DUPLEX HEMODIALYSIS AVG STAT 03/04/2018 9:20 AM Results for this AVF ACCESS [facility] procedure are in the results section. HEMODIALYSIS Routine 03/04/2018 9:05 AM [facility] POC GLUCOSE Routine 03/04/2018 7:47 AM Results for this [facility] procedure are in the results section. PROTHROMBIN TIME WITH INR Routine 03/04/2018 4:20 AM Results for this [facility] procedure are in the results section. HC COMPLETE BLD COUNT Routine 03/04/2018 4:20 AM Results for this W/AUTO DIFF [facility] procedure are in the results section. ESTIMATED GFR Routine 03/04/2018 4:00 AM Results for this [facility] procedure are in the results section. FERRITIN LEVEL Routine 03/04/2018 4:00 AM Results for this [facility] procedure are in the results section. TOTAL IRON BINDING CAPACITY Routine 03/04/2018 4:00 AM Results for this [facility] procedure are in the results section. PHOSPHORUS LEVEL Routine 03/04/2018 4:00 AM Results for this [facility] procedure are in the results section. MAGNESIUM LEVEL Routine 03/04/2018 4:00 AM Results for this [facility] procedure are in the results section. BASIC METABOLIC PANEL Routine 03/04/2018 4:00 AM Results for this [facility] procedure are in the results section. POC GLUCOSE Routine 03/03/2018 9:09 PM Results for this [facility] procedure are in the results section. POC GLUCOSE Routine 03/03/2018 5:17 PM Results for this [facility] procedure are in the results section. POC GLUCOSE Routine 03/03/2018 11:38 AM Results for this [facility] procedure are in the results section. POC GLUCOSE Routine 03/03/2018 7:23 AM Results for this [facility] procedure are in the results section. ESTIMATED GFR Routine 03/03/2018 4:00 AM Results for this [facility] procedure are in the results section. BASIC METABOLIC PANEL Routine 03/03/2018 4:00 AM Results for this [facility] procedure are in the results section. HC COMPLETE BLD COUNT Routine 03/03/2018 3:30 AM Results for this W/AUTO DIFF [facility] procedure are in the results section. HEMODIALYSIS CATHETER Routine 03/02/2018 8:59 PM ESRD (end Results for this PLACEMENT [facility] stage renal procedure are in disease) (HCC) the results section. POC GLUCOSE Routine 03/02/2018 6:33 PM Results for this [facility] procedure are in the results section. HEMODIALYSIS Routine 03/02/2018 5:35 PM [facility] POC GLUCOSE Routine 03/02/2018 5:26 PM Results for this [facility] procedure are in the results section. POC GLUCOSE Routine 03/02/2018 11:35 AM Results for this [facility] procedure are in the results section. POC GLUCOSE Routine 03/02/2018 7:28 AM Results for this [facility] procedure are in the results section. ESTIMATED GFR Routine 03/02/2018 4:00 AM Results for this [facility] procedure are in the results section. PHOSPHORUS LEVEL Routine 03/02/2018 4:00 AM Results for this [facility] procedure are in the results section. BASIC METABOLIC PANEL Routine 03/02/2018 4:00 AM Results for this [facility] procedure are in the results section. POC GLUCOSE Routine 03/01/2018 9:22 PM Results for this [facility] procedure are in the results section. POC GLUCOSE Routine 03/01/2018 5:40 PM Results for this [facility] procedure are in the results section. POC GLUCOSE Routine 03/01/2018 12:11 PM Results for this [facility] procedure are in the results section. POC GLUCOSE Routine 03/01/2018 7:54 AM Results for this [facility] procedure are in the results section. POC GLUCOSE Routine 03/01/2018 4:34 AM Results for this [facility] procedure are in the results section. HC COMPLETE BLD COUNT Routine 03/01/2018 4:30 AM Results for this W/AUTO DIFF [facility] procedure are in the results section. ESTIMATED GFR Routine 03/01/2018 4:00 AM Results for this [facility] procedure are in the results section. PHOSPHORUS LEVEL Routine 03/01/2018 4:00 AM Results for this [facility] procedure are in the results section. BASIC METABOLIC PANEL Routine 03/01/2018 4:00 AM Results for this [facility] procedure are in the results section. POC GLUCOSE Routine 02/28/2018 9:14 PM Results for this [facility] procedure are in the results section. POC GLUCOSE Routine 02/28/2018 4:04 PM Results for this [facility] procedure are in the results section. HEMODIALYSIS Routine 02/28/2018 12:09 PM [facility] POC GLUCOSE Routine 02/28/2018 11:34 AM Results for this [facility] procedure are in the results section. ECHOCARDIOGRAM 2D COMPLETE Routine 02/28/2018 9:13 AM Results for this W MMODE SPECTRAL COLOR [facility] procedure are in DOPPLER (97402) the results section. POC GLUCOSE Routine 02/28/2018 9:09 AM Results for this [facility] procedure are in the results section. CV INTRACARDIAC Routine 02/28/2018 8:48 AM Results for this ECHOCARDIOGRAM [facility] procedure are in the results section. CV PERICARDIOCENTESIS Routine 02/28/2018 8:48 AM Results for this [facility] procedure are in the results section. PROTEIN, MISC FLUID Routine 02/28/2018 8:35 AM Results for this [facility] procedure are in the results section. LDH, MISC FLUID Routine 02/28/2018 8:35 AM Results for this [facility] procedure are in the results section. GLUCOSE LEVEL, MISC FLUID Routine 02/28/2018 8:35 AM Results for this [facility] procedure are in the results section. CELL COUNT AND Routine 02/28/2018 8:35 AM Results for this DIFFERENTIAL, BODY FLUID [facility] procedure are in the results section. CYTOLOGY Routine 02/28/2018 6:32 AM Results for this (NON-GYNECOLOGICAL) REQUEST [facility] procedure are in the results section. ESTIMATED GFR Routine 02/28/2018 3:50 AM Results for this [facility] procedure are in the results section. PHOSPHORUS LEVEL Routine 02/28/2018 3:50 AM Results for this [facility] procedure are in the results section. MAGNESIUM LEVEL Routine 02/28/2018 3:50 AM Results for this [facility] procedure are in the results section. BASIC METABOLIC PANEL Routine 02/28/2018 3:50 AM Results for this [facility] procedure are in the results section. HC COMPLETE BLD COUNT Routine 02/28/2018 3:50 AM Results for this W/AUTO DIFF [facility] procedure are in the results section. PARTIAL THROMBOPLASTIN TIME Routine 02/28/2018 3:50 AM Results for this (PTT) [facility] procedure are in the results section. PROTHROMBIN TIME WITH INR Routine 02/28/2018 3:50 AM Results for this [facility] procedure are in the results section. POC GLUCOSE Routine 02/27/2018 9:20 PM Results for this [facility] procedure are in the results section. POC GLUCOSE Routine 02/27/2018 6:06 PM Results for this [facility] procedure are in the results section. POC GLUCOSE Routine 02/27/2018 12:08 PM Results for this [facility] procedure are in the results section. POC GLUCOSE Routine 02/27/2018 9:44 AM Results for this [facility] procedure are in the results section. POC GLUCOSE Routine 02/27/2018 8:14 AM Results for this [facility] procedure are in the results section. HC COMPLETE BLD COUNT Routine 02/27/2018 4:20 AM Results for this W/AUTO DIFF [facility] procedure are in the results section. ESTIMATED GFR Routine 02/27/2018 4:00 AM Results for this [facility] procedure are in the results section. PHOSPHORUS LEVEL Routine 02/27/2018 4:00 AM Results for this [facility] procedure are in the results section. BASIC METABOLIC PANEL Routine 02/27/2018 4:00 AM Results for this [facility] procedure are in the results section. POC GLUCOSE Routine 02/26/2018 10:28 PM Results for this [facility] procedure are in the results section. POC GLUCOSE Routine 02/26/2018 5:50 PM Results for this [facility] procedure are in the results section. POC GLUCOSE Routine 02/26/2018 2:30 PM Results for this [facility] procedure are in the results section. HEMODIALYSIS Routine 02/26/2018 2:04 PM [facility] HEPATITIS B SURFACE ANTIGEN STAT 02/26/2018 2:00 PM Results for this [facility] procedure are in the results section. US DUPLEX HEMODIALYSIS AVG STAT 02/26/2018 12:15 PM Results for this AVF ACCESS [facility] procedure are in the results section. PROTHROMBIN TIME WITH INR Routine 02/26/2018 10:20 AM Results for this [facility] procedure are in the results section. HEMOGLOBIN A1C Routine 02/26/2018 10:20 AM Results for this [facility] procedure are in the results section. XR CHEST 1 VW PORTABLE STAT 02/26/2018 9:39 AM Results for this [facility] procedure are in the results section. POC GLUCOSE Routine 02/26/2018 9:10 AM Results for this [facility] procedure are in the results section. ECG 12-LEAD STAT 02/26/2018 8:53 AM Results for this [facility] procedure are in the results section. ECHOCARDIOGRAM 2D COMPLETE STAT 02/26/2018 8:17 AM Results for this W MMODE SPECTRAL COLOR [facility] procedure are in DOPPLER (72708) the results section. POC GLUCOSE Routine 02/26/2018 4:57 AM Results for this [facility] procedure are in the results section. PREPARE RBC Timed 02/26/2018 1:50 AM [facility] ESTIMATED GFR STAT 02/26/2018 1:50 AM Results for this [facility] procedure are in the results section. TYPE AND SCREEN Timed 02/26/2018 1:50 AM Results for this [facility] procedure are in the results section. PROTHROMBIN TIME WITH INR STAT 02/26/2018 1:50 AM Results for this [facility] procedure are in the results section. COMPREHENSIVE METABOLIC STAT 02/26/2018 1:50 AM Results for this PANEL [facility] procedure are in the results section. HC COMPLETE BLD COUNT STAT 02/26/2018 1:50 AM Results for this W/AUTO DIFF [facility] procedure are in the results section. after 08/14/2017 Results POC glucose (03/11/2018 5:03 PM [facility])Only the most recent of67 resultswithin the time period is included. POC glucose 236 (H) 65 - 99 mg/dL [facility] Comment: [facility] Notified RN No Action Needed Meter ID: [id number] Wood Ski Maker: Pk Santillan Specimen Performing Organization Address City/State/Zipcode Phone Number [facility] DEPARTMENT OF PATHOLOGY AND [address] [place] [address] GENOMIC MEDICINE [address] [address] CBC with platelet and differential (03/11/2018 1:19 PM [facility])Only the most recent of11 resultswithin the time period is included. WBC 11.05 (H) 4.50 - 11.00 [facility] k/uL HOSPITAL RBC 3.55 (L) 4.20 - 5.50 [facility] m/uL HOSPITAL HGB 10.0 (L) 12.0 - 16.0 [facility] g/dL HOSPITAL HCT 31.6 (L) 37.0 - 47.0 % [facility] MCV 89.0 82.0 - 100.0 [facility] MCH 28.2 27.0 - 34.0 pg [facility] MCHC 31.6 31.0 - 37.0 [facility] R[facility] - SD 58.7 (H) 37.0 - 55.0 fL [facility] MPV 11.9 8.8 - 13.2 fL [facility] Platelet count 246 150 - 400 k/uL [facility] Nucleated RBC 0.00 /100 WBC [facility] Neutrophils 78.5 (H) 39.0 - 69.0 % [facility] Lymphocytes 9.2 (L) 25.0 - 45.0 % [facility] Monocytes 6.8 0.0 - 10.0 % [facility] Eosinophils 4.0 0.0 - 5.0 % [facility] Basophils 0.5 0.0 - 1.0 % [facility] Immature granulocytes 1.0Comment: 0.0 - 1.0 % [facility] "Immature HOSPITAL granulocytes" (promyelocytes , myelocytes, metamyelocytes ) Specimen Blood Performing Organization Address City/State/Zipcode Phone Number [facility] DEPARTMENT OF PATHOLOGY AND [address] [place] [address] GENOMIC MEDICINE [facility] [address] [place] [address] Estimated GFR (03/11/2018 1:14 PM [facility])Only the most recent of12 resultswithin the time period is included. Pathologist [facility] Estimated GFR 11 (A) mL/min/1.73 [facility] Comment: HOSPITAL CatergoryUnitsInterpretation G1 >=90 Normal or high G2 60-89Mildly decreased [id number] to moderately decreased [id number] to severely decreased G4 15-29Severely decreased G5 <15Kidney failure The eGFR was calculated using the Chronic Kidney Disease Epidemiology Collaboration (CKD-EPI) equation. Interpretation is based on recommendations of the National Kidney Foundation-Kidney Disease Outcomes Quality Initiative (NKF-KDOQI) published in 2014. Specimen Plasma specimen Performing Organization Address City/[facility] Cent[facility] Phone Number [facility] DEPARTMENT OF PATHOLOGY AND [address] [place] [address] Phosphorus level (03/11/2018 1:14 PM [facility])Only the most recent of10 resultswithin the time period is included. [facility] Phosphorus 2.8 2.4 - 4.5 mg/dL [facility] Specimen Plasma specimen Performing Organization Address [facility] Phone Number [facility] DEPARTMENT OF PATHOLOGY AND [address] [place], [place] [phone] Basic metabolic panel (03/11/2018 1:14 PM BARREL RACER)Only the most recent of11 resultswithin the time period is included. Sodium 135 135 - 148 mEq/L [facility] Potassium 4.0 3.5 - 5.0 mEq/L [facility] Chloride 95 (L) 98 - 112 mEq/L [facility] CO2 27 24 - 31 mEq/L [facility] Anion gap 13@ANIO 7 - 15 mEq/L [facility] BUN 28 (H) 8 - 23 mg/dL [facility] Creatinine 3.75 (H) 0.50 - 0.90 mg/dL [facility] Glucose 186 (H) 65 - 99 mg/dL [facility] Calcium 9.3 8.8 - 10.2 mg/dL [facility] Specimen Plasma specimen Performing Organization Address [facility] Phone Number [facility] DEPARTMENT OF PATHOLOGY AND [address] [place] [address] Echocardiogram complete w contrast and 3D if needed (03/09/2018 9:01 AM BARREL RACER) Specimen Narrative Performed At [facility] Echocardiography Report [id number] [facility] [address] [address] Pat.Name:YEYO COLLINS.ID:[id number] .Date: 03/09/2018Refer.MD:SCOTT PENA MD Exam Time: 9:04:00 AMStudy Type:Routine Echo Height:63inWeight: 127lb BSA: 1.6 l5EFVKrx:1935,82Y Sex: FEMALEBP:140/62 HR:86 bpmSonogrphr: Mariposa Dent [facility] Pat. Stat.:Inpatient Room:[facility] Study Status:Final Echo Event ID:[id number] Order ID:[id number] Reason for Study:Pericardial effusion History / Clinical:Congestive [...] RAPof 15 mmHg. MEASUREMENTS: 2D Parasternal Long [place] Ds4.5 cmAo An2.4 cm LVIDd4.1 cmIndex2.6 cm/m Ao Rtd 3 cm Index1.9 cm/m LVIDs2.4 cmLV Mtrm411.4 g(87-129) LV%fs 41.5 % LVM Cvmqd893.4 g/m2 IVSd 1.3 cmRWT0.7 LVPWd1.4 cmLVOT 1.8 cm LA Sng Plane LA Area 27.5 cm2(8.8-23.4) LA Vol90.4 ml Index56.5 ml/m LA LngAx 6.9 cm DOPPLER AV For Flow/ZHENG AV pkVel 219.1 cm/s (100-170) AV AC/ET 0.3 AV mnVel 154.4 cm/Marilyn TVI44.5 cm AV pkPG 19.2 mmHgAVpkAcRt 6985.6 cm/s2 AV Mean G 11.2 mmHgAV PtMw747.3 cm/s2 AV AC 88 msec (83-118) AV [...] Radiology Results In - 03/09/2018 4:57 PM [facility]REL RACER Echocardiography Report [address] [place] [address] Pat.Name: YEYO COLLINS Pat.ID: [id number] .Date: 03/09/2018 Refer.MD: SCOTT PENA MD Exam Time: 9:04:00 AM Study Type:Routine Echo Height: 63in Weight: 127lb BSA: 1.6 m2 Age: 3 1935,82Y Sex: FEMALE BP: 140/62 HR: 86 bpm Sonogrphr: PARTHA Wallace Pat. Stat.:Inpatient Room: D 1005 Study Status:Final Echo Event ID:[id number] Order ID: [id number] Reason for Study:Pericardial effusion History / Clinical:Congestive [...] of 15 mmHg. MEASUREMENTS: 2D Parasternal Long [place] Ds 4.5 cm Ao An 2.4 [...] City/State/Zipcode Phone Number [facility] [address] [place] [address] Transfuse RBC (03/08/2018 9:05 PM BARREL RACER)Only the most recent of3 resultswithin the time period is included.IR Tunneled Dialysis Catheter Placement (03/08/2018 2:53 PM BARREL RACER) Specimen Narrative Performed At Procedure: Placement of tunneled dialysis catheter [facility] Clinical History: End-stage renal disease Sedation: Versed and fentanyl were utilized for monitored conscious sedation during the procedure. The patient was transferred to the recovery room at the end of the procedure for further monitoring. Mlfj-ll-adqy time 20 minutes Anesthesia: Local Radiation dose: [...] the right atrium under fluoroscopy. A 4 Indonesian catheter was placed. Local anesthesia was then administered from the infraclavicular region to the initial puncture site. The 28 cm Palindrome dialysis catheter was brought through the tunnel. An Amplatz guidewire was advanced through the 4 Indonesian catheter and after dilatation, the dialysis catheter [...] above. Blood Loss: Less than 5 mL [facility]-[id number] Procedure Note Hm Interface, Radiology Results Incoming - 03/08/2018 3:04 PM BARREL RACER Procedure: Placement of tunneled dialysis catheter Clinical History: End-stage renal disease Sedation: Versed and fentanyl were utilized for monitored conscious sedation during the procedure. The patient was transferred to the recovery room at the end of the procedure for further monitoring. Imxl-vf-diwg time 20 minutes Anesthesia: Local Radiation dose: [...] the right atrium under fluoroscopy. A 4 Indonesian catheter was placed. Local anesthesia was then administered from the infraclavicular region to the initial puncture site. The 28 cm Palindrome dialysis catheter was brought through the tunnel. An Amplatz guidewire was advanced through the 4 Indonesian catheter and after dilatation, the dialysis catheter [...] above. Blood Loss: Less than 5 mL [facility]-[id number] Performing Organization Address City/State/[facility] Phone Number [facility] [address] [place] [address] Prepare RBC, 2 Units (03/08/2018 10:58 AM BARREL RACER) Product name Red Blood Cells [place] [id number], [facility] Unit number [id number] [facility] Product code [id number] [facility] Dispense status Transfused [facility] Blood expiration [facility] Blood type code 6200 [facility] Blood type A POSITIVE [facility] Product name Red Blood Cells [place] [id number], [facility] Unit number [id number] [facility] Product code [id number] [facility] Dispense status Transfused [facility] Blood expiration [id number] [facility] Blood type code 6200 [facility] Blood type A POSITIVE [facility] Specimen Performing Organization Address City/[facility] [place] [facility] Phone Number [facility] DEPARTMENT OF PATHOLOGY AND [address] [place] [phone] [place] [address] Type and screen (03/08/2018 10:58 AM BARREL RACER)Only the most recent of3 resultswithin the time period is included. ABO grouping A [facility] Rh type POS [facility] Antibody screen (gel) NEG [facility] Specimen Blood Performing Organization Address City/[facility] [place] [facility] Phone Number [facility] DEPARTMENT OF PATHOLOGY AND [address] [place] [phone] [place] [address] Smear review (03/08/2018 4:37 AM BARREL RACER) Platelet slide review Alex adequate [facility] Anisocytosis Moderate [facility] Polychromasia Moderate [facility] Schistocytes Occasional [facility] Ovalocytes Moderate [facility] [place] cells Moderate (A) [facility] Acanthocytes Occasional [facility] Specimen Performing Organization Address City/[facility] Phone Number [facility] DEPARTMENT OF PATHOLOGY AND [address] [place] [phone] [place] [address] Sodium level, syringe (03/07/2018 12:40 PM BARREL RACER) Sodium, syringe 130 (L) 135 - 148 mEq/L [facility] Specimen Blood Performing Organization Address City/[facility] [place] [facility] Phone Number [facility] DEPARTMENT OF PATHOLOGY AND [address] [place] [address] [address] Potassium, syringe (03/07/2018 12:40 PM BARREL RACER) Potassium, syringe 4.6 3.5 - 5.0 mEq/L [facility] Specimen Blood Performing Organization Address City/[facility]/Zipcode Phone Number [facility] DEPARTMENT OF PATHOLOGY AND [address] [place] [address] [address] Hemoglobin, syringe (03/07/2018 12:40 PM BARREL RACER) Hemoglobin, syringe 7.5 (L) 12.0 - 16.0 g/dL [facility] Specimen Blood Performing Organization Address [facility] [place] [facility] Phone Number [facility] DEPARTMENT OF PATHOLOGY AND [address] [place] [phone] [place] [address] Glucose level, syringe (03/07/2018 12:40 PM BARREL RACER) Glucose, syringe 132 (H) 65 - 99 mg/dL [facility] Specimen Blood Performing Organization Address [facility] [place] [facility] Phone Number [facility] DEPARTMENT OF PATHOLOGY AND [address] [place] [phone] [place] [address] C difficile toxin (03/06/2018 6:20 AM BARREL RACER) Pathologist [facility] Clostridium No Clostridium difficle toxin present [facility] difficile toxin Comment: HOSPITAL Specimen Information Specimen Source: Stool Specimen Site: Nonpreserved Specimen Stool - Nonpreserved Performing Organization Address [facility] Phone Number [facility] DEPARTMENT OF PATHOLOGY AND [address] [place] [address] Prothrombin time with INR (03/06/2018 4:00 AM BARREL RACER)Only the most recent of6 resultswithin the time period is included. Pathologist [facility] Prothrombin time 14.2 11.5 - 14.5 [facility] INR 1.1 [place] Comment: MEHRAN [facility] International Normalized Ratio (INR) is a therapeutic HOSPITAL monitoring tool for patients who are stable on oral anticoagulant therapy. An INR of 2.0-3.0 is suggested for deep vein thrombosis/pulmonary embolism. Specimen Blood Performing Organization Address [facility] [place] [facility] Phone Number [facility] DEPARTMENT OF PATHOLOGY AND [address] [place] [address] Troponin (03/05/2018 8:00 AM BARREL RACER)Only the most recent of4 resultswithin the time period is included. Pathologist [facility] Troponin <0.30 0.00 - 0.30 [facility] Comment: ng/mL HOSPITAL 0.30 - 1.49 ng/mlMay indicate increased risk of acute coronary syndrome. >=1.5 ng/mlConsistent with acute myocardial infarction. The diagnostic value of a single normal or non-diagnostic result is questionable.Serial samples at 2-6 hour intervals are required to rule out acute myocardial injury. Specimen Plasma specimen Performing Organization Address City/State/Zipcode Phone Number [facility] DEPARTMENT OF PATHOLOGY AND [address] [place] [phone] [place] [address] Magnesium level (03/05/2018 4:15 AM BARREL RACER)Only the most recent of3 resultswithin the time period is included. Magnesium 1.7 1.6 - 2.4 mg/dL [facility] Specimen Plasma specimen Performing Organization Address [facility] [place] [facility] Phone Number [facility] DEPARTMENT OF PATHOLOGY AND [address] [place] [phone] [place] [address] XR Chest 1 Vw Portable (03/04/2018 7:03 PM BARREL RACER)Only the most recent of2 resultswithin the time period is included. Specimen Narrative Performed At EXAMINATION:XR CHEST 1 VW [...] versus pleural thickening is unchanged. No pneumothorax. [facility]-[id number] Procedure Note Interface, Radiology Results Incoming - 03/04/2018 7:16 PM BARREL RACER EXAMINATION: XR CHEST 1 VW PORTABLE CLINICAL [...] versus pleural thickening is unchanged. No pneumothorax. [facility]-[id number] Performing Organization Address City/[facility] [place] [facility] Cent[facility]ode Phone Number [facility] [address] [place] [address] ECG 12 lead (03/04/2018 1:48 PM BARREL RACER)Only the most recent of2 resultswithin the time [...] inversion less evident in Anterolateral leads-QT has [facility] MUSE lengthened- 5: 22:27 PM Specimen Narrative Performed At Performing Organization Address [facility] [place] [facility] Phone Number [facility] MUSE [address] duplex hemodialysis avg avf access (03/04/2018 9:20 AM BARREL RACER)Only the most recent of2 resultswithin the time period is included. Specimen Narrative Performed At [facility] Vascular Ultrasound Laboratory AV Graft - Fistula Report [address] [place] [address] Pat.Name:YEYO COLLINS.ID:[id number] St.Date: 03/04/2018Refer.MD:SCOTT PENA MD Exam Time: 8:11:00 AMStudy Type:AV Graft - Fistula Height:63inWeight: 123lb BSA: 1.57 m2 DOBAge:1935,82Y Sex: FEMALESonogrphr: [place]la RVT Pat. Stat.:Inpatient Room:[address] TapeVol: , CPT - 4: 37351 Echo Event ID:[id number] Order ID:[id number] Reason for Study:AV-graft without thrill and buit.History [...] BrachialProximal-third 82 cm/sec Mid-third47 cm/sec Distal-third40 cm/sec Xvmzvqlubwq38wx/sec,0cm/sec AV-GraftJaxta0 cm/sec Arterial aneg5pj/sec Venous sqzk7sf/sec Flnvwebcezg05zc/sec Axillary VeinDistal-xdlib42ie/sec Subclavian Vein Mid-oyzpl88nw/sec VOLUME FLOW: Nxvnpwyo66 cc/min 83 cc/min PRELIMINARY FINDINGS: 1. Occluded [...] Radiology Results In - 03/04/2018 2:26 PM [facility] Vascular Ultrasound Laboratory AV Graft - Fistula Report [address] [address] [facility].Name: YEYO COLLINS Pat.ID: [id number] .Date: 03/04/2018 Refer.MD: SCOTT PENA MD Exam Time: 8:11:00 AM Study Type:AV Graft - Fistula Height: 63in Weight: 123lb BSA: 1.57 m2 Age: 4 1935,82Y Sex: FEMALE Sonogrphr: [place]la RVT Pat. Stat.:Inpatient Room: [address] Tape Vol: AMOR, CPT - 4: 34205 Echo Event ID:[id number] Order ID: [id number] Reason for Study:AV-graft without thrill and buit. [...] Jacques Mattson MD, RPVI Performing Organization Address [facility] [place] [facility] Centercode Phone Number [facility] [address] [place] [address] Total iron binding capacity (03/04/2018 4:00 AM BARREL RACER) Iron level 36 (L) 37 - 145 ug/dL [facility] Iron binding capacity 118 (L) 200 - 400 ug/dL [facility] % Saturation 30.5 15.0 - 38.0 % [facility] Specimen Plasma specimen Performing Organization Address City/[facility] [place] [facility] Phone Number [facility] DEPARTMENT OF PATHOLOGY AND [address] [place] [phone] [place] [address] Ferritin level (03/04/2018 4:00 AM BARREL RACER) Ferritin level 978 (H) 13 - 150 ng/mL [facility] Specimen Plasma specimen Performing Organization Address [facility] Phone Number [facility] DEPARTMENT OF PATHOLOGY AND [address] [place] [address] [address] HEMODIALYSIS CATHETER PLACEMENT (03/02/2018 8:59 PM BARREL RACER) Narrative Performed At Chava Hill MD 03/03/2018 12:44 PM Hemodialysis catheter placement Date/Time: 03/02/2018 8:59 PM Performed by: Rodriguez Edwards MD Authorized by: Chava Hill MD Consent: Consent obtained:Verbal and written Consent given by:Patient Risks discussed:Arterial puncture, incorrect placement, nerve damage, infection and bleeding Alternatives discussed:Delayed treatment [place] protocol: Procedure explained and questions answered to [...] and 3D if needed (02/28/2018 9:13 AM [facility]REL RACER) Specimen Narrative Performed At [facility] Echocardiography Report [address]Name:YEYO COLLINS MPat.ID:[id number] .Date: 02/28/2018 Refer.MD:SCOTT PENA MD Exam Time: 8:01:00 AMStudy Type:Routine Echo Height:63inWeight: 151lb BSA: 1.72 m2 DOBAge:1935,82Y Sex: FEMALEBP:126/62 HR:86 bpmSonogrphr: PARTHA Grant Pat. Stat.:Inpatient Room:[place] [address] Study Status:Final Echo Event ID:[id number] Order ID:[id number] Reason for Study:Periocardiocentesis History / Clinical:Congestive Heart [...] Radiology Results In - 02/28/2018 4:12 PM [facility] Echocardiography Report [address] [place] [address] Pat.Name: YEYO COLLINS Pat.ID: [id number] .Date: 02/28/2018 Refer.MD: SCOTT PENA MD Exam Time: 8:01:00 AM Study Type:Routine Echo Height: 63in Weight: 151lb BSA: 1.72 m2 Age: 4 1935,82Y Sex: FEMALE BP: 126/62 HR: 86 bpm Sonogrphr: PARTHA Grant Pat. Stat.:Inpatient Room: [place] [address] Study Status:Final Echo Event ID:[id number] Order ID: [id number] Reason for Study:Periocardiocentesis History / Clinical:Congestive Heart [...] PM Edwin Sage M.D. Performing Organization Address City/State/[facility] [place] [facility] Phone Number [facility] [address] [place] [address] Cv labor mediator procedure (02/28/2018 8:48 AM BARREL RACER) Specimen Narrative Performed At S/p successful pericardiocentesis assisted with US and fluoroscopy. [facility] Micropuncture catheter used to obtain access to pericardial space and exchange for pericardial drain. Performing Organization Address City/[facility]/Zipcode Phone Number [facility] [address] [place] [address] Cell count and differential, body fluid (02/28/2018 8:35 AM BARREL RACER) [facility] fluid type Pericardial [facility] Color, fluid Red [facility] Appearance, fluid Hazy [facility] RBC, fluid 170,000 /CMM [facility] Nucleated cells, fluid 137 /CMM [facility] Fluid mononuclear cell See Diff [facility] Neutrophils, fluid 40 % [facility] Lymphocytes, fluid 23 % [facility] Eosinophils, fluid 5 % [facility] Macrophages, fluid 32 % [facility] Specimen Fluid Narrative Performed At Pericardial fluid [facility] DEPARTMENT OF PATHOLOGY AND GENOMIC MEDICINE Performing Organization Address City/[facility] [place] [facility]ode Phone Number [facility] DEPARTMENT OF PATHOLOGY AND [address] [place] [address] GENOMIC MEDICINE [address] [address] Protein, misc fluid (02/28/2018 8:35 AM BARREL RACER) Fluid type Pericardial [facility] Protein, fluid 4.3 g/dL [facility] Comment: HOSPITAL Analysis performed on Mickey 8000 analyzer. This is not an approved methodology for this specimen type;accuracy and clinical significance uncertain. Specimen Fluid Narrative Performed At Pericardial fluid [facility] DEPARTMENT OF PATHOLOGY AND GENOMIC MEDICINE Performing Organization Address City/State/Zipcode Phone Number [facility] DEPARTMENT OF PATHOLOGY AND [address] [place] [address] GENOMIC MEDICINE [address] [address] LDH, misc fluid (02/28/2018 8:35 AM [facility]REL [facility]ER) Fluid type Pericardial [facility] LDH, fluid 348 U/L [facility] Comment: HOSPITAL Analysis performed on Mickey 8000 analyzer. This is not an approved methodology for this specimen type;accuracy and clinical significance uncertain. Specimen Fluid Narrative Performed At Pericardial fluid [facility] DEPARTMENT OF PATHOLOGY AND GENOMIC MEDICINE Performing Organization Address City/State/Zipcode Phone Number [facility] DEPARTMENT OF PATHOLOGY AND [address] [place] [phone] [place] [address] Glucose level, misc fluid (02/28/2018 8:35 AM [facility]REL RACER) Fluid type Pericardial [facility] Glucose, fluid 126 mg/dL [facility] Comment: HOSPITAL Analysis performed on Mickey 8000 analyzer. This is not an approved methodology for this specimen type;accuracy and clinical significance uncertain. Specimen Fluid Narrative Performed At Pericardial fluid [facility] DEPARTMENT OF PATHOLOGY AND GENOMIC MEDICINE Performing Organization Address City/State/Zipcode Phone Number [facility] DEPARTMENT OF PATHOLOGY AND [address] [place] [phone] [place] [address] Cytology (non-gynecological) request (02/28/2018 6:32 AM BARREL RACER) Pathologist [facility] DEPARTMENT OF PATHOLOGY AND GENOMIC MEDICINE Cytology See link below [facility] DEPARTMENT OF (non-gynecological) for PDF Lab PATHOLOGY AND report Report GENOMIC MEDICINE Result status This is Final [facility] DEPARTMENT OF Report for PATHOLOGY AND [id number] GENOMIC MEDICINE Specimen Performing Organization Address [facility] [place] [facility] Phone Number [facility] DEPARTMENT OF PATHOLOGY AND [address] [place] [phone] [place] [address] Partial thromboplastin time, activated (02/28/2018 3:50 AM [facility]ER) Pathologist [facility] PTT 35.1 23.0 - 36.0 [facility] Comment: [facility] PTT therapeutic range for unfractionated heparin is 61.0-112.0 seconds which corresponds to Anti-Xa 0.3-0.7 U/ml. Specimen Blood Performing Organization Address City/State/Zipcode Phone Number [facility] DEPARTMENT OF PATHOLOGY AND [address] [place] [phone] [address] Hepatitis B surface antigen (02/26/2018 2:00 PM [facility]REL RACER) Hepatitis B surface Non-reactive Non-reactive [facility] Specimen Blood Performing Organization Address City/State/Zipcode Phone Number [facility] DEPARTMENT OF PATHOLOGY AND [address] [place] [address] Hemoglobin A1c (02/26/2018 10:20 AM BARREL RACER) Hemoglobin A1C 5.5 4.0 - 5.6 % [facility] Comment: HOSPITAL HbA1c cutoffs for diagnosing diabetes: 4.0% - 5.6%=normal 5.7% - 6.4%=increased risk for diabetes (prediabetes) >=6.5%=diabetes Goals for glycemic control (ADA 2016) < 7.0%Target for non adults with diabetes. More or less stringent targets may be appropriate for individual patients. <7.5% Target for Children and adolescents with type 1 diabetes. Specimen Blood Performing Organization Address City/State/Zipcode Phone Number [facility] DEPARTMENT OF PATHOLOGY AND [address] [place] [address] Echocardiogram complete w contrast and 3D if needed (02/26/2018 8:17 AM BARREL RACER) Specimen Narrative Performed At [facility] Echocardiography Report [address] [place] [address] [address] [address] Pat.Name:YEYO COLLINS.ID:[id number] .Date: 02/26/2018 Refer.MD:HERMAN FRAGA MD Exam Time: 7:27:00 AMStudy Type:Routine Echo Height:63inWeight: 151lb BSA: 1.72 m2 DOBAge:1935,82Y Sex: FEMALEBP:141/71 HR:87 bpm Sonogrphr: Laya Coffman RDCS, RVT Pat. Stat.:Inpatient Room:[address] Study Status:Final Echo Event ID:[id number] Order ID:[id number] Reason for Study:Pre-op clearance History / Clinical:Congestive [...] RAPof 10 mmHg. MEASUREMENTS: 2D Parasternal Long [place] LVOT 1.9 cmLA Ds3.9 cm LVIDd2.9 cmIndex1.7 cm/m Ao Rtd 3.1 cm Index1.8 cm/m LVIDs1.9 cmLV Titc558.4 g(87-129) LV%fs 35.7 % LVM Ytzin327.1 g/m2 IVSd 1.6 cmRWT1.3 LVPWd1.9 cm LA Sng Plane LA Area 25.8 cm2(8.8-23.4) LA Vol84.5 ml Index49.1 ml/m LA LngAx 6.2 cm Aorta Ao Asc 3.7 cm (2.1-3.4) DOPPLER AV For Flow/ZHENG AV pkVel 227 cm/s (100-170) AV AC/ET 0.3 AV mnVel 148 cm/Marilyn TVI41.9 cm AV pkPG 20.6 mmHgAVpkAcRt 4164.3 cm/s2 AV Mean G 10.6 mmHgAV TkHd972.8 cm/s2 AV AC 83 msec (83-118) AV Area1.4 cm2(3-5) AV ET283 msec LVOT For Flow LVOT Area2.8 cm2 LVOT SV 60.5 ml BCRIrwUkx937.7 cm/sHR77.1 bpm LVOTpkPG 4.1 mmHgLVOT CO4.7 l/min LVOTmnPG 2.4 mmHgLVOT CI2.7 l/m/m2 LVOT TVI21.3 cm MV For Flow/Valve Assess MV Dec T 859 msecMV Mean G3.9 mmHg MV pkVel 172.7 cm/sMV TVI33.2 cm MV pkPG 11.9 mmHg Signed 02/26/2018 02:41 PM Marilee King M.D. Procedure Note Interface, Radiology Results In - 02/26/2018 2:41 PM [facility] Echocardiography Report [id number] [place] [address] Pat.Name: YEYO COLLINS Pat.ID: [id number] .Date: 02/26/2018 Refer.: HERMAN FRAGA MD Exam Time: 7:27:00 AM Study Type:Routine Echo Height: 63in Weight: 151lb BSA: 1.72 m2 Age: 3 1935,82Y Sex: FEMALE BP: 141/71 HR: 87 bpm Sonogrphr: Layagaudencio Coffman RDCS, RVT Pat. Stat.:Inpatient Room: [address] Study Status:Final Echo Event ID:[id number] Order ID: [id number] Reason for Study:Pre-op clearance History / Clinical:Congestive [...] of 10 mmHg. MEASUREMENTS: 2D Parasternal Long [place] LVOT 1.9 cm LA Ds 3.9 cm [...] PM Marilee King M.D. Performing Organization Address City/[facility]/Zipcode Phone Number [address] [place] [address] Comprehensive metabolic panel (02/26/2018 1:50 AM [facility]) Sodium 138 135 - 148 [facility] mEq/L [facility] Potassium 3.5 3.5 - 5.0 [facility] mEq/L [facility] Chloride 100 98 - 112 mEq/L [facility] CO2 26 24 - 31 mEq/L [facility] Anion gap 12@ANIO 7 - 15 mEq/L [facility] BUN 12 8 - 23 mg/dL [facility] Creatinine 3.07 (H) 0.50 - 0.90 [facility] mg/dL [facility] Glucose 110 (H) 65 - 99 mg/dL [facility] Calcium 9.5 8.8 - 10.2 [facility] mg/dL [facility] Protein 6.6 6.3 - 8.3 g/dL [facility] Comment: [facility] [place] 4.6-7.0 g/dL 1 week 4.4-7.6 g/dL 7 months-1year5.1-7.3 g/dL 1-2 years5.6-7.5 g/dL >3 years6.0-8.0 g/dL 18-150 6.3-8.3 g/dL Albumin 2.7 (L) 3.5 - 5.0 g/dL [facility] A/G ratio 0.7 0.7 - 3.8 [facility] Alkaline phosphatase 64 35 - 104 U/L [facility] AST 20 10 - 35 U/L [facility] ALT 8 5 - 50 U/L [facility] Total bilirubin 0.4 0.0 - 1.2 [facility] mg/dL [facility] Specimen Plasma specimen Performing Organization Address City/[facility]/Zipcode Phone Number [facility] DEPARTMENT OF PATHOLOGY AND [address] [place] [address] GENOMIC MEDICINE [facility] [address] [place] [address] after 08/14/2017 Insurance Payer Benefit Plan / Subscriber ID Effective Dates Phone Address Type Group MEDICARE MEDICARE PART A xxxxxxxxxx 2001-Present [place], [place] Medicare AND B MEDICAID MEDICAID xxxxxxxxx 2018-Present Medicaid Advance Directives Patient has advance care planning documents on file. For more information, please contact:Joseluis Gentile[address] [place] [address]
--- OUTSIDE RECORDS SUMMARY | 2018-08-15 09:01 | XMS REPORT | Clinical Summary ---
:1935 Author Organization [facility] Address [address] [place] [address] Care Team Providers Name Role Phone Anastacio [...] tablet FA-vit Take by mouth. 0 Active Bcomp&E-ptayypxn-e inc 3-70-15 mg-mcg-mg Tab citalopram Take 20 [...] ESRD (end stage renal disease) on dialysis ([facility]) Jerman Perera MD 03/23/2018 Surgery Marley Lambert & EVELIN Verdugo MD 03/23/2018 Travel after 08/14/2017 Social History Tobacco Use Types Packs/Day Years [...] Taken Blood Pressure 167/72 03/29/2018 11:31 AM OVERAGE SHORTAGE AND DAMAGE CLERK Pulse 65 03/29/2018 11:31 AM [employer]AGE SH[employer]AGE AND DAMAGE CLERK Temperature 36.8 C (98.3 F) 03/29/2018 11:31 AM OVERAGE SH[employer]AGE AND DAMAGE CLERK Respiratory Rate 18 03/29/2018 11:31 AM OVERAGE SH[employer]AGE AND DAMAGE CLERK Oxygen Saturation 100% 03/29/2018 11:31 AM OVERAGE SHORTAGE AND DAMAGE CLERK Inhaled Oxygen Concentration 21% 03/25/2018 10:36 PM OVERAGE SH[employer]AGE AND DAMAGE CLERK Weight 59.4 kg (130 lb 15.3 oz) 03/26/2018 9:55 AM OVERAGE SHORTAGE AND DAMAGE CLERK Height 162 cm (5' 3.78") 03/23/2018 5:16 PM [employer]AGE SH[employer]AGE AND DAMAGE CLERK Body Mass Index 22.63 03/26/2018 9:55 AM OVERAGE SH[employer]AGE AND DAMAGE CLERK Plan of Treatment Not on file Procedures Procedure Name Priority Date/Time Associated Diagnosis Comments RHYTHM STRIP - SCAN 06/27/2018 11:51 AM CDT VASCULAR DIAGRAM 05/16/2018 4:42 PM -SCAN [employer]AGE [employer]AGE AND DAMAGE CLERK REPORT OF PROCEDURE 04/18/2018 10:30 AM - ENDOSCOPY SCAN [employer]AGE AND DAMAGE CLERK CARDIAC CATH REPORT 04/18/2018 10:30 AM - SCAN [employer]AGE [employer]AGE AND DAMAGE CLERK RHYTHM STRIP - SCAN 04/18/2018 10:30 AM [employer]AGE SH[employer]AGE AND DAMAGE CLERK VASCULAR DIAGRAM 04/18/2018 10:30 AM -SCAN [employer]AGE AND DAMAGE CLERK POCT-GLUCOSE METER Routine 03/29/2018 12:48 PM Results for this [employer]AGE [employer]AGE AND DAMAGE CLERK procedure are in the results section. POCT-GLUCOSE METER Routine 03/29/2018 7:48 AM Results for this [employer]AGE SH[employer]AGE AND DAMAGE CLERK procedure are in the results section. ECG 12-LEAD Routine 03/29/2018 7:20 AM OVERAGE SHORTAGE AND DAMAGE CLERK Procedure Note - Interface, External Ris In - 03/29/2018 5:44 PM [employer]AGE SH[employer]AGE AND DAMAGE CLERK Ventricular Rate 65 BPM Atrial Rate 65 BPM P-R Interval 222 ms QRS Duration 78 ms Q-T Interval 430 ms QTC Calculation(Bazett) 447 ms P Townley 95 degrees R Townley -24 degrees T Townley 144 degrees Sinus rhythm with 1st degree A-V block Inferior infarct (cited on or before 24-MAR-2018) Anterior infarct (cited on or before 24-MAR-2018) ST & T wave abnormality, consider lateral ischemia Abnormal ECG When compared with ECG of 29-MAR-2018 07:19, No significant change was found ECG 12-LEAD STAT 03/29/2018 7:20 AM [employer]AGE AND DAMAGE CLERK ECG 12-LEAD Routine 03/29/2018 7:19 AM OVERAGE SH[employer]AGE AND DAMAGE CLERK Procedure Note - Interface, External Ris In - 03/29/2018 5:44 PM [employer]AGE SH[employer]AGE AND DAMAGE CLERK Ventricular Rate 65 BPM Atrial Rate 65 BPM P-R Interval 220 ms QRS Duration 84 ms Q-T Interval 428 ms QTC Calculation(Bazett) 445 ms P Townley 85 degrees R Townley -20 degrees T Townley 141 degrees Sinus rhythm with 1st degree A-V block Inferior infarct (cited on or before 24-MAR-2018) Anterior infarct (cited on or before 24-MAR-2018) T wave abnormality, consider lateral ischemia ACUTE AR / STEMI Consider right ventricular involvement in acute inferior infarct Abnormal ECG When compared with ECG of 28-MAR-2018 06:45, No significant change was found ECG 12-LEAD Routine 03/29/2018 7:19 AM [employer]AGE SH[employer]AGE AND DAMAGE CLERK MAGNESIUM Routine 03/29/2018 7:10 AM [employer]AGE SHORTAGE AND DAMAGE CLERK BASIC METABOLIC PANEL (7) Routine 03/29/2018 7:10 AM OVERAGE SHORTAGE AND DAMAGE CLERK CBC (HEMOGRAM ONLY) Routine 03/29/2018 7:10 AM OVERAGE SHORTAGE AND DAMAGE CLERK POCT-GLUCOSE METER Routine 03/28/2018 10:48 PM [employer]AGE SH[employer]AGE AND DAMAGE CLERK POCT-GLUCOSE METER Routine 03/28/2018 6:52 PM [employer] SH[employer]AGE AND DAMAGE CLERK POCT-GLUCOSE METER Routine 03/28/2018 3:32 PM [employer]AGE SH[employer]AGE AND DAMAGE CLERK POCT-GLUCOSE METER Routine 03/28/2018 2:03 PM OVERAGE SH[employer]AGE AND DAMAGE CLERK C. DIFFICILE GDH TOXIN Routine 03/28/2018 10:26 AM [employer]AGE SH[employer]AGE AND DAMAGE CLERK POCT-GLUCOSE METER Routine 03/28/2018 10:12 AM [employer]AGE SH[employer]AGE AND DAMAGE CLERK ECG 12-LEAD Routine 03/28/2018 6:45 AM OVERAGE SH[employer]AGE AND DAMAGE CLERK Procedure Note - Interface, External Ris In - 03/28/2018 10:27 AM [employer]AGE SH[employer]AGE AND DAMAGE CLERK Ventricular Rate 66 BPM Atrial Rate 66 BPM P-R Interval 224 ms QRS Duration 84 ms Q-T Interval 406 ms QTC Calculation(Bazett) 425 ms P Townley -4 degrees R Townley 3 degrees T Townley 140 degrees Sinus rhythm with 1st degree A-V block Inferior infarct (cited on or before 24-MAR-2018) Cannot rule out Anterior infarct , age undetermined ST & T wave abnormality, consider lateral ischemia Abnormal ECG When compared with ECG of 27-MAR-2018 06:56, No significant change was found ECG 12-LEAD Routine 03/28/2018 6:45 AM [employer]AGE [employer]AGE AND DAMAGE CLERK MAGNESIUM Routine 03/28/2018 4:46 AM [employer]AGE SH[employer]AGE AND DAMAGE CLERK BASIC METABOLIC PANEL (7) Routine 03/28/2018 4:46 AM OVERAGE SHORTAGE AND DAMAGE CLERK CBC (HEMOGRAM ONLY) Routine 03/28/2018 4:46 AM OVERAGE SH[employer]AGE AND DAMAGE CLERK POCT-GLUCOSE METER Routine 03/27/2018 9:10 PM [employer]AGE [employer]AGE AND DAMAGE CLERK POCT-GLUCOSE METER Routine 03/27/2018 5:37 PM [employer]AGE [employer]AGE AND DAMAGE CLERK POCT-GLUCOSE METER Routine 03/27/2018 1:19 PM [employer] SH[employer]AGE AND DAMAGE CLERK POCT-GLUCOSE METER Routine 03/27/2018 9:55 AM OVERAGE SHORTAGE AND DAMAGE CLERK IR AV SHUNT/FISTULAGRAM Routine 03/27/2018 9:30 AM [employer]AGE SH[employer]AGE AND DAMAGE CLERK ECG 12-LEAD Routine 03/27/2018 6:56 AM OVERAGE SH[employer]AGE AND DAMAGE CLERK Procedure Note - Interface, External Ris In - 03/27/2018 7:04 AM [employer]AGE [employer]AGE AND DAMAGE CLERK Ventricular Rate 64 BPM Atrial Rate 64 BPM P-R Interval 230 ms QRS Duration 82 ms Q-T Interval 430 ms QTC Calculation(Bazett) 443 ms P Townley 95 degrees R Townley -18 degrees T Townley 137 degrees Sinus rhythm with 1st degree A-V block Inferior infarct (cited on or before 24-MAR-2018) ST & T wave abnormality, consider lateral ischemia Abnormal ECG When compared with ECG of 25-MAR-2018 10:48, No significant change was found ECG 12-LEAD Routine 03/27/2018 6:56 AM OVERAGE SH[employer]AGE AND DAMAGE CLERK MAGNESIUM Routine 03/27/2018 5:50 AM [employer]AGE SH[employer]AGE AND DAMAGE CLERK BASIC METABOLIC PANEL (7) Routine 03/27/2018 5:50 AM OVERAGE SH[employer]AGE AND DAMAGE CLERK CBC (HEMOGRAM ONLY) Routine 03/27/2018 5:50 AM OVERAGE SH[employer]AGE AND DAMAGE CLERK POCT-GLUCOSE METER Routine 03/26/2018 10:12 PM [employer]AGE [employer]AGE AND DAMAGE CLERK POCT-GLUCOSE METER Routine 03/26/2018 5:43 PM [employer]AGE SH[employer]AGE AND DAMAGE CLERK PHOSPHORUS Routine 03/26/2018 2:55 PM [employer]AGE [employer]AGE AND DAMAGE CLERK POCT-GLUCOSE METER Routine 03/26/2018 2:53 PM [employer]AGE SH[employer]AGE AND DAMAGE CLERK HEMODIALYSIS INPATIENT Routine 03/26/2018 2:00 PM [employer]AGE [employer]AGE AND DAMAGE CLERK HEPATITIS B SURFACE ANTIGEN Routine 03/26/2018 9:58 AM [employer]AGE SH[employer]AGE AND DAMAGE CLERK POCT-GLUCOSE METER Routine 03/26/2018 9:03 AM OVERAGE SH[employer]AGE AND DAMAGE CLERK MAGNESIUM Routine 03/26/2018 4:36 AM OVERAGE SH[employer]AGE AND DAMAGE CLERK BASIC METABOLIC PANEL (7) Routine 03/26/2018 4:36 AM OVERAGE SHORTAGE AND DAMAGE CLERK CBC (HEMOGRAM ONLY) Routine 03/26/2018 4:36 AM OVERAGE SHORTAGE AND DAMAGE CLERK PROTHROMBIN TIME/INR Routine 03/26/2018 4:36 AM OVERAGE SHORTAGE AND DAMAGE CLERK APTT Routine 03/26/2018 1:03 AM OVERAGE SH[employer]AGE AND DAMAGE CLERK POCT-GLUCOSE METER Routine 03/25/2018 8:48 PM OVERAGE SH[employer]AGE AND DAMAGE CLERK APTT Routine 03/25/2018 6:11 PM [employer]AGE SH[employer]AGE AND DAMAGE CLERK POCT-GLUCOSE METER Routine 03/25/2018 5:18 PM [employer]AGE SH[employer]AGE AND DAMAGE CLERK POCT-GLUCOSE METER Routine 03/25/2018 12:04 PM OVERAGE SH[employer]AGE AND DAMAGE CLERK APTT Routine 03/25/2018 11:42 AM OVERAGE SH[employer]AGE AND DAMAGE CLERK ECG 12-LEAD Routine 03/25/2018 10:48 AM OVERAGE SHORTAGE AND DAMAGE CLERK Procedure Note - Interface, External Ris In - 03/25/2018 11:00 AM OVERAGE SH[employer]AGE AND DAMAGE CLERK Ventricular Rate 62 BPM Atrial Rate 62 BPM P-R Interval 224 ms QRS Duration 82 ms Q-T Interval 428 ms QTC Calculation(Bazett) 434 ms P Townley 93 degrees R Townley -5 degrees T Townley 134 degrees Sinus rhythm with 1st degree A-V block Inferior infarct , possibly acute T wave abnormality, consider lateral ischemia ACUTE AR / STEMI Consider right ventricular involvement in acute inferior infarct Abnormal ECG ECG 12-LEAD STAT 03/25/2018 10:48 AM OVERAGE SHORTAGE AND DAMAGE CLERK ECHOCARDIOGRAM REPORT - SCAN 03/25/2018 9:51 AM OVERAGE SHORTAGE AND DAMAGE CLERK POCT-GLUCOSE METER Routine 03/25/2018 8:02 AM OVERAGE SHORTAGE AND DAMAGE CLERK APTT Routine 03/25/2018 4:20 AM OVERAGE SHORTAGE AND DAMAGE CLERK IRON, TIBC, % SAT. (WITHOUT Routine 03/25/2018 4:20 AM OVERAGE SHORTAGE AND DAMAGE CLERK Results for this FERRITIN) procedure are in the results section. MAGNESIUM Routine 03/25/2018 4:20 AM OVERAGE SHORTAGE AND DAMAGE CLERK BASIC METABOLIC PANEL (7) Routine 03/25/2018 4:20 AM OVERAGE SH[employer]AGE AND DAMAGE CLERK CBC (HEMOGRAM ONLY) Routine 03/25/2018 4:20 AM OVERAGE SHORTAGE AND DAMAGE CLERK PROTHROMBIN TIME/INR Routine 03/25/2018 4:20 AM OVERAGE SHORTAGE AND DAMAGE CLERK APTT Routine 03/24/2018 10:35 PM OVERAGE SH[employer]AGE AND DAMAGE CLERK POCT-GLUCOSE METER Routine 03/24/2018 9:32 PM [employer]AGE SH[employer]AGE AND DAMAGE CLERK POCT-GLUCOSE METER Routine 03/24/2018 5:41 PM OVERAGE SHORTAGE AND DAMAGE CLERK 2D ECHO W/ DOPPLER Routine 03/24/2018 5:33 PM [employer]AGE SH[employer]AGE AND DAMAGE CLERK Results for this (CW/PW/COLOR) procedure are in the results section. APTT Routine 03/24/2018 12:47 PM OVERAGE SH[employer]AGE AND DAMAGE CLERK POCT-GLUCOSE METER Routine 03/24/2018 12:44 PM OVERAGE SH[employer]AGE AND DAMAGE CLERK ECG 12-LEAD Routine 03/24/2018 8:54 AM OVERAGE SHORTAGE AND DAMAGE CLERK Procedure Note - Interface, External Ris In - 03/24/2018 8:57 AM OVERAGE SH[employer]AGE AND DAMAGE CLERK Ventricular Rate 69 BPM Atrial Rate 69 BPM P-R Interval 238 ms QRS Duration 76 ms Q-T Interval 402 ms QTC Calculation(Bazett) 430 ms P Townley -11 degrees R Townley -3 degrees T Townley 134 degrees Sinus rhythm with 1st degree A-V block Inferior infarct , age undetermined Possible Anterolateral infarct , age undetermined Abnormal ECG ECG 12-LEAD Routine 03/24/2018 8:54 AM Results for this [employer]AGE AND DAMAGE CLERK procedure are in the results section. POCT-GLUCOSE METER Routine 03/24/2018 7:31 AM Results for this [employer]AGE AND DAMAGE CLERK procedure are in the results section. CBC W/PLT COUNT & AUTO Routine 03/24/2018 5:11 AM Results for this DIFFERENTIAL [employer]AGE AND DAMAGE CLERK procedure are in the results section. APTT Routine 03/24/2018 5:11 AM Results for this [employer]AGE [employer]AGE AND DAMAGE CLERK procedure are in the results section. PROTHROMBIN TIME/INR Routine 03/24/2018 5:11 AM Results for this [employer]AGE AND DAMAGE CLERK procedure are in the results section. CBC W/PLT COUNT & AUTO Routine 03/24/2018 5:11 AM Results for this DIFFERENTIAL [employer]AGE AND DAMAGE CLERK procedure are in the results section. PHOSPHORUS Routine 03/24/2018 5:11 AM Results for this [employer]AGE AND DAMAGE CLERK procedure are in the results section. MAGNESIUM Routine 03/24/2018 5:11 AM Results for this [employer]AGE AND DAMAGE CLERK procedure are in the results section. COMPREHENSIVE Routine 03/24/2018 5:11 AM Results for this METABOLIC PANEL [employer]AGE AND DAMAGE CLERK procedure are in the results section. CBC (HEMOGRAM ONLY) Routine 03/24/2018 5:11 AM Results for this [employer]AGE [employer]AGE AND DAMAGE CLERK procedure are in the results section. POCT-GLUCOSE METER Routine 03/23/2018 10:37 PM Results for this [employer]AGE [employer]AGE AND DAMAGE CLERK procedure are in the results section. APTT Routine 03/23/2018 8:43 PM Results for this [employer]AGE AND DAMAGE CLERK procedure are in the results section. PLATELET COUNT Routine 03/23/2018 8:43 PM Results for this [employer]AGE AND DAMAGE CLERK procedure are in the results section. LIPID PANEL Routine 03/23/2018 8:43 PM Results for this [employer]AGE AND DAMAGE CLERK procedure are in the results section. B-TYPE NATRIURETIC Routine 03/23/2018 8:43 PM Results for this FACTOR (BNP) [employer] DAMAGE CLERK procedure are in the results section. TROPONIN I Routine 03/23/2018 8:43 PM Results for this [employer]AGE AND DAMAGE CLERK procedure are in the results section. L CATH & PCI 03/23/2018 5:[address] elevation [employer]AGE AND DAMAGE CLERK myocardial infarction (STEMI), unspecified artery (HCC) after 08/14/2017 Results RHYTHM STRIP - SCAN (06/27/2018 11:51 AM CDT)Only the most recent of2 resultswithin the time period is included. Narrative Performed At VASCULAR DIAGRAM -SCAN (05/16/2018 4:42 PM [employer]AGE [employer]AGE AND DAMAGE CLERK)Only the most recent of2 resultswithin the time period is included. Narrative Performed At EKG-SCANNED (04/18/2018 10:30 AM [employer]AGE SH[employer]AGE AND DAMAGE CLERK) Narrative Performed At CARDIAC CATH REPORT - SCAN (04/18/2018 10:30 AM [employer]AGE SH[employer]AGE AND DAMAGE CLERK) Narrative Performed At POC-Glucose meter (03/29/2018 12:48 PM [employer]AGE SH[employer]AGE AND DAMAGE CLERK)Only the most recent of24 resultswithin the time period is included. POC-Glucose Meter 148 (H)Comment: TESTED AT 70 - 110 mg/dL [facility] [address] [facility] [address] Specimen Blood Performing Organization Address City/State/Zipcode Phone Number [facility] [address] [place] [address] CENTER ECG 12 lead (03/29/2018 7:20 AM OVERAGE SH[employer]AGE AND DAMAGE CLERK)Only the most recent of6 resultswithin the time period is included. Specimen Narrative Performed At Ventricular Rate 65 BPM GE MUSE Atrial Rate 65 BPM P-R Interval 222 ms QRS Duration 78 ms Q-T Interval 430 ms QTC Calculation(Bazett) 447 ms P Townley 95 degrees R Townley -24 degrees T Townley 144 degrees Sinus rhythm with 1st degree [...] External Ris In - 03/30/2018 11:47 AM [employer]AGE [employer]AGE AND DAMAGE CLERK Ventricular Rate 65 BPM Atrial Rate 65 BPM P-R Interval 222 ms QRS Duration 78 ms Q-T Interval 430 ms QTC Calculation(Bazett) 447 ms P Townley 95 degrees R Townley -24 degrees T Townley 144 degrees Sinus rhythm with 1st degree [...] MUSE CBC (Hemogram only) (03/29/2018 7:10 AM OVERAGE SH[employer]AGE AND DAMAGE CLERK)Only the most recent of6 resultswithin the time period is included. WBC 11.9 (H) 3.5 - 10.5 K/L [facility] RBC 3.64 (L) 3.93 - 5.22 M/L [facility] Hemoglobin 10.3 (L) 11.2 - 15.7 GM/DL [facility] Hematocrit 32.7 (L) 34.1 - 44.9 % [facility] MCV 89.8 79.4 - 94.8 fL [facility] MCH 28.3 25.6 - 32.2 pg [facility] MCHC 31.5 (L) 32.2 - 35.5 GM/DL [facility] RDW 17.7 (H) 11.7 - 14.4 % [facility] Platelets 359 150 - 450 K/CU MM [facility] MPV 10.1 9.4 - 12.3 fL [facility] nRBC 0 0 - 0 /100 WBC [facility] Specimen Blood Performing Organization Address City/[facility]/Zipcode Phone Number [address] [address] [place] Magnesium (03/29/2018 7:10 AM [employer]AGE SH[employer]AGE AND DAMAGE CLERK)Only the most recent of6 resultswithin the time period is included. Magnesium 1.8 1.6 - 2.6 mg/dL [facility] Specimen Blood Narrative Performed At Please draw today if not done already. [facility] Performing Organization Address City/[facility]/Zipcode Phone Number [address] [address] [place] Basic metabolic panel (03/29/2018 7:10 AM OVERAGE SH[employer]AGE AND DAMAGE CLERK)Only the most recent of5 resultswithin the time period is included. Sodium 135 (L) 136 - 145 meq/L [facility] Potassium 4.0 3.5 - 5.1 meq/L [facility] Chloride 103 98 - 107 meq/L [facility] CO2 24 22 - 29 meq/L [facility] BUN 23 (H) 7 - 21 mg/dL [facility] Creatinine 2.91 (H) 0.57 - 1.25 mg/dL [facility] Glucose 108 (H) 70 - 105 mg/dL [facility] Calcium 9.1 8.4 - 10.2 mg/dL [facility] EGFR 16Comment: ESTIMATED GFR IS mL/min/1.73 sq m [facility] NOT ACCURATE [facility] CLEARANCE IN PREDICTING GLOMERULAR FILTRATION RATE. ESTIMATED GFR IS NOT APPLICABLE FOR DIALYSIS PATIENTS. Specimen Blood Narrative Performed At Please draw today if not done already. [facility] Performing Organization Address City/State/Zipcode Phone Number [facility] [address] [place], [place] [phone] [place] Clostridium difficile [facility] Toxin (03/28/2018 10:26 AM OVERAGE SH[employer]AGE AND DAMAGE CLERK) C. Difficle Toxin Negative Negative [facility] C. Difficile [facility] Antigen NegativeComment: No Negative [facility] indication of Clostridium [facility] difficile infection and no colonization. Discontinue enteric isolation and therapy. Specimen Stool Narrative Performed At Testing performed by [employer] [facility] Assay.For GDH, published sensitivity of the assay is 98.7% compared to cytotoxicity testing.For Toxin AB, published sensitivity is 87.8% and specificity 99.4% compared to cytotoxicity testing. Verification of kit performance was done by the [facility] Microbiology Lab prior to clinical use. Performing Organization Address City/State/Zipcode Phone Number [facility] [address] [place] [address] [place] IR AV Shunt/Fistulagram (03/27/2018 9:30 AM [employer]AGE SH[employer]AGE AND DAMAGE CLERK) Specimen Narrative Performed At FINAL REPORT [facility] [...] MD Report Verified Date/Time:03/27/2018 16:13:07 Reading Location: [place] [address] Angio Body Reading Room Procedure Note Interface, External Ris In - 03/27/2018 4:15 PM [employer]AGE [employer]AGE AND DAMAGE CLERK FINAL REPORT Procedure: Attempted declotting of left [...] Report Verified Date/Time: 03/27/2018 16:13:07 Reading Location: [place] [address] Angio Body Reading Room Performing Organization Address City/[facility] Phosphorus (03/26/2018 2:55 PM [employer]AGE AND DAMAGE CLERK)Only the most recent of2 resultswithin the time period is included. Phosphorus 2.0 (L) 2.3 - 4.7 mg/dL [facility] Specimen Blood Performing Organization Address City/[facility]/Zipcode Phone Number [address] [address] CENTER HEMODIALYSIS INPATIENT (03/26/2018 2:00 PM [employer]AGE AND DAMAGE CLERK) Narrative Performed At Zina Strange RN 03/26/20187:25 [...] Hepatitis B surface antigen (03/26/2018 9:58 AM [employer]AGE [employer]AGE AND DAMAGE CLERK) hepatitis B Surface Ag NON-REACTIVE Nonreactive [facility] Specimen Blood Performing Organization Address City/[facility] Phone Number [address] [address] [phone] [place] Prothrombin time/INR (03/26/2018 4:36 AM [employer]AGE SH[employer]AGE AND DAMAGE CLERK)Only the most recent of3 resultswithin the time period is included. Protime 14.8 (H) 11.7 - 14.7 seconds [facility] INR 1.2 <=5.9 [facility] Specimen Blood Narrative Performed At RECOMMENDED COUMADIN/WARFARIN INR THERAPY [facility] RANGES STANDARD DOSE: 2.0 - 3.0 Includes: PROPHYLAXIS for venous thrombosis, systemic embolization; TREATMENT for venous thrombosis and/or pulmonary embolus. HIGH RISK: Target INR is 2.5-3.5 for patients with mechanical heart valves. Performing Organization Address [facility] Phone Number [address] [address] CENTER aPTT (03/26/2018 1:03 AM [employer]AGE SH[employer]AGE AND DAMAGE CLERK)Only the most recent of8 resultswithin the time period is included. PTT 60.2 (H) 22.5 - 36.0 seconds [facility] Specimen Blood Performing Organization Address City/[facility]/Zipcode Phone Number [facility] [address] [place], [place] [phone] [place] ECHOCARDIOGRAM REPORT - SCAN (03/25/2018 9:51 AM OVERAGE SH[employer]AGE AND DAMAGE CLERK) Narrative Performed At Iron, TIBC, % sat. (without ferritin) (03/25/2018 4:20 AM [employer]AGE SH[employer]AGE AND DAMAGE CLERK) Iron 29.0 (L) 40.0 - 160.0 ug/dL [facility] TIBC 123 (L) 250 - 450 ug/dL [facility] Iron % Saturation 24 20 - 55 % [facility] Specimen Blood Performing Organization Address City/[facility] Phone Number [facility] [address] [place], [place] [phone] [place] Transthoracic 2D echo w/ doppler (cw/pw/color) (03/24/2018 5:33 PM [employer]AGE AND DAMAGE CLERK) Ejection Fraction [facility] ECHO HEARTLAB radRounds Radiology NetworkON [facility] Specimen Narrative Performed At Transthoracic Echocardiography Report (TTE) [facility] ECHO HEARTLAB [place] [facility]istor[facility] CPA Demographics Patient Name Nikolay COLLINS of Study 03/24/2018 OPAL [id number] GenderFemale Visit Number [id number] Unknown [id number] Room Number 6214 Number Date of Birth1935Referring Physician Age82 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 Wzex-it-iwgzowts aortic stenosis. Estimated peak systolic PA pressure [...] right- and le ft- coronary cups(s). Mi ba-my-zozdsfjx aortic stenosis. 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 Ccoe-vi-kynvjvcn aortic stenosis. Estimated peak systolic PA pressure [...] involves the right- and left- coronary cups(s). Tbvd-bg-vblzoyie aortic stenosis. AoV area at rest by [...] Performing Organization Address City/State/Zipcode Phone Number [facility] [employer] [facility] CBC with platelet count + automated diff (03/24/2018 5:11 AM OVERAGE SH[employer]AGE AND DAMAGE CLERK) WBC 10.9 (H) 3.5 - 10.5 K/L [facility] RBC 3.53 (L) 3.93 - 5.22 M/L [facility] Hemoglobin 9.9 (L) 11.2 - 15.7 GM/DL [facility] Hematocrit 31.7 (L) 34.1 - 44.9 % [facility] MCV 89.8 79.4 - 94.8 fL [facility] MCH 28.0 25.6 - 32.2 pg [facility] MCHC 31.2 (L) 32.2 - 35.5 GM/DL [facility] RDW 17.8 (H) 11.7 - 14.4 % [facility] Platelets 365 150 - 450 K/CU MM [facility] MPV 10.4 9.4 - 12.3 fL [facility] nRBC 0 0 - 0 /100 WBC [facility] % Neutros 75 % [facility] % Lymphs 12 % [facility] % Monos 9 % [facility] % Eos 3 % [facility] % Baso 0 % [facility] # Neutros 8.15 (H) 1.56 - 6.13 K/L [facility] # Lymphs 1.32 1.18 - 3.74 K/L [facility] # Monos 0.94 (H) 0.24 - 0.36 K/L [facility] # Eos 0.32 0.04 - 0.36 K/L [facility] # Baso 0.04 0.01 - 0.08 K/L [facility] Immature Granulocytes-Relative 1 0 - 1 % [facility] Specimen Blood Performing Organization Address City/State/Zipcode Phone Number [facility] [address] [place] [address] CENTER Comprehensive metabolic panel (03/24/2018 5:11 AM OVERAGE SHORTAGE AND DAMAGE CLERK) Protein, Total 6.4 6.0 - 8.3 gm/dL [facility] [facility] Albumin 2.8 (L) 3.5 - 5.0 g/dL [facility] Alkaline Phosphatase 108 40 - 150 U/L [facility] Total Bilirubin 0.4 0.2 - 1.2 mg/dL [facility] Sodium 129 (L) 136 - 145 meq/L [facility] Potassium 3.3 (L) 3.5 - 5.1 meq/L [facility] Chloride 99 98 - 107 meq/L [facility] CO2 21 (L) 22 - 29 meq/L [facility] BUN 47 (H) 7 - 21 mg/dL [facility] Creatinine 3.80 (H) 0.57 - 1.25 mg/dL [facility] Glucose 103 70 - 105 mg/dL [facility] Calcium 9.6 8.4 - 10.2 mg/dL [facility] AST 46 (H) 5 - 34 U/L [facility] ALT 49 6 - 55 U/L [facility] EGFR Comment: INSUFFICIENT mL/min/1.73 sq m [facility] CLINICAL DATA TO [facility] CALCULATE ESTIMATED GFR. Specimen Blood Performing Organization Address City/State/Zipcode Phone Number [facility] [address] [place] [address] [phone] [place] Troponin I (03/23/2018 8:43 PM [employer]) Troponin I 1.89 (HH) 0.00 - 0.03 ng/mL [facility] Specimen Blood Narrative Performed At Troponin I (TnI) levels must be interpreted [facility] in the context of the [...] and persistent tachyarrhythmia. Fasting Performing Organization Address [facility] Phone Number [address] [address] [phone] [facility] Platelet count (03/23/2018 8:43 PM [employer]) Platelets 364 150 - 450 K/CU MM [facility] Specimen Blood Performing Organization Address [facility] Phone Number [address] [address] [facility] B-type Natriuretic Factor (BNP) (03/23/2018 8:43 PM [employer]) BNP 2,021 (H) 0 - 100 pg/mL [facility] Specimen Blood Performing Organization Address [facility] Phone Number [address] [address] [phone] [facility] Lipid panel (03/23/2018 8:43 PM [employer]) Triglycerides 132 mg/dL [facility] Cholesterol 103 mg/dL [facility] HDL 24 mg/dL [facility] LDL Calculated 53 mg/dL [facility] Specimen Blood Narrative Performed At Triglyceride Reference Range: [facility] Low Risk <150 [id number] High Risk 200-499 Very High Risk>=500 Cholesterol Reference Range: Low Risk <200 [id number] High Risk>240 HDL Cholesterol Reference Range: Low Risk >=60 High Risk <40 LDL Cholesterol Reference Range: Optimal<100 Near [id number] Very High >=190 Fasting Performing Organization Address City/State/Zipcode Phone Number [facility] [employer] [address] [place] [address] [phone] CENTER after 08/14/2017 Insurance Payer Benefit Plan / Group Subscriber ID Type Phone Address MEDICARE MEDICARE A B xxxxxxxxxxx Medicare Advance Directives For more information, please contact:[employer] Machine TalkerAnna Meraki[address] [place], [place] [phone] Code Status Date Activated Date Inactivated Comments Full Code 03/23/2018 8:26 PM This code status was determined by: Patient
--- OUTSIDE RECORDS SUMMARY | 2018-08-15 09:01 | XMS REPORT ---
:1935 Author Organization [facility] Address [facility] [place] [address] Care Team Providers Name Role Phone RENÉE [...] (BEAKER) (test 148 mg/dL 70-110 TESTED AT [facility] [address] [facility] tijn=1080) [facility] [address] BASIC METABOLIC [id number] 09:04:00 Test Item Value Reference Range Comments SODIUM (BEAKER) (test 135 meq/L 136-145 dyba=679) POTASSIUM (BEAKER) (test 4.0 meq/L 3.5-5.1 fpgr=158) CHLORIDE (BEAKER) (test 103 meq/L 98-107 zsdu=704) CO2 (BEAKER) (test 24 meq/L 22-29 lxdg=236) BLOOD UREA NITROGEN 23 mg/dL 7-21 (BEAKER) (test pluf=562) CREATININE (BEAKER) (test 2.91 mg/dL 0.57-1.25 sqnt=895) GLUCOSE RANDOM (BEAKER) 108 mg/dL 70-105 (test zdpc=694) CALCIUM (BEAKER) (test 9.1 mg/dL 8.4-10.2 ohyz=289) EGFR (BEAKER) (test 16 mL/min/1.73 sq m ESTIMATED GFR IS NOT kusc=5775) ACCURATE CREATININE CLEARANCE IN PREDICTING GLOMERULAR FILTRATION RATE. ESTIMATED GFR IS NOT APPLICABLE FOR DIALYSIS PATIENTS. Please draw today if not done already.POCT-GLUCOSE [id number] 08:48:00 Test Item Value Reference Range Comments POC-GLUCOSE METER (BEAKER) 127 mg/dL 70-110 TESTED AT [address] (test yjub=6156) [facility] [address] [id number] 08:14:00 Test Item Value Reference Range Comments MAGNESIUM (BEAKER) (test pfqa=214) 1.8 mg/dL 1.6-2.6 Please draw today if not done already.CBC (HEMOGRAM ONLY)2018-03-29 07:56:00 Test Item Value Reference Range Comments WHITE BLOOD CELL COUNT (BEAKER) (test etqw=811) 11.9 K/ L 3.5-10.5 RED BLOOD CELL COUNT (BEAKER) (test ndvk=071) 3.64 M/ L 3.93-5.22 HEMOGLOBIN (BEAKER) (test fedy=350) 10.3 GM/DL 11.2-15.7 HEMATOCRIT (BEAKER) (test joml=760) 32.7 % 34.1-44.9 MEAN CORPUSCULAR VOLUME (BEAKER) (test dtku=111) 89.8 fL 79.4-94.8 MEAN CORPUSCULAR HEMOGLOBIN (BEAKER) (test 28.3 pg 25.6-32.2 vuqd=118) MEAN CORPUSCULAR HEMOGLOBIN CONC (BEAKER) (test 31.5 GM/DL 32.2-35.5 mbri=889) RED CELL DISTRIBUTION WIDTH (BEAKER) (test 17.7 % 11.7-14.4 aqio=526) PLATELET COUNT (BEAKER) (test zgno=342) 359 K/CU MM 150-450 MEAN PLATELET VOLUME (BEAKER) (test kyiz=905) 10.1 fL 9.4-12.3 NUCLEATED RED BLOOD CELLS (BEAKER) (test 0 /100 WBC 0-0 hjxg=855) POCT-GLUCOSE [id number] 23:20:00 Test Item Value Reference Range Comments POC-GLUCOSE METER (BEAKER) 181 mg/dL 70-110 TESTED AT [address] (test jyqh=1260) [facility] [address] POCT-GLUCOSE [id number] 18:54:00 Test Item Value Reference Range Comments POC-GLUCOSE METER (BEAKER) 162 mg/dL 70-110 TESTED AT [address] (test gfqz=0179) [place] [id number] C. DIFFICILE GDH [id number] 16:18:00 Test Item Value Reference Range Comments CDT TOXIN (test Negative Negative kayq=[id number]) CDT GDH ANTIGEN (test Negative Negative No indication of Clostridium zbta=[id number]) difficile infection and no colonization. Discontinue enteric isolation and therapy. Testing performed by [employer] Rapid Cassette Assay. For GDH, published sensitivity of the assay is 98.7% compared to cytotoxicity testing. For Toxin AB, published sensitivity is 87.8% and specificity 99.4% compared to cytotoxicity testing.Verification of kit performance was done by the [facility] Microbiology Lab prior to clinical use.POCT-GLUCOSE [id number] 15:35:00 Test Item Value Reference Range Comments POC-GLUCOSE METER (BEAKER) 162 mg/dL 70-110 TESTED AT [address] (test yasy=0210) [place] [address] POCT-GLUCOSE [id number] 14:06:00 Test Item Value Reference Range Comments POC-GLUCOSE METER (BEAKER) 175 mg/dL 70-110 TESTED AT [address] (test oqea=5191) [place] [address] POCT-GLUCOSE [id number] 10:16:00 Test Item Value Reference Range Comments POC-GLUCOSE METER (BEAKER) 163 mg/dL 70-110 TESTED AT [address] (test pvvz=2357) [place] [id number] BASIC METABOLIC [id number] 06:00:00 Test Item Value Reference Range Comments SODIUM (BEAKER) (test 132 meq/L 136-145 tlzg=257) POTASSIUM (BEAKER) (test 4.1 meq/L 3.5-5.1 kkfi=883) CHLORIDE (BEAKER) (test 101 meq/L 98-107 ejfx=743) CO2 (BEAKER) (test 21 meq/L 22-29 adzh=454) BLOOD UREA NITROGEN 40 mg/dL 7-21 (BEAKER) (test dfbo=703) CREATININE (BEAKER) (test 4.19 mg/dL 0.57-1.25 pjis=796) GLUCOSE RANDOM (BEAKER) 122 mg/dL 70-105 (test vxen=234) CALCIUM (BEAKER) (test 9.3 mg/dL 8.4-10.2 cntj=161) EGFR (BEAKER) (test 10 mL/min/1.73 sq m ESTIMATED GFR IS NOT lrrk=4078) ACCURATE CREATININE CLEARANCE IN PREDICTING GLOMERULAR FILTRATION RATE. ESTIMATED GFR IS NOT APPLICABLE FOR DIALYSIS PATIENTS. Please draw today if not done already.[id number] 05:59:00 Test Item Value Reference Range Comments MAGNESIUM (BEAKER) (test nqkm=768) 1.8 mg/dL 1.6-2.6 Please draw today if not done already.CBC (HEMOGRAM ONLY)2018-03-28 05:43:00 Test Item Value Reference Range Comments WHITE BLOOD CELL COUNT (BEAKER) (test igqn=971) 11.3 K/ L 3.5-10.5 RED BLOOD CELL COUNT (BEAKER) (test njvi=459) 3.61 M/ L 3.93-5.22 HEMOGLOBIN (BEAKER) (test wulb=995) 10.1 GM/DL 11.2-15.7 HEMATOCRIT (BEAKER) (test dsbd=783) 33.2 % 34.1-44.9 MEAN CORPUSCULAR VOLUME (BEAKER) (test yoce=816) 92.0 fL 79.4-94.8 MEAN CORPUSCULAR HEMOGLOBIN (BEAKER) (test 28.0 pg 25.6-32.2 vqhp=728) MEAN CORPUSCULAR HEMOGLOBIN CONC (BEAKER) (test 30.4 GM/DL 32.2-35.5 lhxg=257) RED CELL DISTRIBUTION WIDTH (BEAKER) (test 18.2 % 11.7-14.4 mpiz=312) PLATELET COUNT (BEAKER) (test otat=050) 357 K/CU MM 150-450 MEAN PLATELET VOLUME (BEAKER) (test cppd=308) 9.7 fL 9.4-12.3 NUCLEATED RED BLOOD CELLS (BEAKER) (test 0 /100 WBC 0-0 hzas=756) POCT-GLUCOSE [id number] 22:08:00 Test Item Value Reference Range Comments POC-GLUCOSE METER (BEAKER) 154 mg/dL 70-110 TESTED AT [address] (test soou=9133) [facility] [address] POCT-GLUCOSE [id number] 17:45:00 Test Item Value Reference Range Comments POC-GLUCOSE METER (BEAKER) 215 mg/dL 70-110 TESTED AT [address] (test vslo=0193) [place] [address] ANG, AV-SHUNT, CATH INTRO WITH [id number] 16:13:00Reason for exam:-> LUE clotted hemodialysis vascular [...] MDReport Verified Date/Time: 03/27/2018 16:13:07 Reading Location: [place] [address] Angio Body Reading Room POCT-GLUCOSE [id number] 13:21:00 Test Item Value Reference Range Comments POC-GLUCOSE METER (BEAKER) 201 mg/dL 70-110 TESTED AT [address] (test nouy=5134) [place] [address] POCT-GLUCOSE [id number] 09:57:00 Test Item Value Reference Range Comments POC-GLUCOSE METER (BEAKER) 95 mg/dL 70-110 TESTED AT [address] (test ijcd=1045) [place] [address] BASIC METABOLIC [id number] 06:47:00 Test Item Value Reference Range Comments SODIUM (BEAKER) (test 132 meq/L 136-145 wxcf=513) POTASSIUM (BEAKER) (test 3.7 meq/L 3.5-5.1 wakd=493) CHLORIDE (BEAKER) (test 103 meq/L 98-107 hjxt=381) CO2 (BEAKER) (test 20 meq/L 22-29 rytg=834) BLOOD UREA NITROGEN 26 mg/dL 7-21 (BEAKER) (test ilck=258) CREATININE (BEAKER) (test 3.15 mg/dL 0.57-1.25 igaz=668) GLUCOSE RANDOM (BEAKER) 100 mg/dL 70-105 (test ycux=494) CALCIUM (BEAKER) (test 8.9 mg/dL 8.4-10.2 nyul=782) EGFR (BEAKER) (test mL/min/1.73 sq m INSUFFICIENT CLINICAL DATA xsxf=9040) TO CALCULATE ESTIMATED GFR. Please draw today if not done already.[id number] 06:38:00 Test Item Value Reference Range Comments MAGNESIUM (BEAKER) (test mkxl=274) 1.8 mg/dL 1.6-2.6 Please draw today if not done already.CBC (HEMOGRAM ONLY)2018-03-27 06:11:00 Test Item Value Reference Range Comments WHITE BLOOD CELL COUNT (BEAKER) (test zfvp=088) 10.8 K/ L 3.5-10.5 RED BLOOD CELL COUNT (BEAKER) (test mxtw=149) 3.55 M/ L 3.93-5.22 HEMOGLOBIN (BEAKER) (test qdlf=650) 9.9 GM/DL 11.2-15.7 HEMATOCRIT (BEAKER) (test npdk=702) 32.3 % 34.1-44.9 MEAN CORPUSCULAR VOLUME (BEAKER) (test vwlf=703) 91.0 fL 79.4-94.8 MEAN CORPUSCULAR HEMOGLOBIN (BEAKER) (test 27.9 pg 25.6-32.2 egpp=720) MEAN CORPUSCULAR HEMOGLOBIN CONC (BEAKER) (test 30.7 GM/DL 32.2-35.5 kmbv=183) RED CELL DISTRIBUTION WIDTH (BEAKER) (test 18.0 % 11.7-14.4 pshr=368) PLATELET COUNT (BEAKER) (test zcaz=430) 362 K/CU MM 150-450 MEAN PLATELET VOLUME (BEAKER) (test cskf=472) 10.0 fL 9.4-12.3 NUCLEATED RED BLOOD CELLS (BEAKER) (test 0 /100 WBC 0-0 lyiv=658) POCT-GLUCOSE [id number] 23:30:00 Test Item Value Reference Range Comments POC-GLUCOSE METER (BEAKER) 116 mg/dL 70-110 TESTED AT [address] (test hgvo=6489) [place] [address] POCT-GLUCOSE [id number] 17:47:00 Test Item Value Reference Range Comments POC-GLUCOSE METER (BEAKER) 146 mg/dL 70-110 TESTED AT [address] (test llie=9418) [place] [address] [id number] 15:23:00 Test Item Value Reference Range Comments PHOSPHORUS (BEAKER) (test nebo=070) 2.0 mg/dL 2.3-4.7 POCT-GLUCOSE [id number] 14:54:00 Test Item Value Reference Range Comments POC-GLUCOSE METER (BEAKER) 127 mg/dL 70-110 TESTED AT [address] (test wmzn=4861) [place] [address] HEPATITIS B SURFACE [id number] 10:46:00 Test Item Value Reference Range Comments HEPATITIS B SURFACE ANTIGEN (2) (BEAKER) (test Nonreactive Nonreactive wqwv=0526) POCT-GLUCOSE [id number] 09:05:00 Test Item Value Reference Range Comments POC-GLUCOSE METER (BEAKER) 145 mg/dL 70-110 TESTED AT [address] (test zdqz=9720) [place] [address] BASIC METABOLIC [id number] 06:36:00 Test Item Value Reference Range Comments SODIUM (BEAKER) (test 125 meq/L 136-145 pgts=879) POTASSIUM (BEAKER) (test 4.2 meq/L 3.5-5.1 gwdq=494) CHLORIDE (BEAKER) (test 93 meq/L 98-107 ejzd=714) CO2 (BEAKER) (test 19 meq/L 22-29 roja=721) BLOOD UREA NITROGEN 75 mg/dL 7-21 (BEAKER) (test utyk=938) CREATININE (BEAKER) (test 5.98 mg/dL 0.57-1.25 naxy=458) GLUCOSE RANDOM (BEAKER) 119 mg/dL 70-105 (test boup=192) CALCIUM (BEAKER) (test 9.2 mg/dL 8.4-10.2 mret=898) EGFR (BEAKER) (test mL/min/1.73 sq m INSUFFICIENT CLINICAL DATA wzzc=1999) TO CALCULATE ESTIMATED GFR. Please draw today if not done already.[id number] 06:25:00 Test Item Value Reference Range Comments MAGNESIUM (BEAKER) (test xebm=909) 1.9 mg/dL 1.6-2.6 Please draw today if not done already.PROTHROMBIN [id number] 05:41:00 Test Item Value Reference Range Comments PROTIME (BEAKER) (test sefp=588) 14.8 seconds 11.7-14.7 INR (BEAKER) (test bjbu=275) 1.2 <=5.9 RECOMMENDED COUMADIN/WARFARIN INR THERAPY RANGESSTANDARD DOSE: 2.0 - 3.0 Includes: PROPHYLAXIS forvenous thrombosis, systemic embolization; TREATMENT for venous thrombosis and/or pulmonary embolus.HIGH RISK: Target INR is 2.5-3.5 for patients with mechanical heart valves.CBC (HEMOGRAM ONLY)2018-03-26 05:36:00 Test Item Value Reference Range Comments WHITE BLOOD CELL COUNT (BEAKER) (test ckrb=753) 12.0 K/ L 3.5-10.5 RED BLOOD CELL COUNT (BEAKER) (test kerj=788) 3.53 M/ L 3.93-5.22 HEMOGLOBIN (BEAKER) (test jfar=069) 10.0 GM/DL 11.2-15.7 HEMATOCRIT (BEAKER) (test twir=035) 31.6 % 34.1-44.9 MEAN CORPUSCULAR VOLUME (BEAKER) (test pjro=620) 89.5 fL 79.4-94.8 MEAN CORPUSCULAR HEMOGLOBIN (BEAKER) (test 28.3 pg 25.6-32.2 cdxd=438) MEAN CORPUSCULAR HEMOGLOBIN CONC (BEAKER) (test 31.6 GM/DL 32.2-35.5 hjia=750) RED CELL DISTRIBUTION WIDTH (BEAKER) (test 17.7 % 11.7-14.4 zdww=889) PLATELET COUNT (BEAKER) (test dods=645) 401 K/CU MM 150-450 MEAN PLATELET VOLUME (BEAKER) (test rshf=053) 10.6 fL 9.4-12.3 NUCLEATED RED BLOOD CELLS (BEAKER) (test 0 /100 WBC 0-0 jlkc=433) [id number] 02:04:00 Test Item Value Reference Range Comments PARTIAL THROMBOPLASTIN TIME (BEAKER) (test 60.2 seconds 22.5-36.0 xylz=009) POCT-GLUCOSE [id number] 20:52:00 Test Item Value Reference Range Comments POC-GLUCOSE METER (BEAKER) 153 mg/dL 70-110 TESTED AT [address] (test bmuc=7906) [place] [address] [id number] 18:30:00 Test Item Value Reference Range Comments PARTIAL THROMBOPLASTIN TIME (BEAKER) (test 78.9 seconds 22.5-36.0 slvl=553) POCT-GLUCOSE [id number] 17:26:00 Test Item Value Reference Range Comments POC-GLUCOSE METER (BEAKER) 148 mg/dL 70-110 TESTED AT [address] (test lqic=4201) [place] [address] POCT-GLUCOSE [id number] 12:32:00 Test Item Value Reference Range Comments POC-GLUCOSE METER (BEAKER) 186 mg/dL 70-110 TESTED AT [address] (test kxur=7668) [place] [address] [id number] 12:22:00 Test Item Value Reference Range Comments PARTIAL THROMBOPLASTIN TIME (BEAKER) (test 98.1 seconds 22.5-36.0 hhcx=353) POCT-GLUCOSE [id number] 08:04:00 Test Item Value Reference Range Comments POC-GLUCOSE METER (BEAKER) 139 mg/dL 70-110 TESTED AT [address] (test zpvv=9251) [place] [address] IRON, TIBC, % SAT. (WITHOUT FERRITIN)2018-03-25 05:38:00 Test Item Value Reference Range Comments IRON (BEAKER) (test oiak=956) 29.0 ug/dL 40.0-160.0 TOTAL IRON BINDING CAPACITY (BEAKER) (test 123 ug/dL 250-450 krqq=127) IRON % SATURATION (2) (BEAKER) (test klyj=8002) 24 % 20-55 BASIC METABOLIC [id number] 05:29:00 Test Item Value Reference Range Comments SODIUM (BEAKER) (test 128 meq/L 136-145 bzcv=101) POTASSIUM (BEAKER) (test 4.1 meq/L 3.5-5.1 zcfn=966) CHLORIDE (BEAKER) (test 98 meq/L 98-107 gmlv=158) CO2 (BEAKER) (test 18 meq/L 22-29 lxnx=776) BLOOD UREA NITROGEN 57 mg/dL 7-21 (BEAKER) (test qchz=882) CREATININE (BEAKER) (test 4.80 mg/dL 0.57-1.25 ngdc=935) GLUCOSE RANDOM (BEAKER) 105 mg/dL 70-105 (test rntw=008) CALCIUM (BEAKER) (test 9.5 mg/dL 8.4-10.2 jnvk=275) EGFR (BEAKER) (test mL/min/1.73 sq m INSUFFICIENT CLINICAL DATA jukd=6549) TO CALCULATE ESTIMATED GFR. Please draw today if not done already.[id number] 05:15:00 Test Item Value Reference Range Comments MAGNESIUM (BEAKER) (test uojb=165) 1.8 mg/dL 1.6-2.6 Please draw today if not done already.[id number] 04:56:00 Test Item Value Reference Range Comments PARTIAL THROMBOPLASTIN TIME (BEAKER) (test 90.6 seconds 22.5-36.0 iivl=196) PROTHROMBIN [id number] 04:55:00 Test Item Value Reference Range Comments PROTIME (BEAKER) (test dmog=326) 15.0 seconds 11.7-14.7 INR (BEAKER) (test khto=687) 1.1 <=5.9 RECOMMENDED COUMADIN/WARFARIN INR THERAPY RANGESSTANDARD DOSE: 2.0 - 3.0 Includes: PROPHYLAXIS forvenous thrombosis, systemic embolization; TREATMENT for venous thrombosis and/or pulmonary embolus.HIGH RISK: Target INR is 2.5-3.5 for patients with mechanical heart valves.CBC (HEMOGRAM ONLY)2018-03-25 04:50:00 Test Item Value Reference Range Comments WHITE BLOOD CELL COUNT (BEAKER) (test knox=332) 10.2 K/ L 3.5-10.5 RED BLOOD CELL COUNT (BEAKER) (test ncoz=678) 3.76 M/ L 3.93-5.22 HEMOGLOBIN (BEAKER) (test dqcz=255) 10.6 GM/DL 11.2-15.7 HEMATOCRIT (BEAKER) (test qxcs=540) 33.9 % 34.1-44.9 MEAN CORPUSCULAR VOLUME (BEAKER) (test dcld=064) 90.2 fL 79.4-94.8 MEAN CORPUSCULAR HEMOGLOBIN (BEAKER) (test 28.2 pg 25.6-32.2 xfxo=935) MEAN CORPUSCULAR HEMOGLOBIN CONC (BEAKER) (test 31.3 GM/DL 32.2-35.5 phgz=049) RED CELL DISTRIBUTION WIDTH (BEAKER) (test 17.9 % 11.7-14.4 dazy=253) PLATELET COUNT (BEAKER) (test uuyx=737) 389 K/CU MM 150-450 MEAN PLATELET VOLUME (BEAKER) (test rhsx=679) 9.9 fL 9.4-12.3 NUCLEATED RED BLOOD CELLS (BEAKER) (test 0 /100 WBC 0-0 bfgt=938) [id number] 22:51:00 Test Item Value Reference Range Comments PARTIAL THROMBOPLASTIN TIME (BEAKER) (test 58.5 seconds 22.5-36.0 ipmn=933) POCT-GLUCOSE [id number] 21:34:00 Test Item Value Reference Range Comments POC-GLUCOSE METER (BEAKER) 191 mg/dL 70-110 TESTED AT [address] (test afhn=4965) [place] [address] POCT-GLUCOSE [id number] 17:43:00 Test Item Value Reference Range Comments POC-GLUCOSE METER (BEAKER) 171 mg/dL 70-110 TESTED AT [address] (test elme=4557) [place] [address] [id number] 13:32:00 Test Item Value Reference Range Comments PARTIAL THROMBOPLASTIN TIME (BEAKER) (test 63.7 seconds 22.5-36.0 fgpg=327) POCT-GLUCOSE [id number] 12:45:00 Test Item Value Reference Range Comments POC-GLUCOSE METER (BEAKER) 81 mg/dL 70-110 TESTED AT [address] (test dhay=3691) [place] [id number] POCT-GLUCOSE [id number] 07:44:00 Test Item Value Reference Range Comments POC-GLUCOSE METER (BEAKER) 128 mg/dL 70-110 TESTED AT [facility] [address] (test dxcy=1513) [place] [address] CBC W/PLT COUNT & AUTO [id number] 07:43:00 Test Item Value Reference Range Comments WHITE BLOOD CELL COUNT (BEAKER) (test bpch=485) 10.9 K/ L 3.5-10.5 RED BLOOD CELL COUNT (BEAKER) (test pnjt=063) 3.53 M/ L 3.93-5.22 HEMOGLOBIN (BEAKER) (test hcyw=663) 9.9 GM/DL 11.2-15.7 HEMATOCRIT (BEAKER) (test xuds=940) 31.7 % 34.1-44.9 MEAN CORPUSCULAR VOLUME (BEAKER) (test meno=825) 89.8 fL 79.4-94.8 MEAN CORPUSCULAR HEMOGLOBIN (BEAKER) (test 28.0 pg 25.6-32.2 ibdl=746) MEAN CORPUSCULAR HEMOGLOBIN CONC (BEAKER) (test 31.2 GM/DL 32.2-35.5 rera=536) RED CELL DISTRIBUTION WIDTH (BEAKER) (test 17.8 % 11.7-14.4 mawn=527) PLATELET COUNT (BEAKER) (test jdtn=277) 365 K/CU MM 150-450 MEAN PLATELET VOLUME (BEAKER) (test dggn=003) 10.4 fL 9.4-12.3 NUCLEATED RED BLOOD CELLS (BEAKER) (test 0 /100 WBC 0-0 afae=801) NEUTROPHILS RELATIVE PERCENT (BEAKER) (test 75 % dmlm=526) LYMPHOCYTES RELATIVE PERCENT (BEAKER) (test 12 % qbmq=478) MONOCYTES RELATIVE PERCENT (BEAKER) (test 9 % pdeu=686) EOSINOPHILS RELATIVE PERCENT (BEAKER) (test 3 % lfxh=238) BASOPHILS RELATIVE PERCENT (BEAKER) (test 0 % zcva=701) NEUTROPHILS ABSOLUTE COUNT (BEAKER) (test 8.15 K/ L 1.56-6.13 ezvo=861) LYMPHOCYTES ABSOLUTE COUNT (BEAKER) (test 1.32 K/ L 1.18-3.74 qzcl=260) MONOCYTES ABSOLUTE COUNT (BEAKER) (test 0.94 K/ L 0.24-0.36 jzlq=380) EOSINOPHILS ABSOLUTE COUNT (BEAKER) (test 0.32 K/ L 0.04-0.36 wfoo=880) BASOPHILS ABSOLUTE COUNT (BEAKER) (test 0.04 K/ L 0.01-0.08 wubn=233) IMMATURE GRANULOCYTES-RELATIVE PERCENT (BEAKER) 1 % 0-1 (test hoyc=6900) COMPREHENSIVE METABOLIC [id number] 06:39:00 Test Item Value Reference Range Comments TOTAL PROTEIN (BEAKER) 6.4 gm/dL 6.0-8.3 (test scid=807) ALBUMIN (BEAKER) (test 2.8 g/dL 3.5-5.0 fyoo=1690) ALKALINE PHOSPHATASE 108 U/L 40-150 (BEAKER) (test srsq=712) BILIRUBIN TOTAL (BEAKER) 0.4 mg/dL 0.2-1.2 (test cjjh=301) SODIUM (BEAKER) (test 129 meq/L 136-145 mrss=439) POTASSIUM (BEAKER) (test 3.3 meq/L 3.5-5.1 huap=407) CHLORIDE (BEAKER) (test 99 meq/L 98-107 wrrz=134) CO2 (BEAKER) (test 21 meq/L 22-29 shni=074) BLOOD UREA NITROGEN 47 mg/dL 7-21 (BEAKER) (test okyr=573) CREATININE (BEAKER) (test 3.80 mg/dL 0.57-1.25 ijcr=828) GLUCOSE RANDOM (BEAKER) 103 mg/dL 70-105 (test iian=245) CALCIUM (BEAKER) (test 9.6 mg/dL 8.4-10.2 gatx=694) AST (SGOT) (BEAKER) (test 46 U/L 5-34 xvlb=296) ALT (SGPT) (BEAKER) (test 49 U/L 6-55 ucts=753) EGFR (BEAKER) (test mL/min/1.73 sq m INSUFFICIENT CLINICAL DATA ppzf=8400) TO CALCULATE ESTIMATED GFR. [id number] 06:31:00 Test Item Value Reference Range Comments PHOSPHORUS (BEAKER) (test psrw=358) 3.2 mg/dL 2.3-4.7 [id number] 06:31:00 Test Item Value Reference Range Comments MAGNESIUM (BEAKER) (test xnsc=271) 1.7 mg/dL 1.6-2.6 PROTHROMBIN TIME/[id number] 06:12:00 Test Item Value Reference Range Comments PROTIME (BEAKER) (test ylna=608) 16.3 seconds 11.7-14.7 INR (BEAKER) (test wyim=104) 1.3 <=5.9 RECOMMENDED COUMADIN/WARFARIN INR THERAPY RANGESSTANDARD DOSE: 2.0 - 3.0 Includes: PROPHYLAXIS forvenous thrombosis, systemic embolization; TREATMENT for venous thrombosis and/or pulmonary embolus.HIGH RISK: Target INR is 2.5-3.5 for patients with mechanical heart valves.[id number] 06:12:00 Test Item Value Reference Range Comments PARTIAL THROMBOPLASTIN TIME (BEAKER) (test 92.6 seconds 22.5-36.0 hedh=328) CBC (HEMOGRAM ONLY)2018-03-24 05:58:00 Test Item Value Reference Range Comments WHITE BLOOD CELL COUNT (BEAKER) (test gcpo=682) 10.9 K/ L 3.5-10.5 RED BLOOD CELL COUNT (BEAKER) (test mpnn=057) 3.53 M/ L 3.93-5.22 HEMOGLOBIN (BEAKER) (test jebs=557) 9.9 GM/DL 11.2-15.7 HEMATOCRIT (BEAKER) (test vmbg=419) 31.7 % 34.1-44.9 MEAN CORPUSCULAR VOLUME (BEAKER) (test iapf=432) 89.8 fL 79.4-94.8 MEAN CORPUSCULAR HEMOGLOBIN (BEAKER) (test 28.0 pg 25.6-32.2 tggl=411) MEAN CORPUSCULAR HEMOGLOBIN CONC (BEAKER) (test 31.2 GM/DL 32.2-35.5 xjye=281) RED CELL DISTRIBUTION WIDTH (BEAKER) (test 17.8 % 11.7-14.4 mdjz=706) PLATELET COUNT (BEAKER) (test fclo=972) 365 K/CU MM 150-450 MEAN PLATELET VOLUME (BEAKER) (test hypi=435) 10.4 fL 9.4-12.3 NUCLEATED RED BLOOD CELLS (BEAKER) (test 0 /100 WBC 0-0 kone=561) POCT-GLUCOSE [id number] 22:41:00 Test Item Value Reference Range Comments POC-GLUCOSE METER ([facility]) 171 mg/dL 70-110 TESTED AT [facility] [address] (test djvv=4539) [place] [address] TROPONIN [id number] 21:23:00 Test Item Value Reference Range Comments TROPONIN I (BEAKER) (test eepu=734) 1.89 ng/mL 0.00-0.03 Troponin I (TnI) levels [...] NATRIURETIC PEPTIDE (BEAKER) (test 2021 pg/mL 0-100 oplk=573) LIPID [id number] 21:09:00 Test Item Value Reference Range Comments TRIGLYCERIDES (BEAKER) (test czyw=287) 132 mg/dL CHOLESTEROL (BEAKER) (test imst=856) 103 mg/dL HDL CHOLESTEROL (BEAKER) (test sfzg=174) 24 mg/dL LDL CHOLESTEROL CALCULATED (BEAKER) (test 53 mg/dL bfwq=666) Triglyceride Reference Range: Low Risk <150 Borderline 150- 199 High Risk 200-499 Very High Risk >=500Cholesterol Reference Range: Low Risk <200 Borderline 200-239 High Risk > 240HDL Cholesterol Reference Range: Low Risk >=60 High Risk <40LDL Cholesterol Reference Range: Optimal <100 Near Optimal 100-129 Borderline 130-159 High 160-189 Very High >=190 [id number] 21:08:00 Test Item Value Reference Range Comments PARTIAL THROMBOPLASTIN TIME (BEAKER) (test 107.2 seconds 22.5-36.0 hwep=309) Prior to initiating heparinPLATELET [id number] 20:54:00 Test Item Value Reference Range Comments PLATELET COUNT (BEAKER) (test kkxg=604) 364 K/CU MM 150-450
--- NOTE | 2018-08-15 09:41 | RAD REPORT ---
EXAM DESCRIPTION: CT - Head Brain Wo Cont - 08/15/2018 9:29 am CLINICAL HISTORY: Acute onset slurred speech during dialysis COMPARISON: CT head March 2018 TECHNIQUE: Axial 5 mm thick images of the head were obtained without IV contrast. All CT scans are performed using dose optimization technique as appropriate and may include automated exposure control or mA/KV adjustment according to patient size. FINDINGS: No intracranial hemorrhage, mass, edema or shift of mid-line structures. No acute cortical based infarction. No cortical edema or sulcal effacement. Patient has moderate severity atrophy and chronic ischemic change. Ventricles are in proportion. Intracranial findings are similar to the Jan ry study. Dense arterial tree calcifications are present. Mastoid air cells and visualized portions of the paranasal sinuses are clear. No acute bony findings. Old medial orbital wall fracture present. Patient was unable to fully cooperate with the examination. There is slight motion degradation. Asymm etry is created by head tilt. Findings telephoned to Dr. Bartlett 9:37 a.m. IMPRESSION: No intracranial hemorrhage. No acute cortical based infarction identified. Moderate severity atrophy and chronic ischemic change similar to comparison. Chronic ischemic changes can mask nonhemorrhagic acute infarction. MR brain followup can be obtained if there is ongoing concern for acute ischemia and the patient is able to cooperate with the examina tion.
[2018-08-15 09:57] LABS: Protime INR 1.09
[2018-08-15 10:00] LABS: RBC Red Blood Cell Count 3.56 M/uL (3.86-4.86)
[2018-08-15 10:04] LABS: Absolute Lymphocytes (CBC) 1.3 K/uL (0.7-4.9); Absolute Monocytes 0.6 K/uL (0.1-1.3); Absolute Neutrophil 6.4 K/uL (1.8-8.0); Basophils % 0.8 % (0-1.3); Eosinophils % 4.9 % (0-4.4); Hematocrit 32.4 % (36.0-45.0); Lymphocytes % 14.6 % (15.3-44.8); MPV 8.6 fL (7.6-11.3); Monocytes % 6.4 % (3.3-12.3)
--- NOTE | 2018-08-15 10:11 | RAD REPORT ---
EXAM DESCRIPTION: RAD - Chest Single View - 08/15/2018 9:44 am CLINICAL HISTORY: Stroke protocol chest film COMPARISON: March 2018 TECHNIQUE: AP portable chest image was obtained 0942 hours . FINDINGS: Patient has a baseline of chronic interstitial lung disease. Low lung volumes are noted si milar to comparison. Interstitial and hazy alveolar opacities are scattered in the right lung field. Left lung field is not substantially different from comparison. Left hemidiaphragm and left costophre jeff angle are obscured matching the prior study. Right-sided pacemaker and left-sided dialysis catheter are in place. Heart size is magnified by shall ow inspiration and portable technique. Heart size is similar to comparison. Vasculature is similar to comparison. No pneumothorax or large pleural effusion. No acute bony abnormality seen. No acute aort ic findings suspected. IMPRESSION: Interstitial and alveolar opacities worse on the right than on prior imaging. Pattern is asymmetric but still favored to be failure or volume overload. Pneumonia is a possibility as well.
[2018-08-15 10:20] LABS: Albumin 3.2 g/dL (3.4-5.0); Bilirubin Direct 0.2 mg/dL (0-0.2); Bilirubin Total 0.6 mg/dL (0.2-1.0); Magnesium 2.1 mg/dL (1.8-2.4); Potassium 3.6 mmol/L (3.5-5.1); Protein, Total 7.8 g/dL (6.4-8.2); Troponin (Emerg Dept Use Only) 0.31 ng/mL (0.0-0.045)
[2018-08-15] MEDS ORDERED: LORazepam 2 MG/ML VIAL ONE (10:44)
[2018-08-15 10:45] LABS: Anisocytosis 1+; Blood Morphology Comment NOTED (NOT SEEN); Platelet Estimate ADEQ; Urine White Blood Cell Casts OK
--- NOTE | 2018-08-15 12:02 | ER ---
Nurse's Notes [facility] Name: Dianelys Carroll Age: 83 yrs Sex: Female : 1935 Arrival Date: 08/15/2018 Time: 09:00 Bed 18 Private MD: Diagnosis: Post dialysis altered mental status- acute exacerbation Presentation: 08/15 09:00 Presenting complaint: EMS states: SLURRED SPEECH AT DIALYSIS. Transition of care: bp patient was received from another setting of care (long-term care facility)[facility]. An acute neurological deficit is present. The charge nurse has been notified. The patient has been moved to a treatment area. The patients blood glucose was checked before arriving to the hospital and was found to be normal. Onset of symptoms is unknown. Risk Assessment: Do you want to hurt yourself or someone else? Patient reports no desire to harm self or others. Initial Sepsis Screen: Does the patient meet any 2 criteria? No. Patient's initial sepsis screen is negative. Does the patient have a suspected source of infection? No. Patient's initial sepsis screen is negative. Care prior to arrival: IV initiated. 20 GA, in the left hand, Glucose check: 168. 09:00 Method Of Arrival: EMS: [facility] bp 09:00 Acuity: EFRAÍN 2 bp Triage Assessment: 09:05 The onset of the patients symptoms was August 15, 2018 at 06:00. General: Appears bp distressed, Behavior is agitated, anxious. Pain: Unable to use pain scale. Does not appear to understand pain scale. EENT: No deficits noted. Neuro: Level of Consciousness is confused, Oriented to none Speech is slurred, with expressive aphasia noted, Reports CONFUSION. Cardiovascular: Rhythm is sinus rhythm. Respiratory: Airway is patent Respiratory effort is even, unlabored, Respiratory pattern is regular, symmetrical. GI: No signs and/or symptoms were reported involving the gastrointestinal system. : No signs and/or symptoms were reported regarding the genitourinary system. Derm: No deficits noted. Musculoskeletal: Circulation, motion, and sensation intact. Range of motion: intact in all extremities. Stroke Activation: Symptom onset > 6 hours Physician: Stroke Attending; Name: ; Notified At: ; Arrived At: Physician: Chief Stroke Resident; Name: ; Notified At: ; Arrived At: Physician: Stroke Resident; Name: ; Notified At: ; Arrived At: Physician: ED Attending; Name: ; Notified At: ; Arrived At: Physician: ED Resident; Name: ; Notified At: ; Arrived At: Historical: - Allergies: 09:05 altase; bp 09:05 clopidogrel bisulfate; bp 09:05 Codeine; bp 09:05 Demerol; bp 09:05 enalapril maleate; bp 09:05 enalaprilat dihydrate; bp 09:05 HYDROCODONE; bp 09:05 Ibuprofen; bp 09:05 Morphine; bp 09:05 OPIATES; bp 09:05 propoxyphene napsylate; bp 09:05 Ramipril; bp 09:05 Simvastatin; bp 09:05 Vioxx; bp - Home Meds: 09:10 metoprolol tartrate 25 mg Oral tab 2 tabs 2 times per day [Active]; lisinopril 20 mg bp Oral CERP 1 tab once daily [Active]; aspirin 81 mg Oral TbEC 1 tab once daily [Active]; atorvastatin 40 mg Oral tab nightly [Active]; citalopram 10 mg oral tab [Active]; Aranesp (in polysorbate) 40 mcg/0.4 mL injection syrg once wkly for Anemia in Chronic Kidney Disease [Active]; Ativan 0.5 mg Oral tab 1 tab q2h for Anxiety [Active]; Benadryl 25 mg Oral cap 1 cap every 4 hours [Active]; clonidine HCl 0.1 mg Oral CERP 1 tab 2 times per day for Hypertension [Active]; Dilaudid 2mg/mL Oral liqd 1 mL every 4 hours [Active]; Effient 10 mg Oral CERP 1 tab once daily [Active]; Folbee Plus Oral once daily [Active]; gabapentin 300 mg Oral cap 1 cap 3 times per day [Active]; hyoscyamine sulfate 0.125 mg SL subl [Active]; latanoprost 0.005 % ophthalmic drop 1 drop nightly [Active]; Novolin R Sub-Q every 4 hours for Diabetes [Active]; promethazine 25 mg Oral tab 1 tab every 4 hours [Active]; Ranexa 500 mg Oral Tb12 1 tab 2 times per day [Active]; tramadol 50 mg Oral CERP 1 tab every 6 hours [Active]; Zofran (as hydrochloride) 4 mg Oral tab every 8 hours [Active]; - PMHx: 09:05 Anemia; Anxiety; candidiasis; chronic pulmonary edema; Dementia; Depression; Diabetes - bp IDDM; Dialysis; DYSPHAGIA; ESRD; Glaucoma; Hallucinations; Hyperlipidemia; Hypertension; Hypomagnesemia; Myocardial infarction; Pacemaker; TIA; - Immunization history:: Adult Immunizations up to date. - Social history:: Smoking status: Patient/guardian denies using tobacco. - Ebola Screening: : No symptoms or risks identified at this time. Screenin:05 Abuse screen: Denies threats or abuse. Denies injuries from another. Nutritional bp screening: No deficits noted. Tuberculosis screening: No symptoms or risk factors identified. Fall Risk None identified. Assessment: 09:10 VAN Scoring: Arm Drift: Minor drift Visual Disturbance: No visual disturbance noted. bp Aphasia: Expressive aphasia noted. Provider notified of +VAN scoring. Neglect: No neglect noted. The patient has not been NPO before screening. The patient is not alert and/or unable to follow commands. Bedside swallow screen discontinued. Patient kept NPO until cleared by Speech Therapy or Physician. The patient failed the bedside swallow screening. The patient will be kept NPO until cleared by Speech Therapy or Physician. Provider notified of bedside swallow screening results: Aydin Bartlett MD. T-PA (Activase) Screening: Contraindications: Patient reports onset of signs and symptoms of stroke greater than 6 hours ago: Blood pressure is more than 185/110:. Reassessment: PT TO CT. General: Appears distressed, comfortable, Behavior is agitated, anxious. Pain: Unable to use pain scale. Does not appear to understand pain scale. Neuro: Level of Consciousness is confused, Oriented to none. Cardiovascular: Rhythm is sinus rhythm. Respiratory: Airway is patent. GI: No signs and/or symptoms were reported involving the gastrointestinal system. : No signs and/or symptoms were reported regarding the genitourinary system. EENT: No deficits noted. Derm: No deficits noted. Musculoskeletal: Circulation, motion, and sensation intact. Range of motion: intact in all extremities. 09:40 Reassessment: PT RETURNED FROM CT. CONTINUES TO AOx0, AGITATED AND ANXIOUS. MD AT B/S bp FOR EVAL. 10:30 Reassessment: PT AGITATED AND YELLING, NOT FOLLOWING COMMANDS. UNABLE TO DO MRI 2/2 bp AGITATION AT THIS TIME. MD INFORMED. 11:20 Reassessment: PT UNCONSENTABLE FOR MRI AND PACER NOTED ON CXR. MRI CANCELLED. ALL bp CURRENT ORDERS COMPLETED. 12:00 Reassessment: PT CLEARED FOR D/C HOME. bp 12:26 Reassessment: REPORT TO ROB GARCIA AT [facility], TRANSPORT PENDING FOR RETURN TO [facility]. 12:45 Reassessment: D/C CANCELLED BY . PT TO BE ADMITTED. bp 13:40 Reassessment: FAMILY AT B/S, ADMIT CANCELLED. PT TO D/C TO [facility] FOR HOSPICE. bp Vital Signs: 09:05 BP 204 / 98; Pulse 84; Resp 17; Temp 98; Pulse Ox 99% ; Weight 45.36 kg; bp 09:45 BP 211 / 99; Pulse 87; Resp 13; Pulse Ox 100% on R/A; bp 11:49 BP 181 / 94; Pulse 74; Resp 18; Pulse Ox 99% on R/A; ss NIH Stroke Scale Scores: 09:10 NIHSS Score: 10 bp ED Course: 09:00 Patient arrived in ED. bp 09:00 Aydin Bartlett MD is Attending Physician. kdr 09:03 Triage completed. bp 09:05 Arm band placed on. bp 09:05 Patient has correct armband on for positive identification. Bed in low position. Call bp light in reach. Side rails up X2. 09:05 Inserted saline lock: 20 gauge in left hand, using aseptic technique. bp 09:12 EKG done, by quality assurance qa lab technician. reviewed by Aydin Bartlett MD. at1 09:29 CT Head Brain wo Cont In Process Unspecified. EDMS 09:38 Rajeev Mercado, RN is Primary Nurse. bp 09:43 X-ray completed. Portable x-ray completed in exam room. Patient tolerated procedure sw poorly. 09:44 XRAY Chest (1 view) In Process Unspecified. EDMS 12:29 Arslan Lema MD is Hospitalizing Provider. kdr 13:07 No provider procedures requiring assistance completed. Patient admitted, IV remains in bp place. 13:39 Arslan Lema MD is Referral Physician. kdr Administered Medications: 10:30 Drug: Ativan 1 mg Route: IVP; Site: left hand; bp 12:27 Follow up: Response: Anxiety decreased bp Point of Care Testing: Blood Glucose: 09:05 Blood Glucose: 168 mg/dL; bp 09:05 PRE-HOSPITAL bp Ranges: Outcome: 12:01 Discharge ordered by . kdr 12:48 Decision to Hospitalize by Provider. kdr 13:42 Discharge ordered by . kdr 14:26 Discharged to senior care. bp 14:26 Condition: stable 14:26 Discharge instructions given to family, Instructed on discharge instructions, follow up and referral plans. Demonstrated understanding of instructions, follow-up care. 14:27 Patient left the ED. bp NIH Stroke Scale - NIH Stroke Score Date: 08/15/2018 Time: 09:10 Total Score = 10 1a. Level of Consciousness (LOC) - 1(Not Alert) 1b. Level of Consciousness (LOC) (Year \T\ Age) - 2(Neither) 1c. LOC Commands (Open \T\ Closes Eyes/Accountant Clerk) - 0(Both) 2. Best Gaze (Lateral Gaze Paresis) - 1(Partial gaze palsy) 3. Visual Field Loss - 2(Complete hemianopia) 4. Facial Palsy - 0(Normal) 5a. Left Arm: Motor (10-second hold) - 1(Drift) 5b. Right Arm: Motor (10-second hold) - 1(Drift) 6a. Left Leg: Motor (5-second hold - always test supine) - 9(Amputation, joint fusion) - Notes: BKA 6b. Right Leg: Motor (5-second hold - always test supine) - 9(Amputation, joint fusion) - Notes: BKA 7. Limb Ataxia (finger/nose \T\ heel/mahmood - test with eyes open) - 0(Absent) 8. Sensory Loss (pinprick arms/legs/face) - 0(Normal) 9. Best Language: Aphasia (description/naming/reading) - 1(Mild to moderate aphasia) 10. Dysarthria (speech clarity - read or repeat words) - 1(Mild to Moderate) 11. Extinction and Inattention (visual/tactile/auditory/spatial/personal) - 0(No abnormality) Initials: bp Signatures: Dispatcher [employer] Aydin Nielsen MD MD kdr Lauren Pisano, RN RN ss Loretta Huber, solution designer EKG Tat1 Rocio Israel Brian RN RN bp
--- NOTE | 2018-08-15 12:03 | EDPHYS ---
Physician Documentation [facility] Name: Dianelys Carroll Age: 83 yrs Sex: Female : 1935 Arrival Date: 08/15/2018 Time: 09:00 Bed 18 Private MD: ED Physician Aydin Bartlett HPI: 08/15 10:40 This 83 yrs old Female presents to ER via EMS with complaints of Slurred kdr Speech. 10:40 The patient presents to the emergency department with a speech or higher order brain kdr function problem, aphasia, that is mild. Onset: The symptoms/episode began/occurred EMS reports that she had a speech change at dialysis however, the patient is an unreliable historian. Her speech is comprehensible in the ED and it is not known how far from baseline she is at the time of my initial evaluation. Context: occurred Dialysis, occurred while the patient was unknown but is initially reported as in dialysis. Associated signs and symptoms: The patient has no apparent associated signs or symptoms. Severity of symptoms: At their worst the symptoms were mild moderate just prior to arrival, in the emergency department the symptoms are unchanged. Patient's baseline: The patient's baseline is unknown at the time of initial exam. The patient is awake and mostly alert. She follow commands and interacts family appropriately with staff. Current symptoms: confusion. It is unknown whether or not the patient has had similar symptoms in the past. It is unknown whether or not the patient has recently seen a physician. Historical: - Allergies: 09:05 altase; bp 09:05 clopidogrel bisulfate; bp 09:05 Codeine; bp 09:05 Demerol; bp 09:05 enalapril maleate; bp 09:05 enalaprilat dihydrate; bp 09:05 HYDROCODONE; bp 09:05 Ibuprofen; bp 09:05 Morphine; bp 09:05 OPIATES; bp 09:05 propoxyphene napsylate; bp 09:05 Ramipril; bp 09:05 Simvastatin; bp 09:05 Vioxx; bp - Home Meds: 09:10 metoprolol tartrate 25 mg Oral tab 2 tabs 2 times per day [Active]; lisinopril 20 mg bp Oral CERP 1 tab once daily [Active]; aspirin 81 mg Oral TbEC 1 tab once daily [Active]; atorvastatin 40 mg Oral tab nightly [Active]; citalopram 10 mg oral tab [Active]; Aranesp (in polysorbate) 40 mcg/0.4 mL injection syrg once wkly for Anemia in Chronic Kidney Disease [Active]; Ativan 0.5 mg Oral tab 1 tab q2h for Anxiety [Active]; Benadryl 25 mg Oral cap 1 cap every 4 hours [Active]; clonidine HCl 0.1 mg Oral CERP 1 tab 2 times per day for Hypertension [Active]; Dilaudid 2mg/mL Oral liqd 1 mL every 4 hours [Active]; Effient 10 mg Oral CERP 1 tab once daily [Active]; Folbee Plus Oral once daily [Active]; gabapentin 300 mg Oral cap 1 cap 3 times per day [Active]; hyoscyamine sulfate 0.125 mg SL subl [Active]; latanoprost 0.005 % ophthalmic drop 1 drop nightly [Active]; Novolin R Sub-Q every 4 hours for Diabetes [Active]; promethazine 25 mg Oral tab 1 tab every 4 hours [Active]; Ranexa 500 mg Oral Tb12 1 tab 2 times per day [Active]; tramadol 50 mg Oral CERP 1 tab every 6 hours [Active]; Zofran (as hydrochloride) 4 mg Oral tab every 8 hours [Active]; - PMHx: 09:05 Anemia; Anxiety; candidiasis; chronic pulmonary edema; Dementia; Depression; Diabetes - bp IDDM; Dialysis; DYSPHAGIA; ESRD; Glaucoma; Hallucinations; Hyperlipidemia; Hypertension; Hypomagnesemia; Myocardial infarction; Pacemaker; TIA; - Immunization history:: Adult Immunizations up to date. - Social history:: Smoking status: Patient/guardian denies using tobacco. - Ebola Screening: : No symptoms or risks identified at this time. ROS: 10:40 Constitutional: Unable to obtain as the patient is a poor historian kdr 10:40 Unable to obtain ROS due to altered mental status, baseline dementia. Exam: 10:40 Constitutional: This is a well developed, well nourished patient who is awake, alert, kdr confused, cooperative for the exam but not able to answer questions approipriately. She appears mildly uncomforable in the bed but is without focal c/o. She is not oriented to time/place or situation Head/Face: Normocephalic, atraumatic. Eyes: Pupils equal round and reactive to light, extra-ocular motions intact. Lids and lashes normal. Conjunctiva and sclera are non-icteric and not injected. Cornea within normal limits. Periorbital areas with no swelling, redness, or edema. Neck: Trachea midline, no thyromegaly or masses palpated, and no cervical lymphadenopathy. Supple, full range of motion without nuchal rigidity, or vertebral point tenderness. No Meningismus. Chest/axilla: Normal chest wall appearance and motion. Nontender with no deformity. No lesions are appreciated. Cardiovascular: Regular rate and rhythm with a normal S1 and S2. No gallops, murmurs, or rubs. Normal PMI, no JVD. No pulse deficits. Respiratory: Lungs have equal breath sounds bilaterally, clear to auscultation and percussion. No rales, rhonchi or wheezes noted. No increased work of breathing, no retractions or nasal flaring. Abdomen/GI: Soft, non-tender, with normal bowel sounds. No distension or tympany. No guarding or rebound. No evidence of tenderness throughout. Back: No spinal tenderness. No costovertebral tenderness. Full range of motion. Skin: Warm, dry with normal turgor. Normal color with no rashes, no lesions, and no evidence of cellulitis. MS/ Extremity: Bilatearl BKA. Pulses equal, no cyanosis. Neurovascular intact. Full, normal range of motion. 10:40 Neuro: Moving all extremities without apparent deficit, unclear of deviation from baseline mental status. Vital Signs: 09:05 BP 204 / 98; Pulse 84; Resp 17; Temp 98; Pulse Ox 99% ; Weight 45.36 kg; bp 09:45 BP 211 / 99; Pulse 87; Resp 13; Pulse Ox 100% on R/A; bp 11:49 BP 181 / 94; Pulse 74; Resp 18; Pulse Ox 99% on R/A; ss NIH Stroke Scale Scores: 09:10 NIHSS Score: 10 bp MDM: 09:01 ED course: Unknown onset of change in speech. Patient indicated to EMS that she is like kdr this at baseline. 10:10 ED course: Stoke alter canceled after initial examination. The patient is an unreliable kdr historian. No definitive onset of symptoms. Specific symptoms or deficits that may be new or changed can not be determined. 12:01 Patient medically screened. kdr 19:05 Data reviewed: vital signs, nurses notes, lab test result(s), radiologic studies. kdr Counseling: I had a detailed discussion with the patient and/or guardian regarding: the historical points, exam findings, and any diagnostic results supporting the discharge/admit diagnosis, lab results, radiology results, the need for outpatient follow up. ED course: Daughter arrived and explained that the patient frequently has this behavior after dialysis - that the care home should know better than to send her in for this type of problem. She states that they have an appointment tomorrow to put the patient on hospice. 08/15 09:01 Order name: Basic Metabolic Panel; Complete Time: 11:35 kdr 08/15 09:01 Order name: CBC with Diff; Complete Time: 11:35 kdr 08/15 09:01 Order name: LFT's; Complete Time: 11:35 kdr 08/15 09:01 Order name: Magnesium; Complete Time: 11:35 kdr 08/15 09:01 Order name: NT PRO-BNP; Complete Time: 11:35 kdr 08/15 09:01 Order name: PT-INR; Complete Time: 10:07 kdr 08/15 09:01 Order name: Troponin (emerg Dept Use Only); Complete Time: 11:35 kdr 08/15 09:01 Order name: XRAY Chest (1 view); Complete Time: 11:35 kdr 08/15 09:01 Order name: EKG; Complete Time: 09:03 kdr 08/15 09:01 Order name: Cardiac monitoring; Complete Time: 09:38 kdr 08/15 09:01 Order name: CT Head Brain wo Cont; Complete Time: 10:07 kdr 08/15 10:15 Order name: CBC Smear Scan; Complete Time: 11:35 EDMS 08/15 09:01 Order name: EKG - Nurse/Tech; Complete Time: 09:38 kdr 08/15 09:01 Order name: IV Saline Lock; Complete Time: 09:38 kdr 08/15 09:01 Order name: Labs collected and sent; Complete Time: 09:39 kdr 08/15 09:01 Order name: O2 Per Protocol; Complete Time: 09:39 kdr 08/15 09:01 Order name: O2 Sat Monitoring; Complete Time: 09:39 kdr Administered Medications: 10:30 Drug: Ativan 1 mg Route: IVP; Site: left hand; bp 12:27 Follow up: Response: Anxiety decreased bp Point of Care Testing: Blood Glucose: 09:05 Blood Glucose: 168 mg/dL; bp 09:05 [facility]HOSPITAL bp Ranges: Critical Glucose Levels:Adult <50 mg/dl or >400 mg/dl <40 mg/dl or >180 mg/dl Disposition: 08/15/18 13:42 Discharged to Home. Impression: Post dialysis altered mental status- acute exacerbation. - Condition is Stable. - Discharge Instructions: Confusion. - Medication Reconciliation Form, Thank You Letter form. - Follow up: Arslan Lema MD; When: 1 week; Reason: If symptoms return, Further diagnostic work-up, Recheck today's complaints, Continuance of care, Re-evaluation by your physician. - Problem is an acute exacerbation. - Symptoms have improved. NIH Stroke Scale - NIH Stroke Score Date: 08/15/2018 Time: 09:10 Total Score = 10 1a. Level of Consciousness (LOC) - 1(Not Alert) 1b. Level of Consciousness (LOC) (Year \T\ Age) - 2(Neither) 1c. LOC Commands (Open \T\ Closes Eyes/Process Control Programmer) - 0(Both) 2. Best Gaze (Lateral Gaze Paresis) - 1(Partial gaze palsy) 3. Visual Field Loss - 2(Complete hemianopia) 4. Facial Palsy - 0(Normal) 5a. Left Arm: Motor (10-second hold) - 1(Drift) 5b. Right Arm: Motor (10-second hold) - 1(Drift) 6a. Left Leg: Motor (5-second hold - always test supine) - 9(Amputation, joint fusion) - Notes: BKA 6b. Right Leg: Motor (5-second hold - always test supine) - 9(Amputation, joint fusion) - Notes: BKA 7. Limb Ataxia (finger/nose \T\ heel/mahmood - test with eyes open) - 0(Absent) 8. Sensory Loss (pinprick arms/legs/face) - 0(Normal) 9. Best Language: Aphasia (description/naming/reading) - 1(Mild to moderate aphasia) 10. Dysarthria (speech clarity - read or repeat words) - 1(Mild to Moderate) 11. Extinction and Inattention (visual/tactile/auditory/spatial/personal) - 0(No abnormality) Initials: bp Signatures: Dispatcher [employer] [facility] Iris Rose, RN RN dw Aydin Bartlett MD MD kdr Rajeev Mercado RN RN bp Corrections: (The following items were deleted from the chart) 11:04 10:09 Brain Wo Cont+MRI.RAD.BRZ ordered. [facility] 12:29 12:01 08/15/2018 12:01 Discharged to Home. Impression: Anemia, unspecified. kdr Condition is Stable. Forms are Medication Reconciliation Form, Thank You Letter, Antibiotic Education, Prescription Opioid Use. Follow up: Private Physician; When: 2 - 3 days; Reason: If symptoms return, Further diagnostic work-up, Recheck today's complaints, Continuance of care, Re-evaluation by your physician. Problem is chronic. Symptoms are unchanged. kdr 12:29 12:29 08/15/2018 12:01 Discharged to Home. Impression: Anemia, unspecified; kdr Altered mental status, unspecified; Chronic renal failure. Condition is Stable. Forms are Medication Reconciliation Form, Thank You Letter, Antibiotic Education, Prescription Opioid Use. Follow up: Private Physician; When: 2 - 3 days; Reason: If symptoms return, Further diagnostic work-up, Recheck today's complaints, Continuance of care, Re-evaluation by your physician. Problem is chronic. Symptoms are unchanged. kdr 13:00 12:48 Hospitalization Ordered by Arslan Lema MD for Observation. Preliminary dw diagnosis is Altered mental status, unspecified. Bed requested for Telemetry/MedSurg (observation). Status is Observation. Condition is Fair. Problem is new. Symptoms have improved. UTI on Admission? No. kdr 13:39 13:00 08/15/2018 12:48 Hospitalization Ordered by Arslan Lema MD for kdr Observation. Preliminary diagnosis is Altered mental status, unspecified. Bed requested for Telemetry/MedSurg (observation). Status is Observation. Condition is Fair. Problem is new. Symptoms have improved. UTI on Admission? No. dw 14:27 13:42 08/15/2018 13:42 Discharged to Home. Impression: Post dialysis altered bp mental status- acute exacerbation. Condition is Stable. Forms are Medication Reconciliation Form, Thank You Letter, Antibiotic Education, Prescription Opioid Use. Follow up: Arslan Lema; When: 1 week; Reason: If symptoms return, Further diagnostic work-up, Recheck today's complaints, Continuance of care, Re-evaluation by your physician. Problem is an acute exacerbation. Symptoms have improved. kdr
[2018-08-15 15:05] VITALS: TEMP 98
[2018-08-15 15:08] VITALS: BP 181/94; O2SAT 99
--- NOTE | 2018-08-15 16:31 | EKG ---
Test Date: 2018-08-15 Test Time: 09:07:53 Cloth Layer: KAYLYN MEASUREMENT RESULTS: Intervals: Rate: 86 WY: 234 QRSD: 78 QT: 362 QTc: 433 Rincon: P: 99 WY: 234 QRS: -13 T: 140 INTERPRETIVE STATEMENTS: Sinus rhythm with 1st degree AV block Inferior infarct, age undetermined Anterior infarct, age undetermined ST & T wave abnormality, consider lateral ischemia Abnormal ECG Compared to ECG 04/08/2018 01:01:22 First degree AV block now present Myocardial infarct finding now present Ventricular paced complexes are no longer present Electronically Signed On 08-15-18 16:30:29 CDT by Marcelo Napoles
== END 2018-08-15 14:27 | disposition home or self-care (01) ==
LOC: ER 08:56 → UNDOADMOB 12:50 → ERHOLD 12:50 → ER 14:27
DX: R41.82 Altered mental status, unspecified (principal); E11.22 Type 2 diabetes mellitus with diabetic chronic kidney disease; I12.0 Hypertensive chronic kidney disease with stage 5 chronic kidney disease or end stage renal disease; N18.6 End stage renal disease; D63.1 Anemia in chronic kidney disease; E78.5 Hyperlipidemia, unspecified; F41.9 Anxiety disorder, unspecified; F32.9 Major depressive disorder, single episode, unspecified; I25.2 Old myocardial infarction; Z79.82 Long term (current) use of aspirin; Z79.4 Long term (current) use of insulin; Z88.5 Allergy status to narcotic agent; Z88.6 Allergy status to analgesic agent; Z88.8 Allergy status to other drugs, medicaments and biological substances; Z95.0 Presence of cardiac pacemaker; Z99.2 Dependence on renal dialysis
CPT/HCPCS: 36415; 70450; 71045; 80048; 80076; 83735; 83880; 84484; 85025; 85610; 93005; 96374; 99284